=== PATIENT | female | born 1935 | race African-American/Black ===

== ENCOUNTER 2017-04-16 09:33 | Inpatient (IN) | payer MEDICARE, BC ==
[~2017-04-16] VITALS: Ht 162.6 cm; Wt 88.5 kg
[~2017-04-16 09:33] MED LIST: ALBU8.5H3 INH; APIX5TAB PO; DIGO125T PO; METO-448 PO; OMEP20CA16 PO; PRED10TA PO
[2017-04-16] MEDS ORDERED: ONDANSETRON 4 MG INJ IV PRN ×2 (10:00→13:00)
[2017-04-16] MEDS ORDERED: ACETAMINOPHEN 325 MG TAB PO PRN ×2 (10:00→13:00)
--- NOTE | 2017-04-16 10:09 | ERA ---
ER Documentation Chief Complaint Date/Time DATE: 04/16/17 TIME: 10:08 Chief Complaint bib paramedics from [facility] ( direct admit) - abdominal pain HPI Patient is a 81-year-old female with hypertension and diabetes who presents with abdominal pain and rectal bleeding. She was transferred from [facility] due to insurance reasons. She was supposed to be a direct admission but there were no beds available on the floor so the patient was transferred to the ER. The patient has had abdominal pain and rectal bleeding for the past 1 week. She has rectal bleeding with every bowel movement. She denies syncope. She has left-sided abdominal pain. ROS All systems reviewed and are negative except as per history of present illness. Medications Home Meds Active Scripts Prednisone (Prednisone) 10 Mg Tab, 10 MG PO ONCE@09, #20 TAB Take 3 tabs for 2 days, then 2 tabs for 2 days, then 1 tab for 2 days, then stop Prov:DALLAS PICKETT 03/22/15 Metoprolol Tartrate* (Lopressor*) 25 Mg Tab, 75 MG PO BID, #120 TAB 3 Refills Prov:DALLAS PICKETT 03/22/15 Digoxin* (Digitek*) 0.125 Mg Tab, 0.125 MG PO DAILY@13, #30 3 Refills Prov:DALLAS PICKETT 03/22/15 Apixaban* (Eliquis*) 5 Mg Tablet, 5 MG PO BID, #90 3 Refills take 10mg (2 tabs) twice a day for 2 days, then 5mg (1 tab) twice a day Prov:DALLAS PICKETT 03/22/15 Reported Medications Albuterol Sulfate* (Proair HFA*) 8.5 Gm Hfa.aer.ad, 2 PUFF INH Q6H Y for WHEEZING AND SOB, INH 03/16/15 Omeprazole* (Omeprazole*) 20 Mg Capsule.dr, 20 MG PO DAILY, CAP 03/16/15 Allergies Allergies: Coded Allergies: No Known Allergy (Unverified , 03/19/15) PMhx/Soc Anesthesia Reaction: No Hx Neurological Disorder: No Hx Respiratory Disorders: No Hx Cardiac Disorders: Yes (HTN) Hx Psychiatric Problems: No Hx Miscellaneous Medical Probl: Yes (asthma, htn) Hx Alcohol Use: No Hx Substance Use: No Hx Tobacco Use: Yes (part of 1 cig/day) FmHx Family History: No diabetes Physical Exam Vitals Vital Signs Date Time Temp Pulse Resp B/P Pulse Ox O2 Delivery O2 Flow Rate FiO2 04/16/17 09:51 98.4 64 19 150/74 98 Physical Exam Const: No acute distress Head: Atraumatic Eyes: Normal Conjunctiva ENT: Normal External Ears, Nose and Mouth. Neck: Full range of motion..~ No meningismus. Resp: Clear to auscultation bilaterally Cardio: Regular rate and rhythm, no murmurs Abd: Soft, left lower quadrant tenderness to palpation without rebound or guarding Skin: No petechiae or rashes Back: No midline or flank tenderness Ext: No cyanosis, or edema Neur: Awake and alert Psych: Normal Mood and Affect Results 24 hrs Current Medications Medications (Trade) Dose Ordered Sig/Srinivas Route PRN Reason Start Time Stop Time Status Last Admin Dose Admin Ondansetron HCl (Zofran Inj) 4 mg BRIDGE ORDER PRN IV NAUSEA AND/OR VOMITING 04/16/17 10:00 04/17/17 09:59 Acetaminophen (Tylenol Tab) 650 mg ER BRIDGE PRN PO MILD PAIN/FEVER 04/16/17 10:00 04/17/17 09:59 Procedures/MDM Laboratory studies and imaging studies done at [facility] were reviewed in the ER. Smoking Cessation Therapy: Pt. was lectured for greater than 3 minutes on the health risks of continued smoking and the benefits of cessation. Patient is a 81-year-old female who presents with rectal bleeding and diverticulitis. The patient was transferred and was supposed to be a direct admission but unfortunately there were no beds available. I spoke with Dr. Hdz from the panel team as the patient has preferred [employer] insurance and will be admitted to the panel team. The patient will be admitted to a medical surgical bed. Departure Diagnosis: Primary Impression: GI bleed Qualified Code: K92.2 - Gastrointestinal hemorrhage, unspecified gastrointestinal hemorrhage type Additional Impression: Diverticulitis Qualified Code: K57.33 - Diverticulitis of large intestine without perforation or abscess with bleeding Condition: KIKI Hightower MD Apr 16, 2017 10:09
--- NOTE | 2017-04-16 11:14 | HP ---
Date/Time of Note Date/Time of Note DATE: 04/16/17 TIME: 11:14 Assessment/Plan VTE Prophylaxis VTE Prophylaxis Intervention: SCD's Assessment/Plan Assessment/Plan 81 yo F with AFib on anticoagulation admitted for BRBPR and abd pain, imaging with diverticulosis without diverticulitis. Suspect this is the etio of pt's BRBPR and it was exacerbated by pt's NOAC #diverticulosis NPO, IVFs consider general surgery eval if symptoms persist #AFib -cont bb and dig -check dig level -hold ATC #?hematuria -check UA DVT prophx: SCDs only HPI/ROS Admit Date/Time Admit Date/Time Hx of Present Illness CC: abd pain abd BRBPR 81 yo F with pmhx AFib on anticoagulation presented to OSH with c/o 3-4 weeks of constant abd pain, and 3-4 days of BRBPR, also possibly had an episode of hematuria. Pt denies any similar symptoms previously. OSH ER CT with diverticulosis without diverticulitis or abscess, hgb 14. Pt denies any fevers, chills, nausea, or vomiting. PMH/Family/Social Past Medical History AFib on ATC ?asthma Social History lives in the community with her daughter and grandchildren Exam/Review of Systems Vital Signs Vitals Vital Signs Date Time Temp Pulse Resp B/P Pulse Ox O2 Delivery O2 Flow Rate FiO2 04/16/17 09:51 98.4 64 19 150/74 98 Exam Exam nad EOMI MMM lungs clear rrr no mrg abd soft no le edema no rashes OSH labs and imaging reviewed of note PCP checked a CA 125 for unclear reason, returned at 36.4. No ovarian abnormalities seen on OSH imaging negative RADHA and unremarkable rectal exam per OSH documentation RAMIRO MORRIS MD Apr 16, 2017 11:14
[2017-04-16] MEDS ORDERED: morphine 4 MG/ML VIAL IV STA (11:19)
[2017-04-16] MEDS ORDERED: ONDANSETRON 4 MG TAB PO PRN (13:00)
[2017-04-16] MEDS ORDERED: NACL 0.9% 3 ML SYG IV SCH (13:00)
[2017-04-16] MEDS ORDERED: morphine 2 MG INJ IV PRN (13:00)
[2017-04-16] MEDS: SOD CHLORIDE 0.9% 1,000 ML IV SCH ×2 (13:13→19:09)
[2017-04-16 15:22] VITALS: Ht 162.6 cm; Wt 88.5 kg
[2017-04-16 15:24] VITALS: BP 184/84; PULSE 59; RESP 18
[2017-04-16] MEDS: DIGOXIN 0.125 MG TAB PO SCH (16:39)
[2017-04-16 17:15] VITALS: BP 154/80; PULSE 70; RESP 15
[2017-04-16 20:00] VITALS: BP 189/84; PULSE 63; RESP 18
[2017-04-16] MEDS ORDERED: hydrALAzine 20 MG INJ IV PRN ×2 (20:00)
[2017-04-16] MEDS: METOPROLOL 25 MG TAB PO SCH (20:03)
[2017-04-16] MEDS: HYDROCODONE/APAP (5/325) TAB PO PRN (20:03)
[2017-04-16 20:35] VITALS: BP 156/69; PULSE 76; RESP 18
[2017-04-16] MEDS: INSULIN ASPART [NOVOLOG] 3 ML PEN SC SCH (20:42)
[2017-04-16] MEDS ORDERED: GLUCAGON 1 MG INJ IM PRN (21:00)
[2017-04-16] MEDS ORDERED: GLUCOSE GEL 15 GRAM TUBE PO PRN ×2 (21:00)
[2017-04-16] MEDS ORDERED: GLUCOSE GEL 15 GRAM TUBE BUCCAL PRN (21:00)
[2017-04-16] MEDS ORDERED: DEXTROSE 50% 50 ML SYRINGE IV PRN ×2 (21:00)
[2017-04-16 23:02] LABS: ADD UMIC NO; UR ASCORBIC ACID NEGATIVE (NEGATIVE); UR BILIRUBIN (Dip) NEGATIVE (NEGATIVE); UR BLOOD (Dip) NEGATIVE (NEGATIVE); UR CLARITY CLEAR (CLEAR); UR COLOR STRAW (YELLOW); UR GLUCOSE (Dip) NEGATIVE (NEGATIVE); UR KETONES (Dip) NEGATIVE (NEGATIVE); UR LEUKOCYTE ESTERASE (Dip) NEGATIVE Leu/ul (NEGATIVE); UR NITRITE (Dip) NEGATIVE (NEGATIVE); UR SPECIFIC GRAVITY (Dip) 1.004 (1.003-1.030); UR TOTAL PROTEIN (Dip) NEGATIVE (NEGATIVE); UR UROBILINOGEN (Dip) NEGATIVE (NEGATIVE)
[2017-04-16 23:07] VITALS: BP 135/65; PULSE 75; RESP 18
[2017-04-17] VITALS (11 sets, daily range): BP systolic 135–211; BP diastolic 66–102; PULSE 73–95; RESP 18–20
[2017-04-17] MEDS ORDERED: ACCU-CHEK XX SCH (02:00)
[2017-04-17] MEDS: ACCU-CHEK XX SCH (02:00)
[2017-04-17] MEDS: SOD CHLORIDE 0.9% 1,000 ML IV SCH ×3 (03:25→22:05)
[2017-04-17] MEDS: ALBUTEROL 18 GM INHALER INH PRN ×2 (05:15→12:58)
[2017-04-17] MEDS: HYDROCODONE/APAP (5/325) TAB PO PRN (05:15)
[2017-04-17] MEDS: PANTOPRAZOLE (EC) 40 MG TAB PO SCH (05:15)
[2017-04-17 05:30] LABS: BASOPHILS % 0.9 % (0.0-2.0); EOSINOPHILS # 0.4 10^3/ul (0.0-0.5); EOSINOPHILS % 7.7 % (0.0-7.0); HEMOGLOBIN 13.5 g/dl (12.0-16.0); LYMPHOCYTES # 1.5 10^3/ul (0.8-2.9); LYMPHOCYTES % 32.6 % (15.0-51.0); MEAN CORPUSCULAR HEMOGLOBIN 28.4 pg (29.0-33.0); MEAN CORPUSCULAR HGB CONC 32.1 g/dl (32.0-37.0); MEAN CORPUSCULAR VOLUME 88.4 fl (82.0-101.0); MONOCYTE # 0.5 10^3/ul (0.3-0.9); MONOCYTES % 10.2 % (0.0-11.0); NEUTROPHIL # 2.3 10^3/ul (1.6-7.5); NEUTROPHILS % 48.4 % (39.0-77.0); PLATELET COUNT 153 10^3/UL (140-415); RED BLOOD COUNT 4.75 10^6/ul (4.20-5.40); RED CELL DISTRIBUTION WIDTH 14.4 % (11.5-14.5); WHITE BLOOD COUNT 4.7 10^3/ul (4.8-10.8)
[2017-04-17 06:15] LABS: CALCIUM 9.3 mg/dl (8.4-10.2); CREATININE 1.09 mg/dl (0.44-1.00); POTASSIUM 4.4 mmol/L (3.5-5.1)
[2017-04-17] MEDS: INSULIN ASPART [NOVOLOG] 3 ML PEN SC SCH ×4 (07:50→21:00)
[2017-04-17] MEDS: METOPROLOL 25 MG TAB PO SCH ×2 (08:47→20:14)
[2017-04-17] MEDS ORDERED: predniSONE 10 MG TAB PO SCH (09:00)
[2017-04-17] MEDS: DIGOXIN 0.125 MG TAB PO SCH (12:11)
--- NOTE | 2017-04-17 14:21 | CONS ---
Date/Time of Note Date/Time of Note DATE: 04/17/17 TIME: 14:03 Assessment/Plan Assessment/Plan Additional Assessment/Plan Assessment * Hematochezia R/O Diverticulosis vs R/O supratherapeutic INR vs others * COPD Asthma * Atrial fibrillation * Hypertension * History of DVT Plan * Stool occult blood * monitor hemoglobin and hematocrit ,transfuse per protocol * Colonoscopy tomorrow risks and benefit explained to patient * Clearance to be secured with Pulmonary * Check PT and INR * start patient on clear liquids Consultation Date/Type/Reason Admit Date/Time Date of Consultation: Apr 17, 2017 Type of Consultation: gastroenterology Reason for Consultation hematochezia Referring Provider: RAMIRO MORRIS MD Hx of Present Illness 81 year old female with past medical history of atrial fibrillation on anticoagulation,diabetes,COPD was transferred to our hospital room because of hematochezia.Patient was initially seen at [facility] complaining left lower quadrant pain with hematochezia 2 days.She denies any history of chest pain,nausea nor vomiting nor hematemesis.Laboratory workup performed at at [place] revealed CT scan multiple gallstone,small right kidney, diverticulosis with.diverticulitis,normal appendix,no signs of obstruction.PT 15.8PTT 33.4. Presently ,patient complains of shortness of breath on Oxygen 2 liters,denies any abdominal pain and claims to be hungry.No evidence of hematochezia. We have discuss the planned to do possible colonoscopy tomorrow once cleared by pulmonary ,will check PT,INR and correct it before any planned procedure Constitutional: improved, no complaints Eyes: no complaints ENT: no complaints Respiratory: shortness of breath Cardiovascular: no complaints Gastrointestinal: blood, pain Genitourinary: no complaints Musculoskeletal: no complaints Skin: no complaints Neurologic: no complaints Endocrine: no complaints Lymphatic: no complaints Psychological: nl mood/affect, no complaints Immunologic: no complaints Past Medical History Medical History: deep vein thrombosis, gallstones, hypertension, hypothyroid, other (atrial fibrillation,asthma) Social History Smoking Status: Current every day smoker Exam/Review of Systems Vital Signs Vitals Vital Signs Date Time Temp Pulse Resp B/P Pulse Ox O2 Delivery O2 Flow Rate FiO2 04/17/17 08:17 97.6 78 18 153/94 98 04/17/17 06:36 Nasal Cannula Intake and Output 04/16/17 04/16/17 04/17/17 15:00 23:00 07:00 Intake Total 1310 ml Output Total 900 ml Balance 410 ml Exam Constitutional: alert, frail, oriented Psych: nl mood/affect Head: atraumatic, normocephalic Eyes: EOMI, PERRL, nl conjunctiva, nl lids, nl sclera ENMT: nl external ears & nose, nl lips & teeth, nl nasal mucosa & septum, other (2 liter oxygen) Neck: non-tender, supple Respiratory: diminished breath sounds, normal air movement Cardiovascular: irregular rhythm, nl pulses Gastrointestinal: nl liver, spleen, non-tender, soft Musculoskeletal: nl extremities to inspection, nl gait and stance Extremities: normal pulses Neurological: nl mental status, nl speech, nl strength Skin: nl turgor, No rash or lesions Lymph: nl lymph nodes Results Result Diagram: 04/17/17 0448 04/17/178 Results 24 hrs Laboratory Tests Test 04/16/17 20:41 04/16/17 22:50 04/17/17 01:56 04/17/17 04:48 Bedside Glucose 163 104 Urine Color STRAW Urine Clarity CLEAR Urine pH 7.0 Urine Specific [place] 1.004 Urine Ketones NEGATIVE Urine Nitrite NEGATIVE Urine Bilirubin NEGATIVE Urine Urobilinogen NEGATIVE Urine Leukocyte Esterase NEGATIVE Urine Hemoglobin NEGATIVE Urine Glucose NEGATIVE Urine Total Protein NEGATIVE White Blood Count 4.7 #L Red Blood Count 4.75 Hemoglobin 13.5 Hematocrit 42.0 Mean Corpuscular Volume 88.4 Mean Corpuscular Hemoglobin 28.4 L Mean Corpuscular Hemoglobin Concent 32.1 Red Cell Distribution Width 14.4 Platelet Count 153 Mean Platelet Volume 12.0 #H Neutrophils % 48.4 Lymphocytes % 32.6 Monocytes % 10.2 Eosinophils % 7.7 H Basophils % 0.9 Nucleated Red Blood Cells % 0.0 Neutrophils # 2.3 Lymphocytes # 1.5 Monocytes # 0.5 Eosinophils # 0.4 Basophils # 0.0 Nucleated Red Blood Cells # 0.0 Sodium Level 145 H Potassium Level 4.4 Chloride Level 108 Carbon Dioxide Level 25 Anion Gap 16 Blood Urea Nitrogen 17 Creatinine 1.09 H Glucose Level 96 Calcium Level 9.3 Digoxin Level 0.5 L Test 04/17/17 08:46 04/17/17 12:07 Bedside Glucose 100 103 Medications Medications Current Medications Sodium Chloride (NS) 1,000 ml @ 125 mls/hr Q8H IV Last administered on 12:11; Admin Dose 125 MLS/HR; Start 04/16/17 at 12:38 Ondansetron HCl (Zofran Tab) 4 mg Q6H PRN PO NAUSEA AND/OR VOMITING; Start at 13:00 Ondansetron HCl (Zofran Inj) 4 mg Q6H PRN IV NAUSEA AND/OR VOMITING; Start at 13:00 Acetaminophen (Tylenol Tab) 650 mg Q6H PRN PO PAIN LEVEL 1-3 OR FEVER; Start at 13:00 Acetaminophen/ Hydrocodone Bitart ([place] (5/325)) 1 tab Q6H PRN PO MODERATE PAIN LEVEL 4-6 Last administered on 04/17/17 05:15; Admin Dose 1 TAB; Start at 13:00 Morphine Sulfate (morphine) 2 mg Q4H PRN IV SEVERE PAIN LEVEL 7-10; Start 04/16 at 13:00 Albuterol (Ventolin Hfa) 2 puff Q6H PRN INH WHEEZING AND SOB Last administered on 04/17/17 12:58; Admin Dose 2 PUFF; Start 04/16/17 at 13:00 Digoxin (Digoxin) 0.125 mg DAILY@13 PO Last administered on 04/17/17 12:11; Admin Dose 0.125 MG; Start 04/16/17 at 13:00 Metoprolol Tartrate (Lopressor) 75 mg BID PO Last administered on 04/17/17 08: 47; Admin Dose 75 MG; Start 04/16/17 at 21:00 Pantoprazole (Protonix Tab) 40 mg DAILY@06 PO Last administered on 04/17/17 05 :15; Admin Dose 40 MG; Start 04/17/17 at 06:00 Diagnostic Test (Pha) (Accu-Chek) 1 ea 02 XX ; Start 04/17/17 at 02:00 Miscellaneous Information 1 ea NOTE XX ; Start 04/16/17 at 21:00 Glucose (Glutose) 15 gm Q15M PRN PO DECREASED GLUCOSE; Start 04/16/17 at 21:00 Glucose (Glutose) 22.5 gm Q15M PRN PO DECREASED GLUCOSE; Start 04/16/17 at 21: 00 Dextrose (D50w Syringe) 25 ml Q15M PRN IV DECREASED GLUCOSE; Start 04/16/17 at 21:00 Dextrose (D50w Syringe) 50 ml Q15M PRN IV DECREASED GLUCOSE; Start 04/16/17 at 21:00 Glucagon (Glucagen) 1 mg Q15M PRN IM DECREASED GLUCOSE; Start 04/16/17 at 21:00 Glucose (Glutose) 15 gm Q15M PRN BUCCAL DECREASED GLUCOSE; Start 04/16/17 at 21 :00 ANNE IBARRA MD Apr 17, 2017 14:14
[2017-04-17] MEDS ORDERED: BISACODYL (EC) 5 MG TAB PO ONE (14:30)
[2017-04-17] MEDS ORDERED: MAGNESIUM CITRATE 300 ML BTL PO ONE (17:30)
--- NOTE | 2017-04-17 17:42 | PN ---
Date/Time of Note Date/Time of Note DATE: 04/17/17 TIME: 17:41 Assessment/Plan VTE Prophylaxis VTE Prophylaxis Intervention: SCD's Lines/Catheters IV Catheter Type (from Nrsg): Peripheral IV Assessment/Plan Assessment/Plan 81 yo F with AFib on anticoagulation admitted for BRBPR and abd pain, imaging with diverticulosis without diverticulitis. Suspect this is the etio of pt's BRBPR and it was exacerbated by pt's NOAC #diverticulosis GI eval, f/u recs #AFib -cont bb and dig -check dig level low, checking albumin -hold ATC #?hematuria -UA without any blood. suspect pt had BRBPR which she falsely attributed though can get repeat UA as outpatient DVT prophx: SCDs only Subjective 24 Hr Interval Summary Free Text/Dictation abd pain unchanged. Pt with a small BM with blood earlier this AM Exam/Review of Systems Vital Signs Vitals Vital Signs Date Time Temp Pulse Resp B/P Pulse Ox O2 Delivery O2 Flow Rate FiO2 04/17/17 15:04 98.0 80 18 136/101 96 04/17/17 06:36 Nasal Cannula Intake and Output 04/16/17 04/16/17 04/17/17 15:00 23:00 07:00 Intake Total 1310 ml Output Total 900 ml Balance 410 ml Exam nad no mrg lungs clear abd soft no rashes hgb 13s Results Result Diagram: 04/17/17 0448 04/17/17 0448 Results 24 hrs Laboratory Tests Test 04/16/17 20:41 04/16/17 22:50 04/17/17 01:56 04/17/17 04:48 Bedside Glucose 163 104 Urine Color STRAW Urine Clarity CLEAR Urine pH 7.0 Urine Specific [place] 1.004 Urine Ketones NEGATIVE Urine Nitrite NEGATIVE Urine Bilirubin NEGATIVE Urine Urobilinogen NEGATIVE Urine Leukocyte Esterase NEGATIVE Urine Hemoglobin NEGATIVE Urine Glucose NEGATIVE Urine Total Protein NEGATIVE White Blood Count 4.7 #L Red Blood Count 4.75 Hemoglobin 13.5 Hematocrit 42.0 Mean Corpuscular Volume 88.4 Mean Corpuscular Hemoglobin 28.4 L Mean Corpuscular Hemoglobin Concent 32.1 Red Cell Distribution Width 14.4 Platelet Count 153 Mean Platelet Volume 12.0 #H Neutrophils % 48.4 Lymphocytes % 32.6 Monocytes % 10.2 Eosinophils % 7.7 H Basophils % 0.9 Nucleated Red Blood Cells % 0.0 Neutrophils # 2.3 Lymphocytes # 1.5 Monocytes # 0.5 Eosinophils # 0.4 Basophils # 0.0 Nucleated Red Blood Cells # 0.0 Sodium Level 145 H Potassium Level 4.4 Chloride Level 108 Carbon Dioxide Level 25 Anion Gap 16 Blood Urea Nitrogen 17 Creatinine 1.09 H Glucose Level 96 Calcium Level 9.3 Digoxin Level 0.5 L Test 04/17/17 08:46 04/17/17 12:07 04/17/17 17:36 Bedside Glucose 100 103 191 Medications Medications Current Medications Sodium Chloride (NS) 1,000 ml @ 125 mls/hr Q8H IV Last administered on 12:11; Admin Dose 125 MLS/HR; Start 04/16/17 at 12:38 Ondansetron HCl (Zofran Tab) 4 mg Q6H PRN PO NAUSEA AND/OR VOMITING; Start at 13:00 Ondansetron HCl (Zofran Inj) 4 mg Q6H PRN IV NAUSEA AND/OR VOMITING; Start at 13:00 Acetaminophen (Tylenol Tab) 650 mg Q6H PRN PO PAIN LEVEL 1-3 OR FEVER; Start at 13:00 Acetaminophen/ Hydrocodone Bitart ([place] (5/325)) 1 tab Q6H PRN PO MODERATE PAIN LEVEL 4-6 Last administered on 04/17/17 05:15; Admin Dose 1 TAB; Start at 13:00 Morphine Sulfate (morphine) 2 mg Q4H PRN IV SEVERE PAIN LEVEL 7-10; Start 04/16 at 13:00 Albuterol (Ventolin Hfa) 2 puff Q6H PRN INH WHEEZING AND SOB Last administered on 04/17/17 12:58; Admin Dose 2 PUFF; Start 04/16/17 at 13:00 Digoxin (Digoxin) 0.125 mg DAILY@13 PO Last administered on 04/17/17 12:11; Admin Dose 0.125 MG; Start 04/16/17 at 13:00 Metoprolol Tartrate (Lopressor) 75 mg BID PO Last administered on 04/17/17 08: 47; Admin Dose 75 MG; Start 04/16/17 at 21:00 Pantoprazole (Protonix Tab) 40 mg DAILY@06 PO Last administered on 04/17/17t 05 :15; Admin Dose 40 MG; Start 04/17/17 at 06:00 Diagnostic Test (Pha) (Accu-Chek) 1 ea 02 XX ; Start 04/17/17 at 02:00 Miscellaneous Information 1 ea NOTE XX ; Start 04/16/17 at 21:00 Glucose (Glutose) 15 gm Q15M PRN PO DECREASED GLUCOSE; Start 04/16/17 at 21:00 Glucose (Glutose) 22.5 gm Q15M PRN PO DECREASED GLUCOSE; Start 04/16/17 at 21: 00 Dextrose (D50w Syringe) 25 ml Q15M PRN IV DECREASED GLUCOSE; Start 04/16/17 at 21:00 Dextrose (D50w Syringe) 50 ml Q15M PRN IV DECREASED GLUCOSE; Start 04/16/17 at 21:00 Glucagon (Glucagen) 1 mg Q15M PRN IM DECREASED GLUCOSE; Start 04/16/17 at 21:00 Glucose (Glutose) 15 gm Q15M PRN BUCCAL DECREASED GLUCOSE; Start 04/16/17 at 21 :00 Polyethylene Glycol (Miralax) 119 gm ONCE ONCE PO ; Start 04/17/17 at 18:30; Stop 04/17/17 at 18:31 RAMIRO MORRIS MD Apr 17, 2017 17:42
[2017-04-17] MEDS: ALBUTEROL/IPRATROPIUM (NEB) 3 ML AMP HHN SCH ×2 (17:53→20:37)
--- NOTE | 2017-04-17 18:09 | RADRPT ---
PROCEDURE: XR Chest. CLINICAL INDICATION: Preoperative. TECHNIQUE: Single frontal view. COMPARISON: None. FINDINGS: The lungs are clear. The heart is enlarged. There is calcification in the aorta consistent with atherosclerosis. Surgic al clips are present in the neck. There is no pleural effusion. There is no pneumothorax. IMPRESSION: 1. Cardiomegaly and atherosclerosis. 2. Prior neck surgery. 3. Clear lungs. RPTAT: QQ .Melvin Yap MD, MD Date Time Electronically viewed and signed by .Melvin Yap MD, MD on 04/17/2017 18:09 .R/
[2017-04-17] MEDS ORDERED: POLYETHYLENE GLYCOL 3350 119 GM POWDER PO ONE (18:30)
[2017-04-17] MEDS ORDERED: hydrALAzine 20 MG INJ IV PRN (21:30)
[2017-04-17] MEDS ORDERED: AMLODIPINE 10 MG TAB PO ONE (21:30)
[2017-04-18] VITALS (20 sets, daily range): BP systolic 120–176; BP diastolic 58–92; PULSE 80–100; RESP 16–20
[2017-04-18] MEDS: ACCU-CHEK XX SCH (01:12)
[2017-04-18] MEDS: ALBUTEROL/IPRATROPIUM (NEB) 3 ML AMP HHN SCH ×6 (01:20→21:00)
[2017-04-18] MEDS: SOD CHLORIDE 0.9% 1,000 ML IV SCH ×4 (04:38→23:27)
[2017-04-18 05:39] LABS: INR 1.24; PROTIME 15.7 Sec (12.2-14.2); PT RATIO 1.2
[2017-04-18 05:43] LABS: BASOPHILS % 0.4 % (0.0-2.0); EOSINOPHILS # 0.2 10^3/ul (0.0-0.5); EOSINOPHILS % 3.7 % (0.0-7.0); HEMATOCRIT 45.7 % (37.0-47.0); HEMOGLOBIN 14.5 g/dl (12.0-16.0); LYMPHOCYTES # 1.5 10^3/ul (0.8-2.9); LYMPHOCYTES % 28.7 % (15.0-51.0); MEAN CORPUSCULAR HEMOGLOBIN 27.9 pg (29.0-33.0); MEAN CORPUSCULAR HGB CONC 31.7 g/dl (32.0-37.0); MEAN CORPUSCULAR VOLUME 88.1 fl (82.0-101.0); MEAN PLATELET VOLUME 12.3 fl (7.4-10.4); MONOCYTE # 0.5 10^3/ul (0.3-0.9); MONOCYTES % 10.1 % (0.0-11.0); NEUTROPHIL # 3.1 10^3/ul (1.6-7.5); NEUTROPHILS % 56.9 % (39.0-77.0); PLATELET COUNT 117 10^3/UL (140-415); RED BLOOD COUNT 5.19 10^6/ul (4.20-5.40); RED CELL DISTRIBUTION WIDTH 14.6 % (11.5-14.5); WHITE BLOOD COUNT 5.4 10^3/ul (4.8-10.8)
[2017-04-18] MEDS: PANTOPRAZOLE (EC) 40 MG TAB PO SCH (06:00)
[2017-04-18] MEDS ORDERED: POLYETHYLENE GLYCOL 3350 119 GM POWDER PO ONE ×2 (06:00→06:26)
[2017-04-18 06:58] LABS: ALBUMIN 3.6 g/dl (3.3-4.9); ALBUMIN/GLOBULIN RATIO 1.28; BILIRUBIN,INDIRECT 0.3 mg/dl (0-1.1); BILIRUBIN,TOTAL 0.3 mg/dl (0.2-1.3); CALCIUM 9.2 mg/dl (8.4-10.2); CREATININE 1.01 mg/dl (0.44-1.00); POTASSIUM 4.2 mmol/L (3.5-5.1); TOTAL PROTEIN 6.4 g/dl (6.1-8.1)
[2017-04-18] MEDS: INSULIN ASPART [NOVOLOG] 3 ML PEN SC SCH ×4 (07:50→21:06)
[2017-04-18] MEDS ORDERED: BISACODYL (EC) 5 MG TAB PO ONE (08:00)
[2017-04-18] MEDS: METOPROLOL 25 MG TAB PO SCH ×2 (09:24→21:13)
--- NOTE | 2017-04-18 11:43 | PN ---
Date/Time of Note Date/Time of Note DATE: 04/18/17 TIME: 11:42 Assessment/Plan VTE Prophylaxis VTE Prophylaxis Intervention: SCD's Lines/Catheters IV [facility]from [facility]): Peripheral IV Urinary Cath still in place: No Assessment/Plan Assessment/Plan 81 yo F with AFib on anticoagulation admitted for BRBPR and abd pain, imaging with diverticulosis without diverticulitis. Suspect this is the etio of pt's BRBPR and it was exacerbated by pt's NOAC #diverticulosis -GI eval, Cscope today? -holding NOAC #AFib -cont bb and dig -dig level low, recheck level prior to discharge -hold ATC #asthma: cont home inhalers pulm cs per GI request #?hematuria -UA without any blood. suspect pt had BRBPR which she falsely attributed though can get repeat UA as outpatient DVT prophx: SCDs only Subjective 24 Hr Interval Summary Free Text/Dictation Pt resting comfortably this AM. Negative UA results dw pt Exam/Review of Systems Vital Signs Vitals Vital Signs Date Time Temp Pulse Resp B/P Pulse Ox O2 Delivery O2 Flow Rate FiO2 04/18/17 09:20 88 20 99 Nasal Cannula 2.0 04/18/17 08:01 98.6 136/62 Intake and Output 04/17/17 04/17/17 04/18/17 15:00 23:00 07:00 Intake Total 750 ml 1105 ml 950 ml Output Total 800 ml Balance 750 ml 1105 ml 150 ml Exam nad no mrg lungs clear abd soft no rashes hgb 14s Results Result Diagram: 04/18/17 0432 04/18/17 0432 Results 24 hrs Laboratory Tests Test 04/17/17 12:07 04/17/17 17:36 04/17/17 21:10 04/18/17 04:32 Bedside Glucose 103 191 111 White Blood Count 5.4 Red Blood Count 5.19 Hemoglobin 14.5 Hematocrit 45.7 Mean Corpuscular Volume 88.1 Mean Corpuscular Hemoglobin 27.9 L Mean Corpuscular Hemoglobin Concent 31.7 L Red Cell Distribution Width 14.6 H Platelet Count 117 #L Mean Platelet Volume 12.3 H Neutrophils % 56.9 Lymphocytes % 28.7 Monocytes % 10.1 Eosinophils % 3.7 Basophils % 0.4 Nucleated Red Blood Cells % 0.0 Neutrophils # 3.1 Lymphocytes # 1.5 Monocytes # 0.5 Eosinophils # 0.2 Basophils # 0.0 Nucleated Red Blood Cells # 0.0 Prothrombin Time 15.7 H Prothrombin Time Ratio 1.2 INR International Normalized Ratio 1.24 Activated Partial Thromboplast Time 26.9 Sodium Level 145 H Potassium Level 4.2 Chloride Level 109 Carbon Dioxide Level 24 Anion Gap 16 Blood Urea Nitrogen 12 Creatinine 1.01 H Glucose Level 128 Calcium Level 9.2 Total Bilirubin 0.3 Direct Bilirubin 0.00 Indirect Bilirubin 0.3 Aspartate Amino Transf (AST/SGOT) 21 Alanine Aminotransferase (ALT/SGPT) 22 Alkaline Phosphatase 65 Total Protein 6.4 Albumin 3.6 Globulin 2.80 Albumin/Globulin Ratio 1.28 Test 04/18/17 08:21 Bedside Glucose 135 Medications Medications Current Medications Sodium Chloride (NS) 1,000 ml @ 125 mls/hr Q8H IV Last administered on 22:05; Admin Dose 125 MLS/HR; Start 04/16/17 at 12:38 Ondansetron HCl (Zofran Tab) 4 mg Q6H PRN PO NAUSEA AND/OR VOMITING; Start at 13:00 Ondansetron HCl (Zofran Inj) 4 mg Q6H PRN IV NAUSEA AND/OR VOMITING Last administered on 04/17/17 20:55; Admin Dose 4 MG; Start 04/16/17 at 13:00 Acetaminophen (Tylenol Tab) 650 mg Q6H PRN PO PAIN LEVEL 1-3 OR FEVER Last administered on 04/18/17 09:27; Admin Dose 650 MG; Start 04/16/17 at 13:00 Acetaminophen/ Hydrocodone Bitart ([place] (5/325)) 1 tab Q6H PRN PO MODERATE PAIN LEVEL 4-6 Last administered on 04/17/17 05:15; Admin Dose 1 TAB; Start at 13:00 Morphine Sulfate (morphine) 2 mg Q4H PRN IV SEVERE PAIN LEVEL 7-10 Last administered on 04/17/17 20:17; Admin Dose 2 MG; Start 04/16/17 at 13:00 Albuterol (Ventolin Hfa) 2 puff Q6H PRN INH WHEEZING AND SOB Last administered on 04/17/17 12:58; Admin Dose 2 PUFF; Start 04/16/17 at 13:00 Digoxin (Digoxin) 0.125 mg DAILY@13 PO Last administered on 04/17/17 12:11; Admin Dose 0.125 MG; Start 04/16/17 at 13:00 Metoprolol Tartrate (Lopressor) 75 mg BID PO Last administered on 04/18/17 09: 24; Admin Dose 75 MG; Start 04/16/17 at 21:00 Pantoprazole (Protonix Tab) 40 mg DAILY@06 PO Last administered on 04/17/17 05 :15; Admin Dose 40 MG; Start 04/17/17 at 06:00 Diagnostic Test (Pha) (Accu-Chek) 1 ea 02 XX ; Start 04/17/17 at 02:00 Miscellaneous Information 1 ea NOTE XX ; Start 04/16/17 at 21:00 Glucose (Glutose) 15 gm Q15M PRN PO DECREASED GLUCOSE; Start 04/16/17 at 21:00 Glucose (Glutose) 22.5 gm Q15M PRN PO DECREASED GLUCOSE; Start 04/16/17 at 21: 00 Dextrose (D50w Syringe) 25 ml Q15M PRN IV DECREASED GLUCOSE; Start 04/16/17 at 21:00 Dextrose (D50w Syringe) 50 ml Q15M PRN IV DECREASED GLUCOSE; Start 04/16/17 at 21:00 Glucagon (Glucagen) 1 mg Q15M PRN IM DECREASED GLUCOSE; Start 04/16/17 at 21:00 Glucose (Glutose) 15 gm Q15M PRN BUCCAL DECREASED GLUCOSE; Start 04/16/17 at 21 :00 Hydralazine HCl (Apresoline) 10 mg Q6H PRN IV ELEVATED BLOOD PRESSURE Last administered on 04/17/17 22:07; Admin Dose 10 MG; Start 04/17/17 at 21:30 RAMIRO MORRIS MD Apr 18, 2017 11:43
[2017-04-18] MEDS: DIGOXIN 0.125 MG TAB PO SCH (13:36)
--- NOTE | 2017-04-18 14:47 | CONS ---
Date/Time of Note Date/Time of Note DATE: 04/18/17 TIME: 14:44 Assessment/Plan Assessment/Plan Chief Complaint/Hosp Course Assessment 1. Lower GI bleed etiology unclear, possible diverticular disease. 2. Likely COPD given extensive and ongoing tobacco history. 3. Chronic hypoxemic respiratory failure is agreed to above Plan 1. Colonoscopy scheduled for today. Stable to proceed from pulmonary standpoint. Will require continued supplemental oxygen. 2. Advised on smoking cessation and follow-up with me as an outpatient 3. Continue bronchodilators if needed during this admission 4. GI recommendations following procedure Problems: Consultation Date/Type/Reason Admit Date/Time Date of Consultation: Apr 18, 2017 Type of Consultation: Pulmonary Hx of Present Illness 81-year-old lady presents with 3-4 day history of bright red blood per rectum. No syncopal episodes no loss of consciousness no hemoptysis or hematemesis. She had a CT of the abdomen which showed diverticulosis but no diverticulitis. Currently she has mild suprapubic tenderness but no acute abdomen. Upon further questioning she has supplemental O2 for several years now from an extensive tobacco history. She says she started smoking at the age of 14 continues to smoke to this day. She is currently smoking less than half a pack a day with the addition of supplemental oxygen by nasal cannula! Patient takes anticoagulation for chronic atrial fibrillation. Patient states she has had no recent exacerbations of her COPD she currently does not have a pulmonary physician. As above. Constitutional: improved, no complaints Eyes: no complaints ENT: no complaints Respiratory: shortness of breath Cardiovascular: no complaints Gastrointestinal: blood, pain Genitourinary: no complaints Musculoskeletal: no complaints Skin: no complaints Neurologic: no complaints Endocrine: no complaints Lymphatic: no complaints Psychological: nl mood/affect Immunologic: no complaints Past Medical History Atrial fibrillation Medical History: deep vein thrombosis, gallstones, hypertension, hypothyroid, other (atrial fibrillation,asthma) Social History Smoking Status: Current every day smoker Exam/Review of Systems Vital Signs Vitals Vital Signs Date Time Temp Pulse Resp B/P Pulse Ox O2 Delivery O2 Flow Rate FiO2 04/18/17 13:57 98.6 85 20 154/75 99 04/18/17 13:25 Nasal Cannula 2.0 Intake and Output 04/17/17 04/17/17 04/18/17 15:00 23:00 07:00 Intake Total 750 ml 1105 ml 950 ml Output Total 800 ml Balance 750 ml 1105 ml 150 ml Exam GENERAL: Well-nourished well-developed lady comfortable at rest talking full complete sentences VITAL SIGNS: per chart NECK: Supple. No JVD or lymphadenopathy. CARDIAC EXAM: S1, S2. No added sounds or murmurs. CHEST: clear bilaterally, No added sounds, rales or wheezes ABDOMEN: Soft, nontender. No guarding or rebound. EXTREMITIES: No cyanosis, clubbing or edema. NEUROLOGIC: Generalized weakness. No focal deficits. Results Result Diagram: 04/18/17 0432 04/18/17 0432 Results 24 hrs Laboratory Tests Test 04/17/17 17:36 04/17/17 21:10 04/18/17 04:32 04/18/17 08:21 Bedside Glucose 191 111 135 White Blood Count 5.4 Red Blood Count 5.19 Hemoglobin 14.5 Hematocrit 45.7 Mean Corpuscular Volume 88.1 Mean Corpuscular Hemoglobin 27.9 L Mean Corpuscular Hemoglobin Concent 31.7 L Red Cell Distribution Width 14.6 H Platelet Count 117 #L Mean Platelet Volume 12.3 H Neutrophils % 56.9 Lymphocytes % 28.7 Monocytes % 10.1 Eosinophils % 3.7 Basophils % 0.4 Nucleated Red Blood Cells % 0.0 Neutrophils # 3.1 Lymphocytes # 1.5 Monocytes # 0.5 Eosinophils # 0.2 Basophils # 0.0 Nucleated Red Blood Cells # 0.0 Prothrombin Time 15.7 H Prothrombin Time Ratio 1.2 INR International Normalized Ratio 1.24 Activated Partial Thromboplast Time 26.9 Sodium Level 145 H Potassium Level 4.2 Chloride Level 109 Carbon Dioxide Level 24 Anion Gap 16 Blood Urea Nitrogen 12 Creatinine 1.01 H Glucose Level 128 Calcium Level 9.2 Total Bilirubin 0.3 Direct Bilirubin 0.00 Indirect Bilirubin 0.3 Aspartate Amino Transf (AST/SGOT) 21 Alanine Aminotransferase (ALT/SGPT) 22 Alkaline Phosphatase 65 Total Protein 6.4 Albumin 3.6 Globulin 2.80 Albumin/Globulin Ratio 1.28 Test 04/18/17 12:27 Bedside Glucose 127 Medications Medications Current Medications Sodium Chloride (NS) 1,000 ml @ 125 mls/hr Q8H IV Last administered on t 12:27; Admin Dose 125 MLS/HR; Start 04/16/17 at 12:38 Ondansetron HCl (Zofran Tab) 4 mg Q6H PRN PO NAUSEA AND/OR VOMITING; Start at 13:00 Ondansetron HCl (Zofran Inj) 4 mg Q6H PRN IV NAUSEA AND/OR VOMITING Last administered on 04/17/17 20:55; Admin Dose 4 MG; Start 04/16/17 at 13:00 Acetaminophen (Tylenol Tab) 650 mg Q6H PRN PO PAIN LEVEL 1-3 OR FEVER Last administered on 04/18/17 09:27; Admin Dose 650 MG; Start 04/16/17 at 13:00 Acetaminophen/ Hydrocodone Bitart ([place] (5/325)) 1 tab Q6H PRN PO MODERATE PAIN LEVEL 4-6 Last administered on 04/17/17 05:15; Admin Dose 1 TAB; Start at 13:00 Morphine Sulfate (morphine) 2 mg Q4H PRN IV SEVERE PAIN LEVEL 7-10 Last administered on 04/17/17 20:17; Admin Dose 2 MG; Start 04/16/17 at 13:00 Albuterol (Ventolin Hfa) 2 puff Q6H PRN INH WHEEZING AND SOB Last administered on 04/17/17 12:58; Admin Dose 2 PUFF; Start 04/16/17 at 13:00 Digoxin (Digoxin) 0.125 mg DAILY@13 PO Last administered on 04/18/17 13:36; Admin Dose 0.125 MG; Start 04/16/17 at 13:00 Metoprolol Tartrate (Lopressor) 75 mg BID PO Last administered on 04/18/17 09: 24; Admin Dose 75 MG; Start 04/16/17 at 21:00 Pantoprazole (Protonix Tab) 40 mg DAILY@06 PO Last administered on 04/17/17 05 :15; Admin Dose 40 MG; Start 04/17/17 at 06:00 Diagnostic Test (Pha) (Accu-Chek) 1 ea 02 XX ; Start 04/17/17 at 02:00 Miscellaneous Information 1 ea NOTE XX ; Start 04/16/17 at 21:00 Glucose (Glutose) 15 gm Q15M PRN PO DECREASED GLUCOSE; Start 04/16/17 at 21:00 Glucose (Glutose) 22.5 gm Q15M PRN PO DECREASED GLUCOSE; Start 04/16/17 at 21: 00 Dextrose (D50w Syringe) 25 ml Q15M PRN IV DECREASED GLUCOSE; Start 04/16/17 at 21:00 Dextrose (D50w Syringe) 50 ml Q15M PRN IV DECREASED GLUCOSE; Start 04/16/17 at 21:00 Glucagon (Glucagen) 1 mg Q15M PRN IM DECREASED GLUCOSE; Start 04/16/17 at 21:00 Glucose (Glutose) 15 gm Q15M PRN BUCCAL DECREASED GLUCOSE; Start 04/16/17 at 21 :00 Hydralazine HCl (Apresoline) 10 mg Q6H PRN IV ELEVATED BLOOD PRESSURE Last administered on 04/17/17t 22:07; Admin Dose 10 MG; Start 04/17/17 at 21:30 PAT[facility] FRANKS [facility], [facility] Apr 18, 2017 14:47
[2017-04-18] MEDS ORDERED: ONDANSETRON 4 MG INJ IV PRN (16:00)
[2017-04-18] MEDS ORDERED: HYDROmorphONE (0.2 MG/ML) 10ML SYG IV PRN (16:00)
[2017-04-18] MEDS ORDERED: LIDOCAINE 2% (SDV) 5 ML INJ ONE (16:05)
[2017-04-18] MEDS ORDERED: PROPOFOL 20 ML ONE (16:05)
--- NOTE | 2017-04-18 16:35 | OPR ---
Date/Time of Note Date/Time of Note DATE: 04/18/17 TIME: 16:34 Operative Report Preoperative Diagnosis * Hematochezia Postoperative Diagnosis Impression: * Poor preparation precludes adequate examination * Diverticulosis left side of the colon * Large internal hemorrhoids Plan: * Advance diet as tolerated * Repeat colonoscopy within 6 months with 2 day preparation . Operation/Procedure Performed * Colonoscopy Surgeon: ANNE IBARRA MD Anesthesia: MAC Estimated Blood Loss: none Specimens * None Grafts/Implants * None Complications: None ANNE IBARRA MD Apr 18, 2017 16:35
[2017-04-18] MEDS ORDERED: LABETALOL HCL 20MG INJ IV PRN (17:00)
[2017-04-18] MEDS ORDERED: hydrALAzine 20 MG INJ IV PRN (17:00)
--- NOTE | 2017-04-18 19:05 | RADRPT ---
Vent Rate: 89 bpm RR Interval: 0 msec NE Interval: 0 msec QRS Duration: 104 msec QT Interval: 350 msec QTC Interval: 425 msec P-R-T Nichols: 0 - -57 - 110 degrees Atrial fibrillation Left axis deviation Minimal voltage criteria for LVH, may be normal variant Anterior infarct , age undetermined ST amp; T wave abnormality, consider lateral ischemia or digitalis effect Abnormal ECG Electronically Signed By: Shaquille Virk [id number]
[2017-04-19 00:02] VITALS: BP 135/85
[2017-04-19] MEDS: ALBUTEROL/IPRATROPIUM (NEB) 3 ML AMP HHN SCH ×4 (01:00→12:43)
[2017-04-19] MEDS: ACCU-CHEK XX SCH (02:00)
[2017-04-19] MEDS: SOD CHLORIDE 0.9% 1,000 ML IV SCH ×2 (04:38→08:33)
[2017-04-19 04:50] LABS: BASOPHILS % 0.6 % (0.0-2.0); EOSINOPHILS # 0.1 10^3/ul (0.0-0.5); EOSINOPHILS % 2.6 % (0.0-7.0); HEMATOCRIT 42.4 % (37.0-47.0); HEMOGLOBIN 13.3 g/dl (12.0-16.0); LYMPHOCYTES # 1.3 10^3/ul (0.8-2.9); LYMPHOCYTES % 24.8 % (15.0-51.0); MEAN CORPUSCULAR HEMOGLOBIN 27.6 pg (29.0-33.0); MEAN CORPUSCULAR HGB CONC 31.4 g/dl (32.0-37.0); MEAN PLATELET VOLUME 11.7 fl (7.4-10.4); MONOCYTE # 0.5 10^3/ul (0.3-0.9); MONOCYTES % 9.6 % (0.0-11.0); NEUTROPHIL # 3.4 10^3/ul (1.6-7.5); PLATELET COUNT 151 10^3/UL (140-415); RED BLOOD COUNT 4.82 10^6/ul (4.20-5.40); RED CELL DISTRIBUTION WIDTH 14.7 % (11.5-14.5); WHITE BLOOD COUNT 5.4 10^3/ul (4.8-10.8)
[2017-04-19] MEDS: PANTOPRAZOLE (EC) 40 MG TAB PO SCH (05:35)
[2017-04-19] MEDS: INSULIN ASPART [NOVOLOG] 3 ML PEN SC SCH ×2 (07:50→13:07)
[2017-04-19 07:56] VITALS: BP 170/82; RESP 16
[2017-04-19] MEDS: METOPROLOL 25 MG TAB PO SCH (08:33)
--- NOTE | 2017-04-19 09:26 | CONS ---
Date/Time of Note Date/Time of Note DATE: 04/19/17 TIME: 09:25 Assessment/Plan Assessment/Plan Additional Assessment/Plan Assessment and recommendations; 1. Patient admitted for GI bleed with underlying history of COPD which is fairly stable at this point. Continue current supportive care. Further GI workup is pending. Consultation Date/Type/Reason Admit Date/Time Apr 16, 2017 at 09:37 Initial Consult Date 04/18/17 Type of Consultation: Pulmonary Referring Provider: RAMIRO MORRIS MD 24 HR Interval Summary Free Text/Dictation Patient condition stable. Denies any shortness of breath, chest pain. Any further GI bleed. Denies any abdominal pain, nausea or vomiting. General exam; elderly woman, awake and alert, currently in no distress. Exam/Review of Systems Vital Signs Vitals Vital Signs Date Time Temp Pulse Resp B/P Pulse Ox O2 Delivery O2 Flow Rate FiO2 04/19/17 08:16 78 18 99 Nasal Cannula 2.0 04/19/17 07:56 98.1 170/82 Intake and Output 04/18/17 04/18/17 04/19/17 15:00 23:00 07:00 Intake Total 1050 ml 1898 ml Balance 1050 ml 1898 ml Exam HEENT exam; supple neck, no JVD. No lymphadenopathy. Midline trachea. No thyromegaly. Patient is edentulous and wears dentures. Has bilateral intraocular lens implants. Chest exam; diminished but clear breath sound. S1-S2 audible, no murmurs. Abdomen exam; soft, nontender. There is very minimal suprapubic tenderness. Bowel sounds audible. No organomegaly. Extremity exam; no peripheral edema. No clubbing. Pulses 1+ bilaterally. HOSPITAL ADMINISTRATOR exam; no focal deficit. Results Result Diagram: 04/19/17 0422 04/18/17 0432 Results 24 hrs Laboratory Tests Test 04/18/17 12:27 04/18/17 16:52 04/18/17 21:03 04/19/17 02:25 Bedside Glucose 127 95 183 117 Test 04/19/17 04:22 04/19/17 08:36 White Blood Count 5.4 Red Blood Count 4.82 Hemoglobin 13.3 Hematocrit 42.4 Mean Corpuscular Volume 88.0 Mean Corpuscular Hemoglobin 27.6 L Mean Corpuscular Hemoglobin Concent 31.4 L Red Cell Distribution Width 14.7 H Platelet Count 151 # Mean Platelet Volume 11.7 H Neutrophils % 62.0 Lymphocytes % 24.8 Monocytes % 9.6 Eosinophils % 2.6 Basophils % 0.6 Nucleated Red Blood Cells % 0.0 Neutrophils # 3.4 Lymphocytes # 1.3 Monocytes # 0.5 Eosinophils # 0.1 Basophils # 0.0 Nucleated Red Blood Cells # 0.0 Digoxin Level 0.5 L Bedside Glucose 97 Medications Medications Current Medications Sodium Chloride (NS) 1,000 ml @ 125 mls/hr Q8H IV Last administered on 08:33; Admin Dose 125 MLS/HR; Start 04/16/17 at 12:38 Ondansetron HCl (Zofran Tab) 4 mg Q6H PRN PO NAUSEA AND/OR VOMITING; Start at 13:00 Ondansetron HCl (Zofran Inj) 4 mg Q6H PRN IV NAUSEA AND/OR VOMITING Last administered on 04/17/17 20:55; Admin Dose 4 MG; Start 04/16/17 at 13:00 Acetaminophen (Tylenol Tab) 650 mg Q6H PRN PO PAIN LEVEL 1-3 OR FEVER Last administered on 04/18/17 09:27; Admin Dose 650 MG; Start 04/16/17 at 13:00 Acetaminophen/ Hydrocodone Bitart ([place] (5/325)) 1 tab Q6H PRN PO MODERATE PAIN LEVEL 4-6 Last administered on 04/17/17 05:15; Admin Dose 1 TAB; Start at 13:00 Morphine Sulfate (morphine) 2 mg Q4H PRN IV SEVERE PAIN LEVEL 7-10 Last administered on 04/17/17 20:17; Admin Dose 2 MG; Start 04/16/17 at 13:00 Albuterol (Ventolin Hfa) 2 puff Q6H PRN INH WHEEZING AND SOB Last administered on 04/17/17 12:58; Admin Dose 2 PUFF; Start 04/16/17 at 13:00 Digoxin (Digoxin) 0.125 mg DAILY@13 PO Last administered on 04/18/17 13:36; Admin Dose 0.125 MG; Start 04/16/17 at 13:00 Metoprolol Tartrate (Lopressor) 75 mg BID PO Last administered on 04/19/17 08: 33; Admin Dose 75 MG; Start 04/16/17 at 21:00 Pantoprazole (Protonix Tab) 40 mg DAILY@06 PO Last administered on 04/19/17 05 :35; Admin Dose 40 MG; Start 04/17/17 at 06:00 Diagnostic Test (Pha) (Accu-Chek) 1 ea 02 XX ; Start 04/17/17 at 02:00 Miscellaneous Information 1 ea NOTE XX ; Start 04/16/17 at 21:00 Glucose (Glutose) 15 gm Q15M PRN PO DECREASED GLUCOSE; Start 04/16/17 at 21:00 Glucose (Glutose) 22.5 gm Q15M PRN PO DECREASED GLUCOSE; Start 04/16/17 at 21: 00 Dextrose (D50w Syringe) 25 ml Q15M PRN IV DECREASED GLUCOSE; Start 04/16/17 at 21:00 Dextrose (D50w Syringe) 50 ml Q15M PRN IV DECREASED GLUCOSE; Start 04/16/17 at 21:00 Glucagon (Glucagen) 1 mg Q15M PRN IM DECREASED GLUCOSE; Start 04/16/17 at 21:00 Glucose (Glutose) 15 gm Q15M PRN BUCCAL DECREASED GLUCOSE; Start 04/16/17 at 21 :00 Hydralazine HCl (Apresoline) 10 mg Q6H PRN IV ELEVATED BLOOD PRESSURE Last administered on 04/17/17 22:07; Admin Dose 10 MG; Start 04/17/17 at 21:30 ZACH HEALY Apr 19, 2017 09:26
--- NOTE | 2017-04-19 09:43 | PDOCDIS ---
Discharge Instructions DIAGNOSIS Discharge Diagnosis diverticulosis, internal hemorrhoids CONDITION Patient Condition: Stable HOME CARE INSTRUCTIONS: Special Diet: nothing by mouth FOLLOW UP/APPOINTMENTS Follow-up Plan Schedule a follow up appointment with your regular doctor within the next 7 days. Do not take your blood thinner (Eliquis) until you see your regular doctor. Also your digoxin level was slightly low (0.5). Please let your regular doctor know in case he/she wants to change the dose. The nuclear criticality safety engineer/stomach doctor is advising a follow up colonoscopy in 6 months. Please call his office to schedule a post discharge follow up appointment Dr Kishor Vang Office Address [id number] [address] Office RAMIRO MORRIS MD Apr 19, 2017 09:43
--- NOTE | 2017-04-19 09:45 | DS ---
Date/Time of Note Date/Time of Note DATE: 04/19/17 TIME: 09:43 Discharge Summary Admission/Discharge Info Admit Date/Time Apr 16, 2017 at 09:37 Discharge Date/Time Discharge Diagnosis diverticulosis, internal hemorrhoids Patient Condition: Good Consults gastroenterology Hx of Present Illness CC: abd pain abd BRBPR 81 yo F with pmhx AFib on anticoagulation presented to OSH with c/o 3-4 weeks of constant abd pain, and 3-4 days of BRBPR, also possibly had an episode of hematuria. Pt denies any similar symptoms previously. OSH ER CT with diverticulosis without diverticulitis or abscess, hgb 14. Pt denies any fevers, chills, nausea, or vomiting. Hospital Course Assessment 1. Lower GI bleed etiology unclear, possible diverticular disease. 2. Likely COPD given extensive and ongoing tobacco history. 3. Chronic hypoxemic respiratory failure is agreed to above Plan 1. Colonoscopy scheduled for today. Stable to proceed from pulmonary standpoint. Will require continued supplemental oxygen. 2. Advised on smoking cessation and follow-up with me as an outpatient 3. Continue bronchodilators if needed during this admission 4. GI recommendations following procedure Home Meds Active Scripts Temazepam* (Temazepam*) 15 Mg Capsule, 15 MG PO HS Y for INSOMNIA for 1 Day, #1 CAP Prov:RAMIRO MORRIS MD 04/19/17 Glipizide* (Glipizide*) 10 Mg Tablet, 10 MG PO DAILY for 30 Days, #30 TAB Prov:RAMIRO MORRIS MD 04/19/17 Nifedipine* (Nifedipine ER*) 60 Mg Tablet.sa, 60 MG PO DAILY for 30 Days, #30 TAB.SA Prov:RAMIRO MORRIS MD 04/19/17 Lisinopril* (Lisinopril*) 40 Mg Tablet, 40 MG PO DAILY, #30 TAB Prov:RAMIRO MORRIS MD 04/19/17 Metoprolol Tartrate* (Lopressor*) 25 Mg Tab, 50 MG PO BID, #120 TAB 3 Refills Prov:RAMIRO MORRIS MD 04/19/17 Metformin Hcl* (Metformin Hcl*) 1,000 Mg Tablet, 1000 MG PO BID, #30 TAB Prov:RAMIRO MORRIS MD 04/19/17 Digoxin* (Digitek*) 0.125 Mg Tab, 0.125 MG PO DAILY@13, #30 3 Refills Prov:NIEVES,DALLAS 03/22/15 Reported Medications Albuterol Sulfate* (Proair HFA*) 8.5 Gm Hfa.aer.ad, 2 PUFF INH Q6H Y for WHEEZING AND SOB, INH 03/16/15 Omeprazole* (Omeprazole*) 20 Mg Capsule.dr, 20 MG PO DAILY, CAP 03/16/15 Discontinued Scripts Apixaban* (Eliquis*) 5 Mg Tablet, 5 MG PO BID, #90 3 Refills take 10mg (2 tabs) twice a day for 2 days, then 5mg (1 tab) twice a day Prov:DALLAS PICKETT 03/22/15 Prednisone (Prednisone) 10 Mg Tab, 10 MG PO ONCE@09, #20 TAB Take 3 tabs for 2 days, then 2 tabs for 2 days, then 1 tab for 2 days, then stop Prov:DALLAS PICKETT 03/22/15 Follow-up Plan hold kevin PCP f/u within 7 days to discuss when to restart PCP to possibly adjust digoxin level GI f/u for scheduling repeat CScope Primary Care Provider Gordy Nunez DO Time spent on discharge: > 30 minutes Pending Labs Laboratory Tests Test 04/18/17 12:27 04/18/17 16:52 04/18/17 21:03 04/19/17 02:25 Bedside Glucose 127mg/dL (70-220) 95mg/dL (70-220) 183mg/dL (70-220) 117mg/dL (70-220) Test 04/19/17 04:22 04/19/17 08:36 White Blood Count 5.410^3/ul (4.8-10.8) Red Blood Count 4.8210^6/ul (4.20-5.40) Hemoglobin 13.3g/dl (12.0-16.0) Hematocrit 42.4% (37.0-47.0) Mean Corpuscular Volume 88.0fl (82.0-101.0) Mean Corpuscular Hemoglobin 27.6pg (29.0-33.0) Mean Corpuscular Hemoglobin Concent 31.4g/dl (32.0-37.0) Red Cell Distribution Width 14.7% (11.5-14.5) Platelet Count 51191^3/UL (140-415) Mean Platelet Volume 11.7fl (7.4-10.4) Neutrophils % 62.0% (39.0-77.0) Lymphocytes % 24.8% (15.0-51.0) Monocytes % 9.6% (0.0-11.0) Eosinophils % 2.6% (0.0-7.0) Basophils % 0.6% (0.0-2.0) Nucleated Red Blood Cells % 0.0/100WBC (0.0-0.0) Neutrophils # 3.410^3/ul (1.6-7.5) Lymphocytes # 1.310^3/ul (0.8-2.9) Monocytes # 0.510^3/ul (0.3-0.9) Eosinophils # 0.110^3/ul (0.0-0.5) Basophils # 0.010^3/ul (0.0-0.1) Nucleated Red Blood Cells # 0.010^3/ul (0.0-0.0) Digoxin Level 0.5ng/ml (1.0-2.0) Bedside Glucose 97mg/dL (70-220) RAMIRO MORRIS MD Apr 19, 2017 09:45
[2017-04-19] MEDS ORDERED: METF1000 PO (10:39)
[2017-04-19] MEDS ORDERED: LISI40TA9 PO (10:41)
[2017-04-19] MEDS ORDERED: METO-448 PO (10:41)
[2017-04-19] MEDS ORDERED: NIFE60TA7 PO (10:42)
[2017-04-19] MEDS ORDERED: GLIP-95 PO (10:42)
[2017-04-19] MEDS ORDERED: TEMA15CA PO (10:43)
--- NOTE | 2017-04-19 10:57 | DS ---
Date/Time of Note Date/Time of Note DATE: 04/19/17 TIME: 10:55 Discharge Summary Admission/Discharge Info Admit Date/Time Apr 16, 2017 at 09:37 Discharge Date/Time Discharge Diagnosis diverticulosis, internal hemorrhoids Patient Condition: Good Consults gastroenterology, pulmonology Procedures CT done at OSH ER prior to admission: diverticulosis without diverticulitis ovaries not identified CScope 7.28 Impression: * Poor preparation precludes adequate examination * Diverticulosis left side of the colon * Large internal hemorrhoids Plan: * Repeat colonoscopy within 6 months with 2 day preparation Hx of Present Illness CC: abd pain abd BRBPR 81 yo F with pmhx AFib on anticoagulation presented to OSH with c/o 3-4 weeks of constant abd pain, and 3-4 days of BRBPR, also possibly had an episode of hematuria. Pt denies any similar symptoms previously. OSH ER CT with diverticulosis without diverticulitis or abscess, hgb 14. Pt denies any fevers, chills, nausea, or vomiting. Hospital Course 81 yo F with hx AFib NOT on anticoagulation transferred from [facility] in [place] for insurance reasons. Pt had presented to OSH with c/o abd pain, BRBPR. OSH imaging the diverticulosis without diverticulitis, hgb 13- 14. Pt seen by GI, underwent CScope notable for poor prep, diverticulosis and internal hemorrhoids. Hgb remained stable during pt's time in the hospital. Pulm saw patient as GI had wanted preprocedure clearance given hx of smoking, pt advised to stop smoking and continue PRN albuterol. Of note, med rec done on admission by ?ER? ?nurse? had patient as being on Eliquis. She is not on this medication. I called her preferred [facility] and was told an rx was sent over by a physician at [facility] that was never picked up. Pt has no recollection of being at [facility] in the recent past. Labs during patient's stay notable for slightly low digoxin level of 0.5. Defer to PCP re need for adjustment. On paperwork from PCP, it was also indicated that pt's CA 125 is slightly high at 36. 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 Patient to f/u with GI for diverticulosis and internal hemorrhoids or can be referred to general surgery at PCP's discretion Pt will need repeat c scope in 6 mos given poor prep. Copy of this discharge summary, pt's OSH CT report, and patient's lab work provided to patient to bring to PCP f/u appt. Pt also given rx for Metamucil. Home Meds Active Scripts Psyllium Husk (Metamucil) 0.52 Gm Capsule, 0.52 GM PO DAILY for 30 Days, #30 CAP Prov:RAMIRO MORRIS MD 04/19/17 Temazepam* (Temazepam*) 15 Mg Capsule, 15 MG PO HS Y for INSOMNIA for 1 Day, #1 CAP Prov:RAMIRO MORRIS MD 04/19/17 Glipizide* (Glipizide*) 10 Mg Tablet, 10 MG PO DAILY for 30 Days, #30 TAB Prov:RAMIRO MORRIS MD 04/19/17 Nifedipine* (Nifedipine ER*) 60 Mg Tablet.sa, 60 MG PO DAILY for 30 Days, #30 TAB.SA Prov:RAMIRO MORRIS MD 04/19/17 Lisinopril* (Lisinopril*) 40 Mg Tablet, 40 MG PO DAILY, #30 TAB Prov:RAMIRO MORRIS MD 04/19/17 Metoprolol Tartrate* (Lopressor*) 25 Mg Tab, 50 MG PO BID, #120 TAB 3 Refills Prov:RAMIRO MORRIS MD 04/19/17 Metformin Hcl* (Metformin Hcl*) 1,000 Mg Tablet, 1000 MG PO BID, #30 TAB Prov:RAMIRO MORRIS MD 04/19/17 Digoxin* (Digitek*) 0.125 Mg Tab, 0.125 MG PO DAILY@13, #30 3 Refills Prov:DALLAS PICKETT 03/22/15 Reported Medications Albuterol Sulfate* (Proair HFA*) 8.5 Gm Hfa.aer.ad, 2 PUFF INH Q6H Y for WHEEZING AND SOB, INH 03/16/15 Omeprazole* (Omeprazole*) 20 Mg Capsule.dr, 20 MG PO DAILY, CAP 03/16/15 Discontinued Scripts Apixaban* (Eliquis*) 5 Mg Tablet, 5 MG PO BID, #90 3 Refills take 10mg (2 tabs) twice a day for 2 days, then 5mg (1 tab) twice a day Prov:DALLAS PICKETT 03/22/15 Prednisone (Prednisone) 10 Mg Tab, 10 MG PO ONCE@09, #20 TAB Take 3 tabs for 2 days, then 2 tabs for 2 days, then 1 tab for 2 days, then stop Prov:DALLAS PICKETT 03/22/15 Follow-up Plan PCP Friday at 2pm GI within next 2 weeks Primary Care Provider juanpablo denton Time spent on discharge: > 30 minutes Pending Labs Laboratory Tests Test 04/18/17 12:27 04/18/17 16:52 04/18/17 21:03 04/19/17 02:25 Bedside Glucose 127mg/dL (70-220) 95mg/dL (70-220) 183mg/dL (70-220) 117mg/dL (70-220) Test 04/19/17 04:22 04/19/17 08:36 White Blood Count 5.410^3/ul (4.8-10.8) Red Blood Count 4.8210^6/ul (4.20-5.40) Hemoglobin 13.3g/dl (12.0-16.0) Hematocrit 42.4% (37.0-47.0) Mean Corpuscular Volume 88.0fl (82.0-101.0) Mean Corpuscular Hemoglobin 27.6pg (29.0-33.0) Mean Corpuscular Hemoglobin Concent 31.4g/dl (32.0-37.0) Red Cell Distribution Width 14.7% (11.5-14.5) Platelet Count 67122^3/UL (140-415) Mean Platelet Volume 11.7fl (7.4-10.4) Neutrophils % 62.0% (39.0-77.0) Lymphocytes % 24.8% (15.0-51.0) Monocytes % 9.6% (0.0-11.0) Eosinophils % 2.6% (0.0-7.0) Basophils % 0.6% (0.0-2.0) Nucleated Red Blood Cells % 0.0/100WBC (0.0-0.0) Neutrophils # 3.410^3/ul (1.6-7.5) Lymphocytes # 1.310^3/ul (0.8-2.9) Monocytes # 0.510^3/ul (0.3-0.9) Eosinophils # 0.110^3/ul (0.0-0.5) Basophils # 0.010^3/ul (0.0-0.1) Nucleated Red Blood Cells # 0.010^3/ul (0.0-0.0) Digoxin Level 0.5ng/ml (1.0-2.0) Bedside Glucose 97mg/dL (70-220) RAMIRO MORRIS MD Apr 19, 2017 10:57
[2017-04-19] MEDS ORDERED: PSYL0.5213 PO (11:10)
[2017-04-19 11:37] VITALS: BP 172/77; PULSE 72
[2017-04-19] MEDS: DIGOXIN 0.125 MG TAB PO SCH (13:02)
--- NOTE | 2017-04-23 06:22 | GILP ---
DATE OF PROCEDURE: 04/18/2017 PROCEDURE: Colonoscopy to cecum. HISTORY AND INDICATIONS: The patient is being evaluated for hematochezia. PREMEDICATION: Monitored anesthesia care by anesthesiologist. INSTRUMENT USED: Olympus colonoscope. PREPARATION: Very poor despite extensive lavage, compromising the examination to a significant extent TECHNIQUE: After informed consent, with the patient/relatives understanding the procedure, its indications potential risks and complications, including but not limited to: allergic reaction, bleeding, perforation, infection, missed lesions and after all pertinent questions were answered to the patient's satisfaction, the patient/relatives signed the witnessed informed consent. Following this, premedication was administered slowly IV push by under careful cardiovascular and respiratory monitoring with pulse oximetry, automatic blood pressure and automotive dismantler. Once the sedative effect was achieved, the patient was placed in the left lateral decubitus position, digital rectal examination was performed. The colonoscope was then introduced and advanced under visual control throughout all segments of the colon including: the rectum, sigmoid, descending colon, splenic flexure, transverse colon, hepatic flexure, ascending colon and finally reaching the cecum which was clearly identified by transillumination, finger indentation and the ileocecal valve. Careful examination of the mucosa of the lower gastrointestinal tract both on insertion as well as withdrawal of the instrument disclosed the following findings: RECTAL EXAMINATION: No evidence of perirectal disease, no masses. COLONIC MUCOSA: There is diverticulosis in the left side of the colon which is significant. Again, the preparation is suboptimal and the right side of the colon could not be fully evaluated. The instrument was then withdrawn and re-examined the mucosa in detail. No additional abnormalities are noted with the exception of moderate-sized internal hemorrhoids. The instrument was then withdrawn, the patient tolerated the procedure well and was transferred out of the Endoscopy Suite awake and in good condition to continue recovery under observation. IMPRESSION: 1. Extremely poor preparation renders this examination suboptimal. 2. Diverticulosis, left side of the colon. 3. Moderate-sized internal hemorrhoids. RECOMMENDATIONS: The patient will be continued on present regimen. Repeat colonoscopy within 6 months is recommended. Dictated By: Kishor Vang MD /dylon/anabel /Document#: [id number]
== END 2017-04-19 13:10 | disposition home or self-care (01) | DRG 392 ==
LOC: E/R 09:33 → MS3 09:37 → MS1 17:49
PROVIDERS: ADMIT Internal Medicine; ATTEND Internal Medicine
PROC: 0DJD8ZZ Inspection of Lower Intestinal Tract, Via Natural or Artificial Opening Endoscopic (ICD-10-PCS; principal; 2017-04-18 17:00)
DX: K57.30 Diverticulosis of large intestine without perforation or abscess without bleeding (principal); J96.11 Chronic respiratory failure with hypoxia; I48.2 Chronic atrial fibrillation; J44.9 Chronic obstructive pulmonary disease, unspecified; Z79.01 Long term (current) use of anticoagulants; I10 Essential (primary) hypertension; Z86.718 Personal history of other venous thrombosis and embolism; E11.9 Type 2 diabetes mellitus without complications; E03.9 Hypothyroidism, unspecified; J45.909 Unspecified asthma, uncomplicated; F17.210 Nicotine dependence, cigarettes, uncomplicated; K64.8 Other hemorrhoids; R31.9 Hematuria, unspecified
CPT/HCPCS: 71010; 80048; 80053; 80162; 81003; 82962; 85025; 85610; 85730; 93005; 94640; 94664; 96361; 96374; 96375; J0360; J1815; J2270; J2405; J7030

== ENCOUNTER 2018-03-13 22:18 | Inpatient (IN) | END 2018-04-07 17:55 | disposition home health service (06) | DRG 190 ==

== ENCOUNTER 2018-08-03 21:47 | Inpatient (IN) | END 2018-08-09 20:16 | disposition home health service (06) | DRG 264 ==

== ENCOUNTER 2018-09-09 14:23 | Inpatient (IN) | payer MEDICARE, BC ==
[~2018-09-09] VITALS: Ht 162.6 cm; Wt 96.7 kg
[~2018-09-09 14:23] MED LIST changes: -ALBU8.5H3 INH; +ALBU8.5H8 INH; +ASPI-831 PO; +CLOT30CR35 TOP; +DILT120C77 PO; +FLUT1AER INH; +FURO40TA4 PO; +HYDR-3672 PO; +INSU100I33 SC; +LINA5TAB PO; +NOVO3I SC; -PRED10TA PO; +PSYL0.5213 PO; +TEMA15CA PO; +TIOT18CA INH
--- NOTE | 2018-09-09 15:15 | ERD ---
ER Documentation Chief Complaint Chief Complaint sob x 2 days HPI The patient is is a 83-year-old female, presenting to the ER because she has acute dyspnea on her way to [facility] for wound check. She complains of dyspnea on exertion, denies chest pain with vomiting/diaphoresis/exertion/radiation. She has similar symptoms previously, denies fever, chills, neck pain, chest pain, abdominal pain, vomiting or dysuria, diarrhea. She used to smoke 1-2 years ago, does not drink. Past medical history: Diabetes mellitus, hypertension, anxiety, history of CHF, asthma, history of PE, history of bilateral lower extremity DVT, pulmonary hypertension, chronic kidney disease, history of proximal atrial fibrillation, peripheral artery disease, aortic stenosis, chronic right lower extremity wound. Past surgical history: Hysterectomy, thyroidectomy ROS All systems reviewed and are negative except as per history of present illness. Medications Home Meds Active Scripts Furosemide* (Furosemide*) 40 Mg Tablet, 40 MG PO DAILY, #30 TAB Prov:DAVID RAUSCH NP 08/09/18 Clotrimazole* (Lotrimin*) 1%-30 Gm Cream..g., 1 APPLIC TOP BID, #1 TUB Please apply to the right lower extremity wound twice daily. Prov:DAVID RAUSCH NP 08/09/18 Insulin Glargine,Hum.rec.anlog (Basaglar Kwikpen U-100) 100 Unit/1 Ml Insuln.pen, 5 UNIT SC DAILY for 30 Days, #1 EA Prov:RAMIRO MORRIS MD 04/05/18 Linagliptin (TRADJENTA) 5 Mg Tablet, 5 MG PO DAILY for 30 Days, #30 TAB Prov:RAMIRO MORRIS MD 04/05/18 Insulin Aspart* (Novolog Insulin Pen*) 100 Unit/Ml Soln, 10 UNIT SC WITH LUNCH for 30 Days, #1 EA Prov:RAMIRO MORRIS MD 04/05/18 Insulin Aspart* (Novolog Insulin Pen*) 100 Unit/Ml Soln, 10 UNIT SC WITH DINNER for 30 Days, #1 EA Prov:RAMIRO MORRIS MD 04/05/18 Insulin Aspart* (Novolog Insulin Pen*) 100 Unit/Ml Soln, 6 UNIT SC WITH BREAKFAST for 30 Days, #1 EA Prov:RAMIRO MORRIS MD 7/15/18 Fluticasone-Vilanterol (Breo Ellipta Inhaler) 100-25 Mcg/Actuation Aer.pow.ba, 1 INH INH DAILY for 30 Days, #1 EA Prov:RAMIRO MORRIS MD 04/05/18 Aspirin (Aspirin) 81 Mg Chew, 81 MG PO DAILY for 30 Days, #30 TAB Prov:RAMIRO MORRIS MD 04/05/18 Metoprolol Tartrate* (Lopressor*) 25 Mg Tab, 75 MG PO BID for 30 Days, #60 TAB Prov:RAMIRO MORRIS MD 04/05/18 Hydralazine Hcl* (Apresoline*) 50 Mg Tab, 50 MG PO Q8 for 30 Days, #90 TAB Prov:RAMIRO MORRIS MD 04/05/18 Diltiazem Hcl* (Cardizem CD*) 120 Mg Cap.sr.24h, 120 MG PO BID for 30 Days, #60 TAB Prov:RAMIRO MORRIS MD 04/05/18 Apixaban* (Eliquis*) 5 Mg Tablet, 2.5 MG PO BID for 30 Days, #60 TAB Prov:RAMIRO MORRIS MD 04/05/18 Tiotropium [place]* (Spiriva*) 18 Mcg Cap.w.dev, 1 INH INH DAILY for 30 Days, #30 CAP Prov:RAMIRO MORRIS MD 04/05/18 Psyllium Husk (Metamucil) 0.52 Gm Capsule, 0.52 GM PO DAILY for 30 Days, #30 CAP Prov:RAMIRO MORRIS MD 04/19/17 Digoxin* (Digitek*) 0.125 Mg Tab, 0.125 MG PO DAILY@13, #30 3 Refills Prov:DALLAS PICKETT 03/22/15 Reported Medications Albuterol Sulfate* (Proair HFA*) 8.5 Gm Hfa.aer.ad, 2 PUFF INH Q6H PRN for WHEEZING AND SOB, INH 03/16/15 Omeprazole* (Omeprazole*) 20 Mg Capsule.dr, 20 MG PO DAILY, CAP 03/16/15 Discontinued Scripts Temazepam* (Temazepam*) 15 Mg Capsule, 15 MG PO HS PRN for INSOMNIA for 1 Day, #1 CAP Prov:RAMIRO MORRIS MD 04/19/17 Allergies Allergies: Coded Allergies: No Known Allergy (Unverified , 12/19/18) PMhx/Soc History of Surgery: Yes (Hysterectomy, Thyroidectomy, ) Anesthesia Reaction: No Hx Neurological Disorder: No Hx Respiratory Disorders: Yes (Asthma) Hx Cardiac Disorders: Yes (HTN, CHF ) Hx Psychiatric Problems: No Hx Miscellaneous Medical Probl: No Hx Alcohol Use: No Hx Substance Use: No Hx Tobacco Use: Yes Physical Exam Vitals Vital Signs Date Temp Pulse Resp B/P (MAP) Pulse Ox O2 O2 Flow FiO2 Time Delivery Rate 09/09/18 116 18 133/87 100 Nasal 2.0 18:00 (102) Cannula 09/09/18 115 18 140/92 96 Nasal 2.0 15:36 (108) Cannula 09/09/18 2.0 15:32 09/09/18 116 20 96 Nasal 2.0 15:32 Cannula 09/09/18 Nasal 2 15:20 Cannula 09/09/18 97.0 115 18 177/86 96 14:27 (116) Physical Exam Const: No acute distress. Head: Atraumatic. Eyes: Normal Conjunctiva. ENT: Normal External Ears, Nose and Mouth. Neck: Full range of motion. No meningismus. Resp: Bibasilar crackle, bilateral expiratory wheezes Cardio: Irregularly irregular Abd: Soft, non distended, normal bowel sounds, non tender. Skin: No petechiae or rashes. Back: No midline or flank tenderness. Ext: Chronic bilateral lower extremity edema, chronic right lower extremity wound Neur: Awake and alert. No focal deficit Psych: Normal Mood and Affect. Result Diagram: 09/09/18 1558 09/09/18 1558 Results 24 hrs Laboratory Tests Test 09/09/18 15:58 White Blood Count 5.2 10^3/ul Red Blood Count 4.91 10^6/ul Hemoglobin 11.4 g/dl Hematocrit 37.6 % Mean Corpuscular Volume 76.6 fl Mean Corpuscular Hemoglobin 23.2 pg Mean Corpuscular Hemoglobin Concent 30.3 g/dl Red Cell Distribution Width 18.2 % Platelet Count 154 10^3/UL Mean Platelet Volume 11.3 fl Immature Granulocytes % 0.200 % Neutrophils % 63.4 % Lymphocytes % 22.5 % Monocytes % 11.6 % Eosinophils % 1.9 % Basophils % 0.4 % Nucleated Red Blood Cells % 0.0 /100WBC Immature Granulocytes # 0.010 10^3/ul Neutrophils # 3.3 10^3/ul Lymphocytes # 1.2 10^3/ul Monocytes # 0.6 10^3/ul Eosinophils # 0.1 10^3/ul Basophils # 0.0 10^3/ul Nucleated Red Blood Cells # 0.0 10^3/ul Prothrombin Time 17.4 Sec Prothrombin Time Ratio 1.4 INR International Normalized Ratio 1.40 Activated Partial Thromboplast Time 31.9 Sec Sodium Level 143 mmol/L Potassium Level 4.4 mmol/L Chloride Level 110 mmol/L Carbon Dioxide Level 24 mmol/L Anion Gap 9 Blood Urea Nitrogen 16 mg/dl Creatinine 1.08 mg/dl Est Glomerular Filtrat Rate mL/min mL/min Glucose Level 119 mg/dl Calcium Level 9.7 mg/dl Troponin I 0.019 ng/ml B-Type Natriuretic Peptide 8190 PG/ML Current Medications Medications Dose Sig/Srinivas Start Time Status Last (Trade) Ordered Route PRN Stop Time Admin Dose Reason Admin Ipratropium 0.5 mg ONCE STAT 09/09/18 DC 09/09/18 [place] NEB 15:20 15:30 (Atrovent 09/09/18 0.02% 15:21 (Neb)) 1.25 mg ONCE STAT 09/09/18 DC 09/09/18 Levalbuterol INH 15:20 15:30 (Xopenex 09/09/18 Neb) 15:21 Furosemide 40 mg ONCE ONCE 09/09/18 DC 09/09/18 (Lasix) IV 18:00 17:48 09/09/18 18:01 IV Flush 3 ml PER 09/09/18 UNV (NS 3 ml) PROTOCOL IV 19:00 Ondansetron 4 mg Q6H PRN 09/09/18 UNV HCl (Zofran IV NAUSEA 19:00 Inj) AND/OR VOMITING 650 mg Q6H PRN 09/09/18 UNV Acetaminophen PO PAIN 19:00 (Tylenol LEVEL 1-3 OR Tab) FEVER 1 tab Q6H PRN 09/09/18 UNV Acetaminophen PO MODERATE 19:00 / PAIN LEVEL Hydrocodone 4-6 Bitart ([place] (5/325)) Morphine 2 mg Q4H PRN 09/09/18 UNV Sulfate IV SEVERE 19:00 (morphine) PAIN LEVEL 7-10 Docusate 100 mg Q12H PRN 09/09/18 UNV Sodium PO 19:00 (Colace) CONSTIPATION Zolpidem 5 mg QHS PRN 09/09/18 UNV Tartrate PO SLEEP 19:00 (Ambien) Enoxaparin 30 mg DAILY SC 09/10/18 UNV Sodium 09:00 (Lovenox) Apixaban 2.5 mg BID PO 09/09/18 UNV (Eliquis) 21:00 Aspirin 81 mg DAILY PO 09/10/18 UNV (Aspirin) 09:00 1 applic BID TOP 09/09/18 UNV Clotrimazole 21:00 (Lotrimin Cr) Digoxin 0.125 mg DAILY@13 09/10/18 UNV (Digoxin) PO 13:00 Diltiazem 120 mg BID PO 09/09/18 UNV HCl 21:00 (Cardizem Cd) 1 inh DAILY INH 09/10/18 UNV Fluticasone/ 09:00 Vilanterol (Breo Ellipta 100-25 Mcg Inh) Hydralazine 50 mg Q8 PO 09/09/18 UNV HCl 22:00 (Apresoline) Insulin 6 unit WITH 09/10/18 UNV Aspart BREAKFAST 08:00 (Novolog SC Insulin Pen) Insulin 10 unit WITH 09/10/18 UNV Aspart DINNER SC 18:00 (Novolog Insulin Pen) Insulin 10 unit WITH LUNCH 09/10/18 UNV Aspart SC 12:00 (Novolog Insulin Pen) Insulin 5 unit DAILY SC 09/10/18 UNV Glargine 09:00 (Lantus) Linagliptin 5 mg DAILY PO 09/10/18 UNV (Tradjenta) 09:00 Metoprolol 75 mg BID PO 09/09/18 UNV Tartrate 21:00 (Lopressor) Tiotropium 1 inh DAILY INH 09/10/18 UNV [place] 09:00 (Spiriva) 0.52 gm DAILY PO 09/10/18 UNV Miscellaneous 09:00 Information Albuterol/ 3 ml Q4H RESP 09/09/18 UNV Ipratropium THERAPY PRN 19:00 (Duoneb) HHN SHORTNESS OF BREATH Discontinue ONCE ONCE 09/09/18 UNV Miscellaneous current oral XX 19:00 sulfonylur... 09/09/18 Information 19:01 (* Miscellaneous Pharmacy Order) Diagnostic 1 ea 02 XX 09/10/18 UNV Test (Pha) 02:00 (Accu-Chek) ONCE ONCE 09/09/18 UNV Miscellaneous HYPOGLYCEMIA XX 19:00 PROTOCOL 09/09/18 Information w... 19:01 (* Miscellaneous Pharmacy Order) Insulin NOVOLOG WITH MEALS 09/09/18 UNV Aspart *MILD* BEDTIME SC 21:00 (Novolog ALGORITHM Insulin Pen) Furosemide 40 mg BID 09/10/18 UNV (Lasix) DIURETICS 06:00 IV Procedures/MDM [place] [id number] Radiology Main Line: [phone] DIAGNOSTIC IMAGING REPORT Patient: MICHELE LEARY : 1935 Age: 83 Sex: F MR #: [id number] DOS: 09/09/18 1520 Ordering MD: MT ALVARES MD Location: E/R Room/Bed: PROCEDURE: XR Chest. CLINICAL INDICATION: Shortness of breath . TECHNIQUE: Single frontal chest x-ray. COMPARISON: DR FLEMING 08/04/2018 FINDINGS: The lungs are clear of acute infiltrates, edema, effusions, or masses. There is mild bibasilar atelectasis. Cardiomegaly with calcific atherosclerosis of the aorta is present.. The cardiomediastinal silhouette is unremarkable. The osseous structures are intact. IMPRESSION: Cardiomegaly with mild bibasilar atelectasis.. RPTAT: GG .Prem Barrett MD, Date Time Electronically viewed and signed by .Prem Barrett MD, MD on 09/09/2018 16:16 .L/ CC: MT ALVARES MD [phone] [place] [id number] Radiology Main Line: [phone] DIAGNOSTIC IMAGING REPORT Patient: MICHELE LEARY : 1935 Age: 83 Sex: F MR #: [id number] DOS: 09/09/18 0000 Ordering MD: MT ALVARES MD Location: E/R Room/Bed: PROCEDURE: US Lower extremity Venous. CLINICAL INDICATION: Bilateral lower extremity edema TECHNIQUE: Multiple sonographic images of the bilateral lower extremity deep venous system was obtained utilizing grayscale, color-flow, compressive sonography and doppler imaging with augmentation. The images were reviewed on a PACS workstation. COMPARISON: 03/16/2015 FINDINGS: There is normal compressibility and flow within the bilateral common femoral, fe moral, calf, and popliteal veins. IMPRESSION: No sonographic evidence for deep venous thrombosis. RPTAT: PP Physician Kaye Date Time Electronically viewed and signed by Damon Ashley Physician on 09/09/2018 17:10 ME/ CC: MT ALVARES MD [id number] EKG: Read by emergency physician Rate/Rhythm: Atrial fibrillation 110 beats/min QRS, ST, T-waves: No ST elevation, no T inversion, LAD, IRBBB, septal Q's Impression: Abnormal EKG MEDICAL MAKING DECISION: The patient is a 83-year-old female, presenting with acute CHF exacerbation. She was treated with Lasix 40 mg IV for acute CHF exacerbation, Atrovent 0.5 mg and Xopenex 1.25mg acute wheezing with good response The differential diagnoses considered include but are not limited to asthma, COPD, pneumonia, pulmonary embolus, pleural effusion, congestive heart failure. Critical Care: Time: 35 minutes excluding all billable procedures. Treatments/Evaluations: Close monitoring and treatment of unstable vital signs, cardiorespiratory, and neurologic status, while maintaining tight balance of fluid, respiratory, and cardiac interventions. Departure Diagnosis: Primary Impression: CHF (congestive heart failure) Additional Impression: Anemia Condition: Stable Comments I discussed the findings with the patient. I discussed the patient with the hospitalist Dr. Segura at 5:40 pm who was made aware of the lab, the treatment, the patient condition. The patient is admitted to Tel Disclaimer: Inadvertent spelling and grammatical errors are likely due to EHR/dictation software use and do not reflect on the overall quality of patient care. Also, please note that the electronic time recorded on this note does not necessarily reflect the actual time of the patient encounter. MT ALVARES MD Sep 09, 2018 15:15
[2018-09-09] MEDS ORDERED: LEVALBUTEROL (NEB) 1.25 MG/0.5 ML AMP INH STA (15:20)
[2018-09-09] MEDS ORDERED: IPRATROPIUM (NEB) 0.5 MG/2.5 ML AMP NEB STA (15:20)
[2018-09-09] MEDS ORDERED: FUROSEMIDE 40 MG INJ IV ONE (18:00)
--- NOTE | 2018-09-09 18:31 | HP ---
Date/Time of Note Date/Time of Note DATE: 09/09/18 TIME: 18:25 Assessment/Plan VTE Prophylaxis Pharmacological prophylaxis: LMWH Lines/Catheters IV [facility] Saline Lock Assessment/Plan Hospital Course 1. Acute on chronic systolic and diastolic heart failure Patient with elevated BNP and lower extremity swelling Lasix IV 2. Diabetes Continue home meds 3. Hypertension Continue home meds 4. CKD No acute issues 5. Moderate to severe aortic stenosis Outpatient follow-up Prophylaxis: Lovenox HPI/ROS Admit Date/Time Admit Date/Time September 09, 2018 Hx of Present Illness Patient is an 83-year-old female with a history of combined diastolic and systolic heart failure with moderate to severe aortic stenosis, paroxysmal A. fib, right lower extremity blister, diabetes, hypertension, obesity, CKD, PE. Patient presents with worsening lower extremity swelling and mild shortness of breath over the past several days. In the ER patient's BNP was elevated, ultra sound was negative for DVT. Of note patient does normally ambulates with a walker at home but has been having difficulty doing so due to her lower extremity swelling. ROS Constitutional: no complaints, improved Eyes: no complaints ENT: no complaints Respiratory: no complaints Cardiovascular: no complaints Gastrointestinal: no complaints Genitourinary: no complaints Musculoskeletal: no complaints Skin: no complaints Neurologic: no complaints Endocrine: no complaints Lymphatic: lymphadema Psychological: no complaints, nl mood/affect Immunologic: no complaints PMH/Family/Social Past Medical History As per HPI Coded Allergies: No Known Allergy (Unverified , 09/09/18) Past Surgical History Past Surgical Hx: other Family History Significant Family History: no pertinent family hx Social History Alcohol Use: rarely Smoking Status: Former smoker Drug Use: none Exam/Review of Systems Vital Signs Vitals Vital Signs Date Temp Pulse Resp B/P (MAP) Pulse Ox O2 O2 Flow FiO2 Time Delivery Rate 09/09/18 116 18 133/87 100 Nasal 2.0 18:00 (102) Cannula 09/09/18 97.0 14:27 Exam Constitutional: alert, oriented Respiratory: clear to auscultation Cardiovascular: regular rate and rhythm Gastrointestinal: soft; No distended Extremities: edema Results Result Diagram: 09/09/18 1558 09/09/18 1558 Results 24 hrs Laboratory Tests Test 09/09/18 15:58 White Blood Count 5.2 Red Blood Count 4.91 Hemoglobin 11.4 L Hematocrit 37.6 Mean Corpuscular Volume 76.6 L Mean Corpuscular Hemoglobin 23.2 L Mean Corpuscular Hemoglobin Concent 30.3 L Red Cell Distribution Width 18.2 H Platelet Count 154 # Mean Platelet Volume 11.3 H Immature Granulocytes % 0.200 Neutrophils % 63.4 Lymphocytes % 22.5 Monocytes % 11.6 H Eosinophils % 1.9 Basophils % 0.4 Nucleated Red Blood Cells % 0.0 Immature Granulocytes # 0.010 Neutrophils # 3.3 Lymphocytes # 1.2 Monocytes # 0.6 Eosinophils # 0.1 Basophils # 0.0 Nucleated Red Blood Cells # 0.0 Prothrombin Time 17.4 H Prothrombin Time Ratio 1.4 INR International Normalized Ratio 1.40 Activated Partial Thromboplast Time 31.9 Sodium Level 143 Potassium Level 4.4 Chloride Level 110 Carbon Dioxide Level 24 Anion Gap 9 Blood Urea Nitrogen 16 Creatinine 1.08 H Est Glomerular Filtrat Rate mL/min Glucose Level 119 Calcium Level 9.7 Troponin I 0.019 B-Type Natriuretic Peptide 8190 H JABIER SEBASTIAN Sep 09, 2018 18:31
[2018-09-09] MEDS ORDERED: GLUCOSE GEL 15 GRAM TUBE BUCCAL PRN (19:00)
[2018-09-09] MEDS ORDERED: ZOLPIDEM 5 MG TAB PO PRN (19:00)
[2018-09-09] MEDS ORDERED: morphine 2 MG INJ IV PRN (19:00)
[2018-09-09] MEDS ORDERED: DEXTROSE 50% 50 ML SYRINGE IV PRN ×2 (19:00)
[2018-09-09] MEDS ORDERED: GLUCOSE GEL 15 GRAM TUBE PO PRN ×2 (19:00)
[2018-09-09] MEDS ORDERED: GLUCAGON 1 MG INJ IM PRN (19:00)
[2018-09-09] MEDS ORDERED: NACL 0.9% 3 ML SYG IV SCH (19:00)
[2018-09-09] MEDS ORDERED: DOCUSATE SODIUM 100 MG CAP PO PRN (19:00)
[2018-09-09] MEDS ORDERED: ONDANSETRON 4 MG INJ IV PRN (19:00)
[2018-09-09] MEDS: APIXABAN 5 MG TABLET PO SCH (20:27)
[2018-09-09] MEDS: CLOTRIMAZOLE 1% 30 GM CR TOP SCH (21:00)
[2018-09-09] MEDS: DILTIAZEM (CD) 120 MG CAP PO SCH (21:00)
[2018-09-09 21:45] VITALS: PULSE 112
[2018-09-09 22:10] VITALS: BP 138/70; PULSE 109; RESP 19
[2018-09-09 22:30] VITALS: Ht 162.6 cm; Wt 96.7 kg
[2018-09-09] MEDS: INSULIN ASPART [NOVOLOG] 3 ML PEN SC SCH (23:14)
[2018-09-09] MEDS: METOPROLOL 25 MG TAB PO SCH (23:15)
[2018-09-10] VITALS (12 sets, daily range): BP systolic 104–140; BP diastolic 55–76; PULSE 78–120; RESP 16–21
[2018-09-10] MEDS: ALBUTEROL/IPRATROPIUM (NEB) 3 ML AMP HHN PRN ×2 (01:44→10:12)
[2018-09-10] MEDS: ACCU-CHEK XX SCH (02:00)
[2018-09-10] MEDS: FUROSEMIDE 40 MG INJ IV SCH ×2 (06:43→17:29)
[2018-09-10] MEDS ORDERED: PENDING SANTYL ORDER FOR WOUND CARE XX PRN (08:00)
[2018-09-10] MEDS ORDERED: INSULIN GLARGINE [LANtus] 3 ML PEN SC SCH (09:00)
[2018-09-10] MEDS ORDERED: ENOXAPARIN 30 MG/0.3 ML SYG SC SCH (09:00)
[2018-09-10] MEDS: APIXABAN 5 MG TABLET PO SCH ×2 (09:25→20:45)
[2018-09-10] MEDS: PSYLLIUM 28% PACKET PO SCH (09:30)
[2018-09-10] MEDS: DILTIAZEM (CD) 120 MG CAP PO SCH ×2 (09:30→20:41)
[2018-09-10] MEDS: LINAGLIPTIN 5 MG TABLET PO SCH (09:30)
[2018-09-10] MEDS: ASPIRIN 81 MG TAB PO SCH (09:30)
[2018-09-10] MEDS: CLOTRIMAZOLE 1% 30 GM CR TOP SCH ×2 (09:31→21:00)
[2018-09-10] MEDS: TIOTROPIUM 18 MCG CAPSULE INHA DEV INH SCH ×2 (09:37→10:04)
[2018-09-10] MEDS: FLUTICASONE/VILANTEROL 100-25 INH SCH ×2 (09:37→10:04)
--- NOTE | 2018-09-10 10:00 | NUR ---
RN UPDATE ADMINISTERED NOVOLOG AT THIS TIME. CALLED UP PHARMACY 3X FOR FOLLOW UP BUT NOVOLOG WAS DELIVERED LATE. RECHECKED BS AT THIS TIME. BG- 151 MG/DL. AWAITING FOR LANTUS SCHEDULED AT 9AM. WILL CONTINUE TO MONITOR.
--- NOTE | 2018-09-10 10:02 | NUR ---
Wound Care Consult: Patient is an 83-year-old female with a history of combined diastolic and systolic heart failure with moderate to severe aortic stenosis, paroxysmal A. fib, right lower extremity blister, diabetes, hypertension, obesity, CKD, PE. Patient presents with worsening lower extremity swelling and mild shortness of breath over the past several days. In the ER patient's BNP was elevated, ultrasound was negative for DVT. Of note patient does normally ambulates with a walker at home but has been having difficulty doing so due to her lower extremity swelling. Wound care team consulted for wounds present on admission Sacrococcyx pressure ulcer stage 2 with incontinence associated skin damage. 1.5cm x 0.5cm x 0.05cm. linear shape Wound bed with noted partial thickness wound. wound edge intact. periwound with some redness from incontinence episodes. Denies pain, no odor noted at this time. Treatment recommendation include, cleanse with normal saline, pat dry, apply Venelex ointment and cover with foam border dressing BID and as needed. Right anterior open blister wounds, annular grouped vascular origin. 4cm x 2.5cm x 0.05cm (cumulative) Wound bed with red epithelializing wound bed, wound edge intact. Scan serosanguineous drainage noted. Periwound with noted dry intact skin. Denies pain, no odor. Treatment recommendation include, cleanse with normal saline, pat dry, apply Xeroform dressing covered with dry dressing and secured with kerilx roll and tape daily and as needed. Bilateral heels intact with dark pigmentation noted. Keep skin intact and clean. Encourage patient to turn every 2 hours per department protocol Elevate heels with pillows to offload and promote circulation Repost skin changes to PMD and WOCN as needed WOCN spoke with Dr. Colton MD regarding vascular and podiatry consult, verbalized patient was referred prior to this admission by PMD but did not follow through, verbalized he will talk to patient for disposition plan. MAGGIE discussed assessment and treatment recommendation with denise Hightower RN. Darien Mesa RN MSN MAGGIE CM
[2018-09-10] MEDS: INSULIN ASPART [NOVOLOG] 3 ML PEN SC SCH ×7 (10:07→20:49)
[2018-09-10] MEDS: METOPROLOL 25 MG TAB PO SCH ×2 (12:33→20:42)
[2018-09-10] MEDS: DIGOXIN 0.125 MG TAB PO SCH (13:03)
--- NOTE | 2018-09-10 14:52 | PN ---
Date/Time of Note Date/Time of Note DATE: 09/10/18 TIME: 14:50 Assessment/Plan VTE Prophylaxis Pharmacological prophylaxis: apixaban Lines/Catheters IV [facility] Saline Lock Assessment/Plan Hospital Course 1. Acute on chronic systolic and diastolic heart failure Patient with elevated BNP and lower extremity swelling Lasix IV 2. Chronic right knee wound Podiatry consultation obtained 3. Diabetes Continue home meds 4. Hypertension Continue home meds 5. CKD No acute issues 6. Moderate to severe aortic stenosis Outpatient follow-up 7. History of PE Continue Eliquis Prophylaxis: Eliquis Subjective 24 Hr Interval Summary Constitutional: no complaints Exam/Review of Systems Vital Signs Vitals Vital Signs Date Temp Pulse Resp B/P (MAP) Pulse Ox O2 O2 Flow FiO2 Time Delivery Rate 09/10/18 92 12:20 09/10/18 98.6 16 111/55 100 Nasal 11:32 (73) Cannula 09/10/18 3.0 10:12 Intake and Output 09/09/18 09/09/18 09/10/18 1515:00 23:00 07:00 IntakeIntake Total 350 ml BalanceBalance 350 ml Exam Constitutional: alert Respiratory: clear to auscultation Cardiovascular: regular rate and rhythm Gastrointestinal: soft; No distended Musculoskeletal: No nl extremities to inspection JABIER SEBASTIAN Sep 10, 2018 14:52
[2018-09-10] MEDS: INSULIN GLARGINE [LANTus] (100 UNITS/ML) SYG SC SCH (15:06)
--- NOTE | 2018-09-10 15:11 | NUR ---
PT EVALUATION , Therapy day number 1 Evaluation Start Time 14:15 Evaluation End Time 15:15 Evaluation Total Time 60 min Subjective Denies pain Pain Scale NUMERIC Pain Intensity 0 (0-10) Patient Stated Goal for Pain Relief 0 (0-10) Pain Level Comment N/A Pre Treatment Vital Signs Stable Yes - BP:104/58 HR:88 Exercise Assessment Label Bilat Lower Extremity Exercise Type Active Assist ROM Additional Exercise Comments AP, KNEE FLEX, EXT, SAQ , LAQ. Supine to Sit Moderate Assist Transfer Sit to Stand Ability Moderate Assist Bed Mobility Sit to Supine Moderate Assist Bed Transfer Ability Moderate Assist Chair Transfer Ability Moderate Assist Sitting Tolerance 15 min Patient uses wheelchair Not Applicable Gait Assist Levels Moderate Assist Assistive Devices Front Wheel Walker Additional Gait Comments 5 STEPS X3 Weight Bearing Assessment Label Bilat Lower Extremity Weight Bearing Status Full Weight Bearing Additional Stairs Assist Comments N/A Static Sitting Balance Good Dynamic Sitting Balance Good Standing Static Balance Fair plus Dynamic Standing Balance Fair minus Additional Balance Assessments Comments W/FWW Safety Judgement Fair Activity Tolerance Poor Additional Equipment Present O2 3ML/NC . Post Treatment Pain Intensity 0 0-10 Quality Indicators SOB Upon Exertion Variance Documentation P/S SEE PT NOTE . PT Technical Record Comment PT EVALUATION , S: RN CLEARED , PATIENT AGREEABLE . O: PATIENT IS A 83 Y/O FEMALE WITH PMH::MORBID OBESITY , MOD.SEVERE AORTIC STENOSIS , DM , HTN , A-FIB , CKD , ADMITTED TO [facility] DUE TO WORSENING LOWER EXTREMITY AND SWELLING AND SOB ( - ) DVT.PATIENT SEEN IN BED .INSTRUCTED HER IN SAFETY FALL PRECAUTION AND A/ROM BLE'S ., P/S SEE PT TECHNICAL RECORD FOR PATIENT'S FUNCTIONAL STATUS , GAIT TR W/FWW PERFORMED 5 STEPS X3 WITH MOD A AND CONSTANT VC'S FOR SAFETY, FALL PRECAUTION , UPRIGHT POSTURE AND PROPER BREATHING TECHNICS , GAIT W/FWW UNSTEADY, UNSTABLE AND LIMTED DUE TO SEVERE GENERALIZED WEAKNESS WELL SOB WITH EXERTION , PATIENT RETURNED BACK TO BED WITH MIN/MOD A , VS STABLE TOLERATED TREATMENT FAIRLY , RN NOTIFIED PATIENT'S PARTICIPATION IN PT SESSION , PATIENT IS CLEARED TO GET OOB TO BED SIDE COMMODE . A: PATIENT LIVES WITH DAUGHTER IN A HOUSE WITH NO ENTRY STAIRS , PATIENT HAS BEEN FUNCTIONAL AND AMBULATORY ( HOUSEHOLD AMBULATOR ) W/FWW , PATIENT OWNS FWW , AND WOULD LIKE TO RETURN HOME ONCE CLEARED BY MD , PT RECOMMEND PT FOLLOW UP . P" PT DAILY X5 ( THERA EXE'S BLE'S , TRANSFER TR,GAIT TR W/FWW TO [facility] WITH 02, PATIENT EDUCATION , TRAINING .
--- NOTE | 2018-09-10 16:07 | NUR ---
Nutrition Consult Consult regarding pressure injury was ordered. Recommend vitamin C 500mg daily X 14days, zinc 220mg daily X 7days, and MVI daily. Will be sending Sarthak BID. Thank you1
[2018-09-10] MEDS ORDERED: morphine LIQ (10 MG/5 ML) CUP PO PRN (23:00)
[2018-09-11] VITALS (11 sets, daily range): BP systolic 101–135; BP diastolic 59–69; PULSE 63–92; RESP 20–24
[2018-09-11] MEDS: ACCU-CHEK XX SCH (01:33)
[2018-09-11] MEDS: FUROSEMIDE 40 MG INJ IV SCH ×2 (05:38→17:02)
--- NOTE | 2018-09-11 06:17 | NUR ---
END OF THE SHIFT;VERY PLEASANT AA,O X 3-4 LADY,COOPERATIVE.ON 2-3 L OF O2 VIA N/C TO KEEP SAT>92% PT. IS BRP WITH ASSIST(USES BEDSIDE COMMODE).BG LEVEL -WNL.NO DISTRESS/DISCOMFORT THROUGHOUT THE SHIFT.WILL CONTINUE TO MONITOR.
[2018-09-11] MEDS: INSULIN ASPART [NOVOLOG] 3 ML PEN SC SCH ×7 (08:04→20:17)
[2018-09-11] MEDS: ASPIRIN 81 MG TAB PO SCH (09:01)
[2018-09-11] MEDS: PSYLLIUM 28% PACKET PO SCH (09:01)
[2018-09-11] MEDS: CLOTRIMAZOLE 1% 30 GM CR TOP SCH ×3 (09:01→20:18)
[2018-09-11] MEDS: DILTIAZEM (CD) 120 MG CAP PO SCH ×2 (09:02→20:16)
[2018-09-11] MEDS: METOPROLOL 25 MG TAB PO SCH ×2 (09:02→20:17)
[2018-09-11] MEDS: APIXABAN 5 MG TABLET PO SCH ×2 (09:02→20:16)
[2018-09-11] MEDS: LINAGLIPTIN 5 MG TABLET PO SCH (09:03)
[2018-09-11] MEDS: TIOTROPIUM 18 MCG CAPSULE INHA DEV INH SCH (09:07)
[2018-09-11] MEDS: FLUTICASONE/VILANTEROL 100-25 INH SCH (09:08)
[2018-09-11] MEDS: INSULIN GLARGINE [LANTus] (100 UNITS/ML) SYG SC SCH (09:14)
--- NOTE | 2018-09-11 09:30 | NUR ---
PT NOTE: S: Angela MELO cleared patient for PT treatment, patient c/o pain bilateral knees R>L rated at 10/10, agreeable to participate with treatment. O: Received patient sitting at EOB with RN. Patient seen for transfer training from bed <-> bedside commode with CGA, no assistive device as patient had urgent need to use bedside commode. Transfer sit to stand with CGA and FWW. Gait training 5 ft x 2 with FWW and min assist, supplemental O2 @ 2 l/min via NC, one sitting rest. Patient becomes SOB with minimal exertion. Verbal cues for proper breathing techniques. Gait unsteady, required assist to manage FWW. Patient returned to bed with SBA, call light within reach, all needs met, bed alarm reset. VS as follows: initial BP 133/66, HR 76, O2 sat 95% on supplemental O2 @ 2 l/min via NC. After amb O2 sat 82%, recovered to 95% after 15 seconds while patient resting. RN notified of patient's status at the end of the session. A: Patient desaturates with minimal exertion, limited activity due to c/o SOB, fatigue and weakness. P: Continue with PT daily 5x for thrapeutic exercise BLEs, transfer training, gait training with FWW and supplemental O2, and patient education.
[2018-09-11] MEDS: DIGOXIN 0.125 MG TAB PO SCH (12:40)
--- NOTE | 2018-09-11 15:06 | CONS ---
Date/Time of Note Date/Time of Note DATE: 09/11/18 TIME: 15:04 Assessment/Plan Assessment/Plan Additional Assessment/Plan 1) RLE venous ulceration 2) Venous insufficiency 3) Lymphaedema 4) Tinea pedis 5) Onychomycosis 6) CHF 7) DM2 with peripheral neuropathy Plan: Consent was obtained and performed bedside excisional debridement of skin/subQ with pickup and scissors. Fibrotic tissue, biofilm, skin slough, and non-viable tissue was removed. Less than 10cm2 area of debridement. Recommend daily wound irrigation with dakins and dress with xeroform and dry sterile dressings. Recommend daily application of clotrimazole and lac-hydrin of bilateral lower extremities and dress with kerlix and kath compression wrap to assist with edema management. Non-invasive arterial studies ordered. Rest per primary team. Medical decisions, treatment, and plan coordinated with Dr. Barrios. Consultation Date/Type/Reason Admit Date/Time September 09, 2018 Hx of Present Illness 83 y/o diabetic female patient who presents to the floor with right lower extremity ulceration. Patient reports that couple days ago she noticed a large blister to her right leg area and it popped resulting with an ulceration. She was admitted for worsening lower extremity swelling and mild shortness of breath over the past several days. In the ER patient's BNP was elevated, ultrasound was negative for DVT. Of note patient does normally ambulates with a walker at home but has been having difficulty doing so due to her lower extremity swelling. 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 fib, right lower extremity blister, diabetes, hypertension, obesity, CKD, PE Medications Current Medications IV Flush (NS 3 ml) 3 ml PER PROTOCOL IV ; Start 09/09/18 at 19:00 Ondansetron HCl (Zofran Inj) 4 mg Q6H PRN IV NAUSEA AND/OR VOMITING; Start 09/09/18 at 19:00 Acetaminophen (Tylenol Tab) 650 mg Q6H PRN PO PAIN LEVEL 1-3 OR FEVER; Start 09/09/18 at 19:00 Acetaminophen/ Hydrocodone Bitart ([place] (5/325)) 1 tab Q6H PRN PO MODERATE PAIN LEVEL 4-6; Start 09/09/18 at 19:00 Docusate Sodium (Colace) 100 mg Q12H PRN PO CONSTIPATION; Start 09/09/18 at 19:00 Zolpidem Tartrate (Ambien) 5 mg QHS PRN PO SLEEP; Start 09/09/18 at 19:00 Apixaban (Eliquis) 2.5 mg BID PO Last administered on 09/11/18 09:02; Admin Dose 2.5 MG; Start 09/09/18 at 21:00 Aspirin (Aspirin) 81 mg DAILY PO Last administered on 09/11/18 09:01; Admin Dose 81 MG; Start 09/10/18 at 09:00 Clotrimazole (Lotrimin Cr) 1 applic BID TOP Last administered on 09/11/18 09:01; Admin Dose 1 APPLIC; Start 09/09/18 at 21:00 Digoxin (Digoxin) 0.125 mg DAILY@13 PO Last administered on 09/11/18at 12:40; Admin Dose 0.125 MG; Start 09/10/18 at 13:00 Diltiazem HCl (Cardizem Cd) 120 mg BID PO Last administered on 09/11/18 09:02; Admin Dose 120 MG; Start 09/09/18 at 21:00 Fluticasone/ Vilanterol (Breo Ellipta 100-25 Mcg Inh) 1 inh DAILY INH Last administered on 09/11/18at 09:08; Admin Dose 1 INH; Start 09/10/18 at 09:00 Hydralazine HCl (Apresoline) 50 mg Q8 PO Last administered on 09/11/18 05:38; Admin Dose 50 MG; Start 09/09/18 at 22:00 Insulin Aspart (Novolog Insulin Pen) 6 unit WITH BREAKFAST SC Last administered on 09/11/18at 08:04; Admin Dose 6 UNIT; Start 09/10/18 at 08:00 Insulin Aspart (Novolog Insulin Pen) 10 unit WITH DINNER SC Last administered on 09/10/18at 12:36; Admin Dose 10 UNIT; Start 09/10/18 at 18:00 Insulin Aspart (Novolog Insulin Pen) 10 unit WITH LUNCH SC Last administered on 09/11/18at 12:00; Admin Dose 10 UNIT; Start 09/10/18 at 12:00 Linagliptin (Tradjenta) 5 mg DAILY PO Last administered on 09/11/18at 09:03; Admin Dose 5 MG; Start 09/10/18 at 09:00 Metoprolol Tartrate (Lopressor) 75 mg BID PO Last administered on 09/11/18at 09:02; Admin Dose 75 MG; Start 09/09/18 at 21:00 Tiotropium [place] (Spiriva) 1 inh DAILY INH Last administered on 09/11/18at 09:07; Admin Dose 1 INH; Start 09/10/18 at 09:00 Psyllium Hydrophilic Mucilloid (Metamucil) 1 pkt DAILY PO Last administered on 09/11/18at 09:01; Admin Dose 1 PKT; Start 09/10/18 at 09:00 Albuterol/ Ipratropium (Duoneb) 3 ml Q4H RESP THERAPY PRN HHN SHORTNESS OF BREATH Last administered on 09/10/18at 10:12; Admin Dose 3 ML; Start 09/09/18 at 19:00 Diagnostic Test (Pha) (Accu-Chek) 1 ea 02 XX ; Start 09/10/18 at 02:00 Insulin Aspart (Novolog Insulin Pen) NOVOLOG *MILD* ALGORITHM WITH MEALS BEDTIME SC Last administered on 09/11/18at 12:00; Admin Dose 2 UNIT; Start 09/09/18 at 21:00 Furosemide (Lasix) 40 mg BID DIURETICS IV Last administered on 09/11/18at 05:38; Admin Dose 40 MG; Start 09/10/18 at 06:00 Miscellaneous Information 1 ea NOTE XX ; Start 09/09/18 at 19:00 Glucose (Glutose) 15 gm Q15M PRN PO DECREASED GLUCOSE; Start 09/09/18 at 19:00 Glucose (Glutose) 22.5 gm Q15M PRN PO DECREASED GLUCOSE; Start 09/09/18 at 19:00 Dextrose (D50w Syringe) 25 ml Q15M PRN IV DECREASED GLUCOSE; Start 09/09/18 at 19:00 Dextrose (D50w Syringe) 50 ml Q15M PRN IV DECREASED GLUCOSE; Start 09/09/18 at 19:00 Glucagon (Glucagen) 1 mg Q15M PRN IM DECREASED GLUCOSE; Start 09/09/18 at 19:00 Glucose (Glutose) 15 gm Q15M PRN BUCCAL DECREASED GLUCOSE; Start 09/09/18 at 19:00 Miscellaneous Information ([facility]) This patient valentino... PRN PRN XX wounds; Start 09/10/18 at 08:00 Insulin Glargine (Lantus) 5 units DAILY SC Last administered on 09/11/18at 09:14; Admin Dose 5 UNITS; Start 09/10/18 at 14:05 Morphine Sulfate (morphine) 6 mg Q4H PRN PO SEVERE PAIN LEVEL 7-10; Start 09/10/18 at 23:00 Allergies: Coded Allergies: No Known Allergy (Unverified , 09/09/18) Past Surgical History Past Surgical Hx: other Social History Alcohol Use: rarely Smoking Status: Former smoker Drug Use: none Exam/Review of Systems Vital Signs Vitals Vital Signs Date Temp Pulse Resp B/P (MAP) Pulse Ox O2 O2 Flow FiO2 Time Delivery Rate 09/11/18 67 12:00 09/11/18 98.0 20 101/59 98 Nasal 11:15 (73) Cannula 09/11/18 2.0 09:00 Intake and Output 09/10/18 09/10/18 09/11/18 1515:00 23:00 07:00 IntakeIntake Total 950 ml 500 ml OutputOutput Total 1040 ml 1500 ml BalanceBalance -90 ml -1000 ml Exam Unable to palpate pedal pulses 2+ pitting edema with cobblestone appearance to bilateral lower extremities Right lateral proximal leg ulcer mixed fibrogranular wound bed measuring 1.5 x 1.4 x 0.2cm. There is purulence noted, dry in appearance with surrounding skin slough. No probing to bone, no proximal streaking appreciated CFT less than 4 seconds to the digits Skin temperature gradient warm to warm from proximal leg to distal feet Mycotic thickened nails mocassin distribution white scaling lesions absent protective sensations to the feet. BASHIR JOHNSON DPM Sep 11, 2018 15:06
--- NOTE | 2018-09-11 15:11 | PN ---
Date/Time of Note Date/Time of Note DATE: 09/11/18 TIME: 15:09 Assessment/Plan VTE Prophylaxis Risk score (from Ns)>0 risk: 6 SCD applied (from Ns): Yes Pharmacological prophylaxis: apixaban Lines/Catheters IV Catheter Type (from Nrs): Saline Lock Urinary Cath still in place: No Assessment/Plan Hospital Course 1. Acute on chronic systolic and diastolic heart failure Patient with elevated BNP and lower extremity swelling Lasix IV 2. Chronic right knee wound Podiatry consultation appreciated 3. Diabetes Continue home meds 4. Hypertension Continue home meds 5. CKD No acute issues 6. Moderate to severe aortic stenosis Outpatient follow-up 7. History of PE Continue Eliquis 8. Delirium Reorient Avoid psychoactive medications Prophylaxis: Eliquis Subjective 24 Hr Interval Summary Constitutional: disoriented Exam/Review of Systems Vital Signs Vitals Vital Signs Date Temp Pulse Resp B/P (MAP) Pulse Ox O2 O2 Flow FiO2 Time Delivery Rate 09/11/18 67 12:00 09/11/18 98.0 20 101/59 98 Nasal 11:15 (73) Cannula 09/11/18 2.0 09:00 Intake and Output 09/10/18 09/10/18 09/11/18 1515:00 23:00 07:00 IntakeIntake Total 950 ml 500 ml OutputOutput Total 1040 ml 1500 ml BalanceBalance -90 ml -1000 ml Exam Psych: confusion Respiratory: clear to auscultation Cardiovascular: regular rate and rhythm Gastrointestinal: soft; No distended Musculoskeletal: No nl extremities to inspection JABIER SEBASTIAN Sep 11, 2018 15:11
[2018-09-11] MEDS: AMMONIUM LACTATE 12% 225 GM LOT TOP SCH (16:00)
[2018-09-11] MEDS: SODIUM HYPOCHLORITE (1/40) 1 APPLIC BTL IRR SCH (18:09)
--- NOTE | 2018-09-11 18:28 | NUR ---
EOSS SOB UPON EXERTION NOTED. VITAL SIGNS WNL. AFEBRILE. WOUND CARE TX DONE. WILL ENDORSE PATIENT TO THE NEXT SHIFT.
[2018-09-12] VITALS (12 sets, daily range): BP systolic 102–139; BP diastolic 50–68; PULSE 62–83; RESP 18–20
[2018-09-12] MEDS: ACCU-CHEK XX SCH (02:00)
[2018-09-12] MEDS: ACETAMINOPHEN 325 MG TAB PO PRN (05:27)
[2018-09-12] MEDS: FUROSEMIDE 40 MG INJ IV SCH ×2 (05:28→18:05)
--- NOTE | 2018-09-12 07:22 | NUR ---
End of shift notes: Vital signs remains stable;AFIB on the monitor. With c/o headache , med given and with relief. Still with SOB on activity. To continue to diurese. Endorsed to Johanne MELO.
[2018-09-12] MEDS: INSULIN ASPART [NOVOLOG] 3 ML PEN SC SCH ×7 (07:37→20:24)
[2018-09-12] MEDS: APIXABAN 5 MG TABLET PO SCH ×2 (08:10→20:20)
[2018-09-12] MEDS: ASPIRIN 81 MG TAB PO SCH (08:10)
[2018-09-12] MEDS: DILTIAZEM (CD) 120 MG CAP PO SCH ×2 (08:11→20:20)
[2018-09-12] MEDS: LINAGLIPTIN 5 MG TABLET PO SCH (08:12)
[2018-09-12] MEDS: CLOTRIMAZOLE 1% 30 GM CR TOP SCH ×4 (08:12→20:25)
[2018-09-12] MEDS: METOPROLOL 25 MG TAB PO SCH ×2 (08:12→20:22)
[2018-09-12] MEDS: PSYLLIUM 28% PACKET PO SCH (08:12)
[2018-09-12] MEDS: FLUTICASONE/VILANTEROL 100-25 INH SCH (08:13)
[2018-09-12] MEDS: TIOTROPIUM 18 MCG CAPSULE INHA DEV INH SCH (08:13)
[2018-09-12] MEDS: AMMONIUM LACTATE 12% 225 GM LOT TOP SCH (08:14)
[2018-09-12] MEDS: SODIUM HYPOCHLORITE (1/40) 1 APPLIC BTL IRR SCH (08:14)
[2018-09-12] MEDS: INSULIN GLARGINE [LANTus] (100 UNITS/ML) SYG SC SCH (08:27)
[2018-09-12] MEDS: DIGOXIN 0.125 MG TAB PO SCH (13:14)
--- NOTE | 2018-09-12 15:24 | PN ---
Date/Time of Note Date/Time of Note DATE: 09/12/18 TIME: 15:23 Assessment/Plan VTE Prophylaxis Risk score (from Nsg)>0 risk: 6 SCD applied (from Nsg): Yes Pharmacological prophylaxis: other Lines/Catheters IV Catheter Type (from Nrsg): Saline Lock Urinary Cath still in place: No Assessment/Plan Hospital Course 1. Acute on chronic systolic and diastolic heart failure Patient with elevated BNP and lower extremity swelling Lasix IV Patient continues to require supplemental oxygen, case checker to arrange for home O2 2. Chronic right knee wound Podiatry consultation appreciated, patient is status post debridement 3. Diabetes Continue home meds 4. Hypertension Continue home meds 5. CKD No acute issues 6. Moderate to severe aortic stenosis Outpatient follow-up 7. History of PE Continue Eliquis 8. Delirium Reorient Avoid psychoactive medications Prophylaxis: Eliquis DC planning: Possible DC home tomorrow Subjective 24 Hr Interval Summary Constitutional: disoriented Exam/Review of Systems Vital Signs Vitals Vital Signs Date Temp Pulse Resp B/P (MAP) Pulse Ox O2 O2 Flow FiO2 Time Delivery Rate 09/12/18 65 12:00 09/12/18 98.3 20 106/54 100 11:10 (71) 09/12/18 Nasal 2.0 07:57 Cannula Intake and Output 09/11/18 09/11/18 09/12/18 1515:00 23:00 07:00 IntakeIntake Total 840 ml 300 ml OutputOutput Total 700 ml BalanceBalance 140 ml 300 ml Exam Psych: confusion Respiratory: clear to auscultation Cardiovascular: regular rate and rhythm Gastrointestinal: soft; No distended Musculoskeletal: No nl extremities to inspection JABIER SEBASTIAN Sep 12, 2018 15:24
[2018-09-13] VITALS (13 sets, daily range): BP systolic 97–148; BP diastolic 47–76; PULSE 62–98; RESP 18–20
[2018-09-13] MEDS: ACCU-CHEK XX SCH (02:00)
[2018-09-13] MEDS: FUROSEMIDE 40 MG INJ IV SCH (05:50)
--- NOTE | 2018-09-13 06:33 | NUR ---
EOSS; PT NON COMPLIANT WITH INSTRUCTIONS AT TIMES. REINSTRUCTED RE ORDER FOR STRICT INTAKE AND OUTPUT.HL TO LEFT WRIST PULLED OUT TRIED TO RE START BUT PT REFUSED FURTHER IV WANTS LASIX CHANGE TO PO WILL LEAVE MESSAGE TO DR. REYES. DRESSING TO BILAT LE DONE.PT KEPT ASKING FOR FOOD INSTRUCTED HER RE DIET ORDERED. TELE RHYTHM REMAINED A FIB 64. WILL CONTINUE TO MONITOR PT.
[2018-09-13] MEDS: INSULIN ASPART [NOVOLOG] 3 ML PEN SC SCH ×7 (07:48→21:02)
[2018-09-13] MEDS: LINAGLIPTIN 5 MG TABLET PO SCH (08:50)
[2018-09-13] MEDS: DILTIAZEM (CD) 120 MG CAP PO SCH ×2 (08:50→20:52)
[2018-09-13] MEDS: ASPIRIN 81 MG TAB PO SCH (08:50)
[2018-09-13] MEDS: METOPROLOL 25 MG TAB PO SCH ×2 (08:50→20:53)
[2018-09-13] MEDS: FLUTICASONE/VILANTEROL 100-25 INH SCH (08:51)
[2018-09-13] MEDS: SODIUM HYPOCHLORITE (1/40) 1 APPLIC BTL IRR SCH (08:51)
[2018-09-13] MEDS: APIXABAN 5 MG TABLET PO SCH ×2 (08:51→20:46)
[2018-09-13] MEDS: PSYLLIUM 28% PACKET PO SCH (08:51)
[2018-09-13] MEDS: AMMONIUM LACTATE 12% 225 GM LOT TOP SCH (08:52)
[2018-09-13] MEDS: CLOTRIMAZOLE 1% 30 GM CR TOP SCH ×4 (08:52→20:54)
[2018-09-13] MEDS: INSULIN GLARGINE [LANTus] (100 UNITS/ML) SYG SC SCH (09:13)
[2018-09-13] MEDS: TIOTROPIUM 18 MCG CAPSULE INHA DEV INH SCH (09:29)
--- NOTE | 2018-09-13 10:14 | CONS ---
DATE OF ADMISSION: 09/09/2018 DATE OF CONSULTATION: REASON FOR CONSULTATION: Peripheral vascular disease. HISTORY OF PRESENT ILLNESS: This is an 83-year-old female with a history of chronic kidney disease, hypertension, diabetes, admitted because of bilateral leg ulceration. The patient is currently being treated with local wound care, antibiotics and will be having a debridement. PAST MEDICAL HISTORY: Significant for hypertension, hyperlipidemia, chronic kidney disease, diabetes . ALLERGIES: NONE. SOCIAL HISTORY: No smoking, drinking or drug use. PAST SURGICAL HISTORY: None. REVIEW OF SYSTEMS RESPIRATORY: No complaint. CARDIOVASCULAR: Positive for aortic stenosis. GASTROINTESTINAL: No upper or lower GI bleeding, nausea, vomiting. GENITOURINARY: No incontinence. NEUROLOGICAL: No CVA, TIA. ENDOCRINE: Positive for diabetes. SOCIAL HISTORY: No smoking, drinking or drug use. MEDICATIONS: List reviewed. PHYSICAL EXAMINATION: VITAL SIGNS: Blood pressure is 102/50, pulse is 62, respirations 20, saturations 100%, temperature i s 98.3. HEENT: Normocephalic, atraumatic. PERRLA. NECK: Supple. No JVD, no carotid bruits. CARDIOVASCULAR: Regular rate and rhythm. LUNGS: Lungs are clear. ABDOMEN: Soft. EXTREMITIES: Bilateral lower extremity wounds noted which involve legs bilaterally. There is 2+ pit ting edema. The right lateral aspect of the leg posteriorly has multiple wounds. The legs are warm to touch; however, the skin appears to be very thick and we are unable to palpate any pulses. Patient has had arterial duplex which shows monophasic waveform and bilateral posterior tibial arteri es with artery with significant bilateral infrapopliteal stenosis. The patient has normal bilat eral ABIs. LABORATORY VALUES: Significant for hemoglobin 10.2, normal coagulation factors and a creatinine of 1 .45. IMPRESSION: Peripheral vascular disease with leg ulcers. Arterial duplex is indicative of periphera l arterial disease. RECOMMENDATIONS: Patient will need an angiogram; however, this could be done after a consultation [facility] nephrology and stabilization of the renal function. Will discuss with the referring physicians. Dictated By: RODERICK CURIEL MD FM/NTS Conf#: [id number] DID#: [id number] CC: JABIER SEBASTIAN MD; Lul Araujo;*EndCC*
--- NOTE | 2018-09-13 10:37 | PN ---
Date/Time of Note Date/Time of Note DATE: 09/13/18 TIME: 10:21 Assessment/Plan VTE Prophylaxis Risk score (from Nsg)>0 risk: 6 SCD applied (from Nsg): Yes Pharmacological prophylaxis: other Lines/Catheters IV Catheter Type (from Nrsg): Saline Lock Urinary Cath still in place: No Assessment/Plan Hospital Course 1. Acute on chronic systolic and diastolic heart failure Patient with elevated BNP and lower extremity swelling Continue Lasix IV but have change frequency to daily secondary to acute kidney injury Patient continues to require supplemental oxygen 2. 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 Peripheral arterial disease Peripheral arterial studies are consistent with peripheral arterial disease Vascular surgery consultation appreciated, patient will need an angiogram but will hold off for now secondary to acute kidney injury 4. Acute kidney injury on CKD likely secondary to diuresis Nephrology consultation obtained Change Lasix 40 mg IV from twice daily to daily 5. Debility with delirium Reorient social science manager to arrange for snf placement Avoid psychoactive medications 6. Diabetes Continue home meds 7. Hypertension Continue home meds 8. Moderate to severe aortic stenosis Outpatient follow-up 9. History of PE Continue Eliquis Prophylaxis: Eliquis DC planning: Patient not stable for DC, monitor renal function, follow-up with vascular surgery recommendations, patient will ultimately need snf placement secondary to debility Subjective 24 Hr Interval Summary Constitutional: disoriented Exam/Review of Systems Vital Signs Vitals Vital Signs Date Temp Pulse Resp B/P (MAP) Pulse Ox O2 O2 Flow FiO2 Time Delivery Rate 09/13/18 71 08:00 09/13/18 Nasal 2.0 08:00 Cannula 09/13/18 97.8 18 148/76 98 07:54 (100) Intake and Output 09/12/18 09/12/18 09/13/18 1414:59 22:59 06:59 IntakeIntake Total 450 ml 450 ml OutputOutput Total 800 ml BalanceBalance 450 ml -350 ml Exam Psych: confusion Respiratory: clear to auscultation Cardiovascular: regular rate and rhythm Gastrointestinal: soft; No distended Musculoskeletal: No nl extremities to inspection JABIER SEBASTIAN Sep 13, 2018 10:32
--- NOTE | 2018-09-13 12:03 | NUR ---
Discharge planning; Received new order for detention facility placement and discussed matter with Patient, at this time concurs with plan for continued recovery. Also attempted to reach out to family, no answer but able to leave a message. Initiated SNF inquiry and faxed to following contracted facilities per Patient's insurance; [facility] , faxed to ; [facility] , faxed to ; [facility] , faxed to ; [facility] , faxed to ; [facility] faxed to ; [facility] , faxed to ; [facility] , faxed to ; [facility] , faxed to ; will await for their call back once they have reviewed case.
[2018-09-13] MEDS: DIGOXIN 0.125 MG TAB PO SCH (13:20)
--- NOTE | 2018-09-13 14:41 | PN ---
Date/Time of Note Date/Time of Note DATE: 09/13/18 TIME: 14:41 Assessment/Plan Lines/Catheters IV Catheter Type (from Nrsg): Saline Lock [place] in Place (from Nrsg): No Assessment/Plan Assessment/Plan IMPRESSION: Peripheral vascular disease with leg ulcers. Arterial duplex is indicative of peripheral arterial disease. Ct 1.6 RECOMMENDATIONS: Patient will need an angiogram; however, this could be done after a consultation with nephrology and stabilization of the renal function. Will discuss with the referring physicians. Subjective 24 Hr Interval Summary Constitutional: improved Pain Control: mild Exam/Review of Systems Vital Signs Vitals Vital Signs Date Temp Pulse Resp B/P (MAP) Pulse Ox O2 O2 Flow FiO2 Time Delivery Rate 09/13/18 66 12:00 09/13/18 97.3 19 110/52 97 Room Air 11:42 (71) 09/13/18 2.0 08:00 Intake and Output 09/12/18 09/12/18 09/13/18 1515:00 23:00 07:00 IntakeIntake Total 450 ml 450 ml OutputOutput Total 800 ml BalanceBalance 450 ml -350 ml Exam Eyes: nl conjunctiva, EOMI, nl lids, nl sclera ENMT: nl external ears & nose, nl lips & teeth, nl nasal mucosa & septum, mucosa pink and moist Neck: supple, non-tender Respiratory: clear to auscultation, normal air movement Cardiovascular: regular rate and rhythm, nl pulses Gastrointestinal: soft, nl liver, spleen, non-tender Results Result Diagram: 09/12/18 0513 09/13/18 [id number] RODERICK CURIEL MD Sep 13, 2018 14:41
--- NOTE | 2018-09-13 17:17 | CONS ---
DATE OF ADMISSION: 09/09/2018 DATE OF CONSULTATION: 09/13/2018 TYPE OF CONSULTATION: Nephrology. REASON FOR CONSULTATION: Acute kidney injury. PHYSICIAN REQUESTING CONSULT: Karl Segura MD HISTORY OF PRESENT ILLNESS: This is an 83-year-old female with a past medical history of chronic kid sherlyn disease with a baseline creatinine between 1.0 to 1.5 mg/dL, a history heart failure, systolic, d iastolic, history of moderate to severe stenosis, history of paroxysmal AFib, history of diabetes, hy pertension, obesity, COPD, who presents to [facility] with increasing shortness of breath over the past several days. The patient in the emergency room was noted to be in decompensate d heart failure, was admitted to telemetry and placed on diuretic therapy. Over the course of next 2 to 3 days, the patient has had adequate diuresis. The patient also during the hospital course was n oted to have peripheral vascular disease, was seen by vascular surgery. The patient also was noted t o have episodes of confusion and delirium. In terms of patient's renal history, as stated above the patient has CKD. On admission, the patient' s creatinine was 1.08 mg/dL, which is increased to 1.6 mg/dL. At this time, the patient has been on diuretic therapy, has had significant hemodynamic fluctuations. PAST MEDICAL HISTORY: As stated above, history of COPD, history of hypertension, history of diabetes , history of heart failure, history of chronic kidney disease. PAST SURGICAL HISTORY: Status post hysterectomy, thyroidectomy. FAMILY HISTORY: No history of kidney disease. SOCIAL HISTORY: Does not drink, smoke or do drugs. MEDICATIONS: Have been reviewed. ALLERGIES: NO KNOWN DRUG ALLERGIES. REVIEW OF SYSTEMS: A 14-point review of systems conducted. Pertinent positives stated in HPI, other kaufman negative. PHYSICAL EXAMINATION: VITAL SIGNS: Blood pressure 110/52, respiration 19, pulse 71, temperature 97.3. HEENT: Head is normocephalic. NECK: Supple. HEART: Regular rate. LUNGS: Show diminished breath sounds at the base. ABDOMEN: Soft, nontender to palpation without rebound or guarding. EXTREMITIES: Negative for clubbing, cyanosis. Positive edema. DERMATOLOGIC: No rashes. MUSCULOSKELETAL: No joint effusions. NEUROLOGIC: No focal deficits. LABORATORY DATA: Show a sodium of 140, potassium 4.4, BUN 39, creatinine 1.60. White count 4.6, hem oglobin 10.2, platelet count is 182. The patient's urinalysis is pending. IMAGING STUDIES: Including chest x-ray shows findings of cardiomegaly with bibasilar atelectasis. P revloulou renal ultrasound in 02/2018 showed hyperechoic left kidney consistent with medical renal dise ase. ASSESSMENT AND PLAN: This is an 83-year-old female who presents with: 1. Nonoliguric acute kidney injury on top of chronic kidney disease with previous baseline creatinin e around 1 to 1.4 mg/dL. Etiology of current acute kidney injury is secondary to hemodynamics, diure tics, possible cardiorenal syndrome. The patient's renal function has been fine while on diuretic th erapy lower suspicion for acute glomerulonephritis or vasculitis given the patient's clinical present ation. The possibility of tubular injury is a consideration. Plan at this point is to do a full ayo luation. We will check a UA with microanalysis, check urine electrolytes, calculate a FENa, fraction excretion of urea. I agree with deescalating diuretic therapy. Otherwise, continue supportive care , renally dose all meds, avoid nephrotoxins. 2. Anemia. Monitor hemoglobin and hematocrit levels. 3. Mineral bone disorder. Monitor calcium and phosphorus level. 4. Acute on chronic systolic diastolic heart failure. The patient is clinically improving. Continu e diuretic therapy at lower dose. Monitor I's and O's closely. 5. Acute hypoxemic respiratory failure. Etiology is multifactorial secondary to congestive heart fa ilure, possible chronic obstructive pulmonary disease exacerbation. Continue current medical managem ent, supplemental oxygen. 6. Peripheral vascular disease. The patient has been seen by vascular surgery. We will need an ang iogram once renal function to acute kidney injury, resolved. 7. Diabetes. Continue current insulin regimen. 8. Hypertension. Continue current blood pressure regimen. 9. History of aortic stenosis. Continue medical management. 10. History of pulmonary embolism. Continue Eliquis. 11. Acute encephalopathy. Etiology is toxic metabolic. Continue to monitor. Thank you, Dr. Segura, for this interesting consult. It will be a pleasure to follow patient with alpa hernandez throughout the hospital course. Dictated By: JOCELINE OLEA/MIRTA Conf#: [id number] DID#: [id number] CC: KARL SEGURA MD;*[facility]*
--- NOTE | 2018-09-13 18:09 | NUR ---
EOSS PT IS STABLE, REFUSED TO HAVE AN IV INSERTED. FAMILY REFUSE TO HAVE PT BE PLACED IN A CARE HOME UPON DISCHARGE, AND ARE REQUESTING HOME HEALTH AND HOME 02. MD AND CASE MANAGEMENT ARE AWARE. HOURLY ROUNDING DONE, BED ALARM ON, CALL LIGHT WITHIN REACH. VS WNL.
[2018-09-14] VITALS (13 sets, daily range): BP systolic 114–142; BP diastolic 63–70; PULSE 60–80; RESP 18
[2018-09-14] MEDS: ACCU-CHEK XX SCH (02:00)
--- NOTE | 2018-09-14 06:08 | NUR ---
EOSS ; PT SLEPT ON AND OFF GETS SHORT OF BREATH ON EXERTION O2 2L ON. STILL WITH BILAT LOWER EXTREMITY EDEMA INSTRUCTED TO ELEVATE BLE TO REDUCE EDEMA. TELE RHYTHM REMAINED AFIB CONTROLLED HR. AWAITING CM TO ARRANGE FOR HOME O2 AND HOME HEALTH RN.
[2018-09-14] MEDS: INSULIN ASPART [NOVOLOG] 3 ML PEN SC SCH ×7 (07:30→20:42)
[2018-09-14] MEDS: FLUTICASONE/VILANTEROL 100-25 INH SCH (08:26)
[2018-09-14] MEDS: SODIUM HYPOCHLORITE (1/40) 1 APPLIC BTL IRR SCH (08:26)
[2018-09-14] MEDS: TIOTROPIUM 18 MCG CAPSULE INHA DEV INH SCH (08:26)
[2018-09-14] MEDS: ASPIRIN 81 MG TAB PO SCH (08:27)
[2018-09-14] MEDS: FUROSEMIDE 40 MG INJ IV SCH (08:27)
[2018-09-14] MEDS: DILTIAZEM (CD) 120 MG CAP PO SCH ×2 (08:27→20:35)
[2018-09-14] MEDS: APIXABAN 5 MG TABLET PO SCH ×2 (08:27→20:35)
[2018-09-14] MEDS: AMMONIUM LACTATE 12% 225 GM LOT TOP SCH (08:28)
[2018-09-14] MEDS: CLOTRIMAZOLE 1% 30 GM CR TOP SCH ×2 (08:28)
[2018-09-14] MEDS: PSYLLIUM 28% PACKET PO SCH (08:29)
[2018-09-14] MEDS: LINAGLIPTIN 5 MG TABLET PO SCH (08:30)
[2018-09-14] MEDS: METOPROLOL 25 MG TAB PO SCH ×2 (08:30→20:36)
[2018-09-14] MEDS: INSULIN GLARGINE [LANTus] (100 UNITS/ML) SYG SC SCH (08:40)
--- NOTE | 2018-09-14 09:40 | NUR ---
PT NOTE KAMERON Whiting cleared pt for PT. Attempted to see pt however pt refused. Educated pt on benefits and importance of PT and despite max encouragement from this therapist pt continued to refuse. Stated, "I'm not ready for that. I keep telling you I'm not ready for that. Come back later." Will f/u if time permits
--- NOTE | 2018-09-14 13:01 | PN ---
DATE: 09/14/2018 SUBJECTIVE: The patient is stable. No events overnight. No fevers, chills, nausea, vomiting. OBJECTIVE: VITAL SIGNS: Blood pressure is 134/65, respiration 18, pulse 65, temperature 98.0. HEENT: Head is normocephalic. NECK: Supple. HEART: Regular rate. LUNGS: Show diminished breath sounds at the base. ABDOMEN: Soft, nontender to palpation. No rebound or guarding. EXTREMITIES: Negative for clubbing, cyanosis. Positive edema. DERMATOLOGIC: No rashes. MUSCULOSKELETAL: No joint effusion. NEUROLOGIC: No change in exam. MEDICATIONS: The patient's medications have been reviewed. LABORATORY DATA: Shows a BUN 44, creatinine 1.39. White count 4.7, hemoglobin 10.2. The patient's urinalysis shows FENa greater than 1%. Urinalysis does show pyuria and hematuria, but no significant proteinuria. A renal ultrasound was previously reviewed. ASSESSMENT AND PLAN: 1. Nonoliguric acute kidney injury on top of chronic kidney disease with previous baseline creatinin e of 1 to 1.4 mg/dL. Etiology of acute kidney injury is secondary to hemodynamics, possible cardiore nal syndrome. The patient's renal function has improved in the last 24 hours. At this point, would continue current treatment plan. Continue current diuretic regimen. Would consider escalating diure tic regimen if renal function remains stable. Otherwise, continue supportive care, renally dose all meds, avoid nephrotoxins. 2. Anemia. Monitor hemoglobin and hematocrit levels. 3. Mineral bone disorder. Monitor calcium and phosphorus levels. 4. Acute on chronic systolic, diastolic heart failure. The patient continues to be edematous. Shor tness of breath has improved. Continue current diuretic regimen. 5. Acute hypoxemic respiratory failure secondary to congestive heart failure, possible chronic obstr uctive pulmonary disease exacerbation. Continue medical management. 6. Peripheral vascular disease. The patient was seen by vascular surgery. Patient will need angiog juan once we know renal function has stabilized. 7. Diabetes. Continue current insulin regimen. 8. Hypertension. Continue current blood pressure regimen. 9. History of aortic stenosis. Continue medical management. 10. History of PE. Continue Eliquis. 11. Acute encephalopathy, etiology is toxic metabolic. Continue to monitor. Dictated By: JOCELINE OLEA/MIRTA Conf#: [id number] DID#: [id number] CC: HARIS GREEN MD; JABIER SEBASTIAN MD;*[facility]*
--- NOTE | 2018-09-14 13:22 | NUR ---
Home Health arrangement; Able to arrange for home health services for Patient with [facility] . However due to the holiday, the soonest they can see Patient will be on Friday or latest . Will inform Patient and care team.
[2018-09-14] MEDS: DIGOXIN 0.125 MG TAB PO SCH (13:35)
--- NOTE | 2018-09-14 16:24 | PN ---
Date/Time of Note Date/Time of Note DATE: 09/14/18 TIME: 16:23 Assessment/Plan VTE Prophylaxis Risk score (from Nsg)>0 risk: 6 SCD applied (from Nsg): Yes Pharmacological prophylaxis: heparin Lines/Catheters IV Catheter Type (from Nrsg): Saline Lock Urinary Cath still in place: No Assessment/Plan Hospital Course 1. Acute on chronic systolic and diastolic heart failure Patient with elevated BNP and lower extremity swelling Continue Lasix IV but have change frequency to daily secondary to acute kidney injury Patient continues to require supplemental oxygen 2. 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 Peripheral arterial disease Peripheral arterial studies are consistent with peripheral arterial disease Vascular surgery consultation appreciated, patient will need an angiogram but will hold off for now secondary to acute kidney injury 4. Acute kidney injury on CKD likely secondary to diuresis Nephrology consultation obtained Change Lasix 40 mg IV from twice daily to daily 5. Debility with delirium Reorient manager nicu to arrange for intermediate placement Avoid psychoactive medications 6. Diabetes Continue home meds 7. Hypertension Continue home meds 8. Moderate to severe aortic stenosis Outpatient follow-up 9. History of PE Continue Eliquis Prophylaxis: Eliquis DC planning: Patient not stable for DC, monitor renal function, follow-up with vascular surgery recommendations, patient will ultimately need intermediate placement secondary to debility Result Diagram: 09/14/18 0453 09/14/18 0453 Results 24hrs Laboratory Tests Test 09/13/18 17:09 09/13/18 20:58 09/13/18 23:00 09/14/18 02:19 Bedside Glucose 163 181 224 H Urine Color YELLOW Urine Clarity SLIGHTLY CLOUDY A Urine pH 6.0 Urine Specific 1.017 [place] Urine Ketones NEGATIVE Urine Nitrite NEGATIVE Urine Bilirubin NEGATIVE Urine 2+ H Urobilinogen Urine Leukocyte TRACE A Esterase Urine 24 H Microscopic RBC Urine 14 H Microscopic WBC Urine Squamous FEW Epithelial Cell s Urine Bacteria FEW A Urine 1+ H Hemoglobin Urine Random 93.94 Creatinine Urine Random 41 Sodium Urine Glucose NEGATIVE Urine Total 11.0 Protein Test 09/14/18 04:53 09/14/18 07:27 09/14/18 11:48 White Blood 4.7 L Count Red Blood Count 4.41 Hemoglobin 10.2 L Hematocrit 33.2 L Mean 75.3 L Corpuscular Volume Mean 23.1 L Corpuscular Hemoglobin Mean 30.7 L Corpuscular Hemoglobin Conc ent Red Cell 18.1 H Distribution Width Platelet Count 204 Mean Platelet 12.2 H Volume Immature 0.400 Granulocytes % Neutrophils % 57.5 Lymphocytes % 25.4 Monocytes % 12.3 H Eosinophils % 3.8 Basophils % 0.6 Nucleated Red 0.0 Blood Cells % Immature 0.020 Granulocytes # Neutrophils # 2.7 Lymphocytes # 1.2 Monocytes # 0.6 Eosinophils # 0.2 Basophils # 0.0 Nucleated Red 0.0 Blood Cells # Sodium Level 139 Potassium Level 4.1 Chloride Level 103 Carbon Dioxide 29 Level Anion Gap 7 Blood Urea 44 H Nitrogen Creatinine 1.39 H Est Glomerular Filtrat Rate mL/min Glucose Level 189 Calcium Level 8.9 Phosphorus 3.6 Level Magnesium Level 1.9 Bedside Glucose 186 128 Subjective 24 Hr Interval Summary Free Text/Dictation No change to clinical status Awaiting placement Exam/Review of Systems Vital Signs Vitals Vital Signs Date Temp Pulse Resp B/P (MAP) Pulse Ox O2 O2 Flow FiO2 Time Delivery Rate 09/14/18 98.0 68 18 130/63 98 15:40 (85) 09/14/18 2.0 11:44 09/14/18 Nasal 07:47 Cannula Intake and Output 09/13/18 09/13/18 09/14/18 1515:00 23:00 07:00 IntakeIntake Total 800 ml 300 ml BalanceBalance 800 ml 300 ml Exam Constitutional: alert, oriented, well developed Psych: no complaints, nl mood/affect Head: normocephalic, atraumatic Eyes: nl conjunctiva, EOMI, nl lids, nl sclera, PERRL ENMT: nl external ears & nose, nl lips & teeth, nl nasal mucosa & septum Neck: supple, non-tender Respiratory: clear to auscultation, normal air movement Cardiovascular: regular rate and rhythm, nl pulses Gastrointestinal: soft, nl liver, spleen, non-tender Musculoskeletal: nl extremities to inspection, nl gait and stance Extremities: normal pulses Neurological: RESIDENT C[employer] ASSOCIATE II-XII intact, nl mental status, nl speech, nl strength Skin: nl turgor; No rash or lesions Lymph: nl lymph nodes Medications Medications Current Medications IV Flush (NS 3 ml) 3 ml PER PROTOCOL IV ; Start 09/09/18 at 19:00 Ondansetron HCl (Zofran Inj) 4 mg Q6H PRN IV NAUSEA AND/OR VOMITING; Start 09/09/18 at 19:00 Acetaminophen (Tylenol Tab) 650 mg Q6H PRN PO PAIN LEVEL 1-3 OR FEVER Last administered on 09/12/18 05:27; Admin Dose 650 MG; Start 09/09/18 at 19:00 Acetaminophen/ Hydrocodone Bitart ([place] (5/325)) 1 tab Q6H PRN PO MODERATE PAIN LEVEL 4-6; Start 09/09/18 at 19:00 Docusate Sodium (Colace) 100 mg Q12H PRN PO CONSTIPATION; Start 09/09/18 at 19:00 Zolpidem Tartrate (Ambien) 5 mg QHS PRN PO SLEEP; Start 09/09/18 at 19:00 Apixaban (Eliquis) 2.5 mg BID PO Last administered on 09/14/18 08:27; Admin Dose 2.5 MG; Start 09/09/18 at 21:00 Aspirin (Aspirin) 81 mg DAILY PO Last administered on 09/14/18 08:27; Admin Dose 81 MG; Start 09/10/18 at 09:00 Clotrimazole (Lotrimin Cr) 1 applic BID TOP Last administered on 09/14/18 08:28; Admin Dose 1 APPLIC; Start 09/09/18 at 21:00 Digoxin (Digoxin) 0.125 mg DAILY@13 PO Last administered on 09/14/18 13:35; Admin Dose 0.125 MG; Start 09/10/18 at 13:00 Diltiazem HCl (Cardizem Cd) 120 mg BID PO Last administered on 09/14/18 08:27; Admin Dose 120 MG; Start 09/09/18 at 21:00 Fluticasone/ Vilanterol (Breo Ellipta 100-25 Mcg Inh) 1 inh DAILY INH Last administered on 09/14/18 08:26; Admin Dose 1 INH; Start 09/10/18 at 09:00 Hydralazine HCl (Apresoline) 50 mg Q8 PO Last administered on 09/14/18 13:35; Admin Dose 50 MG; Start 09/09/18 at 22:00 Insulin Aspart (Novolog Insulin Pen) 6 unit WITH BREAKFAST SC Last administered on 12/24/18at 07:30; Admin Dose 6 UNIT; Start 09/10/18 at 08:00 Insulin Aspart (Novolog Insulin Pen) 10 unit WITH DINNER SC Last administered on 09/13/18at 17:22; Admin Dose 10 UNIT; Start 09/10/18 at 18:00 Insulin Aspart (Novolog Insulin Pen) 10 unit WITH LUNCH SC Last administered on 09/14/18at 11:49; Admin Dose 10 UNIT; Start 09/10/18 at 12:00 Linagliptin (Tradjenta) 5 mg DAILY PO Last administered on 09/14/18at 08:30; Admin Dose 5 MG; Start 09/10/18 at 09:00 Metoprolol Tartrate (Lopressor) 75 mg BID PO Last administered on 09/14/18 08:30; Admin Dose 75 MG; Start 09/09/18 at 21:00 Tiotropium [place] (Spiriva) 1 inh DAILY INH Last administered on 09/14/18at 08:26; Admin Dose 1 INH; Start 09/10/18 at 09:00 Psyllium Hydrophilic Mucilloid (Metamucil) 1 pkt DAILY PO Last administered on 09/12/18at 08:12; Admin Dose 1 PKT; Start 09/10/18 at 09:00 Albuterol/ Ipratropium (Duoneb) 3 ml Q4H RESP THERAPY PRN HHN SHORTNESS OF BREATH Last administered on 09/10/18at 10:12; Admin Dose 3 ML; Start 09/09/18 at 19:00 Diagnostic Test (Pha) (Accu-Chek) 1 ea 02 XX ; Start 09/10/18 at 02:00 Insulin Aspart (Novolog Insulin Pen) NOVOLOG *MILD* ALGORITHM WITH MEALS BEDTIME SC Last administered on 09/14/18at 07:30; Admin Dose 2 UNIT; Start 09/09/18 at 21:00 Miscellaneous Information 1 ea NOTE XX ; Start 09/09/18 at 19:00 Glucose (Glutose) 15 gm Q15M PRN PO DECREASED GLUCOSE; Start 09/09/18 at 19:00 Glucose (Glutose) 22.5 gm Q15M PRN PO DECREASED GLUCOSE; Start 09/09/18 at 19:00 Dextrose (D50w Syringe) 25 ml Q15M PRN IV DECREASED GLUCOSE; Start 09/09/18 at 19:00 Dextrose (D50w Syringe) 50 ml Q15M PRN IV DECREASED GLUCOSE; Start 09/09/18 at 19:00 Glucagon (Glucagen) 1 mg Q15M PRN IM DECREASED GLUCOSE; Start 09/09/18 at 19:00 Glucose (Glutose) 15 gm Q15M PRN BUCCAL DECREASED GLUCOSE; Start 09/09/18 at 19:00 Miscellaneous Information (Pending [facility] Order For Wound Care) This patient valentino... PRN PRN XX wounds; Start 09/10/18 at 08:00 Insulin Glargine (Lantus) 5 units DAILY SC Last administered on 09/14/18at 08:40; Admin Dose 5 UNITS; Start 09/10/18 at 14:05 Morphine Sulfate (morphine) 6 mg Q4H PRN PO SEVERE PAIN LEVEL 7-10; Start 09/10/18 at 23:00 Sodium Hypochlorite (Dakin'S (Dilute 1/40)) 1 applic DAILY IRR Last administered on 09/14/18at 08:26; Admin Dose 1 APPLIC; Start 09/11/18 at 16:00 Ammonium Lactate (Lac-Hydrin 12% Lotion) 1 applic DAILY TOP Last administered on 09/14/18at 08:28; Admin Dose 1 APPLIC; Start 09/11/18 at 16:00 Clotrimazole (Lotrimin Cr) 1 applic BID TOP Last administered on 09/14/18at 08:28; Admin Dose 1 APPLIC; Start 09/11/18 at 21:00 Furosemide (Lasix) 40 mg DAILY IV Last administered on 09/14/18at 08:27; Admin Dose 40 MG; Start 09/14/18 at 09:00 HARIS GREEN MD Sep 14, 2018 16:24
--- NOTE | 2018-09-14 18:21 | NUR ---
EOSS PT IS STABLE, NO S/S OF DISTRESS, NO C/O PAIN. WOUND CARE DONE, REFUSED PHYSICAL THERAPY IN THE MORNING, ALL MEDS WERE GIVEN. HOURLY ROUNDING DONE, BED ALARM ON, CALL LIGHT WITHIN REACH. PT GOT ACCEPTED TO [facility], POSSIBLE DISCHARGE AFTER THE HOLIDAY ON FRI/. VS WNL.
--- NOTE | 2018-09-14 18:23 | PN ---
Date/Time of Note Date/Time of Note DATE: 09/14/18 TIME: 18:21 Assessment/Plan Lines/Catheters IV Catheter Type (from Nrsg): Saline Lock [place] in Place (from Nrsg): No Assessment/Plan Assessment/Plan HISTORY OF PRESENT ILLNESS: This is an 83-year-old female with a history of chronic kidney disease, hypertension, diabetes, admitted because of bilateral leg ulceration. The patient is currently being treated with local wound care, antibiotics and will be having a debridement. Cr 1.39 will need angio when OK by nephrology Subjective 24 Hr Interval Summary Constitutional: improved Pain Control: mild Exam/Review of Systems Vital Signs Vitals Vital Signs Date Temp Pulse Resp B/P (MAP) Pulse Ox O2 O2 Flow FiO2 Time Delivery Rate 09/14/18 60 17:49 09/14/18 98.0 18 130/63 98 15:40 (85) 09/14/18 2.0 11:44 09/14/18 Nasal 07:47 Cannula Intake and Output 09/13/18 09/13/18 09/14/18 1515:00 23:00 07:00 IntakeIntake Total 800 ml 300 ml BalanceBalance 800 ml 300 ml Exam ENMT: nl external ears & nose, nl lips & teeth, nl nasal mucosa & septum, mucosa pink and moist Neck: supple, non-tender Respiratory: clear to auscultation, normal air movement Cardiovascular: regular rate and rhythm, nl pulses Gastrointestinal: soft, nl liver, spleen, non-tender Musculoskeletal: nl extremities to inspection, nl gait and stance Extremities: normal pulses Results Result Diagram: 09/14/18 0453 09/14/18 0453 RODERICK CURIEL MD Sep 14, 2018 18:23
--- NOTE | 2018-09-14 20:51 | PN ---
Date/Time of Note Date/Time of Note DATE: 09/14/18 TIME: 20:50 Assessment/Plan VTE Prophylaxis Risk score (from Nsg)>0 risk: 6 SCD applied (from Nsg): Yes Pharmacological prophylaxis: heparin Lines/Catheters IV Catheter Type (from Nrsg): Saline Lock Urinary Cath still in place: No Assessment/Plan Hospital Course 83 y/o diabetic female patient who presents to the floor with right lower extremity ulceration. Patient reports that couple days ago she noticed a large blister to her right leg area and it popped resulting with an ulceration. She was admitted for worsening lower extremity swelling and mild shortness of breath over the past several days. In the ER patient's BNP was elevated, ultrasound was negative for DVT. Of note patient does normally ambulates with a walker at home but has been having difficulty doing so due to her lower extremity swelling. Assessment/Plan 1) RLE venous ulceration 2) Venous insufficiency 3) Lymphaedema 4) Tinea pedis 5) Onychomycosis 6) CHF 7) DM2 with peripheral neuropathy Plan: Recommend daily wound irrigation with dakins and dress with xeroform and dry sterile dressings. Recommend daily application of clotrimazole and lac-hydrin of bilateral lower extremities and dress with kerlix and kath compression wrap to assist with edema management. Non-invasive arterial studies revealed: Monophasic waveforms in the bilateral posterior tibial and dorsalis pedis arteries consistent with significant bilateral infrapopliteal stenoses. Normal bilateral ABIs. Appreciate vascular input and angiogram is planned for patient. Medical decisions, treatment, and plan coordinated with Dr. Barrios. Result Diagram: 09/14/18 0453 09/14/18 0453 Results 24hrs Laboratory Tests Test 09/13/18 20:58 09/13/18 23:00 09/14/18 02:19 09/14/18 04:53 Bedside Glucose 181 224 H Urine Color YELLOW Urine Clarity SLIGHTLY CLOUDY A Urine pH 6.0 Urine Specific 1.017 [place] Urine Ketones NEGATIVE Urine Nitrite NEGATIVE Urine Bilirubin NEGATIVE Urine 2+ H Urobilinogen Urine Leukocyte TRACE A Esterase Urine 24 H Microscopic RBC Urine 14 H Microscopic WBC Urine Squamous FEW Epithelial Cell s Urine Bacteria FEW A Urine 1+ H Hemoglobin Urine Random 93.94 Creatinine Urine Random 41 Sodium Urine Glucose NEGATIVE Urine Total 11.0 Protein White Blood 4.7 L Count Red Blood Count 4.41 Hemoglobin 10.2 L Hematocrit 33.2 L Mean 75.3 L Corpuscular Volume Mean 23.1 L Corpuscular Hemoglobin Mean 30.7 L Corpuscular Hemoglobin Conc ent Red Cell 18.1 H Distribution Width Platelet Count 204 Mean Platelet 12.2 H Volume Immature 0.400 Granulocytes % Neutrophils % 57.5 Lymphocytes % 25.4 Monocytes % 12.3 H Eosinophils % 3.8 Basophils % 0.6 Nucleated Red 0.0 Blood Cells % Immature 0.020 Granulocytes # Neutrophils # 2.7 Lymphocytes # 1.2 Monocytes # 0.6 Eosinophils # 0.2 Basophils # 0.0 Nucleated Red 0.0 Blood Cells # Sodium Level 139 Potassium Level 4.1 Chloride Level 103 Carbon Dioxide 29 Level Anion Gap 7 Blood Urea 44 H Nitrogen Creatinine 1.39 H Est Glomerular Filtrat Rate mL/min Glucose Level 189 Calcium Level 8.9 Phosphorus 3.6 Level Magnesium Level 1.9 Test 09/14/18 07:27 09/14/18 11:48 09/14/18 17:16 09/14/18 20:39 Bedside Glucose 186 128 192 227 H Subjective 24 Hr Interval Summary Free Text/Dictation No acute events overnight. Exam/Review of Systems Vital Signs Vitals Vital Signs Date Temp Pulse Resp B/P (MAP) Pulse Ox O2 O2 Flow FiO2 Time Delivery Rate 09/14/18 97.7 70 18 142/63 98 19:04 (89) 09/14/18 2.0 11:44 09/14/18 Nasal 07:47 Cannula Intake and Output 09/13/18 09/13/18 09/14/18 1515:00 23:00 07:00 IntakeIntake Total 800 ml 300 ml BalanceBalance 800 ml 300 ml Exam Unable to palpate pedal pulses 2+ pitting edema with cobblestone appearance to bilateral lower extremities Right lateral proximal leg ulcer mixed fibrogranular wound bed measuring 1.5 x 1.4 x 0.2cm. No probing to bone, no proximal streaking appreciated CFT less than 4 seconds to the digits Skin temperature gradient warm to warm from proximal leg to distal feet Mycotic thickened nails mocassin distribution white scaling lesions absent protective sensations to the feet. Medications Medications Current Medications IV Flush (NS 3 ml) 3 ml PER PROTOCOL IV ; Start 09/09/18 at 19:00 Ondansetron HCl (Zofran Inj) 4 mg Q6H PRN IV NAUSEA AND/OR VOMITING; Start 09/09/18 at 19:00 Acetaminophen (Tylenol Tab) 650 mg Q6H PRN PO PAIN LEVEL 1-3 OR FEVER Last administered on 09/12/18 05:27; Admin Dose 650 MG; Start 09/09/18 at 19:00 Acetaminophen/ Hydrocodone Bitart ([place] (5/325)) 1 tab Q6H PRN PO MODERATE PAIN LEVEL 4-6; Start 09/09/18 at 19:00 Docusate Sodium (Colace) 100 mg Q12H PRN PO CONSTIPATION; Start 09/09/18 at 19:00 Zolpidem Tartrate (Ambien) 5 mg QHS PRN PO SLEEP; Start 09/09/18 at 19:00 Apixaban (Eliquis) 2.5 mg BID PO Last administered on 09/14/18 20:35; Admin Dose 2.5 MG; Start 09/09/18 at 21:00 Aspirin (Aspirin) 81 mg DAILY PO Last administered on 09/14/18 08:27; Admin Dose 81 MG; Start 09/10/18 at 09:00 Clotrimazole (Lotrimin Cr) 1 applic BID TOP Last administered on 09/14/18 08:28; Admin Dose 1 APPLIC; Start 09/09/18 at 21:00 Digoxin (Digoxin) 0.125 mg DAILY@13 PO Last administered on 09/14/18 13:35; Admin Dose 0.125 MG; Start 09/10/18 at 13:00 Diltiazem HCl (Cardizem Cd) 120 mg BID PO Last administered on 09/14/18 20:35; Admin Dose 120 MG; Start 09/09/18 at 21:00 Fluticasone/ Vilanterol (Breo Ellipta 100-25 Mcg Inh) 1 inh DAILY INH Last administered on 09/14/18 08:26; Admin Dose 1 INH; Start 09/10/18 at 09:00 Hydralazine HCl (Apresoline) 50 mg Q8 PO Last administered on 09/14/18 13:35; Admin Dose 50 MG; Start 09/09/18 at 22:00 Insulin Aspart (Novolog Insulin Pen) 6 unit WITH BREAKFAST SC Last administered on 09/14/18 07:30; Admin Dose 6 UNIT; Start 09/10/18 at 08:00 Insulin Aspart (Novolog Insulin Pen) 10 unit WITH DINNER SC Last administered on 09/14/18at 17:20; Admin Dose 10 UNIT; Start 09/10/18 at 18:00 Insulin Aspart (Novolog Insulin Pen) 10 unit WITH LUNCH SC Last administered on 09/14/18at 11:49; Admin Dose 10 UNIT; Start 09/10/18 at 12:00 Linagliptin (Tradjenta) 5 mg DAILY PO Last administered on 09/14/18at 08:30; Admin Dose 5 MG; Start 09/10/18 at 09:00 Metoprolol Tartrate (Lopressor) 75 mg BID PO Last administered on 09/14/18at 20:36; Admin Dose 75 MG; Start 09/09/18 at 21:00 Tiotropium [place] (Spiriva) 1 inh DAILY INH Last administered on 09/14/18at 08:26; Admin Dose 1 INH; Start 09/10/18 at 09:00 Psyllium Hydrophilic Mucilloid (Metamucil) 1 pkt DAILY PO Last administered on 09/12/18at 08:12; Admin Dose 1 PKT; Start 09/10/18 at 09:00 Albuterol/ Ipratropium (Duoneb) 3 ml Q4H RESP THERAPY PRN HHN SHORTNESS OF BREATH Last administered on 09/10/18at 10:12; Admin Dose 3 ML; Start 09/09/18 at 19:00 Insulin Aspart (Novolog Insulin Pen) NOVOLOG *MILD* ALGORITHM WITH MEALS BEDTIME SC Last administered on 09/14/18at 20:42; Admin Dose 2 UNIT; Start 09/09/18 at 21:00 Miscellaneous Information 1 ea NOTE XX ; Start 09/09/18 at 19:00 Glucose (Glutose) 15 gm Q15M PRN PO DECREASED GLUCOSE; Start 09/09/18 at 19:00 Glucose (Glutose) 22.5 gm Q15M PRN PO DECREASED GLUCOSE; Start 09/09/18 at 19:00 Dextrose (D50w Syringe) 25 ml Q15M PRN IV DECREASED GLUCOSE; Start 09/09/18 at 19:00 Dextrose (D50w Syringe) 50 ml Q15M PRN IV DECREASED GLUCOSE; Start 09/09/18 at 19:00 Glucagon (Glucagen) 1 mg Q15M PRN IM DECREASED GLUCOSE; Start 09/09/18 at 19:00 Glucose (Glutose) 15 gm Q15M PRN BUCCAL DECREASED GLUCOSE; Start 09/09/18 at 19:00 Miscellaneous Information (Pending [facility] Order For Wound Care) This patient valentino... PRN PRN XX wounds; Start 09/10/18 at 08:00 Insulin Glargine (Lantus) 5 units DAILY SC Last administered on 09/14/18at 08:40; Admin Dose 5 UNITS; Start 09/10/18 at 14:05 Morphine Sulfate (morphine) 6 mg Q4H PRN PO SEVERE PAIN LEVEL 7-10; Start 09/10/18 at 23:00 Sodium Hypochlorite (Dakin'S (Dilute )) 1 applic DAILY IRR Last administered on 09/14/18 08:26; Admin Dose 1 APPLIC; Start 09/11/18 at 16:00 Ammonium Lactate (Lac-Hydrin 12% Lotion) 1 applic DAILY TOP Last administered on 09/14/18 08:28; Admin Dose 1 APPLIC; Start 09/11/18 at 16:00 Clotrimazole (Lotrimin Cr) 1 applic BID TOP Last administered on 09/14/18 08:28; Admin Dose 1 APPLIC; Start 09/11/18 at 21:00 Furosemide (Lasix) 40 mg DAILY IV Last administered on 09/14/18 08:27; Admin Dose 40 MG; Start 09/14/18 at 09:00 BASHIR JOHNSON DPM Sep 14, 2018 20:51
[2018-09-15] VITALS (12 sets, daily range): BP systolic 117–143; BP diastolic 55–65; PULSE 56–75; RESP 18–22
[2018-09-15] MEDS: CLOTRIMAZOLE 1% 30 GM CR TOP SCH ×6 (00:46→21:37)
[2018-09-15] MEDS: ACETAMINOPHEN 325 MG TAB PO PRN ×2 (00:53→12:10)
--- NOTE | 2018-09-15 05:53 | NUR ---
eoss; pt remained short of breath on exertion with o2 2L on .dressing to both lower extremity intact and dry. afebrile. will continue plan of care.
[2018-09-15] MEDS: ALBUTEROL/IPRATROPIUM (NEB) 3 ML AMP HHN PRN (07:40)
[2018-09-15] MEDS: INSULIN ASPART [NOVOLOG] 3 ML PEN SC SCH ×7 (08:10→21:00)
[2018-09-15] MEDS: PSYLLIUM 28% PACKET PO SCH (08:44)
[2018-09-15] MEDS: LINAGLIPTIN 5 MG TABLET PO SCH (08:46)
[2018-09-15] MEDS: APIXABAN 5 MG TABLET PO SCH ×2 (08:46→21:43)
[2018-09-15] MEDS: ASPIRIN 81 MG TAB PO SCH (08:46)
[2018-09-15] MEDS: FLUTICASONE/VILANTEROL 100-25 INH SCH (08:47)
[2018-09-15] MEDS: TIOTROPIUM 18 MCG CAPSULE INHA DEV INH SCH (08:48)
[2018-09-15] MEDS: DILTIAZEM (CD) 120 MG CAP PO SCH ×2 (08:50→21:44)
[2018-09-15] MEDS: METOPROLOL 25 MG TAB PO SCH ×2 (08:50→21:38)
[2018-09-15] MEDS: FUROSEMIDE 40 MG INJ IV SCH ×2 (08:51→17:39)
[2018-09-15] MEDS: AMMONIUM LACTATE 12% 225 GM LOT TOP SCH (08:53)
[2018-09-15] MEDS: SODIUM HYPOCHLORITE (1/40) 1 APPLIC BTL IRR SCH (08:53)
[2018-09-15] MEDS: INSULIN GLARGINE [LANTus] (100 UNITS/ML) SYG SC SCH (09:06)
--- NOTE | 2018-09-15 12:18 | PN ---
DATE: 09/15/2018 SUBJECTIVE: The patient was noted to be more short of breath this morning. No other acute events no myranda overnight. No hemoptysis, hematemesis, hematochezia. OBJECTIVE: VITAL SIGNS: Blood pressure is 131/58, respirations 20, pulse 70, temperature 98.4. HEENT: Head is normocephalic. NECK: Supple. HEART: Regular rate. LUNGS: Show diminished breath sounds at base. ABDOMEN: Soft, nontender to palpation. No rebound or guarding. EXTREMITIES: Negative for clubbing, cyanosis. Positive edema. DERMATOLOGIC: No rashes. MUSCULOSKELETAL: No joint effusions. NEUROLOGIC: No change in exam. MEDICATIONS: Have been reviewed. LABORATORY DATA: Show sodium 139, BUN 29, creatinine 1.29. White count 4.3, hemoglobin 9.5, platele t count is 186. ASSESSMENT AND PLAN: 1. Nonoliguric acute kidney injury on top of chronic kidney disease with a previous baseline creatin ine of 1.3 to 1.4 mg/dL. Etiology of acute kidney injury is secondary to hemodynamics, cardiorenal s yndrome. The patient's renal function has been fluctuating. Diuretics have been adjusted. The barrie ent remains decompensated. We will intensify diuretic therapy to b.i.d. Consider adding metolazone. Monitor electrolytes, renal function closely. 2. Acute hypoxemic respiratory failure secondary to congestive heart failure exacerbation, possible underlying chronic obstructive pulmonary disease/asthma. Continue diuretic therapy. Continue nebuli zers. 3. Anemia. Monitor hemoglobin and hematocrit levels. 4. Mineral bone disorder. Monitor calcium and phosphatase levels. 5. Acute on chronic diastolic heart failure. The patient remains decompensated. Continue current d iuretic regimen. 6. Peripheral vascular disease. Continue medical management. Follow up with surgery. 7. Diabetes. Continue current insulin regimen. 8. Hypertension. Continue current blood pressure regimen. 9. Aortic stenosis. Continue medical management. 10. History of pulmonary embolism. Continue Eliquis. 11. Encephalopathy. The patient is clinically improving. Continue to monitor. Dictated By: JOCELINE MCCALLUM DO NR/NTS Conf#: [id number] DID#: [id number] CC: HARIS GREEN MD; JABIER SEBASTIAN MD;*End*
[2018-09-15] MEDS: DIGOXIN 0.125 MG TAB PO SCH (13:11)
--- NOTE | 2018-09-15 14:27 | PN ---
Date/Time of Note Date/Time of Note DATE: 09/15/18 TIME: 14:26 Assessment/Plan VTE Prophylaxis Risk score (from Ns)>0 risk: 6 SCD applied (from Nsg): Yes Pharmacological prophylaxis: heparin Lines/Catheters IV Catheter Type (from Nrsg): Saline Lock Urinary Cath still in place: No Assessment/Plan Hospital Course Acute on chronic systolic and diastolic heart failure - Continue IV diuresis 2. 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 Peripheral arterial disease Peripheral arterial studies are consistent with peripheral arterial disease Vascular surgery consultation appreciated, patient will need an angiogram but will hold off for now secondary to acute kidney injury 4. Acute kidney injury on CKD likely secondary to diuresis Nephrology consultation obtained Change Lasix 40 mg IV from twice daily to daily 5. Debility with delirium Reorient senior construction project manager to arrange for custodial placement Avoid psychoactive medications 6. Diabetes Continue home meds 7. Hypertension Continue home meds 8. Moderate to severe aortic stenosis Outpatient follow-up 9. History of PE Continue Eliquis Prophylaxis: Eliquis DC planning: Patient not stable for DC, monitor renal function, follow-up with vascular surgery recommendations, patient will ultimately need custodial placement secondary to debility Result Diagram: 09/15/18 0533 09/15/18 0533 Results 24hrs Laboratory Tests Test 09/14/18 17:16 09/14/18 20:39 09/15/18 02:14 09/15/18 05:33 Bedside Glucose 192 227 H 166 White Blood 4.3 L Count Red Blood Count 4.12 L Hemoglobin 9.5 L Hematocrit 31.3 L Mean Corpuscular 76.0 L Volume Mean Corpuscular 23.1 L Hemoglobin Mean Corpuscular 30.4 L Hemoglobin Lu nt Red Cell 17.6 H Distribution Width Platelet Count 186 Mean Platelet 11.9 H Volume Immature 0.200 Granulocytes % Neutrophils % 58.5 Lymphocytes % 22.8 Monocytes % 14.3 H Eosinophils % 3.7 Basophils % 0.5 Nucleated Red 0.0 Blood Cells % Immature 0.010 Granulocytes # Neutrophils # 2.5 Lymphocytes # 1.0 Monocytes # 0.6 Eosinophils # 0.2 Basophils # 0.0 Nucleated Red 0.0 Blood Cells # Sodium Level 139 Potassium Level 4.5 Chloride Level 101 Carbon Dioxide 29 Level Anion Gap 9 Blood Urea 49 H Nitrogen Creatinine 1.49 H Est Glomerular Filtrat Rate mL/min Glucose Level 173 Calcium Level 9.0 Phosphorus Level 3.9 Magnesium Level 2.0 Test 09/15/18 08:02 09/15/18 12:08 Bedside Glucose 187 137 Subjective 24 Hr Interval Summary Free Text/Dictation Remains SOB, on O2 Exam/Review of Systems Vital Signs Vitals Vital Signs Date Temp Pulse Resp B/P (MAP) Pulse Ox O2 O2 Flow FiO2 Time Delivery Rate 09/15/18 68 12:01 09/15/18 98.0 22 143/65 100 Nasal 11:25 (91) Cannula 09/15/18 2.0 08:02 Intake and Output 09/14/18 09/14/18 09/15/18 1515:00 23:00 07:00 IntakeIntake Total 850 ml 400 ml OutputOutput Total 1700 ml 800 ml BalanceBalance -850 ml -400 ml Exam + JVD Comfortable appearing ++ Peripheral edema Medications Medications Current Medications IV Flush (NS 3 ml) 3 ml PER PROTOCOL IV ; Start 09/09/18 at 19:00 Ondansetron HCl (Zofran Inj) 4 mg Q6H PRN IV NAUSEA AND/OR VOMITING; Start 09/09/18 at 19:00 Acetaminophen (Tylenol Tab) 650 mg Q6H PRN PO PAIN LEVEL 1-3 OR FEVER Last administered on 09/15/18at 12:10; Admin Dose 650 MG; Start 09/09/18 at 19:00 Acetaminophen/ Hydrocodone Bitart ([place] (5/325)) 1 tab Q6H PRN PO MODERATE PAIN LEVEL 4-6; Start 09/09/18 at 19:00 Docusate Sodium (Colace) 100 mg Q12H PRN PO CONSTIPATION; Start 09/09/18 at 19:00 Zolpidem Tartrate (Ambien) 5 mg QHS PRN PO SLEEP; Start 09/09/18 at 19:00 Apixaban (Eliquis) 2.5 mg BID PO Last administered on 09/15/18at 08:46; Admin Dose 2.5 MG; Start 09/09/18 at 21:00 Aspirin (Aspirin) 81 mg DAILY PO Last administered on 09/15/18at 08:46; Admin Dose 81 MG; Start 09/10/18 at 09:00 Clotrimazole (Lotrimin Cr) 1 applic BID TOP Last administered on 09/15/18 08:52; Admin Dose 1 APPLIC; Start 09/09/18 at 21:00 Digoxin (Digoxin) 0.125 mg DAILY@13 PO Last administered on 09/15/18 13:11; Admin Dose 0.125 MG; Start 09/10/18 at 13:00 Diltiazem HCl (Cardizem Cd) 120 mg BID PO Last administered on 09/15/18 08:50; Admin Dose 120 MG; Start 09/09/18 at 21:00 Fluticasone/ Vilanterol (Breo Ellipta 100-25 Mcg Inh) 1 inh DAILY INH Last administered on 09/15/18 08:47; Admin Dose 1 INH; Start 09/10/18 at 09:00 Hydralazine HCl (Apresoline) 50 mg Q8 PO Last administered on 09/15/18 13:11; Admin Dose 50 MG; Start 09/09/18 at 22:00 Insulin Aspart (Novolog Insulin Pen) 6 unit WITH BREAKFAST SC Last administered on 09/15/18 08:16; Admin Dose 6 UNIT; Start 09/10/18 at 08:00 Insulin Aspart (Novolog Insulin Pen) 10 unit WITH DINNER SC Last administered on 09/14/18 17:20; Admin Dose 10 UNIT; Start 09/10/18 at 18:00 Insulin Aspart (Novolog Insulin Pen) 10 unit WITH LUNCH SC Last administered on 09/15/18 12:51; Admin Dose 10 UNIT; Start 09/10/18 at 12:00 Linagliptin (Tradjenta) 5 mg DAILY PO Last administered on 09/15/18 08:46; Admin Dose 5 MG; Start 09/10/18 at 09:00 Metoprolol Tartrate (Lopressor) 75 mg BID PO Last administered on 09/15/18 08:50; Admin Dose 75 MG; Start 09/09/18 at 21:00 Tiotropium [place] (Spiriva) 1 inh DAILY INH Last administered on 09/15/18 08:48; Admin Dose 1 INH; Start 09/10/18 at 09:00 Psyllium Hydrophilic Mucilloid (Metamucil) 1 pkt DAILY PO Last administered on 09/15/18 08:44; Admin Dose 1 PKT; Start 09/10/18 at 09:00 Albuterol/ Ipratropium (Duoneb) 3 ml Q4H RESP THERAPY PRN HHN SHORTNESS OF BREATH Last administered on 09/15/18at 07:40; Admin Dose 3 ML; Start 09/09/18 at 19:00 Insulin Aspart (Novolog Insulin Pen) NOVOLOG *MILD* ALGORITHM WITH MEALS BEDTIME SC Last administered on 09/15/18 08:10; Admin Dose 2 UNIT; Start 09/09/18 at 21:00 Miscellaneous Information 1 ea NOTE XX ; Start 09/09/18 at 19:00 Glucose (Glutose) 15 gm Q15M PRN PO DECREASED GLUCOSE; Start 09/09/18 at 19:00 Glucose (Glutose) 22.5 gm Q15M PRN PO DECREASED GLUCOSE; Start 09/09/18 at 19: 00 Dextrose (D50w Syringe) 25 ml Q15M PRN IV DECREASED GLUCOSE; Start 09/09/18 at 19:00 Dextrose (D50w Syringe) 50 ml Q15M PRN IV DECREASED GLUCOSE; Start 09/09/18 at 19:00 Glucagon (Glucagen) 1 mg Q15M PRN IM DECREASED GLUCOSE; Start 09/09/18 at 19:00 Glucose (Glutose) 15 gm Q15M PRN BUCCAL DECREASED GLUCOSE; Start 09/09/18 at 19:00 Miscellaneous Information (Pending [facility] Order For Wound Care) This patient valentino... PRN PRN XX wounds; Start 09/10/18 at 08:00 Insulin Glargine (Lantus) 5 units DAILY SC Last administered on 09/15/18at 09:06; Admin Dose 5 UNITS; Start 09/10/18 at 14:05 Morphine Sulfate (morphine) 6 mg Q4H PRN PO SEVERE PAIN LEVEL 7-10; Start 09/10/18 at 23:00 Sodium Hypochlorite (Dakin'S (Dilute )) 1 applic DAILY IRR Last administered on 09/15/18at 08:53; Admin Dose 1 APPLIC; Start 09/11/18 at 16:00 Ammonium Lactate (Lac-Hydrin 12% Lotion) 1 applic DAILY TOP Last administered on 09/15/18at 08:53; Admin Dose 1 APPLIC; Start 09/11/18 at 16:00 Clotrimazole (Lotrimin Cr) 1 applic BID TOP Last administered on 09/15/18at 08:53; Admin Dose 1 APPLIC; Start 09/11/18 at 21:00 Furosemide (Lasix) 40 mg BID DIURETICS IV ; Start 09/15/18 at 18:00 HARIS GREEN MD Sep 15, 2018 14:26
[2018-09-16] VITALS (11 sets, daily range): BP systolic 116–144; BP diastolic 56–66; PULSE 65–77; RESP 18–22
[2018-09-16] MEDS: FUROSEMIDE 40 MG INJ IV SCH ×2 (06:05→17:30)
[2018-09-16] MEDS: INSULIN ASPART [NOVOLOG] 3 ML PEN SC SCH ×7 (07:48→20:37)
[2018-09-16] MEDS: LINAGLIPTIN 5 MG TABLET PO SCH (08:37)
[2018-09-16] MEDS: PSYLLIUM 28% PACKET PO SCH (08:37)
[2018-09-16] MEDS: METOPROLOL 25 MG TAB PO SCH ×2 (08:38→20:24)
[2018-09-16] MEDS: ASPIRIN 81 MG TAB PO SCH (08:39)
[2018-09-16] MEDS: DILTIAZEM (CD) 120 MG CAP PO SCH ×2 (08:39→22:11)
[2018-09-16] MEDS: APIXABAN 5 MG TABLET PO SCH ×2 (08:39→20:24)
[2018-09-16] MEDS: TIOTROPIUM 18 MCG CAPSULE INHA DEV INH SCH (08:41)
[2018-09-16] MEDS: FLUTICASONE/VILANTEROL 100-25 INH SCH (08:41)
[2018-09-16] MEDS: SODIUM HYPOCHLORITE (1/40) 1 APPLIC BTL IRR SCH (08:43)
[2018-09-16] MEDS: AMMONIUM LACTATE 12% 225 GM LOT TOP SCH (08:43)
[2018-09-16] MEDS: CLOTRIMAZOLE 1% 30 GM CR TOP SCH ×4 (08:43→20:38)
[2018-09-16] MEDS: INSULIN GLARGINE [LANTus] (100 UNITS/ML) SYG SC SCH (08:47)
--- NOTE | 2018-09-16 10:27 | NUR ---
PT NOTE , Therapy day number 4 Subjective Current complaint of pain Pain Scale NUMERIC Pain Intensity 3 (0-10) Patient Stated Goal for Pain Relief 0 (0-10) Pain Level Comment BOTH LEGS Exercise Assessment Label Bilat Lower Extremity Exercise Type Active ROM Additional Exercise Comments IN SEATED POSITION , AP, KNEE FLEX, EXT, LAQ Exercise Start Time 09:30 Exercise End Time 09:42 Total Exercise Time 12 min (8-127) Transfer Sit to Stand Ability Contact Guard Assist Sitting Tolerance 10 min Patient uses wheelchair Not Applicable Gait Training Start Time 09:42 Gait Assist Levels Contact Guard Assist Assistive Devices Front Wheel Walker Additional Gait Comments 10 STEPS X2 WITH 02 2ML/NC . Gait Training End Time 09:55 Total Gait Training Treatment Time 13 min (8-127) Weight Bearing Assessment Label Bilat Lower Extremity Weight Bearing Status Full Weight Bearing Static Sitting Balance Good Dynamic Sitting Balance Good Standing Static Balance Fair plus Dynamic Standing Balance Fair Safety Judgement Fair Activity Tolerance Poor Post Treatment Pain Intensity 3 0-10 Quality Indicators SOB Upon Exertion Variance Documentation P/S SEE PT NOTE . Total Treatment Time 25 min (8-127) Total Minutes 25 Total Units 2 PT Technical Record Comment PT NOTE , RN CLEARED , PATIENT AGREEABLE , PATIENT SITTING UP IN CHAIR). GAIT TR W/FWW PERFORMED ABLE TO TAKE 10 STEPS X2 WITH CGA AND CONSTANT VC'S FOR UPRIGHT POSTURE AND PROPER BREATHING TECHNICS , PATIENT HAS SLOW EH WITH FLEXED TRUNK POSTURE FATIGUES EASILY ALSO NOTED SON WITH EXERTION , PATIENT LEFT UP IN CHAIR , CHAIR ALARM ACTIVATED , VS STABLE , TOLERATED TREATMENT FAIRLY . A: PATIENT WOULD LIKE TO RETURN HOME WITH DAUGHTER ONCE CLEARED BY MD , PT RECOMMEND CONTINUE WITH HH PT FOLLOW UP . P: CONTINUE WITH POC DAILY X5 .
--- NOTE | 2018-09-16 10:32 | PN ---
Date/Time of Note Date/Time of Note DATE: 09/16/18 TIME: 10:31 Assessment/Plan Lines/Catheters IV Catheter Type (from Nrsg): Saline Lock [place] in Place (from Nrsg): No Assessment/Plan Assessment/Plan HISTORY OF PRESENT ILLNESS: This is an 83-year-old female with a history of chronic kidney disease, hypertension, diabetes, admitted because of bilateral leg ulceration. The patient is currently being treated with local wound care, antibiotics and will be having a debridement. Cr 1.54 will need angio when OK by nephrology Subjective 24 Hr Interval Summary Constitutional: improved Pain Control: mild Exam/Review of Systems Vital Signs Vitals Vital Signs Date Temp Pulse Resp B/P (MAP) Pulse Ox O2 O2 Flow FiO2 Time Delivery Rate 09/16/18 72 08:37 09/16/18 Nasal 2.0 08:30 Cannula 09/16/18 98.0 22 138/60 100 07:31 (86) Intake and Output 09/15/18 09/15/18 09/16/18 1515:00 23:00 07:00 IntakeIntake Total 960 ml 500 ml OutputOutput Total 800 ml 800 ml BalanceBalance 160 ml -300 ml Exam Eyes: nl conjunctiva, EOMI, nl lids, nl sclera ENMT: nl external ears & nose, nl lips & teeth, nl nasal mucosa & septum, mucosa pink and moist Neck: supple, non-tender Respiratory: clear to auscultation, normal air movement Cardiovascular: regular rate and rhythm, nl pulses Gastrointestinal: soft, nl liver, spleen, non-tender Results Result Diagram: 09/16/18 0439 09/16/18 0439 RODERICK CURIEL MD Sep 16, 2018 10:32
--- NOTE | 2018-09-16 10:38 | PN ---
Date/Time of Note Date/Time of Note DATE: 09/16/18 TIME: 10:38 Assessment/Plan VTE Prophylaxis Risk score (from Nsg)>0 risk: 6 SCD applied (from Nsg): Yes Pharmacological prophylaxis: heparin Lines/Catheters IV Catheter Type (from Nrsg): Saline Lock Urinary Cath still in place: No Assessment/Plan Hospital Course 83 y/o diabetic female patient who presents to the floor with right lower extremity ulceration. Patient reports that couple days ago she noticed a large blister to her right leg area and it popped resulting with an ulceration. She was admitted for worsening lower extremity swelling and mild shortness of breath over the past several days. In the ER patient's BNP was elevated, ultrasound was negative for DVT. Of note patient does normally ambulates with a walker at home but has been having difficulty doing so due to her lower extremity swelling. Assessment/Plan 1) RLE venous ulceration 2) Venous insufficiency 3) Lymphaedema 4) Tinea pedis 5) Onychomycosis 6) CHF 7) DM2 with peripheral neuropathy Excisional debridement of skin/subQ with pickup and scissors. Fibrotic tissue, biofilm, skin slough, and non-viable tissue was removed. Less than 10cm2 area of debridement. Recommend daily wound irrigation with dakins and dress with xe roform and dry sterile dressings. Recommend daily application of clotrimazole and lac-hydrin of bilateral lower extremities and dress with kerlix and kath compression wrap to assist with edema management. Non-invasive arterial studies revealed: Monophasic waveforms in the bilateral posterior tibial and dorsalis pedis arteries consistent with significant bilateral infrapopliteal stenoses. Normal bilateral ABIs. Appreciate vascular input and angiogram is planned for patient. Medical decisions, treatment, and plan coordinated with Dr. Barrios. Result Diagram: 09/16/18 0439 09/16/18 0439 Results 24hrs Laboratory Tests Test 09/15/18 12:08 09/15/18 17:09 09/15/18 20:48 09/16/18 04:39 Bedside Glucose 137 148 170 White Blood 4.2 L Count Red Blood Count 4.20 Hemoglobin 9.7 L Hematocrit 32.0 L Mean Corpuscular 76.2 L Volume Mean Corpuscular 23.1 L Hemoglobin Mean Corpuscular 30.3 L Hemoglobin Lu nt Red Cell 17.7 H Distribution Width Platelet Count 189 Mean Platelet 11.8 H Volume Immature 0.200 Granulocytes % Neutrophils % 58.3 Lymphocytes % 24.4 Monocytes % 13.5 H Eosinophils % 3.1 Basophils % 0.5 Nucleated Red 0.0 Blood Cells % Immature 0.010 Granulocytes # Neutrophils # 2.5 Lymphocytes # 1.0 Monocytes # 0.6 Eosinophils # 0.1 Basophils # 0.0 Nucleated Red 0.0 Blood Cells # Sodium Level 139 Potassium Level 4.3 Chloride Level 100 Carbon Dioxide 30 Level Anion Gap 9 Blood Urea 54 H Nitrogen Creatinine 1.54 H Est Glomerular Filtrat Rate mL/min Glucose Level 151 Calcium Level 9.1 Phosphorus Level 4.0 Magnesium Level 2.1 Test 09/16/18 07:43 Bedside Glucose 151 Subjective 24 Hr Interval Summary Free Text/Dictation No acute events overnight Exam/Review of Systems Vital Signs Vitals Vital Signs Date Temp Pulse Resp B/P (MAP) Pulse Ox O2 O2 Flow FiO2 Time Delivery Rate 09/16/18 72 08:37 09/16/18 Nasal 2.0 08:30 Cannula 09/16/18 98.0 22 138/60 100 07:31 (86) Intake and Output 09/15/18 09/15/18 09/16/18 1515:00 23:00 07:00 IntakeIntake Total 960 ml 500 ml OutputOutput Total 800 ml 800 ml BalanceBalance 160 ml -300 ml Exam Unable to palpate pedal pulses 2+ pitting edema with cobblestone appearance to bilateral lower extremities Right lateral proximal leg ulcer mixed fibrogranular wound bed measuring 1.5 x 1.4 x 0.2cm. No probing to bone, no proximal streaking appreciated CFT less than 4 seconds to the digits Skin temperature gradient warm to warm from proximal leg to distal feet Mycotic thickened nails mocassin distribution white scaling lesions absent protective sensations to the feet. Medications Medications Current Medications IV Flush (NS 3 ml) 3 ml PER PROTOCOL IV ; Start 09/09/18 at 19:00 Ondansetron HCl (Zofran Inj) 4 mg Q6H PRN IV NAUSEA AND/OR VOMITING; Start 09/09/18 at 19:00 Acetaminophen (Tylenol Tab) 650 mg Q6H PRN PO PAIN LEVEL 1-3 OR FEVER Last administered on 09/15/18at 12:10; Admin Dose 650 MG; Start 09/09/18 at 19:00 Acetaminophen/ Hydrocodone Bitart ([place] (5/325)) 1 tab Q6H PRN PO MODERATE PAIN LEVEL 4-6; Start 09/09/18 at 19:00 Docusate Sodium (Colace) 100 mg Q12H PRN PO CONSTIPATION; Start 09/09/18 at 19:00 Zolpidem Tartrate (Ambien) 5 mg QHS PRN PO SLEEP; Start 09/09/18 at 19:00 Apixaban (Eliquis) 2.5 mg BID PO Last administered on 09/16/18 08:39; Admin Dose 2.5 MG; Start 09/09/18 at 21:00 Aspirin (Aspirin) 81 mg DAILY PO Last administered on 09/16/18 08:39; Admin Dose 81 MG; Start 09/10/18 at 09:00 Clotrimazole (Lotrimin Cr) 1 applic BID TOP Last administered on 09/16/18 08:43; Admin Dose 1 APPLIC; Start 09/09/18 at 21:00 Digoxin (Digoxin) 0.125 mg DAILY@13 PO Last administered on 09/15/18 13:11; Admin Dose 0.125 MG; Start 09/10/18 at 13:00 Diltiazem HCl (Cardizem Cd) 120 mg BID PO Last administered on 09/16/18 08:39 ; Admin Dose 120 MG; Start 09/09/18 at 21:00 Fluticasone/ Vilanterol (Breo Ellipta 100-25 Mcg Inh) 1 inh DAILY INH Last administered on 09/16/18 08:41; Admin Dose 1 INH; Start 09/10/18 at 09:00 Hydralazine HCl (Apresoline) 50 mg Q8 PO Last administered on 09/16/18 06:05; Admin Dose 50 MG; Start 09/09/18 at 22:00 Insulin Aspart (Novolog Insulin Pen) 6 unit WITH BREAKFAST SC Last administ ered on 09/16/18at 07:48; Admin Dose 6 UNIT; Start 09/10/18 at 08:00 Insulin Aspart (Novolog Insulin Pen) 10 unit WITH DINNER SC Last administered on 09/15/18 17:50; Admin Dose 10 UNIT; Start 09/10/18 at 18:00 Insulin Aspart (Novolog Insulin Pen) 10 unit WITH LUNCH SC Last administered on 09/15/18at 12:51; Admin Dose 10 UNIT; Start 09/10/18 at 12:00 Linagliptin (Tradjenta) 5 mg DAILY PO Last administered on 09/16/18at 08:37; Admin Dose 5 MG; Start 09/10/18 at 09:00 Metoprolol Tartrate (Lopressor) 75 mg BID PO Last administered on 09/16/18at 08:38; Admin Dose 75 MG; Start 09/09/18 at 21:00 Tiotropium [place] (Spiriva) 1 inh DAILY INH Last administered on 09/16/18at 08:41; Admin Dose 1 INH; Start 09/10/18 at 09:00 Psyllium Hydrophilic Mucilloid (Metamucil) 1 pkt DAILY PO Last administered on 09/16/18at 08:37; Admin Dose 1 PKT; Start 09/10/18 at 09:00 Albuterol/ Ipratropium (Duoneb) 3 ml Q4H RESP THERAPY PRN HHN SHORTNESS OF BREATH Last administered on 09/15/18at 07:40; Admin Dose 3 ML; Start 09/09/18 at 19:00 Insulin Aspart (Novolog Insulin Pen) NOVOLOG *MILD* ALGORITHM WITH MEALS BEDTIME SC Last administered on 09/16/18at 07:48; Admin Dose 1 UNIT; Start 09/09/18 at 21:00 Miscellaneous Information 1 ea NOTE XX ; Start 09/09/18 at 19:00 Glucose (Glutose) 15 gm Q15M PRN PO DECREASED GLUCOSE; Start 09/09/18 at 19:00 Glucose (Glutose) 22.5 gm Q15M PRN PO DECREASED GLUCOSE; Start 09/09/18 at 19:00 Dextrose (D50w Syringe) 25 ml Q15M PRN IV DECREASED GLUCOSE; Start 09/09/18 at 19:00 Dextrose (D50w Syringe) 50 ml Q15M PRN IV DECREASED GLUCOSE; Start 09/09/18 at 19:00 Glucagon (Glucagen) 1 mg Q15M PRN IM DECREASED GLUCOSE; Start 09/09/18 at 19:00 Glucose (Glutose) 15 gm Q15M PRN BUCCAL DECREASED GLUCOSE; Start 09/09/18 at 19:00 Miscellaneous Information (Pending [facility] Order For Wound Care) This patient valentino... PRN PRN XX wounds; Start 09/10/18 at 08:00 Insulin Glargine (Lantus) 5 units DAILY SC Last administered on 09/16/18at 08:47; Admin Dose 5 UNITS; Start 09/10/18 at 14:05 Morphine Sulfate (morphine) 6 mg Q4H PRN PO SEVERE PAIN LEVEL 7-10; Start 09/10/18 at 23:00 Sodium Hypochlorite (Dakin'S (Dilute )) 1 applic DAILY IRR Last administered on 09/16/18at 08:43; Admin Dose 1 APPLIC; Start 09/11/18 at 16:00 Ammonium Lactate (Lac-Hydrin 12% Lotion) 1 applic DAILY TOP Last administered on 09/16/18at 08:43; Admin Dose 1 APPLIC; Start 09/11/18 at 16:00 Clotrimazole (Lotrimin Cr) 1 applic BID TOP Last administered on 09/16/18at 08:43; Admin Dose 1 APPLIC; Start 09/11/18 at 21:00 Furosemide (Lasix) 40 mg BID DIURETICS IV Last administered on 09/16/18at 06:05; Admin Dose 40 MG; Start 09/15/18 at 18:00 Metolazone (Zaroxolyn) 5 mg DAILY PO ; Start 09/16/18 at 09:30 Ferric Sodium Gluconate Complex 125 mg/Sodium Chloride 110 ml @ 110 mls/hr DAILY@1300 IVPB ; Start 09/16/18 at 13:00; Stop 09/20/18 at 13:59 BASHIR JOHNSON DPM Sep 16, 2018 10:38
--- NOTE | 2018-09-16 12:06 | PN ---
DATE: 09/16/2018 SUBJECTIVE: The patient continues to have shortness of breath. No significant change. Urinary outp ut has been adequate. OBJECTIVE: VITAL SIGNS: Blood pressure is 138/62, respiration 22, pulse 72, temperature 98.0. HEENT: Head is normocephalic. NECK: Supple. HEART: Regular rate. LUNGS: Show diminished breath sounds at the base. ABDOMEN: Soft, nontender to palpation without rebound or guarding. EXTREMITIES: Negative for clubbing, cyanosis. Positive edema, improving. DERMATOLOGIC: No rashes. MUSCULOSKELETAL: No joint effusion. NEUROLOGIC: No change in exam. MEDICATIONS: Reviewed. LABORATORY DATA: Shows sodium 139, potassium 4.3, BUN 54, creatinine 1.54. White count 4.9, hemoglo bin 9.7, platelet count is 189. ASSESSMENT AND PLAN: 1. Nonoliguric acute kidney injury on top of chronic kidney disease with previous baseline creatinin e of 1.3 to 1.4 mg/dL. Etiology of acute kidney injury is secondary to hemodynamics, possible cardio renal syndrome. The patient's renal function has been fluctuating. Diuretics have been adjusted. D iuretics have been adjusted. We will continue current treatment plan, supportive care, renally dose all meds. Continue to monitor renal function closely. 2. Acute hypoxemic respiratory failure secondary to congestive heart failure exacerbation, possible chronic obstructive pulmonary disease, asthma. Continue current medical management. Continue nebuli zers. 3. Anemia. Monitor hemoglobin and hematocrit levels. 4. Mineral bone disorder, monitor calcium and phosphorus levels. 5. Acute on chronic diastolic heart failure. The patient remains decompensated. Continue current d iuretic regimen. 6. Peripheral vascular disease with lower extremity wound. Continue wound care. Follow up with be hoang. 7. Diabetes. Continue current insulin regimen. 8. Hypertension. Continue current blood pressure regimen. 9. Aortic stenosis. Continue medical management. 10. History of pulmonary embolism. Continue Eliquis. 11. Encephalopathy, improving. Continue to monitor. Dictated By: JOCELINE OLEA/NTS Conf#: [id number] DID#: [id number] CC: JABIER SEBASTIAN MD;*EndCC*
[2018-09-16] MEDS: METOLAZONE 5 MG TAB PO SCH (12:56)
--- NOTE | 2018-09-16 13:32 | PN ---
Date/Time of Note Date/Time of Note DATE: 09/16/18 TIME: 13:30 Assessment/Plan VTE Prophylaxis Risk score (from Nsg)>0 risk: 6 SCD applied (from Nsg): Yes Pharmacological prophylaxis: heparin Lines/Catheters IV Catheter Type (from Nrsg): Saline Lock Urinary Cath still in place: No Assessment/Plan Hospital Course Acute on chronic systolic and diastolic heart failure - Continue IV diuresis, add metolazone Chronic right knee wound secondary to peripheral arterial disease - wound care COPD: - Nebs 3. Peripheral arterial disease Peripheral arterial studies are consistent with peripheral arterial disease Vascular surgery consultation appreciated, patient will need an angiogram but will hold off for now secondary to acute kidney injury 4. Acute kidney injury on CKD likely secondary to diuresis Iron deficiency anemia: - IV iron Atrial fibrillation: - ontinue diltiazem and metoproll 9. History of PE Continue Eliquis Prophylaxis: Eliquis DC planning: Patient not stable for DC, monitor renal function, follow-up with vascular surgery recommendations, patient will ultimately need chcf placement secondary to debility Result Diagram: 09/16/18 0439 09/16/18 0439 Results 24hrs Laboratory Tests Test 09/15/18 17:09 09/15/18 20:48 09/16/18 04:39 09/16/18 07:43 Bedside Glucose 148 170 151 White Blood 4.2 L Count Red Blood Count 4.20 Hemoglobin 9.7 L Hematocrit 32.0 L Mean Corpuscular 76.2 L Volume Mean Corpuscular 23.1 L Hemoglobin Mean Corpuscular 30.3 L Hemoglobin Lu nt Red Cell 17.7 H Distribution Width Platelet Count 189 Mean Platelet 11.8 H Volume Immature 0.200 Granulocytes % Neutrophils % 58.3 Lymphocytes % 24.4 Monocytes % 13.5 H Eosinophils % 3.1 Basophils % 0.5 Nucleated Red 0.0 Blood Cells % Immature 0.010 Granulocytes # Neutrophils # 2.5 Lymphocytes # 1.0 Monocytes # 0.6 Eosinophils # 0.1 Basophils # 0.0 Nucleated Red 0.0 Blood Cells # Sodium Level 139 Potassium Level 4.3 Chloride Level 100 Carbon Dioxide 30 Level Anion Gap 9 Blood Urea 54 H Nitrogen Creatinine 1.54 H Est Glomerular Filtrat Rate mL/min Glucose Level 151 Calcium Level 9.1 Phosphorus Level 4.0 Magnesium Level 2.1 Test 09/16/18 12:06 Bedside Glucose 201 Subjective 24 Hr Interval Summary Free Text/Dictation Still wheezing not much diuresis to 40 IV BID Exam/Review of Systems Vital Signs Vitals Vital Signs Date Temp Pulse Resp B/P (MAP) Pulse Ox O2 O2 Flow FiO2 Time Delivery Rate 09/16/18 75 12:07 09/16/18 97.5 22 119/56 100 Nasal 11:00 (77) Cannula 09/16/18 2.0 08:30 Intake and Output 09/15/18 09/15/18 09/16/18 1515:00 23:00 07:00 IntakeIntake Total 960 ml 500 ml OutputOutput Total 800 ml 800 ml BalanceBalance 160 ml -300 ml Exam Comfortable appearing Slight tachypnea + Expiratory wheezing + JVD Abd soft Periperal edema with venous stasis ulcerations Medications Medications Current Medications IV Flush (NS 3 ml) 3 ml PER PROTOCOL IV ; Start 09/09/18 at 19:00 Ondansetron HCl (Zofran Inj) 4 mg Q6H PRN IV NAUSEA AND/OR VOMITING; Start 09/09/18 at 19:00 Acetaminophen (Tylenol Tab) 650 mg Q6H PRN PO PAIN LEVEL 1-3 OR FEVER Last administered on 09/15/18at 12:10; Admin Dose 650 MG; Start 09/09/18 at 19:00 Acetaminophen/ Hydrocodone Bitart ([place] (5/325)) 1 tab Q6H PRN PO MODERATE PAIN LEVEL 4-6; Start 09/09/18 at 19:00 Docusate Sodium (Colace) 100 mg Q12H PRN PO CONSTIPATION; Start 09/09/18 at 19:00 Zolpidem Tartrate (Ambien) 5 mg QHS PRN PO SLEEP; Start 09/09/18 at 19:00 Apixaban (Eliquis) 2.5 mg BID PO Last administered on 09/16/18at 08:39; Admin Dose 2.5 MG; Start 09/09/18 at 21:00 Aspirin (Aspirin) 81 mg DAILY PO Last administered on 09/16/18at 08:39; Admin Dose 81 MG; Start 09/10/18 at 09:00 Clotrimazole (Lotrimin Cr) 1 applic BID TOP Last administered on 09/16/18at 08:43; Admin Dose 1 APPLIC; Start 09/09/18 at 21:00 Digoxin (Digoxin) 0.125 mg DAILY@13 PO Last administered on 09/15/18 13:11; Admin Dose 0.125 MG; Start 09/10/18 at 13:00 Diltiazem HCl (Cardizem Cd) 120 mg BID PO Last administered on 09/16/18 08:39; Admin Dose 120 MG; Start 09/09/18 at 21:00 Fluticasone/ Vilanterol (Breo Ellipta 100-25 Mcg Inh) 1 inh DAILY INH Last administered on 09/16/18 08:41; Admin Dose 1 INH; Start 09/10/18 at 09:00 Hydralazine HCl (Apresoline) 50 mg Q8 PO Last administered on 09/16/18 06:05; Admin Dose 50 MG; Start 09/09/18 at 22:00 Insulin Aspart (Novolog Insulin Pen) 6 unit WITH BREAKFAST SC Last administered on 09/16/18 07:48; Admin Dose 6 UNIT; Start 09/10/18 at 08:00 Insulin Aspart (Novolog Insulin Pen) 10 unit WITH DINNER SC Last administered on 09/15/18 17:50; Admin Dose 10 UNIT; Start 09/10/18 at 18:00 Insulin Aspart (Novolog Insulin Pen) 10 unit WITH LUNCH SC Last administered on 09/16/18 12:52; Admin Dose 10 UNIT; Start 09/10/18 at 12:00 Linagliptin (Tradjenta) 5 mg DAILY PO Last administered on 09/16/18 08:37; Admin Dose 5 MG; Start 09/10/18 at 09:00 Metoprolol Tartrate (Lopressor) 75 mg BID PO Last administered on 09/16/18 08:38; Admin Dose 75 MG; Start 09/09/18 at 21:00 Tiotropium [place] (Spiriva) 1 inh DAILY INH Last administered on 09/16/18 08:41; Admin Dose 1 INH; Start 09/10/18 at 09:00 Psyllium Hydrophilic Mucilloid (Metamucil) 1 pkt DAILY PO Last administered on 09/16/18 08:37; Admin Dose 1 PKT; Start 09/10/18 at 09:00 Albuterol/ Ipratropium (Duoneb) 3 ml Q4H RESP THERAPY PRN HHN SHORTNESS OF BREATH Last administered on 09/15/18at 07:40; Admin Dose 3 ML; Start 09/09/18 at 19:00 Insulin Aspart (Novolog Insulin Pen) NOVOLOG *MILD* ALGORITHM WITH MEALS BEDTIME SC Last administered on 09/16/18at 12:52; Admin Dose 2 UNIT; Start 09/09/18 at 21:00 Miscellaneous Information 1 ea NOTE XX ; Start 09/09/18 at 19:00 Glucose (Glutose) 15 gm Q15M PRN PO DECREASED GLUCOSE; Start 09/09/18 at 19:00 Glucose (Glutose) 22.5 gm Q15M PRN PO DECREASED GLUCOSE; Start 09/09/18 at 19:00 Dextrose (D50w Syringe) 25 ml Q15M PRN IV DECREASED GLUCOSE; Start 09/09/18 at 19:00 Dextrose (D50w Syringe) 50 ml Q15M PRN IV DECREASED GLUCOSE; Start 09/09/18 at 19:00 Glucagon (Glucagen) 1 mg Q15M PRN IM DECREASED GLUCOSE; Start 09/09/18 at 19:00 Glucose (Glutose) 15 gm Q15M PRN BUCCAL DECREASED GLUCOSE; Start 09/09/18 at 19:00 Miscellaneous Information (Pending [facility] Order For Wound Care) This patient valentino... PRN PRN XX wounds; Start 09/10/18 at 08:00 Insulin Glargine (Lantus) 5 units DAILY SC Last administered on 09/16/18at 08:47; Admin Dose 5 UNITS; Start 09/10/18 at 14:05 Morphine Sulfate (morphine) 6 mg Q4H PRN PO SEVERE PAIN LEVEL 7-10; Start 09/10/18 at 23:00 Sodium Hypochlorite (Dakin'S (Dilute )) 1 applic DAILY IRR Last administered on 09/16/18at 08:43; Admin Dose 1 APPLIC; Start 09/11/18 at 16:00 Ammonium Lactate (Lac-Hydrin 12% Lotion) 1 applic DAILY TOP Last administered on 09/16/18at 08:43; Admin Dose 1 APPLIC; Start 09/11/18 at 16:00 Clotrimazole (Lotrimin Cr) 1 applic BID TOP Last administered on 09/16/18at 08:43; Admin Dose 1 APPLIC; Start 09/11/18 at 21:00 Furosemide (Lasix) 40 mg BID DIURETICS IV Last administered on 09/16/18at 06:05; Admin Dose 40 MG; Start 09/15/18 at 18:00 Metolazone (Zaroxolyn) 5 mg DAILY PO Last administered on 09/16/18at 12:56; Admin Dose 5 MG; Start 09/16/18 at 09:30 Ferric Sodium Gluconate Complex 125 mg/Sodium Chloride 110 ml @ 110 mls/hr DAILY@1300 IVPB ; Start 09/16/18 at 13:00; Stop 09/20/18 at 13:59 HARIS GREEN MD Sep 16, 2018 13:32
[2018-09-16] MEDS: ALBUTEROL/IPRATROPIUM (NEB) 3 ML AMP HHN SCH ×2 (14:00→19:43)
[2018-09-16] MEDS: DIGOXIN 0.125 MG TAB PO SCH (14:46)
[2018-09-16] MEDS: SOD FERRIC GLUC COMPLX 125 MG in SOD CHLORIDE 0.9% 100 ML IVPB SCH (14:47)
--- NOTE | 2018-09-16 17:33 | NUR ---
TRANSFER TO [facility] / [facility] PATIENT IS TRANSFERRED TO [facility] IN STABLE CONDITION. VS WNL. AFEBRILE. REPORT GIVEN TO ANITA. PT WILL GO TO RM [id number]. WOUND PICTURES DONE. WOUND TX DONE.
[2018-09-16] MEDS: HYDROCODONE/APAP (5/325) TAB PO PRN (20:25)
[2018-09-17] MEDS: ALBUTEROL/IPRATROPIUM (NEB) 3 ML AMP HHN SCH ×4 (01:32→20:23)
[2018-09-17 02:02] VITALS: BP 133/64; PULSE 72; RESP 18
[2018-09-17] MEDS: FUROSEMIDE 40 MG INJ IV SCH ×2 (06:05→17:50)
--- NOTE | 2018-09-17 06:54 | NUR ---
No event overnight. Medicated once for low back pain last night with good effect. Patient slept well and remain comfortable. Fall risks precautions observed, all needs attended to promptly. Vital signs stable.
[2018-09-17 07:43] VITALS: BP 136/66; PULSE 99; RESP 18
[2018-09-17] MEDS: ASPIRIN 81 MG TAB PO SCH (08:16)
[2018-09-17] MEDS: METOPROLOL 25 MG TAB PO SCH ×2 (08:17→20:14)
[2018-09-17] MEDS: PSYLLIUM 28% PACKET PO SCH (08:17)
[2018-09-17] MEDS: APIXABAN 5 MG TABLET PO SCH ×2 (08:17→20:14)
[2018-09-17] MEDS: DILTIAZEM (CD) 120 MG CAP PO SCH ×2 (08:18→20:14)
[2018-09-17] MEDS: LINAGLIPTIN 5 MG TABLET PO SCH (08:18)
[2018-09-17] MEDS: TIOTROPIUM 18 MCG CAPSULE INHA DEV INH SCH (08:19)
[2018-09-17] MEDS: INSULIN ASPART [NOVOLOG] 3 ML PEN SC SCH ×7 (08:22→20:21)
[2018-09-17] MEDS: INSULIN GLARGINE [LANTus] (100 UNITS/ML) SYG SC SCH (08:24)
[2018-09-17] MEDS: SODIUM HYPOCHLORITE (1/40) 1 APPLIC BTL IRR SCH (08:25)
[2018-09-17] MEDS: CLOTRIMAZOLE 1% 30 GM CR TOP SCH ×3 (08:25→22:32)
[2018-09-17] MEDS: FLUTICASONE/VILANTEROL 100-25 INH SCH (08:26)
[2018-09-17] MEDS: AMMONIUM LACTATE 12% 225 GM LOT TOP SCH (08:27)
[2018-09-17] MEDS: METOLAZONE 5 MG TAB PO SCH (10:17)
--- NOTE | 2018-09-17 10:37 | NUR ---
NUTRITION NOTE: Tolerating PO intake with fair-good appetite, per pt. No n/v/d. LBM 09/16. Encouraged Sarthak BID to promote wound healing, pt acknowledged understanding. RD RECOMMENDATIONS: Rec to add daily MVI and Vit C therapy; zinc sulfate x 14 days.
[2018-09-17] MEDS: HYDROCODONE/APAP (5/325) TAB PO PRN ×2 (13:23→19:59)
[2018-09-17 14:00] VITALS: BP 130/62; PULSE 72; RESP 18
[2018-09-17] MEDS: DIGOXIN 0.125 MG TAB PO SCH (15:47)
--- NOTE | 2018-09-17 16:50 | PN ---
Date/Time of Note Date/Time of Note DATE: 09/17/18 TIME: 16:49 Assessment/Plan VTE Prophylaxis Risk score (from Nsg)>0 risk: 9 SCD applied (from Ns): Yes Pharmacological prophylaxis: heparin Lines/Catheters IV Catheter Type (from Nrsg): Saline Lock Urinary Cath still in place: No Assessment/Plan Hospital Course Acute on chronic systolic and diastolic heart failure - Continue IV diuresis, added metolazone Chronic right knee wound secondary to peripheral arterial disease - wound care COPD: - Nebs 3. Peripheral arterial disease Peripheral arterial studies are consistent with peripheral arterial disease Vascular surgery consultation appreciated, patient will need an angiogram but will hold off for now secondary to acute kidney injury 4. Acute kidney injury on CKD likely secondary to diuresis Iron deficiency anemia: - IV iron Atrial fibrillation: - ontinue diltiazem and metoproll 9. History of PE Continue Eliquis Prophylaxis: Eliquis DC planning: Dc home in when euvolemic Result Diagram: 09/17/18 0503 09/17/18 0503 Results 24hrs Laboratory Tests Test 09/16/18 20:29 09/17/18 02:35 09/17/18 05:03 09/17/18 07:55 Bedside Glucose 200 148 151 White Blood 4.9 Count Red Blood Count 4.09 L Hemoglobin 9.4 L Hematocrit 31.2 L Mean Corpuscular 76.3 L Volume Mean Corpuscular 23.0 L Hemoglobin Mean Corpuscular 30.1 L Hemoglobin Lu nt Red Cell 17.9 H Distribution Width Platelet Count 198 Mean Platelet 11.8 H Volume Immature 0.400 Granulocytes % Neutrophils % 61.7 Lymphocytes % 21.0 Monocytes % 13.2 H Eosinophils % 2.9 Basophils % 0.8 Nucleated Red 0.0 Blood Cells % Immature 0.020 Granulocytes # Neutrophils # 3.0 Lymphocytes # 1.0 Monocytes # 0.7 Eosinophils # 0.1 Basophils # 0.0 Nucleated Red 0.0 Blood Cells # Sodium Level 139 Potassium Level 4.5 Chloride Level 103 Carbon Dioxide 29 Level Anion Gap 7 Blood Urea 54 H Nitrogen Creatinine 1.46 H Est Glomerular Filtrat Rate mL/min Glucose Level 153 Calcium Level 9.1 Phosphorus Level 3.7 Magnesium Level 2.2 Test 09/17/18 12:17 Bedside Glucose 133 Subjective 24 Hr Interval Summary Free Text/Dictation Having pain in her lower back over decubitus Breathign comfortalbe Exam/Review of Systems Vital Signs Vitals Vital Signs Date Temp Pulse Resp B/P (MAP) Pulse Ox O2 O2 Flow FiO2 Time Delivery Rate 09/17/18 84 18 95 21 14:48 09/17/18 97.9 130/62 14:00 (84) 09/17/18 Nasal 2.0 08:00 Cannula Intake and Output 09/16/18 09/16/18 09/17/18 1515:00 23:00 07:00 IntakeIntake Total 228 ml 118 ml BalanceBalance 228 ml 118 ml Exam Comfortable + JVD + Murmur irreg irreg + Peripheral edema Medications Medications Current Medications IV Flush (NS 3 ml) 3 ml PER PROTOCOL IV ; Start 09/09/18 at 19:00 Ondansetron HCl (Zofran Inj) 4 mg Q6H PRN IV NAUSEA AND/OR VOMITING; Start 09/09/18 at 19:00 Acetaminophen (Tylenol Tab) 650 mg Q6H PRN PO PAIN LEVEL 1-3 OR FEVER Last administered on 09/15/18at 12:10; Admin Dose 650 MG; Start 09/09/18 at 19:00 Acetaminophen/ Hydrocodone Bitart ([place] (5/325)) 1 tab Q6H PRN PO MODERATE PAIN LEVEL 4-6 Last administered on 09/17/18at 13:23; Admin Dose 1 TAB; Start 09/09/18 at 19:00 Docusate Sodium (Colace) 100 mg Q12H PRN PO CONSTIPATION; Start 09/09/18 at 19:00 Zolpidem Tartrate (Ambien) 5 mg QHS PRN PO SLEEP; Start 09/09/18 at 19:00 Apixaban (Eliquis) 2.5 mg BID PO Last administered on 09/17/18at 08:17; Admin Dose 2.5 MG; Start 09/09/18 at 21:00 Aspirin (Aspirin) 81 mg DAILY PO Last administered on 09/17/18at 08:16; Admin Dose 81 MG; Start 09/10/18 at 09:00 Clotrimazole (Lotrimin Cr) 1 applic BID TOP Last administered on 09/17/18at 08:25; Admin Dose 1 APPLIC; Start 09/09/18 at 21:00 Digoxin (Digoxin) 0.125 mg DAILY@13 PO Last administered on 09/17/18 15:47; Admin Dose 0.125 MG; Start 09/10/18 at 13:00 Diltiazem HCl (Cardizem Cd) 120 mg BID PO Last administered on 09/17/18 08:18; Admin Dose 120 MG; Start 09/09/18 at 21:00 Fluticasone/ Vilanterol (Breo Ellipta 100-25 Mcg Inh) 1 inh DAILY INH Last administered on 09/17/18 08:26; Admin Dose 1 INH; Start 09/10/18 at 09:00 Hydralazine HCl (Apresoline) 50 mg Q8 PO Last administered on 09/17/18 13:27; Admin Dose 50 MG; Start 09/09/18 at 22:00 Insulin Aspart (Novolog Insulin Pen) 6 unit WITH BREAKFAST SC Last administered on 09/17/18 08:22; Admin Dose 6 UNIT; Start 09/10/18 at 08:00 Insulin Aspart (Novolog Insulin Pen) 10 unit WITH DINNER SC Last administered on 09/15/18 17:50; Admin Dose 10 UNIT; Start 09/10/18 at 18:00 Insulin Aspart (Novolog Insulin Pen) 10 unit WITH LUNCH SC Last administered on 09/17/18 12:18; Admin Dose 10 UNIT; Start 09/10/18 at 12:00 Linagliptin (Tradjenta) 5 mg DAILY PO Last administered on 09/17/18 08:18; Admin Dose 5 MG; Start 09/10/18 at 09:00 Metoprolol Tartrate (Lopressor) 75 mg BID PO Last administered on 09/17/18 08:17; Admin Dose 75 MG; Start 09/09/18 at 21:00 Tiotropium [place] (Spiriva) 1 inh DAILY INH Last administered on 09/17/18 08:19; Admin Dose 1 INH; Start 09/10/18 at 09:00 Psyllium Hydrophilic Mucilloid (Metamucil) 1 pkt DAILY PO Last administered on 09/17/18 08:17; Admin Dose 1 PKT; Start 09/10/18 at 09:00 Insulin Aspart (Novolog Insulin Pen) NOVOLOG *MILD* ALGORITHM WITH MEALS BEDTIME SC Last administered on 09/17/18 08:23; Admin Dose 1 UNIT; Start 09/09/18 at 21:00 Miscellaneous Information 1 ea NOTE XX ; Start 09/09/18 at 19:00 Glucose (Glutose) 15 gm Q15M PRN PO DECREASED GLUCOSE; Start 09/09/18 at 19:00 Glucose (Glutose) 22.5 gm Q15M PRN PO DECREASED GLUCOSE; Start 09/09/18 at 19:00 Dextrose (D50w Syringe) 25 ml Q15M PRN IV DECREASED GLUCOSE; Start 09/09/18 at 19:00 Dextrose (D50w Syringe) 50 ml Q15M PRN IV DECREASED GLUCOSE; Start 09/09/18 at 19:00 Glucagon (Glucagen) 1 mg Q15M PRN IM DECREASED GLUCOSE; Start 09/09/18 at 19:00 Glucose (Glutose) 15 gm Q15M PRN BUCCAL DECREASED GLUCOSE; Start 09/09/18 at 19:00 [facility] This patient valentino... PRN PRN XX wounds; Start 09/10/18 at 08:00 Insulin Glargine (Lantus) 5 units DAILY SC Last administered on 09/17/18at 08:24; Admin Dose 5 UNITS; Start 09/10/18 at 14:05 Morphine Sulfate (morphine) 6 mg Q4H PRN PO SEVERE PAIN LEVEL 7-10; Start 09/10/18 at 23:00 Sodium Hypochlorite (Dakin'S (Dilute 1/40)) 1 applic DAILY IRR Last administered on 09/17/18at 08:25; Admin Dose 1 APPLIC; Start 09/11/18 at 16:00 Ammonium Lactate (Lac-Hydrin 12% Lotion) 1 applic DAILY TOP Last administered on 09/17/18at 08:27; Admin Dose 1 APPLIC; Start 09/11/18 at 16:00 Clotrimazole (Lotrimin Cr) 1 applic BID TOP Last administered on 09/17/18at 08:25; Admin Dose 1 APPLIC; Start 09/11/18 at 21:00 Furosemide (Lasix) 40 mg BID DIURETICS IV Last administered on 09/17/18at 06:05; Admin Dose 40 MG; Start 09/15/18 at 18:00 Metolazone (Zaroxolyn) 5 mg DAILY PO Last administered on 09/17/18at 10:17; Admin Dose 5 MG; Start 09/16/18 at 09:30 Ferric Sodium Gluconate Complex 125 mg/Sodium Chloride 110 ml @ 110 mls/hr DAILY@1300 IVPB Last administered on 09/16/18at 14:47; Admin Dose 110 MLS/HR; Start 09/16/18 at 13:00; Stop 09/20/18 at 13:59 Albuterol/ Ipratropium (Duoneb) 3 ml Q6H RESP THERAPY HHN Last administered on 09/16/18at 19:43; Admin Dose 3 ML; Start 09/16/18 at 14:00 HARIS GREEN MD Sep 17, 2018 16:50
[2018-09-17] MEDS: SOD FERRIC GLUC COMPLX 125 MG in SOD CHLORIDE 0.9% 100 ML IVPB SCH (17:40)
--- NOTE | 2018-09-17 18:44 | NUR ---
END OF SHIFT NOTES: PT STABLE, ALERT & ORIENTED X4. NO DISTRESS NOTED. ACCUCHECKS DONE, INSULIN COVERAGE GIVEN. WOUND CARE DONE. PT ON ROOM AIR, SATURATING AT 97-99%. MONITORED RESPORATORY STATUS CLOSELY. INSTRUCTED PT TO CALL FOR ASSISTANCE. VS WNL.HOURLY ROUNDING. CALL LIGHT WITHIN REACH.ALL NEEDS MET. NO NEW COMPLAINTS.
--- NOTE | 2018-09-17 19:52 | PN ---
Date/Time of Note Date/Time of Note DATE: 09/17/18 TIME: 19:51 Assessment/Plan Lines/Catheters IV Catheter Type (from Nrsg): Saline Lock Soto in Place (from Nrsg): No Assessment/Plan Assessment/Plan HISTORY OF PRESENT ILLNESS: This is an 83-year-old female with a history of chronic kidney disease, hypertension, diabetes, admitted because of bilateral leg ulceration. The patient is currently being treated with local wound care, antibiotics and will be having a debridement. Cr 1.45 will need angio when OK by nephrology Subjective 24 Hr Interval Summary Constitutional: improved Pain Control: mild Exam/Review of Systems Vital Signs Vitals Vital Signs Date Temp Pulse Resp B/P (MAP) Pulse Ox O2 O2 Flow FiO2 Time Delivery Rate 09/17/18 84 18 95 21 14:48 09/17/18 97.9 130/62 14:00 (84) 09/17/18 Nasal 2.0 08:00 Cannula Intake and Output 09/16/18 09/16/18 09/17/18 1515:00 23:00 07:00 IntakeIntake Total 228 ml 118 ml BalanceBalance 228 ml 118 ml Exam Eyes: nl conjunctiva, EOMI, nl lids, nl sclera ENMT: nl external ears & nose, nl lips & teeth, nl nasal mucosa & septum, mucosa pink and moist Neck: supple, non-tender Respiratory: clear to auscultation, normal air movement Gastrointestinal: soft, nl liver, spleen, non-tender Musculoskeletal: nl extremities to inspection, nl gait and stance Results Result Diagram: 09/17/18 0503 09/17/18 0503 RODERICK CURIEL MD Sep 17, 2018 19:52
[2018-09-17 19:55] VITALS: BP 145/67; PULSE 74; RESP 18
[2018-09-18] MEDS: ALBUTEROL/IPRATROPIUM (NEB) 3 ML AMP HHN SCH ×4 (01:06→19:53)
[2018-09-18 01:35] VITALS: BP 136/66; PULSE 80; RESP 18
--- NOTE | 2018-09-18 05:17 | NUR ---
No change in condition. Medicated once on the shift for low back pain with good effect, slept well and remain comfortable. Fall risks precautions observed, assisted with bedside commode use, all needs attended to promptly. Vital signs stable.
[2018-09-18] MEDS: FUROSEMIDE 40 MG INJ IV SCH (06:10)
[2018-09-18 07:50] VITALS: BP 126/70; PULSE 75; RESP 18
--- NOTE | 2018-09-18 07:52 | PN ---
DATE: 09/17/2018 SUBJECTIVE: The patient is stable, no events overnight. The patient continues to have some mild nathaly rtness of breath. OBJECTIVE: VITAL SIGNS: Blood pressure is 136/66, respirations 18, pulse 99, temperature 97.7. HEENT: Head is normocephalic. NECK: Supple. HEART: Regular rate. LUNGS: Show diminished breath sounds at base. ABDOMEN: Soft, nontender to palpation without rebound or guarding. EXTREMITIES: Negative for clubbing, cyanosis. Positive edema. DERMATOLOGIC: No rashes. MUSCULOSKELETAL: No joint effusion. NEUROLOGIC: No change in exam. MEDICATIONS: The patient's medications have been reviewed. LABORATORY DATA: Shows a sodium 139, potassium 4.5, chloride 103, BUN 54, creatinine 1.46. White co unt 4.9, hemoglobin 9.4, platelet count is 198. ASSESSMENT AND PLAN: 1. Nonoliguric acute kidney injury on top of chronic kidney disease with previous baseline creatinin e of 1.3 to 1.4 mg/dL. Etiology of acute kidney injury is secondary to hemodynamics, possible cardio renal syndrome. The patient's renal function has been fluctuating but stable. Continue current diur etic regimen. Continue Lasix, continue Metolazone, monitor closely. 2. Acute hypoxemic respiratory failure secondary to congestive heart failure exacerbation, possible chronic obstructive pulmonary disease. Continue medical management. Continue diuretic therapy. Con tinue nebulizers. 3. Anemia. Monitor hemoglobin and hematocrit levels. 4. Mineral bone disorder, monitor calcium and phosphorus levels. 5. Acute on chronic diastolic heart failure. The patient remains compensated. Continue current diu retic regimen. 6. Peripheral vascular disease with lower extremity wound. . Dictated By: JOCELINE OLEA/MIRTA Conf#: [id number] DID#: [id number] CC: JABIER SEBASTIAN MD;*EndCC*
[2018-09-18] MEDS: INSULIN GLARGINE [LANTus] (100 UNITS/ML) SYG SC SCH (08:41)
[2018-09-18] MEDS: INSULIN ASPART [NOVOLOG] 3 ML PEN SC SCH ×7 (08:42→20:17)
[2018-09-18] MEDS: DILTIAZEM (CD) 120 MG CAP PO SCH ×2 (09:03→20:13)
[2018-09-18] MEDS: ASPIRIN 81 MG TAB PO SCH (09:03)
[2018-09-18] MEDS: LINAGLIPTIN 5 MG TABLET PO SCH (09:03)
[2018-09-18] MEDS: METOLAZONE 5 MG TAB PO SCH (09:03)
[2018-09-18] MEDS: APIXABAN 5 MG TABLET PO SCH ×2 (09:03→20:12)
[2018-09-18] MEDS: METOPROLOL 25 MG TAB PO SCH ×2 (09:03→20:12)
[2018-09-18] MEDS: PSYLLIUM 28% PACKET PO SCH (09:03)
[2018-09-18] MEDS: CLOTRIMAZOLE 1% 30 GM CR TOP SCH ×2 (09:04→20:12)
[2018-09-18] MEDS: FLUTICASONE/VILANTEROL 100-25 INH SCH (09:04)
[2018-09-18] MEDS: TIOTROPIUM 18 MCG CAPSULE INHA DEV INH SCH (09:04)
[2018-09-18] MEDS: AMMONIUM LACTATE 12% 225 GM LOT TOP SCH (09:05)
[2018-09-18] MEDS: SODIUM HYPOCHLORITE (1/40) 1 APPLIC BTL IRR SCH (09:05)
--- NOTE | 2018-09-18 11:15 | NUR ---
PT NOTE Therapy day number 6 Subjective Denies pain Pain Scale NUMERIC Pain Intensity 0 (0-10) Patient Stated Goal for Pain Relief 0 (0-10) Pain Level Comment denies pain Transfer Training Start Time 10:50 Supine to Sit Stand by Assist Transfer Sit to Stand Ability Contact Guard Assist Bed Mobility Sit to Supine Stand by Assist Bed Transfer Ability Contact Guard Assist Chair Transfer Ability Contact Guard Assist Sitting Tolerance 5 min Transfer Training End Time 11:00 Total Transfer Training Time 10 min (8-127) Patient uses wheelchair Not Applicable Gait Training Start Time 11:00 Gait Assist Levels Contact Guard Assist Assistive Devices Front Wheel Walker Ambulation Distance 15 feet Additional Gait Comments flexed posture, wide NATALIE, SOB upon exertion Gait Training End Time 11:15 Total Gait Training Treatment Time 15 min (8-127) Weight Bearing Assessment Label Bilat Lower Extremity Weight Bearing Status Full Weight Bearing Static Sitting Balance Good Dynamic Sitting Balance Good Standing Static Balance Fair plus Dynamic Standing Balance Fair plus Additional Balance Assessments Comments with FWW Safety Judgement Fair Activity Tolerance Poor Post Treatment Pain Intensity 0 0-10 Quality Indicators SOB Upon Exertion Variance Documentation SEE PT NOTE Total Treament Time 25 min (8-127) Total Minutes 25 Total Units 2 PT Technical Record Comment PT NOTE S: Pt initially refused, agreeable after moderate encouragement, reports she is tired O: KAMERON Noriega cleared pt for session. Pt received in room on RA, O2 sats assessed at 90% in supine and 95% sitting at EOB. Pt participated in interventions above. Noted SOB following amb bout, O2 sats reassessed at 81%, increased to >91% following breathing exercises. Pt returned to bed, all needs in reach, no signs of distress. RN notified of pt's status. A: Pt continues to demonstrates low activity tolerance, only able to amb 15' with FWW with SOB and desaturation to 81% following. Able to recovery to >91% O2 sats after ~1 minute. Pt progres: Pt now SBA-CGA level for mobility tasks, limited in ambulation distance to 15-20' maximum due to SOB and dyspnea. D/c recommendation home with family assistance as needed vs post-acute setting. Pt may benefit from home O2, 3:1 commode due to low endurance if discharged home. P: Continue c PT POC.
--- NOTE | 2018-09-18 11:19 | PN ---
DATE: 09/18/2018 SUBJECTIVE: The patient is stable. No events overnight. No fevers, chills, nausea, vomiting. OBJECTIVE: VITAL SIGNS: Blood pressure is 136/66, respiration 19, pulse 80, temperature 98.1. HEENT: Head is normocephalic. NECK: Supple. HEART: Regular rate. LUNGS: Show diminished breath sounds at the base. ABDOMEN: Soft, nontender to palpation without rebound or guarding. EXTREMITIES: Negative for clubbing, cyanosis. Positive edema, improved. DERMATOLOGIC: No rashes. MUSCULOSKELETAL: No joint effusions. NEUROLOGIC: No change in exam. MEDICATIONS: Have been reviewed. LABORATORY DATA: Show sodium 143, potassium 4.3, BUN 27, creatinine 1.13. White count 5.7, hemoglob in 9.4, platelet count is 202. ASSESSMENT AND PLAN: 1. Nonoliguric acute injury on top of chronic kidney disease with previous baseline creatinine of 1. 3 to 1.4 mg/dL. Etiology of acute kidney injury is secondary to hemodynamics, cardiorenal syndrome. The patient's renal function is fluctuating, but nearing baseline. Continue current treatment plans , supportive care, renally dose all medications. 2. Volume overload secondary to diastolic heart failure. Continue current diuretic regimen. We anuel l change IV Lasix to oral Bumex. Continue metolazone. Monitor renal function and electrolytes close ly. 3. Acute hypoxemic respiratory failure secondary to congestive heart failure exacerbation. Continue medical management. Continue diuretic therapy. 4. Anemia. Monitor hemoglobin and hematocrit levels. 5. Mineral bone disorder. Monitor calcium and phosphorus levels. 6. Peripheral vascular disease with lower extremity wound. Continue wound care. Follow up with vas cular surgery. Dictated By: JOCELINE MCCALLUM DO NR/NTS Conf#: [id number] DID#: [id number] CC: HARIS GREEN MD; JABIER SEBASTIAN MD;*End*
[2018-09-18] MEDS: DIGOXIN 0.125 MG TAB PO SCH (12:40)
[2018-09-18] MEDS: SOD FERRIC GLUC COMPLX 125 MG in SOD CHLORIDE 0.9% 100 ML IVPB SCH (12:40)
--- NOTE | 2018-09-18 14:34 | PN ---
Date/Time of Note Date/Time of Note DATE: 09/18/18 TIME: 14:33 Assessment/Plan VTE Prophylaxis Risk score (from Ns)>0 risk: 6 SCD applied (from Ns): Yes Pharmacological prophylaxis: heparin Lines/Catheters IV Catheter Type (from Nrsg): Saline Lock Urinary Cath still in place: No Assessment/Plan Hospital Course Acute on chronic systolic and diastolic heart failure - Continue IV diuresis, added metolazone Chronic right knee wound secondary to peripheral arterial disease - wound care COPD: - Nebs 3. Peripheral arterial disease Peripheral arterial studies are consistent with peripheral arterial disease Vascular surgery consultation appreciated, patient will need an angiogram but will hold off for now secondary to acute kidney injury 4. Acute kidney injury on CKD likely secondary to diuresis Iron deficiency anemia: - IV iron Atrial fibrillation: - ontinue diltiazem and metoproll 9. History of PE Continue Eliquis Prophylaxis: Eliquis DC planning: Dc home in when euvolemic Result Diagram: 09/18/18 0602 09/18/18 0601 Results 24hrs Laboratory Tests Test 09/17/18 17:38 09/17/18 20:20 09/18/18 06:01 09/18/18 06:02 Bedside Glucose 78 147 Sodium Level 140 Potassium Level 4.3 Chloride Level 100 Carbon Dioxide 32 H Level Anion Gap 8 Blood Urea 57 H Nitrogen Creatinine 1.43 H Est Glomerular Filtrat Rate mL/min Glucose Level 163 Calcium Level 9.4 Phosphorus Level 4.0 Magnesium Level 2.3 White Blood 5.7 Count Red Blood Count 4.13 L Hemoglobin 9.4 L Hematocrit 30.4 L Mean Corpuscular 73.6 L Volume Mean Corpuscular 22.8 L Hemoglobin Mean Corpuscular 30.9 L Hemoglobin Lu nt Red Cell 18.2 H Distribution Width Platelet Count 202 Mean Platelet 11.8 H Volume Immature 0.200 Granulocytes % Neutrophils % 68.4 Lymphocytes % 19.6 Monocytes % 9.5 Eosinophils % 2.1 Basophils % 0.2 Nucleated Red 0.0 Blood Cells % Immature 0.010 Granulocytes # Neutrophils # 3.9 Lymphocytes # 1.1 Monocytes # 0.5 Eosinophils # 0.1 Basophils # 0.0 Nucleated Red 0.0 Blood Cells # Test 09/18/18 08:27 09/18/18 12:38 Bedside Glucose 159 216 Subjective 24 Hr Interval Summary Free Text/Dictation Still feels not well enough to return home Breathign comfortably on RA Exam/Review of Systems Vital Signs Vitals Vital Signs Date Temp Pulse Resp B/P (MAP) Pulse Ox O2 O2 Flow FiO2 Time Delivery Rate 09/18/18 77 20 95 21 09:00 09/18/18 98.3 126/70 Room Air 07:50 (88) 09/17/18 2.0 08:00 Intake and Output 09/17/18 09/17/18 09/18/18 1515:00 23:00 07:00 IntakeIntake Total 800 ml 590 ml 480 ml BalanceBalance 800 ml 590 ml 480 ml Medications Medications Current Medications IV Flush (NS 3 ml) 3 ml PER PROTOCOL IV ; Start 09/09/18 at 19:00 Ondansetron HCl (Zofran Inj) 4 mg Q6H PRN IV NAUSEA AND/OR VOMITING; Start 09/09/18 at 19:00 Acetaminophen (Tylenol Tab) 650 mg Q6H PRN PO PAIN LEVEL 1-3 OR FEVER Last administered on 09/15/18at 12:10; Admin Dose 650 MG; Start 09/09/18 at 19:00 Acetaminophen/ Hydrocodone Bitart ([place] (5/325)) 1 tab Q6H PRN PO MODERATE PAIN LEVEL 4-6 Last administered on 09/17/18at 19:59; Admin Dose 1 TAB; Start 09/09/18 at 19:00 Docusate Sodium (Colace) 100 mg Q12H PRN PO CONSTIPATION; Start 09/09/18 at 19:00 Zolpidem Tartrate (Ambien) 5 mg QHS PRN PO SLEEP; Start 09/09/18 at 19:00 Apixaban (Eliquis) 2.5 mg BID PO Last administered on 09/18/18at 09:03; Admin Dose 2.5 MG; Start 09/09/18 at 21:00 Aspirin (Aspirin) 81 mg DAILY PO Last administered on 09/18/18at 09:03; Admin Dose 81 MG; Start 09/10/18 at 09:00 Digoxin (Digoxin) 0.125 mg DAILY@13 PO Last administered on 09/18/18at 12:40; Admin Dose 0.125 MG; Start 09/10/18 at 13:00 Diltiazem HCl (Cardizem Cd) 120 mg BID PO Last administered on 09/18/18 09:03; Admin Dose 120 MG; Start 09/09/18 at 21:00 Fluticasone/ Vilanterol (Breo Ellipta 100-25 Mcg Inh) 1 inh DAILY INH Last administered on 09/18/18 09:04; Admin Dose 1 INH; Start 09/10/18 at 09:00 Hydralazine HCl (Apresoline) 50 mg Q8 PO Last administered on 09/18/18 06:10; Admin Dose 50 MG; Start 09/09/18 at 22:00 Insulin Aspart (Novolog Insulin Pen) 6 unit WITH BREAKFAST SC Last administered on 09/18/18 08:42; Admin Dose 6 UNIT; Start 09/10/18 at 08:00 Insulin Aspart (Novolog Insulin Pen) 10 unit WITH DINNER SC Last administered on 09/17/18 17:50; Admin Dose 10 UNIT; Start 09/10/18 at 18:00 Insulin Aspart (Novolog Insulin Pen) 10 unit WITH LUNCH SC Last administered on 09/18/18 13:07; Admin Dose 10 UNIT; Start 09/10/18 at 12:00 Linagliptin (Tradjenta) 5 mg DAILY PO Last administered on 09/18/18 09:03; Admin Dose 5 MG; Start 09/10/18 at 09:00 Metoprolol Tartrate (Lopressor) 75 mg BID PO Last administered on 09/18/18 09:03; Admin Dose 75 MG; Start 09/09/18 at 21:00 Tiotropium [place] (Spiriva) 1 inh DAILY INH Last administered on 09/18/18 09:04; Admin Dose 1 INH; Start 09/10/18 at 09:00 Psyllium Hydrophilic Mucilloid (Metamucil) 1 pkt DAILY PO Last administered on 09/18/18 09:03; Admin Dose 1 PKT; Start 09/10/18 at 09:00 Insulin Aspart (Novolog Insulin Pen) NOVOLOG *MILD* ALGORITHM WITH MEALS BEDTIME SC Last administered on 09/18/18 13:08; Admin Dose 2 UNIT; Start 09/09/18 at 21:00 Miscellaneous Information 1 ea NOTE XX ; Start 09/09/18 at 19:00 Glucose (Glutose) 15 gm Q15M PRN PO DECREASED GLUCOSE; Start 09/09/18 at 19:00 Glucose (Glutose) 22.5 gm Q15M PRN PO DECREASED GLUCOSE; Start 09/09/18 at 1 9:00 Dextrose (D50w Syringe) 25 ml Q15M PRN IV DECREASED GLUCOSE; Start 09/09/18 at 19:00 Dextrose (D50w Syringe) 50 ml Q15M PRN IV DECREASED GLUCOSE; Start 09/09/18 at 19:00 Glucagon (Glucagen) 1 mg Q15M PRN IM DECREASED GLUCOSE; Start 09/09/18 at 19:00 Glucose (Glutose) 15 gm Q15M PRN BUCCAL DECREASED GLUCOSE; Start 09/09/18 at 19:00 [facility] This patient valentino... PRN PRN XX wounds; Start 09/10/18 at 08:00 Insulin Glargine (Lantus) 5 units DAILY SC Last administered on 09/18/18at 08:41; Admin Dose 5 UNITS; Start 09/10/18 at 14:05 Morphine Sulfate (morphine) 6 mg Q4H PRN PO SEVERE PAIN LEVEL 7-10; Start 09/10/18 at 23:00 Sodium Hypochlorite (Dakin'S (Dilute )) 1 applic DAILY IRR Last administered on 09/18/18at 09:05; Admin Dose 1 APPLIC; Start 09/11/18 at 16:00 Ammonium Lactate (Lac-Hydrin 12% Lotion) 1 applic DAILY TOP Last administered on 09/18/18at 09:05; Admin Dose 1 APPLIC; Start 09/11/18 at 16:00 Clotrimazole (Lotrimin Cr) 1 applic BID TOP Last administered on 09/18/18at 09:04; Admin Dose 1 APPLIC; Start 09/11/18 at 21:00 Metolazone (Zaroxolyn) 5 mg DAILY PO Last administered on 09/18/18at 09:03; Ad min Dose 5 MG; Start 09/16/18 at 09:30 Ferric Sodium Gluconate Complex 125 mg/Sodium Chloride 110 ml @ 110 mls/hr DAILY@1300 IVPB Last administered on 09/18/18at 12:40; Admin Dose 110 MLS/HR; Start 09/16/18 at 13:00; Stop 09/20/18 at 13:59 Albuterol/ Ipratropium (Duoneb) 3 ml Q6H RESP THERAPY HHN Last administered on 09/18/18at 09:00; Admin Dose 3 ML; Start 09/16/18 at 14:00 Bumetanide (Bumex) 1 mg BID DIURETICS PO ; Start 09/18/18 at 18:00 HARIS GREEN MD Sep 18, 2018 14:34
--- NOTE | 2018-09-18 14:37 | PN ---
Date/Time of Note Date/Time of Note DATE: 09/18/18 TIME: 14:36 Assessment/Plan Lines/Catheters IV Catheter Type (from Nrsg): Saline Lock S[place] in Place (from Nrsg): No Assessment/Plan Assessment/Plan HISTORY OF PRESENT ILLNESS: This is an 83-year-old female with a history of chronic kidney disease, hypertension, diabetes, admitted because of bilateral leg ulceration. The patient is currently being treated with local wound care, antibiotics and will be having a debridement. Cr 1.43 Possibly next week will need angio when OK by nephrology Subjective 24 Hr Interval Summary Constitutional: improved Pain Control: mild Exam/Review of Systems Vital Signs Vitals Vital Signs Date Temp Pulse Resp B/P (MAP) Pulse Ox O2 O2 Flow FiO2 Time Delivery Rate 09/18/18 77 20 95 21 09:00 09/18/18 98.3 126/70 Room Air 07:50 (88) 09/17/18 2.0 08:00 Intake and Output 09/17/18 09/17/18 09/18/18 1515:00 23:00 07:00 IntakeIntake Total 800 ml 590 ml 480 ml BalanceBalance 800 ml 590 ml 480 ml Exam Eyes: nl conjunctiva, EOMI, nl lids, nl sclera ENMT: nl external ears & nose, nl lips & teeth, nl nasal mucosa & septum, mucosa pink and moist Neck: supple, non-tender Respiratory: clear to auscultation, normal air movement Cardiovascular: regular rate and rhythm, nl pulses Musculoskeletal: nl extremities to inspection, nl gait and stance Results Result Diagram: 09/18/18 0602 09/18/18 0601 RODERICK CURIEL MD Sep 18, 2018 14:37
[2018-09-18 16:24] VITALS: BP 133/60; PULSE 63; RESP 22
[2018-09-18] MEDS: BUMETANIDE 1 MG TAB PO SCH (17:44)
[2018-09-18] MEDS: HYDROCODONE/APAP (5/325) TAB PO PRN (17:44)
--- NOTE | 2018-09-18 18:41 | NUR ---
END OF SHIFT NOTES: PT STABLE, ALERT & ORIENTED X4. NO DISTRESS NOTED. DRESSING CHANGE PER ORDER, PT OUT OF BED TO COMMODE, AMBULATED WITH PT, INSTRUCTED PT TO CALL FOR ASSISTANCE. VS WNL.HOURLY ROUNDING. CALL LIGHT WITHIN REACH.ALL NEEDS MET. NO NEW COMPLAINTS.
[2018-09-18 20:12] VITALS: BP 124/59; PULSE 71; RESP 20
[2018-09-19] MEDS: HYDROCODONE/APAP (5/325) TAB PO PRN ×2 (01:33→22:14)
[2018-09-19 01:38] VITALS: BP 126/60; PULSE 71; RESP 18
[2018-09-19] MEDS: ALBUTEROL/IPRATROPIUM (NEB) 3 ML AMP HHN SCH ×4 (01:44→19:32)
--- NOTE | 2018-09-19 04:22 | NUR ---
PT AWAKE AND ALERT,ABLE TO MAKE NEEDS KNOWN. BLOOD GLUCOSE CONTROLLED.PROVIDED SNACKS NEEDED. DRESSING OVER BLE, DRY AND INTACT. ABLE TO TRANSFER FROM BED TO BSC WITH MINIMAL ASSISTANCE;STILL INFORMED PT TO CALL FOR HELP T PREVENT FALL-AMENABLE. PROVIDED ASSISTANCE. CALL LIGHT WITHIN REACH.
[2018-09-19] MEDS: BUMETANIDE 1 MG TAB PO SCH ×2 (06:54→18:00)
--- NOTE | 2018-09-19 07:19 | PN ---
Date/Time of Note Date/Time of Note DATE: 09/19/18 TIME: 07:18 Assessment/Plan VTE Prophylaxis Risk score (from Nsg)>0 risk: 5 SCD applied (from Nsg): Yes Pharmacological prophylaxis: other Lines/Catheters IV Catheter Type (from Nrsg): Saline Lock Urinary Cath still in place: No Assessment/Plan Hospital Course renal follow up SUBJECTIVE: The patient is stable. No events overnight. No fevers, chills, nausea, vomiting. OBJECTIVE: HEENT: Head is normocephalic. NECK: Supple. HEART: Regular rate. LUNGS: Show diminished breath sounds at the base. ABDOMEN: Soft, nontender to palpation without rebound or guarding. EXTREMITIES: Negative for clubbing, cyanosis. Positive edema, improved. DERMATOLOGIC: No rashes. MUSCULOSKELETAL: No joint effusions. NEUROLOGIC: No change in exam. MEDICATIONS: Have been reviewed. ASSESSMENT AND PLAN: 1. Nonoliguric acute injury on top of chronic kidney disease with previous baseline creatinine of 1.3 to 1.4 mg/dL. Etiology of acute kidney injury is secondary to hemodynamics, cardiorenal syndrome. The patient's renal function is fluctuating, but nearing baseline. will hold metolozone. continue bumex, supportive care, renally dose all medications. 2. Volume overload secondary to diastolic heart failure. dc metolazone. Monitor renal function and electrolytes closely. 3. Acute hypoxemic respiratory failure secondary to congestive heart failure exacerbation. Continue medical management. Continue diuretic therapy. 4. Anemia. Monitor hemoglobin and hematocrit levels. 5. Mineral bone disorder. Monitor calcium and phosphorus levels. 6. Peripheral vascular disease with lower extremity wound. Continue wound ca re. Follow up with vascular surgery. Result Diagram: 09/19/18 0502 09/19/18 0502 Results 24hrs Laboratory Tests Test 09/18/18 08:27 09/18/18 12:38 09/18/18 17:39 09/18/18 20:10 Bedside Glucose 159 216 147 73 Test 09/19/18 05:02 White Blood 5.4 Count Red Blood Count 3.93 L Hemoglobin 9.1 L Hematocrit 29.0 L Mean Corpuscular 73.8 L Volume Mean Corpuscular 23.2 L Hemoglobin Mean Corpuscular 31.4 L Hemoglobin Lu nt Red Cell 18.3 H Distribution Width Platelet Count 190 Mean Platelet 12.1 H Volume Immature 0.600 H Granulocytes % Neutrophils % 65.3 Lymphocytes % 21.0 Monocytes % 10.3 Eosinophils % 2.4 Basophils % 0.4 Nucleated Red 0.0 Blood Cells % Immature 0.030 Granulocytes # Neutrophils # 3.5 Lymphocytes # 1.1 Monocytes # 0.6 Eosinophils # 0.1 Basophils # 0.0 Nucleated Red 0.0 Blood Cells # Sodium Level 140 Potassium Level 4.4 Chloride Level 97 Carbon Dioxide 33 H Level Anion Gap 10 Blood Urea 65 H Nitrogen Creatinine 1.52 H Est Glomerular Filtrat Rate mL/min Glucose Level 110 # Calcium Level 9.5 Phosphorus Level 4.6 Magnesium Level 2.2 Exam/Review of Systems Vital Signs Vitals Vital Signs Date Temp Pulse Resp B/P (MAP) Pulse Ox O2 O2 Flow FiO2 Time Delivery Rate 09/19/18 70 20 93 21 01:44 09/19/18 97.9 126/60 01:38 (82) 09/18/18 Room Air 07:50 09/17/18 2.0 08:00 Intake and Output 09/18/18 09/18/18 09/19/18 1515:00 23:00 07:00 IntakeIntake Total 930 ml 860 ml 360 ml BalanceBalance 930 ml 860 ml 360 ml Medications Medications Current Medications IV Flush (NS 3 ml) 3 ml PER PROTOCOL IV ; Start 09/09/18 at 19:00 Ondansetron HCl (Zofran Inj) 4 mg Q6H PRN IV NAUSEA AND/OR VOMITING; Start 09/09/18 at 19:00 Acetaminophen (Tylenol Tab) 650 mg Q6H PRN PO PAIN LEVEL 1-3 OR FEVER Last administered on 09/15/18at 12:10; Admin Dose 650 MG; Start 09/09/18 at 19:00 Acetaminophen/ Hydrocodone Bitart ([place] (5/325)) 1 tab Q6H PRN PO MODERATE PAIN LEVEL 4-6 Last administered on 09/19/18at 01:33; Admin Dose 1 TAB; Start 09/09/18 at 19:00 Docusate Sodium (Colace) 100 mg Q12H PRN PO CONSTIPATION; Start 09/09/18 at 19:00 Zolpidem Tartrate (Ambien) 5 mg QHS PRN PO SLEEP; Start 09/09/18 at 19:00 Apixaban (Eliquis) 2.5 mg BID PO Last administered on 09/18/18 20:12; Admin Dose 2.5 MG; Start 09/09/18 at 21:00 Aspirin (Aspirin) 81 mg DAILY PO Last administered on 09/18/18 09:03; Admin Dose 81 MG; Start 09/10/18 at 09:00 Digoxin (Digoxin) 0.125 mg DAILY@13 PO Last administered on 09/18/18 12:40; Admin Dose 0.125 MG; Start 09/10/18 at 13:00 Diltiazem HCl (Cardizem Cd) 120 mg BID PO Last administered on 09/18/18 20:13; Admin Dose 120 MG; Start 09/09/18 at 21:00 Fluticasone/ Vilanterol (Breo Ellipta 100-25 Mcg Inh) 1 inh DAILY INH Last administered on 09/18/18 09:04; Admin Dose 1 INH; Start 09/10/18 at 09:00 Hydralazine HCl (Apresoline) 50 mg Q8 PO Last administered on 09/19/18 00:31; Admin Dose 50 MG; Start 09/09/18 at 22:00 Insulin Aspart (Novolog Insulin Pen) 6 unit WITH BREAKFAST SC Last administered on 09/18/18 08:42; Admin Dose 6 UNIT; Start 09/10/18 at 08:00 Insulin Aspart (Novolog Insulin Pen) 10 unit WITH DINNER SC Last administered on 09/18/18 17:58; Admin Dose 10 UNIT; Start 09/10/18 at 18:00 Insulin Aspart (Novolog Insulin Pen) 10 unit WITH LUNCH SC Last administered on 09/18/18 13:07; Admin Dose 10 UNIT; Start 09/10/18 at 12:00 Linagliptin (Tradjenta) 5 mg DAILY PO Last administered on 09/18/18 09:03; Admin Dose 5 MG; Start 09/10/18 at 09:00 Metoprolol Tartrate (Lopressor) 75 mg BID PO Last administered on 09/18/18 20:12; Admin Dose 75 MG; Start 09/09/18 at 21:00 Tiotropium [place] (Spiriva) 1 inh DAILY INH Last administered on 09/18/18 09:04; Admin Dose 1 INH; Start 09/10/18 at 09:00 Psyllium Hydrophilic Mucilloid (Metamucil) 1 pkt DAILY PO Last administered on 09/18/18at 09:03; Admin Dose 1 PKT; Start 09/10/18 at 09:00 Insulin Aspart (Novolog Insulin Pen) NOVOLOG *MILD* ALGORITHM WITH MEALS BEDTIME SC Last administered on 09/18/18at 17:58; Admin Dose 1 UNIT; Start 09/09/18 at 21:00 Miscellaneous Information 1 ea NOTE XX ; Start 09/09/18 at 19:00 Glucose (Glutose) 15 gm Q15M PRN PO DECREASED GLUCOSE; Start 09/09/18 at 19:00 Glucose (Glutose) 22.5 gm Q15M PRN PO DECREASED GLUCOSE; Start 09/09/18 at 19:00 Dextrose (D50w Syringe) 25 ml Q15M PRN IV DECREASED GLUCOSE; Start 09/09/18 at 19:00 Dextrose (D50w Syringe) 50 ml Q15M PRN IV DECREASED GLUCOSE; Start 09/09/18 at 19:00 Glucagon (Glucagen) 1 mg Q15M PRN IM DECREASED GLUCOSE; Start 09/09/18 at 19:00 Glucose (Glutose) 15 gm Q15M PRN BUCCAL DECREASED GLUCOSE; Start 09/09/18 at 19:00 Miscellaneous Information (Pending [facility] Order For Wound Care) This patient valentino... PRN PRN XX wounds; Start 09/10/18 at 08:00 Insulin Glargine (Lantus) 5 units DAILY SC Last administered on 09/18/18at 08:41; Admin Dose 5 UNITS; Start 09/10/18 at 14:05 Morphine Sulfate (morphine) 6 mg Q4H PRN PO SEVERE PAIN LEVEL 7-10; Start 09/10/18 at 23:00 Sodium Hypochlorite ([place] (Dilute 140)) 1 applic DAILY IRR Last administered on 09/18/18at 09:05; Admin Dose 1 APPLIC; Start 09/11/18 at 16:00 Ammonium Lactate (Lac-Hydrin 12% Lotion) 1 applic DAILY TOP Last administered on 09/18/18at 09:05; Admin Dose 1 APPLIC; Start 09/11/18 at 16:00 Clotrimazole (Lotrimin Cr) 1 applic BID TOP Last administered on 09/18/18at 20:12; Admin Dose 1 APPLIC; Start 09/11/18 at 21:00 Metolazone (Zaroxolyn) 5 mg DAILY PO Last administered on 09/18/18at 09:03; Admin Dose 5 MG; Start 09/16/18 at 09:30 Ferric Sodium Gluconate Complex 125 mg/Sodium Chloride 110 ml @ 110 mls/hr DAILY@1300 IVPB Last administered on 09/18/18at 12:40; Admin Dose 110 MLS/HR; Start 09/16/18 at 13:00; Stop 09/20/18 at 13:59 Albuterol/ Ipratropium (Duoneb) 3 ml Q6H RESP THERAPY HHN Last administered on 09/19/18at 01:44; Admin Dose 3 ML; Start 09/16/18 at 14:00 Bumetanide (Bumex) 1 mg BID DIURETICS PO Last administered on 09/19/18at 06 :54; Admin Dose 1 MG; Start 09/18/18 at 18:00 COURTNEY TAY DO Sep 19, 2018 07:19
[2018-09-19 07:25] VITALS: BP 122/60; PULSE 70; RESP 16
[2018-09-19] MEDS: INSULIN ASPART [NOVOLOG] 3 ML PEN SC SCH ×7 (08:00→20:13)
[2018-09-19] MEDS: CLOTRIMAZOLE 1% 30 GM CR TOP SCH ×2 (08:17→20:18)
[2018-09-19] MEDS: BALSAM PERU/CASTOR OIL 60 GM TUBE TOP SCH (08:18)
[2018-09-19] MEDS: PSYLLIUM 28% PACKET PO SCH (08:20)
[2018-09-19] MEDS: INSULIN GLARGINE [LANTus] (100 UNITS/ML) SYG SC SCH (08:20)
[2018-09-19] MEDS: ASPIRIN 81 MG TAB PO SCH (08:20)
[2018-09-19] MEDS: METOPROLOL 25 MG TAB PO SCH ×2 (08:20→20:15)
[2018-09-19] MEDS: AMMONIUM LACTATE 12% 225 GM LOT TOP SCH (08:21)
[2018-09-19] MEDS: TIOTROPIUM 18 MCG CAPSULE INHA DEV INH SCH (08:21)
[2018-09-19] MEDS: SODIUM HYPOCHLORITE (1/40) 1 APPLIC BTL IRR SCH (08:21)
[2018-09-19] MEDS: APIXABAN 5 MG TABLET PO SCH ×2 (08:21→20:16)
[2018-09-19] MEDS: FLUTICASONE/VILANTEROL 100-25 INH SCH (08:21)
[2018-09-19] MEDS: DILTIAZEM (CD) 120 MG CAP PO SCH ×2 (08:21→20:17)
[2018-09-19] MEDS: LINAGLIPTIN 5 MG TABLET PO SCH (08:21)
--- NOTE | 2018-09-19 11:21 | NUR ---
09/19/18 . AF. SECOND IM LETTER ISSUED AND SIGNED BY PATIENT . COPY PROVIDED TO PATIENT & ORIGINAL LEFT ON THE CHART .
--- NOTE | 2018-09-19 13:06 | PN ---
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 Peripheral arterial disease Peripheral arterial studies are consistent with peripheral arterial disease Vascular surgery consultation appreciated, patient will need an angiogram but will hold off for now secondary to acute kidney injury 4. Acute kidney injury on CKD likely secondary to diuresis Iron deficiency anemia: - IV iron Atrial fibrillation: - ontinue diltiazem and metoproll 9. History of PE Continue Eliquis Prophylaxis: Eliquis DC planning: Dc home tomorrow Result Diagram: 09/19/18 0502 09/19/18 0502 Results 24hrs Laboratory Tests Test 09/18/18 17:39 09/18/18 20:10 09/19/18 05:02 09/19/18 08:12 Bedside Glucose 147 73 114 White Blood 5.4 Count Red Blood Count 3.93 L Hemoglobin 9.1 L Hematocrit 29.0 L Mean Corpuscular 73.8 L Volume Mean Corpuscular 23.2 L Hemoglobin Mean Corpuscular 31.4 L Hemoglobin Lu nt Red Cell 18.3 H Distribution Width Platelet Count 190 Mean Platelet 12.1 H Volume Immature 0.600 H Granulocytes % Neutrophils % 65.3 Lymphocytes % 21.0 Monocytes % 10.3 Eosinophils % 2.4 Basophils % 0.4 Nucleated Red 0.0 Blood Cells % Immature 0.030 Granulocytes # Neutrophils # 3.5 Lymphocytes # 1.1 Monocytes # 0.6 Eosinophils # 0.1 Basophils # 0.0 Nucleated Red 0.0 Blood Cells # Sodium Level 140 Potassium Level 4.4 Chloride Level 97 Carbon Dioxide 33 H Level Anion Gap 10 Blood Urea 65 H Nitrogen Creatinine 1.52 H Est Glomerular Filtrat Rate mL/min Glucose Level 110 # Calcium Level 9.5 Phosphorus Level 4.6 Magnesium Level 2.2 Test 09/19/18 12:40 Bedside Glucose 169 Subjective 24 Hr Interval Summary Free Text/Dictation Off of oxygen, volume status much improved Refusing to go home today. Says she "doesn't feel right" though can't give me anymore detail. Seems to be scared fo leaving healthcare setting Exam/Review of Systems Vital Signs Vitals Vital Signs Date Temp Pulse Resp B/P (MAP) Pulse Ox O2 O2 Flow FiO2 Time Delivery Rate 09/19/18 71 20 94 21 08:02 09/19/18 98.3 122/60 Room Air 07:25 (80) 09/17/18 2.0 08:00 Intake and Output 09/18/18 09/18/18 09/19/18 1515:00 23:00 07:00 IntakeIntake Total 930 ml 860 ml 360 ml BalanceBalance 930 ml 860 ml 360 ml Exam Constitutional: alert, oriented, well developed Psych: no complaints, nl mood/affect Head: normocephalic, atraumatic Eyes: nl conjunctiva, EOMI, nl lids, nl sclera, PERRL ENMT: nl external ears & nose, nl lips & teeth, nl nasal mucosa & septum Neck: supple, non-tender Respiratory: clear to auscultation, normal air movement Cardiovascular: regular rate and rhythm, nl pulses Gastrointestinal: soft, nl liver, spleen, non-tender Musculoskeletal: nl extremities to inspection, nl gait and stance Extremities: normal pulses 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, nl mental status, nl speech, nl strength Skin: nl turgor; No rash or lesions Lymph: nl lymph nodes Medications Medications Current Medications IV Flush (NS 3 ml) 3 ml PER PROTOCOL IV ; Start 09/09/18 at 19:00 Ondansetron HCl (Zofran Inj) 4 mg Q6H PRN IV NAUSEA AND/OR VOMITING; Start 09/09/18 at 19:00 Acetaminophen (Tylenol Tab) 650 mg Q6H PRN PO PAIN LEVEL 1-3 OR FEVER Last administered on 09/15/18at 12:10; Admin Dose 650 MG; Start 09/09/18 at 19:00 Acetaminophen/ Hydrocodone Bitart ([place] (5/325)) 1 tab Q6H PRN PO MODERATE PAIN LEVEL 4-6 Last administered on 09/19/18at 01:33; Admin Dose 1 TAB; Start 09/09/18 at 19:00 Docusate Sodium (Colace) 100 mg Q12H PRN PO CONSTIPATION; Start 09/09/18 at 19:00 Zolpidem Tartrate (Ambien) 5 mg QHS PRN PO SLEEP; Start 09/09/18 at 19:00 Apixaban (Eliquis) 2.5 mg BID PO Last administered on 09/19/18 08:21; Admin Dose 2.5 MG; Start 09/09/18 at 21:00 Aspirin (Aspirin) 81 mg DAILY PO Last administered on 09/19/18 08:20; Admin Dose 81 MG; Start 09/10/18 at 09:00 Digoxin (Digoxin) 0.125 mg DAILY@13 PO Last administered on 09/18/18 12:40; Admin Dose 0.125 MG; Start 09/10/18 at 13:00 Diltiazem HCl (Cardizem Cd) 120 mg BID PO Last administered on 09/19/18 08:21; Admin Dose 120 MG; Start 09/09/18 at 21:00 Fluticasone/ Vilanterol (Breo Ellipta 100-25 Mcg Inh) 1 inh DAILY INH Last administered on 09/19/18 08:21; Admin Dose 1 INH; Start 09/10/18 at 09:00 Hydralazine HCl (Apresoline) 50 mg Q8 PO Last administered on 09/19/18 00:31; Admin Dose 50 MG; Start 09/09/18 at 22:00 Insulin Aspart (Novolog Insulin Pen) 6 unit WITH BREAKFAST SC Last administered on 09/19/18 08:18; Admin Dose 6 UNIT; Start 09/10/18 at 08:00 Insulin Aspart (Novolog Insulin Pen) 10 unit WITH DINNER SC Last administered on 09/18/18 17:58; Admin Dose 10 UNIT; Start 09/10/18 at 18:00 Insulin Aspart (Novolog Insulin Pen) 10 unit WITH LUNCH SC Last administered on 09/19/18 12:50; Admin Dose 10 UNIT; Start 09/10/18 at 12:00 Linagliptin (Tradjenta) 5 mg DAILY PO Last administered on 09/19/18 08:21; Admin Dose 5 MG; Start 09/10/18 at 09:00 Metoprolol Tartrate (Lopressor) 75 mg BID PO Last administered on 12/29/18at 08:20; Admin Dose 75 MG; Start 09/09/18 at 21:00 Tiotropium [place] (Spiriva) 1 inh DAILY INH Last administered on 09/19/18at 08:21; Admin Dose 1 INH; Start 09/10/18 at 09:00 Psyllium Hydrophilic Mucilloid (Metamucil) 1 pkt DAILY PO Last administered on 09/19/18 08:20; Admin Dose 1 PKT; Start 09/10/18 at 09:00 Insulin Aspart (Novolog Insulin Pen) NOVOLOG *MILD* ALGORITHM WITH MEALS BEDTIME SC Last administered on 09/19/18at 12:49; Admin Dose 1 UNIT; Start 09/09/18 at 21:00 Miscellaneous Information 1 ea NOTE XX ; Start 09/09/18 at 19:00 Glucose (Glutose) 15 gm Q15M PRN PO DECREASED GLUCOSE; Start 09/09/18 at 19:00 Glucose (Glutose) 22.5 gm Q15M PRN PO DECREASED GLUCOSE; Start 09/09/18 at 19:00 Dextrose (D50w Syringe) 25 ml Q15M PRN IV DECREASED GLUCOSE; Start 09/09/18 at 19:00 Dextrose (D50w Syringe) 50 ml Q15M PRN IV DECREASED GLUCOSE; Start 09/09/18 at 19:00 Glucagon (Glucagen) 1 mg Q15M PRN IM DECREASED GLUCOSE; Start 09/09/18 at 19:00 Glucose (Glutose) 15 gm Q15M PRN BUCCAL DECREASED GLUCOSE; Start 09/09/18 at 19:00 Miscellaneous Information (Pending [facility] Order For Wound Care) This patient valentino... PRN PRN XX wounds; Start 09/10/18 at 08:00 Insulin Glargine (Lantus) 5 units DAILY SC Last administered on 09/19/18at 08:20; Admin Dose 5 UNITS; Start 09/10/18 at 14:05 Morphine Sulfate (morphine) 6 mg Q4H PRN PO SEVERE PAIN LEVEL 7-10; Start 09/10/18 at 23:00 Sodium Hypochlorite (Dakin'S (Dilute 1/40)) 1 applic DAILY IRR Last administered on 09/19/18at 08:21; Admin Dose 1 APPLIC; Start 09/11/18 at 16:00 Ammonium Lactate (Lac-Hydrin 12% Lotion) 1 applic DAILY TOP Last administered on 09/19/18 08:21; Admin Dose 1 APPLIC; Start 09/11/18 at 16:00 Clotrimazole (Lotrimin Cr) 1 applic BID TOP Last administered on 09/19/18 08:17; Admin Dose 1 APPLIC; Start 09/11/18 at 21:00 Ferric Sodium Gluconate Complex 125 mg/Sodium Chloride 110 ml @ 110 mls/hr DAILY@1300 IVPB Last administered on 09/18/18at 12:40; Admin Dose 110 MLS/HR; Start 09/16/18 at 13:00; Stop 09/20/18 at 13:59 Albuterol/ Ipratropium (Duoneb) 3 ml Q6H RESP THERAPY HHN Last administered on 09/19/18 08:02; Admin Dose 3 ML; Start 09/16/18 at 14:00 Bumetanide (Bumex) 1 mg BID DIURETICS PO Last administered on 09/19/18 06:54; Admin Dose 1 MG; Start 09/18/18 at 18:00 HARIS GREEN MD Sep 19, 2018 13:06
[2018-09-19 13:52] VITALS: BP 132/59; PULSE 68; RESP 18
--- NOTE | 2018-09-19 15:11 | PN ---
Date/Time of Note Date/Time of Note DATE: 09/19/18 TIME: 15:10 Assessment/Plan Lines/Catheters IV Catheter Type (from Nrsg): Saline Lock [place] in Place (from Nrsg): No Assessment/Plan Assessment/Plan HISTORY OF PRESENT ILLNESS: This is an 83-year-old female with a history of chronic kidney disease, hypertension, diabetes, admitted because of bilateral leg ulceration. The patient is currently being treated with local wound care, antibiotics and will be having a debridement. Cr 1.52 Possibly next week will need angio when OK by nephrology Subjective 24 Hr Interval Summary Constitutional: improved Pain Control: mild Exam/Review of Systems Vital Signs Vitals Vital Signs Date Temp Pulse Resp B/P (MAP) Pulse Ox O2 O2 Flow FiO2 Time Delivery Rate 09/19/18 98.1 68 18 132/59 98 Room Air 13:52 (83) 09/19/18 21 08:02 09/17/18 2.0 08:00 Intake and Output 09/18/18 09/18/18 09/19/18 1515:00 23:00 07:00 IntakeIntake Total 930 ml 860 ml 360 ml BalanceBalance 930 ml 860 ml 360 ml Exam ENMT: nl external ears & nose, nl lips & teeth, nl nasal mucosa & septum, mucosa pink and moist Neck: supple, non-tender Respiratory: clear to auscultation, normal air movement Cardiovascular: regular rate and rhythm, nl pulses Results Result Diagram: 09/19/18 0502 09/19/18 0502 RODERICK CURIEL MD Sep 19, 2018 15:11
[2018-09-19] MEDS: DIGOXIN 0.125 MG TAB PO SCH (15:34)
[2018-09-19] MEDS: SOD FERRIC GLUC COMPLX 125 MG in SOD CHLORIDE 0.9% 100 ML IVPB SCH (15:34)
--- NOTE | 2018-09-19 19:00 | NUR ---
END OF SHIFT NOTES: PT STABLE, ALERT & ORIENTED X4. NO DISTRESS NOTED. INSTRUCTED PT TO CALL FOR ASSISTANCE. VS WNL.HOURLY ROUNDING. CALL LIGHT WITHIN REACH.ALL NEEDS MET. NO NEW COMPLAINTS
[2018-09-19 19:54] VITALS: BP 139/63; PULSE 71; RESP 18
[2018-09-20] MEDS: ALBUTEROL/IPRATROPIUM (NEB) 3 ML AMP HHN SCH ×4 (01:29→19:12)
[2018-09-20 02:09] VITALS: BP 116/54; PULSE 71; RESP 18
[2018-09-20] MEDS: HYDROCODONE/APAP (5/325) TAB PO PRN ×2 (06:06→21:18)
--- NOTE | 2018-09-20 06:35 | NUR ---
Shift Summary Patient alert and oriented X 4 during shift. Was treated twice for pain with [place]. Pt reported pain in her lower back. All due medications given except Bumex, which is currently pending from pharmacy. Patient often got up to the bedside commode without calling during shift. Bed alarm on and answered immediately. Hourly rounding continued. Call light within reach. Reinforced the need to call for help before getting up. Will endorse care to next shift.
[2018-09-20 08:07] VITALS: BP 118/56; PULSE 84; RESP 16
[2018-09-20] MEDS: INSULIN ASPART [NOVOLOG] 3 ML PEN SC SCH ×7 (08:21→21:00)
[2018-09-20] MEDS: INSULIN GLARGINE [LANTus] (100 UNITS/ML) SYG SC SCH (08:22)
[2018-09-20] MEDS: PSYLLIUM 28% PACKET PO SCH (09:00)
[2018-09-20] MEDS: FLUTICASONE/VILANTEROL 100-25 INH SCH (09:10)
[2018-09-20] MEDS: TIOTROPIUM 18 MCG CAPSULE INHA DEV INH SCH (09:10)
[2018-09-20] MEDS: METOPROLOL 25 MG TAB PO SCH ×2 (09:11→21:19)
[2018-09-20] MEDS: APIXABAN 5 MG TABLET PO SCH ×2 (09:11→21:19)
[2018-09-20] MEDS: DILTIAZEM (CD) 120 MG CAP PO SCH ×2 (09:11→22:28)
[2018-09-20] MEDS: LINAGLIPTIN 5 MG TABLET PO SCH (09:12)
[2018-09-20] MEDS: ASPIRIN 81 MG TAB PO SCH (09:12)
[2018-09-20] MEDS: SODIUM HYPOCHLORITE (1/40) 1 APPLIC BTL IRR SCH (09:13)
[2018-09-20] MEDS: BALSAM PERU/CASTOR OIL 60 GM TUBE TOP SCH (09:13)
[2018-09-20] MEDS: CLOTRIMAZOLE 1% 30 GM CR TOP SCH ×2 (09:13→22:27)
[2018-09-20] MEDS: AMMONIUM LACTATE 12% 225 GM LOT TOP SCH (09:13)
[2018-09-20] MEDS: BUMETANIDE 1 MG TAB PO SCH ×2 (09:17→17:44)
--- NOTE | 2018-09-20 09:21 | PN ---
Date/Time of Note Date/Time of Note DATE: 09/20/18 TIME: 09:21 Assessment/Plan VTE Prophylaxis Risk score (from Ns)>0 risk: 7 SCD applied (from Ns): Yes Pharmacological prophylaxis: other Lines/Catheters IV Catheter Type (from Nrsg): Saline Lock Urinary Cath still in place: No Assessment/Plan Hospital Course renal follow up SUBJECTIVE: The patient is stable. No events overnight. No fevers, chills, nausea, vomiting. OBJECTIVE: HEENT: Head is normocephalic. NECK: Supple. HEART: Regular rate. LUNGS: Show diminished breath sounds at the base. ABDOMEN: Soft, nontender to palpation without rebound or guarding. EXTREMITIES: Negative for clubbing, cyanosis. Positive edema, improved. DERMATOLOGIC: No rashes. MUSCULOSKELETAL: No joint effusions. NEUROLOGIC: No change in exam. MEDICATIONS: Have been reviewed. ASSESSMENT AND PLAN: 1. Nonoliguric acute injury on top of chronic kidney disease with previous baseline creatinine of 1.3 to 1.4 mg/dL. Etiology of acute kidney injury is secondary to hemodynamics, cardiorenal syndrome. The patient's renal function is fluctuating, but nearing baseline. will hold metolozone. continue bumex, supportive care, renally dose all medications. 2. Volume overload secondary to diastolic heart failure. dc metolazone. Monitor renal function and electrolytes closely. 3. Acute hypoxemic respiratory failure secondary to congestive heart failure exacerbation. Continue medical management. Continue diuretic therapy. 4. Anemia. Monitor hemoglobin and hematocrit levels. 5. Mineral bone disorder. Monitor calcium and phosphorus levels. 6. Peripheral vascular disease with lower extremity wound. Continue wound ca re. Follow up with vascular surgery. Result Diagram: 09/19/18 0502 09/19/18 0502 Results 24hrs Laboratory Tests Test 09/19/18 12:40 09/19/18 17:36 09/19/18 20:11 09/20/18 07:55 Bedside Glucose 169 75 123 183 Exam/Review of Systems Vital Signs Vitals Vital Signs Date Temp Pulse Resp B/P (MAP) Pulse Ox O2 O2 Flow FiO2 Time Delivery Rate 09/20/18 97.9 84 16 118/56 97 08:07 (76) 09/20/18 21 01:29 09/19/18 20:00 Intake and Output 09/19/18 09/19/18 09/20/18 1515:00 23:00 07:00 IntakeIntake Total 360 ml 470 ml 400 ml OutputOutput Total 800 ml BalanceBalance 360 ml 470 ml -400 ml Medications Medications Current Medications IV Flush (NS 3 ml) 3 ml PER PROTOCOL IV ; Start 09/09/18 at 19:00 Ondansetron HCl (Zofran Inj) 4 mg Q6H PRN IV NAUSEA AND/OR VOMITING; Start 09/09/18 at 19:00 Acetaminophen (Tylenol Tab) 650 mg Q6H PRN PO PAIN LEVEL 1-3 OR FEVER Last administered on 09/15/18 12:10; Admin Dose 650 MG; Start 09/09/18 at 19:00 Acetaminophen/ Hydrocodone Bitart ([place] (5/325)) 1 tab Q6H PRN PO MODERATE PAIN LEVEL 4-6 Last administered on 09/20/18 06:06; Admin Dose 1 TAB; Start 09/09/18 at 19:00 Docusate Sodium (Colace) 100 mg Q12H PRN PO CONSTIPATION; Start 09/09/18 at 19:00 Zolpidem Tartrate (Ambien) 5 mg QHS PRN PO SLEEP; Start 09/09/18 at 19:00 Apixaban (Eliquis) 2.5 mg BID PO Last administered on 09/20/18 09:11; Admin Dose 2.5 MG; Start 09/09/18 at 21:00 Aspirin (Aspirin) 81 mg DAILY PO Last administered on 09/20/18 09:12; Admin Dose 81 MG; Start 09/10/18 at 09:00 Digoxin (Digoxin) 0.125 mg DAILY@13 PO Last administered on 09/19/18at 15:34; Admin Dose 0.125 MG; Start 09/10/18 at 13:00 Diltiazem HCl (Cardizem Cd) 120 mg BID PO Last administered on 09/20/18 09:11; Admin Dose 120 MG; Start 09/09/18 at 21:00 Fluticasone/ Vilanterol (Breo Ellipta 100-25 Mcg Inh) 1 inh DAILY INH Last administered on 09/20/18 09:10; Admin Dose 1 INH; Start 09/10/18 at 09:00 Hydralazine HCl (Apresoline) 50 mg Q8 PO Last administered on 09/20/18 06:07; Admin Dose 50 MG; Start 09/09/18 at 22:00 Insulin Aspart (Novolog Insulin Pen) 6 unit WITH BREAKFAST SC Last administered on 09/20/18 08:21; Admin Dose 6 UNIT; Start 09/10/18 at 08:00 Insulin Aspart (Novolog Insulin Pen) 10 unit WITH DINNER SC Last administered on 09/18/18at 17:58; Admin Dose 10 UNIT; Start 09/10/18 at 18:00 Insulin Aspart (Novolog Insulin Pen) 10 unit WITH LUNCH SC Last administered on 09/19/18 12:50; Admin Dose 10 UNIT; Start 09/10/18 at 12:00 Linagliptin (Tradjenta) 5 mg DAILY PO Last administered on 09/20/18 09:12; Admin Dose 5 MG; Start 09/10/18 at 09:00 Metoprolol Tartrate (Lopressor) 75 mg BID PO Last administered on 09/20/18 09:11; Admin Dose 75 MG; Start 09/09/18 at 21:00 Tiotropium [place] (Spiriva) 1 inh DAILY INH Last administered on 09/20/18 09:10; Admin Dose 1 INH; Start 09/10/18 at 09:00 Psyllium Hydrophilic Mucilloid (Metamucil) 1 pkt DAILY PO Last administered on 09/19/18 08:20; Admin Dose 1 PKT; Start 09/10/18 at 09:00 Insulin Aspart (Novolog Insulin Pen) NOVOLOG *MILD* ALGORITHM WITH MEALS BEDTIME SC Last administered on 09/20/18 08:22; Admin Dose 2 UNIT; Start 09/09/18 at 21:00 Miscellaneous Information 1 ea NOTE XX ; Start 09/09/18 at 19:00 Glucose (Glutose) 15 gm Q15M PRN PO DECREASED GLUCOSE; Start 09/09/18 at 19:00 Glucose (Glutose) 22.5 gm Q15M PRN PO DECREASED GLUCOSE; Start 09/09/18 at 19:00 Dextrose (D50w Syringe) 25 ml Q15M PRN IV DECREASED GLUCOSE; Start 09/09/18 at 19:00 Dextrose (D50w Syringe) 50 ml Q15M PRN IV DECREASED GLUCOSE; Start 09/09/18 at 19:00 Glucagon (Glucagen) 1 mg Q15M PRN IM DECREASED GLUCOSE; Start 09/09/18 at 19:00 Glucose (Glutose) 15 gm Q15M PRN BUCCAL DECREASED GLUCOSE; Start 09/09/18 at 19:00 Miscellaneous Information (Pending [facility] Order For Wound Care) This patient valentino... PRN PRN XX wounds; Start 09/10/18 at 08:00 Insulin Glargine (Lantus) 5 units DAILY SC Last administered on 09/20/18 08:22; Admin Dose 5 UNITS; Start 09/10/18 at 14:05 Morphine Sulfate (morphine) 6 mg Q4H PRN PO SEVERE PAIN LEVEL 7-10; Start 09/10/18 at 23:00 Sodium Hypochlorite ([place]akin'S (Dilute 40)) 1 applic DAILY IRR Last administe red on 09/20/18 09:13; Admin Dose 1 APPLIC; Start 09/11/18 at 16:00 Ammonium Lactate (Lac-Hydrin 12% Lotion) 1 applic DAILY TOP Last administered on 09/20/18 09:13; Admin Dose 1 APPLIC; Start 09/11/18 at 16:00 Clotrimazole (Lotrimin Cr) 1 applic BID TOP Last administered on 09/20/18 09:13; Admin Dose 1 APPLIC; Start 09/11/18 at 21:00 Ferric Sodium Gluconate Complex 125 mg/Sodium Chloride 110 ml @ 110 mls/hr DAILY@1300 IVPB Last administered on 09/19/18at 15:34; Admin Dose 110 MLS/HR; Start 09/16/18 at 13:00; Stop 09/20/18 at 13:59 Albuterol/ Ipratropium (Duoneb) 3 ml Q6H RESP THERAPY HHN Last administered on 09/20/18 01:29; Admin Dose 3 ML; Start 09/16/18 at 14:00 Bumetanide (Bumex) 1 mg BID DIURETICS PO Last administered on 09/20/18 09:17; Admin Dose 1 MG; Start 09/18/18 at 18:00 COURTNEY TAY DO Sep 20, 2018 09:21
[2018-09-20] MEDS: DIGOXIN 0.125 MG TAB PO SCH (13:14)
[2018-09-20] MEDS: SOD FERRIC GLUC COMPLX 125 MG in SOD CHLORIDE 0.9% 100 ML IVPB SCH (14:02)
--- NOTE | 2018-09-20 14:47 | DS ---
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 fib, right lower extremity blister, diabetes, hypertension, obesity, CKD, PE. Patient presents with worsening lower extremity swelling and mild shortness of breath over the past several days. In the ER patient's BNP was elevated, ultrasound was negative for DVT. Of note patient does normally ambulates with a walker at home but has been having difficulty doing so due to her lower extremity swelling. She was given IV diuretics and over the week her volume status improved markedly. She did not require any oxygen and was breathing comfortably. She is being discharge to continue diuretics and local wound care as an outpatient Home Meds Active Scripts Furosemide* (Furosemide*) 40 Mg Tablet, 40 MG PO DAILY, #30 TAB Prov:DAVID RAUSCH NP 08/09/18 Clotrimazole* (Lotrimin*) 1%-30 Gm Cream..g., 1 APPLIC TOP BID, #1 TUB Please apply to the right lower extremity wound twice daily. Prov:DAVID RAUSCH NP 08/09/18 Insulin Glargine,Hum.rec.anlog (Basaglar Kwikpen U-100) 100 Unit/1 Ml Insuln.pen, 5 UNIT SC DAILY for 30 Days, #1 EA Prov:RAMIRO MORRIS MD 04/05/18 Linagliptin (TRADJENTA) 5 Mg Tablet, 5 MG PO DAILY for 30 Days, #30 TAB Prov:RAMIRO MORRIS MD 04/05/18 Insulin Aspart* (Novolog Insulin Pen*) 100 Unit/Ml Soln, 10 UNIT SC WITH LUNCH for 30 Days, #1 EA Prov:RAMIRO MORRIS MD 04/05/18 Insulin Aspart* (Novolog Insulin Pen*) 100 Unit/Ml Soln, 10 UNIT SC WITH DINNER for 30 Days, #1 EA Prov:RAMIRO MORRIS MD 04/05/18 Insulin Aspart* (Novolog Insulin Pen*) 100 Unit/Ml Soln, 6 UNIT SC WITH BREAKFAST for 30 Days, #1 EA Prov:RAMIRO MORRIS MD 04/05/18 Fluticasone-Vilanterol (Breo Ellipta Inhaler) 100-25 Mcg/Actuation Aer.pow.ba, 1 INH INH DAILY for 30 Days, #1 EA Prov:RAMIRO MORRIS MD 04/05/18 Aspirin (Aspirin) 81 Mg Chew, 81 MG PO DAILY for 30 Days, #30 TAB Prov:RAMIRO MORRIS MD 04/05/18 Metoprolol Tartrate* (Lopressor*) 25 Mg Tab, 75 MG PO BID for 30 Days, #60 TAB Prov:RAMIRO MORRIS MD 04/05/18 Hydralazine Hcl* (Apresoline*) 50 Mg Tab, 50 MG PO Q8 for 30 Days, #90 TAB Prov:RAMIRO MORRIS MD 04/05/18 Diltiazem Hcl* (Cardizem CD*) 120 Mg Cap.sr.24h, 120 MG PO BID for 30 Days, #60 TAB Prov:RAMIRO MORRIS MD 04/05/18 Apixaban* (Eliquis*) 5 Mg Tablet, 2.5 MG PO BID for 30 Days, #60 TAB Prov:RAMIRO MORRIS MD 04/05/18 Tiotropium [place]* (Spiriva*) 18 Mcg Cap.w.dev, 1 INH INH DAILY for 30 Days, #30 CAP Prov:RAMIRO MORRIS MD 04/05/18 Psyllium Husk (Metamucil) 0.52 Gm Capsule, 0.52 GM PO DAILY for 30 Days, #30 CAP Prov:RAMIRO MORRIS MD 04/19/17 Digoxin* (Digitek*) 0.125 Mg Tab, 0.125 MG PO DAILY@13, #30 3 Refills Prov:DALLAS PICKETT 03/22/15 Reported Medications Albuterol Sulfate* (Proair HFA*) 8.5 Gm Hfa.aer.ad, 2 PUFF INH Q6H PRN for WHEEZING AND SOB, INH 03/16/15 Omeprazole* (Omeprazole*) 20 Mg Capsule.dr, 20 MG PO DAILY, CAP 03/16/15 Primary Care Provider Gordy Nunez DO Pending Labs Laboratory Tests Test 09/19/18 17:36 09/19/18 20:11 09/20/18 07:55 09/20/18 12:35 Bedside 75 123 183 268 Glucose mg/dL (70-220) mg/dL (70-220) mg/dL (70-220) mg/dL (70-220) HARIS GREEN MD Sep 20, 2018 14:47
--- NOTE | 2018-09-20 14:57 | NUR ---
Pt c/o swelling to lt hand, on exam noted moderated amt of pitting edema noted to lt hand, also swelling with previously documented to her lt arm, elevated lt arm on 2 pillows and will monitor. No c/o pain noted.
[2018-09-20 15:45] VITALS: BP 114/64; RESP 19
--- NOTE | 2018-09-20 18:32 | PN ---
Date/Time of Note Date/Time of Note DATE: 09/20/18 TIME: 18:32 Assessment/Plan Lines/Catheters IV Catheter Type (from Nrsg): Saline Lock Soto in Place (from Nrsg): No Assessment/Plan Assessment/Plan HISTORY OF PRESENT ILLNESS: This is an 83-year-old female with a history of chronic kidney disease, hypertension, diabetes, admitted because of bilateral leg ulceration. The patient is currently being treated with local wound care, antibiotics and will be having a debridement. Cr 1.52 Possibly next week will need angio when OK by nephrology Subjective 24 Hr Interval Summary Constitutional: improved Pain Control: mild Exam/Review of Systems Vital Signs Vitals Vital Signs Date Temp Pulse Resp B/P (MAP) Pulse Ox O2 O2 Flow FiO2 Time Delivery Rate 09/20/18 98.6 19 114/64 96 15:45 (81) 09/20/18 Nasal 2.0 14:18 Cannula 09/20/18 66 13:41 09/20/18 21 01:29 Intake and Output 09/19/18 09/19/18 09/20/18 1515:00 23:00 07:00 IntakeIntake Total 360 ml 470 ml 400 ml OutputOutput Total 800 ml BalanceBalance 360 ml 470 ml -400 ml Exam Eyes: nl conjunctiva, EOMI, nl lids, nl sclera ENMT: nl external ears & nose, nl lips & teeth, nl nasal mucosa & septum, mucosa pink and moist Neck: supple, non-tender Respiratory: clear to auscultation, normal air movement Cardiovascular: regular rate and rhythm, nl pulses Gastrointestinal: soft, nl liver, spleen, non-tender Results Result Diagram: 09/19/18 0502 09/19/18 0502 RODERICK CURIEL MD Sep 20, 2018 18:32
[2018-09-20 20:19] VITALS: BP 131/63; PULSE 73; RESP 18
[2018-09-21] MEDS: ALBUTEROL/IPRATROPIUM (NEB) 3 ML AMP HHN SCH ×2 (01:16→08:00)
[2018-09-21 01:41] VITALS: BP 99/63; PULSE 66; RESP 17
[2018-09-21] MEDS: BUMETANIDE 1 MG TAB PO SCH (05:27)
--- NOTE | 2018-09-21 06:15 | NUR ---
SHIFT NOTES: PATIENT SLEPT ON AND OFF.NO RESP. DISTRESS NOTED.ASSISTED TO THE COMMODE NEEDED. PATIENT'S BED ALARM ON FOR SAFETY. HOURLY ROUNDING DONE. MEDICATED FOR PAIN WITH NORCO.
[2018-09-21 07:54] VITALS: BP 125/74; PULSE 72; RESP 22
[2018-09-21] MEDS: INSULIN ASPART [NOVOLOG] 3 ML PEN SC SCH ×4 (08:00→13:13)
[2018-09-21] MEDS: INSULIN GLARGINE [LANTus] (100 UNITS/ML) SYG SC SCH (08:01)
[2018-09-21] MEDS: PSYLLIUM 28% PACKET PO SCH (08:16)
[2018-09-21] MEDS: DILTIAZEM (CD) 120 MG CAP PO SCH (08:16)
[2018-09-21] MEDS: APIXABAN 5 MG TABLET PO SCH (08:17)
[2018-09-21] MEDS: HYDROCODONE/APAP (5/325) TAB PO PRN ×2 (08:17→14:25)
[2018-09-21] MEDS: ASPIRIN 81 MG TAB PO SCH (08:17)
[2018-09-21] MEDS: LINAGLIPTIN 5 MG TABLET PO SCH (08:17)
[2018-09-21] MEDS: METOPROLOL 25 MG TAB PO SCH (08:17)
[2018-09-21] MEDS: CLOTRIMAZOLE 1% 30 GM CR TOP SCH (08:18)
[2018-09-21] MEDS: FLUTICASONE/VILANTEROL 100-25 INH SCH (08:18)
[2018-09-21] MEDS: AMMONIUM LACTATE 12% 225 GM LOT TOP SCH (08:19)
[2018-09-21] MEDS: SODIUM HYPOCHLORITE (1/40) 1 APPLIC BTL IRR SCH (08:19)
[2018-09-21] MEDS: BALSAM PERU/CASTOR OIL 60 GM TUBE TOP SCH ×2 (08:19→09:00)
--- NOTE | 2018-09-21 10:08 | NUR ---
CM NOTE: CARLOS Spoke with Fiordaliza from [facility] ([phone]) and informed of d/c today with SOC tomorrow 09/22/2018. Robert Huff RN CM [id number]
[2018-09-21] MEDS: TIOTROPIUM 18 MCG CAPSULE INHA DEV INH SCH (10:19)
--- NOTE | 2018-09-21 10:40 | PN ---
Date/Time of Note Date/Time of Note DATE: 09/21/18 TIME: 10:39 Assessment/Plan Lines/Catheters IV Catheter Type (from [facility]): Peripheral IV Soto in Place (from [facility]): No Assessment/Plan Assessment/Plan HISTORY OF PRESENT ILLNESS: This is an 83-year-old female with a history of chronic kidney disease, hypertension, diabetes, admitted because of bilateral leg ulceration. The patient is currently being treated with local wound care, antibiotics and will be having a debridement. Cr 1.67 Worsening of the renal failure will need angio when OK by nephrology Subjective 24 Hr Interval Summary Constitutional: improved Exam/Review of Systems Vital Signs Vitals Vital Signs Date Temp Pulse Resp B/P (MAP) Pulse Ox O2 O2 Flow FiO2 Time Delivery Rate 09/21/18 2.0 08:37 09/21/18 98.2 72 22 125/74 99 07:54 (91) 09/21/18 Nasal 01:17 Cannula 09/20/18 21 01:29 Intake and Output 09/20/18 09/20/18 09/21/18 1515:00 23:00 07:00 IntakeIntake Total 1200 ml 860 ml 480 ml OutputOutput Total 150 ml BalanceBalance 1050 ml 860 ml 480 ml Exam ENMT: nl external ears & nose, nl lips & teeth, nl nasal mucosa & septum, mucosa pink and moist Neck: supple, non-tender Respiratory: clear to auscultation, normal air movement Cardiovascular: regular rate and rhythm, nl pulses Gastrointestinal: soft, nl liver, spleen, non-tender Musculoskeletal: nl extremities to inspection, nl gait and stance Results Result Diagram: 09/19/18 0502 09/21/18 0917 RODERICK CURIEL MD Sep 21, 2018 10:40
--- NOTE | 2018-09-21 10:41 | PN ---
DATE: 09/21/2018 SUBJECTIVE: The patient is stable, no events overnight. No fevers, chills, nausea, or vomiting. OBJECTIVE: VITAL SIGNS: Blood pressure is 125/74, respirations 22, pulse 72, temperature 98.2. HEENT: Head is normocephalic. NECK: Supple. HEART: Regular rate. LUNGS: Show diminished breath sounds at the base. ABDOMEN: Soft, nontender to palpation without rebound or guarding. EXTREMITIES: Negative for clubbing, cyanosis. Positive edema, but markedly improved. DERMATOLOGIC: No rashes. MUSCULOSKELETAL: No joint effusions. NEUROLOGIC: No change in exam. MEDICATIONS: The patient's medications have been reviewed. LABORATORY DATA: Currently pending. ASSESSMENT AND PLAN: 1. Nonoliguric acute kidney injury on top of chronic kidney disease with previous baseline creatinin e of 1.3 to 1.4 mg/dL. Etiology of acute kidney injury is secondary to hemodynamics. Renal function has been fluctuating. The patient's diuretics have been adjusted, currently on Bumex 1 mg b.i.d. W e will repeat a renal panel, and monitor closely. 2. Volume overload secondary to diastolic heart failure. The patient is clinically improving. Cont inue current diuretic regimen and monitor renal function. If renal function should further decline, we will deescalate diuretics. 3. Acute hypoxemic respiratory failure secondary to congestive heart failure exacerbation. The barrie ent is clinically improving. Continue medical management. 4. Anemia. Continue to monitor hemoglobin and hematocrit levels. 5. Mineral bone disorder, monitor calcium and phosphorus levels. 6. Peripheral vascular disease. Continue current treatment plan. Follow up with surgery. Dictated By: JOCELINE MCCALLUM DO NR/NTS Conf#: [id number] DID#: [id number] CC: JABIER SEBASTIAN MD; JOCELINE MCCALLUM DO;*EndCC*
[2018-09-21] MEDS: DIGOXIN 0.125 MG TAB PO SCH (13:14)
[2018-09-21 15:36] VITALS: BP 113/68; PULSE 60; RESP 22
--- NOTE | 2018-09-21 15:52 | NUR ---
[facility] Patient: Azalea Deal : 1935 Age/Sex: 83/F Unit#: [id number] Room/Bed: 2275/A User: Jose Luismahogany Hernandez PTA Date: 09/21/18 15:34 Type: PT Technical Record Therapy day number 7 Total Minutes 0 Total Units 0 PT Technical Record Comment PT notes: patient declined treatment stating that she's going home soon and she just waiting for her ride home; no treatment done at this time.
--- NOTE | 2018-09-21 16:17 | DS ---
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 fib, right lower extremity blister, diabetes, hypertension, obesity, CKD, PE. Patient presents with worsening lower extremity swelling and mild shortness of breath over the past several days. In the ER patient's BNP was elevated, ultrasound was negative for DVT. Of note patient does normally ambulates with a walker at home but has been having difficulty doing so due to her lower extremity swelling. Patient was given IV diuretics and over the week her volume status improved markedly. She did not require any oxygen and was breathing comfortably. She is being discharge to continue diuretics and local wound care as an outpatient. Family is not interested in a mcc placement. Home Meds Active Scripts Furosemide* (Furosemide*) 40 Mg Tablet, 40 MG PO DAILY, #30 TAB Prov:DAVID RAUSCH NP 08/09/18 Clotrimazole* (Lotrimin*) 1%-30 Gm Cream..g., 1 APPLIC TOP BID, #1 TUB Please apply to the right lower extremity wound twice daily. Prov:DAVID RAUSCH NP 08/09/18 Insulin Glargine,Hum.rec.anlog (Basaglar Kwikpen U-100) 100 Unit/1 Ml Insuln.pen, 5 UNIT SC DAILY for 30 Days, #1 EA Prov:RAMIRO MORRIS MD 04/05/18 Linagliptin (TRADJENTA) 5 Mg Tablet, 5 MG PO DAILY for 30 Days, #30 TAB Prov:RAMIRO MORRIS MD 04/05/18 Insulin Aspart* (Novolog Insulin Pen*) 100 Unit/Ml Soln, 10 UNIT SC WITH LUNCH for 30 Days, #1 EA Prov:RAMIRO MORRIS MD 04/05/18 Insulin Aspart* (Novolog Insulin Pen*) 100 Unit/Ml Soln, 10 UNIT SC WITH DINNER for 30 Days, #1 EA Prov:RAMIRO MORRIS MD 04/05/18 Insulin Aspart* (Novolog Insulin Pen*) 100 Unit/Ml Soln, 6 UNIT SC WITH BREAKFAST for 30 Days, #1 EA Prov:RAMIRO MORRIS MD 04/05/18 Fluticasone-Vilanterol (Breo Ellipta Inhaler) 100-25 Mcg/Actuation Aer.pow.ba, 1 INH INH DAILY for 30 Days, #1 EA Prov:RAMIRO MORRIS MD 04/05/18 Aspirin (Aspirin) 81 Mg Chew, 81 MG PO DAILY for 30 Days, #30 TAB Prov:RAMIRO MORRSI MD 04/05/18 Metoprolol Tartrate* (Lopressor*) 25 Mg Tab, 75 MG PO BID for 30 Days, #60 TAB Prov:RAMIRO MORRIS MD 04/05/18 Hydralazine Hcl* (Apresoline*) 50 Mg Tab, 50 MG PO Q8 for 30 Days, #90 TAB Prov:RAMIRO MORRIS MD 04/05/18 Diltiazem Hcl* (Cardizem CD*) 120 Mg Cap.sr.24h, 120 MG PO BID for 30 Days, #60 TAB Prov:RAMIRO MORRIS MD 04/05/18 Apixaban* (Eliquis*) 5 Mg Tablet, 2.5 MG PO BID for 30 Days, #60 TAB Prov:RAMIRO MORRIS MD 04/05/18 Tiotropium [place]* (Spiriva*) 18 Mcg Cap.w.dev, 1 INH INH DAILY for 30 Days, #30 CAP Prov:RAMIRO MORRIS MD 04/05/18 Psyllium Husk (Metamucil) 0.52 Gm Capsule, 0.52 GM PO DAILY for 30 Days, #30 CAP Prov:RAMIRO MORRIS MD 04/19/17 Digoxin* (Digitek*) 0.125 Mg Tab, 0.125 MG PO DAILY@13, #30 3 Refills Prov:DALLAS PICKETT 03/22/15 Reported Medications Albuterol Sulfate* (Proair HFA*) 8.5 Gm Hfa.aer.ad, 2 PUFF INH Q6H PRN for WHEEZING AND SOB, INH 03/16/15 Omeprazole* (Omeprazole*) 20 Mg Capsule.dr, 20 MG PO DAILY, CAP 03/16/15 Follow-up Plan Follow-up with PCP Primary Care Provider Gordy Nunez DO Time spent on discharge: > 30 minutes JABIER SEBASTIAN Sep 21, 2018 16:17
--- NOTE | 2018-09-21 17:10 | NUR ---
Discharge instructions Discharge instructions given to the patient. Aware to make a follow up appointment with her primary care physician. Patient to continue current home medications. Mansi, family spoke with Dr. Segura regarding patient's medications, Patient verbalized understanding of discharge instructions. Peripheral IV line removed. ID band removed. Patient discharge to home with home health, in stable condition. Accompanied by staff via wheelchair with family members.
== END 2018-09-21 17:10 | disposition home health service (06) | DRG 264 ==
LOC: E/R 14:23 → 6WM 17:43 → E/R 21:57 → 2NE 09-16 17:37
PROVIDERS: ADMIT Internal Medicine; ATTEND Internal Medicine
PROC: 0JBL0ZZ Excision of Right Upper Leg Subcutaneous Tissue and Fascia, Open Approach (ICD-10-PCS; principal; 2018-09-10)
DX: I11.0 Hypertensive heart disease with heart failure (principal); J96.01 Acute respiratory failure with hypoxia; G92 Toxic encephalopathy; L97.819 Non-pressure chronic ulcer of other part of right lower leg with unspecified severity; N17.9 Acute kidney failure, unspecified; I50.43 Acute on chronic combined systolic (congestive) and diastolic (congestive) heart failure; I48.0 Paroxysmal atrial fibrillation; I13.0 Hypertensive heart and chronic kidney disease with heart failure and stage 1 through stage 4 chronic kidney disease, or unspecified chronic kidney disease; N18.9 Chronic kidney disease, unspecified; E11.22 Type 2 diabetes mellitus with diabetic chronic kidney disease; I35.0 Nonrheumatic aortic (valve) stenosis; B35.3 Tinea pedis; B35.1 Tinea unguium; E11.40 Type 2 diabetes mellitus with diabetic neuropathy, unspecified; I87.2 Venous insufficiency (chronic) (peripheral); E11.51 Type 2 diabetes mellitus with diabetic peripheral angiopathy without gangrene; E11.622 Type 2 diabetes mellitus with other skin ulcer; J44.9 Chronic obstructive pulmonary disease, unspecified; E11.42 Type 2 diabetes mellitus with diabetic polyneuropathy; D50.9 Iron deficiency anemia, unspecified; Z86.711 Personal history of pulmonary embolism
CPT/HCPCS: 71045; 80048; 81001; 81003; 82043; 82962; 83036; 83735; 83880; 84100; 84155; 84300; 84484; 85025; 85610; 85730; 93005; 93922; 93970; 93971; 94640; 94664; 97110; 97116; 97161; 97530; J1815; J1940; J2916

== ENCOUNTER 2018-11-16 14:32 | Inpatient (IN) | payer MEDICARE, BC ==
[~2018-11-16] VITALS: Ht 162.6 cm; Wt 105.1 kg
[~2018-11-16 14:32] MED LIST changes: -TEMA15CA PO
--- NOTE | 2018-11-16 14:41 | ERD ---
ER Documentation Chief Complaint Chief Complaint SOB HPI The flaco is a 83-year-old female, presenting to the ER because of acute d yspnea for the last 2 days, worse today. She had similar symptoms previously, complains cough/ nasal congestion for the last 2 days. He denies fever, chills, neck pain, complains of chronic left-sided chest pain and intermittent abdominal pain associated with constipation for 1 week, complains of intermittent bloody stool for 1 week. She denies vomiting, dysuria. She used to smoke until 6 months ago Past medical history: History of CHF, history of proximal atrial fibrillation, aortic stenosis, hypertension, chronic kidney disease Past surgical history: Hysterectomy ROS All systems reviewed and are negative except as per history of present illness. Medications Home Meds Active Scripts Furosemide* (Furosemide*) 40 Mg Tablet, 40 MG PO DAILY, #30 TAB Prov:DAVID RAUSCH NP 08/09/18 Clotrimazole* (Lotrimin*) 1%-30 Gm Cream..g., 1 APPLIC TOP BID, #1 TUB Please apply to the right lower extremity wound twice daily. Prov:DAVID RAUSCH NP 08/09/18 Insulin Glargine,Hum.rec.anlog (Basaglar Kwikpen U-100) 100 Unit/1 Ml Insuln.pen, 5 UNIT SC DAILY for 30 Days, #1 EA Prov:RAMIRO MORRIS MD 04/05/18 Linagliptin (TRADJENTA) 5 Mg Tablet, 5 MG PO DAILY for 30 Days, #30 TAB Prov:RAMIRO MORRIS MD 04/05/18 Insulin Aspart* (Novolog Insulin Pen*) 100 Unit/Ml Soln, 10 UNIT SC WITH LUNCH for 30 Days, #1 EA Prov:RAMIRO MORRIS MD 04/05/18 Insulin Aspart* (Novolog Insulin Pen*) 100 Unit/Ml Soln, 10 UNIT SC WITH DINNER for 30 Days, #1 EA Prov:RAMIRO MORRIS MD 04/05/18 Insulin Aspart* (Novolog Insulin Pen*) 100 Unit/Ml Soln, 6 UNIT SC WITH BREAKFAST for 30 Days, #1 EA Prov:RAMIRO MORRIS MD 04/05/18 Fluticasone-Vilanterol (Breo Ellipta Inhaler) 100-25 Mcg/Actuation Aer.pow.ba, 1 INH INH DAILY for 30 Days, #1 EA Prov:RAMIRO MORRIS MD 04/05/18 Aspirin (Aspirin) 81 Mg Chew, 81 MG PO DAILY for 30 Days, #30 TAB Prov:RAMIRO MORRIS MD 04/05/18 Metoprolol Tartrate* (Lopressor*) 25 Mg Tab, 75 MG PO BID for 30 Days, #60 TAB Prov:RAMIRO MORRIS MD 04/05/18 Hydralazine Hcl* (Apresoline*) 50 Mg Tab, 50 MG PO Q8 for 30 Days, #90 TAB Prov:RAMIRO MORRIS MD 04/05/18 Diltiazem Hcl* (Cardizem CD*) 120 Mg Cap.sr.24h, 120 MG PO BID for 30 Days, #60 TAB Prov:RAMIRO MORRIS MD 04/05/18 Apixaban* (Eliquis*) 5 Mg Tablet, 2.5 MG PO BID for 30 Days, #60 TAB Prov:RAMIRO MORRIS MD 04/05/18 Tiotropium [place]* (Spiriva*) 18 Mcg Cap.w.dev, 1 INH INH DAILY for 30 Days, #30 CAP Prov:RAMIRO MORRIS MD 04/05/18 Psyllium Husk (Metamucil) 0.52 Gm Capsule, 0.52 GM PO DAILY for 30 Days, #30 CAP Prov:RAMIRO MORRIS MD 04/19/17 Digoxin* (Digitek*) 0.125 Mg Tab, 0.125 MG PO DAILY@13, #30 3 Refills Prov:DALLAS PICKETT 03/22/15 Reported Medications Albuterol Sulfate* (Proair HFA*) 8.5 Gm Hfa.aer.ad, 2 PUFF INH Q6H PRN for WHEEZING AND SOB, INH 03/16/15 Omeprazole* (Omeprazole*) 20 Mg Capsule.dr, 20 MG PO DAILY, CAP 03/16/15 Allergies Allergies: Coded Allergies: No Known Allergy (Unverified , 09/09/18) PMhx/Soc History of Surgery: Yes (HYSTERECTOMY, THYROIDECTOMY, R. 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 Head: Atraumatic. Eyes: Normal Conjunctiva. ENT: Normal External Ears, Nose and Mouth. Neck: Full range of motion. No meningismus. Resp: Bibasilar crackle Cardio: Regular tachycardic Abd: Soft, non distended, normal bowel sounds, non tender. Skin: No petechiae or rashes. Back: No midline or flank tenderness. Ext: Bilateral lower extremity edema does, erythematous with open wound on the left lower extremity, mild calf tenderness Neur: Awake and alert. No focal deficit Psych: Normal Mood and Affect. Result Diagram: 11/17/1815 11/17/1815 Results 24 hrs Laboratory Tests Test 11/16/18 15:03 11/16/18 15:04 Prothrombin Time 18.5 Sec Prothrombin Time Ratio 1.4 INR International Normalized Ratio 1.53 Activated Partial Thromboplast Time 32.8 Sec Sodium Level 143 mmol/L Potassium Level 4.7 mmol/L Chloride Level 111 mmol/L Carbon Dioxide Level 19 mmol/L Anion Gap 13 Blood Urea Nitrogen 24 mg/dl Creatinine 1.21 mg/dl Est Glomerular Filtrat Rate mL/min mL/min Glucose Level 115 mg/dl Calcium Level 9.5 mg/dl Total Bilirubin 0.3 mg/dl Direct Bilirubin 0.00 mg/dl Indirect Bilirubin 0.3 mg/dl Aspartate Amino Transf (AST/SGOT) 51 IU/L Alanine Aminotransferase (ALT/SGPT) 25 IU/L Alkaline Phosphatase 115 IU/L Troponin I 0.022 ng/ml B-Type Natriuretic Peptide 7160 PG/ML Total Protein 7.1 g/dl Albumin 3.6 g/dl Globulin 3.50 g/dl Albumin/Globulin Ratio 1.02 White Blood Count 5.4 10^3/ul Red Blood Count 4.65 10^6/ul Hemoglobin 10.5 g/dl Hematocrit 35.8 % Mean Corpuscular Volume 77.0 fl Mean Corpuscular Hemoglobin 22.6 pg Mean Corpuscular Hemoglobin Concent 29.3 g/dl Red Cell Distribution Width 20.3 % Platelet Count 232 10^3/UL Mean Platelet Volume 10.8 fl Immature Granulocytes % 0.200 % Neutrophils % 72.8 % Lymphocytes % 16.5 % Monocytes % 9.2 % Eosinophils % 0.9 % Basophils % 0.4 % Nucleated Red Blood Cells % 0.0 /100WBC Immature Granulocytes # 0.010 10^3/ul Neutrophils # 4.0 10^3/ul Lymphocytes # 0.9 10^3/ul Monocytes # 0.5 10^3/ul Eosinophils # 0.1 10^3/ul Basophils # 0.0 10^3/ul Nucleated Red Blood Cells # 0.0 10^3/ul POC Venous Lactate 2.2 mmol/L Current Medications Medications Dose Sig/Srinivas Start Time Status Last (Trade) Ordered Route PRN Stop Time Admin Dose Reason Admin Piperacillin 50 ml @ ONCE ONCE 11/16/18 DC 11/16/18 Sod/ 100 mls/hr IVPB 16:30 18:32 Tazobactam 11/16/18 16:59 Sod Vancomycin 250 ml @ ONCE ONCE 11/16/18 DC 11/16/18 HCl 125 mls/hr IVPB 16:30 16:39 11/16/18 18:29 Furosemide 40 mg ONCE ONCE 11/16/18 DC 11/16/18 (Lasix) IV 16:30 16:34 11/16/18 16:31 Procedures/[place] [address] Radiology Main Line: [phone] DIAGNOSTIC IMAGING REPORT Patient: MICHELE LEARY : 1935 Age: 83 Sex: F MR #: [id number] DOS: 11/16/18 1500 Ordering MD: MT ALVARES MD Location: E/R Room/Bed: PROCEDURE: Bilateral lower extremity venous duplex. CLINICAL INDICATION: Lower extremity pain and swelling. TECHNIQUE: Multiple longitudinal and transverse images of the bilateral lower extremity veins were obtained with saavedra scale and color Doppler imaging. 2D g rayscale measurements with compression, color Doppler flow, and augmentation was performed. The calf veins were interrogated as well. COMPARISON: No prior studies are available for comparison. FINDINGS: The bilateral common femoral, superficial femoral and popliteal veins are normally compressible throughout. Color flow demonstrates normal filling of the vessel. Normal waveforms are visualized and there is normal response to augmentation. The distal left femoral vein was not well visualized. The calf veins visualized are unremarkable. IMPRESSION: 1. No evidence of a deep vein thrombosis involving either lower extremity. RPTAT: GG .Prem Barrett MD, Date Time Electronically viewed and signed by .Prem Barrett MD, MD on 11/16/2018 16:41 .L/ CC: MT ALVARES MD [id number] [place] [address] Radiology Main Line: [phone] DIAGNOSTIC IMAGING REPORT Patient: MICHELE LEARY : 1935 Age: 83 Sex: F MR #: [id number] DOS: 11/16/18 1443 Ordering MD: MT ALVARES MD Location: E/R Room/Bed: PROCEDURE: XR Chest. CLINICAL INDICATION: Chest pain TECHNIQUE: Single frontal view of the chest was obtained COMPARISON: None FINDINGS: The heart is enlarged. The thoracic aorta is calcified. The lungs are clear. There is no pleural effusion or pneumothorax. RPTAT: AA IMPRESSION: Moderate cardiomegaly. Calcified aorta consistent with atherosclerotic disease. .Christopher Goss MD, Date Time Electronically viewed and signed by .Christopher Goss MD, on 11/16/2018 15:13 .S/ CC: MT ALVARES MD [phone] UA Pending EKG: Read by emergency physician Rate/Rhythm: Atrial fibrillation 109 beats/min RVR QRS, ST, T-waves: No ST elevation, no T inversion, LAD, low voltage Impression: Abnormal EKG MEDICAL MAKING DECISION: The patient is a 83-year-old, presenting with acute severe sepsis, acute CHF exacerbation, acute bilateral lower extremity cellulitis. She was treated with Zosyn IV, vancomycin IV for acute bilateral lower extremity cellulitis, Lasix 40 mg IV for acute CHF good response. The differential diagnoses considered include but are not limited to pneumonia, UTI, aspiration pneumonia, pyelonephritis, cellulitis, abscess, osteomyelitis MDM: Patient's infectious symptoms have not stabilized and the patient is at risk of rapid decompensation. The patient will be admitted for careful hydration, antibiotic therapy, and infectious source control. SEVERE SEPSIS CRITERIA: Infectious source: ble cellulitis End organ damage indicated by: [Lactate > 2.0 mmol/L SEPSIS MANAGEMENT Time of recognition of severe sepsis:4 pm. 3 HOUR BUNDLE Blood cultures x 2 before broad-spectrum antibiotics: [Yes] 30 ml/kg NS bolus [Not Completed b/c she also has acute CHF Initial lactate []2.2 Repeat lactate Pending SEPTIC SHOCK ASSESSMENT: [No] lactic acid > 4.0 [No] Persistent hypotension (SBP < 90 or 40 mmHg drop, MAP < 65) despite 30 mL/kg IV fluid bolus CRITICAL CARE Critical care time [35] minutes Emergent fluid management while maintaining close respiratory support. Provision of immediate and broad-spectrum antibiotic therapy. Simultaneous assessment for possible sources in order to direct targeted therapy. Considera tion for invasive and chemical support to prevent cardiopulmonary collapse. Critical care time is independent of procedures performed. Departure Diagnosis: Primary Impression: Severe sepsis Additional Impressions: CHF (congestive heart failure) Cellulitis of leg, left Cellulitis of leg, right Anemia Condition: Stable Comments I discussed the findings with the patient. I discussed the patient with the hospitalist Dr Segura at 5 pm . who was made aware of the lab, the treatment, the patient condition. The patient is admitted to [facility] Disclaimer: Inadvertent spelling and grammatical errors are likely due to EHR/dictation software use and do not reflect on the overall quality of patient care. Also, please note that the electronic time recorded on this note does not necessarily reflect the actual time of the patient encounter. MT ALVARES MD Nov 16, 2018 14:41
[2018-11-16] MEDS ORDERED: VANCOMYCIN 1 GM (PMX) 250 ML IVPB ONE (16:30)
[2018-11-16] MEDS ORDERED: FUROSEMIDE 40 MG INJ IV ONE (16:30)
[2018-11-16] MEDS ORDERED: PIPER-TAZO 2.25 GM (PMX) 50 ML IVPB ONE (16:30)
--- NOTE | 2018-11-16 19:14 | HP ---
Date/Time of Note Date/Time of Note DATE: 11/16/18 TIME: 19:06 Assessment/Plan VTE Prophylaxis Pharmacological prophylaxis: apixaban Lines/Catheters IV Catheter Type (from Nrsg): Mid Line Assessment/Plan Hospital Course 1. Lower extremity cellulitis secondary to lymphedema Vancomycin and Rocephin IV Lasix IV 2. Acute respiratory distress secondary to acute on chronic diastolic and systolic heart failure exacerbation BNP is elevated chest x-ray shows no significant edema Lasix Continue cardiac meds 3. Paroxysmal A. fib Continue Eliquis 4. History of PE Continue Eliquis 5. Hypertension Continue home meds 6. CKD Monitor 7. Diabetes Continue home insulin 8. Obesity Lifestyle changes graft 9. Aortic stenosis Prophylaxis: Eliquis Result Diagram: 11/16/18 1504 11/16/18 1503 Results 24hrs Laboratory Tests Test 11/16/18 15:03 11/16/18 15:04 11/16/18 17:21 11/16/18 18:11 Prothrombin Time 18.5 H Prothrombin Time 1.4 Ratio INR International 1.53 Normalized Ratio Activated 32.8 Partial Thrombopl ast Time Sodium Level 143 Potassium Level 4.7 Chloride Level 111 H Carbon Dioxide 19 L Level Anion Gap 13 Blood Urea 24 H Nitrogen Creatinine 1.21 H Est Glomerular Filtrat Rate mL/min Glucose Level 115 Calcium Level 9.5 Total Bilirubin 0.3 Direct Bilirubin 0.00 Indirect 0.3 Bilirubin Aspartate Amino 51 H Transf (AST/SGOT) Alanine 25 Aminotransferase (ALT/SGPT) Alkaline 115 Phosphatase Troponin I 0.022 B-Type 7160 H Natriuretic Peptide Total Protein 7.1 Albumin 3.6 Globulin 3.50 H Albumin/Globulin 1.02 Ratio White Blood Count 5.4 Red Blood Count 4.65 Hemoglobin 10.5 L Hematocrit 35.8 #L Mean Corpuscular 77.0 L Volume Mean Corpuscular 22.6 L Hemoglobin Mean Corpuscular 29.3 L Hemoglobin Concen t Red Cell 20.3 H Distribution Width Platelet Count 232 # Mean Platelet 10.8 H Volume Immature 0.200 Granulocytes % Neutrophils % 72.8 Lymphocytes % 16.5 Monocytes % 9.2 Eosinophils % 0.9 Basophils % 0.4 Nucleated Red 0.0 Blood Cells % Immature 0.010 Granulocytes # Neutrophils # 4.0 Lymphocytes # 0.9 Monocytes # 0.5 Eosinophils # 0.1 Basophils # 0.0 Nucleated Red 0.0 Blood Cells # POC Venous 2.2 *H 1.4 Lactate Urine Color YELLOW Urine Clarity SLIGHTLY CLOUDY A Urine pH 5.0 Urine Specific 1.016 [place] Urine Ketones NEGATIVE Urine Nitrite NEGATIVE Urine Bilirubin NEGATIVE Urine 2+ H Urobilinogen Urine Leukocyte TRACE A Esterase Urine Microscopic 3 RBC Urine Microscopic 3 WBC Urine Squamous FEW Epithelial Cells Urine Bacteria FEW A Urine Hemoglobin 1+ H Urine Glucose NEGATIVE Urine Total 1+ H Protein HPI/ROS Admit Date/Time Admit Date/Time November 16, 2018 Hx of Present Illness Patient is an 83-year-old female with a history of combined diastolic and systolic heart failure with moderate to severe aortic stenosis, paroxysmal A. fib, right lower extremity blister, diabetes, hypertension, obesity, CKD, PE. Patient presents with worsening lower extremity swelling and erythema as well as shortness of breath and cough. In the ER ultrasound of lower extremities were negative for DVT, chest x-ray showed no edema but BNP was elevated. Patient states that the redness in her lower extremities has worsened over the past several days, patient states that she does not have any diuretics at home no addition of oxygen. Patient has no other complaints at this time. ROS Constitutional: no complaints, improved Eyes: no complaints ENT: no complaints Respiratory: no complaints Cardiovascular: no complaints Gastrointestinal: no complaints Genitourinary: no complaints Musculoskeletal: no complaints Skin: erythema Neurologic: no complaints Endocrine: no complaints Lymphatic: lymphadema Psychological: no complaints, nl mood/affect Immunologic: no complaints PMH/Family/Social Past Medical History As per HPI Coded Allergies: No Known Allergy (Unverified , 09/09/18) Past Surgical History Past Surgical Hx: other Family History Significant Family History: no pertinent family hx Social History Alcohol Use: rarely Smoking Status: Never smoker Drug Use: none Exam/Review of Systems Vital Signs Vitals Vital Signs Date Temp Pulse Resp B/P (MAP) Pulse Ox O2 O2 Flow FiO2 Time Delivery Rate 11/16/18 2 18:41 11/16/18 Nasal 18:39 Cannula 11/16/18 110 22 127/90 100 18:37 (102) 11/16/18 97.6 14:34 Exam Constitutional: alert Respiratory: clear to auscultation Cardiovascular: regular rate and rhythm Gastrointestinal: soft; No distended Musculoskeletal: No nl extremities to inspection Extremities: edema Skin: other (Erythema in the lower extremities) JABIER SEBASTIANb 25, 2019 19:14
[2018-11-16] MEDS ORDERED: DOCUSATE SODIUM 100 MG CAP PO PRN (19:30)
[2018-11-16] MEDS ORDERED: ONDANSETRON 4 MG INJ IV PRN (19:30)
[2018-11-16] MEDS ORDERED: VANCOMYCIN IV PER PHARMACY XX SCH (19:30)
[2018-11-16] MEDS ORDERED: NACL 0.9% 3 ML SYG IV SCH (19:30)
[2018-11-16] MEDS ORDERED: CEFTRIAXONE 1 GM/50 ML (PMX) 50 ML IVPB SCH (19:30)
[2018-11-16 19:35] VITALS: PULSE 116
[2018-11-16 20:00] VITALS: BP 126/68; PULSE 106; PULSE 119; RESP 19
[2018-11-16 20:52] VITALS: Ht 162.6 cm; Wt 105.1 kg
[2018-11-16] MEDS: DILTIAZEM (CD) 120 MG CAP PO SCH (22:50)
[2018-11-16] MEDS: METOPROLOL 25 MG TAB PO SCH (22:50)
[2018-11-16] MEDS: APIXABAN 5 MG TABLET PO SCH (22:51)
[2018-11-16] MEDS: CLOTRIMAZOLE 1% 30 GM CR TOP SCH (22:52)
[2018-11-16] MEDS: INSULIN ASPART [NOVOLOG] 3 ML PEN SC SCH (23:00)
[2018-11-16] MEDS: INSULIN GLARGINE [LANTus] (100 UNITS/ML) SYG SC SCH (23:26)
[2018-11-16] MEDS ORDERED: ALBUTEROL/IPRATROPIUM (NEB) 3 ML AMP HHN PRN (23:30)
[2018-11-16 23:42] VITALS: BP 136/65; PULSE 106; RESP 19
[2018-11-17] VITALS (12 sets, daily range): BP systolic 91–128; BP diastolic 50–68; PULSE 67–102; RESP 17–21
[2018-11-17] MEDS: ACCU-CHEK XX SCH (02:00)
[2018-11-17] MEDS: PANTOPRAZOLE (EC) 40 MG TAB PO SCH (05:09)
[2018-11-17] MEDS: HYDROCODONE/APAP (5/325) TAB PO PRN (05:09)
[2018-11-17] MEDS: FUROSEMIDE 40 MG INJ IV SCH ×2 (07:04→17:52)
[2018-11-17] MEDS: INSULIN ASPART [NOVOLOG] 3 ML PEN SC SCH ×7 (07:53→21:00)
[2018-11-17] MEDS ORDERED: NON-FORMULARY/PATIENT OWN MED (Omeprazole* 20 MG) PO SCH (09:00)
[2018-11-17] MEDS ORDERED: PSYLLIUM HUSK 0.52 GM PO SCH (09:00)
[2018-11-17] MEDS: TIOTROPIUM 18 MCG CAPSULE INHA DEV INH SCH (09:31)
[2018-11-17] MEDS: METOPROLOL 25 MG TAB PO SCH ×2 (09:31→20:39)
[2018-11-17] MEDS: DILTIAZEM (CD) 120 MG CAP PO SCH ×2 (09:31→20:38)
[2018-11-17] MEDS: ASPIRIN 81 MG TAB PO SCH (09:31)
[2018-11-17] MEDS: PSYLLIUM 28% PACKET PO SCH (09:32)
[2018-11-17] MEDS: CLOTRIMAZOLE 1% 30 GM CR TOP SCH ×2 (09:32→21:55)
[2018-11-17] MEDS: APIXABAN 5 MG TABLET PO SCH ×2 (09:32→20:35)
[2018-11-17] MEDS ORDERED: ALBUTEROL/IPRATROPIUM (NEB) 3 ML AMP HHN STA (10:17)
[2018-11-17] MEDS: FLUTICASONE/VILANTEROL 100-25 INH SCH (12:56)
[2018-11-17] MEDS: DIGOXIN 0.125 MG TAB PO SCH (12:57)
[2018-11-17] MEDS ORDERED: VANCOMYCIN 1 GM 250 ML IVPB SCH (13:00)
[2018-11-17] MEDS ORDERED: VANCOMYCIN HCL 1.5 GM in SOD CHLORIDE 0.9% 250 ML IVPB SCH (16:00)
--- NOTE | 2018-11-17 16:16 | PN ---
Date/Time of Note Date/Time of Note DATE: 11/17/18 TIME: 16:14 Assessment/Plan VTE Prophylaxis Risk score (from Nsg)>0 risk: 5 Pharmacological prophylaxis: apixaban Lines/Catheters IV Catheter Type (from Nrsg): Mid Line Assessment/Plan Hospital Course 1. Lower extremity cellulitis secondary to lymphedema-improved Vancomycin and Rocephin IV ID consultation obtained Lasix IV 2. Acute respiratory distress secondary to acute on chronic diastolic and systolic heart failure exacerbation on COPD BNP is elevated chest x-ray shows no significant edema Patient does have noticeable wheezing this morning, started DuoNeb continue home Breo Lasix Continue cardiac meds 3. Paroxysmal A. fib Continue Eliquis 4. History of PE Continue Eliquis 5. Hypertension Continue home meds 6. CKD Monitor 7. Diabetes Continue home insulin 8. Obesity Lifestyle changes graft 9. Aortic stenosis 10. COPD Continue home Breo as well as DuoNeb Prophylaxis: Eliquis DC planning: Cellulitis has improved, anticipate DC in 1-2 days Result Diagram: 11/17/1815 11/17/1815 Results 24hrs Laboratory Tests Test 11/16/18 17:21 11/16/18 18:11 11/16/18 20:54 11/16/18 22:59 Urine Color YELLOW Urine Clarity SLIGHTLY CLOUDY A Urine pH 5.0 Urine Specific 1.016 [place] Urine Ketones NEGATIVE Urine Nitrite NEGATIVE Urine Bilirubin NEGATIVE Urine 2+ H Urobilinogen Urine Leukocyte TRACE A Esterase Urine Microscopic 3 RBC Urine Microscopic 3 WBC Urine Squamous FEW Epithelial Cells Urine Bacteria FEW A Urine Hemoglobin 1+ H Urine Glucose NEGATIVE Urine Total 1+ H Protein POC Venous 1.4 Lactate Lactic Acid Level 1.3 Bedside Glucose 129 Test 11/17/18 06:15 11/17/18 07:52 11/17/18 12:54 White Blood Count 5.0 Red Blood Count 4.26 Hemoglobin 9.7 L Hematocrit 32.7 L Mean Corpuscular 76.8 L Volume Mean Corpuscular 22.8 L Hemoglobin Mean Corpuscular 29.7 L Hemoglobin Concen t Red Cell 19.9 H Distribution Width Platelet Count 232 Mean Platelet 11.0 H Volume Immature 0.400 Granulocytes % Neutrophils % 68.2 Lymphocytes % 16.6 Monocytes % 12.2 H Eosinophils % 2.0 Basophils % 0.6 Nucleated Red 0.4 H Blood Cells % Immature 0.020 Granulocytes # Neutrophils # 3.4 Lymphocytes # 0.8 Monocytes # 0.6 Eosinophils # 0.1 Basophils # 0.0 Nucleated Red 0.0 Blood Cells # Sodium Level 143 Potassium Level 4.5 Chloride Level 112 H Carbon Dioxide 22 Level Anion Gap 9 Blood Urea 24 H Nitrogen Creatinine 1.44 H Est Glomerular Filtrat Rate mL/min Glucose Level 121 Hemoglobin A1c 6.7 H Calcium Level 9.3 Phosphorus Level 3.7 Magnesium Level 2.1 Bedside Glucose 99 71 Subjective 24 Hr Interval Summary Respiratory: shortness of breath Exam/Review of Systems Exam Vitals Vital Signs Date Temp Pulse Resp B/P (MAP) Pulse Ox O2 O2 Flow FiO2 Time Delivery Rate 11/17/18 98.3 67 21 96/52 (67) 95 15:14 11/17/18 3.0 30 11:10 11/17/18 Nasal 11:10 Cannula Intake and Output 11/16/18 11/16/18 11/17/18 1515:00 23:00 07:00 IntakeIntake Total 300 ml 1850 ml OutputOutput Total 800 ml BalanceBalance -500 ml 1850 ml Constitutional: alert, oriented Respiratory: wheezing Cardiovascular: regular rate and rhythm Gastrointestinal: soft; No distended Extremities: edema Results Results 24hrs Laboratory Tests Test 11/16/18 17:21 11/16/18 18:11 11/16/18 20:54 11/16/18 22:59 Urine Color YELLOW Urine Clarity SLIGHTLY CLOUDY A Urine pH 5.0 Urine Specific 1.016 [place] Urine Ketones NEGATIVE Urine Nitrite NEGATIVE Urine Bilirubin NEGATIVE Urine 2+ H Urobilinogen Urine Leukocyte TRACE A Esterase Urine Microscopic 3 RBC Urine Microscopic 3 WBC Urine Squamous FEW Epithelial Cells Urine Bacteria FEW A Urine Hemoglobin 1+ H Urine Glucose NEGATIVE Urine Total 1+ H Protein POC Venous 1.4 Lactate Lactic Acid Level 1.3 Bedside Glucose 129 Test 11/17/18 06:15 11/17/18 07:52 11/17/18 12:54 White Blood Count 5.0 Red Blood Count 4.26 Hemoglobin 9.7 L Hematocrit 32.7 L Mean Corpuscular 76.8 L Volume Mean Corpuscular 22.8 L Hemoglobin Mean Corpuscular 29.7 L Hemoglobin Concen t Red Cell 19.9 H Distribution Width Platelet Count 232 Mean Platelet 11.0 H Volume Immature 0.400 Granulocytes % Neutrophils % 68.2 Lymphocytes % 16.6 Monocytes % 12.2 H Eosinophils % 2.0 Basophils % 0.6 Nucleated Red 0.4 H Blood Cells % Immature 0.020 Granulocytes # Neutrophils # 3.4 Lymphocytes # 0.8 Monocytes # 0.6 Eosinophils # 0.1 Basophils # 0.0 Nucleated Red 0.0 Blood Cells # Sodium Level 143 Potassium Level 4.5 Chloride Level 112 H Carbon Dioxide 22 Level Anion Gap 9 Blood Urea 24 H Nitrogen Creatinine 1.44 H Est Glomerular Filtrat Rate mL/min Glucose Level 121 Hemoglobin A1c 6.7 H Calcium Level 9.3 Phosphorus Level 3.7 Magnesium Level 2.1 Bedside Glucose 99 71 Medications Medication Current Medications IV Flush (NS 3 ml) 3 ml PER PROTOCOL IV ; Start 11/16/18 at 19:30 Ondansetron HCl (Zofran Inj) 4 mg Q6H PRN IV NAUSEA/VOMITING; Start 11/16/18 at 19:30 Acetaminophen (Tylenol Tab) 650 mg Q6H PRN PO .PAIN 1-3 OR TEMP; Start 11/16/18 at 19:30 Acetaminophen/ Hydrocodone Bitart ([place] (5/325)) 1 tab Q6H PRN PO .MOD PAIN 4- 6 Last administered on 11/17/18at 05:09; Admin Dose 1 TAB; Start 11/16/18 at 19:30 Morphine Sulfate (morphine) 2 mg Q4H PRN IV .SEVERE PAIN 7-10; Start 11/16/18 at 19:30 Docusate Sodium (Colace) 100 mg Q12H PRN PO .CONSTIPATION; Start 11/16/18 at 19:30 Zolpidem Tartrate (Ambien) 5 mg QHS PRN PO .INSOMNIA; Start 11/16/18 at 19:30 Vancomycin HCl (Vanco Iv Per Pharmacy) VANCOMYCIN PER PHARMACY PER PROTOCOL XX ; Start 11/16/18 at 19:30 Apixaban (Eliquis) 2.5 mg BID PO Last administered on 11/17/18at 09:32; Admin Dose 2.5 MG; Start 11/16/18 at 21:00 Aspirin (Aspirin) 81 mg DAILY PO Last administered on 11/17/18at 09:31; Admin Dose 81 MG; Start 11/17/18 at 09:00 Clotrimazole (Lotrimin Cr) 1 applic BID TOP Last administered on 11/17/18 09:32; Admin Dose 1 APPLIC; Start 11/16/18 at 21:00 Digoxin (Digoxin) 0.125 mg DAILY@13 PO Last administered on 11/17/18 12:57; Admin Dose 0.125 MG; Start 11/17/18 at 13:00 Diltiazem HCl (Cardizem Cd) 120 mg BID PO Last administered on 11/17/18 09:31; Admin Dose 120 MG; Start 11/16/18 at 21:00 Hydralazine HCl (Apresoline) 50 mg Q8 PO Last administered on 11/17/18 14:42; Admin Dose 50 MG; Start 11/16/18 at 22:00 Metoprolol Tartrate (Lopressor) 75 mg BID PO Last administered on 11/17/18 09:31; Admin Dose 75 MG; Start 11/16/18 at 21:00 Tiotropium [place] (Spiriva) 1 inh DAILY INH Last administered on 11/17/18 09:31; Admin Dose 1 INH; Start 11/17/18 at 09:00 Diagnostic Test (Pha) (Accu-Chek) 1 ea 02 XX ; Start 11/17/18 at 02:00 Insulin Glargine (Lantus) 15 units DAILY@2000 SC Last administered on 11/16/18 23:26; Admin Dose 15 UNITS; Start 11/16/18 at 20:00 Insulin Aspart (Novolog Insulin Pen) 5 unit WITH MEALS SC Last administered on 11/17/18 08:02; Admin Dose 5 UNIT; Start 11/17/18 at 07:55 Insulin Aspart (Novolog Insulin Pen) NOVOLOG *MILD* ALGORITHM WITH MEALS BEDTIME SC ; Start 11/16/18 at 21:00 Furosemide (Lasix) 40 mg BID DIURETICS IV Last administered on 11/17/18 07:04; Admin Dose 40 MG; Start 11/17/18 at 06:00 Pantoprazole (Protonix Tab) 40 mg DAILY@06 PO Last administered on 11/17/18 05:09; Admin Dose 40 MG; Start 11/17/18 at 06:00 Psyllium Hydrophilic Mucilloid (Metamucil) 1 pkt DAILY PO Last administered on 11/17/18 09:32; Admin Dose 1 PKT; Start 2/26/19 at 09:00 Fluticasone/ Vilanterol (Breo Ellipta 100-25 Mcg Inh) 1 inh DAILY INH Last administered on 11/17/18at 12:56; Admin Dose 1 INH; Start 11/17/18 at 12:00 Albuterol/ Ipratropium (Duoneb) 3 ml Q4H RESP THERAPY PRN HHN SHORTNESS OF BREATH; Start 11/17/18 at 10:30 Ceftriaxone Sodium 50 ml @ 100 mls/hr Q24H IVPB ; Start 11/17/18 at 21:00 Vancomycin HCl 1.5 gm/Sodium Chloride 250 ml @ 83.333 mls/ hr Q36H IVPB ; Start 11/17/18 at 16:00 JABIER SEBASTIAN Nov 17, 2018 16:16
--- NOTE | 2018-11-17 17:20 | CONS ---
DATE OF ADMISSION: 11/16/2018 DATE OF CONSULTATION: 11/16/2018 INFECTIOUS DISEASE CONSULTATION REASON FOR CONSULTATION: Antibiotic management. HISTORY OF PRESENT ILLNESS: Azalea Deal is an 83-year-old female who presented to the emergency room with acute dyspnea for the last 2 days prior to admission. Past problems include: 1. Status post hysterectomy. 2. Status post thyroidectomy. 3. Right eye surgery. 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 5. Peripheral neuropathy. 6. Asthma. 7. Hypertension. 8. CHF. 9. Morbid obesity. 10. Moderate to severe aortic stenosis. 11. Diabetes mellitus. 12. Atrial fibrillation. 13. Chronic renal disease. On admission, the patient's white count was 5.4, H and H of 10.5, 35.8, platelet count 232,000. BUN and creatinine 24/1.21. Random glucose 115. PHYSICAL EXAMINATION: GENERAL: The patient was in no acute distress. VITAL SIGNS: Stable. She is afebrile. SKIN: Without generalized rash. HEENT: Within normal limits. NECK: Supple. LYMPH NODES: None palpable. CHEST: Decreased breath sounds at the bases. HEART: Without murmur or gallop. ABDOMEN: Soft, nontender, without organosplenomegaly or masses. EXTREMITIES: Without cyanosis, clubbing, or edema. RECTAL AND GENITAL: Deferred. NEUROLOGIC: No focal neurological abnormality. The patient was started on vancomycin and Zosyn, then switched over to ceftriaxone. Urine cultures g rowing alpha hemolytic strep. Blood cultures are negative. White count 5.0. Urine showed trace melquiades kocyte esterase, 3 white cells per high-power field. Chest x-ray, calcific aorta, and moderate cardi omegaly, no acute infiltrate. IMPRESSION AND PLAN: The patient appears to have a urinary tract infection. We will continue her on ceftriaxone. I will dictate my findings to the hospitalist. Dictated By: LAKISHA ESPINOZA MD, JD/MIRTA Conf#: [id number] DID#: [id number] CC: JABIER SEBASTIAN MD;*EndCC*
[2018-11-17] MEDS: CEFTRIAXONE 2 GM/NS 50 ML IVPB SCH (21:26)
[2018-11-17] MEDS: INSULIN GLARGINE [LANTus] (100 UNITS/ML) SYG SC SCH (21:54)
[2018-11-18] VITALS (12 sets, daily range): BP systolic 106–129; BP diastolic 55–65; PULSE 66–82; RESP 17–22
[2018-11-18] MEDS: morphine 2 MG INJ IV PRN (00:13)
[2018-11-18] MEDS: ALBUTEROL/IPRATROPIUM (NEB) 3 ML AMP HHN PRN ×2 (00:58→09:42)
[2018-11-18] MEDS: ACCU-CHEK XX SCH (02:00)
[2018-11-18] MEDS: PANTOPRAZOLE (EC) 40 MG TAB PO SCH (05:35)
[2018-11-18] MEDS: INSULIN ASPART [NOVOLOG] 3 ML PEN SC SCH ×7 (07:55→20:56)
[2018-11-18] MEDS: FLUTICASONE/VILANTEROL 100-25 INH SCH (08:23)
[2018-11-18] MEDS: DILTIAZEM (CD) 120 MG CAP PO SCH ×2 (08:26→20:37)
[2018-11-18] MEDS: TIOTROPIUM 18 MCG CAPSULE INHA DEV INH SCH (08:26)
[2018-11-18] MEDS: METOPROLOL 25 MG TAB PO SCH ×2 (08:27→20:37)
[2018-11-18] MEDS: ASPIRIN 81 MG TAB PO SCH (08:27)
[2018-11-18] MEDS: APIXABAN 5 MG TABLET PO SCH ×2 (08:27→20:38)
[2018-11-18] MEDS: PSYLLIUM 28% PACKET PO SCH (08:27)
[2018-11-18] MEDS: CLOTRIMAZOLE 1% 30 GM CR TOP SCH ×2 (08:28→20:36)
[2018-11-18] MEDS: FUROSEMIDE 40 MG INJ IV SCH ×2 (08:32→17:07)
[2018-11-18] MEDS: DIGOXIN 0.125 MG TAB PO SCH (12:06)
[2018-11-18] MEDS: METHYLPREDNISOLONE 125 MG INJ IV SCH ×2 (12:52→20:36)
[2018-11-18] MEDS: ALBUTEROL/IPRATROPIUM (NEB) 3 ML AMP HHN SCH ×3 (13:41→20:16)
[2018-11-18] MEDS ORDERED: METHYLPREDNISOLONE 125 MG INJ IV SCH (14:00)
--- NOTE | 2018-11-18 15:16 | PN ---
Date/Time of Note Date/Time of Note DATE: 11/18/18 TIME: 15:11 Assessment/Plan VTE Prophylaxis Risk score (from Nsg)>0 risk: 5 Pharmacological prophylaxis: apixaban Lines/Catheters IV Catheter Type (from Nrsg): Mid Line Assessment/Plan Hospital Course 1. Lower extremity cellulitis secondary to lymphedema-improved Vancomycin and Rocephin IV ID consultation appreciated Lasix IV 2. Acute respiratory distress secondary to acute on chronic diastolic and systolic heart failure exacerbation on COPD BNP is elevated repeat chest x-ray does show CHF Patient does have persistent wheezing this morning despite nebulizers, change DuoNeb to scheduled and start steroids Pulmonology consultation obtained Continue Lasix Continue cardiac meds 3. Paroxysmal A. fib Continue Eliquis 4. History of PE Continue Eliquis 5. Hypertension Continue home meds 6. Acute kidney injury on CKD likely secondary to hemodynamics and diuresis Nephrology consultation obtained 7. Diabetes Continue home insulin, sugars have been low but steroids have been started and hence anticipate sugars to rise 8. Obesity Lifestyle changes 9. Aortic stenosis 10. COPD Continue home Breo as well as DuoNeb Prophylaxis: Eliquis DC planning: Not stable for DC, continue diuresis and steroids, follow-up on pulmonology and nephrology recommendations, patient is not interested in eventual jail placement Result Diagram: 11/17/18 0615 11/18/18 0529 Results 24hrs Laboratory Tests Test 11/17/18 17:50 11/17/18 19:09 11/17/18 20:34 11/18/18 05:29 Bedside Glucose 61 L 122 122 Sodium Level 140 Potassium Level 5.2 H Chloride Level 108 Carbon Dioxide 21 Level Anion Gap 11 Blood Urea 29 H Nitrogen Creatinine 1.97 H Est Glomerular Filtrat Rate mL/min Glucose Level 71 # Calcium Level 9.1 Test 11/18/18 08:14 11/18/18 08:41 11/18/18 11:56 11/18/18 13:55 Bedside Glucose 61 L 82 115 Urine Color JUAN Urine Clarity SLIGHTLY CLOUDY A Urine pH 5.0 Urine Specific 1.018 [place] Urine Ketones TRACE A Urine Nitrite NEGATIVE Urine Bilirubin 1+ H Urine 2+ H Urobilinogen Urine Leukocyte 1+ H Esterase Urine Microscopic 7 H RBC Urine Microscopic 8 H WBC Urine Bacteria FEW A Urine Yeast MODERATE A (Budding) Urine Hemoglobin NEGATIVE Urine Random 192.60 Creatinine Urine Random 14 L Sodium Urine Glucose NEGATIVE Urine Total 42.0 H Protein Subjective 24 Hr Interval Summary Respiratory: shortness of breath Exam/Review of Systems Exam Vitals Vital Signs Date Temp Pulse Resp B/P (MAP) Pulse Ox O2 O2 Flow FiO2 Time Delivery Rate 11/18/18 70 20 98 Nasal 3.0 13:41 Cannula 11/18/18 98.0 106/55 11:01 (72) 11/18/18 30 00:57 Intake and Output 11/17/18 11/17/18 11/18/18 1515:00 23:00 07:00 IntakeIntake Total 1200 ml BalanceBalance 1200 ml Constitutional: alert, oriented Respiratory: wheezing Cardiovascular: regular rate and rhythm Gastrointestinal: soft; No distended Musculoskeletal: nl extremities to inspection Results Results 24hrs Laboratory Tests Test 11/17/18 17:50 11/17/18 19:09 11/17/18 20:34 11/18/18 05:29 Bedside Glucose 61 L 122 122 Sodium Level 140 Potassium Level 5.2 H Chloride Level 108 Carbon Dioxide 21 Level Anion Gap 11 Blood Urea 29 H Nitrogen Creatinine 1.97 H Est Glomerular Filtrat Rate mL/min Glucose Level 71 # Calcium Level 9.1 Test 11/18/18 08:14 11/18/18 08:41 11/18/18 11:56 11/18/18 13:55 Bedside Glucose 61 L 82 115 Urine Color JUAN Urine Clarity SLIGHTLY CLOUDY A Urine pH 5.0 Urine Specific 1.018 [place] Urine Ketones TRACE A Urine Nitrite NEGATIVE Urine Bilirubin 1+ H Urine 2+ H Urobilinogen Urine Leukocyte 1+ H Esterase Urine Microscopic 7 H RBC Urine Microscopic 8 H WBC Urine Bacteria FEW A Urine Yeast MODERATE A (Budding) Urine Hemoglobin NEGATIVE Urine Random 192.60 Creatinine Urine Random 14 L Sodium Urine Glucose NEGATIVE Urine Total 42.0 H Protein Medications Medication Current Medications IV Flush (NS 3 ml) 3 ml PER PROTOCOL IV ; Start 11/16/18 at 19:30 Ondansetron HCl (Zofran Inj) 4 mg Q6H PRN IV NAUSEA/VOMITING; Start 11/16/18 at 19:30 Acetaminophen (Tylenol Tab) 650 mg Q6H PRN PO .PAIN 1-3 OR TEMP; Start 11/16/18 at 19:30 Acetaminophen/ Hydrocodone Bitart ([place] (5/325)) 1 tab Q6H PRN PO .MOD PAIN 4- 6 Last administered on 11/17/18 05:09; Admin Dose 1 TAB; Start 11/16/18 at 19:30 Morphine Sulfate (morphine) 2 mg Q4H PRN IV .SEVERE PAIN 7-10 Last administered on 11/18/18 00:13; Admin Dose 2 MG; Start 11/16/18 at 19:30 Docusate Sodium (Colace) 100 mg Q12H PRN PO .CONSTIPATION; Start 11/16/18 at 19:30 Zolpidem Tartrate (Ambien) 5 mg QHS PRN PO .INSOMNIA; Start 11/16/18 at 19:30 Vancomycin HCl (Vanco Iv Per Pharmacy) VANCOMYCIN PER PHARMACY PER PROTOCOL XX ; Start 11/16/18 at 19:30 Apixaban (Eliquis) 2.5 mg BID PO Last administered on 11/18/18 08:27; Admin Dose 2.5 MG; Start 11/16/18 at 21:00 Aspirin (Aspirin) 81 mg DAILY PO Last administered on 11/18/18 08:27; Admin Dose 81 MG; Start 11/17/18 at 09:00 Clotrimazole (Lotrimin Cr) 1 applic BID TOP Last administered on 11/18/18 08:28; Admin Dose 1 APPLIC; Start 11/16/18 at 21:00 Digoxin (Digoxin) 0.125 mg DAILY@13 PO Last administered on 11/18/18 12:06; Admin Dose 0.125 MG; Start 11/17/18 at 13:00 Diltiazem HCl (Cardizem Cd) 120 mg BID PO Last administered on 11/18/18 08:26; Admin Dose 120 MG; Start 11/16/18 at 21:00 Hydralazine HCl (Apresoline) 50 mg Q8 PO Last administered on 11/18/18 13:04; Admin Dose 50 MG; Start 11/16/18 at 22:00 Metoprolol Tartrate (Lopressor) 75 mg BID PO Last administered on 11/18/18 08:27; Admin Dose 75 MG; Start 11/16/18 at 21:00 Tiotropium [place] (Spiriva) 1 inh DAILY INH Last administered on 11/18/18 08:26; Admin Dose 1 INH; Start 11/17/18 at 09:00 Diagnostic Test (Pha) (Accu-Chek) 1 ea 02 XX ; Start 11/17/18 at 02:00 Insulin Glargine (Lantus) 15 units DAILY@2000 SC Last administered on 11/17/18 21:54; Admin Dose 15 UNITS; Start 11/16/18 at 20:00 Insulin Aspart (Novolog Insulin Pen) 5 unit WITH MEALS SC Last administered on 11/18/18 12:31; Admin Dose 5 UNIT; Start 11/17/18 at 07:55 Insulin Aspart (Novolog Insulin Pen) NOVOLOG *MILD* ALGORITHM WITH MEALS BEDTIME SC ; Start 11/16/18 at 21:00 Furosemide (Lasix) 40 mg BID DIURETICS IV Last administered on 11/18/18 08:32; Admin Dose 40 MG; Start 11/17/18 at 06:00 Pantoprazole (Protonix Tab) 40 mg DAILY@06 PO Last administered on 11/18/18 05:35; Admin Dose 40 MG; Start 11/17/18 at 06:00 Psyllium Hydrophilic Mucilloid (Metamucil) 1 pkt DAILY PO Last administered on 11/18/18 08:27; Admin Dose 1 PKT; Start 11/17/18 at 09:00 Fluticasone/ Vilanterol (Breo Ellipta 100-25 Mcg Inh) 1 inh DAILY INH Last administered on 11/18/18 08:23; Admin Dose 1 INH; Start 11/17/18 at 12:00 Ceftriaxone Sodium 50 ml @ 100 mls/hr Q24H IVPB Last administered on 11/17/18 21:26; Admin Dose 100 MLS/HR; Start 11/17/18 at 21:00 Vancomycin HCl 1.5 gm/Sodium Chloride 250 ml @ 83.333 mls/ hr Q36H IVPB Last administered on 11/17/18 16:30; Admin Dose 83.333 MLS/HR; Start 11/17/18 at 16:00 Albuterol/ Ipratropium (Duoneb) 3 ml Q4H RESP THERAPY HHN Last administered on 11/18/18 13:41; Admin Dose 3 ML; Start 11/18/18 at 13:00 Methylprednisolone Sodium Succinate (Solu-Medrol) 60 mg Q8H IV Last administered on 11/18/18 12:52; Admin Dose 60 MG; Start 11/18/18 at 13:00; Stop 11/19/18 at 05:01 JABIER SEBASTIAN Nov 18, 2018 15:16
--- NOTE | 2018-11-18 15:59 | CONS ---
Assessment/Plan Assessment/Plan Hospital Course (Demo Recall) Patient is alert, tachypneic with audible wheezing, she is in no distress though, on nasal cannula. No fevers overnight. No CBC this morning. BUN 29 creatinine 1.97. Microbiology: Blood culture growing gram-positive cocci in pair and clusters 1 out of 2 sets, urine culture growing gram-positive cocci. Left lower extremity wound culture growing Enterobacter cloaca, gram-negative rods, staph species Chest x-ray this morning revealed CHF bilateral pleural effusions left greater than right and diffuse interstitial edema Indwelling: Soto right upper extremity midline Antimicrobials: Vancomycin Rocephin Physical examination: Well-developed morbidly obese -[place] woman who is awake in no distress. Head atraumatic normocephalic sclera nonicteric. Neck is supple. Chest rise symmetrical breath sounds with diffuse crackles and expiratory wheezes. Heart: S1-S2.. Abdomen obese soft, bowel sounds present. Extremities: Bilateral lower extremities edema erythema and multiple wounds, left more than right Assessment: 1. Sepsis, present on admission 2. Bacteremia, rule out contaminant 3. 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 Urinary tract infection 5. Acute hypoxemic respiratory failure secondary to pulmonary edema and CHF exacerbation 6. Morbid obesity 7. Atrial fibrillation 8. Diabetes 9. Acute kidney failure Plan: Repeat blood cultures and urine culture, change vancomycin to Zyvox STEPHANY Singh Consultation Date/Type/Reason Admit Date/Time Nov 16, 2018 at 17:17 Initial Consult Date Type of Consult id Date/Time of Note DATE: 11/18/18 TIME: 15:58 Exam/Review of Systems Exam Vitals Vital Signs Date Temp Pulse Resp B/P (MAP) Pulse Ox O2 O2 Flow FiO2 Time Delivery Rate 11/18/18 98.0 78 18 115/65 97 Nasal 15:10 (82) Cannula 11/18/18 3.0 13:41 11/18/18 30 00:57 Intake and Output 11/17/18 11/17/18 11/18/18 1515:00 23:00 07:00 IntakeIntake Total 1200 ml BalanceBalance 1200 ml Results Result Diagram: 11/17/18 0615 11/18/18 0529 Results 24hrs Laboratory Tests Test 11/17/18 17:50 11/17/18 19:09 11/17/18 20:34 11/18/18 05:29 Bedside Glucose 61 L 122 122 Sodium Level 140 Potassium Level 5.2 H Chloride Level 108 Carbon Dioxide 21 Level Anion Gap 11 Blood Urea 29 H Nitrogen Creatinine 1.97 H Est Glomerular Filtrat Rate mL/min Glucose Level 71 # Calcium Level 9.1 Test 11/18/18 08:14 11/18/18 08:41 11/18/18 11:56 11/18/18 13:55 Bedside Glucose 61 L 82 115 Urine Color JUAN Urine Clarity SLIGHTLY CLOUDY A Urine pH 5.0 Urine Specific 1.018 [place] Urine Ketones TRACE A Urine Nitrite NEGATIVE Urine Bilirubin 1+ H Urine 2+ H Urobilinogen Urine Leukocyte 1+ H Esterase Urine Microscopic 7 H RBC Urine Microscopic 8 H WBC Urine Bacteria FEW A Urine Yeast MODERATE A (Budding) Urine Hemoglobin NEGATIVE Urine Random 192.60 Creatinine Urine Random 14 L Sodium Urine Glucose NEGATIVE Urine Total 42.0 H Protein Medications Medication Current Medications IV Flush (NS 3 ml) 3 ml PER PROTOCOL IV ; Start 11/16/18 at 19:30 Ondansetron HCl (Zofran Inj) 4 mg Q6H PRN IV NAUSEA/VOMITING; Start 11/16/18 at 19:30 Acetaminophen (Tylenol Tab) 650 mg Q6H PRN PO .PAIN 1-3 OR TEMP; Start 11/16/18 at 19:30 Acetaminophen/ Hydrocodone Bitart ([place] (5/325)) 1 tab Q6H PRN PO .MOD PAIN 4- 6 Last administered on 11/17/18at 05:09; Admin Dose 1 TAB; Start 11/16/18 at 19:30 Morphine Sulfate (morphine) 2 mg Q4H PRN IV .SEVERE PAIN 7-10 Last administered on 11/18/18at 00:13; Admin Dose 2 MG; Start 11/16/18 at 19:30 Docusate Sodium (Colace) 100 mg Q12H PRN PO .CONSTIPATION; Start 11/16/18 at 19:30 Zolpidem Tartrate (Ambien) 5 mg QHS PRN PO .INSOMNIA; Start 11/16/18 at 19:30 Apixaban (Eliquis) 2.5 mg BID PO Last administered on 11/18/18at 08:27; Admin Dose 2.5 MG; Start 11/16/18 at 21:00 Aspirin (Aspirin) 81 mg DAILY PO Last administered on 11/18/18 08:27; Admin Dose 81 MG; Start 11/17/18 at 09:00 Clotrimazole (Lotrimin Cr) 1 applic BID TOP Last administered on 11/18/18 08:28; Admin Dose 1 APPLIC; Start 11/16/18 at 21:00 Digoxin (Digoxin) 0.125 mg DAILY@13 PO Last administered on 11/18/18 12:06; Admin Dose 0.125 MG; Start 11/17/18 at 13:00 Diltiazem HCl (Cardizem Cd) 120 mg BID PO Last administered on 11/18/18 08:26; Admin Dose 120 MG; Start 11/16/18 at 21:00 Hydralazine HCl (Apresoline) 50 mg Q8 PO Last administered on 11/18/18 13:04; Admin Dose 50 MG; Start 11/16/18 at 22:00 Metoprolol Tartrate (Lopressor) 75 mg BID PO Last administered on 11/18/18 08:27; Admin Dose 75 MG; Start 11/16/18 at 21:00 Tiotropium [place] (Spiriva) 1 inh DAILY INH Last administered on 11/18/18 08:26; Admin Dose 1 INH; Start 11/17/18 at 09:00 Diagnostic Test (Pha) (Accu-Chek) 1 ea 02 XX ; Start 11/17/18 at 02:00 Insulin Glargine (Lantus) 15 units DAILY@2000 SC Last administered on 11/17/18 21:54; Admin Dose 15 UNITS; Start 11/16/18 at 20:00 Insulin Aspart (Novolog Insulin Pen) 5 unit WITH MEALS SC Last administered on 11/18/18 12:31; Admin Dose 5 UNIT; Start 11/17/18 at 07:55 Insulin Aspart (Novolog Insulin Pen) NOVOLOG *MILD* ALGORITHM WITH MEALS BEDTIME SC ; Start 11/16/18 at 21:00 Furosemide (Lasix) 40 mg BID DIURETICS IV Last administered on 11/18/18 08:32; Admin Dose 40 MG; Start 11/17/18 at 06:00 Pantoprazole (Protonix Tab) 40 mg DAILY@06 PO Last administered on 11/18/18 05:35; Admin Dose 40 MG; Start 11/17/18 at 06:00 Psyllium Hydrophilic Mucilloid (Metamucil) 1 pkt DAILY PO Last administered on 11/18/18 08:27; Admin Dose 1 PKT; Start 11/17/18 at 09:00 Fluticasone/ Vilanterol (Breo Ellipta 100-25 Mcg Inh) 1 inh DAILY INH Last administered on 11/18/18 08:23; Admin Dose 1 INH; Start 11/17/18 at 12:00 Ceftriaxone Sodium 50 ml @ 100 mls/hr Q24H IVPB Last administered on 11/17/18 21:26; Admin Dose 100 MLS/HR; Start 11/17/18 at 21:00 Albuterol/ Ipratropium (Duoneb) 3 ml Q4H RESP THERAPY HHN Last administered on 11/18/18 13:41; Admin Dose 3 ML; Start 11/18/18 at 13:00 Methylprednisolone Sodium Succinate (Solu-Medrol) 60 mg Q8H IV Last administer ed on 11/18/18 12:52; Admin Dose 60 MG; Start 11/18/18 at 13:00; Stop 11/19/18 at 05:01 ROCHELLE STERLING NP Nov 18, 2018 15:59
--- NOTE | 2018-11-18 18:25 | CONS ---
DATE OF ADMISSION: 11/16/2018 DATE OF CONSULTATION: TYPE OF CONSULTATION: Nephrology. REASON FOR CONSULTATION: Acute kidney injury. PHYSICIAN REQUESTING CONSULT: Karl Segura MD HISTORY OF PRESENT ILLNESS: This is an 83-year-old female with a past medical history of chronic kid sherlyn disease with previous baseline creatinine around 1.5 mg/dL, history of systolic diastolic heart f ailure, history of severe aortic stenosis, history of paroxysmal AFib, history of diabetes, hypertens ion, obesity, CKD, pulmonary embolism, who presents to [facility] with worsening lo wer extremity swelling, erythema, shortness of breath and cough. The patient in the emergency room h ad Doppler ultrasounds negative for DVT. Chest x-ray showed no pulmonary congestion. The patient wa s started on diuretic therapy, antibiotics and was admitted to telemetry for treatment of cellulitis. The patient was also given nebulizers, breathing treatments for possible COPD exacerbation. In terms of patient's renal history, the patient has history of CKD with previous baseline creatinine of 1.5 mg/dL. The patient during this current hospital course, creatinine has increased to 1.97 mg/ dL. The patient has been receiving IV vancomycin, has been receiving diuretic therapy. There have b een no reports of any hemoptysis, hematemesis or hematochezia. Urinary output has been unclear as th e patient has no Soto catheter. PAST MEDICAL HISTORY: As stated above, history of CKD, history of CHF, systolic diastolic, history o f diabetes, hypertension, obesity, history of severe aortic stenosis. FAMILY HISTORY: No family history of kidney disease. SOCIAL HISTORY: Does not drink, smoke or do drugs. MEDICATIONS: Have been reviewed. ALLERGIES: NO KNOWN DRUG ALLERGIES. REVIEW OF SYSTEMS: A 14-point review of systems conducted. Pertinent positives stated in HPI, other kaufman negative. PHYSICAL EXAMINATION: VITAL SIGNS: Blood pressure is 106/55, respirations 22, pulse 66, temperature 98.0. HEENT: Head is normocephalic. NECK: Supple. HEART: Regular rate. LUNGS: Show diminished breath sounds at the base. ABDOMEN: Soft, nontender to palpation without rebound or guarding. EXTREMITIES: Positive for edema, positive for erythema, positive tenderness to palpation. DERMATOLOGIC: No rashes. MUSCULOSKELETAL: No joint effusion. NEUROLOGIC: Limited exam but no obvious focal deficit. LABORATORY DATA: Show sodium 140, potassium 5.2, BUN 29, creatinine 1.97. White count 5.0, hemoglob in 9.7, platelet count is 232. The patient's hemoglobin A1c is 6.7. Urinalysis shows trace pyuria, hematuria and positive for epithelial cells, positive proteinuria. The patient's cultures were posit bria. ASSESSMENT AND PLAN: This is an 83-year-old female who presents with: 1. Nonoliguric acute kidney injury on top of chronic kidney disease with previous baseline creatinin e around 1.5 mg/dL. Etiology of current acute kidney injury is likely multifactorial secondary to he modynamics, questionable nephrotoxicity from antibiotics, vancomycin, possible cardiorenal syndrome. The patient's urinalysis was reviewed. No evidence of active sediment, noted pyuria. Low suspicion for acute glomerulonephritis or vasculitis given patient's clinical presentation. Plan at this poin t is to repeat UA with microanalysis. Check urine electrolytes, calculate a FENa. We would disconti nue IV antibiotics. I discussed the case with infectious disease to consider alternate antibiotics. We would continue gentle diuretic therapy; however consider de-escalation if renal function should f urther decline. We will otherwise continue supportive care, renally dose all meds, avoid nephrotoxin s. 2. Volume overload. Etiology is multifactorial secondary to acute heart failure, systolic, diastoli c. The patient currently is on diuretic therapy. We would continue to monitor renal function, elect rolytes closely. If renal functions further decline, we will deescalate diuretic therapy in order to enable fluid to mobilize. 3. Mild hyperkalemia secondary to acute kidney injury. The patient will be placed on low-potassium diet. 4. Anemia. Monitor hemoglobin and hematocrit levels. 5. Mineral bone disorder. Monitor calcium and phosphorus levels. 6. Acute respiratory failure secondary to heart failure, chronic obstructive pulmonary disease exace rbation. Continue medical management. Continue nebulized steroids. Monitor closely. 7. Lower extremity cellulitis. Continue antibiotic therapy. 8. Paroxysmal atrial fibrillation. Continue medical management. Continue Eliquis. 9. Diabetes. Continue current insulin regimen. 10. Obesity. Continue dietary modification. 11. Severe aortic stenosis. Continue to monitor volume status closely. Thank you, Dr. Segura, for this interesting consult. It will be a pleasure to follow patient with alpa hernandez throughout the hospital course. Dictated By: JOCELINE OLEA/MIRTA Conf#: [id number] DID#: [id number] CC: KARL SEGURA MD;*[facility]*
--- NOTE | 2018-11-18 19:25 | CONS ---
DATE OF ADMISSION: 11/16/2018 DATE OF CONSULTATION: REASON FOR CONSULT: Shortness of breath. Thank you, Dr. Segura, for this consultation. HISTORY OF PRESENT ILLNESS: This is an 83-year-old lady with likely systolic and diastolic dysfuncti on, presenting with lower extremity edema, cellulitis and paroxysmal atrial fibrillation. She has valentino d worsening dyspnea in addition with some accessory muscle use. The patient is a poor historian, krystal ble to give me further details. She states she is currently a nonsmoker and no prior history of asth ma or COPD. PAST MEDICAL HISTORY: As above. MEDICATIONS: Per chart. ALLERGIES: NONE. SOCIAL HISTORY: Currently nonsmoker. No alcohol. No history of drug use. FAMILY HISTORY: Noncontributory. REVIEW OF SYSTEMS: A 12-point review of systems is negative other than that mentioned. PHYSICAL EXAMINATION: GENERAL: Elderly-appearing lady. Mild distress but no accessory muscle use. VITAL SIGNS: Currently afebrile. Temperature 98, pulse is 70, blood pressure 106/55, O2 sat 96% on 3 L. NECK: Supple. No JVD or lymphadenopathy. CARDIAC: S1, S2. No added sounds or murmurs. CHEST: Diminished air entry bilaterally. ABDOMEN: Soft, nontender. No guarding or rebound. EXTREMITIES: No cyanosis or clubbing. A 1+ edema. NEUROLOGIC: Generalized weakness. LABORATORY DATA: White count 5, hemoglobin 9.7. Chemistry: BUN 29, creatinine 1.97. INR 1.53. IMAGING STUDIES: Chest x-ray shows right lower lobe effusion versus infiltrate. Ultrasound of the l ower extremities showed no DVT. IMPRESSION AND PLAN: 1. Dyspnea likely secondary to congestive heart failure, possible pneumonia. 2. Evidence of renal insufficiency, unclear whether this is old or new. 3. Prior history of pulmonary embolus, on Eliquis. 4. History of diabetes mellitus. 5. Aortic stenosis. 6. Chronic obstructive pulmonary disease, previously on home O2. The patient will need: 1. CT chest noncontrast to evaluate pleural effusion versus pneumonia. 2. Consider renal consult with renal ultrasound and diuretics. 3. May require to hold anticoagulation for possible pleurocentesis depending upon CT findings. Thank you again, Dr. Segura, for this consult. Dictated By: PATTI MOYER/MIRTA Conf#: [id number] DID#: [id number] CC: JABIER SEGURA MD;*End[facility]*
[2018-11-18] MEDS: CEFTRIAXONE 2 GM/NS 50 ML IVPB SCH (20:36)
[2018-11-18] MEDS: ZYVOX 600 MG TAB PO SCH (20:37)
[2018-11-18] MEDS: INSULIN GLARGINE [LANTus] (100 UNITS/ML) SYG SC SCH (20:56)
[2018-11-19] VITALS (11 sets, daily range): BP systolic 106–117; BP diastolic 57–65; PULSE 67–83; RESP 17–22
[2018-11-19] MEDS: ACCU-CHEK XX SCH (02:00)
[2018-11-19] MEDS: ALBUTEROL/IPRATROPIUM (NEB) 3 ML AMP HHN SCH ×6 (02:05→20:55)
[2018-11-19] MEDS: FUROSEMIDE 40 MG INJ IV SCH (05:07)
[2018-11-19] MEDS: METHYLPREDNISOLONE 125 MG INJ IV SCH (05:07)
[2018-11-19] MEDS: PANTOPRAZOLE (EC) 40 MG TAB PO SCH (05:08)
[2018-11-19] MEDS: ZYVOX 600 MG TAB PO SCH ×2 (08:14→20:37)
[2018-11-19] MEDS: ASPIRIN 81 MG TAB PO SCH (08:14)
[2018-11-19] MEDS: TIOTROPIUM 18 MCG CAPSULE INHA DEV INH SCH (08:14)
[2018-11-19] MEDS: APIXABAN 5 MG TABLET PO SCH ×2 (08:14→20:37)
[2018-11-19] MEDS: FLUTICASONE/VILANTEROL 100-25 INH SCH (08:15)
[2018-11-19] MEDS: PSYLLIUM 28% PACKET PO SCH (08:20)
[2018-11-19] MEDS: METOPROLOL 25 MG TAB PO SCH ×2 (08:21→20:37)
[2018-11-19] MEDS: DILTIAZEM (CD) 120 MG CAP PO SCH ×2 (08:21→20:37)
[2018-11-19] MEDS: CLOTRIMAZOLE 1% 30 GM CR TOP SCH ×2 (08:22→20:37)
[2018-11-19] MEDS: INSULIN ASPART [NOVOLOG] 3 ML PEN SC SCH ×7 (08:34→20:51)
--- NOTE | 2018-11-19 08:54 | PN ---
DATE: 11/19/2018 SUBJECTIVE: The patient is stable. The patient continues to have shortness of breath and cough. No other events noted. OBJECTIVE: VITAL SIGNS: Blood pressure is 115/62, respirations 22, pulse 79, temperature 98.4. HEENT: Head is normocephalic. NECK: Supple. HEART: Regular rate. LUNGS: Show diminished breath sounds at the base. ABDOMEN: Soft, nontender to palpation without rebound or guarding. EXTREMITIES: Negative for clubbing, cyanosis. Positive edema. DERMATOLOGIC: No rashes. MUSCULOSKELETAL: No joint effusion. NEUROLOGIC: No change in exam. MEDICATIONS: Reviewed. LABORATORY DATA: Shows sodium 136, potassium 5.4, chloride 106, BUN 41, creatinine 2.35, phosphorus 5.1. ASSESSMENT AND PLAN: 1. Nonoliguric acute kidney injury on top of chronic kidney disease with previous baseline creatinin e of 1.5 mg/dL. Etiology of acute kidney injury is secondary to hemodynamics, possible nephrotoxicit y from vancomycin, questionable cardiorenal syndrome. The patient remains in injury phase of acute k idney injury, as renal function continued to decline. Plan at this point is to hold diuretic therapy . The patient's vancomycin has been discontinued. We would otherwise continue current treatment fátima n, supportive care, renally dose all medicines. 2. Mild hyperkalemia secondary to acute kidney injury. The patient will be placed on low-potassium diet. Continue to monitor. 3. Volume overload. Etiology may be multifactorial secondary to heart failure, diastolic, systolic. The patient's renal function has declined in diuretic therapy. We will hold Lasix and monitor sophia l function closely. Try to minimize IV fluids if possible. 4. Anemia. Monitor hemoglobin and hematocrit levels. 5. Mineral bone disorder. Monitor calcium and phosphorus levels. 6. Acute respiratory failure secondary to chronic obstructive pulmonary disease exacerbation. Karin nue medical management. Continue nebulizers, and steroids. 7. Lower extremity cellulitis. Continue current antibiotic regimen. 8. Paroxysmal atrial fibrillation. Continue medical management. 9. Diabetes. Continue current insulin regimen. 10. Obesity. Continue dietary modification. 11. Severe aortic stenosis. Continue medical management. Monitor volume status closely. Dictated By: JOCELINE OLEA/MIRTA Conf#: [id number] DID#: [id number] CC: JOCELINE MCCALLUM DO; JABIER SEBASTIAN MD;*End*
[2018-11-19] MEDS: ALBUMIN HUMAN 25% 50 ML IV SCH ×2 (10:20→18:01)
[2018-11-19] MEDS: DIGOXIN 0.125 MG TAB PO SCH (12:18)
--- NOTE | 2018-11-19 12:38 | CONS ---
Consult Date/Type/Reason Admit Date/Time Nov 16, 2018 at 17:17 Initial Consult Date Type of Consult Pulmonary Date/Time of Note DATE: 11/19/18 TIME: 12:36 Subjective Breathing somewhat better today but still having left-sided chest pain Objective Vital Signs Date Temp Pulse Resp B/P (MAP) Pulse Ox O2 O2 Flow FiO2 Time Delivery Rate 11/19/18 68 12:05 11/19/18 26 97 3.0 32 12:01 11/19/18 98.2 110/65 Nasal 11:33 (80) Cannula Intake and Output 11/18/18 11/18/18 11/19/18 1515:00 23:00 07:00 IntakeIntake Total 900 ml 660 ml 1000 ml OutputOutput Total 200 ml 700 ml BalanceBalance 900 ml 460 ml 300 ml Exam PHYSICAL EXAMINATION: GENERAL: Elderly-appearing lady. Mild distress but no accessory muscle use. VITAL SIGNS: NECK: Supple. No JVD or lymphadenopathy. CARDIAC: S1, S2. No added sounds or murmurs. CHEST: Diminished air entry bilaterally. ABDOMEN: Soft, nontender. No guarding or rebound. EXTREMITIES: No cyanosis or clubbing. A 1+ edema. NEUROLOGIC: Generalized weakness. Vent Setting Fraction of Inspired Oxygen pe: 32 Results/Medications Result Diagram: 11/17/18 0615 11/19/18 0546 Results 24 hrs Laboratory Tests Test 11/18/18 13:55 11/18/18 17:06 11/18/18 20:34 11/19/18 02:10 Urine Color JUAN Urine Clarity SLIGHTLY CLOUDY A Urine pH 5.0 Urine Specific 1.018 [place] Urine Ketones TRACE A Urine Nitrite NEGATIVE Urine Bilirubin 1+ H Urine 2+ H Urobilinogen Urine Leukocyte 1+ H Esterase Urine Microscopic 7 H RBC Urine Microscopic 8 H WBC Urine Bacteria FEW A Urine Yeast MODERATE A (Budding) Urine Hemoglobin NEGATIVE Urine Random 192.60 Creatinine Urine Random 14 L Sodium Urine Glucose NEGATIVE Urine Total 42.0 H Protein Bedside Glucose 139 182 249 H Test 11/19/18 05:46 11/19/18 07:59 11/19/18 12:17 Sodium Level 136 Potassium Level 5.4 H Chloride Level 106 Carbon Dioxide 20 L Level Anion Gap 10 Blood Urea 41 #H Nitrogen Creatinine 2.35 H Est Glomerular Filtrat Rate mL/min Glucose Level 263 #H Calcium Level 8.9 Phosphorus Level 5.1 H Magnesium Level 2.0 Bedside Glucose 257 H 269 H Medications Current Medications IV Flush (NS 3 ml) 3 ml PER PROTOCOL IV ; Start 11/16/18 at 19:30 Ondansetron HCl (Zofran Inj) 4 mg Q6H PRN IV NAUSEA/VOMITING; Start 11/16/18 at 19:30 Acetaminophen (Tylenol Tab) 650 mg Q6H PRN PO .PAIN 1-3 OR TEMP; Start 11/16/18 at 19:30 Acetaminophen/ Hydrocodone Bitart ([place] (5/325)) 1 tab Q6H PRN PO .MOD PAIN 4- 6 Last administered on 11/17/18 05:09; Admin Dose 1 TAB; Start 11/16/18 at 19:30 Morphine Sulfate (morphine) 2 mg Q4H PRN IV .SEVERE PAIN 7-10 Last administered on 11/18/18 00:13; Admin Dose 2 MG; Start 11/16/18 at 19:30 Docusate Sodium (Colace) 100 mg Q12H PRN PO .CONSTIPATION; Start 11/16/18 at 19:30 Zolpidem Tartrate (Ambien) 5 mg QHS PRN PO .INSOMNIA; Start 11/16/18 at 19:30 Apixaban (Eliquis) 2.5 mg BID PO Last administered on 11/19/18 08:14; Admin Dose 2.5 MG; Start 11/16/18 at 21:00 Aspirin (Aspirin) 81 mg DAILY PO Last administered on 11/19/18 08:14; Admin Dose 81 MG; Start 11/17/18 at 09:00 Clotrimazole (Lotrimin Cr) 1 applic BID TOP Last administered on 11/19/18 08:22; Admin Dose 1 APPLIC; Start 11/16/18 at 21:00 Digoxin (Digoxin) 0.125 mg DAILY@13 PO Last administered on 11/19/18 12:18; Admin Dose 0.125 MG; Start 11/17/18 at 13:00 Diltiazem HCl (Cardizem Cd) 120 mg BID PO Last administered on 11/19/18 08:21; Admin Dose 120 MG; Start 11/16/18 at 21:00 Hydralazine HCl (Apresoline) 50 mg Q8 PO Last administered on 11/18/18 22:40; Admin Dose 50 MG; Start 11/16/18 at 22:00 Metoprolol Tartrate (Lopressor) 75 mg BID PO Last administered on 11/19/18 08:21; Admin Dose 75 MG; Start 11/16/18 at 21:00 Tiotropium [place] (Spiriva) 1 inh DAILY INH Last administered on 11/19/18 08:14; Admin Dose 1 INH; Start 11/17/18 at 09:00 Diagnostic Test (Pha) (Accu-Chek) 1 ea 02 XX ; Start 11/17/18 at 02:00 Insulin Glargine (Lantus) 15 units DAILY@2000 SC Last administered on 11/18/18 20:56; Admin Dose 15 UNITS; Start 11/16/18 at 20:00 Insulin Aspart (Novolog Insulin Pen) 5 unit WITH MEALS SC Last administered on 11/19/18 12:24; Admin Dose 5 UNIT; Start 11/17/18 at 07:55 Insulin Aspart (Novolog Insulin Pen) NOVOLOG *MILD* ALGORITHM WITH MEALS BEDTIME SC Last administered on 11/19/18 12:24; Admin Dose 4 UNIT; Start 11/16/18 at 21:00 Furosemide (Lasix) 40 mg BID DIURETICS IV Last administered on 11/19/18 05:07; Admin Dose 40 MG; Start 11/17/18 at 06:00; Status Hold Pantoprazole (Protonix Tab) 40 mg DAILY@06 PO Last administered on 11/19/18 05:08; Admin Dose 40 MG; Start 11/17/18 at 06:00 Psyllium Hydrophilic Mucilloid (Metamucil) 1 pkt DAILY PO Last administered on 11/19/18 08:20; Admin Dose 1 PKT; Start 11/17/18 at 09:00 Fluticasone/ Vilanterol (Breo Ellipta 100-25 Mcg Inh) 1 inh DAILY INH Last administered on 11/19/18 08:15; Admin Dose 1 INH; Start 11/17/18 at 12:00 Ceftriaxone Sodium 50 ml @ 100 mls/hr Q24H IVPB Last administered on 11/18/18 20:36; Admin Dose 100 MLS/HR; Start 11/17/18 at 21:00 Albuterol/ Ipratropium (Duoneb) 3 ml Q4H RESP THERAPY HHN Last administered on 11/19/18at 12:00; Admin Dose 3 ML; Start 11/18/18 at 13:00 Linezolid (Zyvox) 600 mg BID PO Last administered on 11/19/18at 08:14; Admin Dose 600 MG; Start 11/18/18 at 21:00 Albumin Human 50 ml @ 100 mls/hr Q8H IV Last administered on 11/19/18at 10:20; Admin Dose 100 MLS/HR; Start 11/19/18 at 09:00; Stop 11/20/18 at 01:29 Assessment/Plan Hospital Course (Demo Recall) IMPRESSION AND PLAN: 1. Dyspnea likely secondary to congestive heart failure, possible pneumonia. 2. Evidence of renal insufficiency, unclear whether this is old or new. 3. Prior history of pulmonary embolus, on Eliquis. 4. History of diabetes mellitus. 5. Aortic stenosis. 6. Chronic obstructive pulmonary disease, previously on home O2. Plan 1. CT chest demonstrates moderate bilateral effusions with compressive atelectasis. 2. Gentle diuretics consider renal consult 3. Outpatient spirometry and sleep study PATTI FRANKS MD, [facility] Nov 19, 2018 12:38
--- NOTE | 2018-11-19 17:00 | PN ---
Date/Time of Note Date/Time of Note DATE: 11/19/18 TIME: 16:56 Assessment/Plan VTE Prophylaxis Risk score (from Nsg)>0 risk: 7 Pharmacological prophylaxis: apixaban Lines/Catheters IV Catheter Type (from Nrsg): Mid Line Assessment/Plan Hospital Course 1. Lower extremity cellulitis secondary to lymphedema-improved Zyvox and Rocephin IV Cultures noted ID consultation appreciated Lasix IV 2. Acute respiratory distress secondary to acute on chronic diastolic and systolic heart failure exacerbation on COPD BNP is elevated repeat chest x-ray does show CHF Continue scheduled DuoNeb, Spiriva and Breo Status post steroids Pulmonology consultation appreciated Lasix on hold secondary to acute kidney injury Continue cardiac meds 3. Paroxysmal A. fib Continue Eliquis 4. History of PE Continue Eliquis 5. Hypertension Continue home meds 6. Acute kidney injury on CKD likely secondary to hemodynamics and diuresis Nephrology consultation appreciated Vancomycin has been discontinued, Lasix on hold 7. Diabetes Continue home insulin, sugars are elevated likely secondary to recent steroids but steroids have been discontinued Monitor 8. Obesity Lifestyle changes 9. Aortic stenosis 10. COPD Continue home Breo as well as DuoNeb and Spiriva Prophylaxis: Eliquis DC planning: Not stable for DC, patient is not interested in eventual fci placement Result Diagram: 11/17/18 0615 11/19/18 1402 Results 24hrs Laboratory Tests Test 11/18/18 17:06 11/18/18 20:34 11/19/18 02:10 11/19/18 05:46 Bedside Glucose 139 182 249 H Sodium Level 136 Potassium Level 5.4 H Chloride Level 106 Carbon Dioxide Level 20 L Anion Gap 10 Blood Urea Nitrogen 41 #H Creatinine 2.35 H Est Glomerular Filtrat Rate mL/min Glucose Level 263 #H Calcium Level 8.9 Phosphorus Level 5.1 H Magnesium Level 2.0 Test 11/19/18 07:59 11/19/18 12:17 11/19/18 14:02 Bedside Glucose 257 H 269 H Sodium Level 137 Potassium Level 5.3 H Chloride Level 107 Carbon Dioxide Level 19 L Anion Gap 11 Blood Urea Nitrogen 45 H Creatinine 2.48 H Est Glomerular Filtrat Rate mL/min Glucose Level 258 H Calcium Level 9.1 Subjective 24 Hr Interval Summary Respiratory: shortness of breath Exam/Review of Systems Exam Vitals Vital Signs Date Temp Pulse Resp B/P (MAP) Pulse Ox O2 O2 Flow FiO2 Time Delivery Rate 11/19/18 69 16:13 11/19/18 30 96 3.0 32 16:10 11/19/18 98.0 108/59 15:01 (75) 11/19/18 Nasal 11:33 Cannula Intake and Output 11/18/18 11/18/18 11/19/18 1515:00 23:00 07:00 IntakeIntake Total 900 ml 660 ml 1000 ml OutputOutput Total 200 ml 700 ml BalanceBalance 900 ml 460 ml 300 ml Constitutional: alert, oriented Respiratory: crackles/rales Cardiovascular: regular rate and rhythm Gastrointestinal: soft; No distended Musculoskeletal: nl extremities to inspection Results Results 24hrs Laboratory Tests Test 11/18/18 17:06 11/18/18 20:34 11/19/18 02:10 11/19/18 05:46 Bedside Glucose 139 182 249 H Sodium Level 136 Potassium Level 5.4 H Chloride Level 106 Carbon Dioxide Level 20 L Anion Gap 10 Blood Urea Nitrogen 41 #H Creatinine 2.35 H Est Glomerular Filtrat Rate mL/min Glucose Level 263 #H Calcium Level 8.9 Phosphorus Level 5.1 H Magnesium Level 2.0 Test 11/19/18 07:59 11/19/18 12:17 11/19/18 14:02 Bedside Glucose 257 H 269 H Sodium Level 137 Potassium Level 5.3 H Chloride Level 107 Carbon Dioxide Level 19 L Anion Gap 11 Blood Urea Nitrogen 45 H Creatinine 2.48 H Est Glomerular Filtrat Rate mL/min Glucose Level 258 H Calcium Level 9.1 Medications Medication Current Medications IV Flush (NS 3 ml) 3 ml PER PROTOCOL IV ; Start 11/16/18 at 19:30 Ondansetron HCl (Zofran Inj) 4 mg Q6H PRN IV NAUSEA/VOMITING; Start 11/16/18 at 19:30 Acetaminophen (Tylenol Tab) 650 mg Q6H PRN PO .PAIN 1-3 OR TEMP; Start 11/16/18 at 19:30 Acetaminophen/ Hydrocodone Bitart ([place] (5/325)) 1 tab Q6H PRN PO .MOD PAIN 4- 6 Last administered on 11/17/18at 05:09; Admin Dose 1 TAB; Start 11/16/18 at 19:30 Morphine Sulfate (morphine) 2 mg Q4H PRN IV .SEVERE PAIN 7-10 Last administered on 11/18/18 00:13; Admin Dose 2 MG; Start 11/16/18 at 19:30 Docusate Sodium (Colace) 100 mg Q12H PRN PO .CONSTIPATION; Start 11/16/18 at 19:30 Zolpidem Tartrate (Ambien) 5 mg QHS PRN PO .INSOMNIA; Start 11/16/18 at 19:30 Apixaban (Eliquis) 2.5 mg BID PO Last administered on 11/19/18 08:14; Admin Dose 2.5 MG; Start 11/16/18 at 21:00 Aspirin (Aspirin) 81 mg DAILY PO Last administered on 11/19/18 08:14; Admin Dose 81 MG; Start 11/17/18 at 09:00 Clotrimazole (Lotrimin Cr) 1 applic BID TOP Last administered on 11/19/18 08:22; Admin Dose 1 APPLIC; Start 11/16/18 at 21:00 Digoxin (Digoxin) 0.125 mg DAILY@13 PO Last administered on 11/19/18 12:18; Admin Dose 0.125 MG; Start 11/17/18 at 13:00 Diltiazem HCl (Cardizem Cd) 120 mg BID PO Last administered on 11/19/18 08:21; Admin Dose 120 MG; Start 11/16/18 at 21:00 Hydralazine HCl (Apresoline) 50 mg Q8 PO Last administered on 11/19/18 14:54; Admin Dose 50 MG; Start 11/16/18 at 22:00 Metoprolol Tartrate (Lopressor) 75 mg BID PO Last administered on 11/19/18 08:21; Admin Dose 75 MG; Start 11/16/18 at 21:00 Tiotropium [place] (Spiriva) 1 inh DAILY INH Last administered on 11/19/18 08:14; Admin Dose 1 INH; Start 11/17/18 at 09:00 Diagnostic Test (Pha) (Accu-Chek) 1 ea 02 XX ; Start 11/17/18 at 02:00 Insulin Glargine (Lantus) 15 units DAILY@2000 SC Last administered on 11/18/18 20:56; Admin Dose 15 UNITS; Start 11/16/18 at 20:00 Insulin Aspart (Novolog Insulin Pen) 5 unit WITH MEALS SC Last administered on 11/19/18 12:24; Admin Dose 5 UNIT; Start 11/17/18 at 07:55 Insulin Aspart (Novolog Insulin Pen) NOVOLOG *MILD* ALGORITHM WITH MEALS BEDTIME SC Last administered on 11/19/18 08:35; Admin Dose 4 UNIT; Start 11/16/18 at 21:00 Furosemide (Lasix) 40 mg BID DIURETICS IV Last administered on 11/19/18 05:07; Admin Dose 40 MG; Start 11/17/18 at 06:00; Status Hold Pantoprazole (Protonix Tab) 40 mg DAILY@06 PO Last administered on 11/19/18 05:08; Admin Dose 40 MG; Start 11/17/18 at 06:00 Psyllium Hydrophilic Mucilloid (Metamucil) 1 pkt DAILY PO Last administered on 11/19/18 08:20; Admin Dose 1 PKT; Start 11/17/18 at 09:00 Fluticasone/ Vilanterol (Breo Ellipta 100-25 Mcg Inh) 1 inh DAILY INH Last a dministered on 11/19/18 08:15; Admin Dose 1 INH; Start 11/17/18 at 12:00 Ceftriaxone Sodium 50 ml @ 100 mls/hr Q24H IVPB Last administered on 11/18/18 20:36; Admin Dose 100 MLS/HR; Start 11/17/18 at 21:00 Albuterol/ Ipratropium (Duoneb) 3 ml Q4H RESP THERAPY HHN Last administered on 11/19/18 16:08; Admin Dose 3 ML; Start 11/18/18 at 13:00 Linezolid (Zyvox) 600 mg BID PO Last administered on 11/19/18 08:14; Admin Dose 600 MG; Start 11/18/18 at 21:00 Albumin Human 50 ml @ 100 mls/hr Q8H IV Last administered on 11/19/18 10:20; Admin Dose 100 MLS/HR; Start 11/19/18 at 09:00; Stop 11/20/18 at 01:29 JABIER SEBASTIAN Nov 19, 2018 17:00
[2018-11-19] MEDS: CEFTRIAXONE 2 GM/NS 50 ML IVPB SCH (20:52)
[2018-11-19] MEDS: INSULIN GLARGINE [LANTus] (100 UNITS/ML) SYG SC SCH (21:02)
[2018-11-20] VITALS (9 sets, daily range): BP systolic 110–125; BP diastolic 52–60; PULSE 63–84; RESP 18–24
[2018-11-20] MEDS: ALBUTEROL/IPRATROPIUM (NEB) 3 ML AMP HHN SCH ×7 (01:00→20:48)
[2018-11-20] MEDS: ALBUMIN HUMAN 25% 50 ML IV SCH (01:56)
[2018-11-20] MEDS: ACCU-CHEK XX SCH (01:59)
[2018-11-20] MEDS ORDERED: METHYLPREDNISOLONE 125 MG INJ IV ONE (05:30)
[2018-11-20] MEDS: PANTOPRAZOLE (EC) 40 MG TAB PO SCH (05:47)
[2018-11-20] MEDS: INSULIN ASPART [NOVOLOG] 3 ML PEN SC SCH ×7 (08:05→21:00)
--- NOTE | 2018-11-20 09:11 | PN ---
DATE: 11/20/2018 SUBJECTIVE: The patient continues to have respiratory distress, shortness of breath. The patient is receiving nebulizers. Continues to be on IV Solu- Medrol. No other events noted. The patient's urinary output is adequate. OBJECTIVE: VITAL SIGNS: Blood pressure is 125/58, respiratory rate 20, pulse 71, temperature 97.4. HEENT: Head is normocephalic. NECK: Supple. HEART: Regular rate. LUNGS: Show diminished breath sounds at the base. ABDOMEN: Soft, nontender to palpation without rebound or guarding. EXTREMITIES: Negative for clubbing, cyanosis. Positive edema. DERMATOLOGIC: No rashes. MUSCULOSKELETAL: No joint effusion. NEUROLOGIC: No change in exam. MEDICATIONS: The patient's medications have been reviewed. LABORATORY DATA: From 11/19/2018 is pending. IMAGING: Patient's chest x-ray from 11/20/2018 was reviewed, showed worsening pulmonary congestion. Ct chest: reviewed, possible cirrhosis ASSESSMENT AND PLAN: 1. Nonoliguric acute kidney injury with previous baseline creatinine of 1.5 mg/dL. Etiology of acute kidney injury is multifactorial, likely hemodynamics, cardiorenal syndrome; however, given ct findings suggesting cirrhosis, HRS needs to be considered. The patient's renal function has declined in the last 24 to 48 hours. The patient's diuretics have been on hold. Urinary output has been adequate. The patient's urine electrolytes were reviewed. FENa was less than 1% which can be seen in prerenal etiology, i.e. cardiorenal syndrome, HRS. At this point, would reintroduce diuretics given the patient's worsening pulmonary congestion. If the patient is unable to be adequately diuresed fand if renal function should further decline, would consider renal replacement therapy. 2. Mild hyperkalemia secondary to acute kidney injury and hyperglycemia. Continue low-potassium diet and monitor potassium levels closely. 3. Volume overload secondary to acute systolic, diastolic heart failure. The patient's repeat chest x-ray shows evidence of pulmonary congestion. Will reintroduce diuretic therapy, monitor renal function closely. 4. Anemia. Monitor hemoglobin and hematocrit levels. 5. Mineral bone disorder, monitor calcium and phosphorus levels. 6. Acute respiratory failure, etiology secondary to chronic heart failure, chronic obstructive pulmonary disease exacerbation. Continue nebulized steroids. Will reintroduce diuretics and monitor closely. 7. Lower extremity cellulitis with lymphedema. Continue antibiotic therapy. 8. Paroxysmal atrial fibrillation. Continue medical management. 9. Diabetes. Continue current insulin regimen. 10. Obesity. Continue dietary modification. 11. Severe aortic stenosis. Continue to monitor. May consider repeat 2D echo to evaluate valve area. Dictated By: JOCELINE MCCALLUM DO NR/NTS Conf#: [id number] DID#: [id number] CC: JABIER SEBASTIAN MD;*End* [facility]
[2018-11-20] MEDS: ZYVOX 600 MG TAB PO SCH ×2 (09:28→21:35)
[2018-11-20] MEDS: ASPIRIN 81 MG TAB PO SCH (09:28)
[2018-11-20] MEDS: PSYLLIUM 28% PACKET PO SCH (09:28)
[2018-11-20] MEDS: TIOTROPIUM 18 MCG CAPSULE INHA DEV INH SCH (09:28)
[2018-11-20] MEDS: APIXABAN 5 MG TABLET PO SCH ×2 (09:28→21:34)
[2018-11-20] MEDS: FLUTICASONE/VILANTEROL 100-25 INH SCH (09:30)
[2018-11-20] MEDS: DILTIAZEM (CD) 120 MG CAP PO SCH ×2 (09:30→21:34)
[2018-11-20] MEDS: CLOTRIMAZOLE 1% 30 GM CR TOP SCH ×2 (09:30→21:36)
[2018-11-20] MEDS: METOPROLOL 25 MG TAB PO SCH ×2 (09:30→21:00)
[2018-11-20] MEDS: DIGOXIN 0.125 MG TAB PO SCH (13:52)
--- NOTE | 2018-11-20 15:50 | PN ---
Date/Time of Note Date/Time of Note DATE: 11/20/18 TIME: 15:48 Assessment/Plan VTE Prophylaxis Risk score (from Nsg)>0 risk: 7 Pharmacological prophylaxis: apixaban Lines/Catheters IV Catheter Type (from Nrsg): Mid Line Assessment/Plan Hospital Course 1. Lower extremity cellulitis secondary to lymphedema-improved Zyvox and Rocephin IV Cultures noted ID consultation appreciated Lasix IV 2. Acute respiratory distress secondary to acute on chronic diastolic and systolic heart failure exacerbation on COPD BNP is elevated repeat chest x-ray does show CHF Continue scheduled DuoNeb, Spiriva and Breo Status post steroids Pulmonology consultation appreciated Continue Lasix Continue cardiac meds 3. Paroxysmal A. fib Continue Eliquis 4. History of PE Continue Eliquis 5. Hypertension Continue home meds 6. Acute kidney injury on CKD likely secondary to hemodynamics and diuresis Nephrology consultation appreciated, patient will require temporary hemodialysis due to volume overload and hyperkalemia Vancomycin has been discontinued 7. Diabetes Sugars are currently elevated, increase basal and mealtime insulin Renal function has declined and hence will increase insulin gradually Monitor 8. Obesity Lifestyle changes 9. Aortic stenosis 10. COPD Continue home Breo as well as DuoNeb and Spiriva Prophylaxis: Eliquis DC planning: Not stable for DC, patient is not interested in eventual shelter placement Result Diagram: 11/20/18 1003 11/20/18 1003 Results 24hrs Laboratory Tests Test 11/19/18 17:34 11/19/18 20:34 11/20/18 01:58 11/20/18 07:59 Bedside Glucose 305 H 281 H 265 H 255 H Test 11/20/18 10:03 11/20/18 12:14 White Blood Count 11.3 #H Red Blood Count 4.41 Hemoglobin 9.9 L Hematocrit 33.3 L Mean Corpuscular 75.5 L Volume Mean Corpuscular 22.4 L Hemoglobin Mean Corpuscular 29.7 L Hemoglobin Concent Red Cell Distribution 19.7 H Width Platelet Count 274 Mean Platelet Volume 10.7 H Immature Granulocytes 0.700 H % Neutrophils % 93.6 H Lymphocytes % 2.7 L Monocytes % 2.9 Eosinophils % 0.0 Basophils % 0.1 Nucleated Red Blood 0.2 H Cells % Immature Granulocytes 0.080 H # Neutrophils # 10.6 H Lymphocytes # 0.3 L Monocytes # 0.3 Eosinophils # 0.0 Basophils # 0.0 Nucleated Red Blood 0.0 Cells # Sodium Level 138 Potassium Level 5.6 H Chloride Level 103 Carbon Dioxide Level 20 L Anion Gap 15 H Blood Urea Nitrogen 53 H Creatinine 2.95 H Est Glomerular Filtrat Rate mL/min Glucose Level 279 H Calcium Level 9.3 Phosphorus Level 5.9 H Magnesium Level 2.1 Bedside Glucose 355 H Subjective 24 Hr Interval Summary Respiratory: shortness of breath Exam/Review of Systems Exam Vitals Vital Signs Date Temp Pulse Resp B/P (MAP) Pulse Ox O2 O2 Flow FiO2 Time Delivery Rate 11/20/18 97.4 84 22 110/52 100 Nasal 14:52 (71) Cannula 11/20/18 3.0 14:02 11/20/18 32 05:26 Intake and Output 11/19/18 11/19/18 11/20/18 1515:00 23:00 07:00 IntakeIntake Total 680 ml 350 ml OutputOutput Total 300 ml 420 ml BalanceBalance 380 ml -70 ml Constitutional: alert Respiratory: crackles/rales Cardiovascular: regular rate and rhythm Gastrointestinal: soft; No distended Musculoskeletal: nl extremities to inspection Results Results 24hrs Laboratory Tests Test 11/19/18 17:34 11/19/18 20:34 11/20/18 01:58 11/20/18 07:59 Bedside Glucose 305 H 281 H 265 H 255 H Test 11/20/18 10:03 11/20/18 12:14 White Blood Count 11.3 #H Red Blood Count 4.41 Hemoglobin 9.9 L Hematocrit 33.3 L Mean Corpuscular 75.5 L Volume Mean Corpuscular 22.4 L Hemoglobin Mean Corpuscular 29.7 L Hemoglobin Concent Red Cell Distribution 19.7 H Width Platelet Count 274 Mean Platelet Volume 10.7 H Immature Granulocytes 0.700 H % Neutrophils % 93.6 H Lymphocytes % 2.7 L Monocytes % 2.9 Eosinophils % 0.0 Basophils % 0.1 Nucleated Red Blood 0.2 H Cells % Immature Granulocytes 0.080 H # Neutrophils # 10.6 H Lymphocytes # 0.3 L Monocytes # 0.3 Eosinophils # 0.0 Basophils # 0.0 Nucleated Red Blood 0.0 Cells # Sodium Level 138 Potassium Level 5.6 H Chloride Level 103 Carbon Dioxide Level 20 L Anion Gap 15 H Blood Urea Nitrogen 53 H Creatinine 2.95 H Est Glomerular Filtrat Rate mL/min Glucose Level 279 H Calcium Level 9.3 Phosphorus Level 5.9 H Magnesium Level 2.1 Bedside Glucose 355 H Medications Medication Current Medications IV Flush (NS 3 ml) 3 ml PER PROTOCOL IV ; Start 11/16/18 at 19:30 Ondansetron HCl (Zofran Inj) 4 mg Q6H PRN IV NAUSEA/VOMITING; Start 11/16/18 at 19:30 Acetaminophen (Tylenol Tab) 650 mg Q6H PRN PO .PAIN 1-3 OR TEMP; Start 11/16/18 at 19:30 Acetaminophen/ Hydrocodone Bitart ([place] (5/325)) 1 tab Q6H PRN PO .MOD PAIN 4- 6 Last administered on 11/17/18 05:09; Admin Dose 1 TAB; Start 11/16/18 at 19:30 Morphine Sulfate (morphine) 2 mg Q4H PRN IV .SEVERE PAIN 7-10 Last administered on 11/18/18 00:13; Admin Dose 2 MG; Start 11/16/18 at 19:30 Docusate Sodium (Colace) 100 mg Q12H PRN PO .CONSTIPATION; Start 11/16/18 at 19:30 Zolpidem Tartrate (Ambien) 5 mg QHS PRN PO .INSOMNIA; Start 11/16/18 at 19:30 Apixaban (Eliquis) 2.5 mg BID PO Last administered on 11/20/18 09:28; Admin Dose 2.5 MG; Start 11/16/18 at 21:00 Aspirin (Aspirin) 81 mg DAILY PO Last administered on 11/20/18 09:28; Admin Dose 81 MG; Start 11/17/18 at 09:00 Clotrimazole (Lotrimin Cr) 1 applic BID TOP Last administered on 11/20/18 09:30; Admin Dose 1 APPLIC; Start 11/16/18 at 21:00 Digoxin (Digoxin) 0.125 mg DAILY@13 PO Last administered on 11/20/18 13:52; Admin Dose 0.125 MG; Start 11/17/18 at 13:00 Diltiazem HCl (Cardizem Cd) 120 mg BID PO Last administered on 11/20/18 09:30; Admin Dose 120 MG; Start 11/16/18 at 21:00 Hydralazine HCl (Apresoline) 50 mg Q8 PO Last administered on 11/20/18 13:52; Admin Dose 50 MG; Start 11/16/18 at 22:00 Metoprolol Tartrate (Lopressor) 75 mg BID PO Last administered on 11/20/18 09:30; Admin Dose 75 MG; Start 11/16/18 at 21:00 Tiotropium [place] (Spiriva) 1 inh DAILY INH Last administered on 11/20/18 09:28; Admin Dose 1 INH; Start 11/17/18 at 09:00 Diagnostic Test (Pha) (Accu-Chek) 1 ea 02 XX ; Start 11/17/18 at 02:00 Insulin Glargine (Lantus) 15 units DAILY@2000 SC Last administered on 11/19/18 21:02; Admin Dose 15 UNITS; Start 11/16/18 at 20:00 Insulin Aspart (Novolog Insulin Pen) 5 unit WITH MEALS SC Last administered on 11/20/18 12:31; Admin Dose 5 UNIT; Start 11/17/18 at 07:55 Insulin Aspart (Novolog Insulin Pen) NOVOLOG *MILD* ALGORITHM WITH MEALS BEDTIME SC Last administered on 11/20/18 12:30; Admin Dose 7 UNIT; Start 11/16/18 at 21:00 Furosemide (Lasix) 40 mg BID DIURETICS IV Last administered on 11/19/18 05:07; Admin Dose 40 MG; Start 11/17/18 at 06:00 Pantoprazole (Protonix Tab) 40 mg DAILY@06 PO Last administered on 11/20/18 05:47; Admin Dose 40 MG; Start 11/17/18 at 06:00 Psyllium Hydrophilic Mucilloid (Metamucil) 1 pkt DAILY PO Last administered on 11/20/18 09:28; Admin Dose 1 PKT; Start 11/17/18 at 09:00 Fluticasone/ Vilanterol (Breo Ellipta 100-25 Mcg Inh) 1 inh DAILY INH Last administered on 11/20/18 09:30; Admin Dose 1 INH; Start 11/17/18 at 12:00 Ceftriaxone Sodium 50 ml @ 100 mls/hr Q24H IVPB Last administered on 11/19/18 20:52; Admin Dose 100 MLS/HR; Start 11/17/18 at 21:00 Albuterol/ Ipratropium (Duoneb) 3 ml Q4H RESP THERAPY HHN Last administered on 11/20/18at 13:57; Admin Dose 3 ML; Start 11/18/18 at 13:00 Linezolid (Zyvox) 600 mg BID PO Last administered on 11/20/18at 09:28; Admin Dose 600 MG; Start 11/18/18 at 21:00 JABIER SEBASTIAN Nov 20, 2018 15:50
--- NOTE | 2018-11-20 16:16 | CONS ---
Consult Date/Type/Reason Admit Date/Time Nov 16, 2018 at 17:17 Initial Consult Date Type of Consult Pulmonary Date/Time of Note DATE: 11/20/18 TIME: 15:31 Subjective still short of breath. Objective Vital Signs Date Temp Pulse Resp B/P (MAP) Pulse Ox O2 O2 Flow FiO2 Time Delivery Rate 11/20/18 97.4 84 22 110/52 100 Nasal 14:52 (71) Cannula 11/20/18 3.0 14:02 11/20/18 32 05:26 Intake and Output 11/19/18 11/19/18 11/20/18 1414:59 22:59 06:59 IntakeIntake Total 680 ml 350 ml OutputOutput Total 300 ml 420 ml BalanceBalance 380 ml -70 ml Exam PHYSICAL EXAMINATION: GENERAL: A chronically ill-appearing gentleman, appears comfortable at rest, in no acute distress, no accessory muscle use. VITAL SIGNS: as above. NECK: Supple. No JVD or lymphadenopathy. CARDIAC: S1, S2. No added sounds or murmurs. CHEST: Diminished air entry bilaterally. ABDOMEN: Soft, nontender. No guarding or rebound. EXTREMITIES: No cyanosis, clubbing or edema. NEUROLOGIC: Generalized weakness. Vent Setting Fraction of Inspired Oxygen pe: 32 Results/Medications Result Diagram: 11/20/18 1003 11/20/18 1003 Results 24 hrs Laboratory Tests Test 11/19/18 17:34 11/19/18 20:34 11/20/18 01:58 11/20/18 07:59 Bedside Glucose 305 H 281 H 265 H 255 H Test 11/20/18 10:03 11/20/18 12:14 White Blood Count 11.3 #H Red Blood Count 4.41 Hemoglobin 9.9 L Hematocrit 33.3 L Mean Corpuscular 75.5 L Volume Mean Corpuscular 22.4 L Hemoglobin Mean Corpuscular 29.7 L Hemoglobin Concent Red Cell Distribution 19.7 H Width Platelet Count 274 Mean Platelet Volume 10.7 H Immature Granulocytes 0.700 H % Neutrophils % 93.6 H Lymphocytes % 2.7 L Monocytes % 2.9 Eosinophils % 0.0 Basophils % 0.1 Nucleated Red Blood 0.2 H Cells % Immature Granulocytes 0.080 H # Neutrophils # 10.6 H Lymphocytes # 0.3 L Monocytes # 0.3 Eosinophils # 0.0 Basophils # 0.0 Nucleated Red Blood 0.0 Cells # Sodium Level 138 Potassium Level 5.6 H Chloride Level 103 Carbon Dioxide Level 20 L Anion Gap 15 H Blood Urea Nitrogen 53 H Creatinine 2.95 H Est Glomerular Filtrat Rate mL/min Glucose Level 279 H Calcium Level 9.3 Phosphorus Level 5.9 H Magnesium Level 2.1 Bedside Glucose 355 H Medications Current Medications IV Flush (NS 3 ml) 3 ml PER PROTOCOL IV ; Start 11/16/18 at 19:30 Ondansetron HCl (Zofran Inj) 4 mg Q6H PRN IV NAUSEA/VOMITING; Start 11/16/18 at 19:30 Acetaminophen (Tylenol Tab) 650 mg Q6H PRN PO .PAIN 1-3 OR TEMP; Start 11/16/18 at 19:30 Acetaminophen/ Hydrocodone Bitart ([place] (5/325)) 1 tab Q6H PRN PO .MOD PAIN 4- 6 Last administered on 11/17/18 05:09; Admin Dose 1 TAB; Start 11/16/18 at 19:30 Morphine Sulfate (morphine) 2 mg Q4H PRN IV .SEVERE PAIN 7-10 Last administered on 11/18/18 00:13; Admin Dose 2 MG; Start 11/16/18 at 19:30 Docusate Sodium (Colace) 100 mg Q12H PRN PO .CONSTIPATION; Start 11/16/18 at 19:30 Zolpidem Tartrate (Ambien) 5 mg QHS PRN PO .INSOMNIA; Start 11/16/18 at 19:30 Apixaban (Eliquis) 2.5 mg BID PO Last administered on 11/20/18 09:28; Admin Dose 2.5 MG; Start 11/16/18 at 21:00 Aspirin (Aspirin) 81 mg DAILY PO Last administered on 11/20/18 09:28; Admin Dose 81 MG; Start 11/17/18 at 09:00 Clotrimazole (Lotrimin Cr) 1 applic BID TOP Last administered on 11/20/18 09:30; Admin Dose 1 APPLIC; Start 11/16/18 at 21:00 Digoxin (Digoxin) 0.125 mg DAILY@13 PO Last administered on 11/20/18 13:52; Admin Dose 0.125 MG; Start 11/17/18 at 13:00 Diltiazem HCl (Cardizem Cd) 120 mg BID PO Last administered on 11/20/18 09:30; Admin Dose 120 MG; Start 11/16/18 at 21:00 Hydralazine HCl (Apresoline) 50 mg Q8 PO Last administered on 11/20/18 13:52; Admin Dose 50 MG; Start 11/16/18 at 22:00 Metoprolol Tartrate (Lopressor) 75 mg BID PO Last administered on 11/20/18 09:30; Admin Dose 75 MG; Start 11/16/18 at 21:00 Tiotropium [place] (Spiriva) 1 inh DAILY INH Last administered on 11/20/18 09:28; Admin Dose 1 INH; Start 11/17/18 at 09:00 Diagnostic Test (Pha) (Accu-Chek) 1 ea 02 XX ; Start 11/17/18 at 02:00 Insulin Glargine (Lantus) 15 units DAILY@2000 SC Last administered on 11/19/18 21:02; Admin Dose 15 UNITS; Start 11/16/18 at 20:00 Insulin Aspart (Novolog Insulin Pen) 5 unit WITH MEALS SC Last administered on 11/20/18 12:31; Admin Dose 5 UNIT; Start 11/17/18 at 07:55 Insulin Aspart (Novolog Insulin Pen) NOVOLOG *MILD* ALGORITHM WITH MEALS BEDTIME SC Last administered on 11/20/18 12:30; Admin Dose 7 UNIT; Start 11/16/18 at 21:00 Furosemide (Lasix) 40 mg BID DIURETICS IV Last administered on 11/19/18 05:07; Admin Dose 40 MG; Start 11/17/18 at 06:00 Pantoprazole (Protonix Tab) 40 mg DAILY@06 PO Last administered on 11/20/18 05:47; Admin Dose 40 MG; Start 11/17/18 at 06:00 Psyllium Hydrophilic Mucilloid (Metamucil) 1 pkt DAILY PO Last administered on 11/20/18 09:28; Admin Dose 1 PKT; Start 11/17/18 at 09:00 Fluticasone/ Vilanterol (Breo Ellipta 100-25 Mcg Inh) 1 inh DAILY INH Last administered on 11/20/18 09:30; Admin Dose 1 INH; Start 11/17/18 at 12:00 Ceftriaxone Sodium 50 ml @ 100 mls/hr Q24H IVPB Last administered on 11/19/18at 20:52; Admin Dose 100 MLS/HR; Start 11/17/18 at 21:00 Albuterol/ Ipratropium (Duoneb) 3 ml Q4H RESP THERAPY HHN Last administered on 11/20/18at 13:57; Admin Dose 3 ML; Start 11/18/18 at 13:00 Linezolid (Zyvox) 600 mg BID PO Last administered on 11/20/18at 09:28; Admin Dose 600 MG; Start 11/18/18 at 21:00 Assessment/Plan Hospital Course (Demo Recall) IMPRESSION AND PLAN: 1. Dyspnea likely secondary to congestive heart failure, possible pneumonia. 2. Worsening renal failure. 3. Prior history of pulmonary embolus, on Eliquis. 4. History of diabetes mellitus. 5. Aortic stenosis. 6. cxr shows ongoing pulm edema. Plan 1. renal recs, may require HD if renal function deteriorates. 2. Gentle diuretics consider renal consult 3. Steroid taper 4. Aspiration precautions. PATTI FRANKS MD, [facility] Nov 20, 2018 15:41
[2018-11-20] MEDS: HYDROCODONE/APAP (5/325) TAB PO PRN (17:10)
[2018-11-20] MEDS: FUROSEMIDE 40 MG INJ IV SCH (17:10)
--- NOTE | 2018-11-20 19:28 | CONS ---
Assessment/Plan Assessment/Plan Hospital Course (Demo Recall) 1230 Patient is alert, tachypneic, NAD, afebr ile Microbiology: Blood culture + Staph 1 out of 2 sets, urine culture + yeast. Left lower extremity wound culture growing Enterobacter cloaca, gram-negative rods, staph species Chest x-ray this morning revealed CHF bilateral pleural effusions left greater than right and diffuse interstitial edema Indwelling: [place] Antimicrobials: Zyvox Rocephin Physical examination: Well-developed morbidly obese -[place] woman who is awake in no distress. Head atraumatic normocephalic sclera nonicteric. Neck is supple. Chest rise symmetrical breath sounds with diffuse crackles and expiratory wheezes. Heart: S1-S2.. Abdomen obese soft, bowel sounds present. Extremities: Bilateral lower extremities edema erythema and multiple wounds, le ft more than right Assessment: 1. Sepsis, present on admission 2. Bacteremia cw contaminant 3. 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 Urinary tract infection 5. Acute hypoxemic respiratory failure secondary to pulmonary edema and CHF exacerbation, poss PNA 6. Morbid obesity 7. Atrial fibrillation 8. Diabetes 9. Acute kidney failure Plan: Remains unchanged, still SOB, change Rocephin to Cefepime, add Diflucan, continue local wound care, f/u pulmonary/renal rec-s [facility] staff Consultation Date/Type/Reason Admit Date/Time Nov 16, 2018 at 17:17 Initial Consult Date Type of Consult id Date/Time of Note DATE: 11/20/18 TIME: 19:24 Exam/Review of Systems Exam Vitals Vital Signs Date Temp Pulse Resp B/P (MAP) Pulse Ox O2 O2 Flow FiO2 Time Delivery Rate 11/20/18 3.0 18:08 11/20/18 94 17:19 11/20/18 71 20 Nasal 17:18 Cannula 11/20/18 32 16:16 11/20/18 97.4 110/52 14:52 (71) Intake and Output 11/19/18 11/19/18 11/20/18 1515:00 23:00 07:00 IntakeIntake Total 680 ml 350 ml OutputOutput Total 300 ml 420 ml BalanceBalance 380 ml -70 ml Results Result Diagram: 11/20/18 1003 11/20/18 1003 Results 24hrs Laboratory Tests Test 11/19/18 20:34 11/20/18 01:58 11/20/18 07:59 11/20/18 10:03 Bedside Glucose 281 H 265 H 255 H White Blood Count 11.3 #H Red Blood Count 4.41 Hemoglobin 9.9 L Hematocrit 33.3 L Mean Corpuscular Volume 75.5 L Mean Corpuscular 22.4 L Hemoglobin Mean Corpuscular 29.7 L Hemoglobin Concent Red Cell Distribution 19.7 H Width Platelet Count 274 Mean Platelet Volume 10.7 H Immature Granulocytes % 0.700 H Neutrophils % 93.6 H Lymphocytes % 2.7 L Monocytes % 2.9 Eosinophils % 0.0 Basophils % 0.1 Nucleated Red Blood 0.2 H Cells % Immature Granulocytes # 0.080 H Neutrophils # 10.6 H Lymphocytes # 0.3 L Monocytes # 0.3 Eosinophils # 0.0 Basophils # 0.0 Nucleated Red Blood 0.0 Cells # Sodium Level 138 Potassium Level 5.6 H Chloride Level 103 Carbon Dioxide Level 20 L Anion Gap 15 H Blood Urea Nitrogen 53 H Creatinine 2.95 H Est Glomerular Filtrat Rate mL/min Glucose Level 279 H Calcium Level 9.3 Phosphorus Level 5.9 H Magnesium Level 2.1 Test 11/20/18 12:14 11/20/18 16:58 Bedside Glucose 355 H 180 Medications Medication Current Medications IV Flush (NS 3 ml) 3 ml PER PROTOCOL IV ; Start 11/16/18 at 19:30 Ondansetron HCl (Zofran Inj) 4 mg Q6H PRN IV NAUSEA/VOMITING; Start 11/16/18 at 19:30 Acetaminophen (Tylenol Tab) 650 mg Q6H PRN PO .PAIN 1-3 OR TEMP; Start 11/16/18 at 19:30 Acetaminophen/ Hydrocodone Bitart ([place] (5/325)) 1 tab Q6H PRN PO .MOD PAIN 4- 6 Last administered on 11/20/18at 17:10; Admin Dose 1 TAB; Start 11/16/18 at 19:30 Morphine Sulfate (morphine) 2 mg Q4H PRN IV .SEVERE PAIN 7-10 Last administered on 11/18/18at 00:13; Admin Dose 2 MG; Start 11/16/18 at 19:30 Docusate Sodium (Colace) 100 mg Q12H PRN PO .CONSTIPATION; Start 11/16/18 at 19:30 Zolpidem Tartrate (Ambien) 5 mg QHS PRN PO .INSOMNIA; Start 11/16/18 at 19:30 Apixaban (Eliquis) 2.5 mg BID PO Last administered on 11/20/18 09:28; Admin Dose 2.5 MG; Start 11/16/18 at 21:00 Aspirin (Aspirin) 81 mg DAILY PO Last administered on 11/20/18 09:28; Admin Dose 81 MG; Start 11/17/18 at 09:00 Clotrimazole (Lotrimin Cr) 1 applic BID TOP Last administered on 11/20/18 09:3 0; Admin Dose 1 APPLIC; Start 11/16/18 at 21:00 Digoxin (Digoxin) 0.125 mg DAILY@13 PO Last administered on 11/20/18 13:52; Admin Dose 0.125 MG; Start 11/17/18 at 13:00 Diltiazem HCl (Cardizem Cd) 120 mg BID PO Last administered on 11/20/18 09:30; Admin Dose 120 MG; Start 11/16/18 at 21:00 Hydralazine HCl (Apresoline) 50 mg Q8 PO Last administered on 11/20/18 13:52; Admin Dose 50 MG; Start 11/16/18 at 22:00 Metoprolol Tartrate (Lopressor) 75 mg BID PO Last administered on 11/20/18 09:30; Admin Dose 75 MG; Start 11/16/18 at 21:00 Tiotropium [place] (Spiriva) 1 inh DAILY INH Last administered on 11/20/18 09:28; Admin Dose 1 INH; Start 11/17/18 at 09:00 Diagnostic Test (Pha) (Accu-Chek) 1 ea 02 XX ; Start 11/17/18 at 02:00 Insulin Aspart (Novolog Insulin Pen) NOVOLOG *MILD* ALGORITHM WITH MEALS BEDTIME SC Last administered on 11/20/18 17:08; Admin Dose 1 UNIT; Start 11/16/18 at 21:00 Furosemide (Lasix) 40 mg BID DIURETICS IV Last administered on 11/20/18 17:10; Admin Dose 40 MG; Start 11/17/18 at 06:00 Pantoprazole (Protonix Tab) 40 mg DAILY@06 PO Last administered on 11/20/18 05:47; Admin Dose 40 MG; Start 11/17/18 at 06:00 Psyllium Hydrophilic Mucilloid (Metamucil) 1 pkt DAILY PO Last administered on 11/20/18 09:28; Admin Dose 1 PKT; Start 11/17/18 at 09:00 Fluticasone/ Vilanterol (Breo Ellipta 100-25 Mcg Inh) 1 inh DAILY INH Last administered on 11/20/18 09:30; Admin Dose 1 INH; Start 11/17/18 at 12:00 Ceftriaxone Sodium 50 ml @ 100 mls/hr Q24H IVPB Last administered on 11/19/18 20:52; Admin Dose 100 MLS/HR; Start 11/17/18 at 21:00 Albuterol/ Ipratropium (Duoneb) 3 ml Q4H RESP THERAPY HHN Last administered on 11/20/18 17:17; Admin Dose 3 ML; Start 11/18/18 at 13:00 Linezolid (Zyvox) 600 mg BID PO Last administered on 11/20/18 09:28; Admin Dose 600 MG; Start 11/18/18 at 21:00 Insulin Aspart (Novolog Insulin Pen) 6 unit WITH MEALS SC Last administered on 11/20/18 17:08; Admin Dose 6 UNIT; Start 11/20/18 at 17:55 Insulin Glargine (Lantus) 18 units DAILY@2000 SC ; Start 11/20/18 at 20:00 ROCHELLE STERLING NP Nov 20, 2018 19:28
[2018-11-20] MEDS ORDERED: INSULIN GLARGINE [LANTus] (100 UNITS/ML) SYG SC SCH (20:00)
[2018-11-20] MEDS: CEFEPIME 1GM/50 ML (PMX) 50 ML IVPB SCH (21:34)
[2018-11-21] VITALS (10 sets, daily range): BP systolic 109–125; BP diastolic 51–66; PULSE 42–78; RESP 20–24
[2018-11-21] MEDS: ALBUTEROL/IPRATROPIUM (NEB) 3 ML AMP HHN SCH ×6 (01:09→20:58)
[2018-11-21] MEDS: ACCU-CHEK XX SCH (02:00)
[2018-11-21] MEDS: FUROSEMIDE 40 MG INJ IV SCH ×2 (05:33→17:41)
[2018-11-21] MEDS: PANTOPRAZOLE (EC) 40 MG TAB PO SCH (06:31)
[2018-11-21] MEDS: ASPIRIN 81 MG TAB PO SCH (08:05)
[2018-11-21] MEDS: FLUCONAZOLE 100 MG TAB PO SCH (08:05)
[2018-11-21] MEDS: APIXABAN 5 MG TABLET PO SCH ×2 (08:05→21:34)
[2018-11-21] MEDS: ZYVOX 600 MG TAB PO SCH ×2 (08:05→21:34)
[2018-11-21] MEDS: DILTIAZEM (CD) 120 MG CAP PO SCH ×2 (08:07→21:00)
[2018-11-21] MEDS: METOPROLOL 25 MG TAB PO SCH (08:07)
[2018-11-21] MEDS: PSYLLIUM 28% PACKET PO SCH (08:07)
[2018-11-21] MEDS: FLUTICASONE/VILANTEROL 100-25 INH SCH (08:08)
[2018-11-21] MEDS: CLOTRIMAZOLE 1% 30 GM CR TOP SCH ×2 (08:08→21:34)
[2018-11-21] MEDS: INSULIN ASPART [NOVOLOG] 3 ML PEN SC SCH ×6 (08:15→21:53)
--- NOTE | 2018-11-21 08:41 | PN ---
Date/Time of Note Date/Time of Note DATE: 11/21/18 TIME: 08:38 Assessment/Plan VTE Prophylaxis Risk score (from Ns)>0 risk: 7 SCD applied (from [facility] [place]): No SCD contraindicated: other Pharmacological prophylaxis: other Lines/Catheters IV Catheter Type (from [facility]): Mid Line Assessment/Plan Hospital Course SUBJECTIVE: The patient continues to have respiratory distress, shortness of breath. The patient is receiving nebulizers. Continues to be on IV Solu- Medrol. No other events noted. The patient's urinary output is stable but he is still in positive fluid balance despite aggressive diuresis no fever, chills, new rash, hematuria, melena, vomiting, chest pain, tachypnea, diaphoresis OBJECTIVE: HEENT: Head is normocephalic. NECK: Supple. HEART: Regular rate. LUNGS: Show diminished breath sounds at the base. ABDOMEN: Soft, nontender to palpation without rebound or guarding. EXTREMITIES: Negative for clubbing, cyanosis. Positive edema. DERMATOLOGIC: No rashes. MUSCULOSKELETAL: No joint effusion. NEUROLOGIC: No change in exam. MEDICATIONS: The patient's medications have been reviewed. ASSESSMENT AND PLAN: 1. Nonoliguric acute kidney injury with previous baseline creatinine of 1.5 mg/dL. Etiology of acute kidney injury is multifactorial, likely hemodynamics, cardiorenal syndrome. The patient's renal function has declined in the last 24 to 48 hours. He is still in positive fluid balance despite diuresis. will continue lasix at current dose for pulmonary congestion. If the patient is unable to be adequately diuresed fand if renal function should further decline, would consider renal replacement therapy. 2. Mild hyperkalemia secondary to acute kidney injury and hyperglycemia. Continue low-potassium diet and monitor potassium levels closely. 3. Volume overload secondary to acute systolic, diastolic heart failure. The patient's repeat chest x-ray shows evidence of pulmonary congestion. Will reintroduce diuretic therapy, monitor renal function closely. 4. Anemia. Monitor hemoglobin and hematocrit levels. 5. Mineral bone disorder, monitor calcium and phosphorus levels. 6. Acute respiratory failure, etiology secondary to chronic heart failure, chronic obstructive pulmonary disease exacerbation. Continue nebulized steroids. Will reintroduce diuretics and monitor closely. 7. Lower extremity cellulitis with lymphedema. Continue antibiotic therapy. 8. Paroxysmal atrial fibrillation. Continue medical management. 9. Diabetes. Continue current insulin regimen. 10. Obesity. Continue dietary modification. 11. Severe aortic stenosis. Continue to monitor. May consider repeat 2D echo to evaluate valve area. Result Diagram: 11/21/18 0549 11/21/18 0549 Results 24hrs Laboratory Tests Test 11/20/18 10:03 11/20/18 12:14 11/20/18 16:58 11/20/18 21:32 White Blood Count 11.3 #H Red Blood Count 4.41 Hemoglobin 9.9 L Hematocrit 33.3 L Mean Corpuscular Volume 75.5 L Mean Corpuscular 22.4 L Hemoglobin Mean Corpuscular 29.7 L Hemoglobin Concent Red Cell Distribution 19.7 H Width Platelet Count 274 Mean Platelet Volume 10.7 H Immature Granulocytes % 0.700 H Neutrophils % 93.6 H Lymphocytes % 2.7 L Monocytes % 2.9 Eosinophils % 0.0 Basophils % 0.1 Nucleated Red Blood 0.2 H Cells % Immature Granulocytes # 0.080 H Neutrophils # 10.6 H Lymphocytes # 0.3 L Monocytes # 0.3 Eosinophils # 0.0 Basophils # 0.0 Nucleated Red Blood 0.0 Cells # Sodium Level 138 Potassium Level 5.6 H Chloride Level 103 Carbon Dioxide Level 20 L Anion Gap 15 H Blood Urea Nitrogen 53 H Creatinine 2.95 H Est Glomerular Filtrat Rate mL/min Glucose Level 279 H Calcium Level 9.3 Phosphorus Level 5.9 H Magnesium Level 2.1 Bedside Glucose 355 H 180 166 Test 11/21/18 05:49 11/21/18 07:55 White Blood Count 10.2 Red Blood Count 4.48 Hemoglobin 10.1 L Hematocrit 34.0 L Mean Corpuscular Volume 75.9 L Mean Corpuscular 22.5 L Hemoglobin Mean Corpuscular 29.7 L Hemoglobin Concent Red Cell Distribution 19.7 H Width Platelet Count 265 Mean Platelet Volume 11.0 H Immature Granulocytes % 0.700 H Neutrophils % 93.5 H Lymphocytes % 2.3 L Monocytes % 3.4 Eosinophils % 0.0 Basophils % 0.1 Nucleated Red Blood 0.6 H Cells % Immature Granulocytes # 0.070 H Neutrophils # 9.5 H Lymphocytes # 0.2 L Monocytes # 0.4 Eosinophils # 0.0 Basophils # 0.0 Nucleated Red Blood 0.1 H Cells # Sodium Level 138 Potassium Level 5.9 H Chloride Level 104 Carbon Dioxide Level 19 L Anion Gap 15 H Blood Urea Nitrogen 62 H Creatinine 3.40 H Est Glomerular Filtrat Rate mL/min Glucose Level 154 # Calcium Level 8.9 Phosphorus Level 6.1 H Magnesium Level 2.2 Bedside Glucose 159 Exam/Review of Systems Exam Vitals Vital Signs Date Temp Pulse Resp B/P (MAP) Pulse Ox O2 O2 Flow FiO2 Time Delivery Rate 11/21/18 97.3 66 24 125/66 99 Nasal 07:54 (85) Cannula 11/21/18 2.0 01:09 11/20/18 32 16:16 Intake and Output 11/20/18 11/20/18 11/21/18 1515:00 23:00 07:00 IntakeIntake Total 720 ml 350 ml OutputOutput Total 130 ml 160 ml BalanceBalance 590 ml 190 ml Results Results 24hrs Laboratory Tests Test 11/20/18 10:03 11/20/18 12:14 11/20/18 16:58 11/20/18 21:32 White Blood Count 11.3 #H Red Blood Count 4.41 Hemoglobin 9.9 L Hematocrit 33.3 L Mean Corpuscular Volume 75.5 L Mean Corpuscular 22.4 L Hemoglobin Mean Corpuscular 29.7 L Hemoglobin Concent Red Cell Distribution 19.7 H Width Platelet Count 274 Mean Platelet Volume 10.7 H Immature Granulocytes % 0.700 H Neutrophils % 93.6 H Lymphocytes % 2.7 L Monocytes % 2.9 Eosinophils % 0.0 Basophils % 0.1 Nucleated Red Blood 0.2 H Cells % Immature Granulocytes # 0.080 H Neutrophils # 10.6 H Lymphocytes # 0.3 L Monocytes # 0.3 Eosinophils # 0.0 Basophils # 0.0 Nucleated Red Blood 0.0 Cells # Sodium Level 138 Potassium Level 5.6 H Chloride Level 103 Carbon Dioxide Level 20 L Anion Gap 15 H Blood Urea Nitrogen 53 H Creatinine 2.95 H Est Glomerular Filtrat Rate mL/min Glucose Level 279 H Calcium Level 9.3 Phosphorus Level 5.9 H Magnesium Level 2.1 Bedside Glucose 355 H 180 166 Test 11/21/18 05:49 11/21/18 07:55 White Blood Count 10.2 Red Blood Count 4.48 Hemoglobin 10.1 L Hematocrit 34.0 L Mean Corpuscular Volume 75.9 L Mean Corpuscular 22.5 L Hemoglobin Mean Corpuscular 29.7 L Hemoglobin Concent Red Cell Distribution 19.7 H Width Platelet Count 265 Mean Platelet Volume 11.0 H Immature Granulocytes % 0.700 H Neutrophils % 93.5 H Lymphocytes % 2.3 L Monocytes % 3.4 Eosinophils % 0.0 Basophils % 0.1 Nucleated Red Blood 0.6 H Cells % Immature Granulocytes # 0.070 H Neutrophils # 9.5 H Lymphocytes # 0.2 L Monocytes # 0.4 Eosinophils # 0.0 Basophils # 0.0 Nucleated Red Blood 0.1 H Cells # Sodium Level 138 Potassium Level 5.9 H Chloride Level 104 Carbon Dioxide Level 19 L Anion Gap 15 H Blood Urea Nitrogen 62 H Creatinine 3.40 H Est Glomerular Filtrat Rate mL/min Glucose Level 154 # Calcium Level 8.9 Phosphorus Level 6.1 H Magnesium Level 2.2 Bedside Glucose 159 Medications Medication Current Medications IV Flush (NS 3 ml) 3 ml PER PROTOCOL IV ; Start 11/16/18 at 19:30 Ondansetron HCl (Zofran Inj) 4 mg Q6H PRN IV NAUSEA/VOMITING; Start 11/16/18 at 19:30 Acetaminophen (Tylenol Tab) 650 mg Q6H PRN PO .PAIN 1-3 OR TEMP; Start 11/16/18 at 19:30 Acetaminophen/ Hydrocodone Bitart ([place] (5/325)) 1 tab Q6H PRN PO .MOD PAIN 4- 6 Last administered on 11/20/18at 17:10; Admin Dose 1 TAB; Start 11/16/18 at 19:30 Morphine Sulfate (morphine) 2 mg Q4H PRN IV .SEVERE PAIN 7-10 Last administered on 11/18/18at 00:13; Admin Dose 2 MG; Start 11/16/18 at 19:30 Docusate Sodium (Colace) 100 mg Q12H PRN PO .CONSTIPATION; Start 11/16/18 at 19:30 Zolpidem Tartrate (Ambien) 5 mg QHS PRN PO .INSOMNIA; Start 11/16/18 at 19:30 Apixaban (Eliquis) 2.5 mg BID PO Last administered on 11/21/18 08:05; Admin Dose 2.5 MG; Start 11/16/18 at 21:00 Aspirin (Aspirin) 81 mg DAILY PO Last administered on 11/21/18 08:05; Admin Dose 81 MG; Start 11/17/18 at 09:00 Clotrimazole (Lotrimin Cr) 1 applic BID TOP Last administered on 11/21/18 08:08; Admin Dose 1 APPLIC; Start 11/16/18 at 21:00 Digoxin (Digoxin) 0.125 mg DAILY@13 PO Last administered on 11/20/18 13:52; Admin Dose 0.125 MG; Start 11/17/18 at 13:00 Diltiazem HCl (Cardizem Cd) 120 mg BID PO Last administered on 11/21/18 08:07; Admin Dose 120 MG; Start 11/16/18 at 21:00 Hydralazine HCl (Apresoline) 50 mg Q8 PO Last administered on 11/20/18 13:52; Admin Dose 50 MG; Start 11/16/18 at 22:00 Metoprolol Tartrate (Lopressor) 75 mg BID PO Last administered on 11/21/18 08:07; Admin Dose 75 MG; Start 11/16/18 at 21:00 Tiotropium [place] (Spiriva) 1 inh DAILY INH Last administered on 11/20/18 09:28; Admin Dose 1 INH; Start 11/17/18 at 09:00 Diagnostic Test (Pha) (Accu-Chek) 1 ea 02 XX ; Start 11/17/18 at 02:00 Insulin Aspart (Novolog Insulin Pen) NOVOLOG *MILD* ALGORITHM WITH MEALS BEDTIME SC Last administered on 11/21/18 08:15; Admin Dose 1 UNIT; Start 11/16/18 at 21:00 Furosemide (Lasix) 40 mg BID DIURETICS IV Last administered on 11/21/18 05:33; Admin Dose 40 MG; Start 11/17/18 at 06:00 Pantoprazole (Protonix Tab) 40 mg DAILY@06 PO Last administered on 11/21/18 06:31; Admin Dose 40 MG; Start 11/17/18 at 06:00 Psyllium Hydrophilic Mucilloid (Metamucil) 1 pkt DAILY PO Last administered on 11/21/18 08:07; Admin Dose 1 PKT; Start 11/17/18 at 09:00 Fluticasone/ Vilanterol (Breo Ellipta 100-25 Mcg Inh) 1 inh DAILY INH Last administered on 11/21/18 08:08; Admin Dose 1 INH; Start 11/17/18 at 12:00 Albuterol/ Ipratropium (Duoneb) 3 ml Q4H RESP THERAPY HHN Last administered on 11/21/18 01:09; Admin Dose 3 ML; Start 11/18/18 at 13:00 Linezolid (Zyvox) 600 mg BID PO Last administered on 11/21/18 08:05; Admin Dose 600 MG; Start 11/18/18 at 21:00 Insulin Aspart (Novolog Insulin Pen) 6 unit WITH MEALS SC Last administered on 11/21/18 08:15; Admin Dose 6 UNIT; Start 11/20/18 at 17:55 Insulin Glargine (Lantus) 18 units DAILY@2000 SC Last administered on 11/20/18 21:44; Admin Dose 18 UNITS; Start 11/20/18 at 20:00 Cefepime HCl 50 ml @ 100 mls/hr Q24H IVPB Last administered on 11/20/18 21:34; Admin Dose 100 MLS/HR; Start 11/20/18 at 21:00 Fluconazole (Diflucan) 100 mg DAILY PO Last administered on 11/21/18 08:05; Admin Dose 100 MG; Start 11/21/18 at 09:00 COURTNEY TAY DO Nov 21, 2018 08:41
--- NOTE | 2018-11-21 09:54 | CONS ---
Assessment/Plan Assessment/Plan Hospital Course (Demo Recall) ID PROGRESS NOTE CURRENT ABX: DAY # Zyvox, Cefepime, Diflucan 24H INTERVAL SUMMARY * Awake, alert, responsive, course BS on supplemental O2 via NC -- subjective dyspnea off O2 * No fevers, VSS, chart reviewed DIAGNOSTIC IMAGING * Chest x-ray => CHF bilateral pleural effusions left greater than right and diffuse interstitial edema MICRO/OTHER * Blood culture + Staph 1 out of 2 sets, * urine culture + yeast. URINE CULTURE Preliminary Organism 1 YEAST COLONY COUNT 10,000 - 20,000 CFU/ml * Left lower extremity woundWOUND CULTURE Final Organism 1 ENTEROBACTER CLOACAE COMPLEX QUANTITY 2+ Organism 2 KLEBSIELLA OXYTOCA QUANTITY 1+ Organism 3 COAGULASE NEGATIVE STAPH QUANTITY ISOLATED FROM BROTH ONLY Organism 4 ALPHA HEMOLYTIC STREP SPP QUANTITY ISOLATED FROM BROTH ONLY . VIRIDANS GROUP EC COMPLEX KLEB OXYTO COAG NEG M.I.C. RX M.I.C. RX M.I.C. RX --------- --- --------- --- --------- --- CEFAZOLIN R S CEFOTAXIME S S CIPROFLOXACIN <=0.25 S <=0.25 S <=0.5 S CLINDAMYCIN 1 I DOXYCYCLINE S ERYTHROMYCIN <=0.25 S GENTAMICIN <=1 S <=1 S LEVOFLOXACIN <=0.12 S <=0.12 S 0.5 S OXACILLIN 2 S PENICILLIN PENICILLIN-G R RIFAMPIN <=0.5 S VANCOMYCIN <=0.5 S TOBRAMYCIN <=1 S <=1 S TRIMETHOPRIM/SULFAMETHOXAZOLE <=20 S <=20 S <=10 S ALPHA HEMO M.I.C. RX --------- --- CEFAZOLIN CEFOTAXIME 0.064 S CIPROFLOXACIN CLINDAMYCIN DOXYCYCLINE ERYTHROMYCIN GENTAMICIN LEVOFLOXACIN OXACILLIN PENICILLIN 0.032 S PENICILLIN-G RIFAMPIN VANCOMYCIN 1 S TOBRAMYCIN TRIMETHOPRIM/SULFAMETHOXAZOLE ALPHA HEMO Zone Size RX --------- --- * CLINDAMYCIN S * ERYTHROMYCIN S * * PHYSICAL EXAMINATION: GENERAL: VSS, obese, mild dyspnea on O2 via NC HEENT: AT, NC, anicteric NECK: Supple, CHEST: Equal chest rise bilaterally, course BS HEART: Pulse RRR ABDOMEN: Soft / NT EXTREMITIES: Warm, Bilateral lower extremities edema erythema and multiple wounds, left more than right SKIN: No rash, no diaphoresis ID ASSESSMENT 83 yo F admit with: 1. Sepsis, present on admission 2. Bacteremia cw contaminant 3. 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 Urinary tract infection 5. Acute hypoxemic respiratory failure secondary to pulmonary edema and CHF exacerbation, poss PNA 6. Morbid obesity 7. Atrial fibrillation 8. Diabetes 9. Acute kidney failure (-)MRSA Nares ABX ALLERGIES: KNDA INVASIVES: PIV, FC CURRENT ABX: DAY #Zyvox, Cefepime, Diflucan ID RECOMMENDATIONS/PLAN: 1. Continue current ABX 2. [employer] Colleague to f/u tomorrow . Consultation Date/Type/Reason Admit Date/Time Nov 16, 2018 at 17:17 Initial Consult Date Date/Time of Note DATE: 11/21/18 TIME: 09:54 Exam/Review of Systems Exam Vitals Vital Signs Date Temp Pulse Resp B/P (MAP) Pulse Ox O2 O2 Flow FiO2 Time Delivery Rate 11/21/18 68 08:00 11/21/18 97.3 24 125/66 99 Nasal 07:54 (85) Cannula 11/21/18 3.0 07:30 11/20/18 32 16:16 Intake and Output 11/20/18 11/20/18 11/21/18 1414:59 22:59 06:59 IntakeIntake Total 720 ml 350 ml OutputOutput Total 130 ml 160 ml BalanceBalance 590 ml 190 ml Results Result Diagram: 11/21/18 0549 11/21/18 0549 Results 24hrs Laboratory Tests Test 11/20/18 10:03 11/20/18 12:14 11/20/18 16:58 11/20/18 21:32 White Blood Count 11.3 #H Red Blood Count 4.41 Hemoglobin 9.9 L Hematocrit 33.3 L Mean Corpuscular Volume 75.5 L Mean Corpuscular 22.4 L Hemoglobin Mean Corpuscular 29.7 L Hemoglobin Concent Red Cell Distribution 19.7 H Width Platelet Count 274 Mean Platelet Volume 10.7 H Immature Granulocytes % 0.700 H Neutrophils % 93.6 H Lymphocytes % 2.7 L Monocytes % 2.9 Eosinophils % 0.0 Basophils % 0.1 Nucleated Red Blood 0.2 H Cells % Immature Granulocytes # 0.080 H Neutrophils # 10.6 H Lymphocytes # 0.3 L Monocytes # 0.3 Eosinophils # 0.0 Basophils # 0.0 Nucleated Red Blood 0.0 Cells # Sodium Level 138 Potassium Level 5.6 H Chloride Level 103 Carbon Dioxide Level 20 L Anion Gap 15 H Blood Urea Nitrogen 53 H Creatinine 2.95 H Est Glomerular Filtrat Rate mL/min Glucose Level 279 H Calcium Level 9.3 Phosphorus Level 5.9 H Magnesium Level 2.1 Bedside Glucose 355 H 180 166 Test 11/21/18 05:49 11/21/18 07:55 White Blood Count 10.2 Red Blood Count 4.48 Hemoglobin 10.1 L Hematocrit 34.0 L Mean Corpuscular Volume 75.9 L Mean Corpuscular 22.5 L Hemoglobin Mean Corpuscular 29.7 L Hemoglobin Concent Red Cell Distribution 19.7 H Width Platelet Count 265 Mean Platelet Volume 11.0 H Immature Granulocytes % 0.700 H Neutrophils % 93.5 H Lymphocytes % 2.3 L Monocytes % 3.4 Eosinophils % 0.0 Basophils % 0.1 Nucleated Red Blood 0.6 H Cells % Immature Granulocytes # 0.070 H Neutrophils # 9.5 H Lymphocytes # 0.2 L Monocytes # 0.4 Eosinophils # 0.0 Basophils # 0.0 Nucleated Red Blood 0.1 H Cells # Sodium Level 138 Potassium Level 5.9 H Chloride Level 104 Carbon Dioxide Level 19 L Anion Gap 15 H Blood Urea Nitrogen 62 H Creatinine 3.40 H Est Glomerular Filtrat Rate mL/min Glucose Level 154 # Calcium Level 8.9 Phosphorus Level 6.1 H Magnesium Level 2.2 Bedside Glucose 159 Medications Medication Current Medications IV Flush (NS 3 ml) 3 ml PER PROTOCOL IV ; Start 11/16/18 at 19:30 Ondansetron HCl (Zofran Inj) 4 mg Q6H PRN IV NAUSEA/VOMITING; Start 11/16/18 at 19:30 Acetaminophen (Tylenol Tab) 650 mg Q6H PRN PO .PAIN 1-3 OR TEMP; Start 11/16/18 at 19:30 Acetaminophen/ Hydrocodone Bitart ([place] (5/325)) 1 tab Q6H PRN PO .MOD PAIN 4- 6 Last administered on 11/20/18at 17:10; Admin Dose 1 TAB; Start 11/16/18 at 19:30 Morphine Sulfate (morphine) 2 mg Q4H PRN IV .SEVERE PAIN 7-10 Last administered on 11/18/18 00:13; Admin Dose 2 MG; Start 11/16/18 at 19:30 Docusate Sodium (Colace) 100 mg Q12H PRN PO .CONSTIPATION; Start 11/16/18 at 19:30 Zolpidem Tartrate (Ambien) 5 mg QHS PRN PO .INSOMNIA; Start 11/16/18 at 19:30 Apixaban (Eliquis) 2.5 mg BID PO Last administered on 11/21/18 08:05; Admin Dose 2.5 MG; Start 11/16/18 at 21:00 Aspirin (Aspirin) 81 mg DAILY PO Last administered on 11/21/18 08:05; Admin Dose 81 MG; Start 11/17/18 at 09:00 Clotrimazole (Lotrimin Cr) 1 applic BID TOP Last administered on 11/21/18 08:08; Admin Dose 1 APPLIC; Start 11/16/18 at 21:00 Digoxin (Digoxin) 0.125 mg DAILY@13 PO Last administered on 11/20/18 13:52; Admin Dose 0.125 MG; Start 11/17/18 at 13:00 Diltiazem HCl (Cardizem Cd) 120 mg BID PO Last administered on 11/21/18 08:07; Admin Dose 120 MG; Start 11/16/18 at 21:00 Hydralazine HCl (Apresoline) 50 mg Q8 PO Last administered on 11/20/18 13:52; Admin Dose 50 MG; Start 11/16/18 at 22:00 Metoprolol Tartrate (Lopressor) 75 mg BID PO Last administered on 11/21/18 08:07; Admin Dose 75 MG; Start 11/16/18 at 21:00 Tiotropium [place] (Spiriva) 1 inh DAILY INH Last administered on 11/20/18 09:28; Admin Dose 1 INH; Start 11/17/18 at 09:00 Diagnostic Test (Pha) (Accu-Chek) 1 ea 02 XX ; Start 11/17/18 at 02:00 Insulin Aspart (Novolog Insulin Pen) NOVOLOG *MILD* ALGORITHM WITH MEALS BEDTIME SC Last administered on 11/21/18 08:15; Admin Dose 1 UNIT; Start 11/16/18 at 21:00 Furosemide (Lasix) 40 mg BID DIURETICS IV Last administered on 11/21/18 05:33; Admin Dose 40 MG; Start 11/17/18 at 06:00 Pantoprazole (Protonix Tab) 40 mg DAILY@06 PO Last administered on 11/21/18 06:31; Admin Dose 40 MG; Start 11/17/18 at 06:00 Psyllium Hydrophilic Mucilloid (Metamucil) 1 pkt DAILY PO Last administered on 11/21/18 08:07; Admin Dose 1 PKT; Start 11/17/18 at 09:00 Fluticasone/ Vilanterol (Breo Ellipta 100-25 Mcg Inh) 1 inh DAILY INH Last administered on 11/21/18 08:08; Admin Dose 1 INH; Start 11/17/18 at 12:00 Albuterol/ Ipratropium (Duoneb) 3 ml Q4H RESP THERAPY HHN Last administered on 11/21/18 01:09; Admin Dose 3 ML; Start 11/18/18 at 13:00 Linezolid (Zyvox) 600 mg BID PO Last administered on 11/21/18 08:05; Admin Dose 600 MG; Start 11/18/18 at 21:00 Insulin Aspart (Novolog Insulin Pen) 6 unit WITH MEALS SC Last administered on 11/21/18 08:15; Admin Dose 6 UNIT; Start 11/20/18 at 17:55 Insulin Glargine (Lantus) 18 units DAILY@2000 SC Last administered on 11/20/18 21:44; Admin Dose 18 UNITS; Start 11/20/18 at 20:00 Cefepime HCl 50 ml @ 100 mls/hr Q24H IVPB Last administered on 11/20/18 21:34; Admin Dose 100 MLS/HR; Start 11/20/18 at 21:00 Fluconazole (Diflucan) 100 mg DAILY PO Last administered on 11/21/18 08:05; Admin Dose 100 MG; Start 11/21/18 at 09:00 DULCE MCKINNEY NP Nov 21, 2018 09:54
[2018-11-21] MEDS: TIOTROPIUM 18 MCG CAPSULE INHA DEV INH SCH (11:36)
--- NOTE | 2018-11-21 12:29 | PN ---
Date/Time of Note Date/Time of Note DATE: 11/21/18 TIME: 12:26 Assessment/Plan VTE Prophylaxis Risk score (from Nsg)>0 risk: 8 Pharmacological prophylaxis: apixaban Lines/Catheters IV Catheter Type (from Nrsg): Mid Line Assessment/Plan Hospital Course 1. Lower extremity cellulitis secondary to lymphedema-improved Zyvox and Rocephin IV Cultures noted ID consultation appreciated Lasix IV 2. Acute respiratory distress secondary to acute on chronic diastolic and systolic heart failure exacerbation on COPD BNP is elevated repeat chest x-ray does show CHF Continue scheduled DuoNeb, Spiriva and Breo Patient did receive a short course of steroids, patient continues to be wheezing and have ordered steroids once again Pulmonology consultation appreciated Continue Lasix Continue cardiac meds 3. Paroxysmal A. fib Continue Eliquis 4. History of PE Continue Eliquis 5. Hypertension Continue home meds 6. Acute kidney injury on CKD likely secondary to hemodynamics and diuresis Nephrology consultation appreciated, patient will likely require temporary hemodialysis due to volume overload and hyperkalemia Vancomycin has been discontinued 7. Diabetes Sugars are currently stable but have started steroids once again, increase basal and mealtime insulin Renal function has declined and hence will increase insulin gradually Monitor 8. Obesity Lifestyle changes 9. Aortic stenosis 10. COPD Continue home Breo as well as DuoNeb and Spiriva Prophylaxis: Eliquis DC planning: Not stable for DC, patient is not interested in eventual skilled nursing placement Result Diagram: 11/21/18 0549 11/21/18 0549 Results 24hrs Laboratory Tests Test 11/20/18 16:58 11/20/18 21:32 11/21/18 05:49 11/21/18 07:55 Bedside Glucose 180 166 159 White Blood Count 10.2 Red Blood Count 4.48 Hemoglobin 10.1 L Hematocrit 34.0 L Mean Corpuscular Volume 75.9 L Mean Corpuscular 22.5 L Hemoglobin Mean Corpuscular 29.7 L Hemoglobin Concent Red Cell Distribution 19.7 H Width Platelet Count 265 Mean Platelet Volume 11.0 H Immature Granulocytes % 0.700 H Neutrophils % 93.5 H Lymphocytes % 2.3 L Monocytes % 3.4 Eosinophils % 0.0 Basophils % 0.1 Nucleated Red Blood 0.6 H Cells % Immature Granulocytes # 0.070 H Neutrophils # 9.5 H Lymphocytes # 0.2 L Monocytes # 0.4 Eosinophils # 0.0 Basophils # 0.0 Nucleated Red Blood 0.1 H Cells # Sodium Level 138 Potassium Level 5.9 H Chloride Level 104 Carbon Dioxide Level 19 L Anion Gap 15 H Blood Urea Nitrogen 62 H Creatinine 3.40 H Est Glomerular Filtrat Rate mL/min Glucose Level 154 # Calcium Level 8.9 Phosphorus Level 6.1 H Magnesium Level 2.2 Test 11/21/18 11:38 Bedside Glucose 151 Subjective 24 Hr Interval Summary Respiratory: shortness of breath Exam/Review of Systems Exam Vitals Vital Signs Date Temp Pulse Resp B/P (MAP) Pulse Ox O2 O2 Flow FiO2 Time Delivery Rate 11/21/18 97.4 63 22 109/53 98 Nasal 11:21 (71) Cannula 11/21/18 3.0 07:30 11/20/18 32 16:16 Intake and Output 11/20/18 11/20/18 11/21/18 1414:59 22:59 06:59 IntakeIntake Total 720 ml 350 ml OutputOutput Total 130 ml 160 ml BalanceBalance 590 ml 190 ml Constitutional: alert Respiratory: wheezing Cardiovascular: regular rate and rhythm Gastrointestinal: soft; No distended Musculoskeletal: nl extremities to inspection Results Results 24hrs Laboratory Tests Test 11/20/18 16:58 11/20/18 21:32 11/21/18 05:49 11/21/18 07:55 Bedside Glucose 180 166 159 White Blood Count 10.2 Red Blood Count 4.48 Hemoglobin 10.1 L Hematocrit 34.0 L Mean Corpuscular Volume 75.9 L Mean Corpuscular 22.5 L Hemoglobin Mean Corpuscular 29.7 L Hemoglobin Concent Red Cell Distribution 19.7 H Width Platelet Count 265 Mean Platelet Volume 11.0 H Immature Granulocytes % 0.700 H Neutrophils % 93.5 H Lymphocytes % 2.3 L Monocytes % 3.4 Eosinophils % 0.0 Basophils % 0.1 Nucleated Red Blood 0.6 H Cells % Immature Granulocytes # 0.070 H Neutrophils # 9.5 H Lymphocytes # 0.2 L Monocytes # 0.4 Eosinophils # 0.0 Basophils # 0.0 Nucleated Red Blood 0.1 H Cells # Sodium Level 138 Potassium Level 5.9 H Chloride Level 104 Carbon Dioxide Level 19 L Anion Gap 15 H Blood Urea Nitrogen 62 H Creatinine 3.40 H Est Glomerular Filtrat Rate mL/min Glucose Level 154 # Calcium Level 8.9 Phosphorus Level 6.1 H Magnesium Level 2.2 Test 11/21/18 11:38 Bedside Glucose 151 Medications Medication Current Medications IV Flush (NS 3 ml) 3 ml PER PROTOCOL IV ; Start 11/16/18 at 19:30 Ondansetron HCl (Zofran Inj) 4 mg Q6H PRN IV NAUSEA/VOMITING; Start 11/16/18 at 19:30 Acetaminophen (Tylenol Tab) 650 mg Q6H PRN PO .PAIN 1-3 OR TEMP; Start 11/16/18 at 19:30 Acetaminophen/ Hydrocodone Bitart ([place] (5/325)) 1 tab Q6H PRN PO .MOD PAIN 4- 6 Last administered on 11/20/18 17:10; Admin Dose 1 TAB; Start 11/16/18 at 19:30 Morphine Sulfate (morphine) 2 mg Q4H PRN IV .SEVERE PAIN 7-10 Last administered on 11/18/18 00:13; Admin Dose 2 MG; Start 11/16/18 at 19:30 Docusate Sodium (Colace) 100 mg Q12H PRN PO .CONSTIPATION; Start 11/16/18 at 19:30 Zolpidem Tartrate (Ambien) 5 mg QHS PRN PO .INSOMNIA; Start 11/16/18 at 19:30 Apixaban (Eliquis) 2.5 mg BID PO Last administered on 11/21/18 08:05; Admin Dose 2.5 MG; Start 11/16/18 at 21:00 Aspirin (Aspirin) 81 mg DAILY PO Last administered on 11/21/18 08:05; Admin Dose 81 MG; Start 11/17/18 at 09:00 Clotrimazole (Lotrimin Cr) 1 applic BID TOP Last administered on 11/21/18 08:08; Admin Dose 1 APPLIC; Start 11/16/18 at 21:00 Digoxin (Digoxin) 0.125 mg DAILY@13 PO Last administered on 11/20/18 13:52; Admin Dose 0.125 MG; Start 11/17/18 at 13:00 Diltiazem HCl (Cardizem Cd) 120 mg BID PO Last administered on 11/21/18 08:07; Admin Dose 120 MG; Start 11/16/18 at 21:00 Hydralazine HCl (Apresoline) 50 mg Q8 PO Last administered on 11/20/18 13:52; Admin Dose 50 MG; Start 11/16/18 at 22:00 Metoprolol Tartrate (Lopressor) 75 mg BID PO Last administered on 11/21/18 08:07; Admin Dose 75 MG; Start 11/16/18 at 21:00 Tiotropium [place] (Spiriva) 1 inh DAILY INH Last administered on 11/21/18 11:36; Admin Dose 1 INH; Start 11/17/18 at 09:00 Diagnostic Test (Pha) (Accu-Chek) 1 ea 02 XX ; Start 11/17/18 at 02:00 Insulin Aspart (Novolog Insulin Pen) NOVOLOG *MILD* ALGORITHM WITH MEALS BEDTIME SC Last administered on 11/21/18 08:15; Admin Dose 1 UNIT; Start at 21:00 Furosemide (Lasix) 40 mg BID DIURETICS IV Last administered on 11/21/18 05:33; Admin Dose 40 MG; Start 11/17/18 at 06:00 Pantoprazole (Protonix Tab) 40 mg DAILY@06 PO Last administered on 11/21/18 06:31; Admin Dose 40 MG; Start 11/17/18 at 06:00 Psyllium Hydrophilic Mucilloid (Metamucil) 1 pkt DAILY PO Last administered on 11/21/18 08:07; Admin Dose 1 PKT; Start 11/17/18 at 09:00 Fluticasone/ Vilanterol (Breo Ellipta 100-25 Mcg Inh) 1 inh DAILY INH Last administered on 11/21/18 08:08; Admin Dose 1 INH; Start 11/17/18 at 12:00 Albuterol/ Ipratropium (Duoneb) 3 ml Q4H RESP THERAPY HHN Last administered on 11/21/18 01:09; Admin Dose 3 ML; Start 11/18/18 at 13:00 Linezolid (Zyvox) 600 mg BID PO Last administered on 11/21/18 08:05; Admin Dose 600 MG; Start 11/18/18 at 21:00 Insulin Aspart (Novolog Insulin Pen) 6 unit WITH MEALS SC Last administered on 11/21/18 08:15; Admin Dose 6 UNIT; Start 3/1/19 at 17:55 Insulin Glargine (Lantus) 18 units DAILY@2000 SC Last administered on 11/20/18at 21:44; Admin Dose 18 UNITS; Start 11/20/18 at 20:00 Cefepime HCl 50 ml @ 100 mls/hr Q24H IVPB Last administered on 11/20/18at 21:34; Admin Dose 100 MLS/HR; Start 11/20/18 at 21:00 Fluconazole (Diflucan) 100 mg DAILY PO Last administered on 11/21/18at 08:05; Admin Dose 100 MG; Start 11/21/18 at 09:00 Methylprednisolone Sodium Succinate (Solu-Medrol) 60 mg Q6 IV ; Start 11/21/18 at 12:30; Status UNV JABIER SEBASTIAN Nov 21, 2018 12:29
[2018-11-21] MEDS: DIGOXIN 0.125 MG TAB PO SCH (13:00)
[2018-11-21] MEDS: METHYLPREDNISOLONE 125 MG INJ IV SCH ×3 (13:52→23:52)
--- NOTE | 2018-11-21 14:35 | CONS ---
Consult Date/Type/Reason Admit Date/Time Nov 16, 2018 at 17:17 Initial Consult Date Type of Consultation: Pulm Date/Time of Note DATE: 11/21/18 TIME: 14:33 Subjective No events overnight. Objective Vitals Vital Signs Date Temp Pulse Resp B/P (MAP) Pulse Ox O2 O2 Flow FiO2 Time Delivery Rate 11/21/18 52 20 92 Nasal 2.0 14:14 Cannula 11/21/18 97.4 109/53 11:21 (71) 11/20/18 32 16:16 Intake and Output 11/20/18 11/20/18 11/21/18 1515:00 23:00 07:00 IntakeIntake Total 720 ml 350 ml OutputOutput Total 130 ml 160 ml BalanceBalance 590 ml 190 ml Exam HEENT: Neck supple; no JVD; no LAD, 3/6 sys murmur CVS: RRR, S1 and S2 CHEST: Basilar rales ABD: Soft, NT, + BS EXT: ++ edema Results/Medications Result Diagram: 11/21/18 0549 11/21/18 0549 Results 24 hrs Laboratory Tests Test 11/20/18 16:58 11/20/18 21:32 11/21/18 05:49 11/21/18 07:55 Bedside Glucose 180 166 159 White Blood Count 10.2 Red Blood Count 4.48 Hemoglobin 10.1 L Hematocrit 34.0 L Mean Corpuscular Volume 75.9 L Mean Corpuscular 22.5 L Hemoglobin Mean Corpuscular 29.7 L Hemoglobin Concent Red Cell Distribution 19.7 H Width Platelet Count 265 Mean Platelet Volume 11.0 H Immature Granulocytes % 0.700 H Neutrophils % 93.5 H Lymphocytes % 2.3 L Monocytes % 3.4 Eosinophils % 0.0 Basophils % 0.1 Nucleated Red Blood 0.6 H Cells % Immature Granulocytes # 0.070 H Neutrophils # 9.5 H Lymphocytes # 0.2 L Monocytes # 0.4 Eosinophils # 0.0 Basophils # 0.0 Nucleated Red Blood 0.1 H Cells # Sodium Level 138 Potassium Level 5.9 H Chloride Level 104 Carbon Dioxide Level 19 L Anion Gap 15 H Blood Urea Nitrogen 62 H Creatinine 3.40 H Est Glomerular Filtrat Rate mL/min Glucose Level 154 # Calcium Level 8.9 Phosphorus Level 6.1 H Magnesium Level 2.2 Test 11/21/18 11:38 Bedside Glucose 151 Home Meds Active Scripts Furosemide* (Furosemide*) 40 Mg Tablet, 40 MG PO DAILY, #30 TAB Prov:DAVID RAUSCH NP 08/09/18 Clotrimazole* (Lotrimin*) 1%-30 Gm Cream..g., 1 APPLIC TOP BID, #1 TUB Please apply to the right lower extremity wound twice daily. Prov:DAVID RAUSCH NP 08/09/18 Insulin Glargine,Hum.rec.anlog (Basaglar Kwikpen U-100) 100 Unit/1 Ml Insuln.pen, 5 UNIT SC DAILY for 30 Days, #1 EA Prov:RAMIRO MORRIS MD 04/05/18 Linagliptin (TRADJENTA) 5 Mg Tablet, 5 MG PO DAILY for 30 Days, #30 TAB Prov:RAMIRO MORRIS MD 04/05/18 Insulin Aspart* (Novolog Insulin Pen*) 100 Unit/Ml Soln, 10 UNIT SC WITH LUNCH for 30 Days, #1 EA Prov:RAMIRO MORRIS MD 04/05/18 Insulin Aspart* (Novolog Insulin Pen*) 100 Unit/Ml Soln, 10 UNIT SC WITH DINNER for 30 Days, #1 EA Prov:RAMIRO MORRIS MD 04/05/18 Insulin Aspart* (Novolog Insulin Pen*) 100 Unit/Ml Soln, 6 UNIT SC WITH BREAKFAST for 30 Days, #1 EA Prov:RAMIRO MORRIS MD 04/05/18 Fluticasone-Vilanterol (Breo Ellipta Inhaler) 100-25 Mcg/Actuation Aer.pow.ba, 1 INH INH DAILY for 30 Days, #1 EA Prov:RAMIRO MORRIS MD 04/05/18 Aspirin (Aspirin) 81 Mg Chew, 81 MG PO DAILY for 30 Days, #30 TAB Prov:RAMIRO MORRIS MD 04/05/18 Metoprolol Tartrate* (Lopressor*) 25 Mg Tab, 75 MG PO BID for 30 Days, #60 TAB Prov:RAMIRO MORRIS MD 04/05/18 Hydralazine Hcl* (Apresoline*) 50 Mg Tab, 50 MG PO Q8 for 30 Days, #90 TAB Prov:RAMIRO MORRIS MD 04/05/18 Diltiazem Hcl* (Cardizem CD*) 120 Mg Cap.sr.24h, 120 MG PO BID for 30 Days, #60 TAB Prov:RAMIRO MORRIS MD 04/05/18 Apixaban* (Eliquis*) 5 Mg Tablet, 2.5 MG PO BID for 30 Days, #60 TAB Prov:RAMIRO MRORIS MD 04/05/18 Tiotropium [place]* (Spiriva*) 18 Mcg Cap.w.dev, 1 INH INH DAILY for 30 Days, #30 CAP Prov:RAMIRO MORRIS MD 04/05/18 Psyllium [place] (Metamucil) 0.52 Gm Capsule, 0.52 GM PO DAILY for 30 Days, #30 CAP Prov:RAMIRO MORRIS MD 04/19/17 Digoxin* (Digitek*) 0.125 Mg Tab, 0.125 MG PO DAILY@13, #30 3 Refills Prov:DALLAS PICKETT 03/22/15 Reported Medications Albuterol Sulfate* (Proair HFA*) 8.5 Gm Hfa.aer.ad, 2 PUFF INH Q6H PRN for WHEEZING AND SOB, INH 03/16/15 Omeprazole* (Omeprazole*) 20 Mg Capsule.dr, 20 MG PO DAILY, CAP 03/16/15 Medications Current Medications IV Flush (NS 3 ml) 3 ml PER PROTOCOL IV ; Start 11/16/18 at 19:30 Ondansetron HCl (Zofran Inj) 4 mg Q6H PRN IV NAUSEA/VOMITING; Start 11/16/18 at 19:30 Acetaminophen (Tylenol Tab) 650 mg Q6H PRN PO .PAIN 1-3 OR TEMP; Start 11/16/18 at 19:30 Acetaminophen/ Hydrocodone Bitart ([place] (5/325)) 1 tab Q6H PRN PO .MOD PAIN 4- 6 Last administered on 11/20/18at 17:10; Admin Dose 1 TAB; Start 11/16/18 at 19:30 Morphine Sulfate (morphine) 2 mg Q4H PRN IV .SEVERE PAIN 7-10 Last administered on 11/18/18at 00:13; Admin Dose 2 MG; Start 11/16/18 at 19:30 Docusate Sodium (Colace) 100 mg Q12H PRN PO .CONSTIPATION; Start 11/16/18 at 19:30 Zolpidem Tartrate (Ambien) 5 mg QHS PRN PO .INSOMNIA; Start 11/16/18 at 19:30 Apixaban (Eliquis) 2.5 mg BID PO Last administered on 11/21/18 08:05; Admin Dose 2.5 MG; Start 11/16/18 at 21:00 Aspirin (Aspirin) 81 mg DAILY PO Last administered on 11/21/18 08:05; Admin Dose 81 MG; Start 11/17/18 at 09:00 Clotrimazole (Lotrimin Cr) 1 applic BID TOP Last administered on 11/21/18 08:08; Admin Dose 1 APPLIC; Start 11/16/18 at 21:00 Digoxin (Digoxin) 0.125 mg DAILY@13 PO Last administered on 11/20/18 13:52; Admin Dose 0.125 MG; Start 11/17/18 at 13:00 Diltiazem HCl (Cardizem Cd) 120 mg BID PO Last administered on 11/21/18 08:07; Admin Dose 120 MG; Start 11/16/18 at 21:00 Hydralazine HCl (Apresoline) 50 mg Q8 PO Last administered on 11/21/18 13:53; Admin Dose 50 MG; Start 11/16/18 at 22:00 Metoprolol Tartrate (Lopressor) 75 mg BID PO Last administered on 11/21/18 08:07; Admin Dose 75 MG; Start 11/16/18 at 21:00 Tiotropium [place] (Spiriva) 1 inh DAILY INH Last administered on 11/21/18 11:36; Admin Dose 1 INH; Start 11/17/18 at 09:00 Diagnostic Test (Pha) (Accu-Chek) 1 ea 02 XX ; Start 11/17/18 at 02:00 Insulin Aspart (Novolog Insulin Pen) NOVOLOG *MILD* ALGORITHM WITH MEALS BEDTIME SC Last administered on 11/21/18 12:33; Admin Dose 1 UNIT; Start at 21:00 Furosemide (Lasix) 40 mg BID DIURETICS IV Last administered on 11/21/18 05:33; Admin Dose 40 MG; Start 11/17/18 at 06:00 Pantoprazole (Protonix Tab) 40 mg DAILY@06 PO Last administered on 3/2/19at 06:31; Admin Dose 40 MG; Start 11/17/18 at 06:00 Psyllium Hydrophilic Mucilloid (Metamucil) 1 pkt DAILY PO Last administered on 11/21/18at 08:07; Admin Dose 1 PKT; Start 11/17/18 at 09:00 Fluticasone/ Vilanterol (Breo Ellipta 100-25 Mcg Inh) 1 inh DAILY INH Last administered on 11/21/18at 08:08; Admin Dose 1 INH; Start 11/17/18 at 12:00 Albuterol/ Ipratropium (Duoneb) 3 ml Q4H RESP THERAPY HHN Last administered on 11/21/18at 14:12; Admin Dose 3 ML; Start 11/18/18 at 13:00 Linezolid (Zyvox) 600 mg BID PO Last administered on 11/21/18at 08:05; Admin Dose 600 MG; Start 11/18/18 at 21:00 Cefepime HCl 50 ml @ 100 mls/hr Q24H IVPB Last administered on 11/20/18at 21:34; Admin Dose 100 MLS/HR; Start 11/20/18 at 21:00 Fluconazole (Diflucan) 100 mg DAILY PO Last administered on 11/21/18at 08:05; Admin Dose 100 MG; Start 11/21/18 at 09:00 Methylprednisolone Sodium Succinate (Solu-Medrol) 60 mg Q6 IV Last administered on 11/21/18at 13:52; Admin Dose 60 MG; Start 11/21/18 at 13:00 Insulin Aspart (Novolog Insulin Pen) 7 unit WITH MEALS SC ; Start 11/21/18 at 17:55 Insulin Glargine (Lantus) 22 units DAILY@2000 SC ; Start 11/21/18 at 20:00 Assessment/Plan Assessment/Plan (Daily) IMP: 1. Dyspnea likely secondary to congestive heart failure, possible pneumonia. 2. Worsening renal failure. 3. Prior history of pulmonary embolus, on Eliquis. 4. History of diabetes mellitus. 5. Aortic stenosis. RECS: 1. Needs more diuresis 2. follow I/O's and renal function 3. am labs ISAEL MANTILLA MD Nov 21, 2018 14:35
[2018-11-21] MEDS: CEFEPIME 1GM/50 ML (PMX) 50 ML IVPB SCH (21:33)
[2018-11-21] MEDS: INSULIN GLARGINE [LANTus] (100 UNITS/ML) SYG SC SCH (21:53)
[2018-11-22] VITALS (12 sets, daily range): BP systolic 119–161; BP diastolic 59–75; PULSE 59–95; RESP 18–21
[2018-11-22] MEDS: ALBUTEROL/IPRATROPIUM (NEB) 3 ML AMP HHN SCH ×6 (01:03→19:40)
[2018-11-22] MEDS: ACCU-CHEK XX SCH (02:38)
[2018-11-22] MEDS: METHYLPREDNISOLONE 125 MG INJ IV SCH ×3 (05:25→17:18)
[2018-11-22] MEDS: PANTOPRAZOLE (EC) 40 MG TAB PO SCH (05:26)
[2018-11-22] MEDS: FUROSEMIDE 40 MG INJ IV SCH ×2 (05:26→17:18)
[2018-11-22] MEDS: APIXABAN 5 MG TABLET PO SCH ×2 (08:09→20:36)
[2018-11-22] MEDS: FLUTICASONE/VILANTEROL 100-25 INH SCH (08:09)
[2018-11-22] MEDS: PSYLLIUM 28% PACKET PO SCH (08:09)
[2018-11-22] MEDS: CLOTRIMAZOLE 1% 30 GM CR TOP SCH ×2 (08:09→20:41)
[2018-11-22] MEDS: TIOTROPIUM 18 MCG CAPSULE INHA DEV INH SCH (08:09)
[2018-11-22] MEDS: ZYVOX 600 MG TAB PO SCH ×2 (08:10→20:36)
[2018-11-22] MEDS: FLUCONAZOLE 100 MG TAB PO SCH (08:10)
[2018-11-22] MEDS: ASPIRIN 81 MG TAB PO SCH (08:10)
[2018-11-22] MEDS: INSULIN ASPART [NOVOLOG] 3 ML PEN SC SCH ×7 (08:32→20:38)
--- NOTE | 2018-11-22 09:14 | PN ---
Date/Time of Note Date/Time of Note DATE: 11/22/18 TIME: 09:13 Assessment/Plan VTE Prophylaxis Risk score (from Ns)>0 risk: 8 SCD applied (from Ns): No SCD contraindicated: other Pharmacological prophylaxis: other Lines/Catheters [facility]from [facility] Line Urinary Cath still in place: Yes Reason Cath still needed: urinary retention Assessment/Plan Hospital Course SUBJECTIVE: The patient continues to have respiratory distress, shortness of breath. The patient is receiving nebulizers. Continues to be on IV Solu- Medrol. No other events noted. The patient's urinary output is stable but he is still in positive fluid balance despite aggressive diuresis no fever, chills, new rash, hematuria, melena, vomiting, chest pain, tachypnea, diaphoresis ARF is worse and he is hyperkalemic OBJECTIVE: HEENT: Head is normocephalic. NECK: Supple. HEART: Regular rate. LUNGS: Show diminished breath sounds at the base. ABDOMEN: Soft, nontender to palpation without rebound or guarding. EXTREMITIES: Negative for clubbing, cyanosis. Positive edema. DERMATOLOGIC: No rashes. MUSCULOSKELETAL: No joint effusion. NEUROLOGIC: No change in exam. MEDICATIONS: The patient's medications have been reviewed. ASSESSMENT AND PLAN: 1. Nonoliguric acute kidney injury with previous baseline creatinine of 1.5 mg/dL. Etiology of acute kidney injury is multifactorial, likely hemodynamics, cardiorenal syndrome. The patient's renal function has declined in the last 24 to 48 hours. He is still in positive fluid balance despite diuresis. will give bumex for pulmonary congestion and hyperkalemia. If the patient is unable to be adequately diuresed fand if renal function should further decline, would consider renal replacement therapy. 2. hyperkalemia secondary to acute kidney injury and hyperglycemia. will give kayaxalate and bumex 3. Volume overload secondary to acute systolic, diastolic heart failure. The patient's repeat chest x-ray shows evidence of pulmonary congestion. Will reintroduce diuretic therapy, monitor renal function closely. 4. Anemia. Monitor hemoglobin and hematocrit levels. 5. Mineral bone disorder, monitor calcium and phosphorus levels. 6. Acute respiratory failure, etiology secondary to chronic heart failure, chronic obstructive pulmonary disease exacerbation. Continue nebulized steroids. Will reintroduce diuretics and monitor closely. 7. Lower extremity cellulitis with lymphedema. Continue antibiotic therapy. 8. Paroxysmal atrial fibrillation. Continue medical management. 9. Diabetes. Continue current insulin regimen. 10. Obesity. Continue dietary modification. 11. Severe aortic stenosis. Continue to monitor. May consider repeat 2D echo to evaluate valve area. Result Diagram: 11/21/18 0549 11/22/18 0605 Results 24hrs Laboratory Tests Test 11/21/18 11:38 11/21/18 17:40 11/21/18 21:43 11/22/18 02:32 Bedside Glucose 151 148 206 198 Test 11/22/18 06:05 11/22/18 07:44 Sodium Level 138 Potassium Level 6.2 *H Chloride Level 105 Carbon Dioxide Level 17 L Anion Gap 16 H Blood Urea Nitrogen 76 H Creatinine 3.88 H Est Glomerular Filtrat Rate mL/min Glucose Level 208 Calcium Level 9.1 Phosphorus Level 7.1 H Digoxin Level 1.1 Bedside Glucose 198 Exam/Review of Systems Exam Vitals Vital Signs Date Temp Pulse Resp B/P (MAP) Pulse Ox O2 O2 Flow FiO2 Time Delivery Rate 11/22/18 75 08:00 11/22/18 98.7 20 161/75 96 Nasal 07:54 (103) Cannula 11/22/18 3.0 05:40 11/20/18 32 16:16 Intake and Output 11/21/18 11/21/18 11/22/18 1414:59 22:59 06:59 IntakeIntake Total 770 ml 440 ml OutputOutput Total 200 ml 50 ml BalanceBalance 570 ml 390 ml Results Results 24hrs Laboratory Tests Test 11/21/18 11:38 11/21/18 17:40 11/21/18 21:43 11/22/18 02:32 Bedside Glucose 151 148 206 198 Test 11/22/18 06:05 11/22/18 07:44 Sodium Level 138 Potassium Level 6.2 *H Chloride Level 105 Carbon Dioxide Level 17 L Anion Gap 16 H Blood Urea Nitrogen 76 H Creatinine 3.88 H Est Glomerular Filtrat Rate mL/min Glucose Level 208 Calcium Level 9.1 Phosphorus Level 7.1 H Digoxin Level 1.1 Bedside Glucose 198 Medications Medication Current Medications IV Flush (NS 3 ml) 3 ml PER PROTOCOL IV ; Start 11/16/18 at 19:30 Ondansetron HCl (Zofran Inj) 4 mg Q6H PRN IV NAUSEA/VOMITING; Start 11/16/18 at 19:30 Acetaminophen (Tylenol Tab) 650 mg Q6H PRN PO .PAIN 1-3 OR TEMP; Start 11/16/18 at 19:30 Acetaminophen/ Hydrocodone Bitart ([place] (5/325)) 1 tab Q6H PRN PO .MOD PAIN 4- 6 Last administered on 11/20/18 17:10; Admin Dose 1 TAB; Start 11/16/18 at 19:30 Morphine Sulfate (morphine) 2 mg Q4H PRN IV .SEVERE PAIN 7-10 Last administered on 11/18/18 00:13; Admin Dose 2 MG; Start 11/16/18 at 19:30 Docusate Sodium (Colace) 100 mg Q12H PRN PO .CONSTIPATION; Start 11/16/18 at 19:30 Zolpidem Tartrate (Ambien) 5 mg QHS PRN PO .INSOMNIA; Start 11/16/18 at 19:30 Apixaban (Eliquis) 2.5 mg BID PO Last administered on 11/22/18 08:09; Admin Dose 2.5 MG; Start 11/16/18 at 21:00 Aspirin (Aspirin) 81 mg DAILY PO Last administered on 11/22/18 08:10; Admin Dose 81 MG; Start 11/17/18 at 09:00 Clotrimazole (Lotrimin Cr) 1 applic BID TOP Last administered on 11/22/18 08:09; Admin Dose 1 APPLIC; Start 11/16/18 at 21:00 Digoxin (Digoxin) 0.125 mg DAILY@13 PO Last administered on 11/20/18 13:52; Admin Dose 0.125 MG; Start 11/17/18 at 13:00 Diltiazem HCl (Cardizem Cd) 120 mg BID PO Last administered on 11/21/18 08:07; Admin Dose 120 MG; Start 11/16/18 at 21:00; Status Hold Hydralazine HCl (Apresoline) 50 mg Q8 PO Last administered on 11/22/18 05:26; Admin Dose 50 MG; Start 11/16/18 at 22:00 Tiotropium [employer] (Spiriva) 1 inh DAILY INH Last administered on 11/22/18 08:09; Admin Dose 1 INH; Start 11/17/18 at 09:00 Diagnostic Test (Pha) (Accu-Chek) 1 ea 02 XX Last administered on 11/22/18 02:38; Admin Dose 1 EA; Start 11/17/18 at 02:00 Insulin Aspart (Novolog Insulin Pen) NOVOLOG *MILD* ALGORITHM WITH MEALS BEDTIME SC Last administered on 11/22/18 08:32; Admin Dose 2 UNIT; Start 11/16/18 at 21:00 Furosemide (Lasix) 40 mg BID DIURETICS IV Last administered on 11/22/18 05:26; Admin Dose 40 MG; Start 11/17/18 at 06:00 Pantoprazole (Protonix Tab) 40 mg DAILY@06 PO Last administered on 11/22/18 05:26; Admin Dose 40 MG; Start 11/17/18 at 06:00 Psyllium Hydrophilic Mucilloid (Metamucil) 1 pkt DAILY PO Last administered on 11/22/18 08:09; Admin Dose 1 PKT; Start 11/17/18 at 09:00 Fluticasone/ Vilanterol (Breo Ellipta 100-25 Mcg Inh) 1 inh DAILY INH Last administered on 11/22/18 08:09; Admin Dose 1 INH; Start 11/17/18 at 12:00 Albuterol/ Ipratropium (Duoneb) 3 ml Q4H RESP THERAPY HHN Last administered on 11/22/18 05:40; Admin Dose 3 ML; Start 11/18/18 at 13:00 Linezolid (Zyvox) 600 mg BID PO Last administered on 11/22/18 08:10; Admin Dose 600 MG; Start 11/18/18 at 21:00 Cefepime HCl 50 ml @ 100 mls/hr Q24H IVPB Last administered on 11/21/18 21:33; Admin Dose 100 MLS/HR; Start 11/20/18 at 21:00 Fluconazole (Diflucan) 100 mg DAILY PO Last administered on 11/22/18 08:10; Admin Dose 100 MG; Start 11/21/18 at 09:00 Methylprednisolone Sodium Succinate (Solu-Medrol) 60 mg Q6 IV Last administered on 11/22/18 05:25; Admin Dose 60 MG; Start 11/21/18 at 13:00 Insulin Aspart (Novolog Insulin Pen) 7 unit WITH MEALS SC Last administered on 11/22/18at 08:32; Admin Dose 7 UNIT; Start 11/21/18 at 17:55 Insulin Glargine (Lantus) 22 units DAILY@2000 SC Last administered on 11/21/18at 21:53; Admin Dose 22 UNITS; Start 11/21/18 at 20:00 COURTNEY TAY DO Nov 22, 2018 09:14
[2018-11-22] MEDS ORDERED: SODIUM POLYSTYRENE 15 GM KIT (POWDER + SORBITOL) PO ONE (09:30)
[2018-11-22] MEDS ORDERED: BUMETANIDE 1 MG INJ IV ONE (09:30)
[2018-11-22] MEDS ORDERED: NA POLYST SULFON 15 GM/60 ML BTL ONE (10:41)
[2018-11-22] MEDS: DIGOXIN 0.125 MG TAB PO SCH (12:10)
--- NOTE | 2018-11-22 14:30 | CONS ---
DATE OF ADMISSION: 11/16/2018 DATE OF CONSULTATION: 11/22/2018 TYPE OF CONSULTATION: Cardiology. REFERRING PHYSICIAN: Karl Segura MD REASON FOR EVALUATION: Atrial fibrillation, bradycardia. HISTORY OF PRESENT ILLNESS: Ms. Deal is an 83-year-old woman known to me from multiple prior adm issions with history of hypertension, dyslipidemia, history of heart failure with preserved ejection fraction, history of atrial fibrillation who comes to the hospital now for evaluation of fluid retent ion and CHF. I have been asked to see patient in consultation because of these issues and also becau se of atrial fibrillation. Overnight, the patient had episodes of bradycardia to 40s, but now her he art rate is improved. The patient does not report any chest pain to my examination. However, the pa tient does appear to be with significant degree of fluid overload. It is not clear to me if she was not compliant with therapy or what happened to her. For now, conservative is expected. We will revi ew her medications closely and we are going to try to remove some AV hamilton agents. Other than that, the diuresis with conservative therapy would be expected. PAST MEDICAL HISTORY: Hypertension, dyslipidemia, history of heart failure with preserved ejection f raction, history of atrial fibrillation, history of secondary hypercoagulable state. ALLERGIES: NO KNOWN DRUG ALLERGIES. SOCIAL HISTORY: The patient does not smoke, does not drink, does not drink, does not use any drugs. FAMILY HISTORY: Negative for sudden cardiac or premature coronary artery disease. MEDICATIONS: She is on: 1. Insulin sliding scale. 2. Fluconazole. 3. Cefepime. 4. Linezolid. 5. Digoxin 0.125 mg p.o. b.i.d. 6. Aspirin 81 mg a day. 7. Lasix 40 mg IV twice a day. 8. Eliquis 2.5 mg p.o. b.i.d. 9. Clotrimazole. REVIEW OF SYSTEMS: CONSTITUTIONAL: No fevers, no chills, no recent weight changes. HEENT: No changes in vision or hearing. CARDIAC: Atrial fibrillation, shortness of breath. RESPIRATORY: Shortness of breath. GASTROINTESTINAL: No nausea, vomiting, diarrhea, constipation. GENITOURINARY: No dysuria or hematuria. NEUROLOGIC: No focal deficits. HEMATOLOGIC: No history of anemia. PSYCHIATRIC: No history of psychiatric illness. PHYSICAL EXAMINATION: VITAL SIGNS: Temperature is 98.6, heart rate now 78, blood pressure 125/59. GENERAL: She is an obese woman in no acute distress, alert and oriented x3, less alert than usual. HEENT: Head is normocephalic, atraumatic. NECK: Supple. JVD is 8 to 9 cm. No lymphadenopathy. HEART: Irregularly irregular with soft holosystolic murmur. PMI is minimally displaced. There is n o S3. LUNGS: Coarse to base. ABDOMEN: Distended. Bowel sounds are present. There is no hepatosplenomegaly. GENITOURINARY: Intact. EXTREMITIES: Show 1 to 2+ edema. DIAGNOSTIC DATA: ECG read by me: Atrial fibrillation with rate control. LABORATORY DATA: White blood cell count 10.2, hemoglobin 10.1, platelets 265. INR is 1.53. Sodium 138, potassium 6.2, BUN is 76, creatinine is 3.8. ASSESSMENT AND PLAN: 1. Atrial fibrillation. The patient has atrial fibrillation, chronic. Continue rate control strate gy now and follow. 2. Bradycardia. The patient has 1 episode of bradycardia to 38, now improved, possibly related to h ypoxia. We will adjust medications as necessary and monitor closely. 3. Hypercoagulable state. The patient is currently on Eliquis. Continue to follow. 4. Renal dysfunction. Creatinine is higher. Renal team follows. We will monitor closely. 5. Hyperkalemia. Potassium is on the high side. Continue to treat as indicated. 6. Congestive heart failure. The patient is in heart failure, acute on chronic, diastolic. Continu e Lasix and fluid therapy. I would like to thank Dr. Segura for referring this patient for my evaluation. Dictated By: JUAN KEY MD ML/NTS Conf#: [id number] DID#: [id number] CC: JOCELINE MCCALLUM DO; KARL SEGURA MD;*End*
--- NOTE | 2018-11-22 14:42 | CONS ---
Consult Date/Type/Reason Admit Date/Time Nov 16, 2018 at 17:17 Initial Consult Date Type of Consultation: Pulm Date/Time of Note DATE: 11/22/18 TIME: 14:41 Subjective No events. Remains on 3 L NC. Dyspnea noted. Objective Vitals Vital Signs Date Temp Pulse Resp B/P (MAP) Pulse Ox O2 O2 Flow FiO2 Time Delivery Rate 11/22/18 95 12:00 11/22/18 98.6 18 125/59 92 11:39 (81) 11/22/18 Nasal 3.0 09:45 Cannula 11/20/18 32 16:16 Intake and Output 11/21/18 11/21/18 11/22/18 1515:00 23:00 07:00 IntakeIntake Total 770 ml 440 ml OutputOutput Total 200 ml 50 ml BalanceBalance 570 ml 390 ml Exam HEENT: Neck supple; no JVD; no LAD, 3/6 sys murmur CVS: RRR, S1 and S2 CHEST: Basilar rales ABD: Soft, NT, + BS EXT: ++ edema Results/Medications Result Diagram: 11/21/18 0549 11/22/18 0605 Results 24 hrs Laboratory Tests Test 11/21/18 17:40 11/21/18 21:43 11/22/18 02:32 11/22/18 06:05 Bedside Glucose 148 206 198 Sodium Level 138 Potassium Level 6.2 *H Chloride Level 105 Carbon Dioxide Level 17 L Anion Gap 16 H Blood Urea Nitrogen 76 H Creatinine 3.88 H Est Glomerular Filtrat Rate mL/min Glucose Level 208 Calcium Level 9.1 Phosphorus Level 7.1 H Digoxin Level 1.1 Test 11/22/18 07:44 11/22/18 12:05 Bedside Glucose 198 184 Home Meds Active Scripts Furosemide* (Furosemide*) 40 Mg Tablet, 40 MG PO DAILY, #30 TAB Prov:DAVID RAUSCH NP 08/09/18 Clotrimazole* (Lotrimin*) 1%-30 Gm Cream..g., 1 APPLIC TOP BID, #1 TUB Please apply to the right lower extremity wound twice daily. Prov:DAVID RAUSCH NP 08/09/18 Insulin Glargine,Hum.rec.anlog (Basaglar Kwikpen U-100) 100 Unit/1 Ml Insuln.pen, 5 UNIT SC DAILY for 30 Days, #1 EA Prov:RAMIRO MORRIS MD 04/05/18 Linagliptin (TRADJENTA) 5 Mg Tablet, 5 MG PO DAILY for 30 Days, #30 TAB Prov:RAMIRO MORRIS MD 04/05/18 Insulin Aspart* (Novolog Insulin Pen*) 100 Unit/Ml Soln, 10 UNIT SC WITH LUNCH for 30 Days, #1 EA Prov:RAMIRO MORRIS MD 04/05/18 Insulin Aspart* (Novolog Insulin Pen*) 100 Unit/Ml Soln, 10 UNIT SC WITH DINNER for 30 Days, #1 EA Prov:RAMIRO MORRIS MD 04/05/18 Insulin Aspart* (Novolog Insulin Pen*) 100 Unit/Ml Soln, 6 UNIT SC WITH BREAKFAST for 30 Days, #1 EA Prov:RAMIRO MORRIS MD 04/05/18 Fluticasone-Vilanterol (Breo Ellipta Inhaler) 100-25 Mcg/Actuation Aer.pow.ba, 1 INH INH DAILY for 30 Days, #1 EA Prov:RAMIRO MORRIS MD 04/05/18 Aspirin (Aspirin) 81 Mg Chew, 81 MG PO DAILY for 30 Days, #30 TAB Prov:RAMIRO MORRIS MD 04/05/18 Metoprolol Tartrate* (Lopressor*) 25 Mg Tab, 75 MG PO BID for 30 Days, #60 TAB Prov:RAMIRO MORRIS MD 04/05/18 Hydralazine Hcl* (Apresoline*) 50 Mg Tab, 50 MG PO Q8 for 30 Days, #90 TAB Prov:RAMIRO MORRIS MD 04/05/18 Diltiazem Hcl* (Cardizem CD*) 120 Mg Cap.sr.24h, 120 MG PO BID for 30 Days, #60 TAB Prov:RAMIRO MORRIS MD 04/05/18 Apixaban* (Eliquis*) 5 Mg Tablet, 2.5 MG PO BID for 30 Days, #60 TAB Prov:RAMIRO MORRIS MD 04/05/18 Tiotropium [place]* (Spiriva*) 18 Mcg Cap.w.dev, 1 INH INH DAILY for 30 Days, #30 CAP Prov:RAMIRO MORRIS MD 04/05/18 Psyllium Husk (Metamucil) 0.52 Gm Capsule, 0.52 GM PO DAILY for 30 Days, #30 CAP Prov:RAMIRO MORRIS MD 04/19/17 Digoxin* (Digitek*) 0.125 Mg Tab, 0.125 MG PO DAILY@13, #30 3 Refills Prov:DALLAS PICKETT 03/22/15 Reported Medications Albuterol Sulfate* (Proair HFA*) 8.5 Gm Hfa.aer.ad, 2 PUFF INH Q6H PRN for WHEEZING AND SOB, INH 03/16/15 Omeprazole* (Omeprazole*) 20 Mg Capsule.dr, 20 MG PO DAILY, CAP 03/16/15 Medications Current Medications IV Flush (NS 3 ml) 3 ml PER PROTOCOL IV ; Start 11/16/18 at 19:30 Ondansetron HCl (Zofran Inj) 4 mg Q6H PRN IV NAUSEA/VOMITING; Start 11/16/18 at 19:30 Acetaminophen (Tylenol Tab) 650 mg Q6H PRN PO .PAIN 1-3 OR TEMP; Start 11/16/18 at 19:30 Acetaminophen/ Hydrocodone Bitart ([place] (5/325)) 1 tab Q6H PRN PO .MOD PAIN 4- 6 Last administered on 11/20/18at 17:10; Admin Dose 1 TAB; Start 11/16/18 at 19:30 Morphine Sulfate (morphine) 2 mg Q4H PRN IV .SEVERE PAIN 7-10 Last administered on 11/18/18at 00:13; Admin Dose 2 MG; Start 11/16/18 at 19:30 Docusate Sodium (Colace) 100 mg Q12H PRN PO .CONSTIPATION; Start 11/16/18 at 19:30 Zolpidem Tartrate (Ambien) 5 mg QHS PRN PO .INSOMNIA; Start 11/16/18 at 19:30 Apixaban (Eliquis) 2.5 mg BID PO Last administered on 11/22/18 08:09; Admin Dose 2.5 MG; Start 11/16/18 at 21:00 Aspirin (Aspirin) 81 mg DAILY PO Last administered on 11/22/18 08:10; Admin Dose 81 MG; Start 11/17/18 at 09:00 Clotrimazole (Lotrimin Cr) 1 applic BID TOP Last administered on 11/22/18 08:09; Admin Dose 1 APPLIC; Start 11/16/18 at 21:00 Digoxin (Digoxin) 0.125 mg DAILY@13 PO Last administered on 11/22/18 12:10; Admin Dose 0.125 MG; Start 11/17/18 at 13:00 Diltiazem HCl (Cardizem Cd) 120 mg BID PO Last administered on 11/21/18 08:07; Admin Dose 120 MG; Start 11/16/18 at 21:00; Status Hold Hydralazine HCl (Apresoline) 50 mg Q8 PO Last administered on 11/22/18 13:18; Admin Dose 50 MG; Start 11/16/18 at 22:00 Tiotropium [place] (Spiriva) 1 inh DAILY INH Last administered on 11/22/18 08:09; Admin Dose 1 INH; Start 11/17/18 at 09:00 Diagnostic Test (Pha) (Accu-Chek) 1 ea 02 XX Last administered on 11/22/18 02:38; Admin Dose 1 EA; Start 11/17/18 at 02:00 Insulin Aspart (Novolog Insulin Pen) NOVOLOG *MILD* ALGORITHM WITH MEALS BEDTIME SC Last administered on 11/22/18 12:23; Admin Dose 2 UNIT; Start 11/16/18 at 21:00 Furosemide (Lasix) 40 mg BID DIURETICS IV Last administered on 11/22/18 05:26; Admin Dose 40 MG; Start 11/17/18 at 06:00 Pantoprazole (Protonix Tab) 40 mg DAILY@06 PO Last administered on 11/22/18 05:26; Admin Dose 40 MG; Start 11/17/18 at 06:00 Psyllium Hydrophilic Mucilloid (Metamucil) 1 pkt DAILY PO Last administered on 11/22/18 08:09; Admin Dose 1 PKT; Start 11/17/18 at 09:00 Fluticasone/ Vilanterol (Breo Ellipta 100-25 Mcg Inh) 1 inh DAILY INH Last administered on 11/22/18 08:09; Admin Dose 1 INH; Start 11/17/18 at 12:00 Albuterol/ Ipratropium (Duoneb) 3 ml Q4H RESP THERAPY HHN Last administered on 11/22/18 09:45; Admin Dose 3 ML; Start 11/18/18 at 13:00 Linezolid (Zyvox) 600 mg BID PO Last administered on 11/22/18 08:10; Admin Dose 600 MG; Start 11/18/18 at 21:00 Cefepime HCl 50 ml @ 100 mls/hr Q24H IVPB Last administered on 11/21/18 21:33; Admin Dose 100 MLS/HR; Start 11/20/18 at 21:00 Fluconazole (Diflucan) 100 mg DAILY PO Last administered on 11/22/18 08:10; Admin Dose 100 MG; Start 11/21/18 at 09:00 Methylprednisolone Sodium Succinate (Solu-Medrol) 60 mg Q6 IV Last administered on 11/22/18 12:10; Admin Dose 60 MG; Start 11/21/18 at 13:00 Insulin Aspart (Novolog Insulin Pen) 7 unit WITH MEALS SC Last administered on 11/22/18 12:23; Admin Dose 7 UNIT; Start 11/21/18 at 17:55 Insulin Glargine (Lantus) 22 units DAILY@2000 SC Last administered on 11/21/18 21:53; Admin Dose 22 UNITS; Start 11/21/18 at 20:00 Assessment/Plan Assessment/Plan (Daily) IMP: 1. Dyspnea likely secondary to congestive heart failure, possible pneumonia. 2. Worsening renal failure. 3. Prior history of pulmonary embolus, on Eliquis. 4. History of diabetes mellitus. 5. Aortic stenosis RECS: 1. Agree with bumex 2. Follow I/O's and renal function 3. Am labs/CXR ISAEL MANTILLA MD Nov 22, 2018 14:42
--- NOTE | 2018-11-22 15:53 | CONS ---
Assessment/Plan Assessment/Plan Hospital Course (Demo Recall) No acute events. Patient is awake, remains tachypneic, no fevers overnight Microbiology: Blood culture + Staph 1 out of 2 sets, urine culture + yeast. Left lower extremity wound culture growing Enterobacter cloaca, gram-negative rods, staph species Chest x-ray this morning revealed CHF bilateral pleural effusions left greater than right and diffuse interstitial edema Indwelling: [place] Antimicrobials: Zyvox cefepime, Diflucan Physical examination: Well-developed morbidly obese -[place] woman who is awake in no distress. Head atraumatic normocephalic sclera nonicteric. Neck is supple. Chest rise symmetrical breath sounds with diffuse crackles and expiratory wheezes. Heart: S1-S2.. Abdomen obese soft, bowel sounds present. Extremities: Bilateral lower extremities edema erythema and multiple wounds, left more than right Assessment: 1. Sepsis, present on admission 2. Bacteremia cw contaminant 3. 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 Urinary tract infection 5. Acute hypoxemic respiratory failure secondary to pulmonary edema and CHF ex acerbation, poss PNA 6. Morbid obesity 7. Atrial fibrillation 8. Diabetes 9. Acute kidney failure Plan: Remains unchanged, still with significant tachypnea and SOB, continue antibiotics, diuresis, local wound care, f/u pulmonary/renal rec-s [facility] staff Consultation Date/Type/Reason Admit Date/Time Nov 16, 2018 at 17:17 Initial Consult Date Type of Consult id Date/Time of Note DATE: 11/22/18 TIME: 15:52 Exam/Review of Systems Exam Vitals Vital Signs Date Temp Pulse Resp B/P (MAP) Pulse Ox O2 O2 Flow FiO2 Time Delivery Rate 11/22/18 80 20 98 Nasal 3.0 14:40 Cannula 11/22/18 98.6 125/59 11:39 (81) 11/20/18 32 16:16 Intake and Output 11/21/18 11/21/18 11/22/18 1515:00 23:00 07:00 IntakeIntake Total 770 ml 440 ml OutputOutput Total 200 ml 50 ml BalanceBalance 570 ml 390 ml Results Result Diagram: 11/21/18 0549 11/22/18 1413 Results 24hrs Laboratory Tests Test 11/21/18 17:40 11/21/18 21:43 11/22/18 02:32 11/22/18 06:05 Bedside Glucose 148 206 198 Sodium Level 138 Potassium Level 6.2 *H Chloride Level 105 Carbon Dioxide Level 17 L Anion Gap 16 H Blood Urea Nitrogen 76 H Creatinine 3.88 H Est Glomerular Filtrat Rate mL/min Glucose Level 208 Calcium Level 9.1 Phosphorus Level 7.1 H Digoxin Level 1.1 Test 11/22/18 07:44 11/22/18 12:05 11/22/18 14:13 Bedside Glucose 198 184 Sodium Level 137 Potassium Level 6.0 H Chloride Level 103 Carbon Dioxide Level 19 L Anion Gap 15 H Blood Urea Nitrogen 78 H Creatinine 4.17 H Est Glomerular Filtrat Rate mL/min Glucose Level 182 Calcium Level 9.1 Medications Medication Current Medications IV Flush (NS 3 ml) 3 ml PER PROTOCOL IV ; Start 11/16/18 at 19:30 Ondansetron HCl (Zofran Inj) 4 mg Q6H PRN IV NAUSEA/VOMITING; Start 11/16/18 at 19:30 Acetaminophen (Tylenol Tab) 650 mg Q6H PRN PO .PAIN 1-3 OR TEMP; Start 11/16/18 at 19:30 Acetaminophen/ Hydrocodone Bitart ([place] (5/325)) 1 tab Q6H PRN PO .MOD PAIN 4- 6 Last administered on 11/20/18at 17:10; Admin Dose 1 TAB; Start 11/16/18 at 19:30 Morphine Sulfate (morphine) 2 mg Q4H PRN IV .SEVERE PAIN 7-10 Last administered on 11/18/18at 00:13; Admin Dose 2 MG; Start 11/16/18 at 19:30 Docusate Sodium (Colace) 100 mg Q12H PRN PO .CONSTIPATION; Start 11/16/18 at 19:30 Zolpidem Tartrate (Ambien) 5 mg QHS PRN PO .INSOMNIA; Start 11/16/18 at 19:30 Apixaban (Eliquis) 2.5 mg BID PO Last administered on 11/22/18at 08:09; Admin Dose 2.5 MG; Start 11/16/18 at 21:00 Aspirin (Aspirin) 81 mg DAILY PO Last administered on 11/22/18at 08:10; Admin Dose 81 MG; Start 11/17/18 at 09:00 Clotrimazole (Lotrimin Cr) 1 applic BID TOP Last administered on 11/22/18 08:09; Admin Dose 1 APPLIC; Start 11/16/18 at 21:00 Digoxin (Digoxin) 0.125 mg DAILY@13 PO Last administered on 11/22/18 12:10; Admin Dose 0.125 MG; Start 11/17/18 at 13:00 Diltiazem HCl (Cardizem Cd) 120 mg BID PO Last administered on 11/21/18 08:07; Admin Dose 120 MG; Start 11/16/18 at 21:00; Status Hold Hydralazine HCl (Apresoline) 50 mg Q8 PO Last administered on 11/22/18 13:18; Admin Dose 50 MG; Start 11/16/18 at 22:00 Tiotropium [place] (Spiriva) 1 inh DAILY INH Last administered on 11/22/18 08:09; Admin Dose 1 INH; Start 11/17/18 at 09:00 Diagnostic Test (Pha) (Accu-Chek) 1 ea 02 XX Last administered on 11/22/18 02:38; Admin Dose 1 EA; Start 11/17/18 at 02:00 Insulin Aspart (Novolog Insulin Pen) NOVOLOG *MILD* ALGORITHM WITH MEALS BEDTI ME SC Last administered on 11/22/18 12:23; Admin Dose 2 UNIT; Start 11/16/18 at 21:00 Furosemide (Lasix) 40 mg BID DIURETICS IV Last administered on 11/22/18 05:26; Admin Dose 40 MG; Start 11/17/18 at 06:00 Pantoprazole (Protonix Tab) 40 mg DAILY@06 PO Last administered on 11/22/18 05:26; Admin Dose 40 MG; Start 11/17/18 at 06:00 Psyllium Hydrophilic Mucilloid (Metamucil) 1 pkt DAILY PO Last administered on 11/22/18 08:09; Admin Dose 1 PKT; Start 11/17/18 at 09:00 Fluticasone/ Vilanterol (Breo Ellipta 100-25 Mcg Inh) 1 inh DAILY INH Last administered on 11/22/18 08:09; Admin Dose 1 INH; Start 11/17/18 at 12:00 Albuterol/ Ipratropium (Duoneb) 3 ml Q4H RESP THERAPY HHN Last administered on 11/22/18 14:40; Admin Dose 3 ML; Start 11/18/18 at 13:00 Linezolid (Zyvox) 600 mg BID PO Last administered on 11/22/18 08:10; Admin Dose 600 MG; Start 11/18/18 at 21:00 Cefepime HCl 50 ml @ 100 mls/hr Q24H IVPB Last administered on 11/21/18 21:33; Admin Dose 100 MLS/HR; Start 11/20/18 at 21:00 Fluconazole (Diflucan) 100 mg DAILY PO Last administered on 11/22/18 08:10; Admin Dose 100 MG; Start 11/21/18 at 09:00 Methylprednisolone Sodium Succinate (Solu-Medrol) 60 mg Q6 IV Last administered on 11/22/18 12:10; Admin Dose 60 MG; Start 11/21/18 at 13:00 Insulin Aspart (Novolog Insulin Pen) 7 unit WITH MEALS SC Last administered on 11/22/18 12:23; Admin Dose 7 UNIT; Start 11/21/18 at 17:55 Insulin Glargine (Lantus) 22 units DAILY@2000 SC Last administered on 11/21/18 21:53; Admin Dose 22 UNITS; Start 11/21/18 at 20:00 ROCHELLE STERLING NP Nov 22, 2018 15:53
--- NOTE | 2018-11-22 18:24 | PN ---
Date/Time of Note Date/Time of Note DATE: 11/22/18 TIME: 18:20 Assessment/Plan VTE Prophylaxis Risk score (from Nsg)>0 risk: 11 Pharmacological prophylaxis: apixaban Lines/Catheters IV Catheter Type (from Nrsg): Mid Line Assessment/Plan Hospital Course 1. Lower extremity cellulitis secondary to lymphedema-improved Zyvox and Rocephin IV Cultures noted ID consultation appreciated Lasix IV 2. Acute respiratory distress secondary to acute on chronic diastolic and systolic heart failure exacerbation on COPD BNP is elevated repeat chest x-ray does show CHF Continue scheduled DuoNeb, Spiriva and Breo Patient did receive a short course of steroids, patient continues to be wheezing and hence started steroids once again yesterday, frequency decreased due to delirium Pulmonology consultation appreciated Continue Lasix Continue cardiac meds 3. Paroxysmal A. fib Continue Eliquis 4. History of PE Continue Eliquis 5. Hypertension Continue home meds 6. Acute kidney injury with hyperkalemia on CKD likely secondary to hemo dynamics and diuresis Nephrology consultation appreciated, patient will likely require temporary hem odialysis due to volume overload and hyperkalemia Status post Kayexalate today Vancomycin has been discontinued 7. Diabetes Sugars are currently stable but have started steroids and so increased basal and mealtime insulin yesterday Renal function has declined and hence will increase insulin gradually Monitor 8. Delirium Patient is beginning to exhibit signs of delirium secondary to prolonged h ospitalization as well as steroids Frequency of steroids decreased to every 8 hours, continue to taper in the coming days 9. Obesity Lifestyle changes 10. Aortic stenosis 11. COPD Continue home Breo as well as DuoNeb and Spiriva Prophylaxis: Eliquis DC planning: Not stable for DC, patient is not interested in eventual shelter placement Result Diagram: 11/21/18 0549 11/22/18 1413 Results 24hrs Laboratory Tests Test 11/21/18 21:43 11/22/18 02:32 11/22/18 06:05 11/22/18 07:44 Bedside Glucose 206 198 198 Sodium Level 138 Potassium Level 6.2 *H Chloride Level 105 Carbon Dioxide Level 17 L Anion Gap 16 H Blood Urea Nitrogen 76 H Creatinine 3.88 H Est Glomerular Filtrat Rate mL/min Glucose Level 208 Calcium Level 9.1 Phosphorus Level 7.1 H Digoxin Level 1.1 Test 11/22/18 12:05 11/22/18 14:13 11/22/18 17:22 Bedside Glucose 184 186 Sodium Level 137 Potassium Level 6.0 H Chloride Level 103 Carbon Dioxide Level 19 L Anion Gap 15 H Blood Urea Nitrogen 78 H Creatinine 4.17 H Est Glomerular Filtrat Rate mL/min Glucose Level 182 Calcium Level 9.1 Subjective 24 Hr Interval Summary Constitutional: disoriented Exam/Review of Systems Exam Vitals Vital Signs Date Temp Pulse Resp B/P (MAP) Pulse Ox O2 O2 Flow FiO2 Time Delivery Rate 11/22/18 84 22 98 Nasal 3.0 17:34 Cannula 11/22/18 98.2 135/63 15:58 (87) 11/20/18 32 16:16 Intake and Output 11/21/18 11/21/18 11/22/18 1414:59 22:59 06:59 IntakeIntake Total 770 ml 440 ml OutputOutput Total 200 ml 50 ml BalanceBalance 570 ml 390 ml Constitutional: alert Psych: confusion Respiratory: wheezing Cardiovascular: regular rate and rhythm Gastrointestinal: soft; No distended Musculoskeletal: nl extremities to inspection Results Results 24hrs Laboratory Tests Test 11/21/18 21:43 11/22/18 02:32 11/22/18 06:05 11/22/18 07:44 Bedside Glucose 206 198 198 Sodium Level 138 Potassium Level 6.2 *H Chloride Level 105 Carbon Dioxide Level 17 L Anion Gap 16 H Blood Urea Nitrogen 76 H Creatinine 3.88 H Est Glomerular Filtrat Rate mL/min Glucose Level 208 Calcium Level 9.1 Phosphorus Level 7.1 H Digoxin Level 1.1 Test 11/22/18 12:05 11/22/18 14:13 11/22/18 17:22 Bedside Glucose 184 186 Sodium Level 137 Potassium Level 6.0 H Chloride Level 103 Carbon Dioxide Level 19 L Anion Gap 15 H Blood Urea Nitrogen 78 H Creatinine 4.17 H Est Glomerular Filtrat Rate mL/min Glucose Level 182 Calcium Level 9.1 Medications Medication Current Medications IV Flush (NS 3 ml) 3 ml PER PROTOCOL IV ; Start 11/16/18 at 19:30 Ondansetron HCl (Zofran Inj) 4 mg Q6H PRN IV NAUSEA/VOMITING; Start 11/16/18 at 19:30 Acetaminophen (Tylenol Tab) 650 mg Q6H PRN PO .PAIN 1-3 OR TEMP; Start 11/16/18 at 19:30 Acetaminophen/ Hydrocodone Bitart ([place] (5/325)) 1 tab Q6H PRN PO .MOD PAIN 4-6 Last administered on 11/20/18 17:10; Admin Dose 1 TAB; Start 11/16/18 at 19:30 Morphine Sulfate (morphine) 2 mg Q4H PRN IV .SEVERE PAIN 7-10 Last administered on 11/18/18 00:13; Admin Dose 2 MG; Start 11/16/18 at 19:30 Docusate Sodium (Colace) 100 mg Q12H PRN PO .CONSTIPATION; Start 11/16/18 at 19:30 Zolpidem Tartrate (Ambien) 5 mg QHS PRN PO .INSOMNIA; Start 11/16/18 at 19:30 Apixaban (Eliquis) 2.5 mg BID PO Last administered on 11/22/18 08:09; Admin Dose 2.5 MG; Start 11/16/18 at 21:00 Aspirin (Aspirin) 81 mg DAILY PO Last administered on 11/22/18 08:10; Admin Dose 81 MG; Start 11/17/18 at 09:00 Clotrimazole (Lotrimin Cr) 1 applic BID TOP Last administered on 11/22/18 08:09; Admin Dose 1 APPLIC; Start 11/16/18 at 21:00 Digoxin (Digoxin) 0.125 mg DAILY@13 PO Last administered on 11/22/18 12:10; Admin Dose 0.125 MG; Start 11/17/18 at 13:00 Diltiazem HCl (Cardizem Cd) 120 mg BID PO Last administered on 11/21/18 08:07; Admin Dose 120 MG; Start 11/16/18 at 21:00; Status Hold Hydralazine HCl (Apresoline) 50 mg Q8 PO Last administered on 11/22/18 13:18; Admin Dose 50 MG; Start 11/16/18 at 22:00 Tiotropium [place] (Spiriva) 1 inh DAILY INH Last administered on 11/22/18 08:09; Admin Dose 1 INH; Start 11/17/18 at 09:00 Diagnostic Test (Pha) (Accu-Chek) 1 ea 02 XX Last administered on 11/22/18 02:38; Admin Dose 1 EA; Start 11/17/18 at 02:00 Insulin Aspart (Novolog Insulin Pen) NOVOLOG *MILD* ALGORITHM WITH MEALS BEDTIME SC Last administered on 11/22/18 17:46; Admin Dose 2 UNIT; Start 11/16/18 at 21:00 Furosemide (Lasix) 40 mg BID DIURETICS IV Last administered on 11/22/18 17:18; Admin Dose 40 MG; Start 11/17/18 at 06:00 Pantoprazole (Protonix Tab) 40 mg DAILY@06 PO Last administered on 11/22/18 05:26; Admin Dose 40 MG; Start 11/17/18 at 06:00 Psyllium Hydrophilic Mucilloid (Metamucil) 1 pkt DAILY PO Last administered on 11/22/18 08:09; Admin Dose 1 PKT; Start 11/17/18 at 09:00 Fluticasone/ Vilanterol (Breo Ellipta 100-25 Mcg Inh) 1 inh DAILY INH Last adm inistered on 11/22/18 08:09; Admin Dose 1 INH; Start 11/17/18 at 12:00 Albuterol/ Ipratropium (Duoneb) 3 ml Q4H RESP THERAPY HHN Last administered on 11/22/18 17:33; Admin Dose 3 ML; Start 11/18/18 at 13:00 Linezolid (Zyvox) 600 mg BID PO Last administered on 11/22/18 08:10; Admin Dose 600 MG; Start 11/18/18 at 21:00 Cefepime HCl 50 ml @ 100 mls/hr Q24H IVPB Last administered on 11/21/18 21:33; Admin Dose 100 MLS/HR; Start 11/20/18 at 21:00 Fluconazole (Diflucan) 100 mg DAILY PO Last administered on 11/22/18 08:10; Admin Dose 100 MG; Start 11/21/18 at 09:00 Methylprednisolone Sodium Succinate (Solu-Medrol) 60 mg Q6 IV Last administered on 11/22/18 17:18; Admin Dose 60 MG; Start 11/21/18 at 13:00 Insulin Aspart (Novolog Insulin Pen) 7 unit WITH MEALS SC Last administered on 11/22/18 17:46; Admin Dose 7 UNIT; Start 11/21/18 at 17:55 Insulin Glargine (Lantus) 22 units DAILY@2000 SC Last administered on 11/21/18at 21:53; Admin Dose 22 UNITS; Start 11/21/18 at 20:00 JABIER SEBASTIAN Nov 22, 2018 18:24
[2018-11-22] MEDS: CEFEPIME 1GM/50 ML (PMX) 50 ML IVPB SCH (20:36)
[2018-11-22] MEDS: INSULIN GLARGINE [LANTus] (100 UNITS/ML) SYG SC SCH (20:49)
[2018-11-22] MEDS: ZOLPIDEM 5 MG TAB PO PRN (23:20)
[2018-11-23] VITALS (35 sets, daily range): BP systolic 101–173; BP diastolic 32–116; PULSE 69–107; RESP 12–28
[2018-11-23] MEDS: ALBUTEROL/IPRATROPIUM (NEB) 3 ML AMP HHN SCH ×5 (01:12→21:00)
[2018-11-23] MEDS: ACCU-CHEK XX SCH (02:00)
[2018-11-23] MEDS ORDERED: HALOPERIDOL 5 MG INJ IM STA (03:08)
[2018-11-23] MEDS ORDERED: BUMETANIDE 1 MG INJ IV ONE (04:00)
[2018-11-23] MEDS: FUROSEMIDE 40 MG INJ IV SCH (05:26)
[2018-11-23] MEDS: METHYLPREDNISOLONE 125 MG INJ IV SCH ×3 (05:26→22:53)
[2018-11-23] MEDS: PANTOPRAZOLE (EC) 40 MG TAB PO SCH (06:00)
[2018-11-23] MEDS: INSULIN ASPART [NOVOLOG] 3 ML PEN SC SCH ×7 (07:55→20:09)
[2018-11-23] MEDS: FLUTICASONE/VILANTEROL 100-25 INH SCH (09:00)
[2018-11-23] MEDS: TIOTROPIUM 18 MCG CAPSULE INHA DEV INH SCH (09:00)
[2018-11-23] MEDS: PSYLLIUM 28% PACKET PO SCH (09:00)
[2018-11-23] MEDS: APIXABAN 5 MG TABLET PO SCH ×2 (09:00→20:02)
[2018-11-23] MEDS: ZYVOX 600 MG TAB PO SCH ×2 (09:00→20:12)
[2018-11-23] MEDS: FLUCONAZOLE 100 MG TAB PO SCH (09:00)
[2018-11-23] MEDS: ASPIRIN 81 MG TAB PO SCH (09:00)
--- NOTE | 2018-11-23 09:29 | PN ---
DATE: 11/23/2018 SUBJECTIVE: I spoke with the patient's daughter, Sally, informing her that her mother would requi re hemodialysis given the progressive decline in her kidney function, her worsening respiratory statu s and volume status. The patient's daughters agreed for hemodialysis. Overnight, the patient remain ed confused, agitated and lethargic, remains in mild respiratory distress. The patient was given Robert dol x1. OBJECTIVE: VITAL SIGNS: Blood pressure is 121/58, respirations 24, pulse 89, temperature 98.0. HEENT: Head is normocephalic. NECK: Supple. HEART: Regular rate. LUNGS: Show diminished breath sounds at the base. ABDOMEN: Soft, nontender to palpation. No rebound or guarding. EXTREMITIES: Negative for clubbing, cyanosis, or edema. DERMATOLOGIC: No rashes. MUSCULOSKELETAL: No joint effusions. NEUROLOGIC: No change in exam. MEDICATIONS: Reviewed. LABORATORY DATA: Shows sodium 140, potassium 5.6, BUN 85, creatinine 4.44. White count 7.0, hemoglo bin 10.2, platelet count is 255. ASSESSMENT AND PLAN: 1. Oliguric acute kidney injury with previous baseline creatinine of 1.5 mg/dL. Etiology of acute k idney injury is multifactorial secondary to hemodynamics, cardiorenal syndrome, questionable hepatore nal syndrome. The patient's renal function has continued to decline with minimal urinary output. Th e patient also noted to be markedly volume overloaded with pulmonary congestion, lower extremity sin a. At this point, the patient will need to be initiated on hemodialysis. I spoke with the patient's daughter, Sally as stated above, who has agreed for dialysis. Plan is to have a Noel catheter placement possibly by interventional radiology, following which the patient will be started on hemod ialysis. 2. Hyperkalemia secondary to acute kidney injury. The patient is status post Kayexalate with mild i mproved potassium levels. Anticipate hemodialysis once access is obtained. The patient was dialyzed on low potassium bath. 3. Volume overload secondary to heart failure, acute kidney injury. The patient continues to show p ulmonary congestion. The patient has minimal urinary output despite diuretic therapy. We will antic ipate hemodialysis and ultrafiltration. 4. Acid base disorder. The patient has a metabolic acidosis and respiratory acidosis. At this poin t, will continue to monitor. Anticipate hemodialysis. The patient will be dialyzed once access is o btained on a high bicarbonate bath. 5. Mineral bone disorder, monitor calcium and phosphorus levels. 6. Acute respiratory failure. Etiology is secondary to congestive heart failure, chronic obstructiv e pulmonary disease exacerbation. The patient's chest x-ray continues to show volume overload. The patient's chest x-ray continues to show pulmonary congestion. Plan for hemodialysis and ultrafiltrat ion. Continue current medical management. 7. Cellulitis. Continue antibiotic therapy. 8. afib. Continue medical management. 9. Diabetes. Continue current insulin regimen. 10. Obesity. Continue dietary modification. 11. Severe aortic stenosis. Continue to monitor. Dictated By: JOCELINE MCCALLUM DO NR/NTS Conf#: [id number] DID#: [id number] CC: JABIER SEBASTIAN MD;*EndCC*
[2018-11-23] MEDS ORDERED: METOLAZONE 5 MG TAB PO ONE (09:30)
[2018-11-23] MEDS ORDERED: FUROSEMIDE 40 MG INJ IV ONE (09:30)
[2018-11-23] MEDS ORDERED: HEPARIN 1000 UNITS/ML 10 ML INJ ONE (10:18)
[2018-11-23] MEDS ORDERED: NA BICARBONATE 8.4% 50 ML SYG IV STA (10:56)
[2018-11-23] MEDS ORDERED: NA BICARBONATE 8.4% 50 ML SYG ONE (10:59)
--- NOTE | 2018-11-23 10:59 | CONS ---
Assessment/Plan Assessment/Plan Assessment/Plan (Daily) Chest x-ray showing cardiomegaly with CHF. ABG showing metabolic acidosis. Assessment recommendations; 1. Patient admitted with pneumonia and CHF exacerbation now developing acute renal insufficiency with metabolic acidosis. 2. Acute encephalopathy, which is metabolic in etiology. 3. Prior multiple admissions to the hospital for various reasons. 4. Sacral wound, growing multiple organisms. Patient currently on appropriate antimicrobial regimen. Administer sodium bicarbonate. Patient to undergo hemodialysis shortly. Meanwhile I would recommend holding further Lasix dosing. Continue current antimicrobial regimen as well. Obtain follow-up chest x-ray 24 hours. Continue supplemental oxygen. Consultation Date/Type/Reason Admit Date/Time Nov 16, 2018 at 17:17 Initial Consult Date Type of Consult Pulmonary/critical care Patient's condition has taken a turn for the worse with altered mental status. Patient now has been transferred to ICU. Hemodialysis will be started shortly. Patient appears confused. But is hemodynamically stable. General exam; elderly woman, awake, agitated off and on. Reason for Consultation HEENT exam; supple neck, positive JVD. No lymphadenopathy. Midline trachea. No thyromegaly. Patient is edentulous. Pupils are small bilaterally. Chest exam; diminished breath sounds bilaterally. S1-S2 audible, no murmurs. Regular rhythm. Abdomen exam; soft, protuberant. Nontender. Bowel sounds audible. Extremity exam; no peripheral edema. HAND WELT BUTTER exam; patient is awake follows simple commands moves all 4 extremities. Date/Time of Note DATE: 11/23/18 TIME: 10:56 Exam/Review of Systems Exam Vitals Vital Signs Date Temp Pulse Resp B/P (MAP) Pulse Ox O2 O2 Flow FiO2 Time Delivery Rate 11/23/18 102 10:39 11/23/18 19 173/87 BIPAP 10:11 (115) 11/23/18 94 08:59 11/23/18 35 07:30 11/23/18 97.3 07:30 11/23/18 3.0 04:55 Intake and Output 11/22/18 11/22/18 11/23/18 1515:00 23:00 07:00 IntakeIntake Total 450 ml 300 ml OutputOutput Total 200 ml 250 ml BalanceBalance 250 ml 50 ml Results Result Diagram: 11/23/18 0552 11/23/18 0552 Results 24hrs Laboratory Tests Test 11/22/18 12:05 11/22/18 14:13 11/22/18 17:22 11/22/18 20:38 Bedside Glucose 184 186 180 Sodium Level 137 Potassium Level 6.0 H Chloride Level 103 Carbon Dioxide 19 L Level Anion Gap 15 H Blood Urea 78 H Nitrogen Creatinine 4.17 H Est Glomerular Filtrat Rate mL/min Glucose Level 182 Calcium Level 9.1 Test 11/23/18 03:52 11/23/18 05:52 11/23/18 08:17 11/23/18 09:00 Blood Gas Blood arterial Blood arterial Specimen Source Arterial Blood 11/23/2018 4:20:20 11/23/2018 8:20:28 Date Drawn AM AM Arterial Blood 7.208 *L 7.247 *L pH (Temp corrected) Arterial Blood 49.5 H 45.4 H pCO2 (Temp correct) Arterial Blood 86.2 96.4 H pO2 (Temp corrected) Arterial Blood 19.3 L 19.3 L HCO3 Arterial Blood -8.5 L -7.6 L Base Excess Arterial Blood 94.6 L 96.4 Oxygen Saturatio n John Test ACCEPTAB ACCEPTAB Arterial Blood Right Radial Right Radial Gas Puncture Site Arterial 0.1 0.3 Blood Carboxyhem oglobin Arterial Blood 0.3 0.3 Methemoglobin Blood Gas A-a O2 69.5 H 100.4 H Differential Oxyhemoglobin 94.2 95.8 Percent Blood Gas 37.0 37.0 Temperature Blood Gas Actual 16 20 Respiration Rate Blood Gas NASAL CANNULA MASK - BIPAP Modality FiO2 30.0 35.0 Blood Gas Sofya GONCALVES RN, RN Critical Value Read Back Blood Gas [facility] Notified Whom Blood Gas 11/23/2018 4:32:42 11/23/2018 8:30:45 Notified Time AM AM White Blood 7.0 # Count Red Blood Count 4.61 Hemoglobin 10.2 L Hematocrit 33.9 L Mean Corpuscular 73.5 L Volume Mean Corpuscular 22.1 L Hemoglobin Mean Corpuscular 30.1 L Hemoglobin Lu nt Red Cell 19.9 H Distribution Width Platelet Count 255 Mean Platelet 10.4 Volume Immature 0.600 H Granulocytes % Neutrophils % 92.6 H Lymphocytes % 2.4 L Monocytes % 4.3 Eosinophils % 0.0 Basophils % 0.1 Nucleated Red 1.0 H Blood Cells % Immature 0.040 H Granulocytes # Neutrophils # 6.5 Lymphocytes # 0.2 L Monocytes # 0.3 Eosinophils # 0.0 Basophils # 0.0 Nucleated Red 0.1 H Blood Cells # Sodium Level 140 Potassium Level 5.6 H Chloride Level 104 Carbon Dioxide 19 L Level Anion Gap 17 H Blood Urea 85 H Nitrogen Creatinine 4.44 H Est Glomerular Filtrat Rate mL/min Glucose Level 91 # Calcium Level 9.0 Bedside Glucose 92 Blood Gas 18.0 Respiration Rate Blood Gas 10 Pressure Support Blood Gas 03/02 IPAP/EPAP Ratio Test 11/23/18 09:46 Prothrombin Time Pending Prothrombin Time 2.0 Ratio INR 2.26 International Normalized Ratio Activated 38.4 H Partial Thrombop last Time Medications Medication Current Medications IV Flush (NS 3 ml) 3 ml PER PROTOCOL IV ; Start 11/16/18 at 19:30 Ondansetron HCl (Zofran Inj) 4 mg Q6H PRN IV NAUSEA/VOMITING; Start 11/16/18 at 19:30 Acetaminophen (Tylenol Tab) 650 mg Q6H PRN PO .PAIN 1-3 OR TEMP; Start 11/16/18 at 19:30 Acetaminophen/ Hydrocodone Bitart ([place] (5/325)) 1 tab Q6H PRN PO .MOD PAIN 4- 6 Last administered on 11/20/18 17:10; Admin Dose 1 TAB; Start 11/16/18 at 19:30 Morphine Sulfate (morphine) 2 mg Q4H PRN IV .SEVERE PAIN 7-10 Last administered on 11/18/18at 00:13; Admin Dose 2 MG; Start 11/16/18 at 19:30 Docusate Sodium (Colace) 100 mg Q12H PRN PO .CONSTIPATION; Start 11/16/18 at 19:30 Zolpidem Tartrate (Ambien) 5 mg QHS PRN PO .INSOMNIA Last administered on 11/22/18 23:20; Admin Dose 5 MG; Start 11/16/18 at 19:30 Apixaban (Eliquis) 2.5 mg BID PO Last administered on 11/22/18 20:36; Admin Dose 2.5 MG; Start 11/16/18 at 21:00 Aspirin (Aspirin) 81 mg DAILY PO Last administered on 11/22/18 08:10; Admin Dose 81 MG; Start 11/17/18 at 09:00 Clotrimazole (Lotrimin Cr) 1 applic BID TOP Last administered on 11/22/18 20:41; Admin Dose 1 APPLIC; Start 11/16/18 at 21:00 Digoxin (Digoxin) 0.125 mg DAILY@13 PO Last administered on 11/22/18 12:10; Admin Dose 0.125 MG; Start 11/17/18 at 13:00 Diltiazem HCl (Cardizem Cd) 120 mg BID PO Last administered on 11/21/18 08:07; Admin Dose 120 MG; Start 11/16/18 at 21:00; Status Hold Hydralazine HCl (Apresoline) 50 mg Q8 PO Last administered on 11/22/18 22:03; Admin Dose 50 MG; Start 11/16/18 at 22:00 Tiotropium [place] (Spiriva) 1 inh DAILY INH Last administered on 11/22/18 08:09; Admin Dose 1 INH; Start 11/17/18 at 09:00 Diagnostic Test (Pha) (Accu-Chek) 1 ea 02 XX Last administered on 11/22/18 02:38; Admin Dose 1 EA; Start 11/17/18 at 02:00 Insulin Aspart (Novolog Insulin Pen) NOVOLOG *MILD* ALGORITHM WITH MEALS BEDTIME SC Last administered on 11/22/18 17:46; Admin Dose 2 UNIT; Start 11/16/18 at 21:00 Furosemide (Lasix) 40 mg BID DIURETICS IV Last administered on 11/23/18 05:26; Admin Dose 40 MG; Start 11/17/18 at 06:00 Pantoprazole (Protonix Tab) 40 mg DAILY@06 PO Last administered on 11/22/18 05:26; Admin Dose 40 MG; Start 11/17/18 at 06:00 Psyllium Hydrophilic Mucilloid (Metamucil) 1 pkt DAILY PO Last administered on 11/22/18 08:09; Admin Dose 1 PKT; Start 11/17/18 at 09:00 Fluticasone/ Vilanterol (Breo Ellipta 100-25 Mcg Inh) 1 inh DAILY INH Last adm inistered on 11/22/18 08:09; Admin Dose 1 INH; Start 11/17/18 at 12:00 Albuterol/ Ipratropium (Duoneb) 3 ml Q4H RESP THERAPY HHN Last administered on 11/23/18 04:55; Admin Dose 3 ML; Start 11/18/18 at 13:00 Linezolid (Zyvox) 600 mg BID PO Last administered on 11/22/18 20:36; Admin Dose 600 MG; Start 11/18/18 at 21:00 Cefepime HCl 50 ml @ 100 mls/hr Q24H IVPB Last administered on 11/22/18 20:36; Admin Dose 100 MLS/HR; Start 11/20/18 at 21:00 Fluconazole (Diflucan) 100 mg DAILY PO Last administered on 11/22/18 08:10; Admin Dose 100 MG; Start 11/21/18 at 09:00 Insulin Aspart (Novolog Insulin Pen) 7 unit WITH MEALS SC Last administered on 11/22/18 17:46; Admin Dose 7 UNIT; Start 11/21/18 at 17:55 Insulin Glargine (Lantus) 22 units DAILY@2000 SC Last administered on 11/22/18 20:49; Admin Dose 22 UNITS; Start 11/21/18 at 20:00 Methylprednisolone Sodium Succinate (Solu-Medrol) 60 mg Q8 IV Last administered on 11/23/18 05:26; Admin Dose 60 MG; Start 11/23/18 at 06:00 ZACH HEALY 4, 2019 10:59
[2018-11-23] MEDS: CLOTRIMAZOLE 1% 30 GM CR TOP SCH ×2 (11:40→21:00)
--- NOTE | 2018-11-23 11:55 | CONS ---
Assessment/Plan Assessment/Plan Hospital Course (Demo Recall) Patient was transferred to ICU secondary to respiratory distress, she is tachypneic, in no distress, afebrile WBC 7 H&H 10.2 and 33.9 platelets 255 neutrophils 92.6 BUN 85 creatinine 4.44 Microbiology: Blood culture + Staph 1 out of 2 sets, urine culture + yeast. Left lower extremity wound culture growing Enterobacter cloaca, gram-negative rods, staph species Chest x-ray this morning revealed CHF bilateral pleural effusions left greater than right and diffuse interstitial edema Indwelling: [place] Antimicrobials: Zyvox cefepime, Diflucan Physical examination: Well-developed morbidly obese -[place] woman who is tachypneic, in mild distress. Head atraumatic normocephalic sclera nonicteric. Neck is supple. Chest rise symmetrical breath sounds with diffuse crackles and expiratory wheezes. Heart: S1-S2.. Abdomen obese soft, bowel sounds present. Extremities: Bilateral lower extremities edema erythema and multiple wounds Assessment: 1. Acute hypoxemic respiratory failure secondary to pulmonary edema and CHF exacerbation, poss PNA 2. Sepsis, present on admission 3. 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 Urinary tract infection 5. Staph bacteremia consistent with contaminant 6. Morbid obesity 7. Atrial fibrillation 8. Diabetes 9. Acute kidney failure Plan: Patient with ongoing tachypnea and worsening renal failure, plan for hem odialysis, pending Noel catheter placement, continue antibiotics, local wound care, f/u pulmonary/renal rec-s [facility] staff Consultation Date/Type/Reason Admit Date/Time Nov 16, 2018 at 17:17 Initial Consult Date Type of Consult id Date/Time of Note DATE: 11/23/18 TIME: 11:52 Exam/Review of Systems Exam Vitals Vital Signs Date Temp Pulse Resp B/P (MAP) Pulse Ox O2 O2 Flow FiO2 Time Delivery Rate 11/23/18 102 10:39 11/23/18 19 173/87 BIPAP 10:11 (115) 11/23/18 94 08:59 11/23/18 35 07:30 11/23/18 97.3 07:30 11/23/18 3.0 04:55 Intake and Output 11/22/18 11/22/18 11/23/18 1414:59 22:59 06:59 IntakeIntake Total 450 ml 300 ml OutputOutput Total 200 ml 250 ml BalanceBalance 250 ml 50 ml Results Result Diagram: 11/23/18 0552 11/23/18 0552 Results 24hrs Laboratory Tests Test 11/22/18 12:05 11/22/18 14:13 11/22/18 17:22 11/22/18 20:38 Bedside Glucose 184 186 180 Sodium Level 137 Potassium Level 6.0 H Chloride Level 103 Carbon Dioxide 19 L Level Anion Gap 15 H Blood Urea 78 H Nitrogen Creatinine 4.17 H Est Glomerular Filtrat Rate mL/min Glucose Level 182 Calcium Level 9.1 Test 11/23/18 03:52 11/23/18 05:52 11/23/18 08:17 11/23/18 09:00 Blood Gas Blood arterial Blood arterial Specimen Source Arterial Blood 11/23/2018 4:20:20 11/23/2018 8:20:28 Date Drawn AM AM Arterial Blood 7.208 *L 7.247 *L pH (Temp corrected) Arterial Blood 49.5 H 45.4 H pCO2 (Temp correct) Arterial Blood 86.2 96.4 H pO2 (Temp corrected) Arterial Blood 19.3 L 19.3 L HCO3 Arterial Blood -8.5 L -7.6 L Base Excess Arterial Blood 94.6 L 96.4 Oxygen Saturatio n John Test ACCEPTAB ACCEPTAB Arterial Blood Right Radial Right Radial Gas Puncture Site Arterial 0.1 0.3 Blood Carboxyhem oglobin Arterial Blood 0.3 0.3 Methemoglobin Blood Gas A-a O2 69.5 H 100.4 H Differential Oxyhemoglobin 94.2 95.8 Percent Blood Gas 37.0 37.0 Temperature Blood Gas Actual 16 20 Respiration Rate Blood Gas NASAL CANNULA MASK - BIPAP Modality FiO2 30.0 35.0 Blood Gas Sofya GONCALVES RN, RN Critical Value Read Back Blood Gas BL TM Notified Whom Blood Gas 11/23/2018 4:32:42 11/23/2018 8:30:45 Notified Time AM AM White Blood 7.0 # Count Red Blood Count 4.61 Hemoglobin 10.2 L Hematocrit 33.9 L Mean Corpuscular 73.5 L Volume Mean Corpuscular 22.1 L Hemoglobin Mean Corpuscular 30.1 L Hemoglobin Lu nt Red Cell 19.9 H Distribution Width Platelet Count 255 Mean Platelet 10.4 Volume Immature 0.600 H Granulocytes % Neutrophils % 92.6 H Lymphocytes % 2.4 L Monocytes % 4.3 Eosinophils % 0.0 Basophils % 0.1 Nucleated Red 1.0 H Blood Cells % Immature 0.040 H Granulocytes # Neutrophils # 6.5 Lymphocytes # 0.2 L Monocytes # 0.3 Eosinophils # 0.0 Basophils # 0.0 Nucleated Red 0.1 H Blood Cells # Sodium Level 140 Potassium Level 5.6 H Chloride Level 104 Carbon Dioxide 19 L Level Anion Gap 17 H Blood Urea 85 H Nitrogen Creatinine 4.44 H Est Glomerular Filtrat Rate mL/min Glucose Level 91 # Calcium Level 9.0 Bedside Glucose 92 Blood Gas 18.0 Respiration Rate Blood Gas 10 Pressure Support Blood Gas 15 IPAP/EPAP Ratio Test 11/23/18 09:46 Prothrombin Time 25.0 #H Prothrombin Time 2.0 Ratio INR 2.26 International Normalized Ratio Activated 38.4 H Partial Thrombop last Time Medications Medication Current Medications IV Flush (NS 3 ml) 3 ml PER PROTOCOL IV ; Start 11/16/18 at 19:30 Ondansetron HCl (Zofran Inj) 4 mg Q6H PRN IV NAUSEA/VOMITING; Start 11/16/18 at 19:30 Acetaminophen (Tylenol Tab) 650 mg Q6H PRN PO .PAIN 1-3 OR TEMP; Start 11/16/18 at 19:30 Acetaminophen/ Hydrocodone Bitart ([place] (5/325)) 1 tab Q6H PRN PO .MOD PAIN 4- 6 Last administered on 11/20/18at 17:10; Admin Dose 1 TAB; Start 11/16/18 at 19:30 Morphine Sulfate (morphine) 2 mg Q4H PRN IV .SEVERE PAIN 7-10 Last administered on 11/18/18at 00:13; Admin Dose 2 MG; Start 11/16/18 at 19:30 Docusate Sodium (Colace) 100 mg Q12H PRN PO .CONSTIPATION; Start 11/16/18 at 19:30 Zolpidem Tartrate (Ambien) 5 mg QHS PRN PO .INSOMNIA Last administered on 11/22/18 23:20; Admin Dose 5 MG; Start 11/16/18 at 19:30 Apixaban (Eliquis) 2.5 mg BID PO Last administered on 11/22/18at 20:36; Admin Dose 2.5 MG; Start 11/16/18 at 21:00 Aspirin (Aspirin) 81 mg DAILY PO Last administered on 11/22/18 08:10; Admin Dose 81 MG; Start 11/17/18 at 09:00 Clotrimazole (Lotrimin Cr) 1 applic BID TOP Last administered on 11/22/18 20:41; Admin Dose 1 APPLIC; Start 11/16/18 at 21:00 Digoxin (Digoxin) 0.125 mg DAILY@13 PO Last administered on 11/22/18 12:10; Admin Dose 0.125 MG; Start 11/17/18 at 13:00 Diltiazem HCl (Cardizem Cd) 120 mg BID PO Last administered on 11/21/18 08:07; Admin Dose 120 MG; Start 11/16/18 at 21:00; Status Hold Hydralazine HCl (Apresoline) 50 mg Q8 PO Last administered on 11/22/18 22:03; Admin Dose 50 MG; Start 11/16/18 at 22:00 Tiotropium [place] (Spiriva) 1 inh DAILY INH Last administered on 11/22/18 08:09; Admin Dose 1 INH; Start 11/17/18 at 09:00 Diagnostic Test (Pha) (Accu-Chek) 1 ea 02 XX Last administered on 11/22/18 02:38; Admin Dose 1 EA; Start 11/17/18 at 02:00 Insulin Aspart (Novolog Insulin Pen) NOVOLOG *MILD* ALGORITHM WITH MEALS BEDTIME SC Last administered on 11/22/18 17:46; Admin Dose 2 UNIT; Start 11/16/18 at 21:00 Pantoprazole (Protonix Tab) 40 mg DAILY@06 PO Last administered on 11/22/18 05:26; Admin Dose 40 MG; Start 11/17/18 at 06:00 Psyllium Hydrophilic Mucilloid (Metamucil) 1 pkt DAILY PO Last administered on 11/22/18 08:09; Admin Dose 1 PKT; Start 11/17/18 at 09:00 Fluticasone/ Vilanterol (Breo Ellipta 100-25 Mcg Inh) 1 inh DAILY INH Last administered on 11/22/18 08:09; Admin Dose 1 INH; Start 11/17/18 at 12:00 Albuterol/ Ipratropium (Duoneb) 3 ml Q4H RESP THERAPY HHN Last administered on 11/23/18 11:10; Admin Dose 3 ML; Start 11/18/18 at 13:00 Linezolid (Zyvox) 600 mg BID PO Last administered on 11/22/18 20:36; Admin Dose 600 MG; Start 11/18/18 at 21:00 Cefepime HCl 50 ml @ 100 mls/hr Q24H IVPB Last administered on 11/22/18 20:36; Admin Dose 100 MLS/HR; Start 11/20/18 at 21:00 Fluconazole (Diflucan) 100 mg DAILY PO Last administered on 11/22/18 08:10; Admin Dose 100 MG; Start 11/21/18 at 09:00 Insulin Aspart (Novolog Insulin Pen) 7 unit WITH MEALS SC Last administered on 11/22/18 17:46; Admin Dose 7 UNIT; Start 11/21/18 at 17:55 Insulin Glargine (Lantus) 22 units DAILY@2000 SC Last administered on 11/22/18 20:49; Admin Dose 22 UNITS; Start 11/21/18 at 20:00 Methylprednisolone Sodium Succinate (Solu-Medrol) 60 mg Q8 IV Last administered on 11/23/18 05:26; Admin Dose 60 MG; Start 11/23/18 at 06:00 ROCHELLE STERLING NP Nov 23, 2018 11:55
[2018-11-23] MEDS ORDERED: LORAZEPAM 2 MG INJ IV ONE ×2 (12:30→23:30)
--- NOTE | 2018-11-23 12:45 | CONS ---
Assessment/Plan Assessment/Plan Hospital Course (Demo Recall) IMP: 1.AF with mild RVR 2.Renal failure 3.hyperkalemia 4.Bradycardia 5.CHF-diastolic acute on chronic EF 50% by echo this admit 6.HTN 7.-mod to severe by echo 08/09 Recc: -Tele -serial ecg's -Continue asa/eliquis as patient is able to take -To be started on HD -Will give IVP PRN BB to use and start standing BB to be given as possible Consultation Date/Type/Reason Admit Date/Time Nov 16, 2018 at 17:17 Initial Consult Date 11/20/18 Type of Consult Cardiology Reason for Consultation AF Requesting Provider: JABIER SEBASTIAN Date/Time of Note DATE: 11/23/18 TIME: 12:37 Exam/Review of Systems Vital Signs Vitals Vital Signs Date Temp Pulse Resp B/P (MAP) Pulse Ox O2 O2 Flow FiO2 Time Delivery Rate 11/23/18 107 23 151/82 100 [place] 12:00 (105) Mask 11/23/18 21 11:15 11/23/18 97.3 11:00 11/23/18 3.0 04:55 Intake and Output 11/22/18 11/22/18 11/23/18 1515:00 23:00 07:00 IntakeIntake Total 450 ml 300 ml OutputOutput Total 200 ml 250 ml BalanceBalance 250 ml 50 ml Exam Exam Review of Systems: CONSTITUTIONAL: No fevers, chills. PULMONARY: No sob CARDIOVASCULAR: No chest pain/palpitations GASTROINTESTINAL: No nausea/vomiting. GENITOURINARY: No hematuria/dysuria. MUSCULOSKELETAL: No myagias/arthalgias. PSYCHIATRIC: The patient denies depression. NEUROLOGIC: No weakness Constitutional: alert Psych: no complaints Head: normocephalic ENMT: mucosa pink and moist Neck: supple, jvd (9 cm water) Respiratory: diminished breath sounds Cardiovascular: irregular rhythm Gastrointestinal: soft, non-tender Musculoskeletal: muscle tone Extremities: edema (none) Neurological: confused Labs Result Diagram: 11/23/18 0552 11/23/18 0552 Results 24hrs Laboratory Tests Test 11/22/18 14:13 11/22/18 17:22 11/22/18 20:38 11/23/18 03:52 Sodium Level 137 Potassium Level 6.0 H Chloride Level 103 Carbon Dioxide 19 L Level Anion Gap 15 H Blood Urea 78 H Nitrogen Creatinine 4.17 H Est Glomerular Filtrat Rate mL/min Glucose Level 182 Calcium Level 9.1 Bedside Glucose 186 180 Blood Gas Blood arterial Specimen Source Arterial Blood 11/23/2018 4:20:20 Date Drawn AM Arterial Blood 7.208 *L pH (Temp corrected) Arterial Blood 49.5 H pCO2 (Temp correct) Arterial Blood 86.2 pO2 (Temp corrected) Arterial Blood 19.3 L HCO3 Arterial Blood -8.5 L Base Excess Arterial Blood 94.6 L Oxygen Saturatio n John Test ACCEPTAB Arterial Blood Right Radial Gas Puncture Site Arterial 0.1 Blood Carboxyhem oglobin Arterial Blood 0.3 Methemoglobin Blood Gas A-a O2 69.5 H Differential Oxyhemoglobin 94.2 Percent Blood Gas 37.0 Temperature Blood Gas Actual 16 Respiration Rate Blood Gas NASAL CANNULA Modality FiO2 30.0 Blood Gas Sofya GONCALVES RN Critical Value Read Back Blood Gas BL Notified Whom Blood Gas 11/23/2018 4:32:42 Notified Time AM Test 11/23/18 05:52 11/23/18 08:17 11/23/18 09:00 11/23/18 09:46 White Blood 7.0 # Count Red Blood Count 4.61 Hemoglobin 10.2 L Hematocrit 33.9 L Mean Corpuscular 73.5 L Volume Mean Corpuscular 22.1 L Hemoglobin Mean Corpuscular 30.1 L Hemoglobin Lu nt Red Cell 19.9 H Distribution Width Platelet Count 255 Mean Platelet 10.4 Volume Immature 0.600 H Granulocytes % Neutrophils % 92.6 H Lymphocytes % 2.4 L Monocytes % 4.3 Eosinophils % 0.0 Basophils % 0.1 Nucleated Red 1.0 H Blood Cells % Immature 0.040 H Granulocytes # Neutrophils # 6.5 Lymphocytes # 0.2 L Monocytes # 0.3 Eosinophils # 0.0 Basophils # 0.0 Nucleated Red 0.1 H Blood Cells # Sodium Level 140 Potassium Level 5.6 H Chloride Level 104 Carbon Dioxide 19 L Level Anion Gap 17 H Blood Urea 85 H Nitrogen Creatinine 4.44 H Est Glomerular Filtrat Rate mL/min Glucose Level 91 # Calcium Level 9.0 Bedside Glucose 92 Blood Gas Blood arterial Specimen Source Arterial Blood 11/23/2018 8:20:28 Date Drawn AM Arterial Blood 7.247 *L pH (Temp corrected) Arterial Blood 45.4 H pCO2 (Temp correct) Arterial Blood 96.4 H pO2 (Temp corrected) Arterial Blood 19.3 L HCO3 Arterial Blood -7.6 L Base Excess Arterial Blood 96.4 Oxygen Saturatio n John Test ACCEPTAB Arterial Blood Right Radial Gas Puncture Site Arterial 0.3 Blood Carboxyhem oglobin Arterial Blood 0.3 Methemoglobin Blood Gas A-a O2 100.4 H Differential Oxyhemoglobin 95.8 Percent Blood Gas 37.0 Temperature Blood Gas 18.0 Respiration Rate Blood Gas Actual 20 Respiration Rate Blood Gas MASK - BIPAP Modality FiO2 35.0 Blood Gas 10 Pressure Support Blood Gas 15/5 IPAP/EPAP Ratio Blood Gas JUSTIN RN Critical Value Read Back Blood Gas TM Notified Whom Blood Gas 11/23/2018 8:30:45 Notified Time AM Prothrombin Time 25.0 #H Prothrombin Time 2.0 Ratio INR 2.26 International Normalized Ratio Activated 38.4 H Partial Thrombop last Time Test 11/23/18 11:51 Bedside Glucose 70 Medications Medications Current Medications IV Flush (NS 3 ml) 3 ml PER PROTOCOL IV ; Start 11/16/18 at 19:30 Ondansetron HCl (Zofran Inj) 4 mg Q6H PRN IV NAUSEA/VOMITING; Start 11/16/18 at 19:30 Acetaminophen (Tylenol Tab) 650 mg Q6H PRN PO .PAIN 1-3 OR TEMP; Start 11/16/18 at 19:30 Acetaminophen/ Hydrocodone Bitart ([place] (5/325)) 1 tab Q6H PRN PO .MOD PAIN 4- 6 Last administered on 11/20/18at 17:10; Admin Dose 1 TAB; Start 11/16/18 at 19:30 Morphine Sulfate (morphine) 2 mg Q4H PRN IV .SEVERE PAIN 7-10 Last administered on 11/18/18at 00:13; Admin Dose 2 MG; Start 11/16/18 at 19:30 Docusate Sodium (Colace) 100 mg Q12H PRN PO .CONSTIPATION; Start 11/16/18 at 19:30 Zolpidem Tartrate (Ambien) 5 mg QHS PRN PO .INSOMNIA Last administered on 11/22/18 23:20; Admin Dose 5 MG; Start 11/16/18 at 19:30 Apixaban (Eliquis) 2.5 mg BID PO Last administered on 11/22/18 20:36; Admin Dose 2.5 MG; Start 11/16/18 at 21:00 Aspirin (Aspirin) 81 mg DAILY PO Last administered on 11/22/18 08:10; Admin Dose 81 MG; Start 11/17/18 at 09:00 Clotrimazole (Lotrimin Cr) 1 applic BID TOP Last administered on 11/22/18 20:41; Admin Dose 1 APPLIC; Start 11/16/18 at 21:00 Digoxin (Digoxin) 0.125 mg DAILY@13 PO Last administered on 11/22/18 12:10; Admin Dose 0.125 MG; Start 11/17/18 at 13:00 Diltiazem HCl (Cardizem Cd) 120 mg BID PO Last administered on 11/21/18 08:07; Admin Dose 120 MG; Start 11/16/18 at 21:00; Status Hold Hydralazine HCl (Apresoline) 50 mg Q8 PO Last administered on 11/22/18 22:03; Admin Dose 50 MG; Start 11/16/18 at 22:00 Tiotropium [place] (Spiriva) 1 inh DAILY INH Last administered on 11/22/18 0 8:09; Admin Dose 1 INH; Start 11/17/18 at 09:00 Diagnostic Test (Pha) (Accu-Chek) 1 ea 02 XX Last administered on 11/22/18 02:38; Admin Dose 1 EA; Start 11/17/18 at 02:00 Insulin Aspart (Novolog Insulin Pen) NOVOLOG *MILD* ALGORITHM WITH MEALS BEDTIME SC Last administered on 11/22/18 17:46; Admin Dose 2 UNIT; Start 11/16/18 at 21:00 Pantoprazole (Protonix Tab) 40 mg DAILY@06 PO Last administered on 11/22/18 05:26; Admin Dose 40 MG; Start 11/17/18 at 06:00 Psyllium Hydrophilic Mucilloid (Metamucil) 1 pkt DAILY PO Last administered on 11/22/18 08:09; Admin Dose 1 PKT; Start 11/17/18 at 09:00 Fluticasone/ Vilanterol (Breo Ellipta 100-25 Mcg Inh) 1 inh DAILY INH Last administered on 11/22/18 08:09; Admin Dose 1 INH; Start 11/17/18 at 12:00 Albuterol/ Ipratropium (Duoneb) 3 ml Q4H RESP THERAPY HHN Last administered on 11/23/18 11:10; Admin Dose 3 ML; Start 11/18/18 at 13:00 Linezolid (Zyvox) 600 mg BID PO Last administered on 11/22/18 20:36; Admin Dose 600 MG; Start 11/18/18 at 21:00 Cefepime HCl 50 ml @ 100 mls/hr Q24H IVPB Last administered on 11/22/18 20:36; Admin Dose 100 MLS/HR; Start 11/20/18 at 21:00 Fluconazole (Diflucan) 100 mg DAILY PO Last administered on 11/22/18 08:10; Admin Dose 100 MG; Start 11/21/18 at 09:00 Insulin Aspart (Novolog Insulin Pen) 7 unit WITH MEALS SC Last administered on 11/22/18 17:46; Admin Dose 7 UNIT; Start 11/21/18 at 17:55 Insulin Glargine (Lantus) 22 units DAILY@2000 SC Last administered on 11/22/18 20:49; Admin Dose 22 UNITS; Start 11/21/18 at 20:00 Methylprednisolone Sodium Succinate (Solu-Medrol) 60 mg Q8 IV Last administered on 11/23/18 05:26; Admin Dose 60 MG; Start 11/23/18 at 06:00 GHASSAN SHERMAN Nov 23, 2018 12:45
[2018-11-23] MEDS: DIGOXIN 0.125 MG TAB PO SCH (13:00)
[2018-11-23] MEDS ORDERED: METOPROLOL 5 MG INJ IV PRN (13:00)
--- NOTE | 2018-11-23 16:48 | PN ---
Date/Time of Note Date/Time of Note DATE: 11/23/18 TIME: 16:46 Assessment/Plan VTE Prophylaxis Risk score (from Ns)>0 risk: 5 SCD applied (from Ns): Yes Pharmacological prophylaxis: heparin Lines/Catheters IV Catheter Type (from Nrsg): ROSALINA W/ PIGTAIL Urinary Cath still in place: Yes Reason Cath still needed: urinary retention Assessment/Plan Hospital Course 83 yo female with , diastolic CHF with acute respiratory failure and volume overload from CHF and BRIE - HD is only option as declining renal function and diuretics ineffective - HD in line with goals of care per daughter - Diuretics of minimal benefit - Continue BIPAP - Continue to address goals of care as poor prognosis regardless Result Diagram: 11/23/18 0552 11/23/18 0552 Results 24hrs Laboratory Tests Test 11/22/18 17:22 11/22/18 20:38 11/23/18 03:52 11/23/18 05:52 Bedside Glucose 186 180 Blood Gas Blood arterial Specimen Source Arterial Blood 11/23/2018 4:20:20 Date Drawn AM Arterial Blood 7.208 *L pH (Temp corrected) Arterial Blood 49.5 H pCO2 (Temp correct) Arterial Blood 86.2 pO2 (Temp corrected) Arterial Blood 19.3 L HCO3 Arterial Blood -8.5 L Base Excess Arterial Blood 94.6 L Oxygen Saturatio n John Test ACCEPTAB Arterial Blood Right Radial Gas Puncture Site Arterial 0.1 Blood Carboxyhem oglobin Arterial Blood 0.3 Methemoglobin Blood Gas A-a O2 69.5 H Differential Oxyhemoglobin 94.2 Percent Blood Gas 37.0 Temperature Blood Gas Actual 16 Respiration Rate Blood Gas NASAL CANNULA Modality FiO2 30.0 Blood Gas Sofya GONCALVES RN Critical Value Read Back Blood Gas BL Notified Whom Blood Gas 11/23/2018 4:32:42 Notified Time AM White Blood 7.0 # Count Red Blood Count 4.61 Hemoglobin 10.2 L Hematocrit 33.9 L Mean Corpuscular 73.5 L Volume Mean Corpuscular 22.1 L Hemoglobin Mean Corpuscular 30.1 L Hemoglobin Lu nt Red Cell 19.9 H Distribution Width Platelet Count 255 Mean Platelet 10.4 Volume Immature 0.600 H Granulocytes % Neutrophils % 92.6 H Lymphocytes % 2.4 L Monocytes % 4.3 Eosinophils % 0.0 Basophils % 0.1 Nucleated Red 1.0 H Blood Cells % Immature 0.040 H Granulocytes # Neutrophils # 6.5 Lymphocytes # 0.2 L Monocytes # 0.3 Eosinophils # 0.0 Basophils # 0.0 Nucleated Red 0.1 H Blood Cells # Sodium Level 140 Potassium Level 5.6 H Chloride Level 104 Carbon Dioxide 19 L Level Anion Gap 17 H Blood Urea 85 H Nitrogen Creatinine 4.44 H Est Glomerular Filtrat Rate mL/min Glucose Level 91 # Calcium Level 9.0 Test 11/23/18 08:17 11/23/18 09:00 11/23/18 09:46 11/23/18 11:51 Bedside Glucose 92 70 Blood Gas Blood arterial Specimen Source Arterial Blood 11/23/2018 8:20:28 Date Drawn AM Arterial Blood 7.247 *L pH (Temp corrected) Arterial Blood 45.4 H pCO2 (Temp correct) Arterial Blood 96.4 H pO2 (Temp corrected) Arterial Blood 19.3 L HCO3 Arterial Blood -7.6 L Base Excess Arterial Blood 96.4 Oxygen Saturatio n John Test ACCEPTAB Arterial Blood Right Radial Gas Puncture Site Arterial 0.3 Blood Carboxyhem oglobin Arterial Blood 0.3 Methemoglobin Blood Gas A-a O2 100.4 H Differential Oxyhemoglobin 95.8 Percent Blood Gas 37.0 Temperature Blood Gas 18.0 Respiration Rate Blood Gas Actual 20 Respiration Rate Blood Gas MASK - BIPAP Modality FiO2 35.0 Blood Gas 10 Pressure Support Blood Gas 15/5 IPAP/EPAP Ratio Blood Gas JUSTIN MELO Critical Value Read Back Blood Gas TM Notified Whom Blood Gas 11/23/2018 8:30:45 Notified Time AM Prothrombin Time 25.0 #H Prothrombin Time 2.0 Ratio INR 2.26 International Normalized Ratio Activated 38.4 H Partial Thrombop last Time Subjective 24 Hr Interval Summary Free Text/Dictation Seen this AM, tachyenpic, hypoxic, on BIPAP Poor mental status Spoke with her daughter who wants dialysis started, wants full code. Told her about poor prognosis and offered pallaitive care but she wants aggressive t reatment still Exam/Review of Systems Exam Vitals Vital Signs Date Temp Pulse Resp B/P (MAP) Pulse Ox O2 O2 Flow FiO2 Time Delivery Rate 11/23/18 87 16 127/69 94 Venturi 15:00 (88) Mask 11/23/18 3.0 14:28 11/23/18 39 14:28 3/4/19 97.3 11:00 Intake and Output 11/22/18 11/22/18 11/23/18 1515:00 23:00 07:00 IntakeIntake Total 450 ml 300 ml OutputOutput Total 200 ml 250 ml BalanceBalance 250 ml 50 ml Exam Lethargic ++ JVD Tachypneic Accessory use Results Results 24hrs Laboratory Tests Test 11/22/18 17:22 11/22/18 20:38 11/23/18 03:52 11/23/18 05:52 Bedside Glucose 186 180 Blood Gas Blood arterial Specimen Source Arterial Blood 11/23/2018 4:20:20 Date Drawn AM Arterial Blood 7.208 *L pH (Temp corrected) Arterial Blood 49.5 H pCO2 (Temp correct) Arterial Blood 86.2 pO2 (Temp corrected) Arterial Blood 19.3 L HCO3 Arterial Blood -8.5 L Base Excess Arterial Blood 94.6 L Oxygen Saturatio n John Test ACCEPTAB Arterial Blood Right Radial Gas Puncture Site Arterial 0.1 Blood Carboxyhem oglobin Arterial Blood 0.3 Methemoglobin Blood Gas A-a O2 69.5 H Differential Oxyhemoglobin 94.2 Percent Blood Gas 37.0 Temperature Blood Gas Actual 16 Respiration Rate Blood Gas NASAL CANNULA Modality FiO2 30.0 Blood Gas Sofya GONCALVES RN Critical Value Read Back Blood Gas BL Notified Whom Blood Gas 11/23/2018 4:32:42 Notified Time AM White Blood 7.0 # Count Red Blood Count 4.61 Hemoglobin 10.2 L Hematocrit 33.9 L Mean Corpuscular 73.5 L Volume Mean Corpuscular 22.1 L Hemoglobin Mean Corpuscular 30.1 L Hemoglobin Lu nt Red Cell 19.9 H Distribution Width Platelet Count 255 Mean Platelet 10.4 Volume Immature 0.600 H Granulocytes % Neutrophils % 92.6 H Lymphocytes % 2.4 L Monocytes % 4.3 Eosinophils % 0.0 Basophils % 0.1 Nucleated Red 1.0 H Blood Cells % Immature 0.040 H Granulocytes # Neutrophils # 6.5 Lymphocytes # 0.2 L Monocytes # 0.3 Eosinophils # 0.0 Basophils # 0.0 Nucleated Red 0.1 H Blood Cells # Sodium Level 140 Potassium Level 5.6 H Chloride Level 104 Carbon Dioxide 19 L Level Anion Gap 17 H Blood Urea 85 H Nitrogen Creatinine 4.44 H Est Glomerular Filtrat Rate mL/min Glucose Level 91 # Calcium Level 9.0 Test 11/23/18 08:17 11/23/18 09:00 11/23/18 09:46 11/23/18 11:51 Bedside Glucose 92 70 Blood Gas Blood arterial Specimen Source Arterial Blood 11/23/2018 8:20:28 Date Drawn AM Arterial Blood 7.247 *L pH (Temp corrected) Arterial Blood 45.4 H pCO2 (Temp correct) Arterial Blood 96.4 H pO2 (Temp corrected) Arterial Blood 19.3 L HCO3 Arterial Blood -7.6 L Base Excess Arterial Blood 96.4 Oxygen Saturatio n John Test ACCEPTAB Arterial Blood Right Radial Gas Puncture Site Arterial 0.3 Blood Carboxyhem oglobin Arterial Blood 0.3 Methemoglobin Blood Gas A-a O2 100.4 H Differential Oxyhemoglobin 95.8 Percent Blood Gas 37.0 Temperature Blood Gas 18.0 Respiration Rate Blood Gas Actual 20 Respiration Rate Blood Gas MASK - BIPAP Modality FiO2 35.0 Blood Gas 10 Pressure Support Blood Gas 15/5 IPAP/EPAP Ratio Blood Gas JUSTIN MELO Critical Value Read Back Blood Gas TM Notified Whom Blood Gas 11/23/2018 8:30:45 Notified Time AM Prothrombin Time 25.0 #H Prothrombin Time 2.0 Ratio INR 2.26 International Normalized Ratio Activated 38.4 H Partial Thrombop last Time Medications Medication Current Medications IV Flush (NS 3 ml) 3 ml PER PROTOCOL IV ; Start 11/16/18 at 19:30 Ondansetron HCl (Zofran Inj) 4 mg Q6H PRN IV NAUSEA/VOMITING; Start 11/16/18 at 19:30 Acetaminophen (Tylenol Tab) 650 mg Q6H PRN PO .PAIN 1-3 OR TEMP; Start 11/16/18 at 19:30 Acetaminophen/ Hydrocodone Bitart (Hamel (5/325)) 1 tab Q6H PRN PO .MOD PAIN 4- 6 Last administered on 11/20/18at 17:10; Admin Dose 1 TAB; Start 11/16/18 at 19:30 Morphine Sulfate (morphine) 2 mg Q4H PRN IV .SEVERE PAIN 7-10 Last administered on 11/18/18at 00:13; Admin Dose 2 MG; Start 11/16/18 at 19:30 Docusate Sodium (Colace) 100 mg Q12H PRN PO .CONSTIPATION; Start 11/16/18 at 19:30 Zolpidem Tartrate (Ambien) 5 mg QHS PRN PO .INSOMNIA Last administered on 11/22/18 23:20; Admin Dose 5 MG; Start 11/16/18 at 19:30 Apixaban (Eliquis) 2.5 mg BID PO Last administered on 11/22/18 20:36; Admin Dose 2.5 MG; Start 11/16/18 at 21:00 Aspirin (Aspirin) 81 mg DAILY PO Last administered on 11/22/18 08:10; Admin Dose 81 MG; Start 11/17/18 at 09:00 Clotrimazole (Lotrimin Cr) 1 applic BID TOP Last administered on 11/22/18 20:41; Admin Dose 1 APPLIC; Start 11/16/18 at 21:00 Digoxin (Digoxin) 0.125 mg DAILY@13 PO Last administered on 11/22/18 12:10; Admin Dose 0.125 MG; Start 11/17/18 at 13:00 Diltiazem HCl (Cardizem Cd) 120 mg BID PO Last administered on 11/21/18 08:07; Admin Dose 120 MG; Start 11/16/18 at 21:00; Status Hold Hydralazine HCl (Apresoline) 50 mg Q8 PO Last administered on 11/22/18 22:03; Admin Dose 50 MG; Start 11/16/18 at 22:00 Tiotropium [place] (Spiriva) 1 inh DAILY INH Last administered on 11/22/18 08:09; Admin Dose 1 INH; Start 11/17/18 at 09:00 Diagnostic Test (Pha) (Accu-Chek) 1 ea 02 XX Last administered on 11/22/18 02:38; Admin Dose 1 EA; Start 11/17/18 at 02:00 Insulin Aspart (Novolog Insulin Pen) NOVOLOG *MILD* ALGORITHM WITH MEALS BEDTIME SC Last administered on 11/22/18 17:46; Admin Dose 2 UNIT; Start 11/16/18 at 21:00 Pantoprazole (Protonix Tab) 40 mg DAILY@06 PO Last administered on 11/22/18 05:26; Admin Dose 40 MG; Start 11/17/18 at 06:00 Psyllium Hydrophilic Mucilloid (Metamucil) 1 pkt DAILY PO Last administered on 11/22/18 08:09; Admin Dose 1 PKT; Start 11/17/18 at 09:00 Fluticasone/ Vilanterol (Breo Ellipta 100-25 Mcg Inh) 1 inh DAILY INH Last administered on 11/22/18 08:09; Admin Dose 1 INH; Start 11/17/18 at 12:00 Albuterol/ Ipratropium (Duoneb) 3 ml Q4H RESP THERAPY HHN Last administered on 11/23/18 13:29; Admin Dose 3 ML; Start 11/18/18 at 13:00 Linezolid (Zyvox) 600 mg BID PO Last administered on 11/22/18 20:36; Admin Dose 600 MG; Start 11/18/18 at 21:00 Cefepime HCl 50 ml @ 100 mls/hr Q24H IVPB Last administered on 11/22/18 20:36; Admin Dose 100 MLS/HR; Start 11/20/18 at 21:00 Fluconazole (Diflucan) 100 mg DAILY PO Last administered on 11/22/18 08:10; Admin Dose 100 MG; Start 11/21/18 at 09:00 Insulin Aspart (Novolog Insulin Pen) 7 unit WITH MEALS SC Last administered on 11/22/18 17:46; Admin Dose 7 UNIT; Start 11/21/18 at 17:55 Insulin Glargine (Lantus) 22 units DAILY@2000 SC Last administered on 11/22/18 20:49; Admin Dose 22 UNITS; Start 11/21/18 at 20:00 Methylprednisolone Sodium Succinate (Solu-Medrol) 60 mg Q8 IV Last administered on 11/23/18 13:05; Admin Dose 60 MG; Start 11/23/18 at 06:00 Metoprolol Tartrate (Lopressor) 5 mg Q4H PRN IV HR>110 Hold SBP<100; Start 11/23/18 at 13:00 Metoprolol Tartrate (Lopressor) 25 mg BID PO ; Start 11/23/18 at 21:00 HARIS GREEN MD Nov 23, 2018 16:48
[2018-11-23] MEDS: INSULIN GLARGINE [LANTus] (100 UNITS/ML) SYG SC SCH (20:00)
[2018-11-23] MEDS ORDERED: METOPROLOL 25 MG TAB PO SCH (21:00)
[2018-11-23] MEDS ORDERED: DEXTROSE 5%-0.45% NACL 1,000 ML IV ONE (22:30)
[2018-11-23] MEDS: CEFEPIME 1GM/50 ML (PMX) 50 ML IVPB SCH (22:54)
[2018-11-24] VITALS (44 sets, daily range): BP systolic 80–135; BP diastolic 44–79; PULSE 86–112; RESP 11–33
[2018-11-24] MEDS: ALBUTEROL/IPRATROPIUM (NEB) 3 ML AMP HHN SCH ×6 (01:12→21:06)
[2018-11-24] MEDS: ACCU-CHEK XX SCH (02:00)
[2018-11-24] MEDS ORDERED: LIDOCAINE 1% (MPF) 5 ML VIAL SC ONE (05:00)
[2018-11-24] MEDS: PANTOPRAZOLE (EC) 40 MG TAB PO SCH (05:29)
[2018-11-24] MEDS: METHYLPREDNISOLONE 125 MG INJ IV SCH (05:37)
--- NOTE | 2018-11-24 06:14 | CONS ---
Assessment/Plan Assessment/Plan Assessment/Plan (Daily) First of all family members have decided to change CODE STATUS to DO NOT RESUSCITATE no cardiopulmonary resuscitation or DC cardioversion temporary trial of intubation only. And to continue with ongoing family conferencing. Family conference was done on November 23, 2018. Patient's daughter who is the primary decision maker and 3 were in attendance also. Recovered all patient's current major medical problems. The fact the patient was active and independent prior to this hospitalization. All patient's medical illness were addressed fact that she had presented to [facility] and pulmonary edema end-stage renal disease currently requiring hemodialysis. History of sepsis syndrome since hospitalizations profound mental status changes fluid and electrolyte abnormalities and congestive heart failure. Currently patient was able to do all of her ADLs and had normal mental status prior to this hospitalization and had a sudden onset of respiratory failure requiring this a dmission to the intensive care unit. The voice for the family was patient's daughter who understood the severity of her mother's medical illness. Her hope is that her mother does not suffer and that she goes to [facility] without a prolonged hospitalization suffering. Separable quality of life did not include sustained artificial life support. Patient's have a strong spiritual background and cultural background medication amongst the family members was very good. Patient next made a prognosis is very poor if she does not significantly change and so far as her congestive heart failure and end-stage renal disease requiring hemodialysis at this time goals of care to continue with current level of care but no cardiopulmonary resuscitation or DC cardioversion and a temporary trial intubation if necessary. But family is not interested in prolonged intubation. Consultation Date/Type/Reason Admit Date/Time Nov 16, 2018 at 17:17 Date/Time of Note DATE: 11/24/18 TIME: 06:09 Past Medical History Home Meds Active Scripts Furosemide* (Furosemide*) 40 Mg Tablet, 40 MG PO DAILY, #30 TAB Prov:DAVID RAUSCH NP 08/09/18 Clotrimazole* (Lotrimin*) 1%-30 Gm Cream..g., 1 APPLIC TOP BID, #1 TUB Please apply to the right lower extremity wound twice daily. Prov:DAVID RAUSCH NP 08/09/18 Insulin Glargine,Hum.rec.anlog (Basaglar Kwikpen U-100) 100 Unit/1 Ml Insuln.p en, 5 UNIT SC DAILY for 30 Days, #1 EA Prov:RAMIRO MORRIS MD 04/05/18 Linagliptin (TRADJENTA) 5 Mg Tablet, 5 MG PO DAILY for 30 Days, #30 TAB Prov:RAIMRO MORRIS MD 04/05/18 Insulin Aspart* (Novolog Insulin Pen*) 100 Unit/Ml Soln, 10 UNIT SC WITH LUNCH for 30 Days, #1 EA Prov:RAMIRO MORRIS MD 04/05/18 Insulin Aspart* (Novolog Insulin Pen*) 100 Unit/Ml Soln, 10 UNIT SC WITH DINNER for 30 Days, #1 EA Prov:RAMIRO MORRIS MD 04/05/18 Insulin Aspart* (Novolog Insulin Pen*) 100 Unit/Ml Soln, 6 UNIT SC WITH BREAKFAS T for 30 Days, #1 EA Prov:RAMIRO MORRIS MD 04/05/18 Fluticasone-Vilanterol (Breo Ellipta Inhaler) 100-25 Mcg/Actuation Aer.pow.ba, 1 INH INH DAILY for 30 Days, #1 EA Prov:RAMIRO MORRIS MD 04/05/18 Aspirin (Aspirin) 81 Mg Chew, 81 MG PO DAILY for 30 Days, #30 TAB Prov:RAMIRO MORRIS MD 04/05/18 Metoprolol Tartrate* (Lopressor*) 25 Mg Tab, 75 MG PO BID for 30 Days, #60 TAB Prov:RAMIRO MORRIS MD 04/05/18 Hydralazine Hcl* (Apresoline*) 50 Mg Tab, 50 MG PO Q8 for 30 Days, #90 TAB Prov:RAMIRO MORRIS MD 04/05/18 Diltiazem Hcl* (Cardizem CD*) 120 Mg Cap.sr.24h, 120 MG PO BID for 30 Days, #60 TAB Prov:RAMIRO MORRIS MD 04/05/18 Apixaban* (Eliquis*) 5 Mg Tablet, 2.5 MG PO BID for 30 Days, #60 TAB Prov:RAMIRO MORRIS MD 04/05/18 Tiotropium [place]* (Spiriva*) 18 Mcg Cap.w.dev, 1 INH INH DAILY for 30 Days, #30 CAP Prov:RAMIRO MORRIS MD 04/05/18 Psyllium Husk (Metamucil) 0.52 Gm Capsule, 0.52 GM PO DAILY for 30 Days, #30 CAP Prov:RAMIRO MORRIS MD 04/19/17 Digoxin* (Digitek*) 0.125 Mg Tab, 0.125 MG PO DAILY@13, #30 3 Refills Prov:DALLAS PICKETT 03/22/15 Reported Medications Albuterol Sulfate* (Proair HFA*) 8.5 Gm Hfa.aer.ad, 2 PUFF INH Q6H PRN for WHEEZING AND SOB, INH 03/16/15 Omeprazole* (Omeprazole*) 20 Mg Capsule.dr, 20 MG PO DAILY, CAP 03/16/15 Medications Current Medications IV Flush (NS 3 ml) 3 ml PER PROTOCOL IV ; Start 11/16/18 at 19:30 Ondansetron HCl (Zofran Inj) 4 mg Q6H PRN IV NAUSEA/VOMITING; Start 11/16/18 at 19:30 Acetaminophen (Tylenol Tab) 650 mg Q6H PRN PO .PAIN 1-3 OR TEMP; Start 11/16/18 at 19:30 Acetaminophen/ Hydrocodone Bitart ([place] (5/325)) 1 tab Q6H PRN PO .MOD PAIN 4- 6 Last administered on 11/20/18at 17:10; Admin Dose 1 TAB; Start 11/16/18 at 19:30 Morphine Sulfate (morphine) 2 mg Q4H PRN IV .SEVERE PAIN 7-10 Last administered on 11/18/18at 00:13; Admin Dose 2 MG; Start 11/16/18 at 19:30 Docusate Sodium (Colace) 100 mg Q12H PRN PO .CONSTIPATION; Start 11/16/18 at 19:30 Zolpidem Tartrate (Ambien) 5 mg QHS PRN PO .INSOMNIA Last administered on 11/22/18 23:20; Admin Dose 5 MG; Start 11/16/18 at 19:30 Apixaban (Eliquis) 2.5 mg BID PO Last administered on 11/22/18at 20:36; Admin Dose 2.5 MG; Start 11/16/18 at 21:00 Aspirin (Aspirin) 81 mg DAILY PO Last administered on 11/22/18 08:10; Admin Dose 81 MG; Start 11/17/18 at 09:00 Clotrimazole (Lotrimin Cr) 1 applic BID TOP Last administered on 11/22/18 20:41; Admin Dose 1 APPLIC; Start 11/16/18 at 21:00 Digoxin (Digoxin) 0.125 mg DAILY@13 PO Last administered on 11/22/18 12:10; Admin Dose 0.125 MG; Start 11/17/18 at 13:00 Diltiazem HCl (Cardizem Cd) 120 mg BID PO Last administered on 11/21/18 08:07; Admin Dose 120 MG; Start 11/16/18 at 21:00; Status Hold Hydralazine HCl (Apresoline) 50 mg Q8 PO Last administered on 11/22/18 22:03; Admin Dose 50 MG; Start 11/16/18 at 22:00 Tiotropium [place] (Spiriva) 1 inh DAILY INH Last administered on 11/22/18 08:09; Admin Dose 1 INH; Start 11/17/18 at 09:00 Diagnostic Test (Pha) (Accu-Chek) 1 ea 02 XX Last administered on 11/24/18 02:00; Admin Dose 1 EA; Start 11/17/18 at 02:00 Insulin Aspart (Novolog Insulin Pen) NOVOLOG *MILD* ALGORITHM WITH MEALS BEDTIME SC Last administered on 11/22/18 17:46; Admin Dose 2 UNIT; Start 11/16/18 at 21:00 Pantoprazole (Protonix Tab) 40 mg DAILY@06 PO Last administered on 11/22/18 05:26; Admin Dose 40 MG; Start 11/17/18 at 06:00 Psyllium Hydrophilic Mucilloid (Metamucil) 1 pkt DAILY PO Last administered on 11/22/18 08:09; Admin Dose 1 PKT; Start 11/17/18 at 09:00 Fluticasone/ Vilanterol (Breo Ellipta 100-25 Mcg Inh) 1 inh DAILY INH Last administered on 11/22/18 08:09; Admin Dose 1 INH; Start 11/17/18 at 12:00 Albuterol/ Ipratropium (Duoneb) 3 ml Q4H RESP THERAPY HHN Last administered on 11/24/18 04:33; Admin Dose 3 ML; Start 11/18/18 at 13:00 Linezolid (Zyvox) 600 mg BID PO Last administered on 11/22/18 20:36; Admin Dose 600 MG; Start 11/18/18 at 21:00 Cefepime HCl 50 ml @ 100 mls/hr Q24H IVPB Last administered on 11/23/18 22:54; Admin Dose 100 MLS/HR; Start 11/20/18 at 21:00 Fluconazole (Diflucan) 100 mg DAILY PO Last administered on 11/22/18 08:10; Admin Dose 100 MG; Start 11/21/18 at 09:00 Insulin Aspart (Novolog Insulin Pen) 7 unit WITH MEALS SC Last administered on 11/22/18 17:46; Admin Dose 7 UNIT; Start 11/21/18 at 17:55 Insulin Glargine (Lantus) 22 units DAILY@2000 SC Last administered on 11/22/18 20:49; Admin Dose 22 UNITS; Start 11/21/18 at 20:00 Methylprednisolone Sodium Succinate (Solu-Medrol) 60 mg Q8 IV Last administered on 11/24/18 05:37; Admin Dose 60 MG; Start 11/23/18 at 06:00 Metoprolol Tartrate (Lopressor) 5 mg Q4H PRN IV HR>110 Hold SBP<100; Start 11/23/18 at 13:00 Metoprolol Tartrate (Lopressor) 25 mg BID PO ; Start 11/23/18 at 21:00 Dextrose/Sodium Chloride 1,000 ml @ 50 mls/hr Q20H ONCE IV Last administered on 11/23/18 22:54; Admin Dose 50 MLS/HR; Start 11/23/18 at 22:30; Stop 11/24/18 at 18:29 Allergies: Coded Allergies: No Known Allergy (Unverified , 09/09/18) Past Surgical History Past Surgical Hx: other Social History Alcohol Use: rarely Smoking Status: Former smoker Drug Use: none Exam/Review of Systems Exam Vitals Vital Signs Date Temp Pulse Resp B/P (MAP) Pulse Ox O2 O2 Flow FiO2 Time Delivery Rate 11/24/18 92 11 110/53 100 BIPAP 05:00 (72) 11/24/18 35 04:37 11/23/18 97.4 20:00 11/23/18 3.0 14:28 Intake and Output 11/23/18 11/23/18 11/24/18 1515:00 23:00 07:00 IntakeIntake Total 0 ml 300 ml OutputOutput Total 435 ml 2400 ml BalanceBalance -435 ml -2400 ml 300 ml Constitutional: distress, frail Psych: anxiety ENMT: nl external ears & nose, nl lips & teeth, nl nasal mucosa & septum; No mucosa pink and moist, No intubated, No tympanic membranes, No other Respiratory: congested cough, crackles/rales, diminished breath sounds, labored breathing Cardiovascular: regular rate and rhythm, nl pulses Neurological: confused, lethargic Results Result Diagram: 11/23/18 0552 11/23/18 0552 Results 24hrs Laboratory Tests Test 11/23/18 08:17 11/23/18 09:00 11/23/18 09:46 11/23/18 11:51 Bedside Glucose 92 70 Blood Gas Blood arterial Specimen Source Arterial Blood 11/23/2018 8:20:28 Date Drawn AM Arterial Blood 7.247 *L pH (Temp corrected) Arterial Blood 45.4 H pCO2 (Temp correct) Arterial Blood 96.4 H pO2 (Temp corrected) Arterial Blood 19.3 L HCO3 Arterial Blood -7.6 L Base Excess Arterial Blood 96.4 Oxygen Saturatio n John Test ACCEPTAB Arterial Blood Right Radial Gas Puncture Site Arterial 0.3 Blood Carboxyhem oglobin Arterial Blood 0.3 Methemoglobin Blood Gas A-a O2 100.4 H Differential Oxyhemoglobin 95.8 Percent Blood Gas 37.0 Temperature Blood Gas 18.0 Respiration Rate Blood Gas Actual 20 Respiration Rate Blood Gas MASK - BIPAP Modality FiO2 35.0 Blood Gas 10 Pressure Support Blood Gas 15/5 IPAP/EPAP Ratio Blood Gas JUSTIN MELO Critical Value Read Back Blood Gas TM Notified Whom Blood Gas 11/23/2018 8:30:45 Notified Time AM Prothrombin Time 25.0 #H Prothrombin Time 2.0 Ratio INR 2.26 International Normalized Ratio Activated 38.4 H Partial Thrombop last Time Test 11/23/18 16:48 11/23/18 18:12 11/23/18 20:04 11/23/18 21:00 Bedside Glucose 91 77 Blood Gas Blood arterial Blood arterial Specimen Source Arterial Blood 11/23/2018 7:25:31 11/23/2018 9:32:58 Date Drawn PM PM Arterial Blood 7.053 *L 7.255 *L pH (Temp corrected) Arterial Blood 75.8 H 52.8 H pCO2 (Temp correct) Arterial Blood 101.2 H 87.3 pO2 (Temp corrected) Arterial Blood 20.6 L 22.9 HCO3 Arterial Blood -10.5 L -4.5 L Base Excess Arterial Blood 95.3 96.2 Oxygen Saturatio n John Test ACCEPTAB ACCEPTAB Arterial Blood Right Radial Right Radial Gas Puncture Site Arterial 0.4 0.5 Blood Carboxyhem oglobin Arterial Blood 0.4 0.4 Methemoglobin Blood Gas A-a O2 60.2 H 100.9 H Differential Oxyhemoglobin 94.5 95.3 Percent Blood Gas 37.0 37.0 Temperature Blood Gas 18.0 24.0 Respiration Rate Blood Gas Actual 18 24 Respiration Rate Blood Gas BIPAP - S/T MASK MASK - BIPAP Modality FiO2 35.0 35.0 Blood Gas 10 Pressure Support Blood Gas C. [place] KAMERON Chavira CADDIE SUPERVISOR Critical Value Read Back Blood Gas BRIANNA Pelayo CADDIE SUPERVISOR Notified Whom Blood Gas 11/23/2018 7:46:22 11/23/2018 9:38:39 Notified Time PM PM Blood Gas 08/02 IPAP/EPAP Ratio Test 11/24/18 03:14 Bedside Glucose 111 Medications Medication Current Medications IV Flush (NS 3 ml) 3 ml PER PROTOCOL IV ; Start 11/16/18 at 19:30 Ondansetron HCl (Zofran Inj) 4 mg Q6H PRN IV NAUSEA/VOMITING; Start 11/16/18 at 19:30 Acetaminophen (Tylenol Tab) 650 mg Q6H PRN PO .PAIN 1-3 OR TEMP; Start 11/16/18 at 19:30 Acetaminophen/ Hydrocodone Bitart ([place] (5/325)) 1 tab Q6H PRN PO .MOD PAIN 4- 6 Last administered on 11/20/18at 17:10; Admin Dose 1 TAB; Start 11/16/18 at 19:30 Morphine Sulfate (morphine) 2 mg Q4H PRN IV .SEVERE PAIN 7-10 Last administered on 11/18/18at 00:13; Admin Dose 2 MG; Start 11/16/18 at 19:30 Docusate Sodium (Colace) 100 mg Q12H PRN PO .CONSTIPATION; Start 11/16/18 at 19:30 Zolpidem Tartrate (Ambien) 5 mg QHS PRN PO .INSOMNIA Last administered on 11/22 23:20; Admin Dose 5 MG; Start 11/16/18 at 19:30 Apixaban (Eliquis) 2.5 mg BID PO Last administered on 11/22/18 20:36; Admin Dose 2.5 MG; Start 11/16/18 at 21:00 Aspirin (Aspirin) 81 mg DAILY PO Last administered on 11/22/18 08:10; Admin Dose 81 MG; Start 11/17/18 at 09:00 Clotrimazole (Lotrimin Cr) 1 applic BID TOP Last administered on 11/22/18 20:41; Admin Dose 1 APPLIC; Start 11/16/18 at 21:00 Digoxin (Digoxin) 0.125 mg DAILY@13 PO Last administered on 11/22/18 12:10; Admin Dose 0.125 MG; Start 11/17/18 at 13:00 Diltiazem HCl (Cardizem Cd) 120 mg BID PO Last administered on 11/21/18 08:07; Admin Dose 120 MG; Start 11/16/18 at 21:00; Status Hold Hydralazine HCl (Apresoline) 50 mg Q8 PO Last administered on 11/22/18 22:03; Admin Dose 50 MG; Start 11/16/18 at 22:00 Tiotropium [place] (Spiriva) 1 inh DAILY INH Last administered on 11/22/18 08:09; Admin Dose 1 INH; Start 11/17/18 at 09:00 Diagnostic Test (Pha) (Accu-Chek) 1 ea 02 XX Last administered on 11/24/18 02:00; Admin Dose 1 EA; Start 11/17/18 at 02:00 Insulin Aspart (Novolog Insulin Pen) NOVOLOG *MILD* ALGORITHM WITH MEALS BEDTIME SC Last administered on 11/22/18 17:46; Admin Dose 2 UNIT; Start 11/16/18 at 21:00 Pantoprazole (Protonix Tab) 40 mg DAILY@06 PO Last administered on 11/22/18 05:26; Admin Dose 40 MG; Start 11/17/18 at 06:00 Psyllium Hydrophilic Mucilloid (Metamucil) 1 pkt DAILY PO Last administered on 11/22/18 08:09; Admin Dose 1 PKT; Start 11/17/18 at 09:00 Fluticasone/ Vilanterol (Breo Ellipta 100-25 Mcg Inh) 1 inh DAILY INH Last administered on 11/22/18 08:09; Admin Dose 1 INH; Start 11/17/18 at 12:00 Albuterol/ Ipratropium (Duoneb) 3 ml Q4H RESP THERAPY HHN Last administered on 11/24/18 04:33; Admin Dose 3 ML; Start 11/18/18 at 13:00 Linezolid (Zyvox) 600 mg BID PO Last administered on 11/22/18 20:36; Admin Dose 600 MG; Start 11/18/18 at 21:00 Cefepime HCl 50 ml @ 100 mls/hr Q24H IVPB Last administered on 11/23/18 22:54; Admin Dose 100 MLS/HR; Start 11/20/18 at 21:00 Fluconazole (Diflucan) 100 mg DAILY PO Last administered on 11/22/18 08:10; Admin Dose 100 MG; Start 11/21/18 at 09:00 Insulin Aspart (Novolog Insulin Pen) 7 unit WITH MEALS SC Last administered on 11/22/18 17:46; Admin Dose 7 UNIT; Start 11/21/18 at 17:55 Insulin Glargine (Lantus) 22 units DAILY@2000 SC Last administered on 11/22/18 20:49; Admin Dose 22 UNITS; Start 11/21/18 at 20:00 Methylprednisolone Sodium Succinate (Solu-Medrol) 60 mg Q8 IV Last administered on 11/24/18 05:37; Admin Dose 60 MG; Start 11/23/18 at 06:00 Metoprolol Tartrate (Lopressor) 5 mg Q4H PRN IV HR>110 Hold SBP<100; Start 11/23/18 at 13:00 Metoprolol Tartrate (Lopressor) 25 mg BID PO ; Start 11/23/18 at 21:00 Dextrose/Sodium Chloride 1,000 ml @ 50 mls/hr Q20H ONCE IV Last administered on 11/23/18 22:54; Admin Dose 50 MLS/HR; Start 11/23/18 at 22:30; Stop 11/24/18 at 18:29 MINI PAEZ Nov 24, 2018 06:14
[2018-11-24] MEDS: INSULIN ASPART [NOVOLOG] 3 ML PEN SC SCH ×5 (07:35→20:24)
--- NOTE | 2018-11-24 08:00 | CONS ---
Assessment/Plan Assessment/Plan Assessment/Plan (Daily) Patient is currently on BiPAP 20/5 with 35% FiO2. Assessment recommendations; 1. Patient admitted with shortness of breath due to CHF exacerbation with interval development of acute renal failure now requiring hemodialysis. 2 L of fluid was removed yesterday. 2. Metabolic encephalopathy. 3. History of diabetes. 4. Prior history of pulmonary embolism. 5. Sacral wound. Growing multiple organisms. Patient currently on appropriate antimicrobial regimen. 6. History of systemic hypertension. Continue current supportive care. Obtain ABG. Continue BiPAP at current settings. Patient will be dialyzed again today. Further recommendations once ABG is performed. Prognosis is guarded. Consultation Date/Type/Reason Admit Date/Time Nov 16, 2018 at 17:17 Initial Consult Date Type of Consult Pulmonary/critical care Patient's condition has taken a turn for the worse with altered mental status. Patient now has been transferred to ICU. Hemodialysis will be started shortly. Patient appears confused. But is hemodynamically stable. General exam; elderly woman, awake, agitated off and on. Requesting Provider: JABIER SEBASTIAN Date/Time of Note DATE: 11/24/18 TIME: 07:58 24 HR Interval Summary Free Text/Dictation Patient's condition remains tenuous at best. Still exhibiting significant symptoms of encephalopathy. Patient however has remained hemodynamically stable. Requiring BiPAP. General exam; elderly female, on BiPAP. Somewhat responsive. Currently no distress. Exam/Review of Systems Exam Vitals Vital Signs Date Temp Pulse Resp B/P (MAP) Pulse Ox O2 O2 Flow FiO2 Time Delivery Rate 11/24/18 92 21 121/79 100 BIPAP 07:00 (93) 11/24/18 35 04:37 11/23/18 97.4 20:00 11/23/18 3.0 14:28 Intake and Output 11/23/18 11/23/18 11/24/18 1515:00 23:00 07:00 IntakeIntake Total 0 ml 400 ml OutputOutput Total 435 ml 2550 ml BalanceBalance -435 ml -2550 ml 400 ml Exam HEENT exam; supple neck, positive JVD. No lymphadenopathy. Midline trachea. No thyromegaly. Patient is edentulous. On BiPAP. Chest exam; diminished breath sounds bilaterally. S1-S2 audible, no murmurs. Regular rhythm. Abdomen exam; soft, protuberant. Nontender. Bowel sounds audible. Organomegaly difficult to assess. Extremity exam; 3+ generalized anasarca. PEANUT PICKER exam; patient is lethargic. Results Result Diagram: 11/23/18 0552 11/23/18 0552 Results 24hrs Laboratory Tests Test 11/23/18 08:17 11/23/18 09:00 11/23/18 09:46 11/23/18 11:51 Bedside Glucose 92 70 Blood Gas Blood arterial Specimen Source Arterial Blood 11/23/2018 8:20:28 Date Drawn AM Arterial Blood 7.247 *L pH (Temp corrected) Arterial Blood 45.4 H pCO2 (Temp correct) Arterial Blood 96.4 H pO2 (Temp corrected) Arterial Blood 19.3 L HCO3 Arterial Blood -7.6 L Base Excess Arterial Blood 96.4 Oxygen Saturatio n John Test ACCEPTAB Arterial Blood Right Radial Gas Puncture Site Arterial 0.3 Blood Carboxyhem oglobin Arterial Blood 0.3 Methemoglobin Blood Gas A-a O2 100.4 H Differential Oxyhemoglobin 95.8 Percent Blood Gas 37.0 Temperature Blood Gas 18.0 Respiration Rate Blood Gas Actual 20 Respiration Rate Blood Gas MASK - BIPAP Modality FiO2 35.0 Blood Gas 10 Pressure Support Blood Gas 15/5 IPAP/EPAP Ratio Blood Gas JUSTIN MELO Critical Value Read Back Blood Gas TM Notified Whom Blood Gas 11/23/2018 8:30:45 Notified Time AM Prothrombin Time 25.0 #H Prothrombin Time 2.0 Ratio INR 2.26 International Normalized Ratio Activated 38.4 H Partial Thrombop last Time Test 11/23/18 16:48 11/23/18 18:12 11/23/18 20:04 11/23/18 21:00 Bedside Glucose 91 77 Blood Gas Blood arterial Blood arterial Specimen Source Arterial Blood 11/23/2018 7:25:31 11/23/2018 9:32:58 Date Drawn PM PM Arterial Blood 7.053 *L 7.255 *L pH (Temp corrected) Arterial Blood 75.8 H 52.8 H pCO2 (Temp correct) Arterial Blood 101.2 H 87.3 pO2 (Temp corrected) Arterial Blood 20.6 L 22.9 HCO3 Arterial Blood -10.5 L -4.5 L Base Excess Arterial Blood 95.3 96.2 Oxygen Saturatio n John Test ACCEPTAB ACCEPTAB Arterial Blood Right Radial Right Radial Gas Puncture Site Arterial 0.4 0.5 Blood Carboxyhem oglobin Arterial Blood 0.4 0.4 Methemoglobin Blood Gas A-a O2 60.2 H 100.9 H Differential Oxyhemoglobin 94.5 95.3 Percent Blood Gas 37.0 37.0 Temperature Blood Gas 18.0 24.0 Respiration Rate Blood Gas Actual 18 24 Respiration Rate Blood Gas BIPAP - S/T MASK MASK - BIPAP Modality FiO2 35.0 35.0 Blood Gas 10 Pressure Support Blood Gas C. [place] RN Katja Chavira IRRIGATION TEACHER Critical Value Read Back Blood Gas MJ Mariana Gita IRRIGATION TEACHER Notified Whom Blood Gas 11/23/2018 7:46:22 11/23/2018 9:38:39 Notified Time PM PM Blood Gas 08/02 IPAP/EPAP Ratio Test 11/24/18 03:14 Bedside Glucose 111 Medications Medication Current Medications IV Flush (NS 3 ml) 3 ml PER PROTOCOL IV ; Start 11/16/18 at 19:30 Ondansetron HCl (Zofran Inj) 4 mg Q6H PRN IV NAUSEA/VOMITING; Start 11/16/18 at 19:30 Acetaminophen (Tylenol Tab) 650 mg Q6H PRN PO .PAIN 1-3 OR TEMP; Start 11/16/18 at 19:30 Acetaminophen/ Hydrocodone Bitart ([place] (5/325)) 1 tab Q6H PRN PO .MOD PAIN 4- 6 Last administered on 11/20/18 17:10; Admin Dose 1 TAB; Start 11/16/18 at 19:30 Morphine Sulfate (morphine) 2 mg Q4H PRN IV .SEVERE PAIN 7-10 Last administered on 11/18/18at 00:13; Admin Dose 2 MG; Start 11/16/18 at 19:30 Docusate Sodium (Colace) 100 mg Q12H PRN PO .CONSTIPATION; Start 11/16/18 at 19:30 Zolpidem Tartrate (Ambien) 5 mg QHS PRN PO .INSOMNIA Last administered on 23:20; Admin Dose 5 MG; Start 11/16/18 at 19:30 Apixaban (Eliquis) 2.5 mg BID PO Last administered on 11/22/18 20:36; Admin Dose 2.5 MG; Start 11/16/18 at 21:00 Aspirin (Aspirin) 81 mg DAILY PO Last administered on 11/22/18 08:10; Admin Dose 81 MG; Start 11/17/18 at 09:00 Clotrimazole (Lotrimin Cr) 1 applic BID TOP Last administered on 11/22/18 20:41; Admin Dose 1 APPLIC; Start 11/16/18 at 21:00 Digoxin (Digoxin) 0.125 mg DAILY@13 PO Last administered on 11/22/18 12:10; Admin Dose 0.125 MG; Start 11/17/18 at 13:00 Diltiazem HCl (Cardizem Cd) 120 mg BID PO Last administered on 11/21/18 08:07; Admin Dose 120 MG; Start 11/16/18 at 21:00; Status Hold Hydralazine HCl (Apresoline) 50 mg Q8 PO Last administered on 11/22/18 22:03; Admin Dose 50 MG; Start 11/16/18 at 22:00 Tiotropium [place] (Spiriva) 1 inh DAILY INH Last administered on 11/22/18 08:09; Admin Dose 1 INH; Start 11/17/18 at 09:00 Diagnostic Test (Pha) (Accu-Chek) 1 ea 02 XX Last administered on 11/24/18 02:00; Admin Dose 1 EA; Start 11/17/18 at 02:00 Pantoprazole (Protonix Tab) 40 mg DAILY@06 PO Last administered on 11/22/18 05:26; Admin Dose 40 MG; Start 11/17/18 at 06:00 Psyllium Hydrophilic Mucilloid (Metamucil) 1 pkt DAILY PO Last administered on 11/22/18 08:09; Admin Dose 1 PKT; Start 11/17/18 at 09:00 Fluticasone/ Vilanterol (Breo Ellipta 100-25 Mcg Inh) 1 inh DAILY INH Last administered on 11/22/18 08:09; Admin Dose 1 INH; Start 11/17/18 at 12:00 Albuterol/ Ipratropium (Duoneb) 3 ml Q4H RESP THERAPY HHN Last administered on 11/24/18 04:33; Admin Dose 3 ML; Start 11/18/18 at 13:00 Linezolid (Zyvox) 600 mg BID PO Last administered on 11/22/18 20:36; Admin Dose 600 MG; Start 11/18/18 at 21:00 Cefepime HCl 50 ml @ 100 mls/hr Q24H IVPB Last administered on 11/23/18 22:54; Admin Dose 100 MLS/HR; Start 11/20/18 at 21:00 Fluconazole (Diflucan) 100 mg DAILY PO Last administered on 11/22/18 08:10; Admin Dose 100 MG; Start 11/21/18 at 09:00 Insulin Aspart (Novolog Insulin Pen) 7 unit WITH MEALS SC Last administered on 11/22/18 17:46; Admin Dose 7 UNIT; Start 11/21/18 at 17:55 Insulin Glargine (Lantus) 22 units DAILY@2000 SC Last administered on 11/22/18 20:49; Admin Dose 22 UNITS; Start 11/21/18 at 20:00 Methylprednisolone Sodium Succinate (Solu-Medrol) 60 mg Q8 IV Last administered on 11/24/18 05:37; Admin Dose 60 MG; Start 11/23/18 at 06:00 Metoprolol Tartrate (Lopressor) 5 mg Q4H PRN IV HR>110 Hold SBP<100; Start 11/23/18 at 13:00 Metoprolol Tartrate (Lopressor) 25 mg BID PO ; Start 11/23/18 at 21:00 Dextrose/Sodium Chloride 1,000 ml @ 50 mls/hr Q20H ONCE IV Last administered on 11/23/18 22:54; Admin Dose 50 MLS/HR; Start 11/23/18 at 22:30; Stop 11/24/18 at 18:29 Insulin Aspart (Novolog Insulin Pen) NOVOLOG *MILD* ALGORITHM Q4 SC ; Start 11/24/18 at 09:00; Status ZACH MANCIA Nov 24, 2018 08:00
[2018-11-24] MEDS: FLUTICASONE/VILANTEROL 100-25 INH SCH (08:24)
[2018-11-24] MEDS: TIOTROPIUM 18 MCG CAPSULE INHA DEV INH SCH (08:24)
--- NOTE | 2018-11-24 08:39 | CONS ---
Assessment/Plan Assessment/Plan Assessment/Plan (Daily) Reviewed notes from critical care physicians. There is been no significant change in overall clinical status although she appears to be more somnolent and encephalopathic today. She is receiving hemodialysis on broad-spectrum IV antibiotic coverage and aggressive intervention for congestive heart failure including dialysis. This morning I will be speaking to family members once again if necessary my understanding is patient's daughter will be arriving today we will update her current condition, family will need much support. It was very difficult for them to change her CODE STATUS to DNR and not to proceed with cardiopulmonary resuscitation. Consultation Date/Type/Reason Admit Date/Time Nov 16, 2018 at 17:17 Initial Consult Date Requesting Provider: JABIER SEBASTIAN Date/Time of Note DATE: 11/24/18 TIME: 08:37 Exam/Review of Systems Exam Vitals Vital Signs Date Temp Pulse Resp B/P (MAP) Pulse Ox O2 O2 Flow FiO2 Time Delivery Rate 11/24/18 93 100 21 07:56 11/24/18 21 121/79 BIPAP 07:00 (93) 11/23/18 97.4 20:00 11/23/18 3.0 14:28 Intake and Output 11/23/18 11/23/18 11/24/18 1515:00 23:00 07:00 IntakeIntake Total 0 ml 400 ml OutputOutput Total 435 ml 2550 ml BalanceBalance -435 ml -2550 ml 400 ml Results Result Diagram: 11/24/18 0814 11/23/18 0552 Results 24hrs Laboratory Tests Test 11/23/18 09:00 11/23/18 09:46 11/23/18 11:51 11/23/18 16:48 Blood Gas Blood arterial Specimen Source Arterial Blood 11/23/2018 8:20:28 Date Drawn AM Arterial Blood 7.247 *L pH (Temp corrected) Arterial Blood 45.4 H pCO2 (Temp correct) Arterial Blood 96.4 H pO2 (Temp corrected) Arterial Blood 19.3 L HCO3 Arterial Blood -7.6 L Base Excess Arterial Blood 96.4 Oxygen Saturatio n John Test ACCEPTAB Arterial Blood Right Radial Gas Puncture Site Arterial 0.3 Blood Carboxyhem oglobin Arterial Blood 0.3 Methemoglobin Blood Gas A-a O2 100.4 H Differential Oxyhemoglobin 95.8 Percent Blood Gas 37.0 Temperature Blood Gas 18.0 Respiration Rate Blood Gas Actual 20 Respiration Rate Blood Gas MASK - BIPAP Modality FiO2 35.0 Blood Gas 10 Pressure Support Blood Gas 03/02 IPAP/EPAP Ratio Blood Gas JUSTIN MELO Critical Value Read Back Blood Gas TM Notified Whom Blood Gas 11/23/2018 8:30:45 Notified Time AM Prothrombin Time 25.0 #H Prothrombin Time 2.0 Ratio INR 2.26 International Normalized Ratio Activated 38.4 H Partial Thrombop last Time Bedside Glucose 70 91 Test 11/23/18 18:12 11/23/18 20:04 11/23/18 21:00 11/24/18 03:14 Blood Gas Blood arterial Blood arterial Specimen Source Arterial Blood 11/23/2018 7:25:31 11/23/2018 9:32:58 Date Drawn PM PM Arterial Blood 7.053 *L 7.255 *L pH (Temp corrected) Arterial Blood 75.8 H 52.8 H pCO2 (Temp correct) Arterial Blood 101.2 H 87.3 pO2 (Temp corrected) Arterial Blood 20.6 L 22.9 HCO3 Arterial Blood -10.5 L -4.5 L Base Excess Arterial Blood 95.3 96.2 Oxygen Saturatio n John Test ACCEPTAB ACCEPTAB Arterial Blood Right Radial Right Radial Gas Puncture Site Arterial 0.4 0.5 Blood Carboxyhem oglobin Arterial Blood 0.4 0.4 Methemoglobin Blood Gas A-a O2 60.2 H 100.9 H Differential Oxyhemoglobin 94.5 95.3 Percent Blood Gas 37.0 37.0 Temperature Blood Gas 18.0 24.0 Respiration Rate Blood Gas Actual 18 24 Respiration Rate Blood Gas BIPAP - S/T MASK MASK - BIPAP Modality FiO2 35.0 35.0 Blood Gas 10 Pressure Support Blood Gas Dottie Chavira [employer] Critical Value Read Back Blood Gas BRIANNA Pelayo RCP Notified Whom Blood Gas 11/23/2018 7:46:22 11/23/2018 9:38:39 Notified Time PM PM Bedside Glucose 77 111 Blood Gas 08/02 IPAP/EPAP Ratio Test 11/24/18 07:57 11/24/18 08:14 11/24/18 08:21 Blood Gas Blood arterial Specimen Source Arterial Blood 11/24/2018 8:19:56 Date Drawn AM Arterial Blood 7.238 *L pH (Temp corrected) Arterial Blood 51.1 H pCO2 (Temp correct) Arterial Blood 88.5 pO2 (Temp corrected) Arterial Blood 21.3 L HCO3 Arterial Blood -6.2 L Base Excess Arterial Blood 95.5 Oxygen Saturatio n John Test ACCEPTAB Arterial Blood Right Radial Gas Puncture Site Arterial 0.4 Blood Carboxyhem oglobin Arterial Blood 0.2 Methemoglobin Blood Gas A-a O2 0 L Differential Oxyhemoglobin 94.9 Percent Blood Gas 37.0 Temperature Blood Gas 24.0 Respiration Rate Blood Gas Actual 25 Respiration Rate Blood Gas MASK - BIPAP Modality FiO2 21.0 Blood Gas 15 Pressure Support Blood Gas 08/02 IPAP/EPAP Ratio Blood Gas LSWEWAYNE MELO Critical Value Read Back Blood Gas TM Notified Whom Blood Gas 11/24/2018 8:25:42 Notified Time AM White Blood 5.5 # Count Red Blood Count 4.27 Hemoglobin 9.4 L Hematocrit 31.6 L Mean Corpuscular 74.0 L Volume Mean Corpuscular 22.0 L Hemoglobin Mean Corpuscular 29.7 L Hemoglobin Lu nt Red Cell 20.0 H Distribution Width Platelet Count 182 # Mean Platelet 10.1 Volume Immature 0.400 Granulocytes % Neutrophils % 93.9 H Lymphocytes % 2.6 L Monocytes % 3.1 Eosinophils % 0.0 Basophils % 0.0 Nucleated Red 1.1 H Blood Cells % Immature 0.020 Granulocytes # Neutrophils # 5.1 Lymphocytes # 0.1 L Monocytes # 0.2 L Eosinophils # 0.0 Basophils # 0.0 Nucleated Red 0.1 H Blood Cells # Bedside Glucose 108 Medications Medication Current Medications IV Flush (NS 3 ml) 3 ml PER PROTOCOL IV ; Start 11/16/18 at 19:30 Ondansetron HCl (Zofran Inj) 4 mg Q6H PRN IV NAUSEA/VOMITING; Start 11/16/18 at 19:30 Acetaminophen (Tylenol Tab) 650 mg Q6H PRN PO .PAIN 1-3 OR TEMP; Start 11/16/18 at 19:30 Acetaminophen/ Hydrocodone Bitart ([place] (5/325)) 1 tab Q6H PRN PO .MOD PAIN 4- 6 Last administered on 11/20/18at 17:10; Admin Dose 1 TAB; Start 11/16/18 at 19:30 Morphine Sulfate (morphine) 2 mg Q4H PRN IV .SEVERE PAIN 7-10 Last administered on 11/18/18 00:13; Admin Dose 2 MG; Start 11/16/18 at 19:30 Docusate Sodium (Colace) 100 mg Q12H PRN PO .CONSTIPATION; Start 11/16/18 at 19:30 Zolpidem Tartrate (Ambien) 5 mg QHS PRN PO .INSOMNIA Last administered on 11/22/18 23:20; Admin Dose 5 MG; Start 11/16/18 at 19:30 Apixaban (Eliquis) 2.5 mg BID PO Last administered on 11/22/18 20:36; Admin Dose 2.5 MG; Start 11/16/18 at 21:00 Aspirin (Aspirin) 81 mg DAILY PO Last administered on 11/22/18 08:10; Admin Dose 81 MG; Start 11/17/18 at 09:00 Clotrimazole (Lotrimin Cr) 1 applic BID TOP Last administered on 11/22/18 20:41; Admin Dose 1 APPLIC; Start 11/16/18 at 21:00 Digoxin (Digoxin) 0.125 mg DAILY@13 PO Last administered on 11/22/18 12:10; Admin Dose 0.125 MG; Start 11/17/18 at 13:00 Diltiazem HCl (Cardizem Cd) 120 mg BID PO Last administered on 11/21/18 08:07; Admin Dose 120 MG; Start 11/16/18 at 21:00; Status Hold Hydralazine HCl (Apresoline) 50 mg Q8 PO Last administered on 11/22/18 22:03; Admin Dose 50 MG; Start 11/16/18 at 22:00 Tiotropium [place] (Spiriva) 1 inh DAILY INH Last administered on 11/22/18 08:09; Admin Dose 1 INH; Start 11/17/18 at 09:00 Diagnostic Test (Pha) (Accu-Chek) 1 ea 02 XX Last administered on 11/24/18 02:00; Admin Dose 1 EA; Start 11/17/18 at 02:00 Pantoprazole (Protonix Tab) 40 mg DAILY@06 PO Last administered on 11/22/18 05:26; Admin Dose 40 MG; Start 11/17/18 at 06:00 Psyllium Hydrophilic Mucilloid (Metamucil) 1 pkt DAILY PO Last administered on 11/22/18 08:09; Admin Dose 1 PKT; Start 11/17/18 at 09:00 Fluticasone/ Vilanterol (Breo Ellipta 100-25 Mcg Inh) 1 inh DAILY INH Last administered on 11/22/18 08:09; Admin Dose 1 INH; Start 11/17/18 at 12:00 Albuterol/ Ipratropium (Duoneb) 3 ml Q4H RESP THERAPY HHN Last administered on 11/24/18 07:55; Admin Dose 3 ML; Start 11/18/18 at 13:00 Linezolid (Zyvox) 600 mg BID PO Last administered on 11/22/18 20:36; Admin Dose 600 MG; Start 11/18/18 at 21:00 Cefepime HCl 50 ml @ 100 mls/hr Q24H IVPB Last administered on 11/23/18 22:54; Admin Dose 100 MLS/HR; Start 11/20/18 at 21:00 Fluconazole (Diflucan) 100 mg DAILY PO Last administered on 11/22/18 08:10; Admin Dose 100 MG; Start 11/21/18 at 09:00 Insulin Glargine (Lantus) 22 units DAILY@2000 SC Last administered on 11/22/18 20:49; Admin Dose 22 UNITS; Start 11/21/18 at 20:00 Metoprolol Tartrate (Lopressor) 5 mg Q4H PRN IV HR>110 Hold SBP<100; Start 11/23/18 at 13:00 Metoprolol Tartrate (Lopressor) 25 mg BID PO ; Start 11/23/18 at 21:00 Dextrose/Sodium Chloride 1,000 ml @ 50 mls/hr Q20H ONCE IV Last administered on 11/23/18 22:54; Admin Dose 50 MLS/HR; Start 11/23/18 at 22:30; Stop 11/24/18 at 18:29 Insulin Aspart (Novolog Insulin Pen) NOVOLOG *MILD* ALGORITHM Q4 SC ; Start 11/24/18 at 09:00 MINI PAEZ Nov 24, 2018 08:39
--- NOTE | 2018-11-24 08:41 | PN ---
DATE: 11/24/2018 SUBJECTIVE: The patient had hemodialysis yesterday with 2 liters removed. The patient remains alter ed, confused on BiPAP. No other acute events noted. OBJECTIVE: VITAL SIGNS: Blood pressure is 121/79, respirations 21, pulse 92, temperature 98.6. I's and O's: Reviewed. HEENT: Head is normocephalic. NECK: Supple. HEART: Regular rate. LUNGS: Show diminished breath sounds at the base. ABDOMEN: Soft, nontender to palpation without rebound or guarding. EXTREMITIES: Negative for clubbing, cyanosis. Positive edema. DERMATOLOGIC: No rashes. MUSCULOSKELETAL: No joint effusion. NEUROLOGIC: No change in exam. MEDICATIONS: Reviewed. LABORATORY DATA: Currently pending. ASSESSMENT AND PLAN: 1. Oliguric acute kidney injury on top of chronic kidney disease with previous baseline creatinine o f 1.5 mg/dL. Etiology of acute kidney injury is multifactorial secondary to hemodynamics, questionab le cardiorenal syndrome. The patient was initiated on hemodialysis due to uremia, volume overload, p ulmonary congestion. The patient had dialysis yesterday, tolerated well. Anticipate dialysis again daily for solute clearance and volume removal. We will continue to monitor closely. 2. Hyperkalemia secondary to acute injury. The patient is status post hemodialysis. We will follow up renal panel. Continue dialysis on low potassium bath. 3. Volume overload secondary to congestive heart failure, acute kidney injury. Continue ultrafiltra tion hemodialysis. 4. Mixed acid base disorder. The patient had hemodialysis on a 35 bicarbonate bath. We will contin ue. Follow up ABG. 5. Mineral bone disorder. Continue to monitor calcium and phosphorus levels. 6. Acute respiratory failure secondary to congestive heart failure, chronic obstructive pulmonary di sease exacerbation. Continue ultrafiltration dialysis. Continue BiPAP. 7. Atrial fibrillation. Continue medical management. 8. Diabetes. Continue current insulin regimen. 9. Obesity. Continue dietary modification. 10. Severe aortic stenosis. Continue to monitor. Please note I spent over 30 minutes of critical care time with this patient. Dictated By: JOCELINE MCCALLUM DO NR/NTS Conf#: [id number] DID#: [id number] CC: JABIER SEBASTIAN MD; JOCELINE MCCALLUM DO; HARIS GREEN MD;*EndCC*
[2018-11-24] MEDS: APIXABAN 5 MG TABLET PO SCH (09:00)
--- NOTE | 2018-11-24 09:07 | CONS ---
Consult Date/Type/Reason Admit Date/Time Nov 16, 2018 at 17:17 Initial Consult Date Type of Consultation: Pulm Requesting Provider: JABIER SEBASTIAN Date/Time of Note DATE: 11/24/18 TIME: 09:03 Subjective Pt now in ICU - on BiPAP - had Hd day prior, tolerated well - still acidotic - plan for more HD toady. Pulmoary follows. Con;t Rx - in a. fib - rate controlled now, ROS: per nurse - + SOB, NO F/C/n/V Objective Vitals Vital Signs Date Temp Pulse Resp B/P (MAP) Pulse Ox O2 O2 Flow FiO2 Time Delivery Rate 11/24/18 94.1 100 21 118/62 100 BIPAP 08:00 (80) 11/24/18 21 07:56 11/23/18 3.0 14:28 Intake and Output 11/23/18 11/23/18 11/24/18 1515:00 23:00 07:00 IntakeIntake Total 0 ml 400 ml OutputOutput Total 435 ml 2550 ml BalanceBalance -435 ml -2550 ml 400 ml Exam General: WN/WD/NAD, AOx 0 confused HEENT: Unicetric/atraumatic/EOMI (does not follow commands) NECK: JVD elevated, no thyromegaly - BiPAP Lymph: no lymphadenopathy HEART: irregular with no S3, II/ systolic murmur at apex LUNGS: Coarse sounds ABD: soft, NT, ND, +BS : Intact Neuro: non focal SKIN: chronic changes EXT: ++ edema Results/Medications Result Diagram: 11/24/18 0814 11/24/18 0814 Results 24 hrs Laboratory Tests Test 11/23/18 09:46 11/23/18 11:51 11/23/18 16:48 11/23/18 18:12 Prothrombin Time 25.0 #H Prothrombin Time 2.0 Ratio INR 2.26 International Normalized Ratio Activated 38.4 H Partial Thrombop last Time Bedside Glucose 70 91 Blood Gas Blood arterial Specimen Source Arterial Blood 11/23/2018 7:25:31 Date Drawn PM Arterial Blood 7.053 *L pH (Temp corrected) Arterial Blood 75.8 H pCO2 (Temp correct) Arterial Blood 101.2 H pO2 (Temp corrected) Arterial Blood 20.6 L HCO3 Arterial Blood -10.5 L Base Excess Arterial Blood 95.3 Oxygen Saturatio n John Test ACCEPTAB Arterial Blood Right Radial Gas Puncture Site Arterial 0.4 Blood Carboxyhem oglobin Arterial Blood 0.4 Methemoglobin Blood Gas A-a O2 60.2 H Differential Oxyhemoglobin 94.5 Percent Blood Gas 37.0 Temperature Blood Gas 18.0 Respiration Rate Blood Gas Actual 18 Respiration Rate Blood Gas BIPAP - S/T MASK Modality FiO2 35.0 Blood Gas 10 Pressure Support Blood Gas Dottie GAFFNEY RN Critical Value Read Back Blood Gas MJ Notified Whom Blood Gas 11/23/2018 7:46:22 Notified Time PM Test 11/23/18 20:04 11/23/18 21:00 11/24/18 03:14 11/24/18 07:57 Bedside Glucose 77 111 Blood Gas Blood arterial Blood arterial Specimen Source Arterial Blood 11/23/2018 9:32:58 11/24/2018 8:19:56 Date Drawn PM AM Arterial Blood 7.255 *L 7.238 *L pH (Temp corrected) Arterial Blood 52.8 H 51.1 H pCO2 (Temp correct) Arterial Blood 87.3 88.5 pO2 (Temp corrected) Arterial Blood 22.9 21.3 L HCO3 Arterial Blood -4.5 L -6.2 L Base Excess Arterial Blood 96.2 95.5 Oxygen Saturatio n John Test ACCEPTAB ACCEPTAB Arterial Blood Right Radial Right Radial Gas Puncture Site Arterial 0.5 0.4 Blood Carboxyhem oglobin Arterial Blood 0.4 0.2 Methemoglobin Blood Gas A-a O2 100.9 H 0 L Differential Oxyhemoglobin 95.3 94.9 Percent Blood Gas 37.0 37.0 Temperature Blood Gas 24.0 24.0 Respiration Rate Blood Gas Actual 24 25 Respiration Rate Blood Gas MASK - BIPAP MASK - BIPAP Modality FiO2 35.0 21.0 Blood Gas 08/02 08/02 IPAP/EPAP Ratio Blood Gas Katja GUERRA RN Critical Value Read Back Blood Gas Mariana Pelayo RCP TM Notified Whom Blood Gas 11/23/2018 9:38:39 11/24/2018 8:25:42 Notified Time PM AM Blood Gas 15 Pressure Support Test 11/24/18 08:14 11/24/18 08:21 White Blood 5.5 # Count Red Blood Count 4.27 Hemoglobin 9.4 L Hematocrit 31.6 L Mean Corpuscular 74.0 L Volume Mean Corpuscular 22.0 L Hemoglobin Mean Corpuscular 29.7 L Hemoglobin Lu nt Red Cell 20.0 H Distribution Width Platelet Count 182 # Mean Platelet 10.1 Volume Immature 0.400 Granulocytes % Neutrophils % 93.9 H Lymphocytes % 2.6 L Monocytes % 3.1 Eosinophils % 0.0 Basophils % 0.0 Nucleated Red 1.1 H Blood Cells % Immature 0.020 Granulocytes # Neutrophils # 5.1 Lymphocytes # 0.1 L Monocytes # 0.2 L Eosinophils # 0.0 Basophils # 0.0 Nucleated Red 0.1 H Blood Cells # Sodium Level 139 Potassium Level 5.5 H Chloride Level 104 Carbon Dioxide 22 Level Anion Gap 13 Blood Urea 79 H Nitrogen Creatinine 4.11 H Est Glomerular Filtrat Rate mL/min Glucose Level 131 # Calcium Level 8.5 Bedside Glucose 108 Home Meds Active Scripts Furosemide* (Furosemide*) 40 Mg Tablet, 40 MG PO DAILY, #30 TAB Prov:DAVID RAUSCH NP 08/09/18 Clotrimazole* (Lotrimin*) 1%-30 Gm Cream..g., 1 APPLIC TOP BID, #1 TUB Please apply to the right lower extremity wound twice daily. Prov:DAVID RAUSCH NP 08/09/18 Insulin Glargine,Hum.rec.anlog (Basaglar Kwikpen U-100) 100 Unit/1 Ml Insuln.pen, 5 UNIT SC DAILY for 30 Days, #1 EA Prov:RAMIRO MORRIS MD 04/05/18 Linagliptin (TRADJENTA) 5 Mg Tablet, 5 MG PO DAILY for 30 Days, #30 TAB Prov:RAMIRO MORRIS MD 04/05/18 Insulin Aspart* (Novolog Insulin Pen*) 100 Unit/Ml Soln, 10 UNIT SC WITH LUNCH for 30 Days, #1 EA Prov:RAMIRO MORRIS MD 04/05/18 Insulin Aspart* (Novolog Insulin Pen*) 100 Unit/Ml Soln, 10 UNIT SC WITH DINNER for 30 Days, #1 EA Prov:RAMIRO MORRIS MD 04/05/18 Insulin Aspart* (Novolog Insulin Pen*) 100 Unit/Ml Soln, 6 UNIT SC WITH BREAKFAST for 30 Days, #1 EA Prov:RAMIRO MORRIS MD 04/05/18 Fluticasone-Vilanterol (Breo Ellipta Inhaler) 100-25 Mcg/Actuation Aer.pow.ba, 1 INH INH DAILY for 30 Days, #1 EA Prov:RAMIRO MORRIS MD 04/05/18 Aspirin (Aspirin) 81 Mg Chew, 81 MG PO DAILY for 30 Days, #30 TAB Prov:RAMIRO MORRIS MD 04/05/18 Metoprolol Tartrate* (Lopressor*) 25 Mg Tab, 75 MG PO BID for 30 Days, #60 TAB Prov:RAMIRO MORRIS MD 04/05/18 Hydralazine Hcl* (Apresoline*) 50 Mg Tab, 50 MG PO Q8 for 30 Days, #90 TAB Prov:RAMIRO MORRIS MD 04/05/18 Diltiazem Hcl* (Cardizem CD*) 120 Mg Cap.sr.24h, 120 MG PO BID for 30 Days, #60 TAB Prov:RAMIRO MORRIS MD 04/05/18 Apixaban* (Eliquis*) 5 Mg Tablet, 2.5 MG PO BID for 30 Days, #60 TAB Prov:RAMIRO MORRIS MD 04/05/18 Tiotropium [place]* (Spiriva*) 18 Mcg Cap.w.dev, 1 INH INH DAILY for 30 Days, #30 CAP Prov:RAMIRO MORRIS MD 04/05/18 Psyllium [place] (Metamucil) 0.52 Gm Capsule, 0.52 GM PO DAILY for 30 Days, #30 CAP Prov:RAMIRO MORRIS MD 04/19/17 Digoxin* (Digitek*) 0.125 Mg Tab, 0.125 MG PO DAILY@13, #30 3 Refills Prov:DALLAS PICKETT 03/22/15 Reported Medications Albuterol Sulfate* (Proair HFA*) 8.5 Gm Hfa.aer.ad, 2 PUFF INH Q6H PRN for WHEEZING AND SOB, INH 03/16/15 Omeprazole* (Omeprazole*) 20 Mg Capsule.dr, 20 MG PO DAILY, CAP 03/16/15 Medications Current Medications IV Flush (NS 3 ml) 3 ml PER PROTOCOL IV ; Start 11/16/18 at 19:30 Ondansetron HCl (Zofran Inj) 4 mg Q6H PRN IV NAUSEA/VOMITING; Start 11/16/18 at 19:30 Acetaminophen (Tylenol Tab) 650 mg Q6H PRN PO .PAIN 1-3 OR TEMP; Start 11/16/18 at 19:30 Acetaminophen/ Hydrocodone Bitart ([place] (5/325)) 1 tab Q6H PRN PO .MOD PAIN 4- 6 Last administered on 11/20/18 17:10; Admin Dose 1 TAB; Start 11/16/18 at 19:30 Morphine Sulfate (morphine) 2 mg Q4H PRN IV .SEVERE PAIN 7-10 Last administered on 11/18/18 00:13; Admin Dose 2 MG; Start 11/16/18 at 19:30 Docusate Sodium (Colace) 100 mg Q12H PRN PO .CONSTIPATION; Start 11/16/18 at 19:30 Zolpidem Tartrate (Ambien) 5 mg QHS PRN PO .INSOMNIA Last administered on 11/22/18 23:20; Admin Dose 5 MG; Start 11/16/18 at 19:30 Apixaban (Eliquis) 2.5 mg BID PO Last administered on 11/22/18 20:36; Admin Dose 2.5 MG; Start 11/16/18 at 21:00 Aspirin (Aspirin) 81 mg DAILY PO Last administered on 11/22/18 08:10; Admin Dose 81 MG; Start 11/17/18 at 09:00 Clotrimazole (Lotrimin Cr) 1 applic BID TOP Last administered on 11/22/18 20:41; Admin Dose 1 APPLIC; Start 11/16/18 at 21:00 Digoxin (Digoxin) 0.125 mg DAILY@13 PO Last administered on 11/22/18 12:10; Admin Dose 0.125 MG; Start 11/17/18 at 13:00 Diltiazem HCl (Cardizem Cd) 120 mg BID PO Last administered on 11/21/18 08:07; Admin Dose 120 MG; Start 11/16/18 at 21:00; Status Hold Hydralazine HCl (Apresoline) 50 mg Q8 PO Last administered on 11/22/18 22:03; Admin Dose 50 MG; Start 11/16/18 at 22:00 Tiotropium [place] (Spiriva) 1 inh DAILY INH Last administered on 11/22/18 08:09; Admin Dose 1 INH; Start 11/17/18 at 09:00 Diagnostic Test (Pha) (Accu-Chek) 1 ea 02 XX Last administered on 11/24/18 02:00; Admin Dose 1 EA; Start 11/17/18 at 02:00 Pantoprazole (Protonix Tab) 40 mg DAILY@06 PO Last administered on 11/22/18 05:26; Admin Dose 40 MG; Start 11/17/18 at 06:00 Psyllium Hydrophilic Mucilloid (Metamucil) 1 pkt DAILY PO Last administered on 11/22/18 08:09; Admin Dose 1 PKT; Start 11/17/18 at 09:00 Fluticasone/ Vilanterol (Breo Ellipta 100-25 Mcg Inh) 1 inh DAILY INH Last administered on 11/22/18 08:09; Admin Dose 1 INH; Start 11/17/18 at 12:00 Albuterol/ Ipratropium (Duoneb) 3 ml Q4H RESP THERAPY HHN Last administered on 11/24/18 07:55; Admin Dose 3 ML; Start 11/18/18 at 13:00 Linezolid (Zyvox) 600 mg BID PO Last administered on 11/22/18 20:36; Admin Dose 600 MG; Start 11/18/18 at 21:00 Cefepime HCl 50 ml @ 100 mls/hr Q24H IVPB Last administered on 11/23/18 22:54; Admin Dose 100 MLS/HR; Start 11/20/18 at 21:00 Fluconazole (Diflucan) 100 mg DAILY PO Last administered on 11/22/18 08:10; Admin Dose 100 MG; Start 11/21/18 at 09:00 Insulin Glargine (Lantus) 22 units DAILY@2000 SC Last administered on 11/22/18 20:49; Admin Dose 22 UNITS; Start 11/21/18 at 20:00 Metoprolol Tartrate (Lopressor) 5 mg Q4H PRN IV HR>110 Hold SBP<100; Start 11/23/18 at 13:00 Metoprolol Tartrate (Lopressor) 25 mg BID PO ; Start 11/23/18 at 21:00 Dextrose/Sodium Chloride 1,000 ml @ 50 mls/hr Q20H ONCE IV Last administered on 11/23/18at 22:54; Admin Dose 50 MLS/HR; Start 11/23/18 at 22:30; Stop 11/24/18 at 18:29 Insulin Aspart (Novolog Insulin Pen) NOVOLOG *MILD* ALGORITHM Q4 SC ; Start 11/24/18 at 09:00 Imaging 1. Atrial fibrillation. The patient has atrial fibrillation, chronic. Co ntinue rate control strategy now and follow. Rate controlled mostly. 2. Bradycardia. The patient has 1 episode of bradycardia to 38, now improved, possibly related to hypoxia. We will adjust medications as necessary and monitor closely.No Class I indication for pacemaker. 3. Hypercoagulable state. The patient is currently on Eliquis. Continue to follow. Stable. 4. Renal dysfunction. Creatinine is higher. Renal team follows. We will monitor closely. On HD now. 5. Hyperkalemia. Potassium is on the high side. Continue to treat as indicated. Con't Rx. 6. Congestive heart failure. The patient is in heart failure, acute on chronic, diastolic. Remove fluid with HD to treat acidosis. JUAN KEY MD Nov 24, 2018 09:07
[2018-11-24] MEDS: HEPARIN 25000 UNITS/250 ML 250 ML IV SCH (10:13)
[2018-11-24] MEDS: CLOTRIMAZOLE 1% 30 GM CR TOP SCH ×2 (10:16→20:17)
--- NOTE | 2018-11-24 12:37 | CONS ---
Assessment/Plan Assessment/Plan Hospital Course (Demo Recall) Patient is lethargic, on BiPAP, had been dialyzed yesterday, no fevers overnight. WBC 5.5 H&H 9.4 and 31.6 platelets 182 BUN 79 creatinine 4.11 Indwelling: Right femoral Noel, Soto catheter Chest x-ray this morning revealed improving congestion Antimicrobials: Zyvox cefepime, Diflucan Physical examination: Well-developed morbidly obese -[place]ese woman who in no distress. Head atraumatic normocephalic sclera nonicteric. Neck is supple. Chest rise symmetrical breath sounds diminished to bases. Heart: S1- S2.. Abdomen obese soft, bowel sounds present. Extremities: Bilateral lower extremities edema erythema and multiple wounds Assessment: 1. Acute hypoxemic respiratory failure secondary to pulmonary edema and CHF exacerbation, poss PNA 2. Sepsis, present on admission 3. 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 Urinary tract infection 5. Staph bacteremia consistent with contaminant 6. Morbid obesity 7. Atrial fibrillation 8. Diabetes 9. Acute kidney failure Plan: Remains unchanged, comfortable on BiPAP, continue antibiotics, local wound care, f/u pulmonary/renal rec-s DW staff Consultation Date/Type/Reason Admit Date/Time Nov 16, 2018 at 17:17 Initial Consult Date Type of Consult id Requesting Provider: JABIER SEBASTIAN Date/Time of Note DATE: 11/24/18 TIME: 12:36 Exam/Review of Systems Exam Vitals Vital Signs Date Temp Pulse Resp B/P (MAP) Pulse Ox O2 O2 Flow FiO2 Time Delivery Rate 11/24/18 95.2 94 21 101/62 94 BIPAP 12:00 (75) 11/24/18 21 11:37 11/23/18 3.0 14:28 Intake and Output 11/23/18 11/23/18 11/24/18 1515:00 23:00 07:00 IntakeIntake Total 0 ml 400 ml OutputOutput Total 435 ml 2550 ml 0 ml BalanceBalance -435 ml -2550 ml 400 ml Results Result Diagram: 11/24/18 0814 11/24/18 0814 Results 24hrs Laboratory Tests Test 11/23/18 16:48 11/23/18 18:12 11/23/18 20:04 11/23/18 21:00 Bedside Glucose 91 77 Blood Gas Blood arterial Blood arterial Specimen Source Arterial Blood 11/23/2018 7:25:31 11/23/2018 9:32:58 Date Drawn PM PM Arterial Blood 7.053 *L 7.255 *L pH (Temp corrected) Arterial Blood 75.8 H 52.8 H pCO2 (Temp correct) Arterial Blood 101.2 H 87.3 pO2 (Temp corrected) Arterial Blood 20.6 L 22.9 HCO3 Arterial Blood -10.5 L -4.5 L Base Excess Arterial Blood 95.3 96.2 Oxygen Saturatio n John Test ACCEPTAB ACCEPTAB Arterial Blood Right Radial Right Radial Gas Puncture Site Arterial 0.4 0.5 Blood Carboxyhem oglobin Arterial Blood 0.4 0.4 Methemoglobin Blood Gas A-a O2 60.2 H 100.9 H Differential Oxyhemoglobin 94.5 95.3 Percent Blood Gas 37.0 37.0 Temperature Blood Gas 18.0 24.0 Respiration Rate Blood Gas Actual 18 24 Respiration Rate Blood Gas BIPAP - S/T MASK MASK - BIPAP Modality FiO2 35.0 35.0 Blood Gas 10 Pressure Support Blood Gas C. [place] KAMERON Chavira VP ANCILLARY Critical Value Read Back Blood Gas [facility] Gita VP ANCILLARY Notified Whom Blood Gas 11/23/2018 7:46:22 11/23/2018 9:38:39 Notified Time PM PM Blood Gas 08/02 IPAP/EPAP Ratio Test 11/24/18 03:14 11/24/18 07:57 11/24/18 08:14 11/24/18 08:21 Bedside Glucose 111 108 Blood Gas Blood arterial Specimen Source Arterial Blood 11/24/2018 8:19:56 Date Drawn AM Arterial Blood 7.238 *L pH (Temp corrected) Arterial Blood 51.1 H pCO2 (Temp correct) Arterial Blood 88.5 pO2 (Temp corrected) Arterial Blood 21.3 L HCO3 Arterial Blood -6.2 L Base Excess Arterial Blood 95.5 Oxygen Saturatio n John Test ACCEPTAB Arterial Blood Right Radial Gas Puncture Site Arterial 0.4 Blood Carboxyhem oglobin Arterial Blood 0.2 Methemoglobin Blood Gas A-a O2 0 L Differential Oxyhemoglobin 94.9 Percent Blood Gas 37.0 Temperature Blood Gas 24.0 Respiration Rate Blood Gas Actual 25 Respiration Rate Blood Gas MASK - BIPAP Modality FiO2 21.0 Blood Gas 15 Pressure Support Blood Gas 20/5 IPAP/EPAP Ratio Blood Gas MARI MELO Critical Value Read Back Blood Gas TM Notified Whom Blood Gas 11/24/2018 8:25:42 Notified Time AM White Blood 5.5 # Count Red Blood Count 4.27 Hemoglobin 9.4 L Hematocrit 31.6 L Mean Corpuscular 74.0 L Volume Mean Corpuscular 22.0 L Hemoglobin Mean Corpuscular 29.7 L Hemoglobin Lu nt Red Cell 20.0 H Distribution Width Platelet Count 182 # Mean Platelet 10.1 Volume Immature 0.400 Granulocytes % Neutrophils % 93.9 H Lymphocytes % 2.6 L Monocytes % 3.1 Eosinophils % 0.0 Basophils % 0.0 Nucleated Red 1.1 H Blood Cells % Immature 0.020 Granulocytes # Neutrophils # 5.1 Lymphocytes # 0.1 L Monocytes # 0.2 L Eosinophils # 0.0 Basophils # 0.0 Nucleated Red 0.1 H Blood Cells # Sodium Level 139 Potassium Level 5.5 H Chloride Level 104 Carbon Dioxide 22 Level Anion Gap 13 Blood Urea 79 H Nitrogen Creatinine 4.11 H Est Glomerular Filtrat Rate mL/min Glucose Level 131 # Calcium Level 8.5 Test 11/24/18 09:28 11/24/18 11:37 Prothrombin Time 27.4 H Prothrombin Time 2.1 Ratio INR 2.54 International Normalized Ratio Activated 38.3 H Partial Thrombop last Time Bedside Glucose 149 Medications Medication Current Medications IV Flush (NS 3 ml) 3 ml PER PROTOCOL IV ; Start 11/16/18 at 19:30 Ondansetron HCl (Zofran Inj) 4 mg Q6H PRN IV NAUSEA/VOMITING; Start 11/16/18 at 19:30 Acetaminophen (Tylenol Tab) 650 mg Q6H PRN PO .PAIN 1-3 OR TEMP; Start 11/16/18 at 19:30 Acetaminophen/ Hydrocodone Bitart ([place] (5/325)) 1 tab Q6H PRN PO .MOD PAIN 4- 6 Last administered on 11/20/18at 17:10; Admin Dose 1 TAB; Start 11/16/18 at 19:30 Morphine Sulfate (morphine) 2 mg Q4H PRN IV .SEVERE PAIN 7-10 Last administered on 11/18/18at 00:13; Admin Dose 2 MG; Start 11/16/18 at 19:30 Docusate Sodium (Colace) 100 mg Q12H PRN PO .CONSTIPATION; Start 11/16/18 at 19:30 Zolpidem Tartrate (Ambien) 5 mg QHS PRN PO .INSOMNIA Last administered on 11/22/18 23:20; Admin Dose 5 MG; Start 11/16/18 at 19:30 Apixaban (Eliquis) 2.5 mg BID PO Last administered on 11/22/18 20:36; Admin Dose 2.5 MG; Start 11/16/18 at 21:00; Status Hold Clotrimazole (Lotrimin Cr) 1 applic BID TOP Last administered on 11/24/18 10:16; Admin Dose 1 APPLIC; Start 11/16/18 at 21:00 Digoxin (Digoxin) 0.125 mg DAILY@13 PO Last administered on 11/22/18 12:10; Admin Dose 0.125 MG; Start 11/17/18 at 13:00 Fluticasone/ Vilanterol (Breo Ellipta 100-25 Mcg Inh) 1 inh DAILY INH Last administered on 11/22/18 08:09; Admin Dose 1 INH; Start 11/17/18 at 12:00 Albuterol/ Ipratropium (Duoneb) 3 ml Q4H RESP THERAPY HHN Last administered on 11/24/18 12:35; Admin Dose 3 ML; Start 11/18/18 at 13:00 Cefepime HCl 50 ml @ 100 mls/hr Q24H IVPB Last administered on 11/23/18 22:54; Admin Dose 100 MLS/HR; Start 11/20/18 at 21:00 Insulin Glargine (Lantus) 22 units DAILY@2000 SC Last administered on 11/22/18 20:49; Admin Dose 22 UNITS; Start 11/21/18 at 20:00 Metoprolol Tartrate (Lopressor) 5 mg Q4H PRN IV HR>110 Hold SBP<100; Start 11/23/18 at 13:00 Dextrose/Sodium Chloride 1,000 ml @ 50 mls/hr Q20H ONCE IV Last administered on 11/23/18 22:54; Admin Dose 50 MLS/HR; Start 11/23/18 at 22:30; Stop 11/24/18 at 18:29 Insulin Aspart (Novolog Insulin Pen) NOVOLOG *MILD* ALGORITHM Q4 SC Last administered on 11/24/18at 11:43; Admin Dose 1 UNIT; Start 11/24/18 at 09:00 Heparin Sodium (Porcine) 250 ml @ 10 mls/hr PER PROTOCOL IV Last administered on 11/24/18at 10:13; Admin Dose 10 MLS/HR; Start 11/24/18 at 10:04 ROCHELLE STERLING NP Nov 24, 2018 12:37
[2018-11-24] MEDS: DIGOXIN 0.125 MG TAB PO SCH (13:00)
[2018-11-24] MEDS ORDERED: ALBUMIN HUMAN 25% 0 ML ONE (13:37)
[2018-11-24] MEDS ORDERED: ALBUMIN HUMAN 25% 100 ML IV PRN (14:00)
[2018-11-24] MEDS ORDERED: HEPARIN 5,000 UNIT/1 ML VIAL SC SCH (14:00)
--- NOTE | 2018-11-24 14:42 | PN ---
Date/Time of Note Date/Time of Note DATE: 11/24/18 TIME: 14:39 Assessment/Plan VTE Prophylaxis Risk score (from Ns)>0 risk: 12 SCD applied (from Ns): Yes Pharmacological prophylaxis: heparin Lines/Catheters IV [facility]ter Type [facility]from [facility] Noel Cath Urinary Cath still in place: Yes Reason Cath still needed: urinary retention Assessment/Plan Hospital Course 83 yo female with , diastolic CHF with acute respiratory failure and volume overload from CHF and BRIE Acute respiratory failure: - Continue BIPAP CHF: - HD is only option as declining renal function and diuretics ineffective BRIE: - HD per Dr Samantha Barnett Fib: - Heparin drip as NPO Imaging suggestive of cirrhosis DNR - Continue to address goals of care as poor prognosis regardless Result Diagram: 11/24/1814 11/24/1814 Results 24hrs Laboratory Tests Test 11/23/18 16:48 11/23/18 18:12 11/23/18 20:04 11/23/18 21:00 Bedside Glucose 91 77 Blood Gas Blood arterial Blood arterial Specimen Source Arterial Blood 11/23/2018 7:25:31 11/23/2018 9:32:58 Date Drawn PM PM Arterial Blood 7.053 *L 7.255 *L pH (Temp corrected) Arterial Blood 75.8 H 52.8 H pCO2 (Temp correct) Arterial Blood 101.2 H 87.3 pO2 (Temp corrected) Arterial Blood 20.6 L 22.9 HCO3 Arterial Blood -10.5 L -4.5 L Base Excess Arterial Blood 95.3 96.2 Oxygen Saturatio n John Test ACCEPTAB ACCEPTAB Arterial Blood Right Radial Right Radial Gas Puncture Site Arterial 0.4 0.5 Blood Carboxyhem oglobin Arterial Blood 0.4 0.4 Methemoglobin Blood Gas A-a O2 60.2 H 100.9 H Differential Oxyhemoglobin 94.5 95.3 Percent Blood Gas 37.0 37.0 Temperature Blood Gas 18.0 24.0 Respiration Rate Blood Gas Actual 18 24 Respiration Rate Blood Gas BIPAP - S/T MASK MASK - BIPAP Modality FiO2 35.0 35.0 Blood Gas 10 Pressure Support Blood Gas CCaitlyn [place] KAMERON Chavira RCP Critical Value Read Back Blood Gas BRIANNA Pelayo RCP Notified Whom Blood Gas 11/23/2018 7:46:22 11/23/2018 9:38:39 Notified Time PM PM Blood Gas 08/02 IPAP/EPAP Ratio Test 11/24/18 03:14 11/24/18 07:57 11/24/18 08:14 11/24/18 08:21 Bedside Glucose 111 108 Blood Gas Blood arterial Specimen Source Arterial Blood 11/24/2018 8:19:56 Date Drawn AM Arterial Blood 7.238 *L pH (Temp corrected) Arterial Blood 51.1 H pCO2 (Temp correct) Arterial Blood 88.5 pO2 (Temp corrected) Arterial Blood 21.3 L HCO3 Arterial Blood -6.2 L Base Excess Arterial Blood 95.5 Oxygen Saturatio n John Test ACCEPTAB Arterial Blood Right Radial Gas Puncture Site Arterial 0.4 Blood Carboxyhem oglobin Arterial Blood 0.2 Methemoglobin Blood Gas A-a O2 0 L Differential Oxyhemoglobin 94.9 Percent Blood Gas 37.0 Temperature Blood Gas 24.0 Respiration Rate Blood Gas Actual 25 Respiration Rate Blood Gas MASK - BIPAP Modality FiO2 21.0 Blood Gas 15 Pressure Support Blood Gas 08/02 IPAP/EPAP Ratio Blood Gas ZITAWEWAYNE MELO Critical Value Read Back Blood Gas TM Notified Whom Blood Gas 11/24/2018 8:25:42 Notified Time AM White Blood 5.5 # Count Red Blood Count 4.27 Hemoglobin 9.4 L Hematocrit 31.6 L Mean Corpuscular 74.0 L Volume Mean Corpuscular 22.0 L Hemoglobin Mean Corpuscular 29.7 L Hemoglobin Lu nt Red Cell 20.0 H Distribution Width Platelet Count 182 # Mean Platelet 10.1 Volume Immature 0.400 Granulocytes % Neutrophils % 93.9 H Lymphocytes % 2.6 L Monocytes % 3.1 Eosinophils % 0.0 Basophils % 0.0 Nucleated Red 1.1 H Blood Cells % Immature 0.020 Granulocytes # Neutrophils # 5.1 Lymphocytes # 0.1 L Monocytes # 0.2 L Eosinophils # 0.0 Basophils # 0.0 Nucleated Red 0.1 H Blood Cells # Sodium Level 139 Potassium Level 5.5 H Chloride Level 104 Carbon Dioxide 22 Level Anion Gap 13 Blood Urea 79 H Nitrogen Creatinine 4.11 H Est Glomerular Filtrat Rate mL/min Glucose Level 131 # Calcium Level 8.5 Test 11/24/18 09:28 11/24/18 11:37 Prothrombin Time 27.4 H Prothrombin Time 2.1 Ratio INR 2.54 International Normalized Ratio Activated 38.3 H Partial Thrombop last Time Bedside Glucose 149 Subjective 24 Hr Interval Summary Free Text/Dictation Moved to ICU Worsening hypotension Received dialysis yesterday Still on BIPAP Exam/Review of Systems Exam Vitals Vital Signs Date Temp Pulse Resp B/P (MAP) Pulse Ox O2 O2 Flow FiO2 Time Delivery Rate 11/24/18 103 23 112/73 97 BIPAP 14:00 (86) 11/24/18 21 12:36 11/24/18 95.2 12:00 11/23/18 3.0 14:28 Intake and Output 11/23/18 11/23/18 11/24/18 1515:00 23:00 07:00 IntakeIntake Total 0 ml 400 ml OutputOutput Total 435 ml 2550 ml 0 ml BalanceBalance -435 ml -2550 ml 400 ml Exam Encephelopathic, lethargic, non verbal ++ JVD Tachy, regular Labored, rhonchi, tachypneic Soft nt nd Results Results 24hrs Laboratory Tests Test 11/23/18 16:48 11/23/18 18:12 11/23/18 20:04 11/23/18 21:00 Bedside Glucose 91 77 Blood Gas Blood arterial Blood arterial Specimen Source Arterial Blood 11/23/2018 7:25:31 11/23/2018 9:32:58 Date Drawn PM PM Arterial Blood 7.053 *L 7.255 *L pH (Temp corrected) Arterial Blood 75.8 H 52.8 H pCO2 (Temp correct) Arterial Blood 101.2 H 87.3 pO2 (Temp corrected) Arterial Blood 20.6 L 22.9 HCO3 Arterial Blood -10.5 L -4.5 L Base Excess Arterial Blood 95.3 96.2 Oxygen Saturatio n John Test ACCEPTAB ACCEPTAB Arterial Blood Right Radial Right Radial Gas Puncture Site Arterial 0.4 0.5 Blood Carboxyhem oglobin Arterial Blood 0.4 0.4 Methemoglobin Blood Gas A-a O2 60.2 H 100.9 H Differential Oxyhemoglobin 94.5 95.3 Percent Blood Gas 37.0 37.0 Temperature Blood Gas 18.0 24.0 Respiration Rate Blood Gas Actual 18 24 Respiration Rate Blood Gas BIPAP - S/T MASK MASK - BIPAP Modality FiO2 35.0 35.0 Blood Gas 10 Pressure Support Blood Gas Dottie Chavira [employer] Critical Value Read Back Blood Gas BRIANNA Pelayo [facility] Notified Whom Blood Gas 11/23/2018 7:46:22 11/23/2018 9:38:39 Notified Time PM PM Blood Gas 08/02 IPAP/EPAP Ratio Test 11/24/18 03:14 11/24/18 07:57 11/24/18 08:14 11/24/18 08:21 Bedside Glucose 111 108 Blood Gas Blood arterial Specimen Source Arterial Blood 11/24/2018 8:19:56 Date Drawn AM Arterial Blood 7.238 *L pH (Temp corrected) Arterial Blood 51.1 H pCO2 (Temp correct) Arterial Blood 88.5 pO2 (Temp corrected) Arterial Blood 21.3 L HCO3 Arterial Blood -6.2 L Base Excess Arterial Blood 95.5 Oxygen Saturatio n John Test ACCEPTAB Arterial Blood Right Radial Gas Puncture Site Arterial 0.4 Blood Carboxyhem oglobin Arterial Blood 0.2 Methemoglobin Blood Gas A-a O2 0 L Differential Oxyhemoglobin 94.9 Percent Blood Gas 37.0 Temperature Blood Gas 24.0 Respiration Rate Blood Gas Actual 25 Respiration Rate Blood Gas MASK - BIPAP Modality FiO2 21.0 Blood Gas 15 Pressure Support Blood Gas 08/02 IPAP/EPAP Ratio Blood Gas LSWEWAYNE MELO Critical Value Read Back Blood Gas TM Notified Whom Blood Gas 11/24/2018 8:25:42 Notified Time AM White Blood 5.5 # Count Red Blood Count 4.27 Hemoglobin 9.4 L Hematocrit 31.6 L Mean Corpuscular 74.0 L Volume Mean Corpuscular 22.0 L Hemoglobin Mean Corpuscular 29.7 L Hemoglobin Lu nt Red Cell 20.0 H Distribution Width Platelet Count 182 # Mean Platelet 10.1 Volume Immature 0.400 Granulocytes % Neutrophils % 93.9 H Lymphocytes % 2.6 L Monocytes % 3.1 Eosinophils % 0.0 Basophils % 0.0 Nucleated Red 1.1 H Blood Cells % Immature 0.020 Granulocytes # Neutrophils # 5.1 Lymphocytes # 0.1 L Monocytes # 0.2 L Eosinophils # 0.0 Basophils # 0.0 Nucleated Red 0.1 H Blood Cells # Sodium Level 139 Potassium Level 5.5 H Chloride Level 104 Carbon Dioxide 22 Level Anion Gap 13 Blood Urea 79 H Nitrogen Creatinine 4.11 H Est Glomerular Filtrat Rate mL/min Glucose Level 131 # Calcium Level 8.5 Test 11/24/18 09:28 11/24/18 11:37 Prothrombin Time 27.4 H Prothrombin Time 2.1 Ratio INR 2.54 International Normalized Ratio Activated 38.3 H Partial Thrombop last Time Bedside Glucose 149 Medications Medication Current Medications IV Flush (NS 3 ml) 3 ml PER PROTOCOL IV ; Start 11/16/18 at 19:30 Ondansetron HCl (Zofran Inj) 4 mg Q6H PRN IV NAUSEA/VOMITING; Start 11/16/18 at 19:30 Acetaminophen (Tylenol Tab) 650 mg Q6H PRN PO .PAIN 1-3 OR TEMP; Start 11/16/18 at 19:30 Acetaminophen/ Hydrocodone Bitart ([place] (5/325)) 1 tab Q6H PRN PO .MOD PAIN 4- 6 Last administered on 11/20/18 17:10; Admin Dose 1 TAB; Start 11/16/18 at 19:30 Morphine Sulfate (morphine) 2 mg Q4H PRN IV .SEVERE PAIN 7-10 Last administered on 11/18/18 00:13; Admin Dose 2 MG; Start 11/16/18 at 19:30 Docusate Sodium (Colace) 100 mg Q12H PRN PO .CONSTIPATION; Start 11/16/18 at 19:30 Zolpidem Tartrate (Ambien) 5 mg QHS PRN PO .INSOMNIA Last administered on 11/22/18 23:20; Admin Dose 5 MG; Start 11/16/18 at 19:30 Apixaban (Eliquis) 2.5 mg BID PO Last administered on 11/22/18 20:36; Admin Dose 2.5 MG; Start 11/16/18 at 21:00; Status Hold Clotrimazole (Lotrimin Cr) 1 applic BID TOP Last administered on 11/24/18 10:16; Admin Dose 1 APPLIC; Start 11/16/18 at 21:00 Digoxin (Digoxin) 0.125 mg DAILY@13 PO Last administered on 11/22/18 12:10; Admin Dose 0.125 MG; Start 11/17/18 at 13:00 Fluticasone/ Vilanterol (Breo Ellipta 100-25 Mcg Inh) 1 inh DAILY INH Last administered on 11/22/18 08:09; Admin Dose 1 INH; Start 11/17/18 at 12:00 Albuterol/ Ipratropium (Duoneb) 3 ml Q4H RESP THERAPY HHN Last administered on 11/24/18 12:35; Admin Dose 3 ML; Start 11/18/18 at 13:00 Cefepime HCl 50 ml @ 100 mls/hr Q24H IVPB Last administered on 11/23/18 22:54; Admin Dose 100 MLS/HR; Start 11/20/18 at 21:00 Insulin Glargine (Lantus) 22 units DAILY@2000 SC Last administered on 11/22/18 20:49; Admin Dose 22 UNITS; Start 11/21/18 at 20:00 Metoprolol Tartrate (Lopressor) 5 mg Q4H PRN IV HR>110 Hold SBP<100; Start 11/23/18 at 13:00 Insulin Aspart (Novolog Insulin Pen) NOVOLOG *MILD* ALGORITHM Q4 SC Last administered on 11/24/18 11:43; Admin Dose 1 UNIT; Start 11/24/18 at 09:00 Heparin Sodium (Porcine) 250 ml @ 10 mls/hr PER PROTOCOL IV Last administered on 11/24/18 10:13; Admin Dose 10 MLS/HR; Start 11/24/18 at 10:04 Albumin Human 100 ml @ 100 mls/hr DURING DIALYSIS PRN IV BLOOD PRESSURE SUPPORT; Start 11/24/18 at 14:00; Stop 11/24/18 at 18:00 HARIS GREEN MD Nov 24, 2018 14:42
[2018-11-24] MEDS ORDERED: LORAZEPAM 2 MG INJ IV ONE ×2 (15:30→21:00)
[2018-11-24] MEDS ORDERED: HEPARIN 1000 UNITS/ML 10 ML INJ CATHETER SCH (17:00)
[2018-11-24] MEDS: FLUCONAZOLE 100 MG/50 ML (PMX) 50 ML IVPB SCH (17:26)
[2018-11-24] MEDS: CEFEPIME 1GM/50 ML (PMX) 50 ML IVPB SCH (20:17)
[2018-11-24] MEDS: LINEZOLID 600 MG/D5W (PMX) 300 ML IVPB SCH (20:17)
[2018-11-24] MEDS: INSULIN GLARGINE [LANTus] (100 UNITS/ML) SYG SC SCH (20:18)
[2018-11-24] MEDS ORDERED: GLUCOSE GEL 15 GRAM TUBE BUCCAL PRN (20:30)
[2018-11-24] MEDS ORDERED: DEXTROSE 50% 50 ML SYRINGE IV PRN (20:30)
[2018-11-24] MEDS ORDERED: GLUCOSE GEL 15 GRAM TUBE PO PRN (20:30)
[2018-11-24] MEDS ORDERED: GLUCAGON 1 MG INJ IM PRN (20:30)
[2018-11-25] VITALS (41 sets, daily range): BP systolic 63–145; BP diastolic 40–88; PULSE 84–110; RESP 18–27
[2018-11-25] MEDS: ALBUTEROL/IPRATROPIUM (NEB) 3 ML AMP HHN SCH ×6 (01:15→20:21)
[2018-11-25] MEDS ORDERED: HALOPERIDOL 5 MG INJ IM ONE (01:30)
[2018-11-25] MEDS ORDERED: LORAZEPAM 2 MG INJ IV ONE (01:30)
[2018-11-25] MEDS: INSULIN ASPART [NOVOLOG] 3 ML PEN SC SCH ×6 (01:58→20:40)
[2018-11-25] MEDS: ACCU-CHEK XX SCH (01:58)
--- NOTE | 2018-11-25 08:11 | PN ---
DATE: 11/25/2018 SUBJECTIVE: The patient remains critically ill, on BiPAP. The patient had hemodialysis today, appro ximately 1.5 liters removed. The patient remains confused, altered. No other events noted. OBJECTIVE: VITAL SIGNS: Blood pressure is 104/52, respirations 23, pulse 91, temperature 97.3. HEENT: Head is normocephalic. NECK: Supple. HEART: Regular rate. LUNGS: Show diminished breath sounds at the base. ABDOMEN: Soft, nontender to palpation. No rebound or guarding. EXTREMITIES: Negative for clubbing, cyanosis. Positive edema. DERMATOLOGIC: No rashes. MUSCULOSKELETAL: No joint effusion. NEUROLOGIC: No change in exam. MEDICATIONS: Reviewed. LABORATORY DATA: Shows sodium 139, potassium 5.2, chloride 105, BUN 79, creatinine 3.97, calcium 8.0 , phosphorus 7.1. White count 4.8, hemoglobin 8.5, platelet count is 172. The patient's ABG was rev iewed. IMAGING STUDY: Chest x-ray was reviewed. ASSESSMENT AND PLAN: 1. Oligoanuric acute kidney injury on top of chronic kidney disease with previous baseline creatinin e of 1.5 mg/dL. Etiology of acute kidney injury is likely multifactorial secondary to hemodynamics, questionable cardiorenal syndrome, questionable hepatorenal syndrome, possible acute tubular necrosis . The patient is currently dialysis dependent due to uremia, volume overload. The patient is status post 2 sessions of hemodialysis. Plan is for a third session of dialysis today. We will dialyze fo r 3 hours 2k bath, calcium 2.5, ultrafiltrate as tolerated. We will monitor for any signs of renal r ecovery. 2. Hyperkalemia secondary to acute kidney injury. Continue dialysis on low potassium bath. 3. Volume overload. Continue ultrafiltration dialysis. 4. Mixed acid base disorder. The patient has a metabolic acidosis, respiratory acidosis. We will c ontinue dialysis on a high bicarbonate bath. 5. Mineral bone disorder, monitor calcium and phosphorus levels. Continue hemodialysis. 6. Acute respiratory failure secondary to congestive heart failure, COPD. Continue ultrafiltration dialysis. Continue BiPAP. 7. Atrial fibrillation. Continue medical management. 8. Diabetes. Continue current insulin regimen. 9. Acute encephalopathy, etiology is toxic metabolic. 10. Obesity. Continue to monitor. 11. Severe aortic stenosis. Please note I spent over 30 minutes of critical care time with this patient. Dictated By: JOCELINE MCCALLUM DO NR/NTS Conf#: [id number] DID#: [id number] CC: HARIS GREEN MD; JOCELINE MCCALLUM DO; JABIER SEBASTIAN MD;*EndCC*
[2018-11-25] MEDS: FLUTICASONE/VILANTEROL 100-25 INH SCH (08:17)
[2018-11-25] MEDS: LINEZOLID 600 MG/D5W (PMX) 300 ML IVPB SCH ×2 (08:25→20:40)
[2018-11-25] MEDS: CLOTRIMAZOLE 1% 30 GM CR TOP SCH ×2 (08:25→21:00)
--- NOTE | 2018-11-25 09:37 | CONS ---
Assessment/Plan Assessment/Plan Assessment/Plan (Daily) Chest x-ray was reviewed from today which is showing mild pulmonary edema. Patient is currently on BiPAP 20/5 21% FiO2. Backup rate of 24. Assessment recommendations; 1. Patient admitted to ICU with worsening renal function with massive anasarca, initiated on hemodialysis. 2. Persistent metabolic acidosis with poor mental status. 3. History of chronic atrial fibrillation. 4. History of diabetes 5. Sacral wound, growing multiple organisms. Patient currently on appropriate antimicrobial regimen. 6. Mild thrombocytopenia. 7. Anemia. Obtain ABG. Patient likely will need intubation. Despite the DNR status the family does not want intubation. Prognosis is guarded. Patient will need aggressive hemodialysis. Further recommendations once ABG is performed. 35 minutes of critical care time was spent evaluating the patient. Consultation Date/Type/Reason Admit Date/Time Nov 16, 2018 at 17:17 Initial Consult Date Type of Consult Pulmonary/critical care Patient's condition has taken a turn for the worse with altered mental status. Patient now has been transferred to ICU. Hemodialysis will be started shortly. Patient appears confused. But is hemodynamically stable. General exam; elderly woman, awake, agitated off and on. Requesting Provider: JABIER SEBASTIAN Date/Time of Note DATE: 11/25/18 TIME: 09:32 24 HR Interval Summary Free Text/Dictation Patient's condition is tenuous at best. Still requiring BiPAP with persistently very poor mental status. General exam; elderly woman, on BiPAP, essentially unresponsive. Mildly tachypneic. Exam/Review of Systems Exam Vitals Vital Signs Date Temp Pulse Resp B/P (MAP) Pulse Ox O2 O2 Flow FiO2 Time Delivery Rate 11/25/18 96 21 96/60 (72) 93 BIPAP 09:00 11/25/18 21 07:55 11/25/18 97.3 07:00 11/23/18 3.0 14:28 Intake and Output 11/24/18 11/24/18 11/25/18 1515:00 23:00 07:00 IntakeIntake Total 298 ml 462.5 ml 80 ml OutputOutput Total 170 ml 2500 ml 245 ml BalanceBalance 128 ml -2037.5 ml -165 ml Exam HEENT exam; supple neck, JVD difficult to see because of short neck. Patient is edentulous. On BiPAP. Chest exam; diminished breath sounds throughout. S1-S2 audible, no murmurs. Irregular rhythm. Abdomen exam; soft, mildly protuberant. No organomegaly. Bowel sounds are sluggish. Extremity exam; 3+ anasarca. GLOVE EXAMINER exam; patient is essentially unresponsive. Results Result Diagram: 11/25/18 0400 11/25/18 0400 Results 24hrs Laboratory Tests Test 11/24/18 11:37 11/24/18 16:00 11/24/18 17:27 11/24/18 20:11 Bedside Glucose 149 148 158 Activated 133.8 *H Partial Thromboplast Time Test 11/24/18 23:54 11/25/18 01:56 11/25/18 04:00 11/25/18 05:02 Activated 89.2 *H Partial Thromboplast Time Bedside Glucose 180 163 White Blood Count 4.8 Red Blood Count 3.75 L Hemoglobin 8.5 L Hematocrit 26.3 L Mean Corpuscular Volume 70.1 L Mean Corpuscular 22.7 L Hemoglobin Mean Corpuscular 32.3 Hemoglobin Concent Red Cell Distribution 19.7 H Width Platelet Count 172 Mean Platelet Volume 10.7 H Immature Granulocytes % 0.600 H Neutrophils % 88.9 H Lymphocytes % 3.6 L Monocytes % 6.9 Eosinophils % 0.0 Basophils % 0.0 Nucleated Red Blood 0.4 H Cells % Immature Granulocytes # 0.030 Neutrophils # 4.2 Lymphocytes # 0.2 L Monocytes # 0.3 Eosinophils # 0.0 Basophils # 0.0 Nucleated Red Blood 0.0 Cells # Sodium Level 139 Potassium Level 5.2 H Chloride Level 105 Carbon Dioxide Level 23 Anion Gap 11 Blood Urea Nitrogen 79 H Creatinine 3.97 H Est Glomerular Filtrat Rate mL/min Glucose Level 158 Calcium Level 8.0 L Phosphorus Level 7.1 H Magnesium Level 2.2 Test 11/25/18 08:10 11/25/18 08:24 Activated 70.3 *H Partial Thromboplast Time Bedside Glucose 143 Medications Medication Current Medications IV Flush (NS 3 ml) 3 ml PER PROTOCOL IV ; Start 11/16/18 at 19:30 Ondansetron HCl (Zofran Inj) 4 mg Q6H PRN IV NAUSEA/VOMITING; Start 11/16/18 at 19:30 Acetaminophen (Tylenol Tab) 650 mg Q6H PRN PO .PAIN 1-3 OR TEMP; Start 11/16/18 at 19:30 Acetaminophen/ Hydrocodone Bitart ([place] (5/325)) 1 tab Q6H PRN PO .MOD PAIN 4- 6 Last administered on 11/20/18 17:10; Admin Dose 1 TAB; Start 11/16/18 at 19:30 Morphine Sulfate (morphine) 2 mg Q4H PRN IV .SEVERE PAIN 7-10 Last administered on 11/18/18 00:13; Admin Dose 2 MG; Start 11/16/18 at 19:30 Docusate Sodium (Colace) 100 mg Q12H PRN PO .CONSTIPATION; Start 11/16/18 at 19:30 Zolpidem Tartrate (Ambien) 5 mg QHS PRN PO .INSOMNIA Last administered on 11/22/18 23:20; Admin Dose 5 MG; Start 11/16/18 at 19:30 Apixaban (Eliquis) 2.5 mg BID PO Last administered on 11/22/18 20:36; Admin Dose 2.5 MG; Start 11/16/18 at 21:00; Status Hold Clotrimazole (Lotrimin Cr) 1 applic BID TOP Last administered on 11/25/18 08:25; Admin Dose 1 APPLIC; Start 11/16/18 at 21:00 Digoxin (Digoxin) 0.125 mg DAILY@13 PO Last administered on 11/22/18 12:10; Admin Dose 0.125 MG; Start 11/17/18 at 13:00 Fluticasone/ Vilanterol (Breo Ellipta 100-25 Mcg Inh) 1 inh DAILY INH Last administered on 11/22/18 08:09; Admin Dose 1 INH; Start 11/17/18 at 12:00 Albuterol/ Ipratropium (Duoneb) 3 ml Q4H RESP THERAPY HHN Last administered on 11/25/18 08:05; Admin Dose 3 ML; Start 11/18/18 at 13:00 Cefepime HCl 50 ml @ 100 mls/hr Q24H IVPB Last administered on 11/24/18 20:17; Admin Dose 100 MLS/HR; Start 11/20/18 at 21:00 Insulin Glargine (Lantus) 22 units DAILY@2000 SC Last administered on 3/5/19at 20:18; Admin Dose 22 UNITS; Start 11/21/18 at 20:00 Metoprolol Tartrate (Lopressor) 5 mg Q4H PRN IV HR>110 Hold SBP<100; Start 11/23/18 at 13:00 Heparin Sodium (Porcine) 250 ml @ 10 mls/hr PER PROTOCOL IV Last administered on 11/24/18at 10:13; Admin Dose 10 MLS/HR; Start 11/24/18 at 10:04 IV Flush (NS 10 ml) 10 ml PRN PRN IV IV PROTOCOL; Start 11/24/18 at 16:00 Linezolid 300 ml @ 300 mls/hr Q12 IVPB Last administered on 11/25/18at 08:25; Admin Dose 300 MLS/HR; Start 11/24/18 at 21:00 Fluconazole/ Sodium Chloride 50 ml @ 50 mls/hr Q24H IVPB Last administered on 11/24/18at 17:26; Admin Dose 50 MLS/HR; Start 11/24/18 at 18:00 Diagnostic Test (Pha) (Accu-Chek) 1 ea 02 XX Last administered on 11/25/18at 01:58; Admin Dose 1 EA; Start 11/25/18 at 02:00 Insulin Aspart (Novolog Insulin Pen) NOVOLOG *MILD* ALGORI... Q4 SC Last administered on 11/25/18at 08:36; Admin Dose 1 UNIT; Start 11/24/18 at 21:00 Miscellaneous Information 1 ea NOTE XX ; Start 11/24/18 at 20:30 Glucose (Glutose) 15 gm Q15M PRN PO DECREASED GLUCOSE; Start 11/24/18 at 20:30 Glucose (Glutose) 22.5 gm Q15M PRN PO DECREASED GLUCOSE; Start 11/24/18 at 20:30 Dextrose (D50w Syringe) 25 ml Q15M PRN IV DECREASED GLUCOSE; Start 11/24/18 at 20:30 Dextrose (D50w Syringe) 50 ml Q15M PRN IV DECREASED GLUCOSE; Start 11/24/18 at 20:30 Glucagon (Glucagen) 1 mg Q15M PRN IM DECREASED GLUCOSE; Start 11/24/18 at 20:30 Glucose (Glutose) 15 gm Q15M PRN BUCCAL DECREASED GLUCOSE; Start 11/24/18 at 20:30 ZACH HEALY Nov 25, 2018 09:37
--- NOTE | 2018-11-25 09:56 | PN ---
Date/Time of Note Date/Time of Note DATE: 11/25/18 TIME: 09:51 Assessment/Plan VTE Prophylaxis Risk score (from Nsg)>0 risk: 12 SCD applied (from Nsg): Yes Pharmacological prophylaxis: heparin Lines/Catheters IV Catheter Type (from Nrsg): PICC Line Central line still needed: Yes Urinary Cath still in place: Yes Reason Cath still needed: urinary retention Assessment/Plan Hospital Course 83 yo female with , diastolic CHF with acute respiratory failure and volume overload from CHF and BRIE. Worseniing hemodynamics and encephelopathy. Gravely ill. Daughter Mansi now agrees to DNI/DNR and palliative measures to be started this afternoon when she is able to make it to the hospital. - Will continue antibiotics and HD today until daughter can make it to the hospital - Continue HF oxygen A Fib: ESRD Cirrhosis Septic encephelopathy Sepsis DNR/DNI - Transition to comfort care following her daughter Mansi coming to the hospital to be with her mother Result Diagram: 11/25/18 0400 11/25/18 0400 Results 24hrs Laboratory Tests Test 11/24/18 11:37 11/24/18 16:00 11/24/18 17:27 11/24/18 20:11 Bedside Glucose 149 148 158 Activated 133.8 *H Partial Thromboplast Time Test 11/24/18 23:54 11/25/18 01:56 11/25/18 04:00 11/25/18 05:02 Activated 89.2 *H Partial Thromboplast Time Bedside Glucose 180 163 White Blood Count 4.8 Red Blood Count 3.75 L Hemoglobin 8.5 L Hematocrit 26.3 L Mean Corpuscular Volume 70.1 L Mean Corpuscular 22.7 L Hemoglobin Mean Corpuscular 32.3 Hemoglobin Concent Red Cell Distribution 19.7 H Width Platelet Count 172 Mean Platelet Volume 10.7 H Immature Granulocytes % 0.600 H Neutrophils % 88.9 H Lymphocytes % 3.6 L Monocytes % 6.9 Eosinophils % 0.0 Basophils % 0.0 Nucleated Red Blood 0.4 H Cells % Immature Granulocytes # 0.030 Neutrophils # 4.2 Lymphocytes # 0.2 L Monocytes # 0.3 Eosinophils # 0.0 Basophils # 0.0 Nucleated Red Blood 0.0 Cells # Sodium Level 139 Potassium Level 5.2 H Chloride Level 105 Carbon Dioxide Level 23 Anion Gap 11 Blood Urea Nitrogen 79 H Creatinine 3.97 H Est Glomerular Filtrat Rate mL/min Glucose Level 158 Calcium Level 8.0 L Phosphorus Level 7.1 H Magnesium Level 2.2 Test 11/25/18 08:10 11/25/18 08:24 Activated 70.3 *H Partial Thromboplast Time Bedside Glucose 143 Subjective 24 Hr Interval Summary Free Text/Dictation Patient remains critically ill. In respiratory failure, kidney failure, heart failure, and encephelopathic. I discussed grave state of illness with her daughter Mansi. We agreed that intubation would not be in accordance with the patient's goals of care and would just prolong suffering. Mansi says her primary goals is she doesn't want her mom to suffer. Thus patient is now DNR and DNI. Mansi will come to the hospital later today and at this point we can initiated comfort measures. Exam/Review of Systems Exam Vitals Vital Signs Date Temp Pulse Resp B/P (MAP) Pulse Ox O2 O2 Flow FiO2 Time Delivery Rate 11/25/18 96 21 96/60 (72) 93 BIPAP 09:00 11/25/18 21 07:55 11/25/18 97.3 07:00 11/23/18 3.0 14:28 Intake and Output 11/24/18 11/24/18 11/25/18 1515:00 23:00 07:00 IntakeIntake Total 298 ml 462.5 ml 80 ml OutputOutput Total 170 ml 2500 ml 245 ml BalanceBalance 128 ml -2037.5 ml -165 ml Exam Encephelopathic, nonresponsive On bipap, tahcypneic when taken off Tachy, regular Rhonchi bilaterally Soft nt nd ++ JVD Results Results 24hrs Laboratory Tests Test 11/24/18 11:37 11/24/18 16:00 11/24/18 17:27 11/24/18 20:11 Bedside Glucose 149 148 158 Activated 133.8 *H Partial Thromboplast Time Test 11/24/18 23:54 11/25/18 01:56 11/25/18 04:00 11/25/18 05:02 Activated 89.2 *H Partial Thromboplast Time Bedside Glucose 180 163 White Blood Count 4.8 Red Blood Count 3.75 L Hemoglobin 8.5 L Hematocrit 26.3 L Mean Corpuscular Volume 70.1 L Mean Corpuscular 22.7 L Hemoglobin Mean Corpuscular 32.3 Hemoglobin Concent Red Cell Distribution 19.7 H Width Platelet Count 172 Mean Platelet Volume 10.7 H Immature Granulocytes % 0.600 H Neutrophils % 88.9 H Lymphocytes % 3.6 L Monocytes % 6.9 Eosinophils % 0.0 Basophils % 0.0 Nucleated Red Blood 0.4 H Cells % Immature Granulocytes # 0.030 Neutrophils # 4.2 Lymphocytes # 0.2 L Monocytes # 0.3 Eosinophils # 0.0 Basophils # 0.0 Nucleated Red Blood 0.0 Cells # Sodium Level 139 Potassium Level 5.2 H Chloride Level 105 Carbon Dioxide Level 23 Anion Gap 11 Blood Urea Nitrogen 79 H Creatinine 3.97 H Est Glomerular Filtrat Rate mL/min Glucose Level 158 Calcium Level 8.0 L Phosphorus Level 7.1 H Magnesium Level 2.2 Test 11/25/18 08:10 11/25/18 08:24 Activated 70.3 *H Partial Thromboplast Time Bedside Glucose 143 Medications Medication Current Medications IV Flush (NS 3 ml) 3 ml PER PROTOCOL IV ; Start 11/16/18 at 19:30 Ondansetron HCl (Zofran Inj) 4 mg Q6H PRN IV NAUSEA/VOMITING; Start 11/16/18 at 19:30 Acetaminophen (Tylenol Tab) 650 mg Q6H PRN PO .PAIN 1-3 OR TEMP; Start 11/16/18 at 19:30 Acetaminophen/ Hydrocodone Bitart ([place] (5/325)) 1 tab Q6H PRN PO .MOD PAIN 4- 6 Last administered on 11/20/18at 17:10; Admin Dose 1 TAB; Start 11/16/18 at 19:30 Morphine Sulfate (morphine) 2 mg Q4H PRN IV .SEVERE PAIN 7-10 Last administered on 11/18/18at 00:13; Admin Dose 2 MG; Start 11/16/18 at 19:30 Docusate Sodium (Colace) 100 mg Q12H PRN PO .CONSTIPATION; Start 11/16/18 at 19:30 Zolpidem Tartrate (Ambien) 5 mg QHS PRN PO .INSOMNIA Last administered on 11/22/18at 23:20; Admin Dose 5 MG; Start 11/16/18 at 19:30 Apixaban (Eliquis) 2.5 mg BID PO Last administered on 11/22/18 20:36; Admin Dose 2.5 MG; Start 11/16/18 at 21:00; Status Hold Clotrimazole (Lotrimin Cr) 1 applic BID TOP Last administered on 11/25/18 08:25; Admin Dose 1 APPLIC; Start 11/16/18 at 21:00 Digoxin (Digoxin) 0.125 mg DAILY@13 PO Last administered on 11/22/18 12:10; Admin Dose 0.125 MG; Start 11/17/18 at 13:00 Fluticasone/ Vilanterol (Breo Ellipta 100-25 Mcg Inh) 1 inh DAILY INH Last administered on 11/22/18 08:09; Admin Dose 1 INH; Start 11/17/18 at 12:00 Albuterol/ Ipratropium (Duoneb) 3 ml Q4H RESP THERAPY HHN Last administered on 11/25/18 08:05; Admin Dose 3 ML; Start 11/18/18 at 13:00 Cefepime HCl 50 ml @ 100 mls/hr Q24H IVPB Last administered on 11/24/18 20:17; Admin Dose 100 MLS/HR; Start 11/20/18 at 21:00 Insulin Glargine (Lantus) 22 units DAILY@2000 SC Last administered on 11/24/18 20:18; Admin Dose 22 UNITS; Start 11/21/18 at 20:00 Metoprolol Tartrate (Lopressor) 5 mg Q4H PRN IV HR>110 Hold SBP<100; Start 11/23/18 at 13:00 Heparin Sodium (Porcine) 250 ml @ 10 mls/hr PER PROTOCOL IV Last administered on 11/24/18 10:13; Admin Dose 10 MLS/HR; Start 11/24/18 at 10:04 IV Flush (NS 10 ml) 10 ml PRN PRN IV IV PROTOCOL; Start 11/24/18 at 16:00 Linezolid 300 ml @ 300 mls/hr Q12 IVPB Last administered on 11/25/18 08:25; Admin Dose 300 MLS/HR; Start 11/24/18 at 21:00 Fluconazole/ Sodium Chloride 50 ml @ 50 mls/hr Q24H IVPB Last administered on 11/24/18 17:26; Admin Dose 50 MLS/HR; Start 11/24/18 at 18:00 Diagnostic Test (Pha) (Accu-Chek) 1 ea 02 XX Last administered on 11/25/18at 01:58; Admin Dose 1 EA; Start 11/25/18 at 02:00 Insulin Aspart (Novolog Insulin Pen) NOVOLOG *MILD* ALGORI... Q4 SC Last administered on 11/25/18at 08:36; Admin Dose 1 UNIT; Start 11/24/18 at 21:00 Miscellaneous Information 1 ea NOTE XX ; Start 11/24/18 at 20:30 Glucose (Glutose) 15 gm Q15M PRN PO DECREASED GLUCOSE; Start 11/24/18 at 20:30 Glucose (Glutose) 22.5 gm Q15M PRN PO DECREASED GLUCOSE; Start 11/24/18 at 20:30 Dextrose (D50w Syringe) 25 ml Q15M PRN IV DECREASED GLUCOSE; Start 11/24/18 at 20:30 Dextrose (D50w Syringe) 50 ml Q15M PRN IV DECREASED GLUCOSE; Start 11/24/18 at 20:30 Glucagon (Glucagen) 1 mg Q15M PRN IM DECREASED GLUCOSE; Start 11/24/18 at 20:30 Glucose (Glutose) 15 gm Q15M PRN BUCCAL DECREASED GLUCOSE; Start 11/24/18 at 20:30 HARIS GREEN MD Nov 25, 2018 09:56
--- NOTE | 2018-11-25 10:16 | CONS ---
Assessment/Plan Assessment/Plan Hospital Course (Demo Recall) IMP: 1.AF with mild RVR 2.Renal failure 3.hyperkalemia 4.Bradycardia 5.CHF-diastolic acute on chronic EF 50% by echo this admit 6.HTN 7.-mod to severe by echo 08/09 Recc: -ICU -Now DNI -Dose IVP digoxin -Will give IVP PRN BB Consultation Date/Type/Reason Admit Date/Time Nov 16, 2018 at 17:17 Initial Consult Date 11/20/18 Type of Consult Cardiology Reason for Consultation AF Requesting Provider: JABIER SEBASTIAN Date/Time of Note DATE: 11/25/18 TIME: 10:11 Exam/Review of Systems Vital Signs Vitals Vital Signs Date Temp Pulse Resp B/P (MAP) Pulse Ox O2 O2 Flow FiO2 Time Delivery Rate 11/25/18 96 21 96/60 (72) 93 BIPAP 09:00 11/25/18 21 07:55 11/25/18 97.3 07:00 11/23/18 3.0 14:28 Intake and Output 11/24/18 11/24/18 11/25/18 1515:00 23:00 07:00 IntakeIntake Total 298 ml 462.5 ml 80 ml OutputOutput Total 170 ml 2500 ml 245 ml BalanceBalance 128 ml -2037.5 ml -165 ml Exam Exam Review of Systems: CONSTITUTIONAL: No fevers, chills. PULMONARY: No sob CARDIOVASCULAR: No chest pain/palpitations GASTROINTESTINAL: No nausea/vomiting. GENITOURINARY: No hematuria/dysuria. MUSCULOSKELETAL: No myagias/arthalgias. PSYCHIATRIC: The patient denies depression. NEUROLOGIC: No weakness Constitutional: alert Psych: no complaints Head: normocephalic ENMT: mucosa pink and moist Neck: supple, jvd (9 cm water) Respiratory: diminished breath sounds Cardiovascular: regular rate and rhythm Gastrointestinal: soft, non-tender Musculoskeletal: muscle tone (normal) Extremities: edema (none) Neurological: other (No focal deficits) Labs Result Diagram: 11/25/18 0400 11/25/18 0400 Results 24hrs Laboratory Tests Test 11/24/18 11:37 11/24/18 16:00 11/24/18 17:27 11/24/18 20:11 Bedside Glucose 149 148 158 Activated 133.8 *H Partial Thrombopla st Time Test 11/24/18 23:54 11/25/18 01:56 11/25/18 04:00 11/25/18 05:02 Activated 89.2 *H Partial Thrombopla st Time Bedside Glucose 180 163 White Blood Count 4.8 Red Blood Count 3.75 L Hemoglobin 8.5 L Hematocrit 26.3 L Mean Corpuscular 70.1 L Volume Mean Corpuscular 22.7 L Hemoglobin Mean Corpuscular 32.3 Hemoglobin Concent Red Cell 19.7 H Distribution Width Platelet Count 172 Mean Platelet 10.7 H Volume Immature 0.600 H Granulocytes % Neutrophils % 88.9 H Lymphocytes % 3.6 L Monocytes % 6.9 Eosinophils % 0.0 Basophils % 0.0 Nucleated Red 0.4 H Blood Cells % Immature 0.030 Granulocytes # Neutrophils # 4.2 Lymphocytes # 0.2 L Monocytes # 0.3 Eosinophils # 0.0 Basophils # 0.0 Nucleated Red 0.0 Blood Cells # Sodium Level 139 Potassium Level 5.2 H Chloride Level 105 Carbon Dioxide 23 Level Anion Gap 11 Blood Urea 79 H Nitrogen Creatinine 3.97 H Est Glomerular Filtrat Rate mL/min Glucose Level 158 Calcium Level 8.0 L Phosphorus Level 7.1 H Magnesium Level 2.2 Test 11/25/18 08:10 11/25/18 08:24 11/25/18 09:18 Activated 70.3 *H Partial Thrombopla st Time Bedside Glucose 143 Blood Gas Specimen Blood arterial Source Arterial Blood 11/25/2018 9:35:44 Date Drawn AM Arterial Blood pH 7.371 (Temp corrected) Arterial Blood 37.7 pCO2 (Temp correct) Arterial Blood pO2 73.4 L (Temp corrected) Arterial Blood 21.4 L HCO3 Arterial Blood -3.5 L Base Excess Arterial Blood 93.1 L Oxygen Saturation John Test ACCEPTAB Arterial Blood Gas Right Radial Puncture Site Arterial 0.3 Blood Carboxyhemog lobin Arterial Blood 0.3 Methemoglobin Blood Gas A-a O2 31.2 H Differential Oxyhemoglobin 92.5 L Percent Blood Gas 37.0 Temperature Blood Gas 24.0 Respiration Rate Blood Gas Actual 36 Respiration Rate Blood Gas Modality MASK - BIPAP FiO2 21.0 Blood Gas Pressure 15 Support Blood Gas Notified TM Whom Blood Gas Notified 11/25/2018 10:00:28 Time AM Medications Medications Current Medications IV Flush (NS 3 ml) 3 ml PER PROTOCOL IV ; Start 11/16/18 at 19:30 Ondansetron HCl (Zofran Inj) 4 mg Q6H PRN IV NAUSEA/VOMITING; Start 11/16/18 at 19:30 Acetaminophen (Tylenol Tab) 650 mg Q6H PRN PO .PAIN 1-3 OR TEMP; Start 11/16/18 at 19:30 Acetaminophen/ Hydrocodone Bitart ([place] (5/325)) 1 tab Q6H PRN PO .MOD PAIN 4- 6 Last administered on 11/20/18 17:10; Admin Dose 1 TAB; Start 11/16/18 at 19:30 Morphine Sulfate (morphine) 2 mg Q4H PRN IV .SEVERE PAIN 7-10 Last administered on 11/18/18 00:13; Admin Dose 2 MG; Start 11/16/18 at 19:30 Docusate Sodium (Colace) 100 mg Q12H PRN PO .CONSTIPATION; Start 11/16/18 at 19:30 Zolpidem Tartrate (Ambien) 5 mg QHS PRN PO .INSOMNIA Last administered on 11/22/18 23:20; Admin Dose 5 MG; Start 11/16/18 at 19:30 Apixaban (Eliquis) 2.5 mg BID PO Last administered on 11/22/18 20:36; Admin Dose 2.5 MG; Start 11/16/18 at 21:00; Status Hold Clotrimazole (Lotrimin Cr) 1 applic BID TOP Last administered on 11/25/18 08:25; Admin Dose 1 APPLIC; Start 11/16/18 at 21:00 Digoxin (Digoxin) 0.125 mg DAILY@13 PO Last administered on 11/22/18 12:10; Admin Dose 0.125 MG; Start 11/17/18 at 13:00 Fluticasone/ Vilanterol (Breo Ellipta 100-25 Mcg Inh) 1 inh DAILY INH Last administered on 11/22/18 08:09; Admin Dose 1 INH; Start 11/17/18 at 12:00 Albuterol/ Ipratropium (Duoneb) 3 ml Q4H RESP THERAPY HHN Last administered on 11/25/18 08:05; Admin Dose 3 ML; Start 11/18/18 at 13:00 Cefepime HCl 50 ml @ 100 mls/hr Q24H IVPB Last administered on 11/24/18at 20:17; Admin Dose 100 MLS/HR; Start 11/20/18 at 21:00 Insulin Glargine (Lantus) 22 units DAILY@2000 SC Last administered on 11/24/18 20:18; Admin Dose 22 UNITS; Start 11/21/18 at 20:00 Metoprolol Tartrate (Lopressor) 5 mg Q4H PRN IV HR>110 Hold SBP<100; Start 11/23/18 at 13:00 Heparin Sodium (Porcine) 250 ml @ 10 mls/hr PER PROTOCOL IV Last administered on 11/24/18at 10:13; Admin Dose 10 MLS/HR; Start 11/24/18 at 10:04 IV Flush (NS 10 ml) 10 ml PRN PRN IV IV PROTOCOL; Start 11/24/18 at 16:00 Linezolid 300 ml @ 300 mls/hr Q12 IVPB Last administered on 11/25/18at 08:25; Admin Dose 300 MLS/HR; Start 11/24/18 at 21:00 Fluconazole/ Sodium Chloride 50 ml @ 50 mls/hr Q24H IVPB Last administered on 11/24/18 17:26; Admin Dose 50 MLS/HR; Start 11/24/18 at 18:00 Diagnostic Test (Pha) (Accu-Chek) 1 ea 02 XX Last administered on 11/25/18at 01:58; Admin Dose 1 EA; Start 11/25/18 at 02:00 Insulin Aspart (Novolog Insulin Pen) NOVOLOG *MILD* ALGORI... Q4 SC Last administered on 11/25/18at 08:36; Admin Dose 1 UNIT; Start 11/24/18 at 21:00 Miscellaneous Information 1 ea NOTE XX ; Start 11/24/18 at 20:30 Glucose (Glutose) 15 gm Q15M PRN PO DECREASED GLUCOSE; Start 11/24/18 at 20:30 Glucose (Glutose) 22.5 gm Q15M PRN PO DECREASED GLUCOSE; Start 11/24/18 at 20:30 Dextrose (D50w Syringe) 25 ml Q15M PRN IV DECREASED GLUCOSE; Start 11/24/18 at 20:30 Dextrose (D50w Syringe) 50 ml Q15M PRN IV DECREASED GLUCOSE; Start 11/24/18 at 20:30 Glucagon (Glucagen) 1 mg Q15M PRN IM DECREASED GLUCOSE; Start 11/24/18 at 20:30 Glucose (Glutose) 15 gm Q15M PRN BUCCAL DECREASED GLUCOSE; Start 11/24/18 at 20:30 GHASSAN SHERMAN Nov 25, 2018 10:16
[2018-11-25] MEDS ORDERED: DIGOXIN 500 MCG INJ IV ONE (11:00)
--- NOTE | 2018-11-25 13:03 | CONS ---
Assessment/Plan Assessment/Plan Hospital Course (Demo Recall) Comfortable on nasal cannula, mildly hypothermic with a temperature of 97, awake, in no distress. WBC 4.8 H&H 8.5 and 26.3 platelets 172 neutrophils 88.9 Chest x-ray this morning revealed interval decrease in perihilar left upper lobe infiltrates. Stable patchy perihilar infiltrates in the right lung with small right pleural effusion Indwelling: Right femoral Noel, Soto catheter. PICC Antimicrobials: Zyvox cefepime, Diflucan Physical examination: Well-developed morbidly obese -Citizen Of [place] woman who in no distress. Head atraumatic normocephalic sclera nonicteric. Neck is s upple. Chest rise symmetrical breath sounds diminished to bases. Heart: S1-S2.. Abdomen obese soft, bowel sounds present. Extremities: Bilateral lower extremities edema erythema and multiple wounds Assessment: 1. Acute hypoxemic respiratory failure secondary to pulmonary edema and CHF exacerbation, poss PNA 2. Sepsis, present on admission 3. 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 Urinary tract infection 5. Staph bacteremia consistent with contaminant 6. Morbid obesity 7. Atrial fibrillation 8. Diabetes 9. Acute kidney failure Plan: Patient is doing better, comfortable on nasal cannula, continue antibiotics, local wound care, f/u pulmonary/renal rec-s [facility] staff Consultation Date/Type/Reason Admit Date/Time Nov 16, 2018 at 17:17 Initial Consult Date Type of Consult id Requesting Provider: JABIER SEBASTIAN Date/Time of Note DATE: 11/25/18 TIME: 13:02 Exam/Review of Systems Exam Vitals Vital Signs Date Temp Pulse Resp B/P (MAP) Pulse Ox O2 O2 Flow FiO2 Time Delivery Rate 11/25/18 96 21 95 Nasal 2.0 28 12:20 Cannula 11/25/18 97.0 117/40 12:00 (65) Intake and Output 11/24/18 11/24/18 11/25/18 1515:00 23:00 07:00 IntakeIntake Total 298 ml 462.5 ml 80 ml OutputOutput Total 170 ml 2500 ml 245 ml BalanceBalance 128 ml -2037.5 ml -165 ml Results Result Diagram: 11/25/18 0400 11/25/18 0400 Results 24hrs Laboratory Tests Test 11/24/18 16:00 3/5/19 17:27 11/24/18 20:11 11/24/18 23:54 Activated 133.8 *H 89.2 *H Partial Thrombopla st Time Bedside Glucose 148 158 Test 11/25/18 01:56 11/25/18 04:00 11/25/18 05:02 11/25/18 08:10 Bedside Glucose 180 163 White Blood Count 4.8 Red Blood Count 3.75 L Hemoglobin 8.5 L Hematocrit 26.3 L Mean Corpuscular 70.1 L Volume Mean Corpuscular 22.7 L Hemoglobin Mean Corpuscular 32.3 Hemoglobin Concent Red Cell 19.7 H Distribution Width Platelet Count 172 Mean Platelet 10.7 H Volume Immature 0.600 H Granulocytes % Neutrophils % 88.9 H Lymphocytes % 3.6 L Monocytes % 6.9 Eosinophils % 0.0 Basophils % 0.0 Nucleated Red 0.4 H Blood Cells % Immature 0.030 Granulocytes # Neutrophils # 4.2 Lymphocytes # 0.2 L Monocytes # 0.3 Eosinophils # 0.0 Basophils # 0.0 Nucleated Red 0.0 Blood Cells # Sodium Level 139 Potassium Level 5.2 H Chloride Level 105 Carbon Dioxide 23 Level Anion Gap 11 Blood Urea 79 H Nitrogen Creatinine 3.97 H Est Glomerular Filtrat Rate mL/min Glucose Level 158 Calcium Level 8.0 L Phosphorus Level 7.1 H Magnesium Level 2.2 Activated 70.3 *H Partial Thrombopla st Time Test 11/25/18 08:24 11/25/18 09:18 11/25/18 12:20 11/25/18 12:58 Bedside Glucose 143 123 104 Blood Gas Specimen Blood arterial Source Arterial Blood 11/25/2018 9:35:44 Date Drawn AM Arterial Blood pH 7.371 (Temp corrected) Arterial Blood 37.7 pCO2 (Temp correct) Arterial Blood pO2 73.4 L (Temp corrected) Arterial Blood 21.4 L HCO3 Arterial Blood -3.5 L Base Excess Arterial Blood 93.1 L Oxygen Saturation John Test ACCEPTAB Arterial Blood Gas Right Radial Puncture Site Arterial 0.3 Blood Carboxyhemog lobin Arterial Blood 0.3 Methemoglobin Blood Gas A-a O2 31.2 H Differential Oxyhemoglobin 92.5 L Percent Blood Gas 37.0 Temperature Blood Gas 24.0 Respiration Rate Blood Gas Actual 36 Respiration Rate Blood Gas Modality MASK - BIPAP FiO2 21.0 Blood Gas Pressure 15 Support Blood Gas Notified TM Whom Blood Gas Notified 11/25/2018 10:00:28 Time AM Medications Medication Current Medications IV Flush (NS 3 ml) 3 ml PER PROTOCOL IV ; Start 11/16/18 at 19:30 Ondansetron HCl (Zofran Inj) 4 mg Q6H PRN IV NAUSEA/VOMITING; Start 11/16/18 at 19:30 Acetaminophen (Tylenol Tab) 650 mg Q6H PRN PO .PAIN 1-3 OR TEMP; Start 11/16/18 at 19:30 Acetaminophen/ Hydrocodone Bitart ([place] (5/325)) 1 tab Q6H PRN PO .MOD PAIN 4- 6 Last administered on 11/20/18 17:10; Admin Dose 1 TAB; Start 11/16/18 at 19:30 Morphine Sulfate (morphine) 2 mg Q4H PRN IV .SEVERE PAIN 7-10 Last administered on 11/18/18 00:13; Admin Dose 2 MG; Start 11/16/18 at 19:30 Docusate Sodium (Colace) 100 mg Q12H PRN PO .CONSTIPATION; Start 11/16/18 at 19:30 Zolpidem Tartrate (Ambien) 5 mg QHS PRN PO .INSOMNIA Last administered on 11/22/18 23:20; Admin Dose 5 MG; Start 11/16/18 at 19:30 Apixaban (Eliquis) 2.5 mg BID PO Last administered on 11/22/18 20:36; Admin Dose 2.5 MG; Start 11/16/18 at 21:00; Status Hold Clotrimazole (Lotrimin Cr) 1 applic BID TOP Last administered on 11/25/18 08:25; Admin Dose 1 APPLIC; Start 11/16/18 at 21:00 Fluticasone/ Vilanterol (Breo Ellipta 100-25 Mcg Inh) 1 inh DAILY INH Last administered on 11/22/18 08:09; Admin Dose 1 INH; Start 11/17/18 at 12:00 Albuterol/ Ipratropium (Duoneb) 3 ml Q4H RESP THERAPY HHN Last administered on 11/25/18 12:19; Admin Dose 3 ML; Start 11/18/18 at 13:00 Cefepime HCl 50 ml @ 100 mls/hr Q24H IVPB Last administered on 11/24/18 20:17; Admin Dose 100 MLS/HR; Start 11/20/18 at 21:00 Insulin Glargine (Lantus) 22 units DAILY@2000 SC Last administered on 11/24/18 20:18; Admin Dose 22 UNITS; Start 11/21/18 at 20:00 Metoprolol Tartrate (Lopressor) 5 mg Q4H PRN IV HR>110 Hold SBP<100; Start 11/23/18 at 13:00 Heparin Sodium (Porcine) 250 ml @ 10 mls/hr PER PROTOCOL IV Last administered on 11/24/18 10:13; Admin Dose 10 MLS/HR; Start 11/24/18 at 10:04 IV Flush (NS 10 ml) 10 ml PRN PRN IV IV PROTOCOL; Start 11/24/18 at 16:00 Linezolid 300 ml @ 300 mls/hr Q12 IVPB Last administered on 11/25/18 08:25; Admin Dose 300 MLS/HR; Start 11/24/18 at 21:00 Fluconazole/ Sodium Chloride 50 ml @ 50 mls/hr Q24H IVPB Last administered on 11/24/18 17:26; Admin Dose 50 MLS/HR; Start 11/24/18 at 18:00 Diagnostic Test (Pha) (Accu-Chek) 1 ea 02 XX Last administered on 11/25/18at 01:58; Admin Dose 1 EA; Start 11/25/18 at 02:00 Insulin Aspart (Novolog Insulin Pen) NOVOLOG *MILD* ALGORI... Q4 SC Last administered on 11/25/18at 08:36; Admin Dose 1 UNIT; Start 11/24/18 at 21:00 Miscellaneous Information 1 ea NOTE XX ; Start 11/24/18 at 20:30 Glucose (Glutose) 15 gm Q15M PRN PO DECREASED GLUCOSE; Start 11/24/18 at 20:30 Glucose (Glutose) 22.5 gm Q15M PRN PO DECREASED GLUCOSE; Start 11/24/18 at 20:30 Dextrose (D50w Syringe) 25 ml Q15M PRN IV DECREASED GLUCOSE; Start 11/24/18 at 20:30 Dextrose (D50w Syringe) 50 ml Q15M PRN IV DECREASED GLUCOSE; Start 11/24/18 at 20:30 Glucagon (Glucagen) 1 mg Q15M PRN IM DECREASED GLUCOSE; Start 11/24/18 at 20:30 Glucose (Glutose) 15 gm Q15M PRN BUCCAL DECREASED GLUCOSE; Start 11/24/18 at 20:30 ROCHELLE STERLING NP Nov 25, 2018 13:03
[2018-11-25] MEDS: FLUCONAZOLE 100 MG/50 ML (PMX) 50 ML IVPB SCH (17:53)
[2018-11-25] MEDS: HEPARIN 25000 UNITS/250 ML 250 ML IV SCH (18:49)
[2018-11-25] MEDS: INSULIN GLARGINE [LANTus] (100 UNITS/ML) SYG SC SCH (20:00)
[2018-11-25] MEDS: CEFEPIME 1GM/50 ML (PMX) 50 ML IVPB SCH (20:40)
[2018-11-25] MEDS: DEXTROSE 50% 50 ML SYRINGE IV PRN (20:44)
[2018-11-25] MEDS: morphine 2 MG INJ IV PRN (21:19)
[2018-11-26] VITALS (25 sets, daily range): BP systolic 109–146; BP diastolic 56–87; PULSE 94–111; RESP 20–29
[2018-11-26] MEDS: INSULIN ASPART [NOVOLOG] 3 ML PEN SC SCH ×6 (01:00→20:09)
[2018-11-26] MEDS: ALBUTEROL/IPRATROPIUM (NEB) 3 ML AMP HHN SCH ×6 (01:50→21:17)
[2018-11-26] MEDS: ACCU-CHEK XX SCH (02:42)
[2018-11-26] MEDS: morphine 2 MG INJ IV PRN (02:43)
[2018-11-26] MEDS: LINEZOLID 600 MG/D5W (PMX) 300 ML IVPB SCH (08:21)
[2018-11-26] MEDS: CLOTRIMAZOLE 1% 30 GM CR TOP SCH ×2 (08:22→22:31)
[2018-11-26] MEDS: FLUTICASONE/VILANTEROL 100-25 INH SCH (08:25)
--- NOTE | 2018-11-26 09:06 | PN ---
DATE: 11/26/2018 SUBJECTIVE: The patient had hemodialysis yesterday, tolerated well, approximately 2 liters removed. The patient remains confused, off BiPAP. No other events noted. OBJECTIVE: VITAL SIGNS: Blood pressure is 141/61, pulse 109, respirations 20, temperature 97.0. HEENT: Head is normocephalic. NECK: Supple. HEART: Regular rate. LUNGS: Show diminished breath sounds at the base. ABDOMEN: Soft, nontender to palpation without rebound or guarding. EXTREMITIES: Negative for clubbing, cyanosis. Positive for edema. DERMATOLOGIC: No rashes. MUSCULOSKELETAL: No joint effusion. NEUROLOGIC: No change in exam. LABORATORY DATA: Shows white count 6.7, hemoglobin 9.3, platelet count 137. Sodium 138, potassium 4 .6, BUN 56, creatinine 3.07, phosphorus 5.7, calcium 8.1. ASSESSMENT AND PLAN: 1. Oliguric acute kidney injury on top of chronic kidney disease with a previous baseline creatinine of 1.5 mg/dL. Etiology of acute kidney injury is multifactorial secondary to hemodynamics, possible cardiorenal syndrome, questionable HRS, possible acute tubular necrosis. The patient is currently d ialysis dependent, status post 3 sessions of dialysis. Urinary output has improved overnight. . Co ntinue intermittent dialysis as needed. Anticipate hemodialysis tomorrow. Monitor for signs of sophia l recovery. 2. Hypokalemia secondary to acute kidney injury, improved. Continue dialysis on low potassium bath. 2. Volume overload. Continue ultrafiltration dialysis. Continue to monitor. 3. Mixed acid base disorder. The patient's acidosis is improving. Continue hemodialysis on a high bicarbonate bath. 4. Mineral bone disorder, monitor calcium and phosphorus levels. 5. Acute respiratory failure secondary to congestive heart failure, volume overload, COPD. Continue medical management. The patient is currently on BiPAP. 6. Atrial fibrillation. Continue medical management. 7. Diabetes. Continue current insulin regimen. 8. Acute encephalopathy, etiology is toxic metabolic. 9. Obesity. Continue dietary modification. 10. Severe aortic stenosis. Continue to monitor. Dictated By: JOCELINE MCCALLUM DO NR/NTS Conf#: [id number] DID#: [id number] CC: JABIER SEBASTIAN MD; JOCELINE MCCALLUM DO; HARIS GREEN MD;*[facility]*
--- NOTE | 2018-11-26 09:30 | CONS ---
Assessment/Plan Assessment/Plan Assessment/Plan (Daily) Assessment recommendations; 1. Patient admitted to ICU with severe hypoxemic respiratory failure due to acute renal failure with CHF exacerbation with significant interval improvement after initiated on hemodialysis. 2. Sacral wound, growing multiple organisms. Patient currently on appropriate antimicrobial regimen. 3. Acute encephalopathy, markedly improved. 4. History of chronic atrial fibrillation. 5. History of diabetes. 6. History of hypertension. 7. Mild anemia and thrombocytopenia. Continue current supportive care. Consider transfer to medical floor. Hemodialysis per top collar baster. Antibiotics per ID recommendations. Consultation Date/Type/Reason Admit Date/Time Nov 16, 2018 at 17:17 Initial Consult Date Type of Consult Pulmonary/critical care Patient's condition has taken a turn for the worse with altered mental status. Patient now has been transferred to ICU. Hemodialysis will be started shortly. Patient appears confused. But is hemodynamically stable. General exam; elderly woman, awake, agitated off and on. Requesting Provider: JABIER SEBASTIAN Date/Time of Note DATE: 11/26/18 TIME: 09:27 24 HR Interval Summary Free Text/Dictation Patient's condition has significantly improved over the last 24 hours with marked improvement in mental status. Patient also showing improving hypoxemia now weaned down to 2 L nasal cannula. General exam; elderly female, awake, and appropriately responsive. Currently no distress. Exam/Review of Systems Exam Vitals Vital Signs Date Temp Pulse Resp B/P (MAP) Pulse Ox O2 O2 Flow FiO2 Time Delivery Rate 11/26/18 94 25 137/66 98 Nasal 08:00 (89) Cannula 11/26/18 2.0 07:43 11/26/18 97.0 07:00 11/26/18 28 02:27 Intake and Output 11/25/18 11/25/18 11/26/18 1515:00 23:00 07:00 IntakeIntake Total 345 ml 10 ml 6 ml OutputOutput Total 195 ml 2465 ml 140 ml BalanceBalance 150 ml -2455 ml -134 ml Exam H EENT exam; supple neck, positive JVD. No lymphadenopathy. Midline trachea. No thyromegaly. Patient is edentulous. Chest exam; diminished breath sounds bilaterally. S1-S2 audible, irregular rhythm. No murmurs. Abdomen exam; soft, nontender. No organomegaly. Bowel sounds audible. Extremity exam; 2+ edema. SENIOR SOFTWARE MANAGER exam; no focal motor deficit. Results Result Diagram: 11/26/18 0350 11/26/18 0350 Results 24hrs Laboratory Tests Test 11/25/18 12:20 11/25/18 12:58 11/25/18 14:08 11/25/18 16:42 Bedside Glucose 123 104 71 Activated 57.9 H Partial Thromboplast Time Test 11/25/18 20:17 11/25/18 20:39 11/25/18 21:09 11/25/18 21:33 Activated 52.2 H Partial Thromboplast Time Bedside Glucose 48 *L 99 105 Test 11/26/18 01:35 11/26/18 02:41 11/26/18 03:50 11/26/18 04:39 Bedside Glucose 67 L 106 97 White Blood Count 6.7 # Red Blood Count 4.09 L Hemoglobin 9.3 L Hematocrit 30.4 L Mean Corpuscular Volume 74.3 L Mean Corpuscular 22.7 L Hemoglobin Mean Corpuscular 30.6 L Hemoglobin Concent Red Cell Distribution 19.8 H Width Platelet Count 137 #L Mean Platelet Volume 10.3 Immature Granulocytes % 0.600 H Neutrophils % 86.0 H Lymphocytes % 6.1 L Monocytes % 7.1 Eosinophils % 0.1 Basophils % 0.1 Nucleated Red Blood 0.3 H Cells % Immature Granulocytes # 0.040 H Neutrophils # 5.8 Lymphocytes # 0.4 L Monocytes # 0.5 Eosinophils # 0.0 Basophils # 0.0 Nucleated Red Blood 0.0 Cells # Activated 70.8 *H Partial Thromboplast Time Sodium Level 138 Potassium Level 4.6 Chloride Level 104 Carbon Dioxide Level 23 Anion Gap 11 Blood Urea Nitrogen 56 H Creatinine 3.07 H Est Glomerular Filtrat Rate mL/min Glucose Level 84 # Calcium Level 8.1 L Phosphorus Level 5.7 H Magnesium Level 2.2 Test 11/26/18 08:21 Bedside Glucose 89 Medications Medication Current Medications IV Flush (NS 3 ml) 3 ml PER PROTOCOL IV ; Start 11/16/18 at 19:30 Ondansetron HCl (Zofran Inj) 4 mg Q6H PRN IV NAUSEA/VOMITING; Start 11/16/18 at 19:30 Acetaminophen (Tylenol Tab) 650 mg Q6H PRN PO .PAIN 1-3 OR TEMP; Start 11/16/18 at 19:30 Acetaminophen/ Hydrocodone Bitart ([place] (5/325)) 1 tab Q6H PRN PO .MOD PAIN 4- 6 Last administered on 11/20/18 17:10; Admin Dose 1 TAB; Start 11/16/18 at 19:30 Morphine Sulfate (morphine) 2 mg Q4H PRN IV .SEVERE PAIN 7-10 Last administered on 11/26/18 02:43; Admin Dose 2 MG; Start 11/16/18 at 19:30 Docusate Sodium (Colace) 100 mg Q12H PRN PO .CONSTIPATION; Start 11/16/18 at 19:30 Zolpidem Tartrate (Ambien) 5 mg QHS PRN PO .INSOMNIA Last administered on 11/22/18 23:20; Admin Dose 5 MG; Start 11/16/18 at 19:30 Apixaban (Eliquis) 2.5 mg BID PO Last administered on 11/22/18 20:36; Admin Dose 2.5 MG; Start 11/16/18 at 21:00; Status Hold Clotrimazole (Lotrimin Cr) 1 applic BID TOP Last administered on 11/26/18 08:22; Admin Dose 1 APPLIC; Start 11/16/18 at 21:00 Fluticasone/ Vilanterol (Breo Ellipta 100-25 Mcg Inh) 1 inh DAILY INH Last administered on 11/22/18 08:09; Admin Dose 1 INH; Start 11/17/18 at 12:00 Albuterol/ Ipratropium (Duoneb) 3 ml Q4H RESP THERAPY HHN Last administered on 11/26/18 01:50; Admin Dose 3 ML; Start 11/18/18 at 13:00 Cefepime HCl 50 ml @ 100 mls/hr Q24H IVPB Last administered on 11/25/18 20:40; Admin Dose 100 MLS/HR; Start 11/20/18 at 21:00 Insulin Glargine (Lantus) 22 units DAILY@2000 SC Last administered on 11/24/18 20:18; Admin Dose 22 UNITS; Start 11/21/18 at 20:00 Metoprolol Tartrate (Lopressor) 5 mg Q4H PRN IV HR>110 Hold SBP<100; Start 11/23/18 at 13:00 Heparin Sodium (Porcine) 250 ml @ 10 mls/hr PER PROTOCOL IV Last administered on 11/25/18 18:49; Admin Dose 5 MLS/HR; Start 11/24/18 at 10:04 IV Flush (NS 10 ml) 10 ml PRN PRN IV IV PROTOCOL; Start 11/24/18 at 16:00 Linezolid 300 ml @ 300 mls/hr Q12 IVPB Last administered on 11/26/18 08:21; Admin Dose 300 MLS/HR; Start 11/24/18 at 21:00 Fluconazole/ Sodium Chloride 50 ml @ 50 mls/hr Q24H IVPB Last administered on 11/25/18 17:53; Admin Dose 50 MLS/HR; Start 11/24/18 at 18:00 Diagnostic Test (Pha) (Accu-Chek) 1 ea 02 XX Last administered on 11/26/18 02:42; Admin Dose 1 EA; Start 11/25/18 at 02:00 Insulin Aspart (Novolog Insulin Pen) NOVOLOG *MILD* ALGORI... Q4 SC Last administered on 11/25/18 08:36; Admin Dose 1 UNIT; Start 11/24/18 at 21:00 Miscellaneous Information 1 ea NOTE XX ; Start 11/24/18 at 20:30 Glucose (Glutose) 15 gm Q15M PRN PO DECREASED GLUCOSE; Start 11/24/18 at 20:30 Glucose (Glutose) 22.5 gm Q15M PRN PO DECREASED GLUCOSE; Start 11/24/18 at 20:30 Dextrose (D50w Syringe) 25 ml Q15M PRN IV DECREASED GLUCOSE Last administered on 11/26/18 01:40; Admin Dose 25 ML; Start 11/24/18 at 20:30 Dextrose (D50w Syringe) 50 ml Q15M PRN IV DECREASED GLUCOSE Last administered on 11/25/18 20:44; Admin Dose 50 ML; Start 11/24/18 at 20:30 Glucagon (Glucagen) 1 mg Q15M PRN IM DECREASED GLUCOSE; Start 11/24/18 at 20:30 Glucose (Glutose) 15 gm Q15M PRN BUCCAL DECREASED GLUCOSE; Start 11/24/18 at 20:30 ZACH HEALY Nov 26, 2018 09:30
--- NOTE | 2018-11-26 11:26 | CONS ---
Assessment/Plan Assessment/Plan Hospital Course (Demo Recall) IMP: 1.AF with mild RVR 2.Renal failure 3.hyperkalemia 4.Bradycardia 5.CHF-diastolic acute on chronic EF 50% by echo this admit 6.HTN 7.-mod to severe by echo 08/09 Recc: -ICU -Now DNI -IVP PRN BB -Continue abx's and f/u cx data -Follow MS -HD for volume removal Consultation Date/Type/Reason Admit Date/Time Nov 16, 2018 at 17:17 Initial Consult Date 11/20/18 Type of Consult Cardiology Reason for Consultation CHF Requesting Provider: JABIER SEBASTIAN Date/Time of Note DATE: 11/26/18 TIME: 11:24 Exam/Review of Systems Vital Signs Vitals Vital Signs Date Temp Pulse Resp B/P (MAP) Pulse Ox O2 O2 Flow FiO2 Time Delivery Rate 11/26/18 96 24 100 Nasal 2.0 10:16 Cannula 11/26/18 134/69 10:00 (90) 11/26/18 97.0 07:00 11/26/18 28 02:27 Intake and Output 11/25/18 11/25/18 11/26/18 1515:00 23:00 07:00 IntakeIntake Total 345 ml 10 ml 6 ml OutputOutput Total 195 ml 2465 ml 140 ml BalanceBalance 150 ml -2455 ml -134 ml Exam Exam Review of Systems: CONSTITUTIONAL: No fevers, chills. PULMONARY: No sob CARDIOVASCULAR: No chest pain/palpitations GASTROINTESTINAL: No nausea/vomiting. GENITOURINARY: No hematuria/dysuria. MUSCULOSKELETAL: No myagias/arthalgias. PSYCHIATRIC: The patient denies depression. NEUROLOGIC: somewhat improved MS Constitutional: other (sleeping, arousable) Psych: no complaints Head: normocephalic ENMT: mucosa pink and moist Neck: supple, jvd (9 cm water) Respiratory: diminished breath sounds (at bases/B) Cardiovascular: regular rate and rhythm Gastrointestinal: soft, non-tender Musculoskeletal: muscle tone (normal) Extremities: edema (none) Neurological: other (No focal deficits) Labs Result Diagram: 11/26/18 0350 11/26/18 0350 Results 24hrs Laboratory Tests Test 11/25/18 12:20 11/25/18 12:58 11/25/18 14:08 11/25/18 16:42 Bedside Glucose 123 104 71 Activated 57.9 H Partial Thromboplast Time Test 11/25/18 20:17 11/25/18 20:39 11/25/18 21:09 11/25/18 21:33 Activated 52.2 H Partial Thromboplast Time Bedside Glucose 48 *L 99 105 Test 11/26/18 01:35 11/26/18 02:41 11/26/18 03:50 11/26/18 04:39 Bedside Glucose 67 L 106 97 White Blood Count 6.7 # Red Blood Count 4.09 L Hemoglobin 9.3 L Hematocrit 30.4 L Mean Corpuscular Volume 74.3 L Mean Corpuscular 22.7 L Hemoglobin Mean Corpuscular 30.6 L Hemoglobin Concent Red Cell Distribution 19.8 H Width Platelet Count 137 #L Mean Platelet Volume 10.3 Immature Granulocytes % 0.600 H Neutrophils % 86.0 H Lymphocytes % 6.1 L Monocytes % 7.1 Eosinophils % 0.1 Basophils % 0.1 Nucleated Red Blood 0.3 H Cells % Immature Granulocytes # 0.040 H Neutrophils # 5.8 Lymphocytes # 0.4 L Monocytes # 0.5 Eosinophils # 0.0 Basophils # 0.0 Nucleated Red Blood 0.0 Cells # Activated 70.8 *H Partial Thromboplast Time Sodium Level 138 Potassium Level 4.6 Chloride Level 104 Carbon Dioxide Level 23 Anion Gap 11 Blood Urea Nitrogen 56 H Creatinine 3.07 H Est Glomerular Filtrat Rate mL/min Glucose Level 84 # Calcium Level 8.1 L Phosphorus Level 5.7 H Magnesium Level 2.2 Test 11/26/18 08:21 11/26/18 10:41 Bedside Glucose 89 Activated 64.4 H Partial Thromboplast Time Medications Medications Current Medications IV Flush (NS 3 ml) 3 ml PER PROTOCOL IV ; Start 11/16/18 at 19:30 Ondansetron HCl (Zofran Inj) 4 mg Q6H PRN IV NAUSEA/VOMITING; Start 11/16/18 at 19:30 Acetaminophen (Tylenol Tab) 650 mg Q6H PRN PO .PAIN 1-3 OR TEMP; Start 11/16/18 at 19:30 Acetaminophen/ Hydrocodone Bitart ([place] (5/325)) 1 tab Q6H PRN PO .MOD PAIN 4- 6 Last administered on 11/20/18 17:10; Admin Dose 1 TAB; Start 11/16/18 at 19:30 Morphine Sulfate (morphine) 2 mg Q4H PRN IV .SEVERE PAIN 7-10 Last administered on 11/26/18 02:43; Admin Dose 2 MG; Start 11/16/18 at 19:30 Docusate Sodium (Colace) 100 mg Q12H PRN PO .CONSTIPATION; Start 11/16/18 at 19:30 Zolpidem Tartrate (Ambien) 5 mg QHS PRN PO .INSOMNIA Last administered on 11/22/18 23:20; Admin Dose 5 MG; Start 11/16/18 at 19:30 Apixaban (Eliquis) 2.5 mg BID PO Last administered on 11/22/18 20:36; Admin Dose 2.5 MG; Start 11/16/18 at 21:00; Status Hold Clotrimazole (Lotrimin Cr) 1 applic BID TOP Last administered on 11/26/18 08: 22; Admin Dose 1 APPLIC; Start 11/16/18 at 21:00 Fluticasone/ Vilanterol (Breo Ellipta 100-25 Mcg Inh) 1 inh DAILY INH Last administered on 11/22/18 08:09; Admin Dose 1 INH; Start 11/17/18 at 12:00 Albuterol/ Ipratropium (Duoneb) 3 ml Q4H RESP THERAPY HHN Last administered on 11/26/18 10:06; Admin Dose 3 ML; Start 11/18/18 at 13:00 Cefepime HCl 50 ml @ 100 mls/hr Q24H IVPB Last administered on 11/25/18 20:40; Admin Dose 100 MLS/HR; Start 11/20/18 at 21:00 Insulin Glargine (Lantus) 22 units DAILY@2000 SC Last administered on 11/24/18 20:18; Admin Dose 22 UNITS; Start 11/21/18 at 20:00 Metoprolol Tartrate (Lopressor) 5 mg Q4H PRN IV HR>110 Hold SBP<100; Start 11/23/18 at 13:00 Heparin Sodium (Porcine) 250 ml @ 10 mls/hr PER PROTOCOL IV Last administered on 11/25/18 18:49; Admin Dose 5 MLS/HR; Start 11/24/18 at 10:04 IV Flush (NS 10 ml) 10 ml PRN PRN IV IV PROTOCOL; Start 11/24/18 at 16:00 Linezolid 300 ml @ 300 mls/hr Q12 IVPB Last administered on 11/26/18at 08:21; Admin Dose 300 MLS/HR; Start 11/24/18 at 21:00 Fluconazole/ Sodium Chloride 50 ml @ 50 mls/hr Q24H IVPB Last administered on 11/25/18at 17:53; Admin Dose 50 MLS/HR; Start 11/24/18 at 18:00 Diagnostic Test (Pha) (Accu-Chek) 1 ea 02 XX Last administered on 11/26/18at 02:42; Admin Dose 1 EA; Start 11/25/18 at 02:00 Insulin Aspart (Novolog Insulin Pen) NOVOLOG *MILD* ALGORI... Q4 SC Last administered on 11/25/18 08:36; Admin Dose 1 UNIT; Start 11/24/18 at 21:00 Miscellaneous Information 1 ea NOTE XX ; Start 11/24/18 at 20:30 Glucose (Glutose) 15 gm Q15M PRN PO DECREASED GLUCOSE; Start 11/24/18 at 20:30 Glucose (Glutose) 22.5 gm Q15M PRN PO DECREASED GLUCOSE; Start 11/24/18 at 20:30 Dextrose (D50w Syringe) 25 ml Q15M PRN IV DECREASED GLUCOSE Last administered on 11/26/18at 01:40; Admin Dose 25 ML; Start 11/24/18 at 20:30 Dextrose (D50w Syringe) 50 ml Q15M PRN IV DECREASED GLUCOSE Last administered on 11/25/18at 20:44; Admin Dose 50 ML; Start 11/24/18 at 20:30 Glucagon (Glucagen) 1 mg Q15M PRN IM DECREASED GLUCOSE; Start 11/24/18 at 20:30 Glucose (Glutose) 15 gm Q15M PRN BUCCAL DECREASED GLUCOSE; Start 11/24/18 at 2 0:30 GHASSAN SHERMAN Nov 26, 2018 11:26
--- NOTE | 2018-11-26 12:29 | CONS ---
Assessment/Plan Assessment/Plan Hospital Course (Demo Recall) No acute events overnight patient is awake comfortable on nasal cannula no fevers overnight. WBC 6.7 platelets 137 neutrophils 86 BUN 56 creatinine 3.07 Indwelling: Right femoral Noel, Soto catheter. PICC Antimicrobials: Zyvox cefepime, Diflucan Physical examination: Well-developed morbidly obese -[place] woman who in no distress. Head atraumatic normocephalic sclera nonicteric. Neck is supple. Chest rise symmetrical breath sounds diminished to bases. Heart: S1- S2.. Abdomen obese soft, bowel sounds present. Extremities: Bilateral lower extremities edema erythema and multiple wounds Assessment: 1. Acute hypoxemic respiratory failure secondary to pulmonary edema and CHF exacerbation, poss PNA 2. Sepsis, present on admission 3. 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 Urinary tract infection 5. Staph bacteremia consistent with contaminant 6. Morbid obesity 7. Atrial fibrillation 8. Diabetes 9. Acute kidney failure Plan: Stable on nasal cannula, will change antibiotics to oral Levaquin, continue local wound care DW staff Consultation Date/Type/Reason Admit Date/Time Nov 16, 2018 at 17:17 Initial Consult Date Type of Consult id Requesting Provider: JABIER SEBASTIAN Date/Time of Note DATE: 11/26/18 TIME: 12:17 Exam/Review of Systems Exam Vitals Vital Signs Date Temp Pulse Resp B/P (MAP) Pulse Ox O2 O2 Flow FiO2 Time Delivery Rate 11/26/18 111 23 145/66 100 Nasal 12:00 (92) Cannula 11/26/18 2.0 10:16 11/26/18 97.0 07:00 11/26/18 28 02:27 Intake and Output 11/25/18 11/25/18 11/26/18 1515:00 23:00 07:00 IntakeIntake Total 345 ml 10 ml 6 ml OutputOutput Total 195 ml 2465 ml 140 ml BalanceBalance 150 ml -2455 ml -134 ml Results Result Diagram: 11/26/18 0350 11/26/18 0350 Results 24hrs Laboratory Tests Test 11/25/18 12:20 11/25/18 12:58 11/25/18 14:08 11/25/18 16:42 Bedside Glucose 123 104 71 Activated 57.9 H Partial Thromboplast Time Test 11/25/18 20:17 11/25/18 20:39 11/25/18 21:09 11/25/18 21:33 Activated 52.2 H Partial Thromboplast Time Bedside Glucose 48 *L 99 105 Test 11/26/18 01:35 11/26/18 02:41 11/26/18 03:50 11/26/18 04:39 Bedside Glucose 67 L 106 97 White Blood Count 6.7 # Red Blood Count 4.09 L Hemoglobin 9.3 L Hematocrit 30.4 L Mean Corpuscular Volume 74.3 L Mean Corpuscular 22.7 L Hemoglobin Mean Corpuscular 30.6 L Hemoglobin Concent Red Cell Distribution 19.8 H Width Platelet Count 137 #L Mean Platelet Volume 10.3 Immature Granulocytes % 0.600 H Neutrophils % 86.0 H Lymphocytes % 6.1 L Monocytes % 7.1 Eosinophils % 0.1 Basophils % 0.1 Nucleated Red Blood 0.3 H Cells % Immature Granulocytes # 0.040 H Neutrophils # 5.8 Lymphocytes # 0.4 L Monocytes # 0.5 Eosinophils # 0.0 Basophils # 0.0 Nucleated Red Blood 0.0 Cells # Activated 70.8 *H Partial Thromboplast Time Sodium Level 138 Potassium Level 4.6 Chloride Level 104 Carbon Dioxide Level 23 Anion Gap 11 Blood Urea Nitrogen 56 H Creatinine 3.07 H Est Glomerular Filtrat Rate mL/min Glucose Level 84 # Calcium Level 8.1 L Phosphorus Level 5.7 H Magnesium Level 2.2 Test 11/26/18 08:21 11/26/18 10:41 Bedside Glucose 89 Activated 64.4 H Partial Thromboplast Time Medications Medication Current Medications IV Flush (NS 3 ml) 3 ml PER PROTOCOL IV ; Start 11/16/18 at 19:30 Ondansetron HCl (Zofran Inj) 4 mg Q6H PRN IV NAUSEA/VOMITING; Start 11/16/18 at 19:30 Acetaminophen (Tylenol Tab) 650 mg Q6H PRN PO .PAIN 1-3 OR TEMP; Start 11/16/18 at 19:30 Acetaminophen/ Hydrocodone Bitart ([place] (5/325)) 1 tab Q6H PRN PO .MOD PAIN 4- 6 Last administered on 11/20/18at 17:10; Admin Dose 1 TAB; Start 11/16/18 at 19:30 Morphine Sulfate (morphine) 2 mg Q4H PRN IV .SEVERE PAIN 7-10 Last administered on 11/26/18 02:43; Admin Dose 2 MG; Start 11/16/18 at 19:30 Docusate Sodium (Colace) 100 mg Q12H PRN PO .CONSTIPATION; Start 11/16/18 at 19:30 Zolpidem Tartrate (Ambien) 5 mg QHS PRN PO .INSOMNIA Last administered on 11/22/18 23:20; Admin Dose 5 MG; Start 11/16/18 at 19:30 Apixaban (Eliquis) 2.5 mg BID PO Last administered on 11/22/18 20:36; Admin Dose 2.5 MG; Start 11/16/18 at 21:00; Status Hold Clotrimazole (Lotrimin Cr) 1 applic BID TOP Last administered on 11/26/18 08:22; Admin Dose 1 APPLIC; Start 11/16/18 at 21:00 Fluticasone/ Vilanterol (Breo Ellipta 100-25 Mcg Inh) 1 inh DAILY INH Last administered on 11/22/18 08:09; Admin Dose 1 INH; Start 11/17/18 at 12:00 Albuterol/ Ipratropium (Duoneb) 3 ml Q4H RESP THERAPY HHN Last administered on 11/26/18 10:06; Admin Dose 3 ML; Start 11/18/18 at 13:00 Cefepime HCl 50 ml @ 100 mls/hr Q24H IVPB Last administered on 11/25/18 20:40; Admin Dose 100 MLS/HR; Start 11/20/18 at 21:00 Insulin Glargine (Lantus) 22 units DAILY@2000 SC Last administered on 11/24/18 20:18; Admin Dose 22 UNITS; Start 11/21/18 at 20:00 Metoprolol Tartrate (Lopressor) 5 mg Q4H PRN IV HR>110 Hold SBP<100; Start 11/23/18 at 13:00 Heparin Sodium (Porcine) 250 ml @ 10 mls/hr PER PROTOCOL IV Last administered on 11/25/18 18:49; Admin Dose 5 MLS/HR; Start 11/24/18 at 10:04 IV Flush (NS 10 ml) 10 ml PRN PRN IV IV PROTOCOL; Start 11/24/18 at 16:00 Linezolid 300 ml @ 300 mls/hr Q12 IVPB Last administered on 11/26/18 08:21; Admin Dose 300 MLS/HR; Start 11/24/18 at 21:00 Fluconazole/ Sodium Chloride 50 ml @ 50 mls/hr Q24H IVPB Last administered on 11/25/18 17:53; Admin Dose 50 MLS/HR; Start 11/24/18 at 18:00 Diagnostic Test (Pha) (Accu-Chek) 1 ea 02 XX Last administered on 11/26/18 02:42; Admin Dose 1 EA; Start 11/25/18 at 02:00 Insulin Aspart (Novolog Insulin Pen) NOVOLOG *MILD* ALGORI... Q4 SC Last administered on 11/25/18 08:36; Admin Dose 1 UNIT; Start 11/24/18 at 21:00 Miscellaneous Information 1 ea NOTE XX ; Start 11/24/18 at 20:30 Glucose (Glutose) 15 gm Q15M PRN PO DECREASED GLUCOSE; Start 11/24/18 at 20:30 Glucose (Glutose) 22.5 gm Q15M PRN PO DECREASED GLUCOSE; Start 11/24/18 at 20:30 Dextrose (D50w Syringe) 25 ml Q15M PRN IV DECREASED GLUCOSE Last administered on 11/26/18 01:40; Admin Dose 25 ML; Start 11/24/18 at 20:30 Dextrose (D50w Syringe) 50 ml Q15M PRN IV DECREASED GLUCOSE Last administered on 11/25/18at 20:44; Admin Dose 50 ML; Start 11/24/18 at 20:30 Glucagon (Glucagen) 1 mg Q15M PRN IM DECREASED GLUCOSE; Start 11/24/18 at 20:30 Glucose (Glutose) 15 gm Q15M PRN BUCCAL DECREASED GLUCOSE; Start 11/24/18 at 20:30 ROCHELLE STERLING NP Nov 26, 2018 12:29
[2018-11-26] MEDS: LEVOFLOXACIN 250MG/D5W (PMX) 50 ML IVPB SCH (12:48)
--- NOTE | 2018-11-26 14:28 | PN ---
Date/Time of Note Date/Time of Note DATE: 11/26/18 TIME: 14:25 Assessment/Plan VTE Prophylaxis Risk score (from Ns)>0 risk: 12 SCD applied (from Ns): Yes Pharmacological prophylaxis: heparin Lines/Catheters IV Catheter Type (from Nrs): PICC Line Central line still needed: Yes Urinary Cath still in place: Yes Reason Cath still needed: urinary retention Assessment/Plan Hospital Course 83 yo female with , diastolic CHF with acute respiratory failure and volume overload from CHF and BRIE Patient's family yesterday reversed their decision for palliative care. Continue to want aggressive care now Acute respiratory failure 2/2 volume overload: - patient's status has improved, no longer seems at risk for intubation - Continue O2 by NC - Volume removal by HD BRIE: - HD per renal A Fib: - Continue heparin - Digoxin given Cirrhosis Septic encephelopathy, improving Sepsis - Antibiotics per ID DNR Result Diagram: 11/26/18 0350 11/26/18 0350 Results 24hrs Laboratory Tests Test 11/25/18 16:42 11/25/18 20:17 11/25/18 20:39 11/25/18 21:09 Bedside Glucose 71 48 *L 99 Activated 52.2 H Partial Thromboplast Time Test 11/25/18 21:33 11/26/18 01:35 11/26/18 02:41 11/26/18 03:50 Bedside Glucose 105 67 L 106 White Blood Count 6.7 # Red Blood Count 4.09 L Hemoglobin 9.3 L Hematocrit 30.4 L Mean Corpuscular Volume 74.3 L Mean Corpuscular 22.7 L Hemoglobin Mean Corpuscular 30.6 L Hemoglobin Concent Red Cell Distribution 19.8 H Width Platelet Count 137 #L Mean Platelet Volume 10.3 Immature Granulocytes % 0.600 H Neutrophils % 86.0 H Lymphocytes % 6.1 L Monocytes % 7.1 Eosinophils % 0.1 Basophils % 0.1 Nucleated Red Blood 0.3 H Cells % Immature Granulocytes # 0.040 H Neutrophils # 5.8 Lymphocytes # 0.4 L Monocytes # 0.5 Eosinophils # 0.0 Basophils # 0.0 Nucleated Red Blood 0.0 Cells # Activated 70.8 *H Partial Thromboplast Time Sodium Level 138 Potassium Level 4.6 Chloride Level 104 Carbon Dioxide Level 23 Anion Gap 11 Blood Urea Nitrogen 56 H Creatinine 3.07 H Est Glomerular Filtrat Rate mL/min Glucose Level 84 # Calcium Level 8.1 L Phosphorus Level 5.7 H Magnesium Level 2.2 Test 11/26/18 04:39 11/26/18 08:21 11/26/18 10:41 11/26/18 12:28 Bedside Glucose 97 89 97 Activated 64.4 H Partial Thromboplast Time Subjective 24 Hr Interval Summary Free Text/Dictation Dialyzed yesterday again, 2 L off About 400 cc UOP over 24 hours More alert today Exam/Review of Systems Exam Vitals Vital Signs Date Temp Pulse Resp B/P (MAP) Pulse Ox O2 O2 Flow FiO2 Time Delivery Rate 11/26/18 93 98 Nasal 2.0 14:07 Cannula 11/26/18 28 134/62 14:00 (86) 11/26/18 97.0 07:00 11/26/18 28 02:27 Intake and Output 11/25/18 11/25/18 11/26/18 1515:00 23:00 07:00 IntakeIntake Total 345 ml 10 ml 6 ml OutputOutput Total 195 ml 2465 ml 140 ml BalanceBalance 150 ml -2455 ml -134 ml Exam Breathing stable on nasal cannula More alert, oriented to "hospital" and her own name Still a bit lethargic + JVD tachynepic but nonlabored. Expiratory wheezing. shallow breathing Tachy, no m/r/g Abodmen soft nt nd Results Results 24hrs Laboratory Tests Test 11/25/18 16:42 11/25/18 20:17 11/25/18 20:39 11/25/18 21:09 Bedside Glucose 71 48 *L 99 Activated 52.2 H Partial Thromboplast Time Test 11/25/18 21:33 11/26/18 01:35 11/26/18 02:41 11/26/18 03:50 Bedside Glucose 105 67 L 106 White Blood Count 6.7 # Red Blood Count 4.09 L Hemoglobin 9.3 L Hematocrit 30.4 L Mean Corpuscular Volume 74.3 L Mean Corpuscular 22.7 L Hemoglobin Mean Corpuscular 30.6 L Hemoglobin Concent Red Cell Distribution 19.8 H Width Platelet Count 137 #L Mean Platelet Volume 10.3 Immature Granulocytes % 0.600 H Neutrophils % 86.0 H Lymphocytes % 6.1 L Monocytes % 7.1 Eosinophils % 0.1 Basophils % 0.1 Nucleated Red Blood 0.3 H Cells % Immature Granulocytes # 0.040 H Neutrophils # 5.8 Lymphocytes # 0.4 L Monocytes # 0.5 Eosinophils # 0.0 Basophils # 0.0 Nucleated Red Blood 0.0 Cells # Activated 70.8 *H Partial Thromboplast Time Sodium Level 138 Potassium Level 4.6 Chloride Level 104 Carbon Dioxide Level 23 Anion Gap 11 Blood Urea Nitrogen 56 H Creatinine 3.07 H Est Glomerular Filtrat Rate mL/min Glucose Level 84 # Calcium Level 8.1 L Phosphorus Level 5.7 H Magnesium Level 2.2 Test 11/26/18 04:39 11/26/18 08:21 11/26/18 10:41 11/26/18 12:28 Bedside Glucose 97 89 97 Activated 64.4 H Partial Thromboplast Time Medications Medication Current Medications IV Flush (NS 3 ml) 3 ml PER PROTOCOL IV ; Start 11/16/18 at 19:30 Ondansetron HCl (Zofran Inj) 4 mg Q6H PRN IV NAUSEA/VOMITING; Start 11/16/18 at 19:30 Acetaminophen (Tylenol Tab) 650 mg Q6H PRN PO .PAIN 1-3 OR TEMP; Start 11/16/18 at 19:30 Acetaminophen/ Hydrocodone Bitart ([place] (5/325)) 1 tab Q6H PRN PO .MOD PAIN 4- 6 Last administered on 11/20/18at 17:10; Admin Dose 1 TAB; Start 11/16/18 at 19:30 Morphine Sulfate (morphine) 2 mg Q4H PRN IV .SEVERE PAIN 7-10 Last administered on 11/26/18at 02:43; Admin Dose 2 MG; Start 11/16/18 at 19:30 Docusate Sodium (Colace) 100 mg Q12H PRN PO .CONSTIPATION; Start 11/16/18 at 19:30 Zolpidem Tartrate (Ambien) 5 mg QHS PRN PO .INSOMNIA Last administered on 11/22/18 23:20; Admin Dose 5 MG; Start 11/16/18 at 19:30 Apixaban (Eliquis) 2.5 mg BID PO Last administered on 11/22/18 20:36; Admin Dose 2.5 MG; Start 11/16/18 at 21:00; Status Hold Clotrimazole (Lotrimin Cr) 1 applic BID TOP Last administered on 11/26/18 08:22; Admin Dose 1 APPLIC; Start 11/16/18 at 21:00 Fluticasone/ Vilanterol (Breo Ellipta 100-25 Mcg Inh) 1 inh DAILY INH Last administered on 11/22/18 08:09; Admin Dose 1 INH; Start 11/17/18 at 12:00 Albuterol/ Ipratropium (Duoneb) 3 ml Q4H RESP THERAPY HHN Last administered on 11/26/18 13:58; Admin Dose 3 ML; Start 11/18/18 at 13:00 Insulin Glargine (Lantus) 22 units DAILY@2000 SC Last administered on 11/24/18 20:18; Admin Dose 22 UNITS; Start 11/21/18 at 20:00 Metoprolol Tartrate (Lopressor) 5 mg Q4H PRN IV HR>110 Hold SBP<100; Start 11/23/18 at 13:00 Heparin Sodium (Porcine) 250 ml @ 10 mls/hr PER PROTOCOL IV Last administered on 11/25/18 18:49; Admin Dose 5 MLS/HR; Start 11/24/18 at 10:04 IV Flush (NS 10 ml) 10 ml PRN PRN IV IV PROTOCOL; Start 11/24/18 at 16:00 Diagnostic Test (Pha) (Accu-Chek) 1 ea 02 XX Last administered on 11/26/18 02:42; Admin Dose 1 EA; Start 11/25/18 at 02:00 Insulin Aspart (Novolog Insulin Pen) NOVOLOG *MILD* ALGORI... Q4 SC Last administered on 11/25/18 08:36; Admin Dose 1 UNIT; Start 11/24/18 at 21:00 Miscellaneous Information 1 ea NOTE XX ; Start 11/24/18 at 20:30 Glucose (Glutose) 15 gm Q15M PRN PO DECREASED GLUCOSE; Start 11/24/18 at 20:30 Glucose (Glutose) 22.5 gm Q15M PRN PO DECREASED GLUCOSE; Start 11/24/18 at 20:30 Dextrose (D50w Syringe) 25 ml Q15M PRN IV DECREASED GLUCOSE Last administered on 11/26/18 01:40; Admin Dose 25 ML; Start 11/24/18 at 20:30 Dextrose (D50w Syringe) 50 ml Q15M PRN IV DECREASED GLUCOSE Last administered on 11/25/18at 20:44; Admin Dose 50 ML; Start 11/24/18 at 20:30 Glucagon (Glucagen) 1 mg Q15M PRN IM DECREASED GLUCOSE; Start 11/24/18 at 20:30 Glucose (Glutose) 15 gm Q15M PRN BUCCAL DECREASED GLUCOSE; Start 11/24/18 at 20:30 Levofloxacin/ Dextrose 50 ml @ 50 mls/hr Q48H IVPB Last administered on 11/26/18at 12:48; Admin Dose 50 MLS/HR; Start 11/26/18 at 12:30 HARIS GREEN MD Nov 26, 2018 14:28
[2018-11-27] VITALS (31 sets, daily range): BP systolic 108–167; BP diastolic 55–87; PULSE 88–117; RESP 19–28
[2018-11-27] MEDS: INSULIN ASPART [NOVOLOG] 3 ML PEN SC SCH ×6 (01:00→20:39)
[2018-11-27] MEDS: ALBUTEROL/IPRATROPIUM (NEB) 3 ML AMP HHN SCH ×6 (01:35→20:52)
[2018-11-27] MEDS: METHYLPREDNISOLONE 40 MG INJ IV SCH ×3 (02:04→18:46)
[2018-11-27] MEDS: HEPARIN 25000 UNITS/250 ML 250 ML IV SCH (05:39)
--- NOTE | 2018-11-27 07:20 | CONS ---
Assessment/Plan Assessment/Plan Assessment/Plan (Daily) Assessment recommendations; 1. Patient admitted to ICU with severe pulmonary edema due to acute renal failure with massive anasarca with marked overall clinical improvement after initiated on hemodialysis. 2. Chronic atrial fibrillation. 3. History of diabetes and hypertension. 4. Lower extremity cellulitis, currently on Levaquin. 5. Mild anemia. 6. Interval resolution of encephalopathy. Continue on supportive care. Initiate clear liquid diet as tolerated with advance to renal diet as tolerated. Transfer to medical floor. Consultation Date/Type/Reason Admit Date/Time Nov 16, 2018 at 17:17 Initial Consult Date Type of Consult Pulmonary/critical care Patient's condition has taken a turn for the worse with altered mental status. Patient now has been transferred to ICU. Hemodialysis will be started shortly. Patient appears confused. But is hemodynamically stable. General exam; elderly woman, awake, agitated off and on. Requesting Provider: JABIER SEBASTIAN Date/Time of Note DATE: 11/27/18 TIME: 07:18 24 HR Interval Summary Free Text/Dictation Patient's condition is markedly improved. Patient now is completely awake and alert. Able to talk. Communicative appropriately. General exam; elderly female, awake alert, currently no distress. Exam/Review of Systems Exam Vitals Vital Signs Date Temp Pulse Resp B/P (MAP) Pulse Ox O2 O2 Flow FiO2 Time Delivery Rate 11/27/18 100 21 06:21 11/27/18 117 25 141/81 Nasal 06:00 (101) Cannula 11/27/18 21.0 05:10 11/27/18 97.5 04:00 Intake and Output 11/26/18 11/26/18 11/27/18 1414:59 22:59 06:59 IntakeIntake Total 398 ml 43 ml 57 ml OutputOutput Total 235 ml 340 ml 710 ml BalanceBalance 163 ml -297 ml -653 ml Exam H EENT exam; supple neck, positive JVD. No lymphadenopathy. Midline trachea. No thyromegaly. No neck masses. Patient is edentulous. Chest exam; diminished but clear breath sounds. S1-S2 audible, no murmurs. Irregular rhythm. Abdomen exam; soft, nontender. No organomegaly. Bowel sounds audible. Extremity exam; marked reduction in generalized anasarca. Lower extremity cellulitis is improving. [employer] exam; no focal deficit. Results Result Diagram: 11/27/18 0557 11/26/18 0350 Results 24hrs Laboratory Tests Test 11/26/18 08:21 11/26/18 10:41 11/26/18 12:28 11/26/18 16:37 Bedside Glucose 89 97 107 Activated 64.4 H Partial Thromboplast Time Test 11/26/18 17:05 11/26/18 20:08 11/26/18 23:41 11/27/18 01:03 Activated 71.3 *H 56.5 H Partial Thromboplast Time Bedside Glucose 113 120 Test 11/27/18 05:30 11/27/18 05:57 Bedside Glucose 146 White Blood Count 4.3 #L Red Blood Count 3.74 L Hemoglobin 8.4 L Hematocrit 27.1 L Mean Corpuscular Volume 72.5 L Mean Corpuscular 22.5 L Hemoglobin Mean Corpuscular 31.0 L Hemoglobin Concent Red Cell Distribution 19.6 H Width Platelet Count 127 L Mean Platelet Volume 11.2 H Immature Granulocytes % 0.500 H Neutrophils % 92.5 H Lymphocytes % 4.2 L Monocytes % 2.8 Eosinophils % 0.0 Basophils % 0.0 Nucleated Red Blood 0.0 Cells % Immature Granulocytes # 0.020 Neutrophils # 4.0 Lymphocytes # 0.2 L Monocytes # 0.1 L Eosinophils # 0.0 Basophils # 0.0 Nucleated Red Blood 0.0 Cells # Medications Medication Current Medications IV Flush (NS 3 ml) 3 ml PER PROTOCOL IV ; Start 11/16/18 at 19:30 Ondansetron HCl (Zofran Inj) 4 mg Q6H PRN IV NAUSEA/VOMITING; Start 11/16/18 at 19:30 Acetaminophen (Tylenol Tab) 650 mg Q6H PRN PO .PAIN 1-3 OR TEMP; Start 11/16/18 at 19:30 Acetaminophen/ Hydrocodone Bitart ([place] (5/325)) 1 tab Q6H PRN PO .MOD PAIN 4- 6 Last administered on 11/20/18at 17:10; Admin Dose 1 TAB; Start 11/16/18 at 19:30 Docusate Sodium (Colace) 100 mg Q12H PRN PO .CONSTIPATION; Start 11/16/18 at 19:30 Zolpidem Tartrate (Ambien) 5 mg QHS PRN PO .INSOMNIA Last administered on 11/22/18 23:20; Admin Dose 5 MG; Start 11/16/18 at 19:30 Clotrimazole (Lotrimin Cr) 1 applic BID TOP Last administered on 11/26/18 22:31; Admin Dose 1 APPLIC; Start 11/16/18 at 21:00 Fluticasone/ Vilanterol (Breo Ellipta 100-25 Mcg Inh) 1 inh DAILY INH Last administered on 11/22/18 08:09; Admin Dose 1 INH; Start 11/17/18 at 12:00 Albuterol/ Ipratropium (Duoneb) 3 ml Q4H RESP THERAPY HHN Last administered on 11/27/18 06:17; Admin Dose 3 ML; Start 11/18/18 at 13:00 Insulin Glargine (Lantus) 22 units DAILY@2000 SC Last administered on 11/24/18 20:18; Admin Dose 22 UNITS; Start 11/21/18 at 20:00; Status Hold Metoprolol Tartrate (Lopressor) 5 mg Q4H PRN IV HR>110 Hold SBP<100; Start 11/23/18 at 13:00 Heparin Sodium (Porcine) 250 ml @ 10 mls/hr PER PROTOCOL IV Last administered on 11/27/18 05:39; Admin Dose 7 MLS/HR; Start 11/24/18 at 10:04 IV Flush (NS 10 ml) 10 ml PRN PRN IV IV PROTOCOL; Start 11/24/18 at 16:00 Insulin Aspart (Novolog Insulin Pen) NOVOLOG *MILD* ALGORI... Q4 SC Last administered on 11/27/18 05:37; Admin Dose 1 UNIT; Start 11/24/18 at 21:00 Miscellaneous Information 1 ea NOTE XX ; Start 11/24/18 at 20:30 Glucose (Glutose) 15 gm Q15M PRN PO DECREASED GLUCOSE; Start 11/24/18 at 20:30 Glucose (Glutose) 22.5 gm Q15M PRN PO DECREASED GLUCOSE; Start 11/24/18 at 20:30 Dextrose (D50w Syringe) 25 ml Q15M PRN IV DECREASED GLUCOSE Last administered on 11/26/18 01:40; Admin Dose 25 ML; Start 11/24/18 at 20:30 Dextrose (D50w Syringe) 50 ml Q15M PRN IV DECREASED GLUCOSE Last administered on 11/25/18at 20:44; Admin Dose 50 ML; Start 11/24/18 at 20:30 Glucagon (Glucagen) 1 mg Q15M PRN IM DECREASED GLUCOSE; Start 11/24/18 at 20:30 Glucose (Glutose) 15 gm Q15M PRN BUCCAL DECREASED GLUCOSE; Start 11/24/18 at 20:30 Levofloxacin/ Dextrose 50 ml @ 50 mls/hr Q48H IVPB Last administered on 11/26/18at 12:48; Admin Dose 50 MLS/HR; Start 11/26/18 at 12:30 Methylprednisolone Sodium Succinate (Solu-Medrol) 30 mg Q8H IV Last administered on 11/27/18at 02:04; Admin Dose 30 MG; Start 11/27/18 at 02:00 ZACH HEALY 8, 2019 07:20
[2018-11-27] MEDS: FLUTICASONE/VILANTEROL 100-25 INH SCH (09:00)
--- NOTE | 2018-11-27 09:11 | PN ---
DATE: 11/27/2018 SUBJECTIVE DATA: The patient is stable. Urinary output has been improving. No other acute events n oted. No hemoptysis, hematemesis, hematochezia. The patient is more alert. OBJECTIVE: VITAL SIGNS: Blood pressure is 141/81, respiration 25, pulse 117, temperature 97.6. HEENT: Head is normocephalic. NECK: Supple. HEART: Regular rate. LUNGS: Show diminished breath sounds at the base. ABDOMEN: Soft, nontender to palpation. No rebound or guarding. EXTREMITIES: Negative for clubbing, cyanosis. Positive edema. DERMATOLOGIC: No rashes. MUSCULOSKELETAL: No joint effusion. NEUROLOGIC: No change in exam. MEDICATIONS: Reviewed. LABORATORY DATA: Shows sodium 139, potassium 5.3, BUN 60, creatinine 3.79. White count 4.3, hemoglo bin 8.4, platelet count is 127. ASSESSMENT AND PLAN: 1. Nonoliguric acute kidney injury on top of chronic kidney disease with previous baseline creatinin e of 1.5 mg/dL. Etiology of acute kidney injury is multifactorial secondary to hemodynamics, possibl e cardiorenal syndrome, acute tubular necrosis. The patient is dialysis dependent, but has shown inc reased urinary output, as the patient may be showing signs of renal recovery. Plan is for hemodialys is today for solute clearance volume removal. Continue to monitor renal function and urinary output closely. 2. Hyperkalemia. Continue dialysis on low potassium bath. 3. Volume overload. Continue ultrafiltration dialysis. 4. Acute respiratory failure secondary to congestive heart failure, chronic obstructive pulmonary di sease. The patient is currently off BiPAP. Continue to monitor. Continue medical management. 5. Atrial fibrillation. Continue current treatment plan. 6. Diabetes. Continue current insulin regimen. 7. Acute encephalopathy, etiology is toxic metabolic. 8. Obesity. Continue dietary modification. 9. Aortic stenosis. Continue to monitor. Follow up with cardiology. Dictated By: JOCELINE OLEA/MIRTA Conf#: [id number] DID#: [id number] CC: JABIER SEBASTIAN MD;*EndCC*
[2018-11-27] MEDS: CLOTRIMAZOLE 1% 30 GM CR TOP SCH ×2 (09:31→20:37)
--- NOTE | 2018-11-27 11:19 | CONS ---
Assessment/Plan Assessment/Plan Hospital Course (Demo Recall) IMP: 1.AF with mild RVR 2.Renal failure 3.hyperkalemia 4.Bradycardia 5.CHF-diastolic acute on chronic EF 50% by echo this admit 6.HTN 7.-mod to severe by echo 08/09 Recc: -ICU -Now DNI -IVP PRN BB -on heparin -Continue abx's and f/u cx data -Follow MS -HD for volume removal, ongoing now Consultation Date/Type/Reason Admit Date/Time Nov 16, 2018 at 17:17 Initial Consult Date 11/20/18 Type of Consult Cardiology Reason for Consultation AF/AFL Requesting Provider: JABIER SEBASTIAN Date/Time of Note DATE: 11/27/18 TIME: 11:17 Exam/Review of Systems Vital Signs Vitals Vital Signs Date Temp Pulse Resp B/P (MAP) Pulse Ox O2 O2 Flow FiO2 Time Delivery Rate 11/27/18 100 11:00 11/27/18 26 123/64 98 Room Air 08:35 (83) 11/27/18 97.9 08:00 11/27/18 21 06:21 11/27/18 21.0 05:10 Intake and Output 11/26/18 11/26/18 11/27/18 1515:00 23:00 07:00 IntakeIntake Total 398 ml 42 ml 59 ml OutputOutput Total 220 ml 425 ml 650 ml BalanceBalance 178 ml -383 ml -591 ml Exam Exam Review of Systems: CONSTITUTIONAL: No fevers, chills. PULMONARY: No sob CARDIOVASCULAR: No chest pain/palpitations GASTROINTESTINAL: No nausea/vomiting. GENITOURINARY: No hematuria/dysuria. MUSCULOSKELETAL: No myagias/arthalgias. PSYCHIATRIC: The patient denies depression. NEUROLOGIC: No weakness Constitutional: alert Psych: no complaints Head: normocephalic ENMT: mucosa pink and moist Neck: supple, jvd (9 cm water) Respiratory: diminished breath sounds (at bases/B) Cardiovascular: irregular rhythm Gastrointestinal: soft, non-tender, other (obese) Musculoskeletal: muscle tone (normal) Extremities: pitting pedal edema (bilateral) Neurological: lethargic Labs Result Diagram: 11/27/18 0557 11/27/18 0557 Results 24hrs Laboratory Tests Test 11/26/18 12:28 11/26/18 16:37 11/26/18 17:05 11/26/18 20:08 Bedside Glucose 97 107 113 Activated 71.3 *H Partial Thromboplast Time Test 11/26/18 23:41 11/27/18 01:03 11/27/18 05:30 11/27/18 05:57 Activated 56.5 H Partial Thromboplast Time Bedside Glucose 120 146 White Blood Count 4.3 #L Red Blood Count 3.74 L Hemoglobin 8.4 L Hematocrit 27.1 L Mean Corpuscular Volume 72.5 L Mean Corpuscular 22.5 L Hemoglobin Mean Corpuscular 31.0 L Hemoglobin Concent Red Cell Distribution 19.6 H Width Platelet Count 127 L Mean Platelet Volume 11.2 H Immature Granulocytes % 0.500 H Neutrophils % 92.5 H Lymphocytes % 4.2 L Monocytes % 2.8 Eosinophils % 0.0 Basophils % 0.0 Nucleated Red Blood 0.0 Cells % Immature Granulocytes # 0.020 Neutrophils # 4.0 Lymphocytes # 0.2 L Monocytes # 0.1 L Eosinophils # 0.0 Basophils # 0.0 Nucleated Red Blood 0.0 Cells # Sodium Level 139 Potassium Level 5.3 H Chloride Level 102 Carbon Dioxide Level 24 Anion Gap 13 Blood Urea Nitrogen 60 H Creatinine 3.79 H Est Glomerular Filtrat Rate mL/min Glucose Level 129 # Calcium Level 8.5 Test 11/27/18 08:10 11/27/18 09:35 Activated 82.4 *H Partial Thromboplast Time Bedside Glucose 136 Medications Medications Current Medications IV Flush (NS 3 ml) 3 ml PER PROTOCOL IV ; Start 11/16/18 at 19:30 Ondansetron HCl (Zofran Inj) 4 mg Q6H PRN IV NAUSEA/VOMITING; Start 11/16/18 at 19:30 Acetaminophen (Tylenol Tab) 650 mg Q6H PRN PO .PAIN 1-3 OR TEMP; Start 11/16/18 at 19:30 Acetaminophen/ Hydrocodone Bitart ([place] (5/325)) 1 tab Q6H PRN PO .MOD PAIN 4- 6 Last administered on 11/20/18at 17:10; Admin Dose 1 TAB; Start 11/16/18 at 19:30 Docusate Sodium (Colace) 100 mg Q12H PRN PO .CONSTIPATION; Start 11/16/18 at 19:30 Zolpidem Tartrate (Ambien) 5 mg QHS PRN PO .INSOMNIA Last administered on 11/22/18 23:20; Admin Dose 5 MG; Start 11/16/18 at 19:30 Clotrimazole (Lotrimin Cr) 1 applic BID TOP Last administered on 11/27/18 09:31; Admin Dose 1 APPLIC; Start 11/16/18 at 21:00 Fluticasone/ Vilanterol (Breo Ellipta 100-25 Mcg Inh) 1 inh DAILY INH Last administered on 11/27/18 09:00; Admin Dose 1 INH; Start 11/17/18 at 12:00 Albuterol/ Ipratropium (Duoneb) 3 ml Q4H RESP THERAPY HHN Last administered on 11/27/18 06:17; Admin Dose 3 ML; Start 11/18/18 at 13:00 Insulin Glargine (Lantus) 22 units DAILY@2000 SC Last administered on 11/24/18 20:18; Admin Dose 22 UNITS; Start 11/21/18 at 20:00; Status Hold Metoprolol Tartrate (Lopressor) 5 mg Q4H PRN IV HR>110 Hold SBP<100; Start 11/23/18 at 13:00 Heparin Sodium (Porcine) 250 ml @ 10 mls/hr PER PROTOCOL IV Last administered on 11/27/18 05:39; Admin Dose 7 MLS/HR; Start 11/24/18 at 10:04 IV Flush (NS 10 ml) 10 ml PRN PRN IV IV PROTOCOL; Start 11/24/18 at 16:00 Insulin Aspart (Novolog Insulin Pen) NOVOLOG *MILD* ALGORI... Q4 SC Last administered on 11/27/18 05:37; Admin Dose 1 UNIT; Start 11/24/18 at 21:00 Miscellaneous Information 1 ea NOTE XX ; Start 11/24/18 at 20:30 Glucose (Glutose) 15 gm Q15M PRN PO DECREASED GLUCOSE; Start 11/24/18 at 20:30 Glucose (Glutose) 22.5 gm Q15M PRN PO DECREASED GLUCOSE; Start 11/24/18 at 20:30 Dextrose (D50w Syringe) 25 ml Q15M PRN IV DECREASED GLUCOSE Last administered on 3/7/19at 01:40; Admin Dose 25 ML; Start 11/24/18 at 20:30 Dextrose (D50w Syringe) 50 ml Q15M PRN IV DECREASED GLUCOSE Last administered on 11/25/18at 20:44; Admin Dose 50 ML; Start 11/24/18 at 20:30 Glucagon (Glucagen) 1 mg Q15M PRN IM DECREASED GLUCOSE; Start 11/24/18 at 20:30 Glucose (Glutose) 15 gm Q15M PRN BUCCAL DECREASED GLUCOSE; Start 11/24/18 at 20:30 Levofloxacin/ Dextrose 50 ml @ 50 mls/hr Q48H IVPB Last administered on 11/26/18at 12:48; Admin Dose 50 MLS/HR; Start 11/26/18 at 12:30 Methylprednisolone Sodium Succinate (Solu-Medrol) 30 mg Q8H IV Last administered on 11/27/18at 10:21; Admin Dose 30 MG; Start 11/27/18 at 02:00 GHASSAN SHERMAN 8, 2019 11:19
--- NOTE | 2018-11-27 15:30 | PN ---
Date/Time of Note Date/Time of Note DATE: 11/27/18 TIME: 15:29 Assessment/Plan VTE Prophylaxis Risk score (from Ns)>0 risk: 15 SCD applied (from Ns): Yes Pharmacological prophylaxis: heparin Lines/Catheters IV [facility] Type [facility]from [facility] Noel Urinary Cath still in place: Yes Reason Cath still needed: urinary retention Assessment/Plan Hospital Course 83 yo female with , diastolic CHF with acute respiratory failure and volume overload from CHF and BRIE Patient's family reversed their decision for palliative care. Continue to want aggressive care now but remains DNR Acute respiratory failure 2/2 volume overload: - patient's status has improved, no longer seems at risk for intubation - Continue O2 by NC - Volume removal by HD BRIE: - HD per renal A Fib: - Continue heparin - Digoxin given Cirrhosis Septic encephelopathy, improving Sepsis - Antibiotics per ID DNR Result Diagram: 11/27/18 0557 11/27/18 0557 Results 24hrs Laboratory Tests Test 11/26/18 16:37 11/26/18 17:05 11/26/18 20:08 11/26/18 23:41 Bedside Glucose 107 113 Activated 71.3 *H 56.5 H Partial Thromboplast Time Test 11/27/18 01:03 11/27/18 05:30 11/27/18 05:57 11/27/18 08:10 Bedside Glucose 120 146 White Blood Count 4.3 #L Red Blood Count 3.74 L Hemoglobin 8.4 L Hematocrit 27.1 L Mean Corpuscular Volume 72.5 L Mean Corpuscular 22.5 L Hemoglobin Mean Corpuscular 31.0 L Hemoglobin Concent Red Cell Distribution 19.6 H Width Platelet Count 127 L Mean Platelet Volume 11.2 H Immature Granulocytes % 0.500 H Neutrophils % 92.5 H Lymphocytes % 4.2 L Monocytes % 2.8 Eosinophils % 0.0 Basophils % 0.0 Nucleated Red Blood 0.0 Cells % Immature Granulocytes # 0.020 Neutrophils # 4.0 Lymphocytes # 0.2 L Monocytes # 0.1 L Eosinophils # 0.0 Basophils # 0.0 Nucleated Red Blood 0.0 Cells # Sodium Level 139 Potassium Level 5.3 H Chloride Level 102 Carbon Dioxide Level 24 Anion Gap 13 Blood Urea Nitrogen 60 H Creatinine 3.79 H Est Glomerular Filtrat Rate mL/min Glucose Level 129 # Calcium Level 8.5 Activated 82.4 *H Partial Thromboplast Time Test 11/27/18 09:35 Bedside Glucose 136 Subjective 24 Hr Interval Summary Free Text/Dictation Passed swallow study Again more alert today, interacive. Breathing comfortably UOP improving Exam/Review of Systems Exam Vitals Vital Signs Date Temp Pulse Resp B/P (MAP) Pulse Ox O2 O2 Flow FiO2 Time Delivery Rate 11/27/18 108 20 99 Nasal 2.0 13:45 Cannula 11/27/18 159/87 13:00 (111) 11/27/18 98.0 12:00 11/27/18 21 08:50 Intake and Output 11/26/18 11/26/18 11/27/18 1414:59 22:59 06:59 IntakeIntake Total 398 ml 43 ml 57 ml OutputOutput Total 235 ml 340 ml 710 ml BalanceBalance 163 ml -297 ml -653 ml Exam Alert, disoriented aside from "hospital" Breahting comfortably No distress RRR + JVD Results Results 24hrs Laboratory Tests Test 11/26/18 16:37 11/26/18 17:05 11/26/18 20:08 11/26/18 23:41 Bedside Glucose 107 113 Activated 71.3 *H 56.5 H Partial Thromboplast Time Test 11/27/18 01:03 11/27/18 05:30 11/27/18 05:57 11/27/18 08:10 Bedside Glucose 120 146 White Blood Count 4.3 #L Red Blood Count 3.74 L Hemoglobin 8.4 L Hematocrit 27.1 L Mean Corpuscular Volume 72.5 L Mean Corpuscular 22.5 L Hemoglobin Mean Corpuscular 31.0 L Hemoglobin Concent Red Cell Distribution 19.6 H Width Platelet Count 127 L Mean Platelet Volume 11.2 H Immature Granulocytes % 0.500 H Neutrophils % 92.5 H Lymphocytes % 4.2 L Monocytes % 2.8 Eosinophils % 0.0 Basophils % 0.0 Nucleated Red Blood 0.0 Cells % Immature Granulocytes # 0.020 Neutrophils # 4.0 Lymphocytes # 0.2 L Monocytes # 0.1 L Eosinophils # 0.0 Basophils # 0.0 Nucleated Red Blood 0.0 Cells # Sodium Level 139 Potassium Level 5.3 H Chloride Level 102 Carbon Dioxide Level 24 Anion Gap 13 Blood Urea Nitrogen 60 H Creatinine 3.79 H Est Glomerular Filtrat Rate mL/min Glucose Level 129 # Calcium Level 8.5 Activated 82.4 *H Partial Thromboplast Time Test 11/27/18 09:35 Bedside Glucose 136 Medications Medication Current Medications IV Flush (NS 3 ml) 3 ml PER PROTOCOL IV ; Start 11/16/18 at 19:30 Ondansetron HCl (Zofran Inj) 4 mg Q6H PRN IV NAUSEA/VOMITING; Start 11/16/18 at 19:30 Acetaminophen (Tylenol Tab) 650 mg Q6H PRN PO .PAIN 1-3 OR TEMP; Start 11/16/18 at 19:30 Acetaminophen/ Hydrocodone Bitart ([place] (5/325)) 1 tab Q6H PRN PO .MOD PAIN 4- 6 Last administered on 11/20/18 17:10; Admin Dose 1 TAB; Start 11/16/18 at 19:30 Docusate Sodium (Colace) 100 mg Q12H PRN PO .CONSTIPATION; Start 11/16/18 at 19:30 Zolpidem Tartrate (Ambien) 5 mg QHS PRN PO .INSOMNIA Last administered on 11/22/18 23:20; Admin Dose 5 MG; Start 11/16/18 at 19:30 Clotrimazole (Lotrimin Cr) 1 applic BID TOP Last administered on 11/27/18 09:31; Admin Dose 1 APPLIC; Start 11/16/18 at 21:00 Fluticasone/ Vilanterol (Breo Ellipta 100-25 Mcg Inh) 1 inh DAILY INH Last administered on 11/27/18 09:00; Admin Dose 1 INH; Start 11/17/18 at 12:00 Albuterol/ Ipratropium (Duoneb) 3 ml Q4H RESP THERAPY HHN Last administered on 11/27/18 13:44; Admin Dose 3 ML; Start 11/18/18 at 13:00 Insulin Glargine (Lantus) 22 units DAILY@2000 SC Last administered on 11/24/18 20:18; Admin Dose 22 UNITS; Start 11/21/18 at 20:00; Status Hold Metoprolol Tartrate (Lopressor) 5 mg Q4H PRN IV HR>110 Hold SBP<100; Start 11/23/18 at 13:00 Heparin Sodium (Porcine) 250 ml @ 10 mls/hr PER PROTOCOL IV Last administered on 11/27/18at 05:39; Admin Dose 7 MLS/HR; Start 11/24/18 at 10:04 IV Flush (NS 10 ml) 10 ml PRN PRN IV IV PROTOCOL; Start 11/24/18 at 16:00 Insulin Aspart (Novolog Insulin Pen) NOVOLOG *MILD* ALGORI... Q4 SC Last administered on 11/27/18at 05:37; Admin Dose 1 UNIT; Start 11/24/18 at 21:00 Miscellaneous Information 1 ea NOTE XX ; Start 11/24/18 at 20:30 Glucose (Glutose) 15 gm Q15M PRN PO DECREASED GLUCOSE; Start 11/24/18 at 20:30 Glucose (Glutose) 22.5 gm Q15M PRN PO DECREASED GLUCOSE; Start 11/24/18 at 20:30 Dextrose (D50w Syringe) 25 ml Q15M PRN IV DECREASED GLUCOSE Last administered on 11/26/18at 01:40; Admin Dose 25 ML; Start 11/24/18 at 20:30 Dextrose (D50w Syringe) 50 ml Q15M PRN IV DECREASED GLUCOSE Last administered on 11/25/18at 20:44; Admin Dose 50 ML; Start 11/24/18 at 20:30 Glucagon (Glucagen) 1 mg Q15M PRN IM DECREASED GLUCOSE; Start 11/24/18 at 20:30 Glucose (Glutose) 15 gm Q15M PRN BUCCAL DECREASED GLUCOSE; Start 11/24/18 at 20:30 Levofloxacin/ Dextrose 50 ml @ 50 mls/hr Q48H IVPB Last administered on 11/26/18at 12:48; Admin Dose 50 MLS/HR; Start 11/26/18 at 12:30 Methylprednisolone Sodium Succinate (Solu-Medrol) 30 mg Q8H IV Last administered on 11/27/18at 10:21; Admin Dose 30 MG; Start 11/27/18 at 02:00 HARIS GREEN MD Nov 27, 2018 15:30
--- NOTE | 2018-11-27 15:48 | CONS ---
Assessment/Plan Assessment/Plan Hospital Course (Demo Recall) No acute events overnight patient is lying comfortably in bed no fevers. WBC today 4.3 H&H 8.4 and 27.1 platelets 127 neutrophils 92.5 BUN 60 creatinine 3.79 Antimicrobial: levofloxacin Indwelling: Right femoral Noel, Soto catheter. PICC Physical examination: Well-developed morbidly obese -Stateless woman who in no distress. Head atraumatic normocephalic sclera nonicteric. Neck is supple. Chest rise symmetrical breath sounds diminished to bases. Heart: S1- S2.. Abdomen obese soft, bowel sounds present. Extremities: Bilateral lower extremities edema erythema and multiple wounds Assessment: 1. Acute hypoxemic respiratory failure secondary to pulmonary edema and CHF exacerbation, poss PNA 2. Sepsis, present on admission 3. 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 Urinary tract infection 5. Staph bacteremia consistent with contaminant 6. Morbid obesity 7. Atrial fibrillation 8. Diabetes 9. Acute kidney failure Plan: Remains stable on nasal cannula, continue present care [facility] staff Consultation Date/Type/Reason Admit Date/Time Nov 16, 2018 at 17:17 Initial Consult Date Type of Consult id Requesting Provider: JABIER SEBASTIAN Date/Time of Note DATE: 11/27/18 TIME: 15:46 Exam/Review of Systems Exam Vitals Vital Signs Date Temp Pulse Resp B/P (MAP) Pulse Ox O2 O2 Flow FiO2 Time Delivery Rate 11/27/18 108 20 99 Nasal 2.0 13:45 Cannula 11/27/18 159/87 13:00 (111) 11/27/18 98.0 12:00 11/27/18 21 08:50 Intake and Output 11/26/18 11/26/18 11/27/18 1414:59 22:59 06:59 IntakeIntake Total 398 ml 43 ml 57 ml OutputOutput Total 235 ml 340 ml 710 ml BalanceBalance 163 ml -297 ml -653 ml Results Result Diagram: 11/27/18 0557 11/27/18 0557 Results 24hrs Laboratory Tests Test 11/26/18 16:37 11/26/18 17:05 11/26/18 20:08 11/26/18 23:41 Bedside Glucose 107 113 Activated 71.3 *H 56.5 H Partial Thromboplast Time Test 11/27/18 01:03 11/27/18 05:30 11/27/18 05:57 11/27/18 08:10 Bedside Glucose 120 146 White Blood Count 4.3 #L Red Blood Count 3.74 L Hemoglobin 8.4 L Hematocrit 27.1 L Mean Corpuscular Volume 72.5 L Mean Corpuscular 22.5 L Hemoglobin Mean Corpuscular 31.0 L Hemoglobin Concent Red Cell Distribution 19.6 H Width Platelet Count 127 L Mean Platelet Volume 11.2 H Immature Granulocytes % 0.500 H Neutrophils % 92.5 H Lymphocytes % 4.2 L Monocytes % 2.8 Eosinophils % 0.0 Basophils % 0.0 Nucleated Red Blood 0.0 Cells % Immature Granulocytes # 0.020 Neutrophils # 4.0 Lymphocytes # 0.2 L Monocytes # 0.1 L Eosinophils # 0.0 Basophils # 0.0 Nucleated Red Blood 0.0 Cells # Sodium Level 139 Potassium Level 5.3 H Chloride Level 102 Carbon Dioxide Level 24 Anion Gap 13 Blood Urea Nitrogen 60 H Creatinine 3.79 H Est Glomerular Filtrat Rate mL/min Glucose Level 129 # Calcium Level 8.5 Activated 82.4 *H Partial Thromboplast Time Test 11/27/18 09:35 Bedside Glucose 136 Medications Medication Current Medications IV Flush (NS 3 ml) 3 ml PER PROTOCOL IV ; Start 11/16/18 at 19:30 Ondansetron HCl (Zofran Inj) 4 mg Q6H PRN IV NAUSEA/VOMITING; Start 11/16/18 at 19:30 Acetaminophen (Tylenol Tab) 650 mg Q6H PRN PO .PAIN 1-3 OR TEMP; Start 11/16/18 at 19:30 Acetaminophen/ Hydrocodone Bitart ([place] (5/325)) 1 tab Q6H PRN PO .MOD PAIN 4- 6 Last administered on 11/20/18at 17:10; Admin Dose 1 TAB; Start 11/16/18 at 19:30 Docusate Sodium (Colace) 100 mg Q12H PRN PO .CONSTIPATION; Start 11/16/18 at 19:30 Zolpidem Tartrate (Ambien) 5 mg QHS PRN PO .INSOMNIA Last administered on 11/22/18at 23:20; Admin Dose 5 MG; Start 11/16/18 at 19:30 Clotrimazole (Lotrimin Cr) 1 applic BID TOP Last administered on 11/27/18 09:31; Admin Dose 1 APPLIC; Start 11/16/18 at 21:00 Fluticasone/ Vilanterol (Breo Ellipta 100-25 Mcg Inh) 1 inh DAILY INH Last administered on 11/27/18 09:00; Admin Dose 1 INH; Start 11/17/18 at 12:00 Albuterol/ Ipratropium (Duoneb) 3 ml Q4H RESP THERAPY HHN Last administered on 11/27/18 13:44; Admin Dose 3 ML; Start 11/18/18 at 13:00 Insulin Glargine (Lantus) 22 units DAILY@2000 SC Last administered on 11/24/18 20:18; Admin Dose 22 UNITS; Start 11/21/18 at 20:00; Status Hold Metoprolol Tartrate (Lopressor) 5 mg Q4H PRN IV HR>110 Hold SBP<100; Start 11/23/18 at 13:00 Heparin Sodium (Porcine) 250 ml @ 10 mls/hr PER PROTOCOL IV Last administered on 11/27/18 05:39; Admin Dose 7 MLS/HR; Start 11/24/18 at 10:04 IV Flush (NS 10 ml) 10 ml PRN PRN IV IV PROTOCOL; Start 11/24/18 at 16:00 Insulin Aspart (Novolog Insulin Pen) NOVOLOG *MILD* ALGORI... Q4 SC Last administered on 11/27/18 05:37; Admin Dose 1 UNIT; Start 11/24/18 at 21:00 Miscellaneous Information 1 ea NOTE XX ; Start 11/24/18 at 20:30 Glucose (Glutose) 15 gm Q15M PRN PO DECREASED GLUCOSE; Start 11/24/18 at 20:30 Glucose (Glutose) 22.5 gm Q15M PRN PO DECREASED GLUCOSE; Start 11/24/18 at 20:30 Dextrose (D50w Syringe) 25 ml Q15M PRN IV DECREASED GLUCOSE Last administered on 11/26/18 01:40; Admin Dose 25 ML; Start 11/24/18 at 20:30 Dextrose (D50w Syringe) 50 ml Q15M PRN IV DECREASED GLUCOSE Last administered on 11/25/18 20:44; Admin Dose 50 ML; Start 11/24/18 at 20:30 Glucagon (Glucagen) 1 mg Q15M PRN IM DECREASED GLUCOSE; Start 11/24/18 at 20:30 Glucose (Glutose) 15 gm Q15M PRN BUCCAL DECREASED GLUCOSE; Start 11/24/18 at 20:30 Levofloxacin/ Dextrose 50 ml @ 50 mls/hr Q48H IVPB Last administered on 11/26/18at 12:48; Admin Dose 50 MLS/HR; Start 11/26/18 at 12:30 Methylprednisolone Sodium Succinate (Solu-Medrol) 30 mg Q8H IV Last administered on 11/27/18at 10:21; Admin Dose 30 MG; Start 11/27/18 at 02:00 ROCHELLE STERLING NP Nov 27, 2018 15:47
[2018-11-27] MEDS: INSULIN GLARGINE [LANTus] (100 UNITS/ML) SYG SC SCH (21:44)
[2018-11-28] VITALS (24 sets, daily range): BP systolic 118–164; BP diastolic 56–111; PULSE 86–112; RESP 12–28
[2018-11-28] MEDS: ALBUTEROL/IPRATROPIUM (NEB) 3 ML AMP HHN SCH ×6 (01:17→20:04)
[2018-11-28] MEDS: INSULIN ASPART [NOVOLOG] 3 ML PEN SC SCH ×5 (01:52→21:00)
[2018-11-28] MEDS: METHYLPREDNISOLONE 40 MG INJ IV SCH ×2 (01:53→09:43)
--- NOTE | 2018-11-28 06:32 | CONS ---
Assessment/Plan Assessment/Plan Assessment/Plan (Daily) Follow-up note on this 85-year-old female who is in the intensive care unit [facility]. The last time I saw patient I had an extensive conversation with the family members and they had decided to DO NOT RESUSCITATE no cardiopulmonary resuscitation but intubation if necessary. In the interim patient has received hemodialysis and has significantly improved. There are no family members at the bedside. I will continue to follow patient he family members informed of her underlying major medical condition. This particular family will need much support and education prior to the time the patient is discharged from this hospital. Assessment/Plan Assessment/Plan Assessment/Plan (Daily) Reviewed notes from critical care physicians. There is been no significant change in overall clinical status although she appears to be more somnolent and encephalopathic today. She is receiving hemodialysis on broad-spectrum IV antibiotic coverage and aggressive intervention for congestive heart failure including dialysis. This morning I will be speaking to family members once again if necessary my understanding is patient's daughter will be arriving today we will update her current condition, family will need much support. It was very difficult for them to change her CODE STATUS to DNR and not to proceed with cardiopulmonary resuscitation. Consultation Date/Type/Reason Admit Date/Time Nov 16, 2018 at 17:17 Initial Consult Date Requesting Provider: JABIER SEBASTIAN Date/Time of Note DATE: 11/28/18 TIME: 06:32 Exam/Review of Systems Exam Vitals Vital Signs Date Temp Pulse Resp B/P (MAP) Pulse Ox O2 O2 Flow FiO2 Time Delivery Rate 11/28/18 109 14 129/79 93 Room Air 05:00 (96) 11/28/18 98.5 04:00 11/28/18 2.0 27 01:30 Intake and Output 11/27/18 11/27/18 11/28/18 1515:00 23:00 07:00 IntakeIntake Total 49 ml 271 ml 15 ml OutputOutput Total 2925 ml 255 ml 175 ml BalanceBalance -2876 ml 16 ml -160 ml Results Result Diagram: 11/28/18 0436 11/28/18 0436 Results 24hrs Laboratory Tests Test 11/27/18 08:10 11/27/18 09:35 11/27/18 15:03 11/27/18 17:45 Activated 82.4 *H 100.4 *H Partial Thromboplast Time Bedside Glucose 136 151 Test 11/27/18 20:35 11/27/18 21:40 11/27/18 22:56 11/28/18 01:48 Bedside Glucose 160 178 231 H Activated 60.9 H Partial Thromboplast Time Test 11/28/18 04:22 11/28/18 04:36 Bedside Glucose 251 H White Blood Count 2.4 #L Red Blood Count 3.37 L Hemoglobin 7.6 L Hematocrit 23.9 L Mean Corpuscular Volume 70.9 L Mean Corpuscular 22.6 L Hemoglobin Mean Corpuscular 31.8 L Hemoglobin Concent Red Cell Distribution 19.4 H Width Platelet Count 112 L Mean Platelet Volume Immature Granulocytes % 0.400 Neutrophils % 88.0 H Lymphocytes % 8.3 L Monocytes % 3.3 Eosinophils % 0.0 Basophils % 0.0 Nucleated Red Blood 0.0 Cells % Immature Granulocytes # 0.010 Neutrophils # 2.1 Lymphocytes # 0.2 L Monocytes # 0.1 L Eosinophils # 0.0 Basophils # 0.0 Nucleated Red Blood 0.0 Cells # Sodium Level 141 Potassium Level 4.8 Chloride Level 103 Carbon Dioxide Level 27 Anion Gap 11 Blood Urea Nitrogen 53 H Creatinine 2.86 H Est Glomerular Filtrat Rate mL/min Glucose Level 239 #H Calcium Level 8.9 Phosphorus Level 5.5 H Magnesium Level 2.2 Medications Medication Current Medications IV Flush (NS 3 ml) 3 ml PER PROTOCOL IV ; Start 11/16/18 at 19:30 Ondansetron HCl (Zofran Inj) 4 mg Q6H PRN IV NAUSEA/VOMITING; Start 11/16/18 at 19:30 Acetaminophen (Tylenol Tab) 650 mg Q6H PRN PO .PAIN 1-3 OR TEMP; Start 11/16/18 at 19:30 Acetaminophen/ Hydrocodone Bitart ([place] (5/325)) 1 tab Q6H PRN PO .MOD PAIN 4- 6 Last administered on 11/20/18 17:10; Admin Dose 1 TAB; Start 11/16/18 at 19:30 Docusate Sodium (Colace) 100 mg Q12H PRN PO .CONSTIPATION; Start 11/16/18 at 19:30 Zolpidem Tartrate (Ambien) 5 mg QHS PRN PO .INSOMNIA Last administered on 11/22/18 23:20; Admin Dose 5 MG; Start 11/16/18 at 19:30 Clotrimazole (Lotrimin Cr) 1 applic BID TOP Last administered on 11/27/18 20:37; Admin Dose 1 APPLIC; Start 11/16/18 at 21:00 Fluticasone/ Vilanterol (Breo Ellipta 100-25 Mcg Inh) 1 inh DAILY INH Last administered on 11/27/18 09:00; Admin Dose 1 INH; Start 11/17/18 at 12:00 Albuterol/ Ipratropium (Duoneb) 3 ml Q4H RESP THERAPY HHN Last administered on 11/28/18 05:47; Admin Dose 3 ML; Start 11/18/18 at 13:00 Insulin Glargine (Lantus) 22 units DAILY@2000 SC Last administered on 11/27/18 21:44; Admin Dose 22 UNITS; Start 11/21/18 at 20:00 Metoprolol Tartrate (Lopressor) 5 mg Q4H PRN IV HR>110 Hold SBP<100; Start 11/23/18 at 13:00 Heparin Sodium (Porcine) 250 ml @ 10 mls/hr PER PROTOCOL IV Last administered on 11/27/18 05:39; Admin Dose 7 MLS/HR; Start 11/24/18 at 10:04 IV Flush (NS 10 ml) 10 ml PRN PRN IV IV PROTOCOL; Start 11/24/18 at 16:00 Insulin Aspart (Novolog Insulin Pen) NOVOLOG *MILD* ALGORI... Q4 SC Last administered on 11/28/18 04:25; Admin Dose 3 UNIT; Start 11/24/18 at 21:00 Miscellaneous Information 1 ea NOTE XX ; Start 11/24/18 at 20:30 Glucose (Glutose) 15 gm Q15M PRN PO DECREASED GLUCOSE; Start 11/24/18 at 20:30 Glucose (Glutose) 22.5 gm Q15M PRN PO DECREASED GLUCOSE; Start 11/24/18 at 20:30 Dextrose (D50w Syringe) 25 ml Q15M PRN IV DECREASED GLUCOSE Last administered on 11/26/18at 01:40; Admin Dose 25 ML; Start 11/24/18 at 20:30 Dextrose (D50w Syringe) 50 ml Q15M PRN IV DECREASED GLUCOSE Last administered on 11/25/18at 20:44; Admin Dose 50 ML; Start 11/24/18 at 20:30 Glucagon (Glucagen) 1 mg Q15M PRN IM DECREASED GLUCOSE; Start 11/24/18 at 20:30 Glucose (Glutose) 15 gm Q15M PRN BUCCAL DECREASED GLUCOSE; Start 11/24/18 at 20:30 Levofloxacin/ Dextrose 50 ml @ 50 mls/hr Q48H IVPB Last administered on 11/26/18at 12:48; Admin Dose 50 MLS/HR; Start 11/26/18 at 12:30 Methylprednisolone Sodium Succinate (Solu-Medrol) 30 mg Q8H IV Last administered on 11/28/18at 01:53; Admin Dose 30 MG; Start 11/27/18 at 02:00 MINI PAEZ Nov 28, 2018 06:32
[2018-11-28] MEDS: FLUTICASONE/VILANTEROL 100-25 INH SCH (09:44)
[2018-11-28] MEDS: CLOTRIMAZOLE 1% 30 GM CR TOP SCH ×2 (09:44→20:18)
--- NOTE | 2018-11-28 09:47 | CONS ---
Consult Date/Type/Reason Admit Date/Time Nov 16, 2018 at 17:17 Initial Consult Date Type of Consult Pulmonary Requesting Provider: JABIER SEBASTIAN Date/Time of Note DATE: 11/28/18 TIME: 09:45 Subjective Continues to improve with hemodialysis. Awake alert comfortable this morning on nasal cannula O2. Objective Vital Signs Date Temp Pulse Resp B/P (MAP) Pulse Ox O2 O2 Flow FiO2 Time Delivery Rate 11/28/18 105 08:00 11/28/18 24 126/74 95 Nasal 06:00 (91) Cannula 11/28/18 98.5 04:00 11/28/18 2.0 27 01:30 Intake and Output 11/27/18 11/27/18 11/28/18 1515:00 23:00 07:00 IntakeIntake Total 49 ml 271 ml 35 ml OutputOutput Total 2925 ml 255 ml 175 ml BalanceBalance -2876 ml 16 ml -140 ml Exam GENERAL: Elderly lady appears comfortable at rest no acute distress VITAL SIGNS: per chart NECK: Supple. No JVD or lymphadenopathy. CARDIAC EXAM: S1, S2. No added sounds or murmurs. CHEST: clear bilaterally, No added sounds, rales or wheezes ABDOMEN: Soft, nontender. No guarding or rebound. EXTREMITIES: No cyanosis, clubbing edema +1 NEUROLOGIC: Generalized weakness. No focal deficits. Vent Setting Fraction of Inspired Oxygen pe: 27 Results/Medications Result Diagram: 11/28/18 0436 11/28/18 0436 Results 24 hrs Laboratory Tests Test 11/27/18 15:03 11/27/18 17:45 11/27/18 20:35 11/27/18 21:40 Activated 100.4 *H Partial Thromboplast Time Bedside Glucose 151 160 178 Test 11/27/18 22:56 11/28/18 01:48 11/28/18 04:22 11/28/18 04:36 Activated 60.9 H Partial Thromboplast Time Bedside Glucose 231 H 251 H White Blood Count 2.4 #L Red Blood Count 3.37 L Hemoglobin 7.6 L Hematocrit 23.9 L Mean Corpuscular Volume 70.9 L Mean Corpuscular 22.6 L Hemoglobin Mean Corpuscular 31.8 L Hemoglobin Concent Red Cell Distribution 19.4 H Width Platelet Count 112 L Mean Platelet Volume Immature Granulocytes % 0.400 Neutrophils % 88.0 H Lymphocytes % 8.3 L Monocytes % 3.3 Eosinophils % 0.0 Basophils % 0.0 Nucleated Red Blood 0.0 Cells % Immature Granulocytes # 0.010 Neutrophils # 2.1 Lymphocytes # 0.2 L Monocytes # 0.1 L Eosinophils # 0.0 Basophils # 0.0 Nucleated Red Blood 0.0 Cells # Sodium Level 141 Potassium Level 4.8 Chloride Level 103 Carbon Dioxide Level 27 Anion Gap 11 Blood Urea Nitrogen 53 H Creatinine 2.86 H Est Glomerular Filtrat Rate mL/min Glucose Level 239 #H Calcium Level 8.9 Phosphorus Level 5.5 H Magnesium Level 2.2 Test 11/28/18 05:53 Activated 54.8 H Partial Thromboplast Time Medications Current Medications IV Flush (NS 3 ml) 3 ml PER PROTOCOL IV ; Start 11/16/18 at 19:30 Ondansetron HCl (Zofran Inj) 4 mg Q6H PRN IV NAUSEA/VOMITING; Start 11/16/18 at 19:30 Acetaminophen (Tylenol Tab) 650 mg Q6H PRN PO .PAIN 1-3 OR TEMP; Start 11/16/18 at 19:30 Acetaminophen/ Hydrocodone Bitart ([place] (5/325)) 1 tab Q6H PRN PO .MOD PAIN 4- 6 Last administered on 11/20/18 17:10; Admin Dose 1 TAB; Start 11/16/18 at 19:30 Docusate Sodium (Colace) 100 mg Q12H PRN PO .CONSTIPATION; Start 11/16/18 at 19:30 Zolpidem Tartrate (Ambien) 5 mg QHS PRN PO .INSOMNIA Last administered on 11/22/18 23:20; Admin Dose 5 MG; Start 11/16/18 at 19:30 Clotrimazole (Lotrimin Cr) 1 applic BID TOP Last administered on 11/27/18 20:37; Admin Dose 1 APPLIC; Start 11/16/18 at 21:00 Fluticasone/ Vilanterol (Breo Ellipta 100-25 Mcg Inh) 1 inh DAILY INH Last administered on 11/27/18 09:00; Admin Dose 1 INH; Start 11/17/18 at 12:00 Albuterol/ Ipratropium (Duoneb) 3 ml Q4H RESP THERAPY HHN Last administered on 11/28/18 05:47; Admin Dose 3 ML; Start 11/18/18 at 13:00 Insulin Glargine (Lantus) 22 units DAILY@2000 SC Last administered on 11/27/18 21:44; Admin Dose 22 UNITS; Start 11/21/18 at 20:00 Metoprolol Tartrate (Lopressor) 5 mg Q4H PRN IV HR>110 Hold SBP<100; Start 11/23/18 at 13:00 Heparin Sodium (Porcine) 250 ml @ 0 mls/hr PER PROTOCOL IV Last administered on 11/27/18 05:39; Admin Dose 7 MLS/HR; Start 11/24/18 at 10:04 IV Flush (NS 10 ml) 10 ml PRN PRN IV IV PROTOCOL; Start 11/24/18 at 16:00 Miscellaneous Information 1 ea NOTE XX ; Start 11/24/18 at 20:30 Glucose (Glutose) 15 gm Q15M PRN PO DECREASED GLUCOSE; Start 11/24/18 at 20:30 Glucose (Glutose) 22.5 gm Q15M PRN PO DECREASED GLUCOSE; Start 11/24/18 at 20:30 Dextrose (D50w Syringe) 25 ml Q15M PRN IV DECREASED GLUCOSE Last administered on 11/26/18 01:40; Admin Dose 25 ML; Start 11/24/18 at 20:30 Dextrose (D50w Syringe) 50 ml Q15M PRN IV DECREASED GLUCOSE Last administered on 11/25/18 20:44; Admin Dose 50 ML; Start 11/24/18 at 20:30 Glucagon (Glucagen) 1 mg Q15M PRN IM DECREASED GLUCOSE; Start 11/24/18 at 20:30 Glucose (Glutose) 15 gm Q15M PRN BUCCAL DECREASED GLUCOSE; Start 11/24/18 at 20:30 Levofloxacin/ Dextrose 50 ml @ 50 mls/hr Q48H IVPB Last administered on 11/26/18 12:48; Admin Dose 50 MLS/HR; Start 11/26/18 at 12:30 Methylprednisolone Sodium Succinate (Solu-Medrol) 30 mg Q8H IV Last administered on 11/28/18 01:53; Admin Dose 30 MG; Start 11/27/18 at 02:00 Diagnostic Test (Pha) (Accu-Chek) 1 ea 02 XX ; Start 11/29/18 at 02:00 Insulin Aspart (Novolog Insulin Pen) NOVOLOG *MILD* ALGORITHM WITH MEALS BEDTIME SC ; Start 11/28/18 at 11:30 Assessment/Plan Hospital Course (Demo Recall) Assessment 1. Status post acute hypoxemic respiratory failure secondary to volume overload 2. Acute renal failure now hemodialysis dependent 3. History of pulmonary embolus on Eliquis 4. Congestive cardiac failure with aortic stenosis 5. Encephalopathy toxic metabolic now resolving Plan 1. Continue hemodialysis per nephrology 2. Monitor H&H consider iron replacement or Epogen 3. Aspiration precautions 4. Wound care 5. PT evaluation The patient stable for transfer to telemetry Critical care time 40 minutes PATTI FRANKS MD, [facility] Nov 28, 2018 09:47
--- NOTE | 2018-11-28 10:38 | PN ---
DATE: 11/28/2018 SUBJECTIVE: The patient had hemodialysis yesterday, tolerated well. No other events noted. OBJECTIVE: VITAL SIGNS: Blood pressure is 125/74, respirations 24, pulse 71, temperature is 98.5. HEENT: Head is normocephalic. NECK: Supple. HEART: Regular rate. LUNGS: Show diminished breath sounds at the base. ABDOMEN: Soft, nontender to palpation. No rebound or guarding. EXTREMITIES: Negative for clubbing, cyanosis. Trace edema. DERMATOLOGIC: No rashes. MUSCULOSKELETAL: No joint effusions. NEUROLOGIC: No change in exam. MEDICATIONS: Reviewed. LABORATORY DATA: Shows white count 2.4, hemoglobin 7.6, platelet count is 112. Sodium 141, potassiu m 4.8, BUN 53, creatinine 2.86, phosphorus 5.5. ASSESSMENT AND PLAN: 1. Oligouric acute kidney injury on top of chronic kidney disease with previous baseline creatinine of 1.5 mg/dL. Etiology of current acute kidney injury was secondary to hemodynamics, possible cardio renal syndrome. The patient was initiated on hemodialysis. At this point, we will continue to monit or renal function closely. Monitor for any signs of renal recovery. 2. Hyperkalemia, improved. Continue to monitor. Continue intermittent dialysis as needed. 3. Volume overload, improving with hemodialysis. Will monitor urinary output closely. 4. Acute respiratory failure secondary to congestive heart failure exacerbation, COPD. The patient is currently stable on nasal cannula. Continue medical management. 5. Atrial fibrillation. Continue current treatment plan. 5. Diabetes. Continue current insulin regimen. 6. Acute encephalopathy. Etiology is toxic metabolic. 7. Obesity. Continue dietary modification. 8. Aortic stenosis. Continue to monitor. Follow up with cardiology. Dictated By: JOCELINE OLEA/NTS Conf#: [id number] DID#: [id number] CC: JABIER SEBASTIAN MD;*End*
--- NOTE | 2018-11-28 12:37 | CONS ---
Assessment/Plan Assessment/Plan Hospital Course (Demo Recall) No acute changes overnight patient looks comfortable in no distress no fevers WBC 2.4 platelets 112 neutrophils 88 Antimicrobial: levofloxacin Indwelling: Right femoral Noel, Soto catheter. PICC Physical examination: Well-developed morbidly obese -[place] woman who in no distress. Head atraumatic normocephalic sclera nonicteric. Neck is supple. Chest rise symmetrical breath sounds diminished to bases. Heart: S1- S2.. Abdomen obese soft, bowel sounds present. Extremities: Bilateral lower extremities edema erythema and multiple wounds Assessment: 1. Acute hypoxemic respiratory failure secondary to pulmonary edema and CHF exacerbation 2. Sepsis, present on admission 3. 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 Urinary tract infection 5. Staph bacteremia consistent with contaminant 6. Morbid obesity 7. Atrial fibrillation 8. Diabetes 9. Acute kidney failure==> on HD 7. Pancytopenia Plan: Remains unchanged, continue present care, local wound care, pulmonary rec- s, HD per renal DW staff Consultation Date/Type/Reason Admit Date/Time Nov 16, 2018 at 17:17 Initial Consult Date Type of Consult id Requesting Provider: JABIER SEBASTIAN Date/Time of Note DATE: 11/28/18 TIME: 12:36 Exam/Review of Systems Exam Vitals Vital Signs Date Temp Pulse Resp B/P (MAP) Pulse Ox O2 O2 Flow FiO2 Time Delivery Rate 11/28/18 105 22 100 Nasal 2.0 28 12:15 Cannula 11/28/18 148/80 10:00 (102) 11/28/18 97.9 08:00 Intake and Output 11/27/18 11/27/18 11/28/18 1515:00 23:00 07:00 IntakeIntake Total 49 ml 271 ml 40 ml OutputOutput Total 2925 ml 255 ml 175 ml BalanceBalance -2876 ml 16 ml -135 ml Results Result Diagram: 11/28/18 0436 11/28/18 0436 Results 24hrs Laboratory Tests Test 11/27/18 15:03 11/27/18 17:45 11/27/18 20:35 11/27/18 21:40 Activated 100.4 *H Partial Thromboplast Time Bedside Glucose 151 160 178 Test 11/27/18 22:56 11/28/18 01:48 11/28/18 04:22 11/28/18 04:36 Activated 60.9 H Partial Thromboplast Time Bedside Glucose 231 H 251 H White Blood Count 2.4 #L Red Blood Count 3.37 L Hemoglobin 7.6 L Hematocrit 23.9 L Mean Corpuscular Volume 70.9 L Mean Corpuscular 22.6 L Hemoglobin Mean Corpuscular 31.8 L Hemoglobin Concent Red Cell Distribution 19.4 H Width Platelet Count 112 L Mean Platelet Volume Immature Granulocytes % 0.400 Neutrophils % 88.0 H Lymphocytes % 8.3 L Monocytes % 3.3 Eosinophils % 0.0 Basophils % 0.0 Nucleated Red Blood 0.0 Cells % Immature Granulocytes # 0.010 Neutrophils # 2.1 Lymphocytes # 0.2 L Monocytes # 0.1 L Eosinophils # 0.0 Basophils # 0.0 Nucleated Red Blood 0.0 Cells # Sodium Level 141 Potassium Level 4.8 Chloride Level 103 Carbon Dioxide Level 27 Anion Gap 11 Blood Urea Nitrogen 53 H Creatinine 2.86 H Est Glomerular Filtrat Rate mL/min Glucose Level 239 #H Calcium Level 8.9 Phosphorus Level 5.5 H Magnesium Level 2.2 Test 11/28/18 05:53 Activated 54.8 H Partial Thromboplast Time Medications Medication Current Medications IV Flush (NS 3 ml) 3 ml PER PROTOCOL IV ; Start 11/16/18 at 19:30 Ondansetron HCl (Zofran Inj) 4 mg Q6H PRN IV NAUSEA/VOMITING; Start 11/16/18 at 19:30 Acetaminophen (Tylenol Tab) 650 mg Q6H PRN PO .PAIN 1-3 OR TEMP; Start 11/16/18 at 19:30 Acetaminophen/ Hydrocodone Bitart ([place] (5/325)) 1 tab Q6H PRN PO .MOD PAIN 4- 6 Last administered on 11/20/18at 17:10; Admin Dose 1 TAB; Start 11/16/18 at 19:30 Docusate Sodium (Colace) 100 mg Q12H PRN PO .CONSTIPATION; Start 11/16/18 at 19:30 Zolpidem Tartrate (Ambien) 5 mg QHS PRN PO .INSOMNIA Last administered on 11/22/18at 23:20; Admin Dose 5 MG; Start 11/16/18 at 19:30 Clotrimazole (Lotrimin Cr) 1 applic BID TOP Last administered on 3/9/19at 09:44; Admin Dose 1 APPLIC; Start 11/16/18 at 21:00 Fluticasone/ Vilanterol (Breo Ellipta 100-25 Mcg Inh) 1 inh DAILY INH Last administered on 11/28/18 09:44; Admin Dose 1 INH; Start 11/17/18 at 12:00 Albuterol/ Ipratropium (Duoneb) 3 ml Q4H RESP THERAPY HHN Last administered on 11/28/18 12:14; Admin Dose 3 ML; Start 11/18/18 at 13:00 Insulin Glargine (Lantus) 22 units DAILY@2000 SC Last administered on 11/27/18 21:44; Admin Dose 22 UNITS; Start 11/21/18 at 20:00 Metoprolol Tartrate (Lopressor) 5 mg Q4H PRN IV HR>110 Hold SBP<100; Start 11/23/18 at 13:00 Heparin Sodium (Porcine) 250 ml @ 0 mls/hr PER PROTOCOL IV Last administered on 11/27/18 05:39; Admin Dose 7 MLS/HR; Start 11/24/18 at 10:04 IV Flush (NS 10 ml) 10 ml PRN PRN IV IV PROTOCOL; Start 11/24/18 at 16:00 Miscellaneous Information 1 ea NOTE XX ; Start 11/24/18 at 20:30 Glucose (Glutose) 15 gm Q15M PRN PO DECREASED GLUCOSE; Start 11/24/18 at 20:30 Glucose (Glutose) 22.5 gm Q15M PRN PO DECREASED GLUCOSE; Start 11/24/18 at 20:30 Dextrose (D50w Syringe) 25 ml Q15M PRN IV DECREASED GLUCOSE Last administered on 11/26/18 01:40; Admin Dose 25 ML; Start 11/24/18 at 20:30 Dextrose (D50w Syringe) 50 ml Q15M PRN IV DECREASED GLUCOSE Last administered on 11/25/18 20:44; Admin Dose 50 ML; Start 11/24/18 at 20:30 Glucagon (Glucagen) 1 mg Q15M PRN IM DECREASED GLUCOSE; Start 11/24/18 at 20:30 Glucose (Glutose) 15 gm Q15M PRN BUCCAL DECREASED GLUCOSE; Start 11/24/18 at 20:30 Levofloxacin/ Dextrose 50 ml @ 50 mls/hr Q48H IVPB Last administered on 11/26/18at 12:48; Admin Dose 50 MLS/HR; Start 11/26/18 at 12:30 Methylprednisolone Sodium Succinate (Solu-Medrol) 30 mg Q8H IV Last administered on 11/28/18at 09:43; Admin Dose 30 MG; Start 11/27/18 at 02:00 Diagnostic Test (Pha) (Accu-Chek) 1 XX ; Start 11/29/18 at 02:00 Insulin Aspart (Novolog Insulin Pen) NOVOLOG *MILD* ALGORITHM WITH MEALS BEDTIME SC ; Start 11/28/18 at 11:30 ROCHELLE STERLING NP Nov 28, 2018 12:37
[2018-11-28] MEDS: LEVOFLOXACIN 250MG/D5W (PMX) 50 ML IVPB SCH (12:50)
[2018-11-28] MEDS: HEPARIN 25000 UNITS/250 ML 250 ML IV SCH (12:52)
--- NOTE | 2018-11-28 14:19 | CONS ---
Assessment/Plan Assessment/Plan Hospital Course (Demo Recall) IMP: 1.AF with mild RVR 2.Renal failure 3.hyperkalemia 4.Bradycardia 5.CHF-diastolic acute on chronic EF 50% by echo this admit 6.HTN 7.-mod to severe by echo 08/09 8. Hematuria Recc: -ICU -Now DNI -IVP PRN BB -Will start PO BB as now able to take PO's -Hold heparin given hematuria and worsening anemia and follow for resolution. Consider urology eval -Continue abx's and f/u cx data -Follow MS -HD for volume removal Consultation Date/Type/Reason Admit Date/Time Nov 16, 2018 at 17:17 Initial Consult Date 11/20/18 Type of Consult Cardiology Reason for Consultation AFL/AF Requesting Provider: JABIER SEBASTIAN Date/Time of Note DATE: 11/28/18 TIME: 14:17 Exam/Review of Systems Vital Signs Vitals Vital Signs Date Temp Pulse Resp B/P (MAP) Pulse Ox O2 O2 Flow FiO2 Time Delivery Rate 11/28/18 107 17 137/105 100 Nasal 13:00 (116) Cannula 11/28/18 2.0 28 12:15 11/28/18 98.0 12:00 Intake and Output 11/27/18 11/27/18 11/28/18 1414:59 22:59 06:59 IntakeIntake Total 50 ml 152 ml 160 ml OutputOutput Total 2925 ml 250 ml 220 ml BalanceBalance -2875 ml -98 ml -60 ml Exam Exam Review of Systems: CONSTITUTIONAL: No fevers, chills. PULMONARY: No sob CARDIOVASCULAR: No chest pain/palpitations GASTROINTESTINAL: No nausea/vomiting. GENITOURINARY: No hematuria/dysuria. MUSCULOSKELETAL: No myagias/arthalgias. PSYCHIATRIC: The patient denies depression. NEUROLOGIC: More alert Constitutional: alert Psych: no complaints Head: normocephalic ENMT: mucosa pink and moist Neck: supple, jvd (9 cm water) Respiratory: diminished breath sounds Cardiovascular: irregular rhythm Gastrointestinal: soft, non-tender Musculoskeletal: muscle weakness (generalized) Extremities: pitting pedal edema (bilateral) Neurological: other (No focal deficits) Labs Result Diagram: 11/28/18 0436 11/28/18 0436 Results 24hrs Laboratory Tests Test 11/27/18 15:03 11/27/18 17:45 11/27/18 20:35 11/27/18 21:40 Activated 100.4 *H Partial Thromboplast Time Bedside Glucose 151 160 178 Test 11/27/18 22:56 11/28/18 01:48 11/28/18 04:22 11/28/18 04:36 Activated 60.9 H Partial Thromboplast Time Bedside Glucose 231 H 251 H White Blood Count 2.4 #L Red Blood Count 3.37 L Hemoglobin 7.6 L Hematocrit 23.9 L Mean Corpuscular Volume 70.9 L Mean Corpuscular 22.6 L Hemoglobin Mean Corpuscular 31.8 L Hemoglobin Concent Red Cell Distribution 19.4 H Width Platelet Count 112 L Mean Platelet Volume Immature Granulocytes % 0.400 Neutrophils % 88.0 H Lymphocytes % 8.3 L Monocytes % 3.3 Eosinophils % 0.0 Basophils % 0.0 Nucleated Red Blood 0.0 Cells % Immature Granulocytes # 0.010 Neutrophils # 2.1 Lymphocytes # 0.2 L Monocytes # 0.1 L Eosinophils # 0.0 Basophils # 0.0 Nucleated Red Blood 0.0 Cells # Sodium Level 141 Potassium Level 4.8 Chloride Level 103 Carbon Dioxide Level 27 Anion Gap 11 Blood Urea Nitrogen 53 H Creatinine 2.86 H Est Glomerular Filtrat Rate mL/min Glucose Level 239 #H Calcium Level 8.9 Phosphorus Level 5.5 H Magnesium Level 2.2 Test 11/28/18 05:53 11/28/18 12:37 Activated 54.8 H Partial Thromboplast Time Bedside Glucose 211 Medications Medications Current Medications IV Flush (NS 3 ml) 3 ml PER PROTOCOL IV ; Start 11/16/18 at 19:30 Ondansetron HCl (Zofran Inj) 4 mg Q6H PRN IV NAUSEA/VOMITING; Start 11/16/18 at 19:30 Acetaminophen (Tylenol Tab) 650 mg Q6H PRN PO .PAIN 1-3 OR TEMP; Start 11/16/18 at 19:30 Acetaminophen/ Hydrocodone Bitart ([place] (5/325)) 1 tab Q6H PRN PO .MOD PAIN 4- 6 Last administered on 11/20/18at 17:10; Admin Dose 1 TAB; Start 11/16/18 at 19:30 Docusate Sodium (Colace) 100 mg Q12H PRN PO .CONSTIPATION; Start 11/16/18 at 19:30 Zolpidem Tartrate (Ambien) 5 mg QHS PRN PO .INSOMNIA Last administered on 11/22/18 23:20; Admin Dose 5 MG; Start 11/16/18 at 19:30 Clotrimazole (Lotrimin Cr) 1 applic BID TOP Last administered on 11/28/18 09:44; Admin Dose 1 APPLIC; Start 11/16/18 at 21:00 Fluticasone/ Vilanterol (Breo Ellipta 100-25 Mcg Inh) 1 inh DAILY INH Last administered on 11/28/18 09:44; Admin Dose 1 INH; Start 11/17/18 at 12:00 Albuterol/ Ipratropium (Duoneb) 3 ml Q4H RESP THERAPY HHN Last administered on 11/28/18 12:14; Admin Dose 3 ML; Start 11/18/18 at 13:00 Insulin Glargine (Lantus) 22 units DAILY@2000 SC Last administered on 11/27/18 21:44; Admin Dose 22 UNITS; Start 11/21/18 at 20:00 Metoprolol Tartrate (Lopressor) 5 mg Q4H PRN IV HR>110 Hold SBP<100; Start 11/23/18 at 13:00 Heparin Sodium (Porcine) 250 ml @ 0 mls/hr PER PROTOCOL IV Last administered on 11/28/18 12:52; Admin Dose 7 MLS/HR; Start 11/24/18 at 10:04 IV Flush (NS 10 ml) 10 ml PRN PRN IV IV PROTOCOL; Start 11/24/18 at 16:00 Miscellaneous Information 1 ea NOTE XX ; Start 11/24/18 at 20:30 Glucose (Glutose) 15 gm Q15M PRN PO DECREASED GLUCOSE; Start 11/24/18 at 20:30 Glucose (Glutose) 22.5 gm Q15M PRN PO DECREASED GLUCOSE; Start 11/24/18 at 20:30 Dextrose (D50w Syringe) 25 ml Q15M PRN IV DECREASED GLUCOSE Last administered on 11/26/18 01:40; Admin Dose 25 ML; Start 11/24/18 at 20:30 Dextrose (D50w Syringe) 50 ml Q15M PRN IV DECREASED GLUCOSE Last administered on 3/6/19at 20:44; Admin Dose 50 ML; Start 11/24/18 at 20:30 Glucagon (Glucagen) 1 mg Q15M PRN IM DECREASED GLUCOSE; Start 11/24/18 at 20:30 Glucose (Glutose) 15 gm Q15M PRN BUCCAL DECREASED GLUCOSE; Start 11/24/18 at 20:30 Levofloxacin/ Dextrose 50 ml @ 50 mls/hr Q48H IVPB Last administered on 11/28/18at 12:50; Admin Dose 50 MLS/HR; Start 11/26/18 at 12:30 Methylprednisolone Sodium Succinate (Solu-Medrol) 30 mg Q8H IV Last administered on 11/28/18at 09:43; Admin Dose 30 MG; Start 11/27/18 at 02:00 Diagnostic Test (Pha) (Accu-Chek) 1 ea 02 XX ; Start 11/29/18 at 02:00 Insulin Aspart (Novolog Insulin Pen) NOVOLOG *MILD* ALGORITHM WITH MEALS BEDTIME SC Last administered on 11/28/18at 12:41; Admin Dose 2 UNIT; Start 11/28/18 at 11:30 GHASSAN SHERMAN Nov 28, 2018 14:19
--- NOTE | 2018-11-28 14:52 | PN ---
Date/Time of Note Date/Time of Note DATE: 11/28/18 TIME: 14:50 Assessment/Plan VTE Prophylaxis Risk score (from Ns)>0 risk: 11 SCD applied (from Ns): Yes Pharmacological prophylaxis: heparin Lines/Catheters IV Catheter Type (from Nrsg): PICC Line Central line still needed: Yes Urinary Cath still in place: Yes Reason Cath still needed: urinary retention Assessment/Plan Hospital Course 83 yo female with , diastolic CHF with acute respiratory failure and volume overload from CHF and BRIE Patient's family reversed their decision for palliative care. Continue to want aggressive care now but remains DNR Acute respiratory failure 2/2 volume overload: - patient's status has improved, no longer seems at risk for intubation - Continue O2 by NC - Continue removal by HD BRIE: - HD per renal A Fib: - Hold heparin given hematuria - Digoxin given Cirrhosis Septic encephelopathy, improving Sepsis - Antibiotics per ID, would stop at this point DNR Result Diagram: 11/28/18 0436 11/28/18 0436 Results 24hrs Laboratory Tests Test 11/27/18 15:03 11/27/18 17:45 11/27/18 20:35 11/27/18 21:40 Activated 100.4 *H Partial Thromboplast Time Bedside Glucose 151 160 178 Test 11/27/18 22:56 11/28/18 01:48 11/28/18 04:22 11/28/18 04:36 Activated 60.9 H Partial Thromboplast Time Bedside Glucose 231 H 251 H White Blood Count 2.4 #L Red Blood Count 3.37 L Hemoglobin 7.6 L Hematocrit 23.9 L Mean Corpuscular Volume 70.9 L Mean Corpuscular 22.6 L Hemoglobin Mean Corpuscular 31.8 L Hemoglobin Concent Red Cell Distribution 19.4 H Width Platelet Count 112 L Mean Platelet Volume Immature Granulocytes % 0.400 Neutrophils % 88.0 H Lymphocytes % 8.3 L Monocytes % 3.3 Eosinophils % 0.0 Basophils % 0.0 Nucleated Red Blood 0.0 Cells % Immature Granulocytes # 0.010 Neutrophils # 2.1 Lymphocytes # 0.2 L Monocytes # 0.1 L Eosinophils # 0.0 Basophils # 0.0 Nucleated Red Blood 0.0 Cells # Sodium Level 141 Potassium Level 4.8 Chloride Level 103 Carbon Dioxide Level 27 Anion Gap 11 Blood Urea Nitrogen 53 H Creatinine 2.86 H Est Glomerular Filtrat Rate mL/min Glucose Level 239 #H Calcium Level 8.9 Phosphorus Level 5.5 H Magnesium Level 2.2 Test 11/28/18 05:53 11/28/18 12:37 Activated 54.8 H Partial Thromboplast Time Bedside Glucose 211 Subjective 24 Hr Interval Summary Free Text/Dictation Again continues to improve. More alert, urine output picking up Exam/Review of Systems Exam Vitals Vital Signs Date Temp Pulse Resp B/P (MAP) Pulse Ox O2 O2 Flow FiO2 Time Delivery Rate 11/28/18 107 17 137/105 100 Nasal 13:00 (116) Cannula 11/28/18 2.0 28 12:15 11/28/18 98.0 12:00 Intake and Output 11/27/18 11/27/18 11/28/18 1515:00 23:00 07:00 IntakeIntake Total 49 ml 271 ml 40 ml OutputOutput Total 2925 ml 255 ml 175 ml BalanceBalance -2876 ml 16 ml -135 ml Exam Alert and oriented x 2 Pleasant No distress + JVD Breahthing comfortably Tachy Soft nt nd Ext with shriveled venous stasis changes Results Results 24hrs Laboratory Tests Test 11/27/18 15:03 11/27/18 17:45 11/27/18 20:35 11/27/18 21:40 Activated 100.4 *H Partial Thromboplast Time Bedside Glucose 151 160 178 Test 11/27/18 22:56 11/28/18 01:48 11/28/18 04:22 11/28/18 04:36 Activated 60.9 H Partial Thromboplast Time Bedside Glucose 231 H 251 H White Blood Count 2.4 #L Red Blood Count 3.37 L Hemoglobin 7.6 L Hematocrit 23.9 L Mean Corpuscular Volume 70.9 L Mean Corpuscular 22.6 L Hemoglobin Mean Corpuscular 31.8 L Hemoglobin Concent Red Cell Distribution 19.4 H Width Platelet Count 112 L Mean Platelet Volume Immature Granulocytes % 0.400 Neutrophils % 88.0 H Lymphocytes % 8.3 L Monocytes % 3.3 Eosinophils % 0.0 Basophils % 0.0 Nucleated Red Blood 0.0 Cells % Immature Granulocytes # 0.010 Neutrophils # 2.1 Lymphocytes # 0.2 L Monocytes # 0.1 L Eosinophils # 0.0 Basophils # 0.0 Nucleated Red Blood 0.0 Cells # Sodium Level 141 Potassium Level 4.8 Chloride Level 103 Carbon Dioxide Level 27 Anion Gap 11 Blood Urea Nitrogen 53 H Creatinine 2.86 H Est Glomerular Filtrat Rate mL/min Glucose Level 239 #H Calcium Level 8.9 Phosphorus Level 5.5 H Magnesium Level 2.2 Test 11/28/18 05:53 11/28/18 12:37 Activated 54.8 H Partial Thromboplast Time Bedside Glucose 211 Medications Medication Current Medications IV Flush (NS 3 ml) 3 ml PER PROTOCOL IV ; Start 11/16/18 at 19:30 Ondansetron HCl (Zofran Inj) 4 mg Q6H PRN IV NAUSEA/VOMITING; Start 11/16/18 at 19:30 Acetaminophen (Tylenol Tab) 650 mg Q6H PRN PO .PAIN 1-3 OR TEMP; Start 11/16/18 at 19:30 Acetaminophen/ Hydrocodone Bitart ([place] (5/325)) 1 tab Q6H PRN PO .MOD PAIN 4- 6 Last administered on 11/20/18 17:10; Admin Dose 1 TAB; Start 11/16/18 at 19:30 Docusate Sodium (Colace) 100 mg Q12H PRN PO .CONSTIPATION; Start 11/16/18 at 19:30 Zolpidem Tartrate (Ambien) 5 mg QHS PRN PO .INSOMNIA Last administered on 23:20; Admin Dose 5 MG; Start 11/16/18 at 19:30 Clotrimazole (Lotrimin Cr) 1 applic BID TOP Last administered on 11/28/18 09:44; Admin Dose 1 APPLIC; Start 11/16/18 at 21:00 Fluticasone/ Vilanterol (Breo Ellipta 100-25 Mcg Inh) 1 inh DAILY INH Last administered on 11/28/18 09:44; Admin Dose 1 INH; Start 11/17/18 at 12:00 Albuterol/ Ipratropium (Duoneb) 3 ml Q4H RESP THERAPY HHN Last administered on 11/28/18 12:14; Admin Dose 3 ML; Start 11/18/18 at 13:00 Insulin Glargine (Lantus) 22 units DAILY@2000 SC Last administered on 11/27/18 21:44; Admin Dose 22 UNITS; Start 11/21/18 at 20:00 Metoprolol Tartrate (Lopressor) 5 mg Q4H PRN IV HR>110 Hold SBP<100; Start 11/23/18 at 13:00 Heparin Sodium (Porcine) 250 ml @ 0 mls/hr PER PROTOCOL IV Last administered on 11/28/18at 12:52; Admin Dose 7 MLS/HR; Start 11/24/18 at 10:04; Status Hold IV Flush (NS 10 ml) 10 ml PRN PRN IV IV PROTOCOL; Start 11/24/18 at 16:00 Miscellaneous Information 1 ea NOTE XX ; Start 11/24/18 at 20:30 Glucose (Glutose) 15 gm Q15M PRN PO DECREASED GLUCOSE; Start 11/24/18 at 20:30 Glucose (Glutose) 22.5 gm Q15M PRN PO DECREASED GLUCOSE; Start 11/24/18 at 20:30 Dextrose (D50w Syringe) 25 ml Q15M PRN IV DECREASED GLUCOSE Last administered on 11/26/18at 01:40; Admin Dose 25 ML; Start 11/24/18 at 20:30 Dextrose (D50w Syringe) 50 ml Q15M PRN IV DECREASED GLUCOSE Last administered on 11/25/18at 20:44; Admin Dose 50 ML; Start 11/24/18 at 20:30 Glucagon (Glucagen) 1 mg Q15M PRN IM DECREASED GLUCOSE; Start 11/24/18 at 20:30 Glucose (Glutose) 15 gm Q15M PRN BUCCAL DECREASED GLUCOSE; Start 11/24/18 at 20:30 Levofloxacin/ Dextrose 50 ml @ 50 mls/hr Q48H IVPB Last administered on 11/28/18at 12:50; Admin Dose 50 MLS/HR; Start 11/26/18 at 12:30 Methylprednisolone Sodium Succinate (Solu-Medrol) 30 mg Q8H IV Last administe red on 11/28/18at 09:43; Admin Dose 30 MG; Start 11/27/18 at 02:00 Diagnostic Test (Pha) (Accu-Chek) 1 ea 02 XX ; Start 11/29/18 at 02:00 Insulin Aspart (Novolog Insulin Pen) NOVOLOG *MILD* ALGORITHM WITH MEALS BEDTIME SC Last administered on 11/28/18at 12:41; Admin Dose 2 UNIT; Start 11/28/18 at 11:30 Metoprolol Tartrate (Lopressor) 50 mg BID PO ; Start 11/28/18 at 21:00 Aspirin (Aspirin) 81 mg DAILY PO ; Start 11/29/18 at 09:00 HARIS GREEN MD Nov 28, 2018 14:52
[2018-11-28] MEDS: METOPROLOL 50 MG TAB PO SCH (20:14)
[2018-11-28] MEDS: INSULIN GLARGINE [LANTus] (100 UNITS/ML) SYG SC SCH (20:17)
[2018-11-29] VITALS (16 sets, daily range): BP systolic 110–151; BP diastolic 60–85; PULSE 87–104; RESP 17–25
[2018-11-29] MEDS: ALBUTEROL/IPRATROPIUM (NEB) 3 ML AMP HHN SCH ×6 (00:30→20:34)
[2018-11-29] MEDS ORDERED: ACCU-CHEK XX SCH (02:00)
[2018-11-29] MEDS: DEXTROSE 50% 50 ML SYRINGE IV PRN (06:01)
[2018-11-29] MEDS: INSULIN ASPART [NOVOLOG] 3 ML PEN SC SCH ×5 (08:00→20:11)
--- NOTE | 2018-11-29 08:54 | CONS ---
Consult Date/Type/Reason Admit Date/Time Nov 16, 2018 at 17:17 Initial Consult Date Type of Consult Pulmonary Requesting Provider: JABIER SEBASTIAN Date/Time of Note DATE: 11/29/18 TIME: 08:54 Subjective Transferred to telemetry this morning. No events overnight remained stable. Objective Vital Signs Date Temp Pulse Resp B/P (MAP) Pulse Ox O2 O2 Flow FiO2 Time Delivery Rate 11/29/18 97.8 104 18 126/71 100 Nasal 08:04 (89) Cannula 11/29/18 2.0 04:51 11/28/18 28 17:06 Intake and Output 11/28/18 11/28/18 11/29/18 1515:00 23:00 07:00 IntakeIntake Total 399.8 ml 300 ml 360 ml OutputOutput Total 125 ml 350 ml 210 ml BalanceBalance 274.8 ml -50 ml 150 ml Exam GENERAL: Elderly lady appears comfortable at rest no acute distress VITAL SIGNS: per chart NECK: Supple. No JVD or lymphadenopathy. CARDIAC EXAM: S1, S2. No added sounds or murmurs. CHEST: clear bilaterally, No added sounds, rales or wheezes ABDOMEN: Soft, nontender. No guarding or rebound. EXTREMITIES: No cyanosis, clubbing edema +1 NEUROLOGIC: Generalized weakness. No focal deficits. Vent Setting Fraction of Inspired Oxygen pe: 28 Results/Medications Result Diagram: 11/29/18 0400 11/29/18 0507 Results 24 hrs Laboratory Tests Test 11/28/18 12:37 11/28/18 18:17 11/28/18 20:10 11/29/18 04:00 Bedside Glucose 211 186 157 White Blood Count 4.7 #L Red Blood Count 3.10 L Hemoglobin 7.1 L Hematocrit 22.4 L Mean Corpuscular 72.3 L Volume Mean Corpuscular 22.9 L Hemoglobin Mean Corpuscular 31.7 L Hemoglobin Concent Red Cell 19.4 H Distribution Width Platelet Count 91 L Mean Platelet Volume Immature 0.200 Granulocytes % Neutrophils % 81.3 H Lymphocytes % 11.3 L Monocytes % 7.2 Eosinophils % 0.0 Basophils % 0.0 Nucleated Red Blood 0.0 Cells % Immature 0.010 Granulocytes # Neutrophils # 3.8 Lymphocytes # 0.5 L Monocytes # 0.3 Eosinophils # 0.0 Basophils # 0.0 Nucleated Red Blood 0.0 Cells # Test 11/29/18 05:07 11/29/18 05:55 11/29/18 06:23 Sodium Level 142 Potassium Level 4.6 Chloride Level 103 Carbon Dioxide Level 28 Anion Gap 11 Blood Urea Nitrogen 62 H Creatinine 3.12 H Est Glomerular Filtrat Rate mL/min Glucose Level 35 #*L Calcium Level 9.2 Phosphorus Level 5.2 H Magnesium Level 2.2 Bedside Glucose 37 *L 86 Medications Current Medications IV Flush (NS 3 ml) 3 ml PER PROTOCOL IV ; Start 11/16/18 at 19:30 Ondansetron HCl (Zofran Inj) 4 mg Q6H PRN IV NAUSEA/VOMITING; Start 11/16/18 at 19:30 Acetaminophen (Tylenol Tab) 650 mg Q6H PRN PO .PAIN 1-3 OR TEMP; Start 11/16/18 at 19:30 Acetaminophen/ Hydrocodone Bitart ([place] (5/325)) 1 tab Q6H PRN PO .MOD PAIN 4- 6 Last administered on 11/20/18 17:10; Admin Dose 1 TAB; Start 11/16/18 at 19:30 Docusate Sodium (Colace) 100 mg Q12H PRN PO .CONSTIPATION; Start 11/16/18 at 19:30 Zolpidem Tartrate (Ambien) 5 mg QHS PRN PO .INSOMNIA Last administered on 11/22/18 23:20; Admin Dose 5 MG; Start 11/16/18 at 19:30 Clotrimazole (Lotrimin Cr) 1 applic BID TOP Last administered on 11/28/18 20:18; Admin Dose 1 APPLIC; Start 11/16/18 at 21:00 Fluticasone/ Vilanterol (Breo Ellipta 100-25 Mcg Inh) 1 inh DAILY INH Last ad ministered on 11/28/18 09:44; Admin Dose 1 INH; Start 11/17/18 at 12:00 Albuterol/ Ipratropium (Duoneb) 3 ml Q4H RESP THERAPY HHN Last administered on 11/29/18 04:51; Admin Dose 3 ML; Start 11/18/18 at 13:00 Insulin Glargine (Lantus) 22 units DAILY@2000 SC Last administered on 11/28/18 20:17; Admin Dose 22 UNITS; Start 11/21/18 at 20:00 Metoprolol Tartrate (Lopressor) 5 mg Q4H PRN IV HR>110 Hold SBP<100; Start 11/23/18 at 13:00 Heparin Sodium (Porcine) 250 ml @ 0 mls/hr PER PROTOCOL IV Last administered on 11/28/18at 12:52; Admin Dose 7 MLS/HR; Start 11/24/18 at 10:04; Status Hold IV Flush (NS 10 ml) 10 ml PRN PRN IV IV PROTOCOL; Start 11/24/18 at 16:00 Miscellaneous Information 1 ea NOTE XX ; Start 11/24/18 at 20:30 Glucose (Glutose) 15 gm Q15M PRN PO DECREASED GLUCOSE; Start 11/24/18 at 20:30 Glucose (Glutose) 22.5 gm Q15M PRN PO DECREASED GLUCOSE; Start 11/24/18 at 20:30 Dextrose (D50w Syringe) 25 ml Q15M PRN IV DECREASED GLUCOSE Last administered on 11/26/18at 01:40; Admin Dose 25 ML; Start 11/24/18 at 20:30 Dextrose (D50w Syringe) 50 ml Q15M PRN IV DECREASED GLUCOSE Last administered on 11/29/18at 06:01; Admin Dose 50 ML; Start 11/24/18 at 20:30 Glucagon (Glucagen) 1 mg Q15M PRN IM DECREASED GLUCOSE; Start 11/24/18 at 20:30 Glucose (Glutose) 15 gm Q15M PRN BUCCAL DECREASED GLUCOSE; Start 11/24/18 at 20:30 Levofloxacin/ Dextrose 50 ml @ 50 mls/hr Q48H IVPB Last administered on 11/28/18at 12:50; Admin Dose 50 MLS/HR; Start 11/26/18 at 12:30 Insulin Aspart (Novolog Insulin Pen) NOVOLOG *MILD* ALGORITHM WITH MEALS BEDTIME SC Last administered on 11/28/18at 18:20; Admin Dose 2 UNIT; Start 11/28/18 at 11:30 Metoprolol Tartrate (Lopressor) 50 mg BID PO Last administered on 11/28/18at 20:14; Admin Dose 50 MG; Start 11/28/18 at 21:00 Aspirin (Aspirin) 81 mg DAILY PO ; Start 11/29/18 at 09:00 Assessment/Plan Hospital Course (Demo Recall) Assessment 1. Status post acute hypoxemic respiratory failure secondary to volume overload 2. Acute renal failure now hemodialysis dependent 3. History of pulmonary embolus on Eliquis 4. Congestive cardiac failure with aortic stenosis 5. Encephalopathy toxic metabolic now resolving Plan 1. Continue hemodialysis per nephrology 2. Monitor H&H consider iron replacement or Epogen 3. Aspiration precautions 4. Wound care 5. PT evaluation PT eval encourage out of bed. PATTI FRANKS MD, [facility] Nov 29, 2018 08:54
--- NOTE | 2018-11-29 09:24 | PN ---
DATE: 11/29/2018 SUBJECTIVE: The patient is stable, no acute events overnight. No hemoptysis, hematemesis or hematoc hezia. The patient's urinary output has been reviewed. OBJECTIVE: VITAL SIGNS: Blood pressure is 126/71, respiration 18, pulse 104, temperature 97.8. HEENT: Head is normocephalic. NECK: Supple. HEART: Regular rate. LUNGS: Show diminished breath sounds at the base. ABDOMEN: Soft, nontender to palpation without rebound or guarding. EXTREMITIES: Negative for clubbing, cyanosis. Positive edema. DERMATOLOGIC: No rashes. MUSCULOSKELETAL: No joint effusions. NEUROLOGIC: No change in exam. MEDICATIONS: Reviewed. LABORATORY DATA: Shows sodium 142, potassium 4.6, BUN 62, creatinine 3.12. White count is 4.7, hemo globin 7.1, platelet count is 91. ASSESSMENT AND PLAN: 1. Nonoliguric acute kidney injury on top of chronic kidney disease with previous baseline creatinin e of 1.5 mg per deciliter. Etiology of acute kidney injury is secondary to hemodynamics, possible tu bular injury. The patient was initiated on hemodialysis. The patient's dialysis has been held after signs of possible renal recovery. Will continue to monitor renal function. Continue to monitor uri nary output. 2. Hypokalemia, improved. Continue to monitor. 3. Volume overload. Continue medical management. May reintroduce diuretic therapy. Continue ultra filtration dialysis as needed. 4. Acute respiratory failure secondary to congestive heart failure exacerbation, COPD. The patient is clinically improving. Continue medical management. Continue nasal cannula. 5. Atrial fibrillation. Continue current treatment plan. 6. Diabetes. Continue current insulin regimen. 7. Acute encephalopathy, etiology is toxic metabolic. 8. Obesity. Continue to monitor. 9. Aortic stenosis. Continue to monitor. Dictated By: JOCELINE MCCALLUM DO NR/NTS Conf#: [id number] DID#: [id number] CC: JABIER SEBASTIAN MD; HARIS GREEN MD;*End*
[2018-11-29] MEDS: CLOTRIMAZOLE 1% 30 GM CR TOP SCH ×2 (10:27→20:10)
[2018-11-29] MEDS: FLUTICASONE/VILANTEROL 100-25 INH SCH (10:28)
[2018-11-29] MEDS: METOPROLOL 50 MG TAB PO SCH ×2 (10:28→20:10)
[2018-11-29] MEDS: ASPIRIN 81 MG TAB PO SCH (10:28)
--- NOTE | 2018-11-29 11:56 | CONS ---
Consultation Date/Type/Reason Admit Date/Time Nov 16, 2018 at 17:17 Initial Consult Date SUBJECTIVE: Pt was transferred to [facility] from ICU. Awake, afebrile. No acute events over night. VS: stable T: 97.8 LABS: Reviewed. WBC- 4.7 Antimicrobial: levofloxacin Indwelling: Right femoral Noel, Soto catheter. PICC Physical examination: GEN: Well-developed morbidly obese -[place] woman who in no distress. HENT: Head atraumatic normocephalic sclera nonicteric. Neck is supple. PULM: Chest rise symmetrical breath sounds diminished to bases. Heart: S1-S2.. Abdomen obese soft, bowel sounds present. Extremities: Bilateral lower extremities edema erythema and multiple wounds Assessment: 1. Acute hypoxemic respiratory failure secondary to pulmonary edema and CHF exacerbation 2. Sepsis, present on admission 3. 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 Urinary tract infection 5. Staph bacteremia consistent with contaminant 6. Morbid obesity 7. Atrial fibrillation 8. Diabetes 9. Acute kidney failure==> on HD 7. Pancytopenia Plan: Pt is gradually improving. Continue present care. Continue current antbx treatment. Wound care. Nephro and pulmonary rec-s. Requesting Provider: JABIER SEBASTIAN Date/Time of Note DATE: 11/29/18 TIME: 11:53 Exam/Review of Systems Exam Vitals Vital Signs Date Temp Pulse Resp B/P (MAP) Pulse Ox O2 O2 Flow FiO2 Time Delivery Rate 11/29/18 88 22 99 3.0 11:27 11/29/18 97.8 126/60 Nasal 11:21 (82) Cannula 11/28/18 28 17:06 Intake and Output 11/28/18 11/28/18 11/29/18 1515:00 23:00 07:00 IntakeIntake Total 399.8 ml 300 ml 360 ml OutputOutput Total 125 ml 350 ml 210 ml BalanceBalance 274.8 ml -50 ml 150 ml Results Result Diagram: 11/29/18 0400 11/29/18 0507 Results 24hrs Laboratory Tests Test 11/28/18 12:37 11/28/18 18:17 11/28/18 20:10 11/29/18 04:00 Bedside Glucose 211 186 157 White Blood Count 4.7 #L Red Blood Count 3.10 L Hemoglobin 7.1 L Hematocrit 22.4 L Mean Corpuscular 72.3 L Volume Mean Corpuscular 22.9 L Hemoglobin Mean Corpuscular 31.7 L Hemoglobin Concent Red Cell 19.4 H Distribution Width Platelet Count 91 L Mean Platelet Volume Immature 0.200 Granulocytes % Neutrophils % 81.3 H Lymphocytes % 11.3 L Monocytes % 7.2 Eosinophils % 0.0 Basophils % 0.0 Nucleated Red Blood 0.0 Cells % Immature 0.010 Granulocytes # Neutrophils # 3.8 Lymphocytes # 0.5 L Monocytes # 0.3 Eosinophils # 0.0 Basophils # 0.0 Nucleated Red Blood 0.0 Cells # Test 11/29/18 05:07 11/29/18 05:55 11/29/18 06:23 11/29/18 08:48 Sodium Level 142 Potassium Level 4.6 Chloride Level 103 Carbon Dioxide Level 28 Anion Gap 11 Blood Urea Nitrogen 62 H Creatinine 3.12 H Est Glomerular Filtrat Rate mL/min Glucose Level 35 #*L Calcium Level 9.2 Phosphorus Level 5.2 H Magnesium Level 2.2 Bedside Glucose 37 *L 86 65 L Medications Medication Current Medications IV Flush (NS 3 ml) 3 ml PER PROTOCOL IV ; Start 11/16/18 at 19:30 Ondansetron HCl (Zofran Inj) 4 mg Q6H PRN IV NAUSEA/VOMITING; Start 11/16/18 at 19:30 Acetaminophen (Tylenol Tab) 650 mg Q6H PRN PO .PAIN 1-3 OR TEMP; Start 11/16/18 at 19:30 Acetaminophen/ Hydrocodone Bitart ([place] (5/325)) 1 tab Q6H PRN PO .MOD PAIN 4- 6 Last administered on 11/20/18at 17:10; Admin Dose 1 TAB; Start 11/16/18 at 19:30 Docusate Sodium (Colace) 100 mg Q12H PRN PO .CONSTIPATION; Start 11/16/18 at 19:30 Zolpidem Tartrate (Ambien) 5 mg QHS PRN PO .INSOMNIA Last administered on 11/22/18at 23:20; Admin Dose 5 MG; Start 11/16/18 at 19:30 Clotrimazole (Lotrimin Cr) 1 applic BID TOP Last administered on 11/29/18at 10:27; Admin Dose 1 APPLIC; Start 11/16/18 at 21:00 Fluticasone/ Vilanterol (Breo Ellipta 100-25 Mcg Inh) 1 inh DAILY INH Last administered on 11/29/18 10:28; Admin Dose 1 INH; Start 11/17/18 at 12:00 Albuterol/ Ipratropium (Duoneb) 3 ml Q4H RESP THERAPY HHN Last administered on 11/29/18 11:25; Admin Dose 3 ML; Start 11/18/18 at 13:00 Insulin Glargine (Lantus) 22 units DAILY@2000 SC Last administered on 11/28/18 20:17; Admin Dose 22 UNITS; Start 11/21/18 at 20:00 Metoprolol Tartrate (Lopressor) 5 mg Q4H PRN IV HR>110 Hold SBP<100; Start 11/23/18 at 13:00 Heparin Sodium (Porcine) 250 ml @ 0 mls/hr PER PROTOCOL IV Last administered on 11/28/18 12:52; Admin Dose 7 MLS/HR; Start 11/24/18 at 10:04; Status Hold IV Flush (NS 10 ml) 10 ml PRN PRN IV IV PROTOCOL; Start 11/24/18 at 16:00 Miscellaneous Information 1 ea NOTE XX ; Start 11/24/18 at 20:30 Glucose (Glutose) 15 gm Q15M PRN PO DECREASED GLUCOSE; Start 11/24/18 at 20:30 Glucose (Glutose) 22.5 gm Q15M PRN PO DECREASED GLUCOSE; Start 11/24/18 at 20:30 Dextrose (D50w Syringe) 25 ml Q15M PRN IV DECREASED GLUCOSE Last administered on 11/26/18at 01:40; Admin Dose 25 ML; Start 11/24/18 at 20:30 Dextrose (D50w Syringe) 50 ml Q15M PRN IV DECREASED GLUCOSE Last administered on 11/29/18 06:01; Admin Dose 50 ML; Start 11/24/18 at 20:30 Glucagon (Glucagen) 1 mg Q15M PRN IM DECREASED GLUCOSE; Start 11/24/18 at 20:30 Glucose (Glutose) 15 gm Q15M PRN BUCCAL DECREASED GLUCOSE; Start 11/24/18 at 20:30 Insulin Aspart (Novolog Insulin Pen) NOVOLOG *MILD* ALGORITHM WITH MEALS BEDTIME SC Last administered on 3/9/19at 18:20; Admin Dose 2 UNIT; Start 11/28/18 at 11:30 Metoprolol Tartrate (Lopressor) 50 mg BID PO Last administered on 11/29/18 10:28; Admin Dose 50 MG; Start 11/28/18 at 21:00 Aspirin (Aspirin) 81 mg DAILY PO Last administered on 11/29/18at 10:28; Admin Dose 81 MG; Start 11/29/18 at 09:00 Levofloxacin (Levaquin) 250 mg Q48H PO ; Start 11/30/18 at 06:00 JOSE LUIS HALL Nov 29, 2018 11:56
--- NOTE | 2018-11-29 14:59 | CONS ---
Assessment/Plan Assessment/Plan Hospital Course (Demo Recall) IMP: 1.AF with mild RVR-rate controlled on current dose of BB 2.Renal failure 3.hyperkalemia 4.Bradycardia 5.CHF-diastolic acute on chronic EF 50% by echo this admit 6.HTN 7.-mod to severe by echo 08/09 8. Hematuria Recc: -ICU -Now DNI -IVP PRN BB -Continue current PO BB dose -Contieu asa as tolerated for prevention of thromboembolic complications as not xu to remain on heprain due to hematuria and worsening anemia -Still holding heparin given hematuria with improvement. Will follow -Continue abx's and f/u cx data -Follow MS -HD for volume removal Consultation Date/Type/Reason Admit Date/Time Nov 16, 2018 at 17:17 Initial Consult Date 11/20/18 Type of Consult Cardiology Reason for Consultation AF Requesting Provider: JABIER SEBASTIAN Date/Time of Note DATE: 11/29/18 TIME: 14:54 Exam/Review of Systems Vital Signs Vitals Vital Signs Date Temp Pulse Resp B/P (MAP) Pulse Ox O2 O2 Flow FiO2 Time Delivery Rate 11/29/18 96 20 97 Nasal 2.0 14:24 Cannula 11/29/18 97.8 126/60 11:21 (82) 11/28/18 28 17:06 Intake and Output 11/28/18 11/28/18 11/29/18 1515:00 23:00 07:00 IntakeIntake Total 399.8 ml 300 ml 360 ml OutputOutput Total 125 ml 350 ml 210 ml BalanceBalance 274.8 ml -50 ml 150 ml Exam Exam Review of Systems: CONSTITUTIONAL: No fevers, chills. PULMONARY: ongoing sob CARDIOVASCULAR: No chest pain/palpitations GASTROINTESTINAL: No nausea/vomiting. GENITOURINARY: No hematuria/dysuria. MUSCULOSKELETAL: No myagias/arthalgias. PSYCHIATRIC: The patient denies depression. NEUROLOGIC: No weakness Constitutional: alert Psych: no complaints Head: normocephalic ENMT: mucosa pink and moist Neck: supple, jvd (9 cm water) Respiratory: clear to auscultation Cardiovascular: irregular rhythm Gastrointestinal: soft, non-tender Musculoskeletal: muscle tone (normal) Extremities: edema (none) Neurological: other (No focal deficits) Labs Result Diagram: 11/29/18 0400 11/29/18 0507 Results 24hrs Laboratory Tests Test 11/28/18 18:17 11/28/18 20:10 11/29/18 04:00 11/29/18 05:07 Bedside Glucose 186 157 White Blood Count 4.7 #L Red Blood Count 3.10 L Hemoglobin 7.1 L Hematocrit 22.4 L Mean Corpuscular 72.3 L Volume Mean Corpuscular 22.9 L Hemoglobin Mean Corpuscular 31.7 L Hemoglobin Concent Red Cell 19.4 H Distribution Width Platelet Count 91 L Mean Platelet Volume Immature 0.200 Granulocytes % Neutrophils % 81.3 H Lymphocytes % 11.3 L Monocytes % 7.2 Eosinophils % 0.0 Basophils % 0.0 Nucleated Red Blood 0.0 Cells % Immature 0.010 Granulocytes # Neutrophils # 3.8 Lymphocytes # 0.5 L Monocytes # 0.3 Eosinophils # 0.0 Basophils # 0.0 Nucleated Red Blood 0.0 Cells # Sodium Level 142 Potassium Level 4.6 Chloride Level 103 Carbon Dioxide Level 28 Anion Gap 11 Blood Urea Nitrogen 62 H Creatinine 3.12 H Est Glomerular Filtrat Rate mL/min Glucose Level 35 #*L Calcium Level 9.2 Phosphorus Level 5.2 H Magnesium Level 2.2 Test 11/29/18 05:55 11/29/18 06:23 11/29/18 08:48 11/29/18 12:54 Bedside Glucose 37 *L 86 65 L 68 L Medications Medications Current Medications IV Flush (NS 3 ml) 3 ml PER PROTOCOL IV ; Start 11/16/18 at 19:30 Ondansetron HCl (Zofran Inj) 4 mg Q6H PRN IV NAUSEA/VOMITING; Start 11/16/18 at 19:30 Acetaminophen (Tylenol Tab) 650 mg Q6H PRN PO .PAIN 1-3 OR TEMP; Start 11/16/18 at 19:30 Acetaminophen/ Hydrocodone Bitart ([place] (5/325)) 1 tab Q6H PRN PO .MOD PAIN 4- 6 Last administered on 11/20/18at 17:10; Admin Dose 1 TAB; Start 11/16/18 at 19:30 Docusate Sodium (Colace) 100 mg Q12H PRN PO .CONSTIPATION; Start 11/16/18 at 19:30 Zolpidem Tartrate (Ambien) 5 mg QHS PRN PO .INSOMNIA Last administered on 11/22/18 23:20; Admin Dose 5 MG; Start 11/16/18 at 19:30 Clotrimazole (Lotrimin Cr) 1 applic BID TOP Last administered on 11/29/18 10:27; Admin Dose 1 APPLIC; Start 11/16/18 at 21:00 Fluticasone/ Vilanterol (Breo Ellipta 100-25 Mcg Inh) 1 inh DAILY INH Last administered on 11/29/18 10:28; Admin Dose 1 INH; Start 11/17/18 at 12:00 Albuterol/ Ipratropium (Duoneb) 3 ml Q4H RESP THERAPY HHN Last administered on 11/29/18 14:21; Admin Dose 3 ML; Start 11/18/18 at 13:00 Insulin Glargine (Lantus) 22 units DAILY@2000 SC Last administered on 11/28/18 20:17; Admin Dose 22 UNITS; Start 11/21/18 at 20:00 Metoprolol Tartrate (Lopressor) 5 mg Q4H PRN IV HR>110 Hold SBP<100; Start 11/23/18 at 13:00 Heparin Sodium (Porcine) 250 ml @ 0 mls/hr PER PROTOCOL IV Last administered on 11/28/18 12:52; Admin Dose 7 MLS/HR; Start 11/24/18 at 10:04; Status Hold IV Flush (NS 10 ml) 10 ml PRN PRN IV IV PROTOCOL; Start 11/24/18 at 16:00 Miscellaneous Information 1 ea NOTE XX Last administered on 11/29/18 12:55; Admin Dose 1 EA; Start 11/24/18 at 20:30 Glucose (Glutose) 15 gm Q15M PRN PO DECREASED GLUCOSE; Start 11/24/18 at 20:30 Glucose (Glutose) 22.5 gm Q15M PRN PO DECREASED GLUCOSE; Start 11/24/18 at 20:30 Dextrose (D50w Syringe) 25 ml Q15M PRN IV DECREASED GLUCOSE Last administered on 11/26/18 01:40; Admin Dose 25 ML; Start 11/24/18 at 20:30 Dextrose (D50w Syringe) 50 ml Q15M PRN IV DECREASED GLUCOSE Last administered on 11/29/18 06:01; Admin Dose 50 ML; Start 11/24/18 at 20:30 Glucagon (Glucagen) 1 mg Q15M PRN IM DECREASED GLUCOSE; Start 11/24/18 at 20:30 Glucose (Glutose) 15 gm Q15M PRN BUCCAL DECREASED GLUCOSE; Start 11/24/18 at 20:30 Insulin Aspart (Novolog Insulin Pen) NOVOLOG *MILD* ALGORITHM WITH MEALS BEDTIME SC Last administered on 11/28/18at 18:20; Admin Dose 2 UNIT; Start 11/28/18 at 11:30 Metoprolol Tartrate (Lopressor) 50 mg BID PO Last administered on 11/29/18 10:28; Admin Dose 50 MG; Start 11/28/18 at 21:00 Aspirin (Aspirin) 81 mg DAILY PO Last administered on 11/29/18at 10:28; Admin Dose 81 MG; Start 11/29/18 at 09:00 Levofloxacin (Levaquin) 250 mg Q48H PO ; Start 11/30/18 at 06:00 GHASSAN SHERMAN Nov 29, 2018 14:59
[2018-11-29] MEDS: HYDROCODONE/APAP (5/325) TAB PO PRN (15:00)
[2018-11-29] MEDS ORDERED: FUROSEMIDE 40 MG INJ IV ONE (15:00)
--- NOTE | 2018-11-29 16:15 | PN ---
Date/Time of Note Date/Time of Note DATE: 11/29/18 TIME: 16:11 Assessment/Plan VTE Prophylaxis Risk score (from Ns)>0 risk: 5 SCD applied (from Ns): Yes Pharmacological prophylaxis: heparin Lines/Catheters IV Catheter Type (from Nrsg): PICC Line Central line still needed: Yes Urinary Cath still in place: Yes Reason Cath still needed: urinary retention Assessment/Plan Hospital Course 83 yo female with , diastolic CHF with acute respiratory failure and volume overload from CHF and BRIE. She was transferred to ICU and was at risk for i ntubation. HD was intiated and patient has improved markedly. Respiratory status stable. Remains a bit hypervolemic. Holding HD now. Patient's family reversed their decision for palliative care. Continue to want aggressive care now but remains DNR Hypoglycemia event: - Stop lantus, monitor sugars Acute respiratory failure 2/2 volume overload: - patient's status has improved, now stable on NC - Continue O2 by NC BRIE: - Kidneys recovering with good urine output - Consider diuretics per renal - Holding off on HD A Fib: - Hold heparin given hematuria - Digoxin given Cirrhosis Septic encephelopathy, improving Sepsis - will stop abx at this point, no clear source DNR Dischage plannign: Patient can be discharged when volume status is optimzied. Likely will need subacute rehab. Result Diagram: 11/29/18 0400 11/29/18 0507 Results 24hrs Laboratory Tests Test 11/28/18 18:17 11/28/18 20:10 11/29/18 04:00 11/29/18 05:07 Bedside Glucose 186 157 White Blood Count 4.7 #L Red Blood Count 3.10 L Hemoglobin 7.1 L Hematocrit 22.4 L Mean Corpuscular 72.3 L Volume Mean Corpuscular 22.9 L Hemoglobin Mean Corpuscular 31.7 L Hemoglobin Concent Red Cell 19.4 H Distribution Width Platelet Count 91 L Mean Platelet Volume Immature 0.200 Granulocytes % Neutrophils % 81.3 H Lymphocytes % 11.3 L Monocytes % 7.2 Eosinophils % 0.0 Basophils % 0.0 Nucleated Red Blood 0.0 Cells % Immature 0.010 Granulocytes # Neutrophils # 3.8 Lymphocytes # 0.5 L Monocytes # 0.3 Eosinophils # 0.0 Basophils # 0.0 Nucleated Red Blood 0.0 Cells # Sodium Level 142 Potassium Level 4.6 Chloride Level 103 Carbon Dioxide Level 28 Anion Gap 11 Blood Urea Nitrogen 62 H Creatinine 3.12 H Est Glomerular Filtrat Rate mL/min Glucose Level 35 #*L Calcium Level 9.2 Phosphorus Level 5.2 H Magnesium Level 2.2 Test 11/29/18 05:55 11/29/18 06:23 11/29/18 08:48 11/29/18 12:54 Bedside Glucose 37 *L 86 65 L 68 L Subjective 24 Hr Interval Summary Free Text/Dictation Hypoglycemia this AM, received D50. Humzatus now held More alert again, feels well Exam/Review of Systems Exam Vitals Vital Signs Date Temp Pulse Resp B/P (MAP) Pulse Ox O2 O2 Flow FiO2 Time Delivery Rate 11/29/18 97.8 98 18 113/61 100 Nasal 15:40 (78) Cannula 11/29/18 2.0 14:24 11/28/18 28 17:06 Intake and Output 11/28/18 11/28/18 11/29/18 1515:00 23:00 07:00 IntakeIntake Total 399.8 ml 300 ml 360 ml OutputOutput Total 125 ml 350 ml 210 ml BalanceBalance 274.8 ml -50 ml 150 ml Exam Alert, oriented x 2 ++ JVD Breathign comfortably Lungs mild rhonchi, nonlabored Abdomen soft nt nd Ext wihtout edema, warm Results Results 24hrs Laboratory Tests Test 11/28/18 18:17 11/28/18 20:10 11/29/18 04:00 11/29/18 05:07 Bedside Glucose 186 157 White Blood Count 4.7 #L Red Blood Count 3.10 L Hemoglobin 7.1 L Hematocrit 22.4 L Mean Corpuscular 72.3 L Volume Mean Corpuscular 22.9 L Hemoglobin Mean Corpuscular 31.7 L Hemoglobin Concent Red Cell 19.4 H Distribution Width Platelet Count 91 L Mean Platelet Volume Immature 0.200 Granulocytes % Neutrophils % 81.3 H Lymphocytes % 11.3 L Monocytes % 7.2 Eosinophils % 0.0 Basophils % 0.0 Nucleated Red Blood 0.0 Cells % Immature 0.010 Granulocytes # Neutrophils # 3.8 Lymphocytes # 0.5 L Monocytes # 0.3 Eosinophils # 0.0 Basophils # 0.0 Nucleated Red Blood 0.0 Cells # Sodium Level 142 Potassium Level 4.6 Chloride Level 103 Carbon Dioxide Level 28 Anion Gap 11 Blood Urea Nitrogen 62 H Creatinine 3.12 H Est Glomerular Filtrat Rate mL/min Glucose Level 35 #*L Calcium Level 9.2 Phosphorus Level 5.2 H Magnesium Level 2.2 Test 11/29/18 05:55 11/29/18 06:23 11/29/18 08:48 11/29/18 12:54 Bedside Glucose 37 *L 86 65 L 68 L Medications Medication Current Medications IV Flush (NS 3 ml) 3 ml PER PROTOCOL IV ; Start 11/16/18 at 19:30 Ondansetron HCl (Zofran Inj) 4 mg Q6H PRN IV NAUSEA/VOMITING; Start 11/16/18 at 19:30 Acetaminophen (Tylenol Tab) 650 mg Q6H PRN PO .PAIN 1-3 OR TEMP; Start 11/16/18 at 19:30 Acetaminophen/ Hydrocodone Bitart ([place] (5/325)) 1 tab Q6H PRN PO .MOD PAIN 4- 6 Last administered on 11/29/18at 15:00; Admin Dose 1 TAB; Start 11/16/18 at 19:3 0 Docusate Sodium (Colace) 100 mg Q12H PRN PO .CONSTIPATION; Start 11/16/18 at 19:30 Zolpidem Tartrate (Ambien) 5 mg QHS PRN PO .INSOMNIA Last administered on 11/22/18 23:20; Admin Dose 5 MG; Start 11/16/18 at 19:30 Clotrimazole (Lotrimin Cr) 1 applic BID TOP Last administered on 11/29/18 10:27; Admin Dose 1 APPLIC; Start 11/16/18 at 21:00 Fluticasone/ Vilanterol (Breo Ellipta 100-25 Mcg Inh) 1 inh DAILY INH Last administered on 11/29/18 10:28; Admin Dose 1 INH; Start 11/17/18 at 12:00 Albuterol/ Ipratropium (Duoneb) 3 ml Q4H RESP THERAPY HHN Last administered on 11/29/18 14:21; Admin Dose 3 ML; Start 11/18/18 at 13:00 Insulin Glargine (Lantus) 22 units DAILY@2000 SC Last administered on 11/28/18 20:17; Admin Dose 22 UNITS; Start 11/21/18 at 20:00 Metoprolol Tartrate (Lopressor) 5 mg Q4H PRN IV HR>110 Hold SBP<100; Start 11/23/18 at 13:00 Heparin Sodium (Porcine) 250 ml @ 0 mls/hr PER PROTOCOL IV Last administered on 11/28/18 12:52; Admin Dose 7 MLS/HR; Start 11/24/18 at 10:04; Status Hold IV Flush (NS 10 ml) 10 ml PRN PRN IV IV PROTOCOL; Start 11/24/18 at 16:00 Miscellaneous Information 1 ea NOTE XX Last administered on 11/29/18 12:55; Admin Dose 1 EA; Start 11/24/18 at 20:30 Glucose (Glutose) 15 gm Q15M PRN PO DECREASED GLUCOSE; Start 11/24/18 at 20:30 Glucose (Glutose) 22.5 gm Q15M PRN PO DECREASED GLUCOSE; Start 11/24/18 at 20:30 Dextrose (D50w Syringe) 25 ml Q15M PRN IV DECREASED GLUCOSE Last administered on 11/26/18at 01:40; Admin Dose 25 ML; Start 11/24/18 at 20:30 Dextrose (D50w Syringe) 50 ml Q15M PRN IV DECREASED GLUCOSE Last administered on 11/29/18 06:01; Admin Dose 50 ML; Start 11/24/18 at 20:30 Glucagon (Glucagen) 1 mg Q15M PRN IM DECREASED GLUCOSE; Start 11/24/18 at 20:30 Glucose (Glutose) 15 gm Q15M PRN BUCCAL DECREASED GLUCOSE; Start 11/24/18 at 20:30 Insulin Aspart (Novolog Insulin Pen) NOVOLOG *MILD* ALGORITHM WITH MEALS BEDTIME SC Last administered on 11/28/18 18:20; Admin Dose 2 UNIT; Start 11/28/18 at 11:30 Metoprolol Tartrate (Lopressor) 50 mg BID PO Last administered on 11/29/18 10:28; Admin Dose 50 MG; Start 11/28/18 at 21:00 Aspirin (Aspirin) 81 mg DAILY PO Last administered on 11/29/18 10:28; Admin Dose 81 MG; Start 11/29/18 at 09:00 Levofloxacin (Levaquin) 250 mg Q48H PO ; Start 11/30/18 at 06:00 HARIS GREEN MD Nov 29, 2018 16:15
[2018-11-30] VITALS (25 sets, daily range): BP systolic 98–146; BP diastolic 48–81; PULSE 70–102; RESP 18–22
[2018-11-30] MEDS: ALBUTEROL/IPRATROPIUM (NEB) 3 ML AMP HHN SCH ×6 (00:17→20:46)
[2018-11-30] MEDS: HYDROCODONE/APAP (5/325) TAB PO PRN (00:44)
[2018-11-30] MEDS ORDERED: LEVOFLOXACIN 250 MG TAB PO SCH (06:00)
[2018-11-30] MEDS: INSULIN ASPART [NOVOLOG] 3 ML PEN SC SCH ×4 (08:00→21:00)
[2018-11-30] MEDS: FLUTICASONE/VILANTEROL 100-25 INH SCH (09:16)
[2018-11-30] MEDS: CLOTRIMAZOLE 1% 30 GM CR TOP SCH ×2 (09:17→21:00)
[2018-11-30] MEDS: ASPIRIN 81 MG TAB PO SCH (09:17)
[2018-11-30] MEDS: METOPROLOL 50 MG TAB PO SCH ×2 (09:17→23:15)
--- NOTE | 2018-11-30 09:38 | CONS ---
Assessment/Plan Assessment/Plan Assessment/Plan (Daily) Assessment recommendations; next 1. Patient status post acute respiratory failure weaned down off BiPAP now. Due to acute pulmonary edema as well as massive anasarca from acute renal failure, patient is now hemodialysis dependent. There has been marked overall clinical improvement. 2. Sacral ulcer, currently on appropriate antimicrobial regimen. 3. Chronic atrial fibrillation. 4. Aortic stenosis. 5. History of pulmonary embolism. 6. Anemia. 7. History of diabetes and hypertension. 8. Anemia. Continue current supportive care. Hemodialysis per regroover. Consultation Date/Type/Reason Admit Date/Time Nov 16, 2018 at 17:17 Initial Consult Date Type of Consult Pulmonary/critical care Patient's condition has taken a turn for the worse with altered mental status. Patient now has been transferred to ICU. Hemodialysis will be started shortly. Patient appears confused. But is hemodynamically stable. General exam; elderly woman, awake, agitated off and on. Requesting Provider: JABIER SEBASTIAN Date/Time of Note DATE: 11/30/18 TIME: 09:35 24 HR Interval Summary Free Text/Dictation Patient's condition is improving. Remains completely awake and alert. Denies any shortness of breath at rest. Denies any dysphagia. General exam; elderly female, awake alert, currently in no distress. Exam/Review of Systems Exam Vitals Vital Signs Date Temp Pulse Resp B/P (MAP) Pulse Ox O2 O2 Flow FiO2 Time Delivery Rate 11/30/18 2.0 08:54 11/30/18 94 18 98 Nasal 08:54 Cannula 11/30/18 97.8 131/63 07:25 (85) 11/28/18 28 17:06 Intake and Output 11/29/18 11/29/18 11/30/18 1515:00 23:00 07:00 IntakeIntake Total 600 ml 700 ml OutputOutput Total 300 ml 1000 ml BalanceBalance 300 ml -300 ml Exam HEENT exam; supple neck, no JVD. No lymphadenopathy. Midline trachea. No thyromegaly. Patient is edentulous. No neck masses. Chest exam; clear to auscultation. S1-S2 audible, no murmurs. Irregular rhythm. Abdomen exam; soft, nontender. No organomegaly. Bowel sounds audible. Extremity exam; trace peripheral edema. WHAT JOB TITLES MEAN exam; no focal deficit. Results Result Diagram: 11/30/1818 11/30/18 0518 Results 24hrs Laboratory Tests Test 11/29/18 12:54 11/29/18 18:06 11/29/18 20:09 11/30/18 05:18 Bedside Glucose 68 L 84 114 White Blood Count 5.1 Red Blood Count 2.96 L Hemoglobin 6.6 *L Hematocrit 21.8 L Mean Corpuscular 73.6 L Volume Mean Corpuscular 22.3 L Hemoglobin Mean Corpuscular 30.3 L Hemoglobin Concent Red Cell 19.8 H Distribution Width Platelet Count 56 #L Mean Platelet Volume Immature 0.200 Granulocytes % Neutrophils % 80.5 H Lymphocytes % 10.2 L Monocytes % 7.7 Eosinophils % 1.4 Basophils % 0.0 Nucleated Red Blood 0.0 Cells % Immature 0.010 Granulocytes # Neutrophils # 4.1 Lymphocytes # 0.5 L Monocytes # 0.4 Eosinophils # 0.1 Basophils # 0.0 Nucleated Red Blood 0.0 Cells # Sodium Level 142 Potassium Level 5.0 Chloride Level 104 Carbon Dioxide Level 27 Anion Gap 11 Blood Urea Nitrogen 70 H Creatinine 2.99 H Est Glomerular Filtrat Rate mL/min Glucose Level 115 # Calcium Level 8.8 Phosphorus Level 5.2 H Magnesium Level 2.3 Test 11/30/18 08:43 Bedside Glucose 140 Medications Medication Current Medications IV Flush (NS 3 ml) 3 ml PER PROTOCOL IV ; Start 11/16/18 at 19:30 Ondansetron HCl (Zofran Inj) 4 mg Q6H PRN IV NAUSEA/VOMITING; Start 11/16/18 at 19:30 Acetaminophen (Tylenol Tab) 650 mg Q6H PRN PO .PAIN 1-3 OR TEMP; Start 11/16/18 at 19:30 Acetaminophen/ Hydrocodone Bitart ([place] (5/325)) 1 tab Q6H PRN PO .MOD PAIN 4- 6 Last administered on 11/30/18at 00:44; Admin Dose 1 TAB; Start 11/16/18 at 19:30 Docusate Sodium (Colace) 100 mg Q12H PRN PO .CONSTIPATION; Start 11/16/18 at 19:30 Zolpidem Tartrate (Ambien) 5 mg QHS PRN PO .INSOMNIA Last administered on 11/22/18at 23:20; Admin Dose 5 MG; Start 11/16/18 at 19:30 Clotrimazole (Lotrimin Cr) 1 applic BID TOP Last administered on 11/30/18at 09:17; Admin Dose 1 APPLIC; Start 11/16/18 at 21:00 Fluticasone/ Vilanterol (Breo Ellipta 100-25 Mcg Inh) 1 inh DAILY INH Last administered on 11/30/18at 09:16; Admin Dose 1 INH; Start 11/17/18 at 12:00 Albuterol/ Ipratropium (Duoneb) 3 ml Q4H RESP THERAPY HHN Last administered on 11/30/18at 08:54; Admin Dose 3 ML; Start 11/18/18 at 13:00 Metoprolol Tartrate (Lopressor) 5 mg Q4H PRN IV HR>110 Hold SBP<100; Start 11/23/18 at 13:00 Heparin Sodium (Porcine) 250 ml @ 0 mls/hr PER PROTOCOL IV Last administered on 11/28/18at 12:52; Admin Dose 7 MLS/HR; Start 11/24/18 at 10:04; Status Hold IV Flush (NS 10 ml) 10 ml PRN PRN IV IV PROTOCOL; Start 11/24/18 at 16:00 Miscellaneous Information 1 ea NOTE XX Last administered on 11/29/18at 12:55; Admin Dose 1 EA; Start 11/24/18 at 20:30 Glucose (Glutose) 15 gm Q15M PRN PO DECREASED GLUCOSE; Start 11/24/18 at 20:30 Glucose (Glutose) 22.5 gm Q15M PRN PO DECREASED GLUCOSE; Start 11/24/18 at 20:30 Dextrose (D50w Syringe) 25 ml Q15M PRN IV DECREASED GLUCOSE Last administered on 11/26/18at 01:40; Admin Dose 25 ML; Start 11/24/18 at 20:30 Dextrose (D50w Syringe) 50 ml Q15M PRN IV DECREASED GLUCOSE Last administered on 11/29/18at 06:01; Admin Dose 50 ML; Start 11/24/18 at 20:30 Glucagon (Glucagen) 1 mg Q15M PRN IM DECREASED GLUCOSE; Start 11/24/18 at 20:30 Glucose (Glutose) 15 gm Q15M PRN BUCCAL DECREASED GLUCOSE; Start 11/24/18 at 20 :30 Insulin Aspart (Novolog Insulin Pen) NOVOLOG *MILD* ALGORITHM WITH MEALS BEDTIME SC Last administered on 11/28/18at 18:20; Admin Dose 2 UNIT; Start 11/28/18 at 11:30 Metoprolol Tartrate (Lopressor) 50 mg BID PO Last administered on 11/30/18at 09:17; Admin Dose 50 MG; Start 11/28/18 at 21:00 Aspirin (Aspirin) 81 mg DAILY PO Last administered on 11/30/18at 09:17; Admin Dose 81 MG; Start 11/29/18 at 09:00 Furosemide (Lasix) 40 mg BID DIURETICS IV ; Start 11/30/18 at 18:00; Status ZACH MANCIA Nov 30, 2018 09:38
--- NOTE | 2018-11-30 09:42 | PN ---
DATE: 11/30/2018 SUBJECTIVE: The patient is stable, was transferred from intensive care unit to telemetry. No events noted overnight. OBJECTIVE: VITAL SIGNS: Blood pressure is 131/63, pulse 101, respirations 20, temperature 97.8. HEENT: Head is normocephalic. NECK: Supple. HEART: Regular rate. LUNGS: Show diminished breath sounds at the base. ABDOMEN: Soft, nontender to palpation without rebound or guarding. EXTREMITIES: Negative for clubbing, cyanosis. Positive edema. DERMATOLOGIC: No rashes. MUSCULOSKELETAL: No joint effusion. NEUROLOGIC: No change in exam. MEDICATIONS: Reviewed. LABORATORY DATA: Shows sodium 142, potassium 5.0, BUN 70, creatinine 2.99. White count 5.1, hemoglo bin 6.6, platelet count is 56. IMAGING STUDY: From 11/29/2018 was reviewed. Chest x-ray shows worsening pulmonary congestion. ASSESSMENT AND PLAN: 1. Nonoliguric acute kidney injury on top of chronic kidney disease with previous baseline creatinin e of 1.5 mg/dL. Etiology of acute kidney injury is secondary to hemodynamics, possible tubular injur y. The patient is currently dialysis dependent. The patient, however, is showing signs of renal rec overy. Plan would be to do session of hemodialysis today for volume removal as the patient is showin g signs of pulmonary congestion. We will continue to monitor for further renal recovery. 2. Hyperkalemia, improved. 3. Volume overload. Continue ultrafiltration dialysis. The patient also be started on diuretic the rapy. 4. Acute respiratory failure secondary to congestive heart failure, COPD. The patient is clinically improving. Continue medical management. 5. Atrial fibrillation. Continue current treatment plan. 6. Diabetes. Continue current insulin regimen. 7. Acute encephalopathy, etiology is toxic metabolic. 8. Obesity. Continue dietary modification. 9. Aortic stenosis. Continue to monitor. Dictated By: JOCELINE MCCALLUM DO NR/NTS Conf#: [id number] DID#: [id number] CC: JOCELINE MCCALLUM DO; HARIS GREEN MD; JABIER SEBASTIAN MD;*EndCC*
--- NOTE | 2018-11-30 12:36 | CONS ---
Assessment/Plan Assessment/Plan Hospital Course (Demo Recall) Patient is alert feels good she is in hemodialysis no fevers overnight WBC today 5.1 H&H 6.6 and 21.8 platelets 60 BUN 70 creatinine 2.99 Antimicrobial: levofloxacin Indwelling: Right femoral Noel, Soto catheter. PICC Physical examination: Well-developed morbidly obese -[place] woman who in no distress. Head atraumatic normocephalic sclera nonicteric. Neck is supple. Chest rise symmetrical breath sounds diminished to bases. Heart: S1- S2.. Abdomen obese soft, bowel sounds present. Extremities: Bilateral lower extremities edema erythema and multiple wounds Assessment: 1. Acute hypoxemic respiratory failure secondary to pulmonary edema and CHF exacerbation 2. Sepsis, present on admission 3. 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 Urinary tract infection 5. Staph bacteremia consistent with contaminant 6. Morbid obesity 7. Atrial fibrillation 8. Diabetes 9. Acute kidney failure==> on HD 7. Pancytopenia Plan: Doing better, continue present care, hemodialysis per renal, DC antibiotics in a.m. Consultation Date/Type/Reason Admit Date/Time Nov 16, 2018 at 17:17 Initial Consult Date Type of Consult id Requesting Provider: JABIER SEBASTIAN Date/Time of Note DATE: 11/30/18 TIME: 12:35 Exam/Review of Systems Exam Vitals Vital Signs Date Temp Pulse Resp B/P (MAP) Pulse Ox O2 O2 Flow FiO2 Time Delivery Rate 11/30/18 81 12:10 11/30/18 98.3 20 100/65 100 11:27 (77) 11/30/18 Nasal 2.0 11:10 Cannula 11/28/18 28 17:06 Intake and Output 11/29/18 11/29/18 11/30/18 1515:00 23:00 07:00 IntakeIntake Total 600 ml 700 ml OutputOutput Total 300 ml 1000 ml BalanceBalance 300 ml -300 ml Results Result Diagram: 11/30/18 1023 11/30/18 0518 Results 24hrs Laboratory Tests Test 11/29/18 12:54 11/29/18 18:06 11/29/18 20:09 11/30/18 05:18 Bedside Glucose 68 L 84 114 White Blood Count 5.1 Red Blood Count 2.96 L Hemoglobin 6.6 *L Hematocrit 21.8 L Mean Corpuscular 73.6 L Volume Mean Corpuscular 22.3 L Hemoglobin Mean Corpuscular 30.3 L Hemoglobin Concent Red Cell 19.8 H Distribution Width Platelet Count 56 #L Mean Platelet Volume Immature 0.200 Granulocytes % Neutrophils % 80.5 H Lymphocytes % 10.2 L Monocytes % 7.7 Eosinophils % 1.4 Basophils % 0.0 Nucleated Red Blood 0.0 Cells % Immature 0.010 Granulocytes # Neutrophils # 4.1 Lymphocytes # 0.5 L Monocytes # 0.4 Eosinophils # 0.1 Basophils # 0.0 Nucleated Red Blood 0.0 Cells # Sodium Level 142 Potassium Level 5.0 Chloride Level 104 Carbon Dioxide Level 27 Anion Gap 11 Blood Urea Nitrogen 70 H Creatinine 2.99 H Est Glomerular Filtrat Rate mL/min Glucose Level 115 # Calcium Level 8.8 Phosphorus Level 5.2 H Magnesium Level 2.3 Test 11/30/18 08:43 11/30/18 10:23 Bedside Glucose 140 White Blood Count 5.1 Red Blood Count 2.95 L Hemoglobin 6.6 *L Hematocrit 21.8 L Mean Corpuscular 73.9 L Volume Mean Corpuscular 22.4 L Hemoglobin Mean Corpuscular 30.3 L Hemoglobin Concent Red Cell 19.9 H Distribution Width Platelet Count 60 L Mean Platelet Volume Immature 0.600 H Granulocytes % Neutrophils % 79.1 H Lymphocytes % 11.0 L Monocytes % 7.9 Eosinophils % 1.4 Basophils % 0.0 Nucleated Red Blood 0.0 Cells % Immature 0.030 Granulocytes # Neutrophils # 4.0 Lymphocytes # 0.6 L Monocytes # 0.4 Eosinophils # 0.1 Basophils # 0.0 Nucleated Red Blood 0.0 Cells # Medications Medication Current Medications IV Flush (NS 3 ml) 3 ml PER PROTOCOL IV ; Start 11/16/18 at 19:30 Ondansetron HCl (Zofran Inj) 4 mg Q6H PRN IV NAUSEA/VOMITING; Start 11/16/18 at 19:30 Acetaminophen (Tylenol Tab) 650 mg Q6H PRN PO .PAIN 1-3 OR TEMP; Start 11/16/18 at 19:30 Acetaminophen/ Hydrocodone Bitart ([place] (5/325)) 1 tab Q6H PRN PO .MOD PAIN 4- 6 Last administered on 11/30/18at 00:44; Admin Dose 1 TAB; Start 11/16/18 at 19 :30 Docusate Sodium (Colace) 100 mg Q12H PRN PO .CONSTIPATION; Start 11/16/18 at 19:30 Zolpidem Tartrate (Ambien) 5 mg QHS PRN PO .INSOMNIA Last administered on 11/22/18 23:20; Admin Dose 5 MG; Start 11/16/18 at 19:30 Clotrimazole (Lotrimin Cr) 1 applic BID TOP Last administered on 11/30/18 09:1 7; Admin Dose 1 APPLIC; Start 11/16/18 at 21:00 Fluticasone/ Vilanterol (Breo Ellipta 100-25 Mcg Inh) 1 inh DAILY INH Last administered on 11/30/18 09:16; Admin Dose 1 INH; Start 11/17/18 at 12:00 Albuterol/ Ipratropium (Duoneb) 3 ml Q4H RESP THERAPY HHN Last administered on 11/30/18 08:54; Admin Dose 3 ML; Start 11/18/18 at 13:00 Metoprolol Tartrate (Lopressor) 5 mg Q4H PRN IV HR>110 Hold SBP<100; Start 11/23/18 at 13:00 Heparin Sodium (Porcine) 250 ml @ 0 mls/hr PER PROTOCOL IV Last administered on 11/28/18 12:52; Admin Dose 7 MLS/HR; Start 11/24/18 at 10:04; Status Hold IV Flush (NS 10 ml) 10 ml PRN PRN IV IV PROTOCOL; Start 11/24/18 at 16:00 Miscellaneous Information 1 ea NOTE XX Last administered on 11/29/18 12:55; Admin Dose 1 EA; Start 11/24/18 at 20:30 Glucose (Glutose) 15 gm Q15M PRN PO DECREASED GLUCOSE; Start 11/24/18 at 20:30 Glucose (Glutose) 22.5 gm Q15M PRN PO DECREASED GLUCOSE; Start 11/24/18 at 20:30 Dextrose (D50w Syringe) 25 ml Q15M PRN IV DECREASED GLUCOSE Last administered on 11/26/18 01:40; Admin Dose 25 ML; Start 11/24/18 at 20:30 Dextrose (D50w Syringe) 50 ml Q15M PRN IV DECREASED GLUCOSE Last administered on 3/10/19at 06:01; Admin Dose 50 ML; Start 11/24/18 at 20:30 Glucagon (Glucagen) 1 mg Q15M PRN IM DECREASED GLUCOSE; Start 11/24/18 at 20:30 Glucose (Glutose) 15 gm Q15M PRN BUCCAL DECREASED GLUCOSE; Start 11/24/18 at 20:30 Insulin Aspart (Novolog Insulin Pen) NOVOLOG *MILD* ALGORITHM WITH MEALS BEDTIME SC Last administered on 11/28/18 18:20; Admin Dose 2 UNIT; Start 11/28/18 at 11:30 Metoprolol Tartrate (Lopressor) 50 mg BID PO Last administered on 11/30/18 09:17; Admin Dose 50 MG; Start 11/28/18 at 21:00 Aspirin (Aspirin) 81 mg DAILY PO Last administered on 11/30/18at 09:17; Admin Dose 81 MG; Start 11/29/18 at 09:00 Furosemide (Lasix) 40 mg BID DIURETICS IV ; Start 11/30/18 at 18:00 ROCHELLE STERLING NP Nov 30, 2018 12:36
--- NOTE | 2018-11-30 12:58 | CONS ---
Assessment/Plan Assessment/Plan Hospital Course (Demo Recall) IMP: 1.AF with mild RVR-rate controlled on current dose of BB 2.Renal failure 3.hyperkalemia 4.Bradycardia 5.CHF-diastolic acute on chronic EF 50% by echo this admit 6.HTN 7.-mod to severe by echo 08/09 8. Hematuria Recc: -ICU -Now DNI -IVP PRN BB -Continue current PO BB dose -Contieu asa as tolerated for prevention of thromboembolic complications as not xu to remain on heprain due to hematuria and worsening anemia with possible need to hold given worsening anemia -Still holding heparin given hematuria which has resolved but now worsening anemia -Continue abx's and f/u cx data -Follow MS -HD for volume removal and transfuse PRBC's with HD Consultation Date/Type/Reason Admit Date/Time Nov 16, 2018 at 17:17 Initial Consult Date 11/20/18 Type of Consult Cardiology Reason for Consultation AF Requesting Provider: JABIER SEBASTIAN Date/Time of Note DATE: 11/30/18 TIME: 12:55 Exam/Review of Systems Vital Signs Vitals Vital Signs Date Temp Pulse Resp B/P (MAP) Pulse Ox O2 O2 Flow FiO2 Time Delivery Rate 11/30/18 81 12:10 11/30/18 98.3 20 100/65 100 11:27 (77) 11/30/18 Nasal 2.0 11:10 Cannula 11/28/18 28 17:06 Intake and Output 11/29/18 11/29/18 11/30/18 1515:00 23:00 07:00 IntakeIntake Total 600 ml 700 ml OutputOutput Total 300 ml 1000 ml BalanceBalance 300 ml -300 ml Exam Exam Review of Systems: CONSTITUTIONAL: No fevers, chills. PULMONARY: No sob CARDIOVASCULAR: No chest pain/palpitations GASTROINTESTINAL: No nausea/vomiting. GENITOURINARY: No hematuria/dysuria. MUSCULOSKELETAL: No myagias/arthalgias. PSYCHIATRIC: The patient denies depression. NEUROLOGIC: No weakness Constitutional: alert, oriented Psych: no complaints Head: normocephalic ENMT: mucosa pink and moist Neck: supple, jvd (9 cm water) Respiratory: clear to auscultation Cardiovascular: regular rate and rhythm Gastrointestinal: soft, non-tender Musculoskeletal: muscle tone (normal) Extremities: edema (bilateral LE) Neurological: other (No focal deficits) Labs Result Diagram: 11/30/18 1023 11/30/18 0518 Results 24hrs Laboratory Tests Test 11/29/18 18:06 11/29/18 20:09 11/30/18 05:18 11/30/18 08:43 Bedside Glucose 84 114 140 White Blood Count 5.1 Red Blood Count 2.96 L Hemoglobin 6.6 *L Hematocrit 21.8 L Mean Corpuscular 73.6 L Volume Mean Corpuscular 22.3 L Hemoglobin Mean Corpuscular 30.3 L Hemoglobin Concent Red Cell 19.8 H Distribution Width Platelet Count 56 #L Mean Platelet Volume Immature 0.200 Granulocytes % Neutrophils % 80.5 H Lymphocytes % 10.2 L Monocytes % 7.7 Eosinophils % 1.4 Basophils % 0.0 Nucleated Red Blood 0.0 Cells % Immature 0.010 Granulocytes # Neutrophils # 4.1 Lymphocytes # 0.5 L Monocytes # 0.4 Eosinophils # 0.1 Basophils # 0.0 Nucleated Red Blood 0.0 Cells # Sodium Level 142 Potassium Level 5.0 Chloride Level 104 Carbon Dioxide Level 27 Anion Gap 11 Blood Urea Nitrogen 70 H Creatinine 2.99 H Est Glomerular Filtrat Rate mL/min Glucose Level 115 # Calcium Level 8.8 Phosphorus Level 5.2 H Magnesium Level 2.3 Test 11/30/18 10:23 White Blood Count 5.1 Red Blood Count 2.95 L Hemoglobin 6.6 *L Hematocrit 21.8 L Mean Corpuscular 73.9 L Volume Mean Corpuscular 22.4 L Hemoglobin Mean Corpuscular 30.3 L Hemoglobin Concent Red Cell 19.9 H Distribution Width Platelet Count 60 L Mean Platelet Volume Immature 0.600 H Granulocytes % Neutrophils % 79.1 H Lymphocytes % 11.0 L Monocytes % 7.9 Eosinophils % 1.4 Basophils % 0.0 Nucleated Red Blood 0.0 Cells % Immature 0.030 Granulocytes # Neutrophils # 4.0 Lymphocytes # 0.6 L Monocytes # 0.4 Eosinophils # 0.1 Basophils # 0.0 Nucleated Red Blood 0.0 Cells # Medications Medications Current Medications IV Flush (NS 3 ml) 3 ml PER PROTOCOL IV ; Start 11/16/18 at 19:30 Ondansetron HCl (Zofran Inj) 4 mg Q6H PRN IV NAUSEA/VOMITING; Start 11/16/18 at 19:30 Acetaminophen (Tylenol Tab) 650 mg Q6H PRN PO .PAIN 1-3 OR TEMP; Start 11/16/18 at 19:30 Acetaminophen/ Hydrocodone Bitart ([place] (5/325)) 1 tab Q6H PRN PO .MOD PAIN 4- 6 Last administered on 11/30/18 00:44; Admin Dose 1 TAB; Start 11/16/18 at 19:30 Docusate Sodium (Colace) 100 mg Q12H PRN PO .CONSTIPATION; Start 11/16/18 at 19:30 Zolpidem Tartrate (Ambien) 5 mg QHS PRN PO .INSOMNIA Last administered on 11/22/18 23:20; Admin Dose 5 MG; Start 11/16/18 at 19:30 Clotrimazole (Lotrimin Cr) 1 applic BID TOP Last administered on 11/30/18 09:17; Admin Dose 1 APPLIC; Start 11/16/18 at 21:00 Fluticasone/ Vilanterol (Breo Ellipta 100-25 Mcg Inh) 1 inh DAILY INH Last administered on 11/30/18 09:16; Admin Dose 1 INH; Start 11/17/18 at 12:00 Albuterol/ Ipratropium (Duoneb) 3 ml Q4H RESP THERAPY HHN Last administered on 11/30/18 08:54; Admin Dose 3 ML; Start 11/18/18 at 13:00 Metoprolol Tartrate (Lopressor) 5 mg Q4H PRN IV HR>110 Hold SBP<100; Start 11/23/18 at 13:00 Heparin Sodium (Porcine) 250 ml @ 0 mls/hr PER PROTOCOL IV Last administered on 11/28/18 12:52; Admin Dose 7 MLS/HR; Start 11/24/18 at 10:04; Status Hold IV Flush (NS 10 ml) 10 ml PRN PRN IV IV PROTOCOL; Start 11/24/18 at 16:00 Miscellaneous Information 1 ea NOTE XX Last administered on 11/29/18 12:55; Admin Dose 1 EA; Start 11/24/18 at 20:30 Glucose (Glutose) 15 gm Q15M PRN PO DECREASED GLUCOSE; Start 11/24/18 at 20:30 Glucose (Glutose) 22.5 gm Q15M PRN PO DECREASED GLUCOSE; Start 11/24/18 at 20:30 Dextrose (D50w Syringe) 25 ml Q15M PRN IV DECREASED GLUCOSE Last administered on 11/26/18at 01:40; Admin Dose 25 ML; Start 11/24/18 at 20:30 Dextrose (D50w Syringe) 50 ml Q15M PRN IV DECREASED GLUCOSE Last administered on 11/29/18at 06:01; Admin Dose 50 ML; Start 11/24/18 at 20:30 Glucagon (Glucagen) 1 mg Q15M PRN IM DECREASED GLUCOSE; Start 11/24/18 at 20:30 Glucose (Glutose) 15 gm Q15M PRN BUCCAL DECREASED GLUCOSE; Start 11/24/18 at 20:30 Insulin Aspart (Novolog Insulin Pen) NOVOLOG *MILD* ALGORITHM WITH MEALS BEDTIME SC Last administered on 11/28/18at 18:20; Admin Dose 2 UNIT; Start at 11:30 Metoprolol Tartrate (Lopressor) 50 mg BID PO Last administered on 11/30/18at 09:17; Admin Dose 50 MG; Start 11/28/18 at 21:00 Aspirin (Aspirin) 81 mg DAILY PO Last administered on 11/30/18at 09:17; Admin Dose 81 MG; Start 11/29/18 at 09:00 Furosemide (Lasix) 40 mg BID DIURETICS IV ; Start 11/30/18 at 18:00 GHASSAN SHERMAN Nov 30, 2018 12:58
--- NOTE | 2018-11-30 16:23 | PN ---
Date/Time of Note Date/Time of Note DATE: 11/30/18 TIME: 16:21 Assessment/Plan VTE Prophylaxis Risk score (from Ns)>0 risk: 5 Pharmacological prophylaxis: NA/contraindicated Pharm contraindication: renal impairment Assessment/Plan Hospital Course 83 yo female with , diastolic CHF with acute respiratory failure and volume overload from CHF and BRIE. She was transferred to ICU and was at risk for intubation. HD was initiated and patient has improved markedly. Respiratory status stable. Remains a bit hypervolemic. Holding HD now. Patient's family reversed their decision for palliative care. Continue to want aggressive care now but remains DNR Hypoglycemia event: - Stop lantus, monitor sugars Acute respiratory failure 2/2 volume overload: - patient's status has improved, now stable on NC - Continue O2 by NC BRIE: - Kidneys recovering with good urine output - Consider diuretics per renal - Holding off on HD A Fib: - Hold heparin given hematuria - Digoxin given Cirrhosis Septic encephelopathy, improving Sepsis - will stop abx at this point, no clear source Debility secondary to deconditioning on comorbidities -Continue PT, mcc placement DNR DC planning: Patient is unable to ambulate and require short-term mcc placement until she regains her ability to ambulate, case planner to assist Result Diagram: 11/30/18 1023 11/30/18 0518 Results 24hrs Laboratory Tests Test 11/29/18 18:06 11/29/18 20:09 11/30/18 05:18 11/30/18 08:43 Bedside Glucose 84 114 140 White Blood Count 5.1 Red Blood Count 2.96 L Hemoglobin 6.6 *L Hematocrit 21.8 L Mean Corpuscular 73.6 L Volume Mean Corpuscular 22.3 L Hemoglobin Mean Corpuscular 30.3 L Hemoglobin Concent Red Cell 19.8 H Distribution Width Platelet Count 56 #L Mean Platelet Volume Immature 0.200 Granulocytes % Neutrophils % 80.5 H Lymphocytes % 10.2 L Monocytes % 7.7 Eosinophils % 1.4 Basophils % 0.0 Nucleated Red Blood 0.0 Cells % Immature 0.010 Granulocytes # Neutrophils # 4.1 Lymphocytes # 0.5 L Monocytes # 0.4 Eosinophils # 0.1 Basophils # 0.0 Nucleated Red Blood 0.0 Cells # Sodium Level 142 Potassium Level 5.0 Chloride Level 104 Carbon Dioxide Level 27 Anion Gap 11 Blood Urea Nitrogen 70 H Creatinine 2.99 H Est Glomerular Filtrat Rate mL/min Glucose Level 115 # Calcium Level 8.8 Phosphorus Level 5.2 H Magnesium Level 2.3 Test 11/30/18 10:23 11/30/18 13:02 White Blood Count 5.1 Red Blood Count 2.95 L Hemoglobin 6.6 *L Hematocrit 21.8 L Mean Corpuscular 73.9 L Volume Mean Corpuscular 22.4 L Hemoglobin Mean Corpuscular 30.3 L Hemoglobin Concent Red Cell 19.9 H Distribution Width Platelet Count 60 L Mean Platelet Volume Immature 0.600 H Granulocytes % Neutrophils % 79.1 H Lymphocytes % 11.0 L Monocytes % 7.9 Eosinophils % 1.4 Basophils % 0.0 Nucleated Red Blood 0.0 Cells % Immature 0.030 Granulocytes # Neutrophils # 4.0 Lymphocytes # 0.6 L Monocytes # 0.4 Eosinophils # 0.1 Basophils # 0.0 Nucleated Red Blood 0.0 Cells # Bedside Glucose 148 Subjective 24 Hr Interval Summary Constitutional: no complaints Exam/Review of Systems Exam Vitals Vital Signs Date Temp Pulse Resp B/P (MAP) Pulse Ox O2 O2 Flow FiO2 Time Delivery Rate 11/30/18 98.0 70 20 117/57 90 15:14 (77) 11/30/18 Nasal 2.0 14:25 Cannula 11/28/18 28 17:06 Intake and Output 11/29/18 11/29/18 11/30/18 1515:00 23:00 07:00 IntakeIntake Total 600 ml 700 ml OutputOutput Total 300 ml 1000 ml BalanceBalance 300 ml -300 ml Constitutional: alert, oriented Respiratory: clear to auscultation Cardiovascular: regular rate and rhythm Gastrointestinal: soft; No distended Musculoskeletal: nl extremities to inspection Results Results 24hrs Laboratory Tests Test 11/29/18 18:06 11/29/18 20:09 11/30/18 05:18 11/30/18 08:43 Bedside Glucose 84 114 140 White Blood Count 5.1 Red Blood Count 2.96 L Hemoglobin 6.6 *L Hematocrit 21.8 L Mean Corpuscular 73.6 L Volume Mean Corpuscular 22.3 L Hemoglobin Mean Corpuscular 30.3 L Hemoglobin Concent Red Cell 19.8 H Distribution Width Platelet Count 56 #L Mean Platelet Volume Immature 0.200 Granulocytes % Neutrophils % 80.5 H Lymphocytes % 10.2 L Monocytes % 7.7 Eosinophils % 1.4 Basophils % 0.0 Nucleated Red Blood 0.0 Cells % Immature 0.010 Granulocytes # Neutrophils # 4.1 Lymphocytes # 0.5 L Monocytes # 0.4 Eosinophils # 0.1 Basophils # 0.0 Nucleated Red Blood 0.0 Cells # Sodium Level 142 Potassium Level 5.0 Chloride Level 104 Carbon Dioxide Level 27 Anion Gap 11 Blood Urea Nitrogen 70 H Creatinine 2.99 H Est Glomerular Filtrat Rate mL/min Glucose Level 115 # Calcium Level 8.8 Phosphorus Level 5.2 H Magnesium Level 2.3 Test 11/30/18 10:23 11/30/18 13:02 White Blood Count 5.1 Red Blood Count 2.95 L Hemoglobin 6.6 *L Hematocrit 21.8 L Mean Corpuscular 73.9 L Volume Mean Corpuscular 22.4 L Hemoglobin Mean Corpuscular 30.3 L Hemoglobin Concent Red Cell 19.9 H Distribution Width Platelet Count 60 L Mean Platelet Volume Immature 0.600 H Granulocytes % Neutrophils % 79.1 H Lymphocytes % 11.0 L Monocytes % 7.9 Eosinophils % 1.4 Basophils % 0.0 Nucleated Red Blood 0.0 Cells % Immature 0.030 Granulocytes # Neutrophils # 4.0 Lymphocytes # 0.6 L Monocytes # 0.4 Eosinophils # 0.1 Basophils # 0.0 Nucleated Red Blood 0.0 Cells # Bedside Glucose 148 Medications Medication Current Medications IV Flush (NS 3 ml) 3 ml PER PROTOCOL IV ; Start 11/16/18 at 19:30 Ondansetron HCl (Zofran Inj) 4 mg Q6H PRN IV NAUSEA/VOMITING; Start 11/16/18 at 19:30 Acetaminophen (Tylenol Tab) 650 mg Q6H PRN PO .PAIN 1-3 OR TEMP; Start 11/16/18 at 19:30 Acetaminophen/ Hydrocodone Bitart ([place] (5/325)) 1 tab Q6H PRN PO .MOD PAIN 4- 6 Last administered on 11/30/18at 00:44; Admin Dose 1 TAB; Start 11/16/18 at 19:30 Docusate Sodium (Colace) 100 mg Q12H PRN PO .CONSTIPATION; Start 11/16/18 at 19:30 Zolpidem Tartrate (Ambien) 5 mg QHS PRN PO .INSOMNIA Last administered on 11/22/18 23:20; Admin Dose 5 MG; Start 11/16/18 at 19:30 Clotrimazole (Lotrimin Cr) 1 applic BID TOP Last administered on 11/30/18 09:17; Admin Dose 1 APPLIC; Start 11/16/18 at 21:00 Fluticasone/ Vilanterol (Breo Ellipta 100-25 Mcg Inh) 1 inh DAILY INH Last administered on 11/30/18 09:16; Admin Dose 1 INH; Start 11/17/18 at 12:00 Albuterol/ Ipratropium (Duoneb) 3 ml Q4H RESP THERAPY HHN Last administered on 11/30/18 08:54; Admin Dose 3 ML; Start 11/18/18 at 13:00 Metoprolol Tartrate (Lopressor) 5 mg Q4H PRN IV HR>110 Hold SBP<100; Start 11/23/18 at 13:00 Heparin Sodium (Porcine) 250 ml @ 0 mls/hr PER PROTOCOL IV Last administered on 11/28/18 12:52; Admin Dose 7 MLS/HR; Start 11/24/18 at 10:04; Status Hold IV Flush (NS 10 ml) 10 ml PRN PRN IV IV PROTOCOL; Start 11/24/18 at 16:00 Miscellaneous Information 1 ea NOTE XX Last administered on 11/29/18 12:55; Admin Dose 1 EA; Start 11/24/18 at 20:30 Glucose (Glutose) 15 gm Q15M PRN PO DECREASED GLUCOSE; Start 11/24/18 at 20:30 Glucose (Glutose) 22.5 gm Q15M PRN PO DECREASED GLUCOSE; Start 11/24/18 at 20:30 Dextrose (D50w Syringe) 25 ml Q15M PRN IV DECREASED GLUCOSE Last administered on 11/26/18 01:40; Admin Dose 25 ML; Start 11/24/18 at 20:30 Dextrose (D50w Syringe) 50 ml Q15M PRN IV DECREASED GLUCOSE Last administered on 11/29/18 06:01; Admin Dose 50 ML; Start 11/24/18 at 20:30 Glucagon (Glucagen) 1 mg Q15M PRN IM DECREASED GLUCOSE; Start 11/24/18 at 20:30 Glucose (Glutose) 15 gm Q15M PRN BUCCAL DECREASED GLUCOSE; Start 11/24/18 at 20:30 Insulin Aspart (Novolog Insulin Pen) NOVOLOG *MILD* ALGORITHM WITH MEALS BEDTIME SC Last administered on 11/30/18at 13:07; Admin Dose 1 UNIT; Start 11/28/18 at 11:30 Metoprolol Tartrate (Lopressor) 50 mg BID PO Last administered on 11/30/18at 09:17; Admin Dose 50 MG; Start 11/28/18 at 21:00 Aspirin (Aspirin) 81 mg DAILY PO Last administered on 11/30/18at 09:17; Admin Dose 81 MG; Start 11/29/18 at 09:00 Furosemide (Lasix) 40 mg BID DIURETICS IV ; Start 11/30/18 at 18:00 JABIER SEBASTIAN Nov 30, 2018 16:23
[2018-11-30] MEDS: FUROSEMIDE 40 MG INJ IV SCH (17:33)
[2018-12-01] VITALS (11 sets, daily range): BP systolic 90–128; BP diastolic 52–65; PULSE 69–93; RESP 18–20
[2018-12-01] MEDS: ALBUTEROL/IPRATROPIUM (NEB) 3 ML AMP HHN SCH ×6 (01:05→21:00)
--- NOTE | 2018-12-01 07:02 | CONS ---
Consultation Date/Type/Reason Admit Date/Time Nov 16, 2018 at 17:17 Initial Consult Date Requesting Provider: JABIER SEBASTIAN Date/Time of Note DATE: 12/01/18 TIME: 07:01 24 HR Interval Summary Free Text/Dictation Patient is on medical surgical floor right now is doing extremely well, she denies nausea vomiting chest pain shortness of breath or cough.. Have not spoken to family members recently and in speaking to the nursing staff they have not visited in the last couple of days. During my last conversation with them they change the code to DO NOT RESUSCITATE but to pursue all other levels of care. Family members should be updated insofar as her current medical condition I will reach out to them. Exam/Review of Systems Exam Vitals Vital Signs Date Temp Pulse Resp B/P (MAP) Pulse Ox O2 O2 Flow FiO2 Time Delivery Rate 12/01/18 92 18 93 Nasal 3.0 04:06 Cannula 12/01/18 98.0 128/65 03:37 (86) 11/28/18 28 17:06 Intake and Output 11/30/18 11/30/18 12/01/18 1515:00 23:00 07:00 IntakeIntake Total 800 ml OutputOutput Total 2000 ml 1800 ml BalanceBalance -2000 ml -1000 ml Results Result Diagram: 11/30/18 1023 11/30/18 0518 Results 24hrs Laboratory Tests Test 11/30/18 08:43 11/30/18 10:23 11/30/18 13:02 11/30/18 17:35 Bedside Glucose 140 148 139 White Blood Count 5.1 Red Blood Count 2.95 L Hemoglobin 6.6 *L Hematocrit 21.8 L Mean Corpuscular 73.9 L Volume Mean Corpuscular 22.4 L Hemoglobin Mean Corpuscular 30.3 L Hemoglobin Concent Red Cell 19.9 H Distribution Width Platelet Count 60 L Mean Platelet Volume Immature 0.600 H Granulocytes % Neutrophils % 79.1 H Lymphocytes % 11.0 L Monocytes % 7.9 Eosinophils % 1.4 Basophils % 0.0 Nucleated Red Blood 0.0 Cells % Immature 0.030 Granulocytes # Neutrophils # 4.0 Lymphocytes # 0.6 L Monocytes # 0.4 Eosinophils # 0.1 Basophils # 0.0 Nucleated Red Blood 0.0 Cells # Test 11/30/18 23:09 Bedside Glucose 175 Medications Medication Current Medications IV Flush (NS 3 ml) 3 ml PER PROTOCOL IV ; Start 11/16/18 at 19:30 Ondansetron HCl (Zofran Inj) 4 mg Q6H PRN IV NAUSEA/VOMITING; Start 11/16/18 at 19:30 Acetaminophen (Tylenol Tab) 650 mg Q6H PRN PO .PAIN 1-3 OR TEMP; Start 11/16/18 at 19:30 Acetaminophen/ Hydrocodone Bitart ([place] (5/325)) 1 tab Q6H PRN PO .MOD PAIN 4- 6 Last administered on 11/30/18 00:44; Admin Dose 1 TAB; Start 11/16/18 at 19:30 Docusate Sodium (Colace) 100 mg Q12H PRN PO .CONSTIPATION; Start 11/16/18 at 19:30 Zolpidem Tartrate (Ambien) 5 mg QHS PRN PO .INSOMNIA Last administered on 11/22/18 23:20; Admin Dose 5 MG; Start 11/16/18 at 19:30 Clotrimazole (Lotrimin Cr) 1 applic BID TOP Last administered on 11/30/18 21:00; Admin Dose 1 APPLIC; Start 11/16/18 at 21:00 Fluticasone/ Vilanterol (Breo Ellipta 100-25 Mcg Inh) 1 inh DAILY INH Last administered on 11/30/18 09:16; Admin Dose 1 INH; Start 11/17/18 at 12:00 Albuterol/ Ipratropium (Duoneb) 3 ml Q4H RESP THERAPY HHN Last administered on 12/01/18 04:06; Admin Dose 3 ML; Start 11/18/18 at 13:00 Metoprolol Tartrate (Lopressor) 5 mg Q4H PRN IV HR>110 Hold SBP<100; Start 11/23/18 at 13:00 Heparin Sodium (Porcine) 250 ml @ 0 mls/hr PER PROTOCOL IV Last administered on 11/28/18 12:52; Admin Dose 7 MLS/HR; Start 11/24/18 at 10:04; Status Hold IV Flush (NS 10 ml) 10 ml PRN PRN IV IV PROTOCOL; Start 11/24/18 at 16:00 Miscellaneous Information 1 ea NOTE XX Last administered on 3/10/19at 12:55; A dmin Dose 1 EA; Start 11/24/18 at 20:30 Glucose (Glutose) 15 gm Q15M PRN PO DECREASED GLUCOSE; Start 11/24/18 at 20:30 Glucose (Glutose) 22.5 gm Q15M PRN PO DECREASED GLUCOSE; Start 11/24/18 at 20:30 Dextrose (D50w Syringe) 25 ml Q15M PRN IV DECREASED GLUCOSE Last administered on 11/26/18at 01:40; Admin Dose 25 ML; Start 11/24/18 at 20:30 Dextrose (D50w Syringe) 50 ml Q15M PRN IV DECREASED GLUCOSE Last administered on 11/29/18at 06:01; Admin Dose 50 ML; Start 11/24/18 at 20:30 Glucagon (Glucagen) 1 mg Q15M PRN IM DECREASED GLUCOSE; Start 11/24/18 at 20:30 Glucose (Glutose) 15 gm Q15M PRN BUCCAL DECREASED GLUCOSE; Start 11/24/18 at 20:30 Insulin Aspart (Novolog Insulin Pen) NOVOLOG *MILD* ALGORITHM WITH MEALS BEDTIME SC Last administered on 11/30/18 13:07; Admin Dose 1 UNIT; Start 11/28/18 at 11:30 Metoprolol Tartrate (Lopressor) 50 mg BID PO Last administered on 11/30/18at 23:15; Admin Dose 50 MG; Start 11/28/18 at 21:00 Aspirin (Aspirin) 81 mg DAILY PO Last administered on 11/30/18 09:17; Admin Dose 81 MG; Start 11/29/18 at 09:00 Furosemide (Lasix) 40 mg BID DIURETICS IV Last administered on 11/30/18at 17:33; Admin Dose 40 MG; Start 11/30/18 at 18:00 MINI PAEZ Dec 01, 2018 07:02
[2018-12-01] MEDS: INSULIN ASPART [NOVOLOG] 3 ML PEN SC SCH ×4 (07:56→21:00)
[2018-12-01] MEDS: FUROSEMIDE 40 MG INJ IV SCH ×2 (07:58→17:25)
[2018-12-01] MEDS: FLUTICASONE/VILANTEROL 100-25 INH SCH (08:11)
[2018-12-01] MEDS: CLOTRIMAZOLE 1% 30 GM CR TOP SCH ×2 (08:11→21:00)
[2018-12-01] MEDS: METOPROLOL 50 MG TAB PO SCH ×2 (08:12→22:12)
[2018-12-01] MEDS: ASPIRIN 81 MG TAB PO SCH (08:12)
--- NOTE | 2018-12-01 08:40 | PN ---
DATE: 12/01/2018 SUBJECTIVE: The patient this morning is complaining of difficulty breathing, shortness of breath. T he patient had hemodialysis yesterday with approximately 2.5 liters removed. OBJECTIVE: VITAL SIGNS: Blood pressure is 125/65, respirations 20, pulse 92, temperature 98.4. HEENT: Head is normocephalic. NECK: Supple. HEART: Regular rate. LUNGS: Show diminished breath sounds at the base. ABDOMEN: Soft, nontender to palpation. No rebound or guarding. EXTREMITIES: Negative for clubbing, cyanosis. Positive edema. DERMATOLOGIC: No rashes. MUSCULOSKELETAL: No joint effusion. NEUROLOGIC: No change in exam. MEDICATIONS: Reviewed. LABORATORY DATA: Currently pending. ASSESSMENT AND PLAN: 1. Nonoliguric acute kidney injury on top of chronic kidney disease with previous baseline creatinin e of 1.5 mg/dL. Etiology of acute kidney injury is secondary to hemodynamics, possible acute tubular necrosis. The patient was initiated on hemodialysis; however, the patient is showing signs of renal recovery, as urinary output has improved. The patient did have dialysis yesterday. Plan is to cont inue to monitor renal function. Monitor I's and O's closely. We will continue intermittent dialysis as needed. 2. Volume overload. The patient is slowly improving. Continue ultrafiltration dialysis. Continue diuretic therapy. 3. Anemia. Continue to monitor hemoglobin and hematocrit levels. 4. Mineral bone disorder, monitor calcium and phosphorus levels. 5. Hypokalemia, improved. 6. Acute respiratory failure, etiology is secondary to congestive heart failure, reactive airway dis ease. The patient is more labored this morning. We will repeat an x-ray. If there is evidence of v olume overload or pulmonary congestion we will order another session of dialysis. Continue nebulizer s. 7. Atrial fibrillation. Continue current treatment plan. 8. Diabetes. Continue current insulin regimen. 9. Acute encephalopathy, etiology is toxic metabolic. 10. Obesity. Continue dietary modification. 11. Aortic stenosis. Continue to monitor. Dictated By: JOCELINE MCCALLUM DO NR/NTS Conf#: [id number] DID#: [id number] CC: JOCELINE MCCALLUM DO; JABIER SEBASTIAN MD;*End*
--- NOTE | 2018-12-01 09:48 | CONS ---
Assessment/Plan Assessment/Plan Assessment/Plan (Daily) Assessment and recommendations; 1. Patient admitted with shortness of breath due to element of severe congestive heart failure as well as acute renal failure requiring hemodialysis now. There is marked overall clinical improvement over the last few days. 2. Interval resolution of encephalopathy. That was likely metabolic in etiology. 3. Chronic atrial fibrillation. 4. Anemia likely heparin-induced. Heparin discontinued. 5. History of hypertension. Continue current supportive care. Hemodialysis per suggestion clerk. Monitor H&H. Consultation Date/Type/Reason Admit Date/Time Nov 16, 2018 at 17:17 Initial Consult Date Type of Consult Pulmonary/critical care Patient's condition has taken a turn for the worse with altered mental status. Patient now has been transferred to ICU. Hemodialysis will be started shortly. Patient appears confused. But is hemodynamically stable. General exam; elderly woman, awake, agitated off and on. Requesting Provider: JABIER SEBASTIAN Date/Time of Note DATE: 12/01/18 TIME: 09:46 24 HR Interval Summary Free Text/Dictation Patient's condition is stable. Remains awake and alert. Denies any shortness of breath at rest. General exam; elderly lady, awake alert, currently in no distress. Exam/Review of Systems Exam Vitals Vital Signs Date Temp Pulse Resp B/P (MAP) Pulse Ox O2 O2 Flow FiO2 Time Delivery Rate 12/01/18 84 08:00 12/01/18 98.4 20 125/65 100 07:15 (85) 12/01/18 Nasal 3.0 04:06 Cannula 11/28/18 28 17:06 Intake and Output 11/30/18 11/30/18 12/01/18 1414:59 22:59 06:59 IntakeIntake Total 800 ml OutputOutput Total 2000 ml 1800 ml BalanceBalance -2000 ml -1000 ml Exam H EENT exam; supple neck, positive JVD. No lymphadenopathy. Midline trachea. No thyromegaly. Patient is edentulous. No neck masses. Chest exam; diminished breath sounds bilaterally. No added sounds. S1-S2 audible, no murmurs. Irregular rhythm. Abdomen exam; soft, nondistended. No organomegaly. Bowel sounds audible. Extremity exam; trace edema. INTERPRETATIVE DANCER exam; no focal deficit. Results Result Diagram: 11/30/18 1023 11/30/18 0518 Results 24hrs Laboratory Tests Test 11/30/18 10:23 11/30/18 13:02 11/30/18 17:35 11/30/18 23:09 White Blood Count 5.1 Red Blood Count 2.95 L Hemoglobin 6.6 *L Hematocrit 21.8 L Mean Corpuscular 73.9 L Volume Mean Corpuscular 22.4 L Hemoglobin Mean Corpuscular 30.3 L Hemoglobin Concen t Red Cell 19.9 H Distribution Width Platelet Count 60 L Mean Platelet Volume Immature 0.600 H Granulocytes % Neutrophils % 79.1 H Lymphocytes % 11.0 L Monocytes % 7.9 Eosinophils % 1.4 Basophils % 0.0 Nucleated Red 0.0 Blood Cells % Immature 0.030 Granulocytes # Neutrophils # 4.0 Lymphocytes # 0.6 L Monocytes # 0.4 Eosinophils # 0.1 Basophils # 0.0 Nucleated Red 0.0 Blood Cells # Bedside Glucose 148 139 175 Test 12/01/18 07:50 12/01/18 08:53 Bedside Glucose 143 Lab Scanned BLOOD TRANSFUSIO Report N Medications Medication Current Medications IV Flush (NS 3 ml) 3 ml PER PROTOCOL IV ; Start 11/16/18 at 19:30 Ondansetron HCl (Zofran Inj) 4 mg Q6H PRN IV NAUSEA/VOMITING; Start 11/16/18 at 19:30 Acetaminophen (Tylenol Tab) 650 mg Q6H PRN PO .PAIN 1-3 OR TEMP; Start 11/16/18 at 19:30 Acetaminophen/ Hydrocodone Bitart ([place] (5/325)) 1 tab Q6H PRN PO .MOD PAIN 4- 6 Last administered on 11/30/18at 00:44; Admin Dose 1 TAB; Start 11/16/18 at 19:30 Docusate Sodium (Colace) 100 mg Q12H PRN PO .CONSTIPATION; Start 11/16/18 at 19:30 Zolpidem Tartrate (Ambien) 5 mg QHS PRN PO .INSOMNIA Last administered on 11/22/18at 23:20; Admin Dose 5 MG; Start 11/16/18 at 19:30 Clotrimazole (Lotrimin Cr) 1 applic BID TOP Last administered on 12/01/18at 0 8:11; Admin Dose 1 APPLIC; Start 11/16/18 at 21:00 Fluticasone/ Vilanterol (Breo Ellipta 100-25 Mcg Inh) 1 inh DAILY INH Last administered on 12/01/18at 08:11; Admin Dose 1 INH; Start 11/17/18 at 12:00 Albuterol/ Ipratropium (Duoneb) 3 ml Q4H RESP THERAPY HHN Last administered on 12/01/18 09:26; Admin Dose 3 ML; Start 11/18/18 at 13:00 Metoprolol Tartrate (Lopressor) 5 mg Q4H PRN IV HR>110 Hold SBP<100; Start 11/23/18 at 13:00 Heparin Sodium (Porcine) 250 ml @ 0 mls/hr PER PROTOCOL IV Last administered on 11/28/18 12:52; Admin Dose 7 MLS/HR; Start 11/24/18 at 10:04; Status Hold IV Flush (NS 10 ml) 10 ml PRN PRN IV IV PROTOCOL; Start 11/24/18 at 16:00 Miscellaneous Information 1 ea NOTE XX Last administered on 11/29/18at 12:55; Admin Dose 1 EA; Start 11/24/18 at 20:30 Glucose (Glutose) 15 gm Q15M PRN PO DECREASED GLUCOSE; Start 11/24/18 at 20:30 Glucose (Glutose) 22.5 gm Q15M PRN PO DECREASED GLUCOSE; Start 11/24/18 at 20:30 Dextrose (D50w Syringe) 25 ml Q15M PRN IV DECREASED GLUCOSE Last administered on 11/26/18at 01:40; Admin Dose 25 ML; Start 11/24/18 at 20:30 Dextrose (D50w Syringe) 50 ml Q15M PRN IV DECREASED GLUCOSE Last administered on 11/29/18at 06:01; Admin Dose 50 ML; Start 11/24/18 at 20:30 Glucagon (Glucagen) 1 mg Q15M PRN IM DECREASED GLUCOSE; Start 11/24/18 at 20:30 Glucose (Glutose) 15 gm Q15M PRN BUCCAL DECREASED GLUCOSE; Start 11/24/18 at 20:30 Insulin Aspart (Novolog Insulin Pen) NOVOLOG *MILD* ALGORITHM WITH MEALS BEDTIME SC Last administered on 12/01/18 07:56; Admin Dose 1 UNIT; Start 11/28/18 at 11:30 Metoprolol Tartrate (Lopressor) 50 mg BID PO Last administered on 12/01/18 08:12; Admin Dose 50 MG; Start 11/28/18 at 21:00 Aspirin (Aspirin) 81 mg DAILY PO Last administered on 12/01/18 08:12; Admin Dose 81 MG; Start 11/29/18 at 09:00 Furosemide (Lasix) 40 mg BID DIURETICS IV Last administered on 12/01/18 07:58; Admin Dose 40 MG; Start 11/30/18 at 18:00 ZACH HEALY 12, 2019 09:48
--- NOTE | 2018-12-01 13:28 | CONS ---
Assessment/Plan Assessment/Plan Hospital Course (Demo Recall) No events, looks comfortable, no fevers Antimicrobial: none Indwelling: Right femoral Noel, Soto catheter. PICC Physical examination: Well-developed morbidly obese -[place] woman who in no distress. Head atraumatic normocephalic sclera nonicteric. Neck is supple. Chest rise symmetrical breath sounds diminished to bases. Heart: S1- S2.. Abdomen obese soft, bowel sounds present. Extremities: Bilateral lower extremities edema erythema and multiple wounds Assessment: 1. Acute hypoxemic respiratory failure secondary to pulmonary edema and CHF exacerbation 2. S/p sepsis, present on admission 3. 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 S/p Urinary tract infection 5. Staph bacteremia consistent with contaminant 6. Morbid obesity 7. Atrial fibrillation 8. Diabetes 9. Acute kidney failure==> on HD 7. Pancytopenia Plan: Stable, off abx, continue local wound care, hemodialysis per renal Consultation Date/Type/Reason Admit Date/Time Nov 16, 2018 at 17:17 Initial Consult Date Type of Consult id Requesting Provider: JABIER SEBASTIAN Date/Time of Note DATE: 12/01/18 TIME: 13:27 Exam/Review of Systems Exam Vitals Vital Signs Date Temp Pulse Resp B/P (MAP) Pulse Ox O2 O2 Flow FiO2 Time Delivery Rate 12/01/18 82 12:00 12/01/18 98.3 20 110/54 97 11:20 (72) 12/01/18 Nasal 3.0 09:26 Cannula 11/28/18 28 17:06 Intake and Output 11/30/18 11/30/18 12/01/18 1515:00 23:00 07:00 IntakeIntake Total 800 ml OutputOutput Total 2000 ml 1800 ml BalanceBalance -2000 ml -1000 ml Results Result Diagram: 11/30/18 1023 11/30/18 0518 Results 24hrs Laboratory Tests Test 11/30/18 17:35 11/30/18 23:09 12/01/18 07:50 12/01/18 08:53 Bedside Glucose 139 175 143 Lab Scanned BLOOD TRANSFUSIO Report N Test 12/01/18 12:14 Bedside Glucose 114 Medications Medication Current Medications IV Flush (NS 3 ml) 3 ml PER PROTOCOL IV ; Start 11/16/18 at 19:30 Ondansetron HCl (Zofran Inj) 4 mg Q6H PRN IV NAUSEA/VOMITING; Start 11/16/18 at 19:30 Acetaminophen (Tylenol Tab) 650 mg Q6H PRN PO .PAIN 1-3 OR TEMP; Start 11/16/18 at 19:30 Acetaminophen/ Hydrocodone Bitart ([place] (5/325)) 1 tab Q6H PRN PO .MOD PAIN 4- 6 Last administered on 11/30/18 00:44; Admin Dose 1 TAB; Start 11/16/18 at 19:30 Docusate Sodium (Colace) 100 mg Q12H PRN PO .CONSTIPATION; Start 11/16/18 at 19:30 Zolpidem Tartrate (Ambien) 5 mg QHS PRN PO .INSOMNIA Last administered on 11/22/18 23:20; Admin Dose 5 MG; Start 11/16/18 at 19:30 Clotrimazole (Lotrimin Cr) 1 applic BID TOP Last administered on 12/01/18 08:11; Admin Dose 1 APPLIC; Start 11/16/18 at 21:00 Fluticasone/ Vilanterol (Breo Ellipta 100-25 Mcg Inh) 1 inh DAILY INH Last administered on 12/01/18 08:11; Admin Dose 1 INH; Start 11/17/18 at 12:00 Albuterol/ Ipratropium (Duoneb) 3 ml Q4H RESP THERAPY HHN Last administered on 12/01/18 09:26; Admin Dose 3 ML; Start 11/18/18 at 13:00 Metoprolol Tartrate (Lopressor) 5 mg Q4H PRN IV HR>110 Hold SBP<100; Start 11/23/18 at 13:00 Heparin Sodium (Porcine) 250 ml @ 0 mls/hr PER PROTOCOL IV Last administered on 11/28/18 12:52; Admin Dose 7 MLS/HR; Start 11/24/18 at 10:04; Status Hold IV Flush (NS 10 ml) 10 ml PRN PRN IV IV PROTOCOL; Start 11/24/18 at 16:00 Miscellaneous Information 1 ea NOTE XX Last administered on 11/29/18 12:55; Admin Dose 1 EA; Start 11/24/18 at 20:30 Glucose (Glutose) 15 gm Q15M PRN PO DECREASED GLUCOSE; Start 11/24/18 at 20:30 Glucose (Glutose) 22.5 gm Q15M PRN PO DECREASED GLUCOSE; Start 11/24/18 at 20:30 Dextrose (D50w Syringe) 25 ml Q15M PRN IV DECREASED GLUCOSE Last administered on 11/26/18at 01:40; Admin Dose 25 ML; Start 11/24/18 at 20:30 Dextrose (D50w Syringe) 50 ml Q15M PRN IV DECREASED GLUCOSE Last administered on 11/29/18at 06:01; Admin Dose 50 ML; Start 11/24/18 at 20:30 Glucagon (Glucagen) 1 mg Q15M PRN IM DECREASED GLUCOSE; Start 11/24/18 at 20:30 Glucose (Glutose) 15 gm Q15M PRN BUCCAL DECREASED GLUCOSE; Start 11/24/18 at 20:30 Insulin Aspart (Novolog Insulin Pen) NOVOLOG *MILD* ALGORITHM WITH MEALS BEDTIME SC Last administered on 12/01/18 07:56; Admin Dose 1 UNIT; Start 11/28/18 at 11:30 Metoprolol Tartrate (Lopressor) 50 mg BID PO Last administered on 12/01/18 08:12; Admin Dose 50 MG; Start 11/28/18 at 21:00 Aspirin (Aspirin) 81 mg DAILY PO Last administered on 12/01/18 08:12; Admin Dose 81 MG; Start 11/29/18 at 09:00 Furosemide (Lasix) 40 mg BID DIURETICS IV Last administered on 12/01/18 07:58; Admin Dose 40 MG; Start 11/30/18 at 18:00 ROCHELLE STERLING NP Dec 01, 2018 13:28
--- NOTE | 2018-12-01 13:53 | PN ---
Date/Time of Note Date/Time of Note DATE: 12/01/18 TIME: 13:49 Assessment/Plan VTE Prophylaxis Risk score (from [facility])>0 risk: 10 Pharmacological prophylaxis: NA/contraindicated Pharm contraindication: renal impairment Assessment/Plan Hospital Course 83 yo female with , diastolic CHF with acute respiratory failure and volume overload from CHF and BRIE. She was transferred to ICU and was at risk for intubation. HD was initiated and patient has improved markedly. Respiratory status stable. Remains a bit hypervolemic. Holding HD now. Patient's family reversed their decision for palliative care. Continue to want aggressive care now but remains DNR Hypoglycemia event: - Stopped lantus, monitor sugars, continue sliding scale Acute respiratory failure 2/2 volume overload and COPD - patient's status has improved, now stable on NC - Continue O2 by NC -Chest x-ray from today is stable BRIE: - Kidneys recovering with good urine output - Consider diuretics per renal - Holding off on HD A Fib: - Hold heparin given hematuria - Digoxin given Cirrhosis Septic encephalopathy, improving Sepsis -Status post Abx at this point, no clear source Debility secondary to deconditioning on comorbidities -Continue PT, usp placement if patient and family agree DNR DC planning: Patient is unable to ambulate and require short-term usp placement but is refusing usp, consider home with home health in the coming days, monitor renal function Result Diagram: 11/30/18 1023 11/30/18 0518 Results 24hrs Laboratory Tests Test 11/30/18 17:35 11/30/18 23:09 12/01/18 07:50 12/01/18 08:53 Bedside Glucose 139 175 143 Lab Scanned BLOOD TRANSFUSIO Report N Test 12/01/18 12:14 Bedside Glucose 114 Subjective 24 Hr Interval Summary Respiratory: shortness of breath Exam/Review of Systems Exam Vitals Vital Signs Date Temp Pulse Resp B/P (MAP) Pulse Ox O2 O2 Flow FiO2 Time Delivery Rate 12/01/18 82 12:00 12/01/18 98.3 20 110/54 97 11:20 (72) 12/01/18 Nasal 3.0 09:26 Cannula 11/28/18 28 17:06 Intake and Output 11/30/18 11/30/18 12/01/18 1515:00 23:00 07:00 IntakeIntake Total 800 ml OutputOutput Total 2000 ml 1800 ml BalanceBalance -2000 ml -1000 ml Constitutional: alert Respiratory: wheezing Cardiovascular: regular rate and rhythm Gastrointestinal: soft; No distended Musculoskeletal: nl extremities to inspection Results Results 24hrs Laboratory Tests Test 11/30/18 17:35 11/30/18 23:09 12/01/18 07:50 12/01/18 08:53 Bedside Glucose 139 175 143 Lab Scanned BLOOD TRANSFUSIO Report N Test 12/01/18 12:14 Bedside Glucose 114 Medications Medication Current Medications IV Flush (NS 3 ml) 3 ml PER PROTOCOL IV ; Start 11/16/18 at 19:30 Ondansetron HCl (Zofran Inj) 4 mg Q6H PRN IV NAUSEA/VOMITING; Start 11/16/18 at 19:30 Acetaminophen (Tylenol Tab) 650 mg Q6H PRN PO .PAIN 1-3 OR TEMP; Start 11/16/18 at 19:30 Acetaminophen/ Hydrocodone Bitart ([place] (5/325)) 1 tab Q6H PRN PO .MOD PAIN 4- 6 Last administered on 11/30/18at 00:44; Admin Dose 1 TAB; Start 11/16/18 at 19:30 Docusate Sodium (Colace) 100 mg Q12H PRN PO .CONSTIPATION; Start 11/16/18 at 19:30 Zolpidem Tartrate (Ambien) 5 mg QHS PRN PO .INSOMNIA Last administered on 11/22/18 23:20; Admin Dose 5 MG; Start 11/16/18 at 19:30 Clotrimazole (Lotrimin Cr) 1 applic BID TOP Last administered on 12/01/18 08:11; Admin Dose 1 APPLIC; Start 11/16/18 at 21:00 Fluticasone/ Vilanterol (Breo Ellipta 100-25 Mcg Inh) 1 inh DAILY INH Last administered on 12/01/18 08:11; Admin Dose 1 INH; Start 11/17/18 at 12:00 Albuterol/ Ipratropium (Duoneb) 3 ml Q4H RESP THERAPY HHN Last administered on 12/01/18 09:26; Admin Dose 3 ML; Start 11/18/18 at 13:00 Metoprolol Tartrate (Lopressor) 5 mg Q4H PRN IV HR>110 Hold SBP<100; Start 11/23/18 at 13:00 Heparin Sodium (Porcine) 250 ml @ 0 mls/hr PER PROTOCOL IV Last administered on 11/28/18 12:52; Admin Dose 7 MLS/HR; Start 11/24/18 at 10:04; Status Hold IV Flush (NS 10 ml) 10 ml PRN PRN IV IV PROTOCOL; Start 11/24/18 at 16:00 Miscellaneous Information 1 ea NOTE XX Last administered on 11/29/18at 12:55; Admin Dose 1 EA; Start 11/24/18 at 20:30 Glucose (Glutose) 15 gm Q15M PRN PO DECREASED GLUCOSE; Start 11/24/18 at 20:30 Glucose (Glutose) 22.5 gm Q15M PRN PO DECREASED GLUCOSE; Start 11/24/18 at 20:30 Dextrose (D50w Syringe) 25 ml Q15M PRN IV DECREASED GLUCOSE Last administered on 11/26/18 01:40; Admin Dose 25 ML; Start 11/24/18 at 20:30 Dextrose (D50w Syringe) 50 ml Q15M PRN IV DECREASED GLUCOSE Last administered on 11/29/18 06:01; Admin Dose 50 ML; Start 11/24/18 at 20:30 Glucagon (Glucagen) 1 mg Q15M PRN IM DECREASED GLUCOSE; Start 11/24/18 at 20:30 Glucose (Glutose) 15 gm Q15M PRN BUCCAL DECREASED GLUCOSE; Start 11/24/18 at 20:30 Insulin Aspart (Novolog Insulin Pen) NOVOLOG *MILD* ALGORITHM WITH MEALS BEDTIME SC Last administered on 12/01/18 07:56; Admin Dose 1 UNIT; Start 11/28/18 at 11:30 Metoprolol Tartrate (Lopressor) 50 mg BID PO Last administered on 12/01/18 08:12; Admin Dose 50 MG; Start 11/28/18 at 21:00 Aspirin (Aspirin) 81 mg DAILY PO Last administered on 12/01/18 08:12; Admin Dose 81 MG; Start 11/29/18 at 09:00 Furosemide (Lasix) 40 mg BID DIURETICS IV Last administered on 12/01/18 07:58; Admin Dose 40 MG; Start 11/30/18 at 18:00 JABIER SEBASTIAN Dec 01, 2018 13:53
[2018-12-02] VITALS (11 sets, daily range): BP systolic 98–131; BP diastolic 54–75; PULSE 70–95; RESP 18–22
[2018-12-02] MEDS: ALBUTEROL/IPRATROPIUM (NEB) 3 ML AMP HHN SCH ×6 (01:01→21:24)
[2018-12-02] MEDS: FUROSEMIDE 40 MG INJ IV SCH ×2 (05:31→17:41)
[2018-12-02] MEDS: ASPIRIN 81 MG TAB PO SCH (08:18)
[2018-12-02] MEDS: CLOTRIMAZOLE 1% 30 GM CR TOP SCH ×2 (08:18→21:15)
[2018-12-02] MEDS: FLUTICASONE/VILANTEROL 100-25 INH SCH (08:18)
[2018-12-02] MEDS: INSULIN ASPART [NOVOLOG] 3 ML PEN SC SCH ×4 (08:41→21:00)
[2018-12-02] MEDS: METOPROLOL 50 MG TAB PO SCH ×2 (09:00→21:14)
--- NOTE | 2018-12-02 09:14 | PN ---
DATE: 12/02/2018 SUBJECTIVE: The patient is stable. The patient has excellent urinary output. No other events noted . OBJECTIVE: VITAL SIGNS: Blood pressure is 119/59, respirations 22, pulse 71, temperature 98.6. I's and O's rev iewed. HEENT: Head is normocephalic. NECK: Supple. HEART: Regular rate. LUNGS: Show diminished breath sounds at the base. ABDOMEN: Soft, nontender to palpation without rebound or guarding. EXTREMITIES: Negative for clubbing, cyanosis. Positive edema. DERMATOLOGIC: No rashes. MUSCULOSKELETAL: No joint effusion. NEUROLOGIC: No change in exam. MEDICATIONS: Reviewed. LABORATORY DATA: Currently pending. ASSESSMENT AND PLAN: 1. Nonoliguric acute kidney injury on top of chronic kidney disease with previous baseline creatinin e around 1.5 mg/dL. Etiology of acute kidney injury is secondary to hemodynamics, acute tubular necr osis. The patient was initiated on dialysis. The patient has shown signs of renal recovery with inc reased urinary output. Plan is to hold hemodialysis at this time. We will monitor renal function an d urinary output closely. 2. Volume overload, improving. Continue diuretic regimen. 3. Anemia. Continue to monitor hemoglobin and hematocrit levels. 4. Mineral bone disorder, monitor calcium and phosphorus levels. 5. Acute respiratory failure secondary to congestive heart failure, reactive airway disease. The pa tient is currently stable. Continue supplement oxygen, nebulizers. Continue diuretic therapy. 6. Atrial fibrillation. Continue current treatment plan. 7. Diabetes. Continue current insulin regimen. 8. Acute encephalopathy, etiology is toxic metabolic. 9. Aortic stenosis. Continue to monitor. Dictated By: JOCELINE MCCALLUM DO NR/NTS Conf#: [id number] DID#: [id number] CC: JABIER SEBASTIAN MD; JOCELINE MCCALLUM DO;*EndCC*
--- NOTE | 2018-12-02 10:57 | CONS ---
Assessment/Plan Assessment/Plan Assessment/Plan (Daily) Assessment recommendations; 1. Patient admitted with CHF exacerbation with development of acute renal failure now requiring hemodialysis with marked overall clinical improvement. Chest x-ray from yesterday showing mild persistent pulmonary edema with cardiomegaly. 2. Chronic atrial fibrillation. 3. History of multiple admissions to hospital for various reasons. 4. History of hypertension. 5. COPD. 6. Anemia. 7. Status post treatment for sacral ulcer. Patient off systemic antibiotics no w. Continue current supportive care. Hemodialysis per reimbursement spec. Consider discharge to group home. Consultation Date/Type/Reason Admit Date/Time Nov 16, 2018 at 17:17 Initial Consult Date Type of Consult Pulmonary/critical care Patient's condition has taken a turn for the worse with altered mental status. Patient now has been transferred to ICU. Hemodialysis will be started shortly. Patient appears confused. But is hemodynamically stable. General exam; elderly woman, awake, agitated off and on. Requesting Provider: JABIER SEBASTIAN Date/Time of Note DATE: 12/02/18 TIME: 10:55 24 HR Interval Summary Free Text/Dictation Patient's condition is stable. Remains completely awake and alert. Denies any shortness of breath at rest. Complains of rare occasional coughing episodes. Denies any wheezing. General exam; elderly lady, awake alert, currently no distress. Exam/Review of Systems Exam Vitals Vital Signs Date Temp Pulse Resp B/P (MAP) Pulse Ox O2 O2 Flow FiO2 Time Delivery Rate 12/02/18 80 18 93 Nasal 2.0 09:20 Cannula 12/02/18 98.6 119/59 07:49 (79) 11/28/18 28 17:06 Exam H HEENT exam; supple neck, positive JVD. No lymphadenopathy. Midline trachea. No thyromegaly. Patient is edentulous and has dentures. Chest exam; diminished breath sounds bilaterally. S1-S2 audible, no murmurs. Irregular rhythm. Abdomen exam; soft, nontender. No organomegaly. Bowel sounds audible. Extremity exam; trace peripheral edema clubbing. SYSTEM SUPPORT TECHNICIAN exam; no focal deficit. Results Result Diagram: 11/30/18 1023 12/02/18 0905 Results 24hrs Laboratory Tests Test 12/01/18 12:14 12/01/18 17:18 12/01/18 20:44 12/02/18 08:17 Bedside Glucose 114 176 128 161 Test 12/02/18 09:05 Sodium Level 140 Potassium Level 4.5 Chloride Level 103 Carbon Dioxide Level 29 Anion Gap 8 Blood Urea Nitrogen 55 H Creatinine 2.06 H Est Glomerular Filtrat Rate mL/min Glucose Level 148 Calcium Level 8.5 Medications Medication Current Medications IV Flush (NS 3 ml) 3 ml PER PROTOCOL IV ; Start 11/16/18 at 19:30 Ondansetron HCl (Zofran Inj) 4 mg Q6H PRN IV NAUSEA/VOMITING; Start 11/16/18 at 19:30 Acetaminophen (Tylenol Tab) 650 mg Q6H PRN PO .PAIN 1-3 OR TEMP; Start 11/16/18 at 19:30 Acetaminophen/ Hydrocodone Bitart ([place] (5/325)) 1 tab Q6H PRN PO .MOD PAIN 4- 6 Last administered on 11/30/18 00:44; Admin Dose 1 TAB; Start 11/16/18 at 19:30 Docusate Sodium (Colace) 100 mg Q12H PRN PO .CONSTIPATION; Start 11/16/18 at 19:30 Zolpidem Tartrate (Ambien) 5 mg QHS PRN PO .INSOMNIA Last administered on 11/22/18 23:20; Admin Dose 5 MG; Start 11/16/18 at 19:30 Clotrimazole (Lotrimin Cr) 1 applic BID TOP Last administered on 12/02/18 08 :18; Admin Dose 1 APPLIC; Start 11/16/18 at 21:00 Fluticasone/ Vilanterol (Breo Ellipta 100-25 Mcg Inh) 1 inh DAILY INH Last administered on 12/02/18 08:18; Admin Dose 1 INH; Start 11/17/18 at 12:00 Albuterol/ Ipratropium (Duoneb) 3 ml Q4H RESP THERAPY HHN Last administered on 12/02/18 09:20; Admin Dose 3 ML; Start 11/18/18 at 13:00 Metoprolol Tartrate (Lopressor) 5 mg Q4H PRN IV HR>110 Hold SBP<100; Start 11/23/18 at 13:00 Heparin Sodium (Porcine) 250 ml @ 0 mls/hr PER PROTOCOL IV Last administered on 11/28/18 12:52; Admin Dose 7 MLS/HR; Start 11/24/18 at 10:04; Status Hold IV Flush (NS 10 ml) 10 ml PRN PRN IV IV PROTOCOL; Start 11/24/18 at 16:00 Miscellaneous Information 1 ea NOTE XX Last administered on 11/29/18at 12:55; Admin Dose 1 EA; Start 11/24/18 at 20:30 Glucose (Glutose) 15 gm Q15M PRN PO DECREASED GLUCOSE; Start 11/24/18 at 20:30 Glucose (Glutose) 22.5 gm Q15M PRN PO DECREASED GLUCOSE; Start 11/24/18 at 20:30 Dextrose (D50w Syringe) 25 ml Q15M PRN IV DECREASED GLUCOSE Last administered on 11/26/18at 01:40; Admin Dose 25 ML; Start 11/24/18 at 20:30 Dextrose (D50w Syringe) 50 ml Q15M PRN IV DECREASED GLUCOSE Last administered on 11/29/18at 06:01; Admin Dose 50 ML; Start 11/24/18 at 20:30 Glucagon (Glucagen) 1 mg Q15M PRN IM DECREASED GLUCOSE; Start 11/24/18 at 20:30 Glucose (Glutose) 15 gm Q15M PRN BUCCAL DECREASED GLUCOSE; Start 11/24/18 at 20:30 Insulin Aspart (Novolog Insulin Pen) NOVOLOG *MILD* ALGORITHM WITH MEALS BEDTIME SC Last administered on 12/02/18 08:41; Admin Dose 1 UNIT; Start 11/28/18 at 11:30 Metoprolol Tartrate (Lopressor) 50 mg BID PO Last administered on 12/02/18at 09:00; Admin Dose 50 MG; Start 11/28/18 at 21:00 Aspirin (Aspirin) 81 mg DAILY PO Last administered on 12/02/18 08:18; Admin Dose 81 MG; Start 11/29/18 at 09:00 Furosemide (Lasix) 40 mg BID DIURETICS IV Last administered on 12/02/18 05:31; Admin Dose 40 MG; Start 11/30/18 at 18:00 ZACH HEALY Dec 02, 2018 10:57
--- NOTE | 2018-12-02 12:12 | CONS ---
Assessment/Plan Assessment/Plan Assessment/Plan (Daily) congestive heart failure volume overload paroxysmal atrial fibrillation morbid obesity Consultation Date/Type/Reason Admit Date/Time Nov 16, 2018 at 17:17 Initial Consult Date Requesting Provider: JABIER SEBASTIAN Date/Time of Note DATE: 12/02/18 TIME: 12:11 24 HR Interval Summary Free Text/Dictation Mrs. Deal is doing well since last time seen no overnight changes. Exam/Review of Systems Exam Vitals Vital Signs Date Temp Pulse Resp B/P (MAP) Pulse Ox O2 O2 Flow FiO2 Time Delivery Rate 12/02/18 97.5 71 22 99/54 (69) 96 Nasal 11:50 Cannula 12/02/18 2.0 09:20 11/28/18 28 17:06 Constitutional: alert, oriented, well developed Respiratory: other Cardiovascular: regular rate and rhythm, nl pulses; No bruits, No diastolic murmur, No edema, No gallop, No irregular rhythm, No jugular venous distention (JVD), No murmurs/extra sounds, No rub, No systolic murmur, No S3, No S4, No other Results Result Diagram: 11/30/18 1023 12/02/18 0905 Results 24hrs Laboratory Tests Test 12/01/18 12:14 12/01/18 17:18 12/01/18 20:44 12/02/18 08:17 Bedside Glucose 114 176 128 161 Test 12/02/18 09:05 Sodium Level 140 Potassium Level 4.5 Chloride Level 103 Carbon Dioxide Level 29 Anion Gap 8 Blood Urea Nitrogen 55 H Creatinine 2.06 H Est Glomerular Filtrat Rate mL/min Glucose Level 148 Calcium Level 8.5 Medications Medication Current Medications IV Flush (NS 3 ml) 3 ml PER PROTOCOL IV ; Start 11/16/18 at 19:30 Ondansetron HCl (Zofran Inj) 4 mg Q6H PRN IV NAUSEA/VOMITING; Start 11/16/18 at 19:30 Acetaminophen (Tylenol Tab) 650 mg Q6H PRN PO .PAIN 1-3 OR TEMP; Start 11/16/18 at 19:30 Acetaminophen/ Hydrocodone Bitart ([place] (5/325)) 1 tab Q6H PRN PO .MOD PAIN 4- 6 Last administered on 11/30/18at 00:44; Admin Dose 1 TAB; Start 11/16/18 at 19:30 Docusate Sodium (Colace) 100 mg Q12H PRN PO .CONSTIPATION; Start 11/16/18 at 19:30 Zolpidem Tartrate (Ambien) 5 mg QHS PRN PO .INSOMNIA Last administered on 11/22/18 23:20; Admin Dose 5 MG; Start 11/16/18 at 19:30 Clotrimazole (Lotrimin Cr) 1 applic BID TOP Last administered on 12/02/18 08:18; Admin Dose 1 APPLIC; Start 11/16/18 at 21:00 Fluticasone/ Vilanterol (Breo Ellipta 100-25 Mcg Inh) 1 inh DAILY INH Last administered on 12/02/18 08:18; Admin Dose 1 INH; Start 11/17/18 at 12:00 Albuterol/ Ipratropium (Duoneb) 3 ml Q4H RESP THERAPY HHN Last administered on 12/02/18 09:20; Admin Dose 3 ML; Start 11/18/18 at 13:00 Metoprolol Tartrate (Lopressor) 5 mg Q4H PRN IV HR>110 Hold SBP<100; Start 11/23/18 at 13:00 Heparin Sodium (Porcine) 250 ml @ 0 mls/hr PER PROTOCOL IV Last administered on 11/28/18 12:52; Admin Dose 7 MLS/HR; Start 11/24/18 at 10:04; Status Hold IV Flush (NS 10 ml) 10 ml PRN PRN IV IV PROTOCOL; Start 11/24/18 at 16:00 Miscellaneous Information 1 ea NOTE XX Last administered on 11/29/18 12:55; Admin Dose 1 EA; Start 11/24/18 at 20:30 Glucose (Glutose) 15 gm Q15M PRN PO DECREASED GLUCOSE; Start 11/24/18 at 20:30 Glucose (Glutose) 22.5 gm Q15M PRN PO DECREASED GLUCOSE; Start 11/24/18 at 20:30 Dextrose (D50w Syringe) 25 ml Q15M PRN IV DECREASED GLUCOSE Last administered on 11/26/18 01:40; Admin Dose 25 ML; Start 11/24/18 at 20:30 Dextrose (D50w Syringe) 50 ml Q15M PRN IV DECREASED GLUCOSE Last administered on 3/10/19at 06:01; Admin Dose 50 ML; Start 11/24/18 at 20:30 Glucagon (Glucagen) 1 mg Q15M PRN IM DECREASED GLUCOSE; Start 11/24/18 at 20:30 Glucose (Glutose) 15 gm Q15M PRN BUCCAL DECREASED GLUCOSE; Start 11/24/18 at 20:30 Insulin Aspart (Novolog Insulin Pen) NOVOLOG *MILD* ALGORITHM WITH MEALS BEDT YENNIFER SC Last administered on 12/02/18 08:41; Admin Dose 1 UNIT; Start 11/28/18 at 11:30 Metoprolol Tartrate (Lopressor) 50 mg BID PO Last administered on 12/02/18 09:00; Admin Dose 50 MG; Start 11/28/18 at 21:00 Aspirin (Aspirin) 81 mg DAILY PO Last administered on 12/02/18 08:18; Admin Dose 81 MG; Start 11/29/18 at 09:00 Furosemide (Lasix) 40 mg BID DIURETICS IV Last administered on 12/02/18 05:31; Admin Dose 40 MG; Start 11/30/18 at 18:00 MINI PAEZ Dec 02, 2018 12:12
--- NOTE | 2018-12-02 12:22 | PN ---
Date/Time of Note Date/Time of Note DATE: 12/02/18 TIME: 12:16 Assessment/Plan VTE Prophylaxis Risk score (from Ns)>0 risk: 8 SCD applied (from [facility] [place]): Yes Pharmacological prophylaxis: NA/contraindicated Pharm contraindication: renal impairment Assessment/Plan Hospital Course 83 yo female with , diastolic CHF with acute respiratory failure and volume overload from CHF and BRIE. She was transferred to ICU and was at risk for intubation. HD was initiated and patient has improved markedly. Respiratory status stable. Remains a bit hypervolemic. Holding HD now. Patient's family reversed their decision for palliative care. 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 Debility secondary to deconditioning on comorbidities -Continue PT, snf placement if patient and family agree Hypoglycemia event: Now stable - Stopped lantus, monitor sugars, continue sliding scale DNR DC planning: Patient is unable to ambulate and requires short-term snf placement but family has been refusing snf, will discuss once again with family, continue to monitor renal function for the next 1-2 days Result Diagram: 11/30/18 1023 12/02/18 0905 Results 24hrs Laboratory Tests Test 12/01/18 17:18 12/01/18 20:44 12/02/18 08:17 12/02/18 09:05 Bedside Glucose 176 128 161 Sodium Level 140 Potassium Level 4.5 Chloride Level 103 Carbon Dioxide Level 29 Anion Gap 8 Blood Urea Nitrogen 55 H Creatinine 2.06 H Est Glomerular Filtrat Rate mL/min Glucose Level 148 Calcium Level 8.5 Subjective 24 Hr Interval Summary Respiratory: shortness of breath, wheezing Exam/Review of Systems Exam Vitals Vital Signs Date Temp Pulse Resp B/P (MAP) Pulse Ox O2 O2 Flow FiO2 Time Delivery Rate 12/02/18 97.5 71 22 99/54 (69) 96 Nasal 11:50 Cannula 3/13/19 2.0 09:20 11/28/18 28 17:06 Constitutional: alert Respiratory: wheezing Cardiovascular: regular rate and rhythm Gastrointestinal: soft; No distended Musculoskeletal: nl extremities to inspection Results Results 24hrs Laboratory Tests Test 12/01/18 17:18 12/01/18 20:44 12/02/18 08:17 12/02/18 09:05 Bedside Glucose 176 128 161 Sodium Level 140 Potassium Level 4.5 Chloride Level 103 Carbon Dioxide Level 29 Anion Gap 8 Blood Urea Nitrogen 55 H Creatinine 2.06 H Est Glomerular Filtrat Rate mL/min Glucose Level 148 Calcium Level 8.5 Medications Medication Current Medications IV Flush (NS 3 ml) 3 ml PER PROTOCOL IV ; Start 11/16/18 at 19:30 Ondansetron HCl (Zofran Inj) 4 mg Q6H PRN IV NAUSEA/VOMITING; Start 11/16/18 at 19:30 Acetaminophen (Tylenol Tab) 650 mg Q6H PRN PO .PAIN 1-3 OR TEMP; Start 11/16/18 at 19:30 Acetaminophen/ Hydrocodone Bitart ([place] (5/325)) 1 tab Q6H PRN PO .MOD PAIN 4- 6 Last administered on 11/30/18at 00:44; Admin Dose 1 TAB; Start 11/16/18 at 19:30 Docusate Sodium (Colace) 100 mg Q12H PRN PO .CONSTIPATION; Start 11/16/18 at 19:30 Zolpidem Tartrate (Ambien) 5 mg QHS PRN PO .INSOMNIA Last administered on 11/22/18 23:20; Admin Dose 5 MG; Start 11/16/18 at 19:30 Clotrimazole (Lotrimin Cr) 1 applic BID TOP Last administered on 12/02/18 08:18; Admin Dose 1 APPLIC; Start 11/16/18 at 21:00 Fluticasone/ Vilanterol (Breo Ellipta 100-25 Mcg Inh) 1 inh DAILY INH Last administered on 12/02/18 08:18; Admin Dose 1 INH; Start 11/17/18 at 12:00 Albuterol/ Ipratropium (Duoneb) 3 ml Q4H RESP THERAPY HHN Last administered on 12/02/18 09:20; Admin Dose 3 ML; Start 11/18/18 at 13:00 Metoprolol Tartrate (Lopressor) 5 mg Q4H PRN IV HR>110 Hold SBP<100; Start 11/23/18 at 13:00 Heparin Sodium (Porcine) 250 ml @ 0 mls/hr PER PROTOCOL IV Last administered on 11/28/18at 12:52; Admin Dose 7 MLS/HR; Start 11/24/18 at 10:04; Status Hold IV Flush (NS 10 ml) 10 ml PRN PRN IV IV PROTOCOL; Start 11/24/18 at 16:00 Miscellaneous Information 1 ea NOTE XX Last administered on 11/29/18at 12:55; Admin Dose 1 EA; Start 11/24/18 at 20:30 Glucose (Glutose) 15 gm Q15M PRN PO DECREASED GLUCOSE; Start 11/24/18 at 20:30 Glucose (Glutose) 22.5 gm Q15M PRN PO DECREASED GLUCOSE; Start 11/24/18 at 20:30 Dextrose (D50w Syringe) 25 ml Q15M PRN IV DECREASED GLUCOSE Last administered on 11/26/18at 01:40; Admin Dose 25 ML; Start 11/24/18 at 20:30 Dextrose (D50w Syringe) 50 ml Q15M PRN IV DECREASED GLUCOSE Last administered on 11/29/18 06:01; Admin Dose 50 ML; Start 11/24/18 at 20:30 Glucagon (Glucagen) 1 mg Q15M PRN IM DECREASED GLUCOSE; Start 11/24/18 at 20:30 Glucose (Glutose) 15 gm Q15M PRN BUCCAL DECREASED GLUCOSE; Start 11/24/18 at 20:30 Insulin Aspart (Novolog Insulin Pen) NOVOLOG *MILD* ALGORITHM WITH MEALS BEDTIME SC Last administered on 12/02/18at 08:41; Admin Dose 1 UNIT; Start 11/28/18 at 11:30 Metoprolol Tartrate (Lopressor) 50 mg BID PO Last administered on 12/02/18 09:00; Admin Dose 50 MG; Start 11/28/18 at 21:00 Aspirin (Aspirin) 81 mg DAILY PO Last administered on 12/02/18 08:18; Admin Dose 81 MG; Start 11/29/18 at 09:00 Furosemide (Lasix) 40 mg BID DIURETICS IV Last administered on 12/02/18at 05:31; Admin Dose 40 MG; Start 11/30/18 at 18:00 JABIER SEBASTIAN Dec 02, 2018 12:22
--- NOTE | 2018-12-02 12:29 | CONS ---
Assessment/Plan Assessment/Plan Hospital Course (Demo Recall) IMP: 1.AF with mild RVR-rate controlled on current dose of BB 2.Renal failure 3.hyperkalemia 4.Bradycardia 5.CHF-diastolic acute on chronic EF 50% by echo this admit 6.HTN 7.-mod to severe by echo 08/09 8. Hematuria Recc: -ICU -Now DNI -IVP PRN BB -Continue current PO BB dose -Continue asa as tolerated for prevention of thromboembolic complications as not able to remain on heparin due to hematuria and worsening anemia with possible need to hold given worsening anemia -Still holding heparin given hematuria which has resolved but now worsening anemia -Continue abx's and f/u cx data -Follow MS -HD now held and would follow volume status closely on lasix IV BID Consultation Date/Type/Reason Admit Date/Time Nov 16, 2018 at 17:17 Initial Consult Date 11/20/18 Type of Consult Cardiology Reason for Consultation AF Requesting Provider: JABIER SEBASTIAN Date/Time of Note DATE: 12/02/18 TIME: 12:25 Exam/Review of Systems Vital Signs Vitals Vital Signs Date Temp Pulse Resp B/P (MAP) Pulse Ox O2 O2 Flow FiO2 Time Delivery Rate 12/02/18 77 12:01 12/02/18 97.5 22 99/54 (69) 96 Nasal 11:50 Cannula 12/02/18 2.0 09:20 11/28/18 28 17:06 Exam Exam Review of Systems: CONSTITUTIONAL: No fevers, chills. PULMONARY: mild sob CARDIOVASCULAR: No chest pain/palpitations GASTROINTESTINAL: No nausea/vomiting. GENITOURINARY: No hematuria/dysuria. MUSCULOSKELETAL: No myagias/arthalgias. PSYCHIATRIC: The patient denies depression. NEUROLOGIC: No weakness Constitutional: alert Psych: no complaints Head: normocephalic ENMT: mucosa pink and moist Neck: supple, jvd (9 cm water) Respiratory: diminished breath sounds (at bases/B) Cardiovascular: regular rate and rhythm Gastrointestinal: soft Musculoskeletal: muscle weakness (mild generalized) Extremities: edema (none) Neurological: other (No focal deficits) Labs Result Diagram: 11/30/18 1023 12/02/18 0905 Results 24hrs Laboratory Tests Test 12/01/18 17:18 12/01/18 20:44 12/02/18 08:17 12/02/18 09:05 Bedside Glucose 176 128 161 Sodium Level 140 Potassium Level 4.5 Chloride Level 103 Carbon Dioxide Level 29 Anion Gap 8 Blood Urea Nitrogen 55 H Creatinine 2.06 H Est Glomerular Filtrat Rate mL/min Glucose Level 148 Calcium Level 8.5 Medications Medications Current Medications IV Flush (NS 3 ml) 3 ml PER PROTOCOL IV ; Start 11/16/18 at 19:30 Ondansetron HCl (Zofran Inj) 4 mg Q6H PRN IV NAUSEA/VOMITING; Start 11/16/18 at 19:30 Acetaminophen (Tylenol Tab) 650 mg Q6H PRN PO .PAIN 1-3 OR TEMP; Start 11/16/18 at 19:30 Acetaminophen/ Hydrocodone Bitart ([place] (5/325)) 1 tab Q6H PRN PO .MOD PAIN 4- 6 Last administered on 11/30/18 00:44; Admin Dose 1 TAB; Start 11/16/18 at 19:30 Docusate Sodium (Colace) 100 mg Q12H PRN PO .CONSTIPATION; Start 11/16/18 at 19:30 Zolpidem Tartrate (Ambien) 5 mg QHS PRN PO .INSOMNIA Last administered on 11/22/18 23:20; Admin Dose 5 MG; Start 11/16/18 at 19:30 Clotrimazole (Lotrimin Cr) 1 applic BID TOP Last administered on 12/02/18 08:18; Admin Dose 1 APPLIC; Start 11/16/18 at 21:00 Fluticasone/ Vilanterol (Breo Ellipta 100-25 Mcg Inh) 1 inh DAILY INH Last administered on 12/02/18 08:18; Admin Dose 1 INH; Start 11/17/18 at 12:00 Albuterol/ Ipratropium (Duoneb) 3 ml Q4H RESP THERAPY HHN Last administered on 12/02/18 09:20; Admin Dose 3 ML; Start 11/18/18 at 13:00 Metoprolol Tartrate (Lopressor) 5 mg Q4H PRN IV HR>110 Hold SBP<100; Start 11/23/18 at 13:00 Heparin Sodium (Porcine) 250 ml @ 0 mls/hr PER PROTOCOL IV Last administered on 11/28/18 12:52; Admin Dose 7 MLS/HR; Start 11/24/18 at 10:04; Status Hold IV Flush (NS 10 ml) 10 ml PRN PRN IV IV PROTOCOL; Start 11/24/18 at 16:00 Miscellaneous Information 1 ea NOTE XX Last administered on 11/29/18at 12:55; Admin Dose 1 EA; Start 11/24/18 at 20:30 Glucose (Glutose) 15 gm Q15M PRN PO DECREASED GLUCOSE; Start 11/24/18 at 20:30 Glucose (Glutose) 22.5 gm Q15M PRN PO DECREASED GLUCOSE; Start 11/24/18 at 20:30 Dextrose (D50w Syringe) 25 ml Q15M PRN IV DECREASED GLUCOSE Last administered on 11/26/18at 01:40; Admin Dose 25 ML; Start 11/24/18 at 20:30 Dextrose (D50w Syringe) 50 ml Q15M PRN IV DECREASED GLUCOSE Last administered on 11/29/18at 06:01; Admin Dose 50 ML; Start 11/24/18 at 20:30 Glucagon (Glucagen) 1 mg Q15M PRN IM DECREASED GLUCOSE; Start 11/24/18 at 20:30 Glucose (Glutose) 15 gm Q15M PRN BUCCAL DECREASED GLUCOSE; Start 11/24/18 at 20:30 Insulin Aspart (Novolog Insulin Pen) NOVOLOG *MILD* ALGORITHM WITH MEALS BEDTIME SC Last administered on 12/02/18 12:16; Admin Dose 1 UNIT; Start 11/28/18 at 11:30 Metoprolol Tartrate (Lopressor) 50 mg BID PO Last administered on 12/02/18 09:00; Admin Dose 50 MG; Start 11/28/18 at 21:00 Aspirin (Aspirin) 81 mg DAILY PO Last administered on 12/02/18 08:18; Admin Dose 81 MG; Start 11/29/18 at 09:00 Furosemide (Lasix) 40 mg BID DIURETICS IV Last administered on 12/02/18 05:31; Admin Dose 40 MG; Start 11/30/18 at 18:00 GHASSAN SHERMAN Dec 02, 2018 12:29
--- NOTE | 2018-12-02 13:56 | CONS ---
Assessment/Plan Assessment/Plan Hospital Course (Demo Recall) Patient is alert feels good denies pain no fevers overnight comfortable on nasal cannula Antimicrobial: none Indwelling: Right femoral Noel, Soto catheter. PICC Physical examination: Well-developed morbidly obese -[place] woman who in no distress. Head atraumatic normocephalic sclera nonicteric. Neck is supple. Chest rise symmetrical breath sounds diminished to bases. Heart: S1- S2.. Abdomen obese soft, bowel sounds present. Extremities: Bilateral lower extremities edema erythema and multiple wounds Assessment: 1. Acute hypoxemic respiratory failure secondary to pulmonary edema and CHF exacerbation 2. S/p sepsis, present on admission 3. 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 S/p Urinary tract infection 5. Staph bacteremia consistent with contaminant 6. Morbid obesity 7. Atrial fibrillation 8. Diabetes 9. Acute kidney failure==> HD on hold 7. Pancytopenia Plan: Patient remains stable, off antibiotics, continue present care Consultation Date/Type/Reason Admit Date/Time Nov 16, 2018 at 17:17 Initial Consult Date Type of Consult id Requesting Provider: JABIER SEBASTIAN Date/Time of Note DATE: 12/02/18 TIME: 13:55 Exam/Review of Systems Exam Vitals Vital Signs Date Temp Pulse Resp B/P (MAP) Pulse Ox O2 O2 Flow FiO2 Time Delivery Rate 12/02/18 77 12:01 12/02/18 97.5 22 99/54 (69) 96 Nasal 11:50 Cannula 12/02/18 2.0 09:20 11/28/18 28 17:06 Results Result Diagram: 11/30/18 1023 12/02/18 0905 Results 24hrs Laboratory Tests Test 12/01/18 17:18 12/01/18 20:44 12/02/18 08:17 12/02/18 09:05 Bedside Glucose 176 128 161 Sodium Level 140 Potassium Level 4.5 Chloride Level 103 Carbon Dioxide Level 29 Anion Gap 8 Blood Urea Nitrogen 55 H Creatinine 2.06 H Est Glomerular Filtrat Rate mL/min Glucose Level 148 Calcium Level 8.5 Test 12/02/18 12:12 Bedside Glucose 152 Medications Medication Current Medications IV Flush (NS 3 ml) 3 ml PER PROTOCOL IV ; Start 11/16/18 at 19:30 Ondansetron HCl (Zofran Inj) 4 mg Q6H PRN IV NAUSEA/VOMITING; Start 11/16/18 at 19:30 Acetaminophen (Tylenol Tab) 650 mg Q6H PRN PO .PAIN 1-3 OR TEMP; Start 11/16/18 at 19:30 Acetaminophen/ Hydrocodone Bitart ([place] (5/325)) 1 tab Q6H PRN PO .MOD PAIN 4- 6 Last administered on 11/30/18 00:44; Admin Dose 1 TAB; Start 11/16/18 at 19:30 Docusate Sodium (Colace) 100 mg Q12H PRN PO .CONSTIPATION; Start 11/16/18 at 19:30 Zolpidem Tartrate (Ambien) 5 mg QHS PRN PO .INSOMNIA Last administered on 11/22/18 23:20; Admin Dose 5 MG; Start 11/16/18 at 19:30 Clotrimazole (Lotrimin Cr) 1 applic BID TOP Last administered on 12/02/18 08:18; Admin Dose 1 APPLIC; Start 11/16/18 at 21:00 Fluticasone/ Vilanterol (Breo Ellipta 100-25 Mcg Inh) 1 inh DAILY INH Last administered on 12/02/18 08:18; Admin Dose 1 INH; Start 11/17/18 at 12:00 Albuterol/ Ipratropium (Duoneb) 3 ml Q4H RESP THERAPY HHN Last administered on 12/02/18 09:20; Admin Dose 3 ML; Start 11/18/18 at 13:00 Metoprolol Tartrate (Lopressor) 5 mg Q4H PRN IV HR>110 Hold SBP<100; Start 11/23/18 at 13:00 Heparin Sodium (Porcine) 250 ml @ 0 mls/hr PER PROTOCOL IV Last administered on 11/28/18 12:52; Admin Dose 7 MLS/HR; Start 11/24/18 at 10:04; Status Hold IV Flush (NS 10 ml) 10 ml PRN PRN IV IV PROTOCOL; Start 11/24/18 at 16:00 Miscellaneous Information 1 ea NOTE XX Last administered on 11/29/18 12:55; Admin Dose 1 EA; Start 11/24/18 at 20:30 Glucose (Glutose) 15 gm Q15M PRN PO DECREASED GLUCOSE; Start 11/24/18 at 20:30 Glucose (Glutose) 22.5 gm Q15M PRN PO DECREASED GLUCOSE; Start 11/24/18 at 20:30 Dextrose (D50w Syringe) 25 ml Q15M PRN IV DECREASED GLUCOSE Last administered on 11/26/18at 01:40; Admin Dose 25 ML; Start 11/24/18 at 20:30 Dextrose (D50w Syringe) 50 ml Q15M PRN IV DECREASED GLUCOSE Last administered on 11/29/18at 06:01; Admin Dose 50 ML; Start 11/24/18 at 20:30 Glucagon (Glucagen) 1 mg Q15M PRN IM DECREASED GLUCOSE; Start 11/24/18 at 20:30 Glucose (Glutose) 15 gm Q15M PRN BUCCAL DECREASED GLUCOSE; Start 11/24/18 at 20:30 Insulin Aspart (Novolog Insulin Pen) NOVOLOG *MILD* ALGORITHM WITH MEALS BEDTIME SC Last administered on 12/02/18 12:16; Admin Dose 1 UNIT; Start 11/28/18 at 11:30 Metoprolol Tartrate (Lopressor) 50 mg BID PO Last administered on 12/02/18 09:00; Admin Dose 50 MG; Start 11/28/18 at 21:00 Aspirin (Aspirin) 81 mg DAILY PO Last administered on 12/02/18 08:18; Admin Dose 81 MG; Start 11/29/18 at 09:00 Furosemide (Lasix) 40 mg BID DIURETICS IV Last administered on 12/02/18 05:31; Admin Dose 40 MG; Start 11/30/18 at 18:00 ROCHELLE STERLING NP Dec 02, 2018 13:56
[2018-12-03] VITALS (10 sets, daily range): BP systolic 107–137; BP diastolic 53–78; PULSE 76–93; RESP 18–22
[2018-12-03] MEDS: ALBUTEROL/IPRATROPIUM (NEB) 3 ML AMP HHN SCH ×6 (00:37→20:44)
[2018-12-03] MEDS: FUROSEMIDE 40 MG INJ IV SCH ×2 (05:50→17:36)
[2018-12-03] MEDS: INSULIN ASPART [NOVOLOG] 3 ML PEN SC SCH ×4 (08:07→21:00)
[2018-12-03] MEDS: FLUTICASONE/VILANTEROL 100-25 INH SCH (08:46)
[2018-12-03] MEDS: CLOTRIMAZOLE 1% 30 GM CR TOP SCH ×2 (08:47→21:50)
[2018-12-03] MEDS: METOPROLOL 50 MG TAB PO SCH ×2 (08:47→21:49)
[2018-12-03] MEDS: ASPIRIN 81 MG TAB PO SCH (08:47)
--- NOTE | 2018-12-03 09:34 | PN ---
DATE: 12/03/2018 SUBJECTIVE: The patient is stable. The patient's shortness of breath is improving. No other events noted. OBJECTIVE: VITAL SIGNS: Blood pressure is 131/60, pulse 92, respirations 22, temperature 98.0. HEENT: Head is normocephalic. NECK: Supple. HEART: Regular rate. LUNGS: Show diminished breath sounds at the base. ABDOMEN: Soft, nontender to palpation without rebound or guarding. EXTREMITIES: Negative for clubbing, cyanosis. Positive edema. DERMATOLOGIC: No rashes. MUSCULOSKELETAL: No joint effusion. NEUROLOGIC: No change in exam. MEDICATIONS: Reviewed. LABORATORY DATA: Shows sodium 142, potassium 4.6, BUN 62, creatinine 2.1. White count 5.3, hemoglob in 7.3, platelet count is 28. ASSESSMENT AND PLAN: 1. Nonoliguric acute kidney injury on top of chronic kidney disease with previous baseline creatinin e of 1.5 mg/dL. Etiology of acute kidney injury is secondary to hemodynamics and acute tubular necro sis. The patient was initiated on hemodialysis. The patient is showing good renal recovery as urina ry output has been over 3 liters. At this point, we would continue to hold hemodialysis. Anticipate removing dialysis catheter. Monitor renal function and urinary output closely. 2. Volume overload secondary to congestive heart failure. The patient is clinically improving. Con tinue current diuretic regimen. 3. Anemia. Monitor hemoglobin and hematocrit levels. 4. Mineral bone disorder, monitor calcium and phosphorus levels. 5. Acute respiratory failure secondary to congestive heart failure, reactive airway disease. The pa tient is currently stable. Continue current medical management, supplemental oxygen, and nebulizers. Continue diuretic therapy. 6. Atrial fibrillation. Continue current treatment plan. 7. Diabetes. Continue current insulin regimen. 8. Acute encephalopathy, etiology is toxic metabolic. 9. Aortic stenosis. Continue to monitor. Dictated By: JOCELINE MCCALLUM DO NR/NTS Conf#: [id number] DID#: [id number] CC: JOCELINE MCCALLUM DO; JABIER SEBASTIAN MD;*EndCC*
--- NOTE | 2018-12-03 09:57 | CONS ---
Assessment/Plan Assessment/Plan Assessment/Plan (Daily) Assessment recommendations; 1. Patient admitted with hypoxemia due to severe pulmonary edema as well as generalized anasarca with acute renal failure now hemodialysis dependent. There has been marked interval improvement. 2. Chronic atrial fibrillation. 3. History of hypertension. 4. History of COPD. 5. Development of thrombocytopenia. Etiology is unclear. No overt bleeding noted though. Continue current supportive care. Hemodialysis per criminal legal assistant. Monitor platelet count. Consultation Date/Type/Reason Admit Date/Time Nov 16, 2018 at 17:17 Initial Consult Date Type of Consult Pulmonary/critical care Patient's condition has taken a turn for the worse with altered mental status. Patient now has been transferred to ICU. Hemodialysis will be started shortly. Patient appears confused. But is hemodynamically stable. General exam; elderly woman, awake, agitated off and on. Requesting Provider: JABIER SEBASTIAN Date/Time of Note DATE: 12/03/18 TIME: 09:55 24 HR Interval Summary Free Text/Dictation Patient's condition is stable. Denies any shortness of breath at rest. Denies any chest pain, coughing or wheezing. General exam; elderly lady, awake alert, currently no distress. Awake and alert. Exam/Review of Systems Exam Vitals Vital Signs Date Temp Pulse Resp B/P (MAP) Pulse Ox O2 O2 Flow FiO2 Time Delivery Rate 12/03/18 97 3.0 09:13 12/03/18 92 16 Nasal 09:11 Cannula 12/03/18 98.0 131/60 07:22 (83) Intake and Output 12/02/18 12/02/18 12/03/18 1515:00 23:00 07:00 IntakeIntake Total 480 ml 520 ml OutputOutput Total 2200 ml 1900 ml BalanceBalance -1720 ml -1380 ml Exam HEENT exam; supple neck, positive JVD. Patient is edentulous and has dentures. No neck masses. Chest exam; diminished but clear breath sounds. S1-S2 audible, no murmurs. Irregular rhythm. Abdomen exam; soft, nontender. No organomegaly. Bowel sounds audible. Extremity exam; no clubbing. Trace edema in lower extremities. PACKAGE DRIER exam; no focal deficit. Results Result Diagram: 12/03/18 0550 12/03/18 0550 Results 24hrs Laboratory Tests Test 12/02/18 12:12 12/02/18 17:39 12/02/18 21:12 12/03/18 05:50 Bedside Glucose 152 160 121 White Blood Count 5.3 Red Blood Count 3.18 L Hemoglobin 7.3 L Hematocrit 24.2 L Mean Corpuscular 76.1 L Volume Mean Corpuscular 23.0 L Hemoglobin Mean Corpuscular 30.2 L Hemoglobin Concent Red Cell 20.0 H Distribution Width Platelet Count 28 #*L Mean Platelet Volume Immature 0.400 Granulocytes % Neutrophils % 73.3 Lymphocytes % 13.9 L Monocytes % 10.7 Eosinophils % 1.7 Basophils % 0.0 Nucleated Red Blood 0.0 Cells % Immature 0.020 Granulocytes # Neutrophils # 3.9 Lymphocytes # 0.7 L Monocytes # 0.6 Eosinophils # 0.1 Basophils # 0.0 Nucleated Red Blood 0.0 Cells # Sodium Level 142 Potassium Level 4.6 Chloride Level 103 Carbon Dioxide Level 30 Anion Gap 9 Blood Urea Nitrogen 62 H Creatinine 2.10 H Est Glomerular Filtrat Rate mL/min Glucose Level 216 Calcium Level 8.5 Phosphorus Level 3.7 Magnesium Level 1.9 Test 12/03/18 08:01 Bedside Glucose 188 Medications Medication Current Medications IV Flush (NS 3 ml) 3 ml PER PROTOCOL IV ; Start 11/16/18 at 19:30 Ondansetron HCl (Zofran Inj) 4 mg Q6H PRN IV NAUSEA/VOMITING; Start 11/16/18 at 19:30 Acetaminophen (Tylenol Tab) 650 mg Q6H PRN PO .PAIN 1-3 OR TEMP; Start 11/16/18 at 19:30 Acetaminophen/ Hydrocodone Bitart ([place] (5/325)) 1 tab Q6H PRN PO .MOD PAIN 4- 6 Last administered on 11/30/18at 00:44; Admin Dose 1 TAB; Start 11/16/18 at 19:30 Docusate Sodium (Colace) 100 mg Q12H PRN PO .CONSTIPATION; Start 11/16/18 at 19 :30 Zolpidem Tartrate (Ambien) 5 mg QHS PRN PO .INSOMNIA Last administered on 11/22/18at 23:20; Admin Dose 5 MG; Start 11/16/18 at 19:30 Clotrimazole (Lotrimin Cr) 1 applic BID TOP Last administered on 12/03/18 08:47; Admin Dose 1 APPLIC; Start 11/16/18 at 21:00 Fluticasone/ Vilanterol (Breo Ellipta 100-25 Mcg Inh) 1 inh DAILY INH Last administered on 12/03/18 08:46; Admin Dose 1 INH; Start 11/17/18 at 12:00 Albuterol/ Ipratropium (Duoneb) 3 ml Q4H RESP THERAPY HHN Last administered on 12/03/18 09:08; Admin Dose 3 ML; Start 11/18/18 at 13:00 Metoprolol Tartrate (Lopressor) 5 mg Q4H PRN IV HR>110 Hold SBP<100; Start 11/23/18 at 13:00 Heparin Sodium (Porcine) 250 ml @ 0 mls/hr PER PROTOCOL IV Last administered on 11/28/18 12:52; Admin Dose 7 MLS/HR; Start 11/24/18 at 10:04; Status Hold IV Flush (NS 10 ml) 10 ml PRN PRN IV IV PROTOCOL; Start 11/24/18 at 16:00 Miscellaneous Information 1 ea NOTE XX Last administered on 11/29/18 12:55; Admin Dose 1 EA; Start 11/24/18 at 20:30 Glucose (Glutose) 15 gm Q15M PRN PO DECREASED GLUCOSE; Start 11/24/18 at 20:30 Glucose (Glutose) 22.5 gm Q15M PRN PO DECREASED GLUCOSE; Start 11/24/18 at 20:30 Dextrose (D50w Syringe) 25 ml Q15M PRN IV DECREASED GLUCOSE Last administered on 11/26/18 01:40; Admin Dose 25 ML; Start 11/24/18 at 20:30 Dextrose (D50w Syringe) 50 ml Q15M PRN IV DECREASED GLUCOSE Last administered on 11/29/18 06:01; Admin Dose 50 ML; Start 11/24/18 at 20:30 Glucagon (Glucagen) 1 mg Q15M PRN IM DECREASED GLUCOSE; Start 11/24/18 at 20:30 Glucose (Glutose) 15 gm Q15M PRN BUCCAL DECREASED GLUCOSE; Start 11/24/18 at 20:30 Insulin Aspart (Novolog Insulin Pen) NOVOLOG *MILD* ALGORITHM WITH MEALS BEDTIME SC Last administered on 3/14/19at 08:07; Admin Dose 2 UNIT; Start 11/28/18 at 11:30 Metoprolol Tartrate (Lopressor) 50 mg BID PO Last administered on 12/03/18at 08:47; Admin Dose 50 MG; Start 11/28/18 at 21:00 Aspirin (Aspirin) 81 mg DAILY PO Last administered on 12/03/18at 08:47; Admin Dose 81 MG; Start 11/29/18 at 09:00 Furosemide (Lasix) 40 mg BID DIURETICS IV Last administered on 12/03/18at 05:50; Admin Dose 40 MG; Start 11/30/18 at 18:00 ZACH HEALY Dec 03, 2018 09:57
--- NOTE | 2018-12-03 11:47 | CONS ---
Assessment/Plan Assessment/Plan Hospital Course (Demo Recall) IMP: 1.AF with mild RVR-rate controlled on current dose of BB 2.Renal failure 3.hyperkalemia 4.Bradycardia 5.CHF-diastolic acute on chronic EF 50% by echo this admit 6.HTN 7.-mod to severe by echo 08/09 8. Hematuria Recc: -ICU -Now DNI -IVP PRN BB -Continue current PO BB dose -Continue asa as tolerated for prevention of thromboembolic complications as not able to remain on heparin due to hematuria and worsening anemia with possible need to hold given worsening anemia -Still holding heparin given hematuria which has resolved but now worsening anemia -Continue abx's and f/u cx data -Follow MS -HD now held and would follow volume status closely on lasix IV BID Consultation Date/Type/Reason Admit Date/Time Nov 16, 2018 at 17:17 Initial Consult Date 11/20/18 Type of Consult Cardiology Reason for Consultation AF Requesting Provider: JABIRE SEBASTIAN Date/Time of Note DATE: 12/03/18 TIME: 11:46 Exam/Review of Systems Vital Signs Vitals Vital Signs Date Temp Pulse Resp B/P (MAP) Pulse Ox O2 O2 Flow FiO2 Time Delivery Rate 12/03/18 97.9 77 22 119/57 96 Nasal 3.0 11:10 (77) Cannula Intake and Output 12/02/18 12/02/18 12/03/18 1515:00 23:00 07:00 IntakeIntake Total 480 ml 520 ml OutputOutput Total 2200 ml 1900 ml BalanceBalance -1720 ml -1380 ml Exam Exam Review of Systems: CONSTITUTIONAL: No fevers, chills. PULMONARY: No sob CARDIOVASCULAR: No chest pain/palpitations GASTROINTESTINAL: No nausea/vomiting. GENITOURINARY: No hematuria/dysuria. MUSCULOSKELETAL: No myagias/arthalgias. PSYCHIATRIC: The patient denies depression. NEUROLOGIC: No weakness Constitutional: alert Psych: no complaints Head: normocephalic ENMT: mucosa pink and moist Neck: supple, jvd (9 cm water) Respiratory: diminished breath sounds (at bases/B) Cardiovascular: regular rate and rhythm Gastrointestinal: soft, non-tender Musculoskeletal: muscle tone (normal) Extremities: edema (trace/B) Neurological: other (No focal deficits) Labs Result Diagram: 12/03/18 0550 12/03/18 0550 Results 24hrs Laboratory Tests Test 12/02/18 12:12 12/02/18 17:39 12/02/18 21:12 12/03/18 05:50 Bedside Glucose 152 160 121 White Blood Count 5.3 Red Blood Count 3.18 L Hemoglobin 7.3 L Hematocrit 24.2 L Mean Corpuscular 76.1 L Volume Mean Corpuscular 23.0 L Hemoglobin Mean Corpuscular 30.2 L Hemoglobin Concent Red Cell 20.0 H Distribution Width Platelet Count 28 #*L Mean Platelet Volume Immature 0.400 Granulocytes % Neutrophils % 73.3 Lymphocytes % 13.9 L Monocytes % 10.7 Eosinophils % 1.7 Basophils % 0.0 Nucleated Red Blood 0.0 Cells % Immature 0.020 Granulocytes # Neutrophils # 3.9 Lymphocytes # 0.7 L Monocytes # 0.6 Eosinophils # 0.1 Basophils # 0.0 Nucleated Red Blood 0.0 Cells # Sodium Level 142 Potassium Level 4.6 Chloride Level 103 Carbon Dioxide Level 30 Anion Gap 9 Blood Urea Nitrogen 62 H Creatinine 2.10 H Est Glomerular Filtrat Rate mL/min Glucose Level 216 Calcium Level 8.5 Phosphorus Level 3.7 Magnesium Level 1.9 Test 12/03/18 08:01 Bedside Glucose 188 Medications Medications Current Medications IV Flush (NS 3 ml) 3 ml PER PROTOCOL IV ; Start 11/16/18 at 19:30 Ondansetron HCl (Zofran Inj) 4 mg Q6H PRN IV NAUSEA/VOMITING; Start 11/16/18 at 19:30 Acetaminophen (Tylenol Tab) 650 mg Q6H PRN PO .PAIN 1-3 OR TEMP; Start 11/16/18 at 19:30 Acetaminophen/ Hydrocodone Bitart ([place] (5/325)) 1 tab Q6H PRN PO .MOD PAIN 4- 6 Last administered on 11/30/18at 00:44; Admin Dose 1 TAB; Start 11/16/18 at 19:30 Docusate Sodium (Colace) 100 mg Q12H PRN PO .CONSTIPATION; Start 11/16/18 at 19:30 Zolpidem Tartrate (Ambien) 5 mg QHS PRN PO .INSOMNIA Last administered on 11/22/18at 23:20; Admin Dose 5 MG; Start 11/16/18 at 19:30 Clotrimazole (Lotrimin Cr) 1 applic BID TOP Last administered on 12/03/18 08:47; Admin Dose 1 APPLIC; Start 11/16/18 at 21:00 Fluticasone/ Vilanterol (Breo Ellipta 100-25 Mcg Inh) 1 inh DAILY INH Last administered on 12/03/18 08:46; Admin Dose 1 INH; Start 11/17/18 at 12:00 Albuterol/ Ipratropium (Duoneb) 3 ml Q4H RESP THERAPY HHN Last administered on 12/03/18at 09:08; Admin Dose 3 ML; Start 11/18/18 at 13:00 Metoprolol Tartrate (Lopressor) 5 mg Q4H PRN IV HR>110 Hold SBP<100; Start 11/23/18 at 13:00 IV Flush (NS 10 ml) 10 ml PRN PRN IV IV PROTOCOL; Start 11/24/18 at 16:00 Miscellaneous Information 1 ea NOTE XX Last administered on 11/29/18at 12:55; Admin Dose 1 EA; Start 11/24/18 at 20:30 Glucose (Glutose) 15 gm Q15M PRN PO DECREASED GLUCOSE; Start 11/24/18 at 20:30 Glucose (Glutose) 22.5 gm Q15M PRN PO DECREASED GLUCOSE; Start 11/24/18 at 20:30 Dextrose (D50w Syringe) 25 ml Q15M PRN IV DECREASED GLUCOSE Last administered on 11/26/18at 01:40; Admin Dose 25 ML; Start 11/24/18 at 20:30 Dextrose (D50w Syringe) 50 ml Q15M PRN IV DECREASED GLUCOSE Last administered on 11/29/18at 06:01; Admin Dose 50 ML; Start 11/24/18 at 20:30 Glucagon (Glucagen) 1 mg Q15M PRN IM DECREASED GLUCOSE; Start 11/24/18 at 20:30 Glucose (Glutose) 15 gm Q15M PRN BUCCAL DECREASED GLUCOSE; Start 11/24/18 at 20:30 Insulin Aspart (Novolog Insulin Pen) NOVOLOG *MILD* ALGORITHM WITH MEALS BEDTIME SC Last administered on 12/03/18at 08:07; Admin Dose 2 UNIT; Start 11/28/18 at 11:30 Metoprolol Tartrate (Lopressor) 50 mg BID PO Last administered on 12/03/18at 08:47; Admin Dose 50 MG; Start 11/28/18 at 21:00 Furosemide (Lasix) 40 mg BID DIURETICS IV Last administered on 12/03/18at 05:50; Admin Dose 40 MG; Start 11/30/18 at 18:00 GHASSAN SHERMAN Dec 03, 2018 11:47
--- NOTE | 2018-12-03 13:16 | PN ---
Date/Time of Note Date/Time of Note DATE: 12/03/18 TIME: 13:14 Assessment/Plan VTE Prophylaxis Risk score (from Ns)>0 risk: 6 SCD applied (from Ns): Yes Pharmacological prophylaxis: heparin Lines/Catheters IV Catheter Type (from Nrsg): PICC Line Central line still needed: Yes Urinary Cath still in place: Yes Reason Cath still needed: urinary retention Assessment/Plan Hospital Course 83 yo female with , diastolic CHF with acute respiratory failure and volume overload from CHF and BRIE. She was transferred to ICU and was at risk for i ntubation. HD was intiated and patient has improved markedly. Respiratory status stable. Remains a bit hypervolemic. Holding HD now. Patient's family reversed their decision for palliative care. Continue to want aggressive care now but remains DNR Thrombocytopenia: - Concerning for HIT. Stop heparin products Acute respiratory failure 2/2 volume overload: - patient's status has improved, now stable on NC - Continue O2 by NC BRIE: - Kidneys recovering with good urine output - diuretics per renal - Holding off on HD A Fib: - Hold heparin given hematuria and thrombocytopenia Cirrhosis Septic encephelopathy, improving Sepsis - will stop abx at this point, no clear source DNR Dischage plannign: Patient can be discharged when volume status is optimzied. Likely will need subacute rehab. Result Diagram: 12/03/18 0550 12/03/18 0550 Results 24hrs Laboratory Tests Test 12/02/18 17:39 12/02/18 21:12 12/03/18 05:50 12/03/18 08:01 Bedside Glucose 160 121 188 White Blood Count 5.3 Red Blood Count 3.18 L Hemoglobin 7.3 L Hematocrit 24.2 L Mean Corpuscular 76.1 L Volume Mean Corpuscular 23.0 L Hemoglobin Mean Corpuscular 30.2 L Hemoglobin Concent Red Cell 20.0 H Distribution Width Platelet Count 28 #*L Mean Platelet Volume Immature 0.400 Granulocytes % Neutrophils % 73.3 Lymphocytes % 13.9 L Monocytes % 10.7 Eosinophils % 1.7 Basophils % 0.0 Nucleated Red Blood 0.0 Cells % Immature 0.020 Granulocytes # Neutrophils # 3.9 Lymphocytes # 0.7 L Monocytes # 0.6 Eosinophils # 0.1 Basophils # 0.0 Nucleated Red Blood 0.0 Cells # Sodium Level 142 Potassium Level 4.6 Chloride Level 103 Carbon Dioxide Level 30 Anion Gap 9 Blood Urea Nitrogen 62 H Creatinine 2.10 H Est Glomerular Filtrat Rate mL/min Glucose Level 216 Calcium Level 8.5 Phosphorus Level 3.7 Magnesium Level 1.9 Test 12/03/18 12:02 Bedside Glucose 113 Subjective 24 Hr Interval Summary Free Text/Dictation Doing well, no complaints Breathing comfortably Renal function improved Platelets dropping, heparin stopped Exam/Review of Systems Exam Vitals Vital Signs Date Temp Pulse Resp B/P (MAP) Pulse Ox O2 O2 Flow FiO2 Time Delivery Rate 12/03/18 76 12:12 12/03/18 97.9 22 119/57 96 Nasal 3.0 11:10 (77) Cannula Intake and Output 12/02/18 12/02/18 12/03/18 1515:00 23:00 07:00 IntakeIntake Total 480 ml 520 ml OutputOutput Total 2200 ml 1900 ml BalanceBalance -1720 ml -1380 ml Constitutional: alert, oriented, well developed Psych: no complaints, nl mood/affect Head: normocephalic, atraumatic Eyes: nl conjunctiva, EOMI, nl lids, nl sclera, PERRL ENMT: nl external ears & nose, nl lips & teeth, nl nasal mucosa & septum Neck: supple, non-tender Respiratory: clear to auscultation, normal air movement Cardiovascular: regular rate and rhythm, nl pulses Gastrointestinal: soft, nl liver, spleen, non-tender Musculoskeletal: nl extremities to inspection, nl gait and stance Extremities: normal pulses 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, nl mental status, nl speech, nl strength Skin: nl turgor; No rash or lesions Lymph: nl lymph nodes Results Results 24hrs Laboratory Tests Test 12/02/18 17:39 12/02/18 21:12 12/03/18 05:50 12/03/18 08:01 Bedside Glucose 160 121 188 White Blood Count 5.3 Red Blood Count 3.18 L Hemoglobin 7.3 L Hematocrit 24.2 L Mean Corpuscular 76.1 L Volume Mean Corpuscular 23.0 L Hemoglobin Mean Corpuscular 30.2 L Hemoglobin Concent Red Cell 20.0 H Distribution Width Platelet Count 28 #*L Mean Platelet Volume Immature 0.400 Granulocytes % Neutrophils % 73.3 Lymphocytes % 13.9 L Monocytes % 10.7 Eosinophils % 1.7 Basophils % 0.0 Nucleated Red Blood 0.0 Cells % Immature 0.020 Granulocytes # Neutrophils # 3.9 Lymphocytes # 0.7 L Monocytes # 0.6 Eosinophils # 0.1 Basophils # 0.0 Nucleated Red Blood 0.0 Cells # Sodium Level 142 Potassium Level 4.6 Chloride Level 103 Carbon Dioxide Level 30 Anion Gap 9 Blood Urea Nitrogen 62 H Creatinine 2.10 H Est Glomerular Filtrat Rate mL/min Glucose Level 216 Calcium Level 8.5 Phosphorus Level 3.7 Magnesium Level 1.9 Test 12/03/18 12:02 Bedside Glucose 113 Medications Medication Current Medications IV Flush (NS 3 ml) 3 ml PER PROTOCOL IV ; Start 11/16/18 at 19:30 Ondansetron HCl (Zofran Inj) 4 mg Q6H PRN IV NAUSEA/VOMITING; Start 11/16/18 at 19:30 Acetaminophen (Tylenol Tab) 650 mg Q6H PRN PO .PAIN 1-3 OR TEMP; Start 11/16/18 at 19:30 Acetaminophen/ Hydrocodone Bitart ([place] (5/325)) 1 tab Q6H PRN PO .MOD PAIN 4- 6 Last administered on 11/30/18at 00:44; Admin Dose 1 TAB; Start 11/16/18 at 19:30 Docusate Sodium (Colace) 100 mg Q12H PRN PO .CONSTIPATION; Start 11/16/18 at 19 :30 Zolpidem Tartrate (Ambien) 5 mg QHS PRN PO .INSOMNIA Last administered on 11/22/18 23:20; Admin Dose 5 MG; Start 11/16/18 at 19:30 Clotrimazole (Lotrimin Cr) 1 applic BID TOP Last administered on 12/03/18 08:47; Admin Dose 1 APPLIC; Start 11/16/18 at 21:00 Fluticasone/ Vilanterol (Breo Ellipta 100-25 Mcg Inh) 1 inh DAILY INH Last administered on 12/03/18 08:46; Admin Dose 1 INH; Start 11/17/18 at 12:00 Albuterol/ Ipratropium (Duoneb) 3 ml Q4H RESP THERAPY HHN Last administered on 12/03/18 09:08; Admin Dose 3 ML; Start 11/18/18 at 13:00 Metoprolol Tartrate (Lopressor) 5 mg Q4H PRN IV HR>110 Hold SBP<100; Start 11/23/18 at 13:00 IV Flush (NS 10 ml) 10 ml PRN PRN IV IV PROTOCOL; Start 11/24/18 at 16:00 Miscellaneous Information 1 ea NOTE XX Last administered on 11/29/18 12:55; A dmin Dose 1 EA; Start 11/24/18 at 20:30 Glucose (Glutose) 15 gm Q15M PRN PO DECREASED GLUCOSE; Start 11/24/18 at 20:30 Glucose (Glutose) 22.5 gm Q15M PRN PO DECREASED GLUCOSE; Start 11/24/18 at 20:30 Dextrose (D50w Syringe) 25 ml Q15M PRN IV DECREASED GLUCOSE Last administered on 11/26/18 01:40; Admin Dose 25 ML; Start 11/24/18 at 20:30 Dextrose (D50w Syringe) 50 ml Q15M PRN IV DECREASED GLUCOSE Last administered on 11/29/18 06:01; Admin Dose 50 ML; Start 11/24/18 at 20:30 Glucagon (Glucagen) 1 mg Q15M PRN IM DECREASED GLUCOSE; Start 11/24/18 at 20:30 Glucose (Glutose) 15 gm Q15M PRN BUCCAL DECREASED GLUCOSE; Start 11/24/18 at 20:30 Insulin Aspart (Novolog Insulin Pen) NOVOLOG *MILD* ALGORITHM WITH MEALS BEDTIME SC Last administered on 12/03/18 08:07; Admin Dose 2 UNIT; Start 11/28/18 at 11:30 Metoprolol Tartrate (Lopressor) 50 mg BID PO Last administered on 12/03/18 08:47; Admin Dose 50 MG; Start 11/28/18 at 21:00 Furosemide (Lasix) 40 mg BID DIURETICS IV Last administered on 12/03/18 05:50; Admin Dose 40 MG; Start 11/30/18 at 18:00 HARIS GREEN MD Dec 03, 2018 13:16
--- NOTE | 2018-12-03 16:26 | CONS ---
Assessment/Plan Assessment/Plan Hospital Course (Demo Recall) Patient is alert feels good and comfortable on nasal cannula Antimicrobial: none Indwelling: Right femoral Noel, Soto catheter. PICC Physical examination: Well-developed morbidly obese -[place] woman who in no distress. Head atraumatic normocephalic sclera nonicteric. Neck is supple. Chest rise symmetrical breath sounds diminished to bases. Heart: S1- S2.. Abdomen obese soft, bowel sounds present. Extremities: Bilateral lower extremities edema erythema and multiple wounds Assessment: 1. Acute hypoxemic respiratory failure secondary to pulmonary edema and CHF exacerbation 2. S/p sepsis, present on admission 3. 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 S/p Urinary tract infection 5. Staph bacteremia consistent with contaminant 6. Morbid obesity 7. Atrial fibrillation 8. Diabetes 9. Acute kidney failure==> HD on hold 7. Pancytopenia Plan: Patient remains stable, off antibiotics, continue present care Consultation Date/Type/Reason Admit Date/Time Nov 16, 2018 at 17:17 Initial Consult Date Type of Consult id Requesting Provider: JABIER SEBASTIAN Date/Time of Note DATE: 12/03/18 TIME: 16:26 Exam/Review of Systems Exam Vitals Vital Signs Date Temp Pulse Resp B/P (MAP) Pulse Ox O2 O2 Flow FiO2 Time Delivery Rate 12/03/18 83 16:02 12/03/18 98.0 22 107/53 96 Nasal 15:47 (71) Cannula 12/03/18 3.0 13:48 Intake and Output 12/02/18 12/02/18 12/03/18 1515:00 23:00 07:00 IntakeIntake Total 480 ml 520 ml OutputOutput Total 2200 ml 1900 ml BalanceBalance -1720 ml -1380 ml Results Result Diagram: 12/03/18 0550 12/03/18 0550 Results 24hrs Laboratory Tests Test 12/02/18 17:39 12/02/18 21:12 12/03/18 05:50 12/03/18 08:01 Bedside Glucose 160 121 188 White Blood Count 5.3 Red Blood Count 3.18 L Hemoglobin 7.3 L Hematocrit 24.2 L Mean Corpuscular 76.1 L Volume Mean Corpuscular 23.0 L Hemoglobin Mean Corpuscular 30.2 L Hemoglobin Concent Red Cell 20.0 H Distribution Width Platelet Count 28 #*L Mean Platelet Volume Immature 0.400 Granulocytes % Neutrophils % 73.3 Lymphocytes % 13.9 L Monocytes % 10.7 Eosinophils % 1.7 Basophils % 0.0 Nucleated Red Blood 0.0 Cells % Immature 0.020 Granulocytes # Neutrophils # 3.9 Lymphocytes # 0.7 L Monocytes # 0.6 Eosinophils # 0.1 Basophils # 0.0 Nucleated Red Blood 0.0 Cells # Sodium Level 142 Potassium Level 4.6 Chloride Level 103 Carbon Dioxide Level 30 Anion Gap 9 Blood Urea Nitrogen 62 H Creatinine 2.10 H Est Glomerular Filtrat Rate mL/min Glucose Level 216 Calcium Level 8.5 Phosphorus Level 3.7 Magnesium Level 1.9 Test 12/03/18 12:02 Bedside Glucose 113 Medications Medication Current Medications IV Flush (NS 3 ml) 3 ml PER PROTOCOL IV ; Start 11/16/18 at 19:30 Ondansetron HCl (Zofran Inj) 4 mg Q6H PRN IV NAUSEA/VOMITING; Start 11/16/18 at 19:30 Acetaminophen (Tylenol Tab) 650 mg Q6H PRN PO .PAIN 1-3 OR TEMP; Start 11/16/18 at 19:30 Acetaminophen/ Hydrocodone Bitart ([place] (5/325)) 1 tab Q6H PRN PO .MOD PAIN 4- 6 Last administered on 11/30/18at 00:44; Admin Dose 1 TAB; Start 11/16/18 at 19:30 Docusate Sodium (Colace) 100 mg Q12H PRN PO .CONSTIPATION; Start 11/16/18 at 19:30 Zolpidem Tartrate (Ambien) 5 mg QHS PRN PO .INSOMNIA Last administered on 11/22/18at 23:20; Admin Dose 5 MG; Start 11/16/18 at 19:30 Clotrimazole (Lotrimin Cr) 1 applic BID TOP Last administered on 12/03/18at 08:47; Admin Dose 1 APPLIC; Start 11/16/18 at 21:00 Fluticasone/ Vilanterol (Breo Ellipta 100-25 Mcg Inh) 1 inh DAILY INH Last administered on 12/03/18at 08:46; Admin Dose 1 INH; Start 11/17/18 at 12:00 Albuterol/ Ipratropium (Duoneb) 3 ml Q4H RESP THERAPY HHN Last administered on 12/03/18 13:43; Admin Dose 3 ML; Start 11/18/18 at 13:00 Metoprolol Tartrate (Lopressor) 5 mg Q4H PRN IV HR>110 Hold SBP<100; Start 11/23/18 at 13:00 IV Flush (NS 10 ml) 10 ml PRN PRN IV IV PROTOCOL; Start 11/24/18 at 16:00 Miscellaneous Information 1 ea NOTE XX Last administered on 11/29/18at 12:55; Admin Dose 1 EA; Start 11/24/18 at 20:30 Glucose (Glutose) 15 gm Q15M PRN PO DECREASED GLUCOSE; Start 11/24/18 at 20:30 Glucose (Glutose) 22.5 gm Q15M PRN PO DECREASED GLUCOSE; Start 11/24/18 at 20:30 Dextrose (D50w Syringe) 25 ml Q15M PRN IV DECREASED GLUCOSE Last administered on 11/26/18 01:40; Admin Dose 25 ML; Start 11/24/18 at 20:30 Dextrose (D50w Syringe) 50 ml Q15M PRN IV DECREASED GLUCOSE Last administered on 11/29/18 06:01; Admin Dose 50 ML; Start 11/24/18 at 20:30 Glucagon (Glucagen) 1 mg Q15M PRN IM DECREASED GLUCOSE; Start 11/24/18 at 20:30 Glucose (Glutose) 15 gm Q15M PRN BUCCAL DECREASED GLUCOSE; Start 11/24/18 at 20:30 Insulin Aspart (Novolog Insulin Pen) NOVOLOG *MILD* ALGORITHM WITH MEALS BEDTIME SC Last administered on 12/03/18 08:07; Admin Dose 2 UNIT; Start 11/28/18 at 11:30 Metoprolol Tartrate (Lopressor) 50 mg BID PO Last administered on 12/03/18 08:47; Admin Dose 50 MG; Start 11/28/18 at 21:00 Furosemide (Lasix) 40 mg BID DIURETICS IV Last administered on 12/03/18 05:50; Admin Dose 40 MG; Start 11/30/18 at 18:00 ROCHELLE STERLING NP Dec 03, 2018 16:26
[2018-12-04] VITALS (13 sets, daily range): BP systolic 1–130; BP diastolic 6–62; PULSE 75–98; RESP 17–18
[2018-12-04] MEDS: ALBUTEROL/IPRATROPIUM (NEB) 3 ML AMP HHN SCH ×6 (01:30→20:47)
[2018-12-04] MEDS: FUROSEMIDE 40 MG INJ IV SCH ×2 (05:39→18:02)
--- NOTE | 2018-12-04 07:29 | CONS ---
Assessment/Plan Assessment/Plan Assessment/Plan (Daily) Coughing a little bit more than usual yesterday she was pretty stable comfortable. Complaining of little shortness of breath but appears to be comfortable. Only change in her laboratory tests her platelet count is down to 28,000 Injuries group I will keep family involved with her overall medical condition deconditioning congestive heart failure fluid overload CODE STATUS to DO NOT RESUSCITATE no cardiopulmonary resuscitation or DC cardioversion temporary trial of intubation only. And to continue with ongoing family conferencing. Consultation Date/Type/Reason Admit Date/Time Nov 16, 2018 at 17:17 Initial Consult Date Requesting Provider: JABIER SEBASTIAN Date/Time of Note DATE: 12/04/18 TIME: 07:27 Exam/Review of Systems Exam Vitals Vital Signs Date Temp Pulse Resp B/P (MAP) Pulse Ox O2 O2 Flow FiO2 Time Delivery Rate 12/04/18 90 20 98 Nasal 3.0 04:45 Cannula 12/04/18 98.3 128/62 04:00 (84) Intake and Output 12/03/18 12/03/18 12/04/18 1515:00 23:00 07:00 IntakeIntake Total 750 ml 550 ml OutputOutput Total 1200 ml BalanceBalance -450 ml 550 ml Constitutional: alert, oriented, well developed, distress Psych: anxiety Respiratory: clear to auscultation, normal air movement, congested cough, crackles/rales, diminished breath sounds Cardiovascular: regular rate and rhythm, nl pulses Results Result Diagram: 12/03/18 0550 12/03/18 0550 Results 24hrs Laboratory Tests Test 12/03/18 08:01 12/03/18 12:02 12/03/18 17:20 12/03/18 20:55 Bedside Glucose 188 113 218 167 Medications Medication Current Medications IV Flush (NS 3 ml) 3 ml PER PROTOCOL IV ; Start 11/16/18 at 19:30 Ondansetron HCl (Zofran Inj) 4 mg Q6H PRN IV NAUSEA/VOMITING; Start 11/16/18 at 19:30 Acetaminophen (Tylenol Tab) 650 mg Q6H PRN PO .PAIN 1-3 OR TEMP; Start 11/16/18 at 19:30 Acetaminophen/ Hydrocodone Bitart ([place] (5/325)) 1 tab Q6H PRN PO .MOD PAIN 4- 6 Last administered on 11/30/18 00:44; Admin Dose 1 TAB; Start 11/16/18 at 19:30 Docusate Sodium (Colace) 100 mg Q12H PRN PO .CONSTIPATION; Start 11/16/18 at 19:30 Zolpidem Tartrate (Ambien) 5 mg QHS PRN PO .INSOMNIA Last administered on 11/22/18 23:20; Admin Dose 5 MG; Start 11/16/18 at 19:30 Clotrimazole (Lotrimin Cr) 1 applic BID TOP Last administered on 12/03/18 21:50; Admin Dose 1 APPLIC; Start 11/16/18 at 21:00 Fluticasone/ Vilanterol (Breo Ellipta 100-25 Mcg Inh) 1 inh DAILY INH Last administered on 12/03/18 08:46; Admin Dose 1 INH; Start 11/17/18 at 12:00 Albuterol/ Ipratropium (Duoneb) 3 ml Q4H RESP THERAPY HHN Last administered on 12/04/18 04:45; Admin Dose 3 ML; Start 11/18/18 at 13:00 Metoprolol Tartrate (Lopressor) 5 mg Q4H PRN IV HR>110 Hold SBP<100; Start 11/23/18 at 13:00 IV Flush (NS 10 ml) 10 ml PRN PRN IV IV PROTOCOL; Start 11/24/18 at 16:00 Miscellaneous Information 1 ea NOTE XX Last administered on 11/29/18 12:55; Admin Dose 1 EA; Start 11/24/18 at 20:30 Glucose (Glutose) 15 gm Q15M PRN PO DECREASED GLUCOSE; Start 11/24/18 at 20:30 Glucose (Glutose) 22.5 gm Q15M PRN PO DECREASED GLUCOSE; Start 11/24/18 at 20:30 Dextrose (D50w Syringe) 25 ml Q15M PRN IV DECREASED GLUCOSE Last administered on 11/26/18 01:40; Admin Dose 25 ML; Start 11/24/18 at 20:30 Dextrose (D50w Syringe) 50 ml Q15M PRN IV DECREASED GLUCOSE Last administered on 11/29/18 06:01; Admin Dose 50 ML; Start 11/24/18 at 20:30 Glucagon (Glucagen) 1 mg Q15M PRN IM DECREASED GLUCOSE; Start 11/24/18 at 20:30 Glucose (Glutose) 15 gm Q15M PRN BUCCAL DECREASED GLUCOSE; Start 11/24/18 at 20:30 Insulin Aspart (Novolog Insulin Pen) NOVOLOG *MILD* ALGORITHM WITH MEALS BEDTIME SC Last administered on 12/03/18at 17:25; Admin Dose 2 UNIT; Start 11/28/18 at 11:30 Metoprolol Tartrate (Lopressor) 50 mg BID PO Last administered on 12/03/18at 21:49; Admin Dose 50 MG; Start 11/28/18 at 21:00 Furosemide (Lasix) 40 mg BID DIURETICS IV Last administered on 12/04/18at 05:39; Admin Dose 40 MG; Start 11/30/18 at 18:00 MINI PAEZ Dec 04, 2018 07:29
[2018-12-04] MEDS: INSULIN ASPART [NOVOLOG] 3 ML PEN SC SCH ×4 (07:52→22:17)
[2018-12-04] MEDS: CLOTRIMAZOLE 1% 30 GM CR TOP SCH ×2 (08:16→21:00)
[2018-12-04] MEDS: METOPROLOL 50 MG TAB PO SCH ×2 (08:17→21:56)
[2018-12-04] MEDS: FLUTICASONE/VILANTEROL 100-25 INH SCH (08:17)
--- NOTE | 2018-12-04 09:38 | PN ---
DATE: 12/04/2018 SUBJECTIVE: The patient was noted to have more respiratory distress this morning. No other events noted overnight. OBJECTIVE: VITAL SIGNS: Blood pressure is 119/55, respirations 18, pulse 87, temperature 98.2. HEENT: Head is normocephalic. NECK: Supple. HEART: Regular rate. LUNGS: Show diminished breath sounds at the base. ABDOMEN: Soft, nontender to palpation without rebound or guarding. EXTREMITIES: Negative for clubbing, cyanosis, positive edema. DERMATOLOGIC: No rashes. MUSCULOSKELETAL: No joint effusion. NEUROLOGIC: No change in exam. MEDICATIONS: Reviewed. LABORATORY DATA: From 12/03/2018 was reviewed. Laboratory data from 12/04/2018 is pending. ASSESSMENT AND PLAN: 1. Nonoliguric acute kidney injury on top of chronic kidney disease with previous baseline creatinine of 1.5 mg/dL. Etiology of acute kidney injury is secondary to hemodynamics, possible tubular injury. The patient was initiated on dialysis. However, has been showing signs of renal recovery. The patient had excellent urinary output. The patient's Soto catheter; however, has been removed. Continue diuretics. Anticipate removing germaine catheter. 2. Volume overload secondary to congestive heart failure. Continue diuretic therapy. Continue diuretics 3. Anemia. Continue to monitor hemoglobin and hematocrit levels. 4. Mineral bone disorder, monitor calcium and phosphorus levels. 5. Acute respiratory failure secondary to congestive heart failure, reactive airway disease. Continue current medical management, supplemental oxygen. Continue diuretic therapy. 6. Atrial fibrillation. Continue current treatment plan. 7. Diabetes. Continue current insulin regimen. 8. Acute encephalopathy, etiology is toxic metabolic. 9. Aortic stenosis. Continue to monitor. Dictated By: JOCELINE MCCALLUM DO NR/NTS Conf#: [id number] DID#: [id number] CC: JABIER SEBASTIAN MD; JOCELINE MCCALLUM DO;*EndCC* MTDD
--- NOTE | 2018-12-04 12:15 | PN ---
Date/Time of Note Date/Time of Note DATE: 12/04/18 TIME: 12:14 Assessment/Plan VTE Prophylaxis Risk score (from Nsg)>0 risk: 6 SCD applied (from Nsg): Yes Pharmacological prophylaxis: heparin Lines/Catheters IV Catheter Type (from Nrsg): PICC Line Central line still needed: Yes Urinary Cath still in place: No Assessment/Plan Hospital Course 83 yo female with , diastolic CHF with acute respiratory failure and volume overload from CHF and BRIE. She was transferred to ICU and was at risk for intubation. HD was intiated and patient has improved markedly. Respiratory status stable. Remains a bit hypervolemic. Holding HD now. Kidneys recovering. Now wtih thrombocytopenia concerning for HIT Thrombocytopenia: - Concerning for HIT. Stop heparin products. Unfortunately she refused labs Acute respiratory failure 2/2 volume overload: - patient's status has improved, now stable on NC - Continue O2 by NC BRIE: - Kidneys recovering with good urine output - diuretics per renal - Holding off on HD A Fib: - Hold heparin given hematuria and thrombocytopenia Cirrhosis Septic encephelopathy, improving Sepsis - will stop abx at this point, no clear source DNR Dischage plannign: Patient can be discharged when volume status is optimzied and platelet situation resolved. Likely will need subacute rehab. Result Diagram: 12/03/18 0550 12/03/18 0550 Results 24hrs Laboratory Tests Test 12/03/18 17:20 12/03/18 20:55 12/04/18 07:44 12/04/18 11:50 Bedside Glucose 218 167 235 H 230 H Subjective 24 Hr Interval Summary Free Text/Dictation Pateint doing well Breathing comfortably Labs refused x 2 Exam/Review of Systems Exam Vitals Vital Signs Date Temp Pulse Resp B/P (MAP) Pulse Ox O2 O2 Flow FiO2 Time Delivery Rate 12/04/18 80 12:03 12/04/18 98.3 18 120/58 100 11:36 (78) 12/04/18 3.0 10:21 12/04/18 Nasal 10:20 Cannula Intake and Output 12/03/18 12/03/18 12/04/18 1515:00 23:00 07:00 IntakeIntake Total 750 ml 550 ml OutputOutput Total 1200 ml BalanceBalance -450 ml 550 ml Constitutional: alert, oriented, well developed Psych: no complaints, nl mood/affect Head: normocephalic, atraumatic Eyes: nl conjunctiva, EOMI, nl lids, nl sclera, PERRL ENMT: nl external ears & nose, nl lips & teeth, nl nasal mucosa & septum Neck: supple, non-tender Respiratory: clear to auscultation, normal air movement Cardiovascular: regular rate and rhythm, nl pulses Gastrointestinal: soft, nl liver, spleen, non-tender Musculoskeletal: nl extremities to inspection, nl gait and stance Extremities: normal pulses Neurological: STUDENT AMBASSADOR II-XII intact, nl mental status, nl speech, nl strength Skin: nl turgor; No rash or lesions Lymph: nl lymph nodes Results Results 24hrs Laboratory Tests Test 12/03/18 17:20 12/03/18 20:55 12/04/18 07:44 12/04/18 11:50 Bedside Glucose 218 167 235 H 230 H Medications Medication Current Medications IV Flush (NS 3 ml) 3 ml PER PROTOCOL IV ; Start 11/16/18 at 19:30 Ondansetron HCl (Zofran Inj) 4 mg Q6H PRN IV NAUSEA/VOMITING; Start 11/16/18 at 19:30 Acetaminophen (Tylenol Tab) 650 mg Q6H PRN PO .PAIN 1-3 OR TEMP; Start 11/16/18 at 19:30 Acetaminophen/ Hydrocodone Bitart ([place] (5/325)) 1 tab Q6H PRN PO .MOD PAIN 4- 6 Last administered on 11/30/18at 00:44; Admin Dose 1 TAB; Start 11/16/18 at 19:30 Docusate Sodium (Colace) 100 mg Q12H PRN PO .CONSTIPATION; Start 11/16/18 at 19:30 Zolpidem Tartrate (Ambien) 5 mg QHS PRN PO .INSOMNIA Last administered on 11/22/18at 23:20; Admin Dose 5 MG; Start 11/16/18 at 19:30 Clotrimazole (Lotrimin Cr) 1 applic BID TOP Last administered on 12/04/18at 08:16; Admin Dose 1 APPLIC; Start 11/16/18 at 21:00 Fluticasone/ Vilanterol (Breo Ellipta 100-25 Mcg Inh) 1 inh DAILY INH Last administered on 12/04/18at 08:17; Admin Dose 1 INH; Start 11/17/18 at 12:00 Albuterol/ Ipratropium (Duoneb) 3 ml Q4H RESP THERAPY HHN Last administered on 12/04/18 10:16; Admin Dose 3 ML; Start 11/18/18 at 13:00 Metoprolol Tartrate (Lopressor) 5 mg Q4H PRN IV HR>110 Hold SBP<100; Start 11/23/18 at 13:00 IV Flush (NS 10 ml) 10 ml PRN PRN IV IV PROTOCOL; Start 11/24/18 at 16:00 Miscellaneous Information 1 ea NOTE XX Last administered on 11/29/18at 12:55; Admin Dose 1 EA; Start 11/24/18 at 20:30 Glucose (Glutose) 15 gm Q15M PRN PO DECREASED GLUCOSE; Start 11/24/18 at 20:30 Glucose (Glutose) 22.5 gm Q15M PRN PO DECREASED GLUCOSE; Start 11/24/18 at 20:30 Dextrose (D50w Syringe) 25 ml Q15M PRN IV DECREASED GLUCOSE Last administered on 11/26/18 01:40; Admin Dose 25 ML; Start 11/24/18 at 20:30 Dextrose (D50w Syringe) 50 ml Q15M PRN IV DECREASED GLUCOSE Last administered on 11/29/18 06:01; Admin Dose 50 ML; Start 11/24/18 at 20:30 Glucagon (Glucagen) 1 mg Q15M PRN IM DECREASED GLUCOSE; Start 11/24/18 at 20:30 Glucose (Glutose) 15 gm Q15M PRN BUCCAL DECREASED GLUCOSE; Start 11/24/18 at 20:30 Insulin Aspart (Novolog Insulin Pen) NOVOLOG *MILD* ALGORITHM WITH MEALS BEDTIME SC Last administered on 12/04/18 11:56; Admin Dose 3 UNIT; Start at 11:30 Metoprolol Tartrate (Lopressor) 50 mg BID PO Last administered on 12/04/18 08:17; Admin Dose 50 MG; Start 11/28/18 at 21:00 Furosemide (Lasix) 40 mg BID DIURETICS IV Last administered on 12/04/18 05:39; Admin Dose 40 MG; Start 11/30/18 at 18:00 HARIS GREEN MD Dec 04, 2018 12:15
--- NOTE | 2018-12-04 12:38 | CONS ---
Consult Date/Type/Reason Admit Date/Time Nov 16, 2018 at 17:17 Initial Consult Date Type of Consult Pulmonary Requesting Provider: JABIER SEBASTIAN Date/Time of Note DATE: 12/04/18 TIME: 12:37 Subjective Patient comfortable this morning no respiratory distress Objective Vital Signs Date Temp Pulse Resp B/P (MAP) Pulse Ox O2 O2 Flow FiO2 Time Delivery Rate 12/04/18 80 12:03 12/04/18 98.3 18 120/58 100 11:36 (78) 12/04/18 3.0 10:21 12/04/18 Nasal 10:20 Cannula Intake and Output 12/03/18 12/03/18 12/04/18 1515:00 23:00 07:00 IntakeIntake Total 750 ml 550 ml OutputOutput Total 1200 ml BalanceBalance -450 ml 550 ml Exam GENERAL: Elderly lady in no acute distress VITAL SIGNS: per chart NECK: Supple. No JVD or lymphadenopathy. CARDIAC EXAM: S1, S2. No added sounds or murmurs. CHEST: Diminished air entry bilaterally ABDOMEN: Soft, nontender. No guarding or rebound. EXTREMITIES: No cyanosis, clubbing or edema. NEUROLOGIC: Generalized weakness. No focal deficits. Vent Setting Fraction of Inspired Oxygen pe: 28 Results/Medications Result Diagram: 12/03/18 0550 12/04/18 1129 Results 24 hrs Laboratory Tests Test 12/03/18 17:20 12/03/18 20:55 12/04/18 07:44 12/04/18 11:29 Bedside Glucose 218 167 235 H Sodium Level 141 Potassium Level 4.4 Chloride Level 103 Carbon Dioxide Level 32 H Anion Gap 6 Blood Urea Nitrogen 64 H Creatinine 2.13 H Est Glomerular Filtrat Rate mL/min Glucose Level 209 Calcium Level 8.5 Test 12/04/18 11:50 Bedside Glucose 230 H Medications Current Medications IV Flush (NS 3 ml) 3 ml PER PROTOCOL IV ; Start 11/16/18 at 19:30 Ondansetron HCl (Zofran Inj) 4 mg Q6H PRN IV NAUSEA/VOMITING; Start 11/16/18 at 19:30 Acetaminophen (Tylenol Tab) 650 mg Q6H PRN PO .PAIN 1-3 OR TEMP; Start 11/16/18 at 19:30 Acetaminophen/ Hydrocodone Bitart ([place] (5/325)) 1 tab Q6H PRN PO .MOD PAIN 4- 6 Last administered on 11/30/18 00:44; Admin Dose 1 TAB; Start 11/16/18 at 19:30 Docusate Sodium (Colace) 100 mg Q12H PRN PO .CONSTIPATION; Start 11/16/18 at 19:30 Zolpidem Tartrate (Ambien) 5 mg QHS PRN PO .INSOMNIA Last administered on 11/22/18 23:20; Admin Dose 5 MG; Start 11/16/18 at 19:30 Clotrimazole (Lotrimin Cr) 1 applic BID TOP Last administered on 12/04/18 08:16; Admin Dose 1 APPLIC; Start 11/16/18 at 21:00 Fluticasone/ Vilanterol (Breo Ellipta 100-25 Mcg Inh) 1 inh DAILY INH Last administered on 12/04/18 08:17; Admin Dose 1 INH; Start 11/17/18 at 12:00 Albuterol/ Ipratropium (Duoneb) 3 ml Q4H RESP THERAPY HHN Last administered on 12/04/18 10:16; Admin Dose 3 ML; Start 11/18/18 at 13:00 Metoprolol Tartrate (Lopressor) 5 mg Q4H PRN IV HR>110 Hold SBP<100; Start 11/23/18 at 13:00 IV Flush (NS 10 ml) 10 ml PRN PRN IV IV PROTOCOL; Start 11/24/18 at 16:00 Miscellaneous Information 1 ea NOTE XX Last administered on 11/29/18 12:55; Admin Dose 1 EA; Start 11/24/18 at 20:30 Glucose (Glutose) 15 gm Q15M PRN PO DECREASED GLUCOSE; Start 11/24/18 at 20:30 Glucose (Glutose) 22.5 gm Q15M PRN PO DECREASED GLUCOSE; Start 11/24/18 at 20:30 Dextrose (D50w Syringe) 25 ml Q15M PRN IV DECREASED GLUCOSE Last administered on 11/26/18 01:40; Admin Dose 25 ML; Start 11/24/18 at 20:30 Dextrose (D50w Syringe) 50 ml Q15M PRN IV DECREASED GLUCOSE Last administered on 11/29/18 06:01; Admin Dose 50 ML; Start 11/24/18 at 20:30 Glucagon (Glucagen) 1 mg Q15M PRN IM DECREASED GLUCOSE; Start 11/24/18 at 20:30 Glucose (Glutose) 15 gm Q15M PRN BUCCAL DECREASED GLUCOSE; Start 11/24/18 at 20:30 Insulin Aspart (Novolog Insulin Pen) NOVOLOG *MILD* ALGORITHM WITH MEALS BEDTIME SC Last administered on 12/04/18at 11:56; Admin Dose 3 UNIT; Start 11/28/18 at 11:30 Metoprolol Tartrate (Lopressor) 50 mg BID PO Last administered on 12/04/18at 08:17; Admin Dose 50 MG; Start 11/28/18 at 21:00 Furosemide (Lasix) 40 mg BID DIURETICS IV Last administered on 12/04/18at 05:39; Admin Dose 40 MG; Start 11/30/18 at 18:00 Assessment/Plan Hospital Course (Demo Recall) Assessment 1. Status post acute hypoxemic respiratory failure secondary to volume overload 2. Acute renal failure now hemodialysis dependent 3. History of pulmonary embolus on Eliquis 4. Congestive cardiac failure with aortic stenosis 5. Encephalopathy toxic metabolic now resolving Plan 1. Continue hemodialysis per nephrology 2. Monitor H&H consider iron replacement or Epogen 3. Aspiration precautions 4. Wound care 5. PT evaluation SNF placement. PATTI FRANKS MD, [facility] Dec 04, 2018 12:38
--- NOTE | 2018-12-04 15:27 | CONS ---
Assessment/Plan Assessment/Plan Hospital Course (Demo Recall) Patient is alert feels good Antimicrobial: none Indwelling: Right femoral Noel, Soto catheter. PICC Physical examination: Well-developed morbidly obese -[place] woman who in no distress. Head atraumatic normocephalic sclera nonicteric. Neck is supple. Chest rise symmetrical breath sounds diminished to bases. Heart: S1- S2.. Abdomen obese soft, bowel sounds present. Extremities: Bilateral lower extremities edema erythema and multiple wounds Assessment: 1. Acute hypoxemic respiratory failure secondary to pulmonary edema and CHF exacerbation 2. S/p sepsis, present on admission 3. 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 S/p Urinary tract infection 5. Staph bacteremia consistent with contaminant 6. Morbid obesity 7. Atrial fibrillation 8. Diabetes 9. Acute kidney failure==> HD on hold 7. Pancytopenia Plan: Patient remains stable, off antibiotics, continue present care, will fu prn Consultation Date/Type/Reason Admit Date/Time Nov 16, 2018 at 17:17 Initial Consult Date Type of Consult id Requesting Provider: JABIER SEBASTIAN Date/Time of Note DATE: 12/04/18 TIME: 15:26 Exam/Review of Systems Exam Vitals Vital Signs Date Temp Pulse Resp B/P (MAP) Pulse Ox O2 O2 Flow FiO2 Time Delivery Rate 12/04/18 96 3.0 13:55 12/04/18 79 20 Nasal 13:54 Cannula 12/04/18 98.3 120/58 11:36 (78) Intake and Output 12/03/18 12/03/18 12/04/18 1515:00 23:00 07:00 IntakeIntake Total 750 ml 550 ml OutputOutput Total 1200 ml BalanceBalance -450 ml 550 ml Results Result Diagram: 12/03/18 0550 12/04/18 1129 Results 24hrs Laboratory Tests Test 12/03/18 17:20 12/03/18 20:55 12/04/18 07:44 12/04/18 11:29 Bedside Glucose 218 167 235 H Sodium Level 141 Potassium Level 4.4 Chloride Level 103 Carbon Dioxide Level 32 H Anion Gap 6 Blood Urea Nitrogen 64 H Creatinine 2.13 H Est Glomerular Filtrat Rate mL/min Glucose Level 209 Calcium Level 8.5 Test 12/04/18 11:50 Bedside Glucose 230 H Medications Medication Current Medications IV Flush (NS 3 ml) 3 ml PER PROTOCOL IV ; Start 11/16/18 at 19:30 Ondansetron HCl (Zofran Inj) 4 mg Q6H PRN IV NAUSEA/VOMITING; Start 11/16/18 at 19:30 Acetaminophen (Tylenol Tab) 650 mg Q6H PRN PO .PAIN 1-3 OR TEMP; Start 11/16/18 at 19:30 Acetaminophen/ Hydrocodone Bitart ([place] (5/325)) 1 tab Q6H PRN PO .MOD PAIN 4- 6 Last administered on 11/30/18 00:44; Admin Dose 1 TAB; Start 11/16/18 at 19:30 Docusate Sodium (Colace) 100 mg Q12H PRN PO .CONSTIPATION; Start 11/16/18 at 19:30 Zolpidem Tartrate (Ambien) 5 mg QHS PRN PO .INSOMNIA Last administered on 11/22/18 23:20; Admin Dose 5 MG; Start 11/16/18 at 19:30 Clotrimazole (Lotrimin Cr) 1 applic BID TOP Last administered on 12/04/18 08:16; Admin Dose 1 APPLIC; Start 11/16/18 at 21:00 Fluticasone/ Vilanterol (Breo Ellipta 100-25 Mcg Inh) 1 inh DAILY INH Last administered on 12/04/18 08:17; Admin Dose 1 INH; Start 11/17/18 at 12:00 Albuterol/ Ipratropium (Duoneb) 3 ml Q4H RESP THERAPY HHN Last administered on 12/04/18 13:49; Admin Dose 3 ML; Start 11/18/18 at 13:00 Metoprolol Tartrate (Lopressor) 5 mg Q4H PRN IV HR>110 Hold SBP<100; Start 11/23/18 at 13:00 IV Flush (NS 10 ml) 10 ml PRN PRN IV IV PROTOCOL; Start 11/24/18 at 16:00 Miscellaneous Information 1 ea NOTE XX Last administered on 11/29/18at 12:55; Admin Dose 1 EA; Start 11/24/18 at 20:30 Glucose (Glutose) 15 gm Q15M PRN PO DECREASED GLUCOSE; Start 11/24/18 at 20:30 Glucose (Glutose) 22.5 gm Q15M PRN PO DECREASED GLUCOSE; Start 11/24/18 at 20:30 Dextrose (D50w Syringe) 25 ml Q15M PRN IV DECREASED GLUCOSE Last administered on 11/26/18at 01:40; Admin Dose 25 ML; Start 11/24/18 at 20:30 Dextrose (D50w Syringe) 50 ml Q15M PRN IV DECREASED GLUCOSE Last administered on 11/29/18at 06:01; Admin Dose 50 ML; Start 11/24/18 at 20:30 Glucagon (Glucagen) 1 mg Q15M PRN IM DECREASED GLUCOSE; Start 11/24/18 at 20:30 Glucose (Glutose) 15 gm Q15M PRN BUCCAL DECREASED GLUCOSE; Start 11/24/18 at 20:30 Insulin Aspart (Novolog Insulin Pen) NOVOLOG *MILD* ALGORITHM WITH MEALS BEDTIME SC Last administered on 12/04/18at 11:56; Admin Dose 3 UNIT; Start 11/28/18 at 11:30 Metoprolol Tartrate (Lopressor) 50 mg BID PO Last administered on 12/04/18at 08:17; Admin Dose 50 MG; Start 11/28/18 at 21:00 Furosemide (Lasix) 40 mg BID DIURETICS IV Last administered on 12/04/18at 05:39; Admin Dose 40 MG; Start 11/30/18 at 18:00 ROCHELLE STERLING NP Dec 04, 2018 15:27
--- NOTE | 2018-12-04 15:38 | CONS ---
Assessment/Plan Assessment/Plan Hospital Course (Demo Recall) IMP: 1.AF with mild RVR-rate controlled on current dose of BB 2.Renal failure 3.hyperkalemia 4.Bradycardia 5.CHF-diastolic acute on chronic EF 50% by echo this admit 6.HTN 7.-mod to severe by echo 08/09 8. Hematuria Recc: -ICU -Now DNI -IVP PRN BB -Continue current PO BB dose -Continue asa as tolerated for prevention of thromboembolic complications as not able to remain on heparin due to hematuria and worsening anemia with possible need to hold given worsening anemia -Still holding heparin given hematuria which has resolved but now worsening anemia -Continue abx's and f/u cx data -Follow MS -HD now held and would follow volume status closely on lasix IV BID Consultation Date/Type/Reason Admit Date/Time Nov 16, 2018 at 17:17 Initial Consult Date 11/20/18 Type of Consult Cardiology Reason for Consultation AF Requesting Provider: JABIER SEBASTIAN Date/Time of Note DATE: 12/04/18 TIME: 15:36 Exam/Review of Systems Vital Signs Vitals Vital Signs Date Temp Pulse Resp B/P (MAP) Pulse Ox O2 O2 Flow FiO2 Time Delivery Rate 12/04/18 96 3.0 13:55 12/04/18 79 20 Nasal 13:54 Cannula 12/04/18 98.3 120/58 11:36 (78) Intake and Output 12/03/18 12/03/18 12/04/18 1515:00 23:00 07:00 IntakeIntake Total 750 ml 550 ml OutputOutput Total 1200 ml BalanceBalance -450 ml 550 ml Exam Exam Review of Systems: CONSTITUTIONAL: No fevers, chills. PULMONARY: No sob CARDIOVASCULAR: No chest pain/palpitations GASTROINTESTINAL: No nausea/vomiting. GENITOURINARY: No hematuria/dysuria. MUSCULOSKELETAL: No myagias/arthalgias. PSYCHIATRIC: The patient denies depression. NEUROLOGIC: No weakness Constitutional: alert Psych: no complaints Head: normocephalic ENMT: mucosa pink and moist Neck: supple, jvd (9 cm water) Respiratory: clear to auscultation Cardiovascular: regular rate and rhythm Gastrointestinal: soft, non-tender Musculoskeletal: muscle tone (normal) Extremities: edema (none) Neurological: other (No focal deficits) Labs Result Diagram: 12/03/18 0550 12/04/18 1129 Results 24hrs Laboratory Tests Test 12/03/18 17:20 12/03/18 20:55 12/04/18 07:44 12/04/18 11:29 Bedside Glucose 218 167 235 H Sodium Level 141 Potassium Level 4.4 Chloride Level 103 Carbon Dioxide Level 32 H Anion Gap 6 Blood Urea Nitrogen 64 H Creatinine 2.13 H Est Glomerular Filtrat Rate mL/min Glucose Level 209 Calcium Level 8.5 Test 12/04/18 11:50 Bedside Glucose 230 H Medications Medications Current Medications IV Flush (NS 3 ml) 3 ml PER PROTOCOL IV ; Start 11/16/18 at 19:30 Ondansetron HCl (Zofran Inj) 4 mg Q6H PRN IV NAUSEA/VOMITING; Start 11/16/18 at 19:30 Acetaminophen (Tylenol Tab) 650 mg Q6H PRN PO .PAIN 1-3 OR TEMP; Start 11/16/18 at 19:30 Acetaminophen/ Hydrocodone Bitart ([place] (5/325)) 1 tab Q6H PRN PO .MOD PAIN 4- 6 Last administered on 11/30/18at 00:44; Admin Dose 1 TAB; Start 11/16/18 at 19:30 Docusate Sodium (Colace) 100 mg Q12H PRN PO .CONSTIPATION; Start 11/16/18 at 19:30 Zolpidem Tartrate (Ambien) 5 mg QHS PRN PO .INSOMNIA Last administered on 11/22/18at 23:20; Admin Dose 5 MG; Start 11/16/18 at 19:30 Clotrimazole (Lotrimin Cr) 1 applic BID TOP Last administered on 12/04/18at 08:16; Admin Dose 1 APPLIC; Start 11/16/18 at 21:00 Fluticasone/ Vilanterol (Breo Ellipta 100-25 Mcg Inh) 1 inh DAILY INH Last administered on 12/04/18at 08:17; Admin Dose 1 INH; Start 11/17/18 at 12:00 Albuterol/ Ipratropium (Duoneb) 3 ml Q4H RESP THERAPY HHN Last administered on 12/04/18at 13:49; Admin Dose 3 ML; Start 11/18/18 at 13:00 Metoprolol Tartrate (Lopressor) 5 mg Q4H PRN IV HR>110 Hold SBP<100; Start 11/23/18 at 13:00 IV Flush (NS 10 ml) 10 ml PRN PRN IV IV PROTOCOL; Start 11/24/18 at 16:00 Miscellaneous Information 1 ea NOTE XX Last administered on 11/29/18at 12:55; Admin Dose 1 EA; Start 11/24/18 at 20:30 Glucose (Glutose) 15 gm Q15M PRN PO DECREASED GLUCOSE; Start 11/24/18 at 20:30 Glucose (Glutose) 22.5 gm Q15M PRN PO DECREASED GLUCOSE; Start 11/24/18 at 20:30 Dextrose (D50w Syringe) 25 ml Q15M PRN IV DECREASED GLUCOSE Last administered on 11/26/18at 01:40; Admin Dose 25 ML; Start 11/24/18 at 20:30 Dextrose (D50w Syringe) 50 ml Q15M PRN IV DECREASED GLUCOSE Last administered on 11/29/18at 06:01; Admin Dose 50 ML; Start 11/24/18 at 20:30 Glucagon (Glucagen) 1 mg Q15M PRN IM DECREASED GLUCOSE; Start 11/24/18 at 20:30 Glucose (Glutose) 15 gm Q15M PRN BUCCAL DECREASED GLUCOSE; Start 11/24/18 at 20:30 Insulin Aspart (Novolog Insulin Pen) NOVOLOG *MILD* ALGORITHM WITH MEALS BEDTIME SC Last administered on 12/04/18 11:56; Admin Dose 3 UNIT; Start 11/28/18 at 11:30 Metoprolol Tartrate (Lopressor) 50 mg BID PO Last administered on 12/04/18 08:17; Admin Dose 50 MG; Start 11/28/18 at 21:00 Furosemide (Lasix) 40 mg BID DIURETICS IV Last administered on 12/04/18 05:39; Admin Dose 40 MG; Start 11/30/18 at 18:00 GHASSAN SHERMAN 15, 2019 15:38
[2018-12-05] VITALS (11 sets, daily range): BP systolic 122–133; BP diastolic 53–76; PULSE 72–97; RESP 17–21
[2018-12-05] MEDS: ALBUTEROL/IPRATROPIUM (NEB) 3 ML AMP HHN SCH ×6 (01:03→19:50)
[2018-12-05] MEDS: FUROSEMIDE 40 MG INJ IV SCH ×2 (06:56→17:18)
[2018-12-05] MEDS: FLUTICASONE/VILANTEROL 100-25 INH SCH (08:13)
[2018-12-05] MEDS: CLOTRIMAZOLE 1% 30 GM CR TOP SCH ×2 (08:14→20:05)
[2018-12-05] MEDS: METOPROLOL 50 MG TAB PO SCH ×2 (08:14→20:04)
[2018-12-05] MEDS: INSULIN ASPART [NOVOLOG] 3 ML PEN SC SCH ×4 (08:21→20:04)
--- NOTE | 2018-12-05 10:03 | PN ---
Date/Time of Note Date/Time of Note DATE: 12/05/18 TIME: 10:01 Assessment/Plan VTE Prophylaxis Risk score (from Nsg)>0 risk: 3 SCD applied (from Nsg): Yes Pharmacological prophylaxis: other Lines/Catheters IV Catheter Type (from Nrsg): PICC Line Central line still needed: Yes Urinary Cath still in place: No Assessment/Plan Hospital Course renal follow up SUBJECTIVE: all noted. d/w DR Singh no fever, chills, new rash, hematuria, melena, vomiting, chest pain, tachypnea, diaphoresis renal function is stable pancytopenia noted OBJECTIVE: HEENT: Head is normocephalic. NECK: Supple. HEART: Regular rate. LUNGS: Show diminished breath sounds at the base. ABDOMEN: Soft, nontender to palpation without rebound or guarding. EXTREMITIES: Negative for clubbing, cyanosis. Positive edema. DERMATOLOGIC: No rashes. MUSCULOSKELETAL: No joint effusion. NEUROLOGIC: No change in exam. MEDICATIONS: The patient's medications have been reviewed. 1. Nonoliguric acute kidney injury on top of chronic kidney disease with previous baseline creatinine of 1.5 mg/dL. Etiology of acute kidney injury is secondary to hemodynamics, possible tubular injury. The patient was initiated on dialysis. However, has been showing signs of renal recovery. The patient had excellent urinary output. The patient's Soto catheter; however, has been removed. Continue diuretics. Anticipate removing germaine catheter. 2. Volume overload secondary to congestive heart failure. Continue diuretic therapy. Continue diuretics 3. Anemia. Continue to monitor hemoglobin and hematocrit levels. 4. Mineral bone disorder, monitor calcium and phosphorus levels. 5. Acute respiratory failure secondary to congestive heart failure, reactive airway disease. Continue current medical management, supplemental oxygen. Continue diuretic therapy. 6. Atrial fibrillation. Continue current treatment plan. 7. Diabetes. Continue current insulin regimen. 8. Acute encephalopathy, etiology is toxic metabolic. 9. Aortic stenosis. Continue to monitor. Result Diagram: 12/05/18 0509 12/05/18 0509 Results 24hrs Laboratory Tests Test 12/04/18 11:29 12/04/18 11:50 12/04/18 17:51 12/04/18 21:58 Sodium Level 141 Potassium Level 4.4 Chloride Level 103 Carbon Dioxide Level 32 H Anion Gap 6 Blood Urea Nitrogen 64 H Creatinine 2.13 H Est Glomerular Filtrat Rate mL/min Glucose Level 209 Calcium Level 8.5 Bedside Glucose 230 H 163 182 Test 12/05/18 02:31 12/05/18 05:09 Bedside Glucose 183 White Blood Count 4.7 L Red Blood Count 2.81 L Hemoglobin 6.6 *L Hematocrit 21.4 L Mean Corpuscular 76.2 L Volume Mean Corpuscular 23.5 L Hemoglobin Mean Corpuscular 30.8 L Hemoglobin Concent Red Cell 19.8 H Distribution Width Platelet Count 55 #L Mean Platelet Volume Immature 0.600 H Granulocytes % Neutrophils % 72.9 Lymphocytes % 14.6 L Monocytes % 10.4 Eosinophils % 1.3 Basophils % 0.2 Nucleated Red Blood 0.0 Cells % Immature 0.030 Granulocytes # Neutrophils # 3.4 Lymphocytes # 0.7 L Monocytes # 0.5 Eosinophils # 0.1 Basophils # 0.0 Nucleated Red Blood 0.0 Cells # Sodium Level 139 Potassium Level 4.2 Chloride Level 100 Carbon Dioxide Level 32 H Anion Gap 7 Blood Urea Nitrogen 69 H Creatinine 2.07 H Est Glomerular Filtrat Rate mL/min Glucose Level 171 Calcium Level 8.6 Phosphorus Level 2.8 Magnesium Level 1.8 Exam/Review of Systems Exam Vitals Vital Signs Date Temp Pulse Resp B/P (MAP) Pulse Ox O2 O2 Flow FiO2 Time Delivery Rate 12/05/18 85 08:00 12/05/18 Nasal 4.0 07:40 Cannula 12/05/18 97.7 18 133/76 100 07:15 (95) Intake and Output 12/04/18 12/04/18 12/05/18 1515:00 23:00 07:00 IntakeIntake Total 650 ml BalanceBalance 650 ml Results Results 24hrs Laboratory Tests Test 12/04/18 11:29 12/04/18 11:50 12/04/18 17:51 12/04/18 21:58 Sodium Level 141 Potassium Level 4.4 Chloride Level 103 Carbon Dioxide Level 32 H Anion Gap 6 Blood Urea Nitrogen 64 H Creatinine 2.13 H Est Glomerular Filtrat Rate mL/min Glucose Level 209 Calcium Level 8.5 Bedside Glucose 230 H 163 182 Test 12/05/18 02:31 12/05/18 05:09 Bedside Glucose 183 White Blood Count 4.7 L Red Blood Count 2.81 L Hemoglobin 6.6 *L Hematocrit 21.4 L Mean Corpuscular 76.2 L Volume Mean Corpuscular 23.5 L Hemoglobin Mean Corpuscular 30.8 L Hemoglobin Concent Red Cell 19.8 H Distribution Width Platelet Count 55 #L Mean Platelet Volume Immature 0.600 H Granulocytes % Neutrophils % 72.9 Lymphocytes % 14.6 L Monocytes % 10.4 Eosinophils % 1.3 Basophils % 0.2 Nucleated Red Blood 0.0 Cells % Immature 0.030 Granulocytes # Neutrophils # 3.4 Lymphocytes # 0.7 L Monocytes # 0.5 Eosinophils # 0.1 Basophils # 0.0 Nucleated Red Blood 0.0 Cells # Sodium Level 139 Potassium Level 4.2 Chloride Level 100 Carbon Dioxide Level 32 H Anion Gap 7 Blood Urea Nitrogen 69 H Creatinine 2.07 H Est Glomerular Filtrat Rate mL/min Glucose Level 171 Calcium Level 8.6 Phosphorus Level 2.8 Magnesium Level 1.8 Medications Medication Current Medications IV Flush (NS 3 ml) 3 ml PER PROTOCOL IV ; Start 11/16/18 at 19:30 Ondansetron HCl (Zofran Inj) 4 mg Q6H PRN IV NAUSEA/VOMITING; Start 11/16/18 at 19:30 Acetaminophen (Tylenol Tab) 650 mg Q6H PRN PO .PAIN 1-3 OR TEMP; Start 11/16/18 at 19:30 Acetaminophen/ Hydrocodone Bitart ([place] (5/325)) 1 tab Q6H PRN PO .MOD PAIN 4- 6 Last administered on 11/30/18 00:44; Admin Dose 1 TAB; Start 11/16/18 at 19:30 Docusate Sodium (Colace) 100 mg Q12H PRN PO .CONSTIPATION; Start 11/16/18 at 19:30 Zolpidem Tartrate (Ambien) 5 mg QHS PRN PO .INSOMNIA Last administered on 11/22/18 23:20; Admin Dose 5 MG; Start 11/16/18 at 19:30 Clotrimazole (Lotrimin Cr) 1 applic BID TOP Last administered on 12/05/18 08:14; Admin Dose 1 APPLIC; Start 11/16/18 at 21:00 Fluticasone/ Vilanterol (Breo Ellipta 100-25 Mcg Inh) 1 inh DAILY INH Last administered on 12/05/18 08:13; Admin Dose 1 INH; Start 11/17/18 at 12:00 Albuterol/ Ipratropium (Duoneb) 3 ml Q4H RESP THERAPY HHN Last administered on 12/05/18 04:21; Admin Dose 3 ML; Start 11/18/18 at 13:00 Metoprolol Tartrate (Lopressor) 5 mg Q4H PRN IV HR>110 Hold SBP<100; Start at 13:00 IV Flush (NS 10 ml) 10 ml PRN PRN IV IV PROTOCOL; Start 11/24/18 at 16:00 Miscellaneous Information 1 ea NOTE XX Last administered on 11/29/18 12:55; Admin Dose 1 EA; Start 11/24/18 at 20:30 Glucose (Glutose) 15 gm Q15M PRN PO DECREASED GLUCOSE; Start 11/24/18 at 20:30 Glucose (Glutose) 22.5 gm Q15M PRN PO DECREASED GLUCOSE; Start 11/24/18 at 20:30 Dextrose (D50w Syringe) 25 ml Q15M PRN IV DECREASED GLUCOSE Last administered on 11/26/18at 01:40; Admin Dose 25 ML; Start 11/24/18 at 20:30 Dextrose (D50w Syringe) 50 ml Q15M PRN IV DECREASED GLUCOSE Last administered on 11/29/18 06:01; Admin Dose 50 ML; Start 11/24/18 at 20:30 Glucagon (Glucagen) 1 mg Q15M PRN IM DECREASED GLUCOSE; Start 11/24/18 at 20:30 Glucose (Glutose) 15 gm Q15M PRN BUCCAL DECREASED GLUCOSE; Start 11/24/18 at 20:30 Insulin Aspart (Novolog Insulin Pen) NOVOLOG *MILD* ALGORITHM WITH MEALS BEDTIME SC Last administered on 12/05/18 08:21; Admin Dose 1 UNIT; Start 11/28/18 at 11:30 Metoprolol Tartrate (Lopressor) 50 mg BID PO Last administered on 12/05/18 08:14; Admin Dose 50 MG; Start 11/28/18 at 21:00 Furosemide (Lasix) 40 mg BID DIURETICS IV Last administered on 12/05/18 06:56; Admin Dose 40 MG; Start 11/30/18 at 18:00 COURTNEY TAY DO Dec 05, 2018 10:03
--- NOTE | 2018-12-05 12:35 | CONS ---
Assessment/Plan Assessment/Plan Hospital Course (Demo Recall) ID PROGRESS NOTE CURRENT ABX: DAY # OFF ABX s/p Zyvox, Cefepime, Diflucan 12/05/18 0509 12/05/18 0509 24H INTERVAL SUMMARY * Awake, alert, responsive, course BS on supplemental O2 via NC -- subjective dyspnea off O2 * No fevers, VSS, ON LASIX FOR PULMONARY EDEMA DIAGNOSTIC IMAGING * 12/05/18 CXR: Worsening right lung consolidation and effusion. Left basilar infiltrate or atelectasis unchanged. Question failure versus pneumonia. MICRO/OTHER * 11/18/18 REPEAT bcx (-) * aDMISSION Blood culture + Staph 1 out of 2 sets, Organism 1 COAGULASE NEGATIVE STAPH * 11/18/18 urine culture URINE CULTURE Final Organism 1 KOLTON GLABRATA COLONY COUNT 10,000 - 20,000 CFU/ml * Left lower extremity woundWOUND CULTURE Final Organism 1 ENTEROBACTER CLOACAE COMPLEX QUANTITY 2+ Organism 2 KLEBSIELLA OXYTOCA QUANTITY 1+ Organism 3 COAGULASE NEGATIVE STAPH QUANTITY ISOLATED FROM BROTH ONLY Organism 4 ALPHA HEMOLYTIC STREP SPP QUANTITY ISOLATED FROM BROTH ONLY . [facility] EC COMPLEX KLEB OXYTO COAG NEG M.I.C. RX M.I.C. RX M.I.C. RX --------- --- --------- --- --------- --- CEFAZOLIN R S CEFOTAXIME S S CIPROFLOXACIN <=0.25 S <=0.25 S <=0.5 S CLINDAMYCIN 1 I DOXYCYCLINE S ERYTHROMYCIN <=0.25 S GENTAMICIN <=1 S <=1 S LEVOFLOXACIN <=0.12 S <=0.12 S 0.5 S OXACILLIN 2 S PENICILLIN PENICILLIN-G R RIFAMPIN <=0.5 S VANCOMYCIN <=0.5 S TOBRAMYCIN <=1 S <=1 S TRIMETHOPRIM/SULFAMETHOXAZOLE <=20 S <=20 S <=10 S ALPHA HEMO M.I.C. RX --------- --- CEFAZOLIN CEFOTAXIME 0.064 S CIPROFLOXACIN CLINDAMYCIN DOXYCYCLINE ERYTHROMYCIN GENTAMICIN LEVOFLOXACIN OXACILLIN PENICILLIN 0.032 S PENICILLIN-G RIFAMPIN VANCOMYCIN 1 S TOBRAMYCIN TRIMETHOPRIM/SULFAMETHOXAZOLE ALPHA HEMO Zone Size RX --------- --- * CLINDAMYCIN S * ERYTHROMYCIN S * * PHYSICAL EXAMINATION: GENERAL: VSS, obese, mild dyspnea on O2 via NC HEENT: AT, NC, anicteric NECK: Supple, CHEST: Equal chest rise bilaterally, course BS HEART: Pulse RRR ABDOMEN: Soft / NT EXTREMITIES: Warm, Bilateral lower extremities edema erythema and multiple wounds, left more than right SKIN: No rash, no diaphoresis ID ASSESSMENT 83 yo F admit with: 1. Sepsis, present on admission 2. Bacteremia cw contaminant 3. 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 Urinary tract infection 5. Acute hypoxemic respiratory failure secondary to pulmonary edema and CHF exacerbation, poss PNA 6. Morbid obesity 7. Atrial fibrillation 8. Diabetes 9. Acute kidney failure (-)MRSA Nares ABX ALLERGIES: KNDA INVASIVES: PIV, FC CURRENT ABX: DAY # OFF ABX s/p Zyvox, Cefepime, Diflucan ID RECOMMENDATIONS/PLAN: 1. Continue to monitor OFF ABX 2. She remains on diuretics for pulmonary congestion/edema . Consultation Date/Type/Reason Admit Date/Time Nov 16, 2018 at 17:17 Initial Consult Date Requesting Provider: JABIER SEBASTIAN Date/Time of Note DATE: 12/05/18 TIME: 12:30 Exam/Review of Systems Exam Vitals Vital Signs Date Temp Pulse Resp B/P (MAP) Pulse Ox O2 O2 Flow FiO2 Time Delivery Rate 12/05/18 80 12:00 12/05/18 97.6 18 129/58 99 11:31 (81) 12/05/18 Nasal 4.0 08:00 Cannula Intake and Output 12/04/18 12/04/18 12/05/18 1414:59 22:59 06:59 IntakeIntake Total 650 ml BalanceBalance 650 ml Results Result Diagram: 12/05/18 0509 12/05/18 0509 Results 24hrs Laboratory Tests Test 12/04/18 17:51 12/04/18 21:58 12/05/18 02:31 12/05/18 05:09 Bedside Glucose 163 182 183 White Blood Count 4.7 L Red Blood Count 2.81 L Hemoglobin 6.6 *L Hematocrit 21.4 L Mean Corpuscular 76.2 L Volume Mean Corpuscular 23.5 L Hemoglobin Mean Corpuscular 30.8 L Hemoglobin Concent Red Cell 19.8 H Distribution Width Platelet Count 55 #L Mean Platelet Volume Immature 0.600 H Granulocytes % Neutrophils % 72.9 Lymphocytes % 14.6 L Monocytes % 10.4 Eosinophils % 1.3 Basophils % 0.2 Nucleated Red Blood 0.0 Cells % Immature 0.030 Granulocytes # Neutrophils # 3.4 Lymphocytes # 0.7 L Monocytes # 0.5 Eosinophils # 0.1 Basophils # 0.0 Nucleated Red Blood 0.0 Cells # Sodium Level 139 Potassium Level 4.2 Chloride Level 100 Carbon Dioxide Level 32 H Anion Gap 7 Blood Urea Nitrogen 69 H Creatinine 2.07 H Est Glomerular Filtrat Rate mL/min Glucose Level 171 Calcium Level 8.6 Phosphorus Level 2.8 Magnesium Level 1.8 Test 12/05/18 11:46 Bedside Glucose 214 Medications Medication Current Medications IV Flush (NS 3 ml) 3 ml PER PROTOCOL IV ; Start 11/16/18 at 19:30 Ondansetron HCl (Zofran Inj) 4 mg Q6H PRN IV NAUSEA/VOMITING; Start 11/16/18 at 19:30 Acetaminophen (Tylenol Tab) 650 mg Q6H PRN PO .PAIN 1-3 OR TEMP; Start 11/16/18 at 19:30 Acetaminophen/ Hydrocodone Bitart ([place] (5/325)) 1 tab Q6H PRN PO .MOD PAIN 4- 6 Last administered on 11/30/18at 00:44; Admin Dose 1 TAB; Start 11/16/18 at 19:30 Docusate Sodium (Colace) 100 mg Q12H PRN PO .CONSTIPATION; Start 11/16/18 at 19:30 Zolpidem Tartrate (Ambien) 5 mg QHS PRN PO .INSOMNIA Last administered on 11/22/18at 23:20; Admin Dose 5 MG; Start 11/16/18 at 19:30 Clotrimazole (Lotrimin Cr) 1 applic BID TOP Last administered on 12/05/18at 08:14; Admin Dose 1 APPLIC; Start 11/16/18 at 21:00 Fluticasone/ Vilanterol (Breo Ellipta 100-25 Mcg Inh) 1 inh DAILY INH Last administered on 12/05/18at 08:13; Admin Dose 1 INH; Start 11/17/18 at 12:00 Albuterol/ Ipratropium (Duoneb) 3 ml Q4H RESP THERAPY HHN Last administered on 12/05/18 04:21; Admin Dose 3 ML; Start 11/18/18 at 13:00 Metoprolol Tartrate (Lopressor) 5 mg Q4H PRN IV HR>110 Hold SBP<100; Start 11/23/18 at 13:00 IV Flush (NS 10 ml) 10 ml PRN PRN IV IV PROTOCOL; Start 11/24/18 at 16:00 Miscellaneous Information 1 ea NOTE XX Last administered on 11/29/18at 12:55; Admin Dose 1 EA; Start 11/24/18 at 20:30 Glucose (Glutose) 15 gm Q15M PRN PO DECREASED GLUCOSE; Start 11/24/18 at 20:30 Glucose (Glutose) 22.5 gm Q15M PRN PO DECREASED GLUCOSE; Start 11/24/18 at 20:30 Dextrose (D50w Syringe) 25 ml Q15M PRN IV DECREASED GLUCOSE Last administered on 11/26/18at 01:40; Admin Dose 25 ML; Start 11/24/18 at 20:30 Dextrose (D50w Syringe) 50 ml Q15M PRN IV DECREASED GLUCOSE Last administered on 11/29/18 06:01; Admin Dose 50 ML; Start 11/24/18 at 20:30 Glucagon (Glucagen) 1 mg Q15M PRN IM DECREASED GLUCOSE; Start 11/24/18 at 20:30 Glucose (Glutose) 15 gm Q15M PRN BUCCAL DECREASED GLUCOSE; Start 11/24/18 at 20:30 Insulin Aspart (Novolog Insulin Pen) NOVOLOG *MILD* ALGORITHM WITH MEALS BEDTIME SC Last administered on 12/05/18at 08:21; Admin Dose 1 UNIT; Start 11/28/18 at 11:30 Metoprolol Tartrate (Lopressor) 50 mg BID PO Last administered on 12/05/18 08:14; Admin Dose 50 MG; Start 11/28/18 at 21:00 Furosemide (Lasix) 40 mg BID DIURETICS IV Last administered on 12/05/18 06:5 6; Admin Dose 40 MG; Start 11/30/18 at 18:00 DULCE MCKINNEY NP Dec 05, 2018 12:35
[2018-12-05] MEDS ORDERED: SOD CHLORIDE 0.9% 250 ML IV* ONE (13:51)
--- NOTE | 2018-12-05 14:09 | CONS ---
Consult Date/Type/Reason Admit Date/Time Nov 16, 2018 at 17:17 Initial Consult Date Type of Consultation: Pulm Requesting Provider: JABIER SEBASTIAN Date/Time of Note DATE: 12/05/18 TIME: 14:05 Subjective NO acute events - pt with some fluid overload - uncomfortable - Le wounds - wound care now - con't to optimize fluid status as tolerated. ROS: No fever, no chills, no nausea, no vomiting, no diarrhea/constipation + SOB, + fatigue Objective Vitals Vital Signs Date Temp Pulse Resp B/P (MAP) Pulse Ox O2 O2 Flow FiO2 Time Delivery Rate 12/05/18 Nasal 3.0 13:52 Cannula 12/05/18 80 12:00 12/05/18 97.6 18 129/58 99 11:31 (81) Intake and Output 12/04/18 12/04/18 12/05/18 1515:00 23:00 07:00 IntakeIntake Total 650 ml BalanceBalance 650 ml Exam General: WN/WD/NAD, AOx 2-3 HEENT: Unicetric/atraumatic/EOMI (follow commands) NECK: JVD elevated, no thyromegaly Lymph: no lymphadenopathy HEART: regular with no S3, II/ systolic murmur at apex, 2/6 m at base LUNGS: Coarse sounds ABD: soft, NT, ND, +BS : Intact Neuro: non focal SKIN: chronic changes EXT: 2+ edema, wounds Results/Medications Result Diagram: 12/05/18 0509 12/05/18 0509 Results 24 hrs Laboratory Tests Test 12/04/18 17:51 12/04/18 21:58 12/05/18 02:31 12/05/18 05:09 Bedside Glucose 163 182 183 White Blood Count 4.7 L Red Blood Count 2.81 L Hemoglobin 6.6 *L Hematocrit 21.4 L Mean Corpuscular 76.2 L Volume Mean Corpuscular 23.5 L Hemoglobin Mean Corpuscular 30.8 L Hemoglobin Concent Red Cell 19.8 H Distribution Width Platelet Count 55 #L Mean Platelet Volume Immature 0.600 H Granulocytes % Neutrophils % 72.9 Lymphocytes % 14.6 L Monocytes % 10.4 Eosinophils % 1.3 Basophils % 0.2 Nucleated Red Blood 0.0 Cells % Immature 0.030 Granulocytes # Neutrophils # 3.4 Lymphocytes # 0.7 L Monocytes # 0.5 Eosinophils # 0.1 Basophils # 0.0 Nucleated Red Blood 0.0 Cells # Sodium Level 139 Potassium Level 4.2 Chloride Level 100 Carbon Dioxide Level 32 H Anion Gap 7 Blood Urea Nitrogen 69 H Creatinine 2.07 H Est Glomerular Filtrat Rate mL/min Glucose Level 171 Calcium Level 8.6 Phosphorus Level 2.8 Magnesium Level 1.8 Test 12/05/18 11:46 Bedside Glucose 214 Home Meds Active Scripts Furosemide* (Furosemide*) 40 Mg Tablet, 40 MG PO DAILY, #30 TAB Prov:DAVID RAUSCH NP 08/09/18 Clotrimazole* (Lotrimin*) 1%-30 Gm Cream..g., 1 APPLIC TOP BID, #1 TUB Please apply to the right lower extremity wound twice daily. Prov:DAVID RAUSCH NP 08/09/18 Insulin Glargine,Hum.rec.anlog (Basaglar Kwikpen U-100) 100 Unit/1 Ml Insuln.pen, 5 UNIT SC DAILY for 30 Days, #1 EA Prov:RAMIRO MORRIS MD 04/05/18 Linagliptin (TRADJENTA) 5 Mg Tablet, 5 MG PO DAILY for 30 Days, #30 TAB Prov:RAMIRO MORRIS MD 04/05/18 Insulin Aspart* (Novolog Insulin Pen*) 100 Unit/Ml Soln, 10 UNIT SC WITH LUNCH for 30 Days, #1 EA Prov:RAMIRO MORRIS MD 04/05/18 Insulin Aspart* (Novolog Insulin Pen*) 100 Unit/Ml Soln, 10 UNIT SC WITH DINNER for 30 Days, #1 EA Prov:RAMIRO MORRIS MD 04/05/18 Insulin Aspart* (Novolog Insulin Pen*) 100 Unit/Ml Soln, 6 UNIT SC WITH BREAKFAST for 30 Days, #1 EA Prov:RAMIRO MORRIS MD 04/05/18 Fluticasone-Vilanterol (Breo Ellipta Inhaler) 100-25 Mcg/Actuation Aer.pow.ba, 1 INH INH DAILY for 30 Days, #1 EA Prov:RAMIRO MORRIS MD 04/05/18 Aspirin (Aspirin) 81 Mg Chew, 81 MG PO DAILY for 30 Days, #30 TAB Prov:RAMIRO MORRIS MD 04/05/18 Metoprolol Tartrate* (Lopressor*) 25 Mg Tab, 75 MG PO BID for 30 Days, #60 TAB Prov:RAMIRO MORRIS MD 04/05/18 Hydralazine Hcl* (Apresoline*) 50 Mg Tab, 50 MG PO Q8 for 30 Days, #90 TAB Prov:RAMIRO MORRIS MD 04/05/18 Diltiazem Hcl* (Cardizem CD*) 120 Mg Cap.sr.24h, 120 MG PO BID for 30 Days, #60 TAB Prov:RAMIRO MORRIS MD 04/05/18 Apixaban* (Eliquis*) 5 Mg Tablet, 2.5 MG PO BID for 30 Days, #60 TAB Prov:RAMIRO MORRIS MD 04/05/18 Tiotropium [place]* (Spiriva*) 18 Mcg Cap.w.dev, 1 INH INH DAILY for 30 Days, #30 CAP Prov:RAMIRO MORRIS MD 04/05/18 Psyllium Husk (Metamucil) 0.52 Gm Capsule, 0.52 GM PO DAILY for 30 Days, #30 CAP Prov:RAMIRO MORRIS MD 04/19/17 Digoxin* (Digitek*) 0.125 Mg Tab, 0.125 MG PO DAILY@13, #30 3 Refills Prov:DALLAS PICKETT 03/22/15 Reported Medications Albuterol Sulfate* (Proair HFA*) 8.5 Gm Hfa.aer.ad, 2 PUFF INH Q6H PRN for WHEEZING AND SOB, INH 03/16/15 Omeprazole* (Omeprazole*) 20 Mg Capsule.dr, 20 MG PO DAILY, CAP 03/16/15 Medications Current Medications IV Flush (NS 3 ml) 3 ml PER PROTOCOL IV ; Start 11/16/18 at 19:30 Ondansetron HCl (Zofran Inj) 4 mg Q6H PRN IV NAUSEA/VOMITING; Start 11/16/18 at 19:30 Acetaminophen (Tylenol Tab) 650 mg Q6H PRN PO .PAIN 1-3 OR TEMP; Start 11/16/18 at 19:30 Acetaminophen/ Hydrocodone Bitart ([place] (5/325)) 1 tab Q6H PRN PO .MOD PAIN 4- 6 Last administered on 11/30/18at 00:44; Admin Dose 1 TAB; Start 11/16/18 at 19:30 Docusate Sodium (Colace) 100 mg Q12H PRN PO .CONSTIPATION; Start 11/16/18 at 19:30 Zolpidem Tartrate (Ambien) 5 mg QHS PRN PO .INSOMNIA Last administered on 11/22/18 23:20; Admin Dose 5 MG; Start 11/16/18 at 19:30 Clotrimazole (Lotrimin Cr) 1 applic BID TOP Last administered on 12/05/18 08:14; Admin Dose 1 APPLIC; Start 11/16/18 at 21:00 Fluticasone/ Vilanterol (Breo Ellipta 100-25 Mcg Inh) 1 inh DAILY INH Last administered on 12/05/18 08:13; Admin Dose 1 INH; Start 11/17/18 at 12:00 Albuterol/ Ipratropium (Duoneb) 3 ml Q4H RESP THERAPY HHN Last administered on 12/05/18 04:21; Admin Dose 3 ML; Start 11/18/18 at 13:00 Metoprolol Tartrate (Lopressor) 5 mg Q4H PRN IV HR>110 Hold SBP<100; Start 11/23/18 at 13:00 IV Flush (NS 10 ml) 10 ml PRN PRN IV IV PROTOCOL; Start 11/24/18 at 16:00 Miscellaneous Information 1 ea NOTE XX Last administered on 11/29/18at 12:55; Admin Dose 1 EA; Start 11/24/18 at 20:30 Glucose (Glutose) 15 gm Q15M PRN PO DECREASED GLUCOSE; Start 11/24/18 at 20:30 Glucose (Glutose) 22.5 gm Q15M PRN PO DECREASED GLUCOSE; Start 11/24/18 at 20:30 Dextrose (D50w Syringe) 25 ml Q15M PRN IV DECREASED GLUCOSE Last administered on 11/26/18 01:40; Admin Dose 25 ML; Start 11/24/18 at 20:30 Dextrose (D50w Syringe) 50 ml Q15M PRN IV DECREASED GLUCOSE Last administered on 11/29/18 06:01; Admin Dose 50 ML; Start 11/24/18 at 20:30 Glucagon (Glucagen) 1 mg Q15M PRN IM DECREASED GLUCOSE; Start 11/24/18 at 20:30 Glucose (Glutose) 15 gm Q15M PRN BUCCAL DECREASED GLUCOSE; Start 11/24/18 at 20:30 Insulin Aspart (Novolog Insulin Pen) NOVOLOG *MILD* ALGORITHM WITH MEALS BEDTIME SC Last administered on 12/05/18at 12:33; Admin Dose 2 UNIT; Start 11/28/18 at 11:30 Metoprolol Tartrate (Lopressor) 50 mg BID PO Last administered on 12/05/18at 08 :14; Admin Dose 50 MG; Start 11/28/18 at 21:00 Furosemide (Lasix) 40 mg BID DIURETICS IV Last administered on 12/05/18at 06:56; Admin Dose 40 MG; Start 11/30/18 at 18:00 Assessment/Plan Hospital Course (Demo Recall) 1.AF with mild RVR-rate controlled on current dose of BB - rate controlled now 2.Renal failure - intermittent HD - lasix per renal team 3.Hhyperkalemia 4.Bradycardia - will monitor now. 5.CHF-diastolic acute on chronic EF 50% by echo this admit - in CHF now - con;t to remove fluid as tolerated. 6.HTN 7.-mod to severe by echo 08/09 - no intervention planned. 8. Anemia - H/H low - [facility] team follows. JUAN KEY MD Dec 05, 2018 14:09
--- NOTE | 2018-12-05 14:25 | CONS ---
Consult Date/Type/Reason Admit Date/Time Nov 16, 2018 at 17:17 Initial Consult Date Type of Consultation: Pulm Requesting Provider: JABIER SEBASTIAN Date/Time of Note DATE: 12/05/18 TIME: 14:23 Subjective No events. Objective Vitals Vital Signs Date Temp Pulse Resp B/P (MAP) Pulse Ox O2 O2 Flow FiO2 Time Delivery Rate 12/05/18 Nasal 3.0 13:52 Cannula 12/05/18 80 12:00 12/05/18 97.6 18 129/58 99 11:31 (81) Intake and Output 12/04/18 12/04/18 12/05/18 1515:00 23:00 07:00 IntakeIntake Total 650 ml BalanceBalance 650 ml Exam HEENT: Neck supple; no JVD; no LAD CVS: RRR, S1 and S2 CHEST: Distant BS ABD: Soft, NT, + BS EXT: No c/c; + edema Results/Medications Result Diagram: 12/05/18 0509 12/05/18 0509 Results 24 hrs Laboratory Tests Test 12/04/18 17:51 12/04/18 21:58 12/05/18 02:31 12/05/18 05:09 Bedside Glucose 163 182 183 White Blood Count 4.7 L Red Blood Count 2.81 L Hemoglobin 6.6 *L Hematocrit 21.4 L Mean Corpuscular 76.2 L Volume Mean Corpuscular 23.5 L Hemoglobin Mean Corpuscular 30.8 L Hemoglobin Concent Red Cell 19.8 H Distribution Width Platelet Count 55 #L Mean Platelet Volume Immature 0.600 H Granulocytes % Neutrophils % 72.9 Lymphocytes % 14.6 L Monocytes % 10.4 Eosinophils % 1.3 Basophils % 0.2 Nucleated Red Blood 0.0 Cells % Immature 0.030 Granulocytes # Neutrophils # 3.4 Lymphocytes # 0.7 L Monocytes # 0.5 Eosinophils # 0.1 Basophils # 0.0 Nucleated Red Blood 0.0 Cells # Sodium Level 139 Potassium Level 4.2 Chloride Level 100 Carbon Dioxide Level 32 H Anion Gap 7 Blood Urea Nitrogen 69 H Creatinine 2.07 H Est Glomerular Filtrat Rate mL/min Glucose Level 171 Calcium Level 8.6 Phosphorus Level 2.8 Magnesium Level 1.8 Test 12/05/18 11:46 Bedside Glucose 214 Home Meds Active Scripts Furosemide* (Furosemide*) 40 Mg Tablet, 40 MG PO DAILY, #30 TAB Prov:DAVID RAUSCH [employer] 08/09/18 Clotrimazole* (Lotrimin*) 1%-30 Gm Cream..g., 1 APPLIC TOP BID, #1 TUB Please apply to the right lower extremity wound twice daily. Prov:DAVID RAUSCH [employer] 08/09/18 Insulin Glargine,Hum.rec.anlog (Basaglar Kwikpen U-100) 100 Unit/1 Ml Insuln.pen, 5 UNIT SC DAILY for 30 Days, #1 EA Prov:RAMIRO MORRIS MD 04/05/18 Linagliptin (TRADJENTA) 5 Mg Tablet, 5 MG PO DAILY for 30 Days, #30 TAB Prov:RAMIRO MORRIS MD 04/05/18 Insulin Aspart* (Novolog Insulin Pen*) 100 Unit/Ml Soln, 10 UNIT SC WITH LUNCH for 30 Days, #1 EA Prov:RAMIRO MORRIS MD 04/05/18 Insulin Aspart* (Novolog Insulin Pen*) 100 Unit/Ml Soln, 10 UNIT SC WITH DINNER for 30 Days, #1 EA Prov:RAMIRO MORRIS MD 04/05/18 Insulin Aspart* (Novolog Insulin Pen*) 100 Unit/Ml Soln, 6 UNIT SC WITH BREAKFAST for 30 Days, #1 EA Prov:RAMIRO MORRIS MD 04/05/18 Fluticasone-Vilanterol (Breo Ellipta Inhaler) 100-25 Mcg/Actuation Aer.pow.ba, 1 INH INH DAILY for 30 Days, #1 EA Prov:RAMIRO MORRIS MD 04/05/18 Aspirin (Aspirin) 81 Mg Chew, 81 MG PO DAILY for 30 Days, #30 TAB Prov:RAMIRO MORRIS MD 04/05/18 Metoprolol Tartrate* (Lopressor*) 25 Mg Tab, 75 MG PO BID for 30 Days, #60 TAB Prov:RAMIRO MORRIS MD 04/05/18 Hydralazine Hcl* (Apresoline*) 50 Mg Tab, 50 MG PO Q8 for 30 Days, #90 TAB Prov:RAMIRO MORRIS MD 04/05/18 Diltiazem Hcl* (Cardizem CD*) 120 Mg Cap.sr.24h, 120 MG PO BID for 30 Days, #60 TAB Prov:RAMIRO MORRIS MD 04/05/18 Apixaban* (Eliquis*) 5 Mg Tablet, 2.5 MG PO BID for 30 Days, #60 TAB Prov:RAMIRO MORRIS MD 04/05/18 Tiotropium [place]* (Spiriva*) 18 Mcg Cap.w.dev, 1 INH INH DAILY for 30 Days, #30 CAP Prov:RAMIRO MORRIS MD 04/05/18 Psyllium Husk (Metamucil) 0.52 Gm Capsule, 0.52 GM PO DAILY for 30 Days, #30 CAP Prov:RAMIRO MORRIS MD 04/19/17 Digoxin* (Digitek*) 0.125 Mg Tab, 0.125 MG PO DAILY@13, #30 3 Refills Prov:DALLAS PICKETT 03/22/15 Reported Medications Albuterol Sulfate* (Proair HFA*) 8.5 Gm Hfa.aer.ad, 2 PUFF INH Q6H PRN for WHEEZING AND SOB, INH 03/16/15 Omeprazole* (Omeprazole*) 20 Mg Capsule.dr, 20 MG PO DAILY, CAP 03/16/15 Medications Current Medications IV Flush (NS 3 ml) 3 ml PER PROTOCOL IV ; Start 11/16/18 at 19:30 Ondansetron HCl (Zofran Inj) 4 mg Q6H PRN IV NAUSEA/VOMITING; Start 11/16/18 at 19:30 Acetaminophen (Tylenol Tab) 650 mg Q6H PRN PO .PAIN 1-3 OR TEMP; Start 11/16/18 at 19:30 Acetaminophen/ Hydrocodone Bitart ([place] (5/325)) 1 tab Q6H PRN PO .MOD PAIN 4- 6 Last administered on 11/30/18at 00:44; Admin Dose 1 TAB; Start 11/16/18 at 19:30 Docusate Sodium (Colace) 100 mg Q12H PRN PO .CONSTIPATION; Start 11/16/18 at 19:30 Zolpidem Tartrate (Ambien) 5 mg QHS PRN PO .INSOMNIA Last administered on 11/22/18at 23:20; Admin Dose 5 MG; Start 11/16/18 at 19:30 Clotrimazole (Lotrimin Cr) 1 applic BID TOP Last administered on 12/05/18 08:14; Admin Dose 1 APPLIC; Start 11/16/18 at 21:00 Fluticasone/ Vilanterol (Breo Ellipta 100-25 Mcg Inh) 1 inh DAILY INH Last administered on 12/05/18 08:13; Admin Dose 1 INH; Start 11/17/18 at 12:00 Albuterol/ Ipratropium (Duoneb) 3 ml Q4H RESP THERAPY HHN Last administered on 12/05/18 04:21; Admin Dose 3 ML; Start 11/18/18 at 13:00 Metoprolol Tartrate (Lopressor) 5 mg Q4H PRN IV HR>110 Hold SBP<100; Start 11/23/18 at 13:00 IV Flush (NS 10 ml) 10 ml PRN PRN IV IV PROTOCOL; Start 11/24/18 at 16:00 Miscellaneous Information 1 ea NOTE XX Last administered on 11/29/18 12:55; Admin Dose 1 EA; Start 11/24/18 at 20:30 Glucose (Glutose) 15 gm Q15M PRN PO DECREASED GLUCOSE; Start 11/24/18 at 20:30 Glucose (Glutose) 22.5 gm Q15M PRN PO DECREASED GLUCOSE; Start 11/24/18 at 20:30 Dextrose (D50w Syringe) 25 ml Q15M PRN IV DECREASED GLUCOSE Last administered on 11/26/18 01:40; Admin Dose 25 ML; Start 11/24/18 at 20:30 Dextrose (D50w Syringe) 50 ml Q15M PRN IV DECREASED GLUCOSE Last administered on 11/29/18 06:01; Admin Dose 50 ML; Start 11/24/18 at 20:30 Glucagon (Glucagen) 1 mg Q15M PRN IM DECREASED GLUCOSE; Start 11/24/18 at 20:30 Glucose (Glutose) 15 gm Q15M PRN BUCCAL DECREASED GLUCOSE; Start 11/24/18 at 20:30 Insulin Aspart (Novolog Insulin Pen) NOVOLOG *MILD* ALGORITHM WITH MEALS BEDTIME SC Last administered on 12/05/18 12:33; Admin Dose 2 UNIT; Start 11/28/18 at 11:30 Metoprolol Tartrate (Lopressor) 50 mg BID PO Last administered on 12/05/18 08:14; Admin Dose 50 MG; Start 11/28/18 at 21:00 Furosemide (Lasix) 40 mg BID DIURETICS IV Last administered on 12/05/18at 06:56; Admin Dose 40 MG; Start 11/30/18 at 18:00 Assessment/Plan Assessment/Plan (Daily) IMP: 1. Status post acute hypoxemic respiratory failure secondary to volume overload 2. Acute renal failure now hemodialysis dependent 3. History of pulmonary embolus on Eliquis 4. Congestive cardiac failure with aortic stenosis 5. Encephalopathy toxic metabolic now resolving RECS: 1. Continue hemodialysis per nephrology 2. Monitor H&H consider iron replacement or Epogen 3. Aspiration precautions 4. Wound care 5. PT evaluation SNF placement. ISAEL MANTILLA MD Dec 05, 2018 14:25
--- NOTE | 2018-12-05 15:49 | PN ---
Date/Time of Note Date/Time of Note DATE: 12/05/18 TIME: 15:46 Assessment/Plan VTE Prophylaxis Risk score (from Ns)>0 risk: 3 SCD applied (from [facility] [place]): Yes Pharmacological prophylaxis: NA/contraindicated Pharm contraindication: thrombocytopenia Lines/Catheters IV Catheter Type (from [facility]): PICC Line Central line still needed: Yes Urinary Cath still in place: No Assessment/Plan Assessment/Plan 83 yo female with , diastolic CHF with acute respiratory failure and volume overload from CHF and BRIE. She was transferred to ICU and was at risk for intubation. HD was initiated and patient has improved markedly. Respiratory status stable. Remains a bit hypervolemic. Holding HD now. Kidneys recovering. 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 Stop heparin products. Unfortunately she refused labs Acute respiratory failure 2/2 volume overload: - patient's status has improved, now stable on NC - Continue O2 by NC BRIE: - Kidneys recovering with good urine output - diuretics per renal - Holding off on HD A Fib: - Hold heparin given hematuria and thrombocytopenia Anemia - Transfuse to Hgb>7 or for symptomatic anemia Cirrhosis Septic encephelopathy, improving Sepsis - will stop abx at this point, no clear source DNR Discharge planning: Patient can be discharged when volume status is optimized and platelet situation resolved. Likely will need subacute rehab. Result Diagram: 12/05/18 0509 12/05/18 0509 Subjective 24 Hr Interval Summary Free Text/Dictation No acute overnight events. Patient complains she hurts all over. Required 1 unit pRBCs today. Exam/Review of Systems Exam Vitals Vital Signs Date Temp Pulse Resp B/P (MAP) Pulse Ox O2 O2 Flow FiO2 Time Delivery Rate 12/05/18 97.9 85 21 127/60 93 15:37 (82) 12/05/18 Nasal 3.0 13:52 Cannula Intake and Output 12/04/18 12/04/18 12/05/18 1515:00 23:00 07:00 IntakeIntake Total 650 ml BalanceBalance 650 ml Exam GENERAL: Obese woman lying in bed in no acute distress. HEENT: Moist mucous membranes NECK: Supple, no thyromegaly. LUNGS: Mechanical breath sounds equal bilaterally. CARDIOVASCULAR: S1, S2 heard. No rubs or gallops. ABDOMEN: Soft, nontender, nondistended. Normal bowel sounds. No rebound or guarding. MUSCULOSKELETAL: bilateral LE edema, 1+ Results Results 24hrs Laboratory Tests Test 12/04/18 17:51 12/04/18 21:58 12/05/18 02:31 12/05/18 05:09 Bedside Glucose 163 182 183 White Blood Count 4.7 L Red Blood Count 2.81 L Hemoglobin 6.6 *L Hematocrit 21.4 L Mean Corpuscular 76.2 L Volume Mean Corpuscular 23.5 L Hemoglobin Mean Corpuscular 30.8 L Hemoglobin Concent Red Cell 19.8 H Distribution Width Platelet Count 55 #L Mean Platelet Volume Immature 0.600 H Granulocytes % Neutrophils % 72.9 Lymphocytes % 14.6 L Monocytes % 10.4 Eosinophils % 1.3 Basophils % 0.2 Nucleated Red Blood 0.0 Cells % Immature 0.030 Granulocytes # Neutrophils # 3.4 Lymphocytes # 0.7 L Monocytes # 0.5 Eosinophils # 0.1 Basophils # 0.0 Nucleated Red Blood 0.0 Cells # Sodium Level 139 Potassium Level 4.2 Chloride Level 100 Carbon Dioxide Level 32 H Anion Gap 7 Blood Urea Nitrogen 69 H Creatinine 2.07 H Est Glomerular Filtrat Rate mL/min Glucose Level 171 Calcium Level 8.6 Phosphorus Level 2.8 Magnesium Level 1.8 Test 12/05/18 11:46 Bedside Glucose 214 Medications Medication Current Medications IV Flush (NS 3 ml) 3 ml PER PROTOCOL IV ; Start 11/16/18 at 19:30 Ondansetron HCl (Zofran Inj) 4 mg Q6H PRN IV NAUSEA/VOMITING; Start 11/16/18 at 19:30 Acetaminophen (Tylenol Tab) 650 mg Q6H PRN PO .PAIN 1-3 OR TEMP; Start 11/16/18 at 19:30 Acetaminophen/ Hydrocodone Bitart ([place] (5/325)) 1 tab Q6H PRN PO .MOD PAIN 4- 6 Last administered on 11/30/18at 00:44; Admin Dose 1 TAB; Start 11/16/18 at 19:30 Docusate Sodium (Colace) 100 mg Q12H PRN PO .CONSTIPATION; Start 11/16/18 at 19:30 Zolpidem Tartrate (Ambien) 5 mg QHS PRN PO .INSOMNIA Last administered on 11/22/18at 23:20; Admin Dose 5 MG; Start 11/16/18 at 19:30 Clotrimazole (Lotrimin Cr) 1 applic BID TOP Last administered on 12/05/18at 08:14; Admin Dose 1 APPLIC; Start 11/16/18 at 21:00 Fluticasone/ Vilanterol (Breo Ellipta 100-25 Mcg Inh) 1 inh DAILY INH Last administered on 12/05/18at 08:13; Admin Dose 1 INH; Start 11/17/18 at 12:00 Albuterol/ Ipratropium (Duoneb) 3 ml Q4H RESP THERAPY HHN Last administered on 12/05/18 04:21; Admin Dose 3 ML; Start 11/18/18 at 13:00 Metoprolol Tartrate (Lopressor) 5 mg Q4H PRN IV HR>110 Hold SBP<100; Start 11/23/18 at 13:00 IV Flush (NS 10 ml) 10 ml PRN PRN IV IV PROTOCOL; Start 11/24/18 at 16:00 Miscellaneous Information 1 ea NOTE XX Last administered on 11/29/18at 12:55; Admin Dose 1 EA; Start 11/24/18 at 20:30 Glucose (Glutose) 15 gm Q15M PRN PO DECREASED GLUCOSE; Start 11/24/18 at 20:30 Glucose (Glutose) 22.5 gm Q15M PRN PO DECREASED GLUCOSE; Start 11/24/18 at 20:30 Dextrose (D50w Syringe) 25 ml Q15M PRN IV DECREASED GLUCOSE Last administered on 11/26/18at 01:40; Admin Dose 25 ML; Start 11/24/18 at 20:30 Dextrose (D50w Syringe) 50 ml Q15M PRN IV DECREASED GLUCOSE Last administered on 11/29/18at 06:01; Admin Dose 50 ML; Start 11/24/18 at 20:30 Glucagon (Glucagen) 1 mg Q15M PRN IM DECREASED GLUCOSE; Start 11/24/18 at 20:30 Glucose (Glutose) 15 gm Q15M PRN BUCCAL DECREASED GLUCOSE; Start 11/24/18 at 20:30 Insulin Aspart (Novolog Insulin Pen) NOVOLOG *MILD* ALGORITHM WITH MEALS BEDTIME SC Last administered on 12/05/18at 12:33; Admin Dose 2 UNIT; Start 11/28/18 at 11:30 Metoprolol Tartrate (Lopressor) 50 mg BID PO Last administered on 12/05/18at 08:14; Admin Dose 50 MG; Start 11/28/18 at 21:00 Furosemide (Lasix) 40 mg BID DIURETICS IV Last administered on 12/05/18at 06:56; Admin Dose 40 MG; Start 11/30/18 at 18:00 GHASSAN INIGUEZ MD Dec 05, 2018 15:49
[2018-12-05] MEDS: HYDROCODONE/APAP (5/325) TAB PO PRN (23:01)
[2018-12-06] VITALS (12 sets, daily range): BP systolic 113–137; BP diastolic 58–64; PULSE 66–91; RESP 17–19
[2018-12-06] MEDS: ALBUTEROL/IPRATROPIUM (NEB) 3 ML AMP HHN SCH ×6 (01:59→21:51)
[2018-12-06] MEDS: FUROSEMIDE 40 MG INJ IV SCH ×2 (06:55→17:32)
[2018-12-06] MEDS: FLUTICASONE/VILANTEROL 100-25 INH SCH (08:13)
[2018-12-06] MEDS: CLOTRIMAZOLE 1% 30 GM CR TOP SCH ×2 (08:13→21:00)
[2018-12-06] MEDS: METOPROLOL 50 MG TAB PO SCH ×2 (08:16→20:37)
[2018-12-06] MEDS: INSULIN ASPART [NOVOLOG] 3 ML PEN SC SCH ×4 (08:21→20:52)
--- NOTE | 2018-12-06 10:51 | CONS ---
Consult Date/Type/Reason Admit Date/Time Nov 16, 2018 at 17:17 Initial Consult Date Type of Consultation: Pulm Requesting Provider: JABIER SEBASTIAN Date/Time of Note DATE: 12/06/18 TIME: 10:48 Subjective Pt feels a little better today - s/p blood [place] 1u pRBC yesterday - will follow clinically, clearly better today ROS: No fever, no chills, no nausea, no vomiting, no diarrhea/constipation No recent weight changes No chest pain, no PND, no orthopnea + chronic SOB No dizziness, blurred vision No thirst, no heat or cold intolerance Objective Vitals Vital Signs Date Temp Pulse Resp B/P (MAP) Pulse Ox O2 O2 Flow FiO2 Time Delivery Rate 12/06/18 82 14 96 Nasal 3.0 09:36 Cannula 12/06/18 98.5 120/58 07:19 (78) Intake and Output 12/05/18 12/05/18 12/06/18 1414:59 22:59 06:59 IntakeIntake Total 800 ml 1100 ml BalanceBalance 800 ml 1100 ml Exam General: WN/WD/NAD, AOx 2-3 HEENT: Unicetric/atraumatic/EOMI (follow commands) NECK: JVD elevated, no thyromegaly Lymph: no lymphadenopathy HEART: regular with no S3, II/ systolic murmur at apex, 2/6 m at base LUNGS: Coarse sounds ABD: soft, NT, ND, +BS : Intact Neuro: non focal SKIN: chronic changes EXT: 2+ edema and wounds Results/Medications Result Diagram: 12/06/1813 12/06/18 0513 Results 24 hrs Laboratory Tests Test 12/05/18 11:46 12/05/18 17:16 12/05/18 19:59 12/06/18 05:13 Bedside Glucose 214 238 H 180 White Blood Count 4.1 L Red Blood Count 3.00 L Hemoglobin 7.3 L Hematocrit 23.6 L Mean Corpuscular 78.7 L Volume Mean Corpuscular 24.3 L Hemoglobin Mean Corpuscular 30.9 L Hemoglobin Concent Red Cell 20.3 H Distribution Width Platelet Count 71 #L Mean Platelet Volume Immature 1.200 H Granulocytes % Neutrophils % 71.1 Lymphocytes % 16.3 Monocytes % 9.5 Eosinophils % 1.7 Basophils % 0.2 Nucleated Red Blood 0.0 Cells % Immature 0.050 H Granulocytes # Neutrophils # 2.9 Lymphocytes # 0.7 L Monocytes # 0.4 Eosinophils # 0.1 Basophils # 0.0 Nucleated Red Blood 0.0 Cells # Sodium Level 142 Potassium Level 4.3 Chloride Level 102 Carbon Dioxide Level 32 H Anion Gap 8 Blood Urea Nitrogen 69 H Creatinine 2.06 H Est Glomerular Filtrat Rate mL/min Glucose Level 222 H Calcium Level 8.5 Phosphorus Level 2.9 Magnesium Level 1.8 Test 12/06/18 08:12 Bedside Glucose 200 Home Meds Active Scripts Furosemide* (Furosemide*) 40 Mg Tablet, 40 MG PO DAILY, #30 TAB Prov:DAVID RAUSCH NP 08/09/18 Clotrimazole* (Lotrimin*) 1%-30 Gm Cream..g., 1 APPLIC TOP BID, #1 TUB Please apply to the right lower extremity wound twice daily. Prov:DAVID RAUSCH NP 08/09/18 Insulin Glargine,Hum.rec.anlog (Basaglar Kwikpen U-100) 100 Unit/1 Ml Insuln.pen, 5 UNIT SC DAILY for 30 Days, #1 EA Prov:RAMIRO MORRIS MD 04/05/18 Linagliptin (TRADJENTA) 5 Mg Tablet, 5 MG PO DAILY for 30 Days, #30 TAB Prov:RAMIRO MORRIS MD 04/05/18 Insulin Aspart* (Novolog Insulin Pen*) 100 Unit/Ml Soln, 10 UNIT SC WITH LUNCH for 30 Days, #1 EA Prov:RAMIRO MORRIS MD 04/05/18 Insulin Aspart* (Novolog Insulin Pen*) 100 Unit/Ml Soln, 10 UNIT SC WITH DINNER for 30 Days, #1 EA Prov:RAMIRO MORRIS MD 04/05/18 Insulin Aspart* (Novolog Insulin Pen*) 100 Unit/Ml Soln, 6 UNIT SC WITH BREAKFAST for 30 Days, #1 EA Prov:RAMIRO MORRIS MD 04/05/18 Fluticasone-Vilanterol (Breo Ellipta Inhaler) 100-25 Mcg/Actuation Aer.pow.ba, 1 INH INH DAILY for 30 Days, #1 EA Prov:RAMIRO MORRIS MD 04/05/18 Aspirin (Aspirin) 81 Mg Chew, 81 MG PO DAILY for 30 Days, #30 TAB Prov:RAMIRO MORRIS MD 04/05/18 Metoprolol Tartrate* (Lopressor*) 25 Mg Tab, 75 MG PO BID for 30 Days, #60 TAB Prov:RAMIRO MORRIS MD 04/05/18 Hydralazine Hcl* (Apresoline*) 50 Mg Tab, 50 MG PO Q8 for 30 Days, #90 TAB Prov:RAMIRO MORRIS MD 04/05/18 Diltiazem Hcl* (Cardizem CD*) 120 Mg Cap.sr.24h, 120 MG PO BID for 30 Days, #60 TAB Prov:RAMIRO MORRIS MD 04/05/18 Apixaban* (Eliquis*) 5 Mg Tablet, 2.5 MG PO BID for 30 Days, #60 TAB Prov:RAMIRO MORRIS MD 04/05/18 Tiotropium [place]* (Spiriva*) 18 Mcg Cap.w.dev, 1 INH INH DAILY for 30 Days, #30 CAP Prov:RAMIRO MORRIS MD 04/05/18 Psyllium Husk (Metamucil) 0.52 Gm Capsule, 0.52 GM PO DAILY for 30 Days, #30 CAP Prov:RAMIRO MORRIS MD 04/19/17 Digoxin* (Digitek*) 0.125 Mg Tab, 0.125 MG PO DAILY@13, #30 3 Refills Prov:DALLAS PICKETT 03/22/15 Reported Medications Albuterol Sulfate* (Proair HFA*) 8.5 Gm Hfa.aer.ad, 2 PUFF INH Q6H PRN for WHEEZING AND SOB, INH 03/16/15 Omeprazole* (Omeprazole*) 20 Mg Capsule.dr, 20 MG PO DAILY, CAP 03/16/15 Medications Current Medications IV Flush (NS 3 ml) 3 ml PER PROTOCOL IV ; Start 11/16/18 at 19:30 Ondansetron HCl (Zofran Inj) 4 mg Q6H PRN IV NAUSEA/VOMITING; Start 11/16/18 at 19:30 Acetaminophen (Tylenol Tab) 650 mg Q6H PRN PO .PAIN 1-3 OR TEMP; Start 11/16/18 at 19:30 Acetaminophen/ Hydrocodone Bitart ([place] (5/325)) 1 tab Q6H PRN PO .MOD PAIN 4- 6 Last administered on 12/05/18 23:01; Admin Dose 1 TAB; Start 11/16/18 at 19:30 Docusate Sodium (Colace) 100 mg Q12H PRN PO .CONSTIPATION; Start 11/16/18 at 19:30 Zolpidem Tartrate (Ambien) 5 mg QHS PRN PO .INSOMNIA Last administered on 11/22/18 23:20; Admin Dose 5 MG; Start 11/16/18 at 19:30 Clotrimazole (Lotrimin Cr) 1 applic BID TOP Last administered on 12/06/18 08:13; Admin Dose 1 APPLIC; Start 11/16/18 at 21:00 Fluticasone/ Vilanterol (Breo Ellipta 100-25 Mcg Inh) 1 inh DAILY INH Last administered on 12/06/18 08:13; Admin Dose 1 INH; Start 11/17/18 at 12:00 Albuterol/ Ipratropium (Duoneb) 3 ml Q4H RESP THERAPY HHN Last administered on 12/06/18 09:33; Admin Dose 3 ML; Start 11/18/18 at 13:00 Metoprolol Tartrate (Lopressor) 5 mg Q4H PRN IV HR>110 Hold SBP<100; Start 11/23/18 at 13:00 IV Flush (NS 10 ml) 10 ml PRN PRN IV IV PROTOCOL; Start 11/24/18 at 16:00 Miscellaneous Information 1 ea NOTE XX Last administered on 11/29/18at 12:55; Admin Dose 1 EA; Start 11/24/18 at 20:30 Glucose (Glutose) 15 gm Q15M PRN PO DECREASED GLUCOSE; Start 11/24/18 at 20:30 Glucose (Glutose) 22.5 gm Q15M PRN PO DECREASED GLUCOSE; Start 11/24/18 at 20:30 Dextrose (D50w Syringe) 25 ml Q15M PRN IV DECREASED GLUCOSE Last administered on 11/26/18 01:40; Admin Dose 25 ML; Start 11/24/18 at 20:30 Dextrose (D50w Syringe) 50 ml Q15M PRN IV DECREASED GLUCOSE Last administered on 11/29/18 06:01; Admin Dose 50 ML; Start 11/24/18 at 20:30 Glucagon (Glucagen) 1 mg Q15M PRN IM DECREASED GLUCOSE; Start 11/24/18 at 20:30 Glucose (Glutose) 15 gm Q15M PRN BUCCAL DECREASED GLUCOSE; Start 11/24/18 at 20:30 Insulin Aspart (Novolog Insulin Pen) NOVOLOG *MILD* ALGORITHM WITH MEALS BEDTIME SC Last administered on 12/06/18at 08:21; Admin Dose 2 UNIT; Start 11/28/18 at 11:30 Metoprolol Tartrate (Lopressor) 50 mg BID PO Last administered on 12/06/18at 08:16; Admin Dose 50 MG; Start 11/28/18 at 21:00 Furosemide (Lasix) 40 mg BID DIURETICS IV Last administered on 12/06/18at 06:55; Admin Dose 40 MG; Start 11/30/18 at 18:00 Assessment/Plan Hospital Course (Demo Recall) 1.AF with mild RVR-rate controlled on current dose of BB - rate controlled now - stable now. 2.Renal failure - intermittent HD - lasix per renal team - will monitor 3.Hyperkalemia - now treated 4.Bradycardia - will monitor now. NO plan for pacer nw. 5.CHF-diastolic acute on chronic EF 50% by echo this admit - in CHF now - con;t to remove fluid as tolerated. 6.HTN 7.-mod to severe by echo 08/09 - no intervention planned. 8. Anemia - H/H low - s/p blood tx - up to 7.3 today JUAN KEY MD Dec 06, 2018 10:51
--- NOTE | 2018-12-06 10:55 | PN ---
Date/Time of Note Date/Time of Note DATE: 12/06/18 TIME: 10:54 Assessment/Plan VTE Prophylaxis Risk score (from Nsg)>0 risk: 11 SCD applied (from Nsg): Yes Pharmacological prophylaxis: other Lines/Catheters IV Catheter Type (from Nrsg): PICC Line Central line still needed: Yes Urinary Cath still in place: No Assessment/Plan Hospital Course renal follow up SUBJECTIVE: all noted. d/w DR Singh no fever, chills, new rash, hematuria, melena, vomiting, chest pain, tachypnea, diaphoresis renal function is stable pancytopenia noted OBJECTIVE: HEENT: Head is normocephalic. NECK: Supple. HEART: Regular rate. LUNGS: Show diminished breath sounds at the base. ABDOMEN: Soft, nontender to palpation without rebound or guarding. EXTREMITIES: Negative for clubbing, cyanosis. Positive edema. DERMATOLOGIC: No rashes. MUSCULOSKELETAL: No joint effusion. NEUROLOGIC: No change in exam. MEDICATIONS: The patient's medications have been reviewed. 1. Nonoliguric acute kidney injury on top of chronic kidney disease with previous baseline creatinine of 1.5 mg/dL. Etiology of acute kidney injury is secondary to hemodynamics, possible tubular injury. The patient was initiated on dialysis. However, has been showing signs of renal recovery. The patient had excellent urinary output. The patient's Soto catheter; however, has been removed. Continue diuretics. Anticipate removing germaine catheter. 2. Volume overload secondary to congestive heart failure. Continue diuretic therapy. Continue diuretics 3. Anemia. Continue to monitor hemoglobin and hematocrit levels. 4. Mineral bone disorder, monitor calcium and phosphorus levels. 5. Acute respiratory failure secondary to congestive heart failure, reactive airway disease. Continue current medical management, supplemental oxygen. Continue diuretic therapy. 6. Atrial fibrillation. Continue current treatment plan. 7. Diabetes. Continue current insulin regimen. 8. Acute encephalopathy, etiology is toxic metabolic. 9. Aortic stenosis. Continue to monitor. Result Diagram: 12/06/18 0513 12/06/18 0513 Results 24hrs Laboratory Tests Test 12/05/18 11:46 12/05/18 17:16 12/05/18 19:59 12/06/18 05:13 Bedside Glucose 214 238 H 180 White Blood Count 4.1 L Red Blood Count 3.00 L Hemoglobin 7.3 L Hematocrit 23.6 L Mean Corpuscular 78.7 L Volume Mean Corpuscular 24.3 L Hemoglobin Mean Corpuscular 30.9 L Hemoglobin Concent Red Cell 20.3 H Distribution Width Platelet Count 71 #L Mean Platelet Volume Immature 1.200 H Granulocytes % Neutrophils % 71.1 Lymphocytes % 16.3 Monocytes % 9.5 Eosinophils % 1.7 Basophils % 0.2 Nucleated Red Blood 0.0 Cells % Immature 0.050 H Granulocytes # Neutrophils # 2.9 Lymphocytes # 0.7 L Monocytes # 0.4 Eosinophils # 0.1 Basophils # 0.0 Nucleated Red Blood 0.0 Cells # Sodium Level 142 Potassium Level 4.3 Chloride Level 102 Carbon Dioxide Level 32 H Anion Gap 8 Blood Urea Nitrogen 69 H Creatinine 2.06 H Est Glomerular Filtrat Rate mL/min Glucose Level 222 H Calcium Level 8.5 Phosphorus Level 2.9 Magnesium Level 1.8 Test 12/06/18 08:12 Bedside Glucose 200 Exam/Review of Systems Exam Vitals Vital Signs Date Temp Pulse Resp B/P (MAP) Pulse Ox O2 O2 Flow FiO2 Time Delivery Rate 12/06/18 82 14 96 Nasal 3.0 09:36 Cannula 12/06/18 98.5 120/58 07:19 (78) Intake and Output 12/05/18 12/05/18 12/06/18 1515:00 23:00 07:00 IntakeIntake Total 800 ml 1100 ml BalanceBalance 800 ml 1100 ml Results Results 24hrs Laboratory Tests Test 12/05/18 11:46 12/05/18 17:16 12/05/18 19:59 12/06/18 05:13 Bedside Glucose 214 238 H 180 White Blood Count 4.1 L Red Blood Count 3.00 L Hemoglobin 7.3 L Hematocrit 23.6 L Mean Corpuscular 78.7 L Volume Mean Corpuscular 24.3 L Hemoglobin Mean Corpuscular 30.9 L Hemoglobin Concent Red Cell 20.3 H Distribution Width Platelet Count 71 #L Mean Platelet Volume Immature 1.200 H Granulocytes % Neutrophils % 71.1 Lymphocytes % 16.3 Monocytes % 9.5 Eosinophils % 1.7 Basophils % 0.2 Nucleated Red Blood 0.0 Cells % Immature 0.050 H Granulocytes # Neutrophils # 2.9 Lymphocytes # 0.7 L Monocytes # 0.4 Eosinophils # 0.1 Basophils # 0.0 Nucleated Red Blood 0.0 Cells # Sodium Level 142 Potassium Level 4.3 Chloride Level 102 Carbon Dioxide Level 32 H Anion Gap 8 Blood Urea Nitrogen 69 H Creatinine 2.06 H Est Glomerular Filtrat Rate mL/min Glucose Level 222 H Calcium Level 8.5 Phosphorus Level 2.9 Magnesium Level 1.8 Test 12/06/18 08:12 Bedside Glucose 200 Medications Medication Current Medications IV Flush (NS 3 ml) 3 ml PER PROTOCOL IV ; Start 11/16/18 at 19:30 Ondansetron HCl (Zofran Inj) 4 mg Q6H PRN IV NAUSEA/VOMITING; Start 11/16/18 at 19:30 Acetaminophen (Tylenol Tab) 650 mg Q6H PRN PO .PAIN 1-3 OR TEMP; Start 11/16/18 at 19:30 Acetaminophen/ Hydrocodone Bitart ([place] (5/325)) 1 tab Q6H PRN PO .MOD PAIN 4- 6 Last administered on 12/05/18at 23:01; Admin Dose 1 TAB; Start 11/16/18 at 19:30 Docusate Sodium (Colace) 100 mg Q12H PRN PO .CONSTIPATION; Start 11/16/18 at 19:30 Zolpidem Tartrate (Ambien) 5 mg QHS PRN PO .INSOMNIA Last administered on 11/22/18 23:20; Admin Dose 5 MG; Start 11/16/18 at 19:30 Clotrimazole (Lotrimin Cr) 1 applic BID TOP Last administered on 12/06/18 08:13; Admin Dose 1 APPLIC; Start 11/16/18 at 21:00 Fluticasone/ Vilanterol (Breo Ellipta 100-25 Mcg Inh) 1 inh DAILY INH Last administered on 12/06/18 08:13; Admin Dose 1 INH; Start 11/17/18 at 12:00 Albuterol/ Ipratropium (Duoneb) 3 ml Q4H RESP THERAPY HHN Last administered on 12/06/18 09:33; Admin Dose 3 ML; Start 11/18/18 at 13:00 Metoprolol Tartrate (Lopressor) 5 mg Q4H PRN IV HR>110 Hold SBP<100; Start 11/23/18 at 13:00 IV Flush (NS 10 ml) 10 ml PRN PRN IV IV PROTOCOL; Start 11/24/18 at 16:00 Miscellaneous Information 1 ea NOTE XX Last administered on 11/29/18at 12:55; Admin Dose 1 EA; Start 11/24/18 at 20:30 Glucose (Glutose) 15 gm Q15M PRN PO DECREASED GLUCOSE; Start 11/24/18 at 20:30 Glucose (Glutose) 22.5 gm Q15M PRN PO DECREASED GLUCOSE; Start 11/24/18 at 20:30 Dextrose (D50w Syringe) 25 ml Q15M PRN IV DECREASED GLUCOSE Last administered on 11/26/18at 01:40; Admin Dose 25 ML; Start 11/24/18 at 20:30 Dextrose (D50w Syringe) 50 ml Q15M PRN IV DECREASED GLUCOSE Last administered on 11/29/18at 06:01; Admin Dose 50 ML; Start 11/24/18 at 20:30 Glucagon (Glucagen) 1 mg Q15M PRN IM DECREASED GLUCOSE; Start 11/24/18 at 20:30 Glucose (Glutose) 15 gm Q15M PRN BUCCAL DECREASED GLUCOSE; Start 11/24/18 at 20:30 Insulin Aspart (Novolog Insulin Pen) NOVOLOG *MILD* ALGORITHM WITH MEALS BEDTIME SC Last administered on 12/06/18at 08:21; Admin Dose 2 UNIT; Start 11/28/18 at 11:30 Metoprolol Tartrate (Lopressor) 50 mg BID PO Last administered on 12/06/18at 08:16; Admin Dose 50 MG; Start 11/28/18 at 21:00 Furosemide (Lasix) 40 mg BID DIURETICS IV Last administered on 12/06/18at 06:55; Admin Dose 40 MG; Start 11/30/18 at 18:00 COURTNEY TAY DO Dec 06, 2018 10:55
--- NOTE | 2018-12-06 12:35 | CONS ---
Assessment/Plan Assessment/Plan Hospital Course (Demo Recall) ID PROGRESS NOTE CURRENT ABX: DAY # OFF ABX s/p Zyvox, Cefepime, Diflucan 24H INTERVAL SUMMARY * She tells me she feels better overall -- still with supplemental O2 via NC reporting subjective dyspnea off O2 * No fevers, VSS, ON LASIX FOR PULMONARY EDEMA DIAGNOSTIC IMAGING * 12/05/18 CXR: Worsening right lung consolidation and effusion. Left basilar infiltrate or atelectasis unchanged. Question failure versus pneumonia. MICRO/OTHER * 11/18/18 REPEAT bcx (-) * aDMISSION Blood culture + Staph 1 out of 2 sets, Organism 1 COAGULASE NEGATIVE STAPH * 11/18/18 urine culture URINE CULTURE Final Organism 1 KOLTON GLABRATA COLONY COUNT 10,000 - 20,000 CFU/ml * Left lower extremity woundWOUND CULTURE Final Organism 1 ENTEROBACTER CLOACAE COMPLEX QUANTITY 2+ Organism 2 KLEBSIELLA OXYTOCA QUANTITY 1+ Organism 3 COAGULASE NEGATIVE STAPH QUANTITY ISOLATED FROM BROTH ONLY Organism 4 ALPHA HEMOLYTIC STREP SPP QUANTITY ISOLATED FROM BROTH ONLY . VIRIDANS GROUP EC COMPLEX KLEB OXYTO COAG NEG M.I.C. RX M.I.C. RX M.I.C. RX --------- --- --------- --- --------- --- CEFAZOLIN R S CEFOTAXIME S S CIPROFLOXACIN <=0.25 S <=0.25 S <=0.5 S CLINDAMYCIN 1 I DOXYCYCLINE S ERYTHROMYCIN <=0.25 S GENTAMICIN <=1 S <=1 S LEVOFLOXACIN <=0.12 S <=0.12 S 0.5 S OXACILLIN 2 S PENICILLIN PENICILLIN-G R RIFAMPIN <=0.5 S VANCOMYCIN <=0.5 S TOBRAMYCIN <=1 S <=1 S TRIMETHOPRIM/SULFAMETHOXAZOLE <=20 S <=20 S <=10 S ALPHA HEMO M.I.C. RX --------- --- CEFAZOLIN CEFOTAXIME 0.064 S CIPROFLOXACIN CLINDAMYCIN DOXYCYCLINE ERYTHROMYCIN GENTAMICIN LEVOFLOXACIN OXACILLIN PENICILLIN 0.032 S PENICILLIN-G RIFAMPIN VANCOMYCIN 1 S TOBRAMYCIN TRIMETHOPRIM/SULFAMETHOXAZOLE ALPHA HEMO Zone Size RX --------- --- * CLINDAMYCIN S * ERYTHROMYCIN S * * PHYSICAL EXAMINATION: GENERAL: VSS, obese, mild dyspnea on O2 via NC HEENT: AT, NC, anicteric NECK: Supple, CHEST: Equal chest rise bilaterally, course BS HEART: Pulse RRR ABDOMEN: Soft / NT EXTREMITIES: Warm, Bilateral lower extremities edema erythema and multiple wounds, left more than right SKIN: No rash, no diaphoresis ID ASSESSMENT 83 yo F admit with: 1. Sepsis, present on admission 2. Bacteremia cw contaminant 3. 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 Urinary tract infection 5. Acute hypoxemic respiratory failure secondary to pulmonary edema and CHF exacerbation, poss PNA 6. Morbid obesity 7. Atrial fibrillation 8. Diabetes 9. Acute kidney failure (-)MRSA Nares ABX ALLERGIES: KNDA INVASIVES: PIV, FC CURRENT ABX: DAY # OFF ABX s/p Zyvox, Cefepime, Diflucan ID RECOMMENDATIONS/PLAN: 1. Continue to monitor OFF ABX 2. She remains on diuretics for pulmonary congestion/edema . Consultation Date/Type/Reason Admit Date/Time Nov 16, 2018 at 17:17 Initial Consult Date Requesting Provider: JABIER SEBASTIAN Date/Time of Note DATE: 12/06/18 TIME: 12:34 Exam/Review of Systems Exam Vitals Vital Signs Date Temp Pulse Resp B/P (MAP) Pulse Ox O2 O2 Flow FiO2 Time Delivery Rate 12/06/18 78 12:02 12/06/18 98.0 18 137/64 99 11:19 (88) 12/06/18 Nasal 3.0 09:36 Cannula Intake and Output 12/05/18 12/05/18 12/06/18 1515:00 23:00 07:00 IntakeIntake Total 800 ml 1100 ml BalanceBalance 800 ml 1100 ml Results Result Diagram: 12/06/18 0513 12/06/18 0513 Results 24hrs Laboratory Tests Test 12/05/18 17:16 12/05/18 19:59 12/06/18 05:13 12/06/18 08:12 Bedside Glucose 238 H 180 200 White Blood Count 4.1 L Red Blood Count 3.00 L Hemoglobin 7.3 L Hematocrit 23.6 L Mean Corpuscular 78.7 L Volume Mean Corpuscular 24.3 L Hemoglobin Mean Corpuscular 30.9 L Hemoglobin Concent Red Cell 20.3 H Distribution Width Platelet Count 71 #L Mean Platelet Volume Immature 1.200 H Granulocytes % Neutrophils % 71.1 Lymphocytes % 16.3 Monocytes % 9.5 Eosinophils % 1.7 Basophils % 0.2 Nucleated Red Blood 0.0 Cells % Immature 0.050 H Granulocytes # Neutrophils # 2.9 Lymphocytes # 0.7 L Monocytes # 0.4 Eosinophils # 0.1 Basophils # 0.0 Nucleated Red Blood 0.0 Cells # Sodium Level 142 Potassium Level 4.3 Chloride Level 102 Carbon Dioxide Level 32 H Anion Gap 8 Blood Urea Nitrogen 69 H Creatinine 2.06 H Est Glomerular Filtrat Rate mL/min Glucose Level 222 H Calcium Level 8.5 Phosphorus Level 2.9 Magnesium Level 1.8 Test 12/06/18 12:00 Bedside Glucose 132 Medications Medication Current Medications IV Flush (NS 3 ml) 3 ml PER PROTOCOL IV ; Start 11/16/18 at 19:30 Ondansetron HCl (Zofran Inj) 4 mg Q6H PRN IV NAUSEA/VOMITING; Start 11/16/18 at 19:30 Acetaminophen (Tylenol Tab) 650 mg Q6H PRN PO .PAIN 1-3 OR TEMP; Start 11/16/18 at 19:30 Acetaminophen/ Hydrocodone Bitart ([place] (5/325)) 1 tab Q6H PRN PO .MOD PAIN 4- 6 Last administered on 12/05/18at 23:01; Admin Dose 1 TAB; Start 11/16/18 at 19:30 Docusate Sodium (Colace) 100 mg Q12H PRN PO .CONSTIPATION; Start 11/16/18 at 19:30 Zolpidem Tartrate (Ambien) 5 mg QHS PRN PO .INSOMNIA Last administered on 23:20; Admin Dose 5 MG; Start 11/16/18 at 19:30 Clotrimazole (Lotrimin Cr) 1 applic BID TOP Last administered on 12/06/18at 08:13; Admin Dose 1 APPLIC; Start 11/16/18 at 21:00 Fluticasone/ Vilanterol (Breo Ellipta 100-25 Mcg Inh) 1 inh DAILY INH Last administered on 12/06/18 08:13; Admin Dose 1 INH; Start 11/17/18 at 12:00 Albuterol/ Ipratropium (Duoneb) 3 ml Q4H RESP THERAPY N Last administered on 12/06/18 12:30; Admin Dose 3 ML; Start 11/18/18 at 13:00 Metoprolol Tartrate (Lopressor) 5 mg Q4H PRN IV HR>110 Hold SBP<100; Start 11/23/18 at 13:00 IV Flush (NS 10 ml) 10 ml PRN PRN IV IV PROTOCOL; Start 11/24/18 at 16:00 Miscellaneous Information 1 ea NOTE XX Last administered on 11/29/18at 12:55; Admin Dose 1 EA; Start 11/24/18 at 20:30 Glucose (Glutose) 15 gm Q15M PRN PO DECREASED GLUCOSE; Start 11/24/18 at 20:30 Glucose (Glutose) 22.5 gm Q15M PRN PO DECREASED GLUCOSE; Start 11/24/18 at 20:30 Dextrose (D50w Syringe) 25 ml Q15M PRN IV DECREASED GLUCOSE Last administered on 11/26/18at 01:40; Admin Dose 25 ML; Start 11/24/18 at 20:30 Dextrose (D50w Syringe) 50 ml Q15M PRN IV DECREASED GLUCOSE Last administered on 11/29/18 06:01; Admin Dose 50 ML; Start 11/24/18 at 20:30 Glucagon (Glucagen) 1 mg Q15M PRN IM DECREASED GLUCOSE; Start 11/24/18 at 20:30 Glucose (Glutose) 15 gm Q15M PRN BUCCAL DECREASED GLUCOSE; Start 11/24/18 at 20:30 Insulin Aspart (Novolog Insulin Pen) NOVOLOG *MILD* ALGORITHM WITH MEALS BEDTIME SC Last administered on 12/06/18at 08:21; Admin Dose 2 UNIT; Start 11/28/18 at 11:30 Metoprolol Tartrate (Lopressor) 50 mg BID PO Last administered on 12/06/18 08:16; Admin Dose 50 MG; Start 11/28/18 at 21:00 Furosemide (Lasix) 40 mg BID DIURETICS IV Last administered on 12/06/18 06:55; Admin Dose 40 MG; Start 11/30/18 at 18:00 DULCE MCKINNEY NP Dec 06, 2018 12:35
--- NOTE | 2018-12-06 14:06 | CONS ---
Consult Date/Type/Reason Admit Date/Time Nov 16, 2018 at 17:17 Initial Consult Date Type of Consultation: Pulm Requesting Provider: JABIER SEBASTIAN Date/Time of Note DATE: 12/06/18 TIME: 14:05 Subjective No events; remains on 3L NC Objective Vitals Vital Signs Date Temp Pulse Resp B/P (MAP) Pulse Ox O2 O2 Flow FiO2 Time Delivery Rate 12/06/18 83 14 96 Nasal 3.0 12:20 Cannula 12/06/18 98.0 137/64 11:19 (88) Intake and Output 12/05/18 12/05/18 12/06/18 1515:00 23:00 07:00 IntakeIntake Total 800 ml 1100 ml BalanceBalance 800 ml 1100 ml Exam HEENT: Neck supple; no JVD; no LAD CVS: RRR, S1 and S2 CHEST: Distant BS ABD: Soft, NT, + BS EXT: No c/c; + edema Results/Medications Result Diagram: 12/06/1813 12/06/18 0513 Results 24 hrs Laboratory Tests Test 12/05/18 17:16 12/05/18 19:59 12/06/18 05:13 12/06/18 08:12 Bedside Glucose 238 H 180 200 White Blood Count 4.1 L Red Blood Count 3.00 L Hemoglobin 7.3 L Hematocrit 23.6 L Mean Corpuscular 78.7 L Volume Mean Corpuscular 24.3 L Hemoglobin Mean Corpuscular 30.9 L Hemoglobin Concent Red Cell 20.3 H Distribution Width Platelet Count 71 #L Mean Platelet Volume Immature 1.200 H Granulocytes % Neutrophils % 71.1 Lymphocytes % 16.3 Monocytes % 9.5 Eosinophils % 1.7 Basophils % 0.2 Nucleated Red Blood 0.0 Cells % Immature 0.050 H Granulocytes # Neutrophils # 2.9 Lymphocytes # 0.7 L Monocytes # 0.4 Eosinophils # 0.1 Basophils # 0.0 Nucleated Red Blood 0.0 Cells # Sodium Level 142 Potassium Level 4.3 Chloride Level 102 Carbon Dioxide Level 32 H Anion Gap 8 Blood Urea Nitrogen 69 H Creatinine 2.06 H Est Glomerular Filtrat Rate mL/min Glucose Level 222 H Calcium Level 8.5 Phosphorus Level 2.9 Magnesium Level 1.8 Test 12/06/18 12:00 Bedside Glucose 132 Home Meds Active Scripts Furosemide* (Furosemide*) 40 Mg Tablet, 40 MG PO DAILY, #30 TAB Prov:DAVID RAUSCH EASTER BUNNY 08/09/18 Clotrimazole* (Lotrimin*) 1%-30 Gm Cream..g., 1 APPLIC TOP BID, #1 TUB Please apply to the right lower extremity wound twice daily. Prov:DAVID RAUSCH EASTER BUNNY 08/09/18 Insulin Glargine,Hum.rec.anlog (Basaglar Kwikpen U-100) 100 Unit/1 Ml Insuln.pen, 5 UNIT SC DAILY for 30 Days, #1 EA Prov:RAMIRO MORRIS MD 04/05/18 Linagliptin (TRADJENTA) 5 Mg Tablet, 5 MG PO DAILY for 30 Days, #30 TAB Prov:RAMIRO MORRIS MD 04/05/18 Insulin Aspart* (Novolog Insulin Pen*) 100 Unit/Ml Soln, 10 UNIT SC WITH LUNCH for 30 Days, #1 EA Prov:RAMIRO MORRIS MD 04/05/18 Insulin Aspart* (Novolog Insulin Pen*) 100 Unit/Ml Soln, 10 UNIT SC WITH DINNER for 30 Days, #1 EA Prov:RAMIRO MORRIS MD 04/05/18 Insulin Aspart* (Novolog Insulin Pen*) 100 Unit/Ml Soln, 6 UNIT SC WITH BREAKFAST for 30 Days, #1 EA Prov:RAMIRO MORRIS MD 04/05/18 Fluticasone-Vilanterol (Breo Ellipta Inhaler) 100-25 Mcg/Actuation Aer.pow.ba, 1 INH INH DAILY for 30 Days, #1 EA Prov:RAMIRO MORRIS MD 04/05/18 Aspirin (Aspirin) 81 Mg Chew, 81 MG PO DAILY for 30 Days, #30 TAB Prov:RAMIRO MORRIS MD 04/05/18 Metoprolol Tartrate* (Lopressor*) 25 Mg Tab, 75 MG PO BID for 30 Days, #60 TAB Prov:RAMIRO MORRIS MD 04/05/18 Hydralazine Hcl* (Apresoline*) 50 Mg Tab, 50 MG PO Q8 for 30 Days, #90 TAB Prov:RAMIRO MORRIS MD 04/05/18 Diltiazem Hcl* (Cardizem CD*) 120 Mg Cap.sr.24h, 120 MG PO BID for 30 Days, #60 TAB Prov:RAMIRO MORRIS MD 04/05/18 Apixaban* (Eliquis*) 5 Mg Tablet, 2.5 MG PO BID for 30 Days, #60 TAB Prov:RAMIRO MORRIS MD 04/05/18 Tiotropium [place]* (Spiriva*) 18 Mcg Cap.w.dev, 1 INH INH DAILY for 30 Days, #30 CAP Prov:RAMIRO MORRIS MD 04/05/18 Psyllium Husk (Metamucil) 0.52 Gm Capsule, 0.52 GM PO DAILY for 30 Days, #30 CAP Prov:RAMIRO MORRIS MD 04/19/17 Digoxin* (Digitek*) 0.125 Mg Tab, 0.125 MG PO DAILY@13, #30 3 Refills Prov:DALLAS PICKETT 03/22/15 Reported Medications Albuterol Sulfate* (Proair HFA*) 8.5 Gm Hfa.aer.ad, 2 PUFF INH Q6H PRN for WHEEZING AND SOB, INH 03/16/15 Omeprazole* (Omeprazole*) 20 Mg Capsule.dr, 20 MG PO DAILY, CAP 03/16/15 Medications Current Medications IV Flush (NS 3 ml) 3 ml PER PROTOCOL IV ; Start 11/16/18 at 19:30 Ondansetron HCl (Zofran Inj) 4 mg Q6H PRN IV NAUSEA/VOMITING; Start 11/16/18 at 19:30 Acetaminophen (Tylenol Tab) 650 mg Q6H PRN PO .PAIN 1-3 OR TEMP; Start 11/16/18 at 19:30 Acetaminophen/ Hydrocodone Bitart ([place] (5/325)) 1 tab Q6H PRN PO .MOD PAIN 4- 6 Last administered on 12/05/18at 23:01; Admin Dose 1 TAB; Start 11/16/18 at 1 9:30 Docusate Sodium (Colace) 100 mg Q12H PRN PO .CONSTIPATION; Start 11/16/18 at 19:30 Zolpidem Tartrate (Ambien) 5 mg QHS PRN PO .INSOMNIA Last administered on 11/22/18at 23:20; Admin Dose 5 MG; Start 11/16/18 at 19:30 Clotrimazole (Lotrimin Cr) 1 applic BID TOP Last administered on 12/06/18 08: 13; Admin Dose 1 APPLIC; Start 11/16/18 at 21:00 Fluticasone/ Vilanterol (Breo Ellipta 100-25 Mcg Inh) 1 inh DAILY INH Last administered on 12/06/18 08:13; Admin Dose 1 INH; Start 11/17/18 at 12:00 Albuterol/ Ipratropium (Duoneb) 3 ml Q4H RESP THERAPY HHN Last administered on 12/06/18 12:30; Admin Dose 3 ML; Start 11/18/18 at 13:00 Metoprolol Tartrate (Lopressor) 5 mg Q4H PRN IV HR>110 Hold SBP<100; Start 11/23/18 at 13:00 IV Flush (NS 10 ml) 10 ml PRN PRN IV IV PROTOCOL; Start 11/24/18 at 16:00 Miscellaneous Information 1 ea NOTE XX Last administered on 11/29/18 12:55; Admin Dose 1 EA; Start 11/24/18 at 20:30 Glucose (Glutose) 15 gm Q15M PRN PO DECREASED GLUCOSE; Start 11/24/18 at 20:30 Glucose (Glutose) 22.5 gm Q15M PRN PO DECREASED GLUCOSE; Start 11/24/18 at 20:30 Dextrose (D50w Syringe) 25 ml Q15M PRN IV DECREASED GLUCOSE Last administered on 11/26/18at 01:40; Admin Dose 25 ML; Start 11/24/18 at 20:30 Dextrose (D50w Syringe) 50 ml Q15M PRN IV DECREASED GLUCOSE Last administered on 11/29/18 06:01; Admin Dose 50 ML; Start 11/24/18 at 20:30 Glucagon (Glucagen) 1 mg Q15M PRN IM DECREASED GLUCOSE; Start 11/24/18 at 20:30 Glucose (Glutose) 15 gm Q15M PRN BUCCAL DECREASED GLUCOSE; Start 11/24/18 at 20:30 Insulin Aspart (Novolog Insulin Pen) NOVOLOG *MILD* ALGORITHM WITH MEALS BEDTIME SC Last administered on 12/06/18 08:21; Admin Dose 2 UNIT; Start 11/28/18 at 11:30 Metoprolol Tartrate (Lopressor) 50 mg BID PO Last administered on 12/06/18 08:16; Admin Dose 50 MG; Start 11/28/18 at 21:00 Furosemide (Lasix) 40 mg BID DIURETICS IV Last administered on 12/06/18at 06:55; Admin Dose 40 MG; Start 11/30/18 at 18:00 Assessment/Plan Assessment/Plan (Daily) IMP: 1. Status post acute hypoxemic respiratory failure secondary to volume overload 2. Acute renal failure now hemodialysis dependent 3. History of pulmonary embolus on Eliquis 4. Congestive cardiac failure with aortic stenosis 5. Encephalopathy toxic metabolic now resolving RECS: 1. Continue hemodialysis per nephrology 2. Monitor H&H 3. Aspiration precautions 4. Wound care 5. PT evaluation SNF placement. ISAEL MANTILLA MD Dec 06, 2018 14:06
--- NOTE | 2018-12-06 14:26 | PN ---
Date/Time of Note Date/Time of Note DATE: 12/06/18 TIME: 14:24 Assessment/Plan VTE Prophylaxis Risk score (from Ns)>0 risk: 11 SCD applied (from Ns): Yes Pharmacological prophylaxis: NA/contraindicated Pharm contraindication: thrombocytopenia Lines/Catheters IV Catheter Type (from Nrsg): PICC Line Central line still needed: Yes Urinary Cath still in place: No Assessment/Plan Assessment/Plan 83 yo female with , diastolic CHF with acute respiratory failure and volume overload from CHF and BRIE. She was transferred to ICU and was at risk for intubation. HD was initiated and patient has improved markedly. Respiratory status stable. Remains a bit hypervolemic. Holding HD now. Kidneys recovering. 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 Stop heparin products. Unfortunately she refused labs - Fortunately platelets now recovering. Acute respiratory failure 2/2 volume overload: - patient's status has improved, now stable on NC - Continue O2 by NC BRIE: - Kidneys recovering with good urine output - diuretics per renal - Holding off on HD A Fib: - Hold heparin given hematuria and thrombocytopenia Anemia - Transfuse to Hgb>7 or for symptomatic anemia Cirrhosis Septic encephelopathy, improving Sepsis - will stop abx at this point, no clear source DNR Discharge planning: Patient can be discharged when volume status is optimized and platelet situation resolved. Likely will need subacute rehab. Result Diagram: 12/06/1851212/06/18512 Subjective 24 Hr Interval Summary Free Text/Dictation No acute overnight events. Continues to complain of nonspecific chest and leg pain. Complains that she is not getting treated for pain; according to nursing she hasn't asked for analgesia. Got 1 unit pRBCs yesterday. Exam/Review of Systems Exam Vitals Vital Signs Date Temp Pulse Resp B/P (MAP) Pulse Ox O2 O2 Flow FiO2 Time Delivery Rate 12/06/18 83 14 96 Nasal 3.0 12:20 Cannula 12/06/18 98.0 137/64 11:19 (88) Intake and Output 12/05/18 12/05/18 12/06/18 1515:00 23:00 07:00 IntakeIntake Total 800 ml 1100 ml BalanceBalance 800 ml 1100 ml Exam GENERAL: Obese woman lying in bed in no acute distress. HEENT: Moist mucous membranes NECK: Supple, no thyromegaly. LUNGS: Mechanical breath sounds equal bilaterally. CARDIOVASCULAR: S1, S2 heard. No rubs or gallops. ABDOMEN: Soft, nontender, nondistended. Normal bowel sounds. No rebound or guarding. MUSCULOSKELETAL: bilateral LE edema, 1+ Results Results 24hrs Laboratory Tests Test 12/05/18 17:16 12/05/18 19:59 12/06/18 05:13 12/06/18 08:12 Bedside Glucose 238 H 180 200 White Blood Count 4.1 L Red Blood Count 3.00 L Hemoglobin 7.3 L Hematocrit 23.6 L Mean Corpuscular 78.7 L Volume Mean Corpuscular 24.3 L Hemoglobin Mean Corpuscular 30.9 L Hemoglobin Concent Red Cell 20.3 H Distribution Width Platelet Count 71 #L Mean Platelet Volume Immature 1.200 H Granulocytes % Neutrophils % 71.1 Lymphocytes % 16.3 Monocytes % 9.5 Eosinophils % 1.7 Basophils % 0.2 Nucleated Red Blood 0.0 Cells % Immature 0.050 H Granulocytes # Neutrophils # 2.9 Lymphocytes # 0.7 L Monocytes # 0.4 Eosinophils # 0.1 Basophils # 0.0 Nucleated Red Blood 0.0 Cells # Sodium Level 142 Potassium Level 4.3 Chloride Level 102 Carbon Dioxide Level 32 H Anion Gap 8 Blood Urea Nitrogen 69 H Creatinine 2.06 H Est Glomerular Filtrat Rate mL/min Glucose Level 222 H Calcium Level 8.5 Phosphorus Level 2.9 Magnesium Level 1.8 Test 12/06/18 12:00 Bedside Glucose 132 Medications Medication Current Medications IV Flush (NS 3 ml) 3 ml PER PROTOCOL IV ; Start 11/16/18 at 19:30 Ondansetron HCl (Zofran Inj) 4 mg Q6H PRN IV NAUSEA/VOMITING; Start 11/16/18 at 19:30 Acetaminophen (Tylenol Tab) 650 mg Q6H PRN PO .PAIN 1-3 OR TEMP; Start 11/16/18 at 19:30 Acetaminophen/ Hydrocodone Bitart ([place] (5/325)) 1 tab Q6H PRN PO .MOD PAIN 4- 6 Last administered on 12/05/18at 23:01; Admin Dose 1 TAB; Start 11/16/18 at 19:30 Docusate Sodium (Colace) 100 mg Q12H PRN PO .CONSTIPATION; Start 11/16/18 at 19:30 Zolpidem Tartrate (Ambien) 5 mg QHS PRN PO .INSOMNIA Last administered on 11/22/18 23:20; Admin Dose 5 MG; Start 11/16/18 at 19:30 Clotrimazole (Lotrimin Cr) 1 applic BID TOP Last administered on 12/06/18at 08:13; Admin Dose 1 APPLIC; Start 11/16/18 at 21:00 Fluticasone/ Vilanterol (Breo Ellipta 100-25 Mcg Inh) 1 inh DAILY INH Last administered on 12/06/18at 08:13; Admin Dose 1 INH; Start 11/17/18 at 12:00 Albuterol/ Ipratropium (Duoneb) 3 ml Q4H RESP THERAPY HHN Last administered on 12/06/18at 12:30; Admin Dose 3 ML; Start 11/18/18 at 13:00 Metoprolol Tartrate (Lopressor) 5 mg Q4H PRN IV HR>110 Hold SBP<100; Start 11/23/18 at 13:00 IV Flush (NS 10 ml) 10 ml PRN PRN IV IV PROTOCOL; Start 11/24/18 at 16:00 Miscellaneous Information 1 ea NOTE XX Last administered on 11/29/18at 12:55; Admin Dose 1 EA; Start 11/24/18 at 20:30 Glucose (Glutose) 15 gm Q15M PRN PO DECREASED GLUCOSE; Start 11/24/18 at 20:30 Glucose (Glutose) 22.5 gm Q15M PRN PO DECREASED GLUCOSE; Start 11/24/18 at 20:30 Dextrose (D50w Syringe) 25 ml Q15M PRN IV DECREASED GLUCOSE Last administered on 11/26/18at 01:40; Admin Dose 25 ML; Start 11/24/18 at 20:30 Dextrose (D50w Syringe) 50 ml Q15M PRN IV DECREASED GLUCOSE Last administered on 11/29/18at 06:01; Admin Dose 50 ML; Start 11/24/18 at 20:30 Glucagon (Glucagen) 1 mg Q15M PRN IM DECREASED GLUCOSE; Start 11/24/18 at 20:30 Glucose (Glutose) 15 gm Q15M PRN BUCCAL DECREASED GLUCOSE; Start 11/24/18 at 20:30 Insulin Aspart (Novolog Insulin Pen) NOVOLOG *MILD* ALGORITHM WITH MEALS BEDTIME SC Last administered on 12/06/18at 08:21; Admin Dose 2 UNIT; Start 11/28/18 at 11:30 Metoprolol Tartrate (Lopressor) 50 mg BID PO Last administered on 12/06/18 08:16; Admin Dose 50 MG; Start 11/28/18 at 21:00 Furosemide (Lasix) 40 mg BID DIURETICS IV Last administered on 12/06/18at 06:55; Admin Dose 40 MG; Start 11/30/18 at 18:00 GHASSAN INIGUEZ MD Dec 06, 2018 14:26
[2018-12-06] MEDS: HYDROCODONE/APAP (5/325) TAB PO PRN (20:37)
[2018-12-07] VITALS (10 sets, daily range): BP systolic 123–149; BP diastolic 58–71; PULSE 66–87; RESP 17–20
[2018-12-07] MEDS: ALBUTEROL/IPRATROPIUM (NEB) 3 ML AMP HHN SCH ×3 (01:54→08:12)
[2018-12-07] MEDS: HYDROCODONE/APAP (5/325) TAB PO PRN (03:41)
[2018-12-07] MEDS: FUROSEMIDE 40 MG INJ IV SCH ×2 (06:57→18:54)
[2018-12-07] MEDS: INSULIN ASPART [NOVOLOG] 3 ML PEN SC SCH ×4 (07:47→20:42)
[2018-12-07] MEDS: FLUTICASONE/VILANTEROL 100-25 INH SCH (08:27)
[2018-12-07] MEDS: CLOTRIMAZOLE 1% 30 GM CR TOP SCH ×3 (08:28→20:49)
[2018-12-07] MEDS: METOPROLOL 50 MG TAB PO SCH ×2 (08:28→20:41)
--- NOTE | 2018-12-07 09:06 | PN ---
DATE: 12/07/2018 SUBJECTIVE: The patient is stable, no events overnight. No fevers, chills, nausea, vomiting. OBJECTIVE: VITAL SIGNS: Blood pressure is 149/71, pulse 75, respirations 18, temperature 98.2. HEENT: Head is normocephalic. NECK: Supple. HEART: Regular rate. LUNGS: Show diminished breath sounds at the base. ABDOMEN: Soft, nontender to palpation. No rebound or guarding. EXTREMITIES: Negative for clubbing, cyanosis. The patient is positive for edema. DERMATOLOGIC: No rashes. MUSCULOSKELETAL: No joint effusion. NEUROLOGIC: No change in exam. ASSESSMENT AND PLAN: 1. Nonoliguric acute kidney injury on top of chronic kidney disease with previous baseline creatinin e of 1.5 mg/dL. Etiology of acute kidney injury is secondary to hemodynamics, acute tubular necrosis . The patient was initiated on dialysis; however, dialysis has been held as the patient showed signs of renal recovery. Anticipate discontinuing the Noel catheter. We will follow up renal panel to day. Continue current diuretic regimen. 2. Volume overload secondary to congestive heart failure. Continue current diuretic regimen. 3. Anemia. Monitor hemoglobin and hematocrit levels. 4. Mineral bone disorder, monitor calcium and phosphorus levels. 5. Acute respiratory failure secondary to congestive heart failure, reactive airway disease. The pa tient is clinically improving. Continue diuretic therapy, supplemental oxygen. 6. Atrial fibrillation. Continue medical management. 7. Diabetes. Continue current insulin regimen. 8. Acute encephalopathy, etiology is toxic metabolic. 9. Aortic stenosis. Continue to monitor. Dictated By: JOCELINE MCCALLUM DO NR/NTS Conf#: [id number] DID#: [id number] CC: JABIER SEBASTIAN MD;*EndCC*
[2018-12-07] MEDS ORDERED: ALBUTEROL/IPRATROPIUM (NEB) 3 ML AMP HHN PRN (10:00)
[2018-12-07] MEDS: METOLAZONE 2.5 MG TAB PO SCH (10:06)
--- NOTE | 2018-12-07 11:47 | CONS ---
Assessment/Plan Assessment/Plan Hospital Course (Demo Recall) IMP: 1.AF with mild RVR-rate controlled on current dose of BB 2.Renal failure 3.hyperkalemia 4.Bradycardia 5.CHF-diastolic acute on chronic EF 50% by echo this admit 6.HTN 7.-mod to severe by echo 08/09 8. 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 and platelet count -Continue abx's and f/u cx data -Follow MS -HD now held and would follow volume status closely on lasix IV BID and metolazone Consultation Date/Type/Reason Admit Date/Time Nov 16, 2018 at 17:17 Initial Consult Date 11/20/18 Type of Consult Cardiology Reason for Consultation AF Requesting Provider: JABIER SEBASTIAN Date/Time of Note DATE: 12/07/18 TIME: 11:44 Exam/Review of Systems Vital Signs Vitals Vital Signs Date Temp Pulse Resp B/P (MAP) Pulse Ox O2 O2 Flow FiO2 Time Delivery Rate 12/07/18 97.5 78 18 139/60 100 11:28 (86) 12/07/18 Nasal 3.0 08:30 Cannula 12/07/18 27 01:58 Intake and Output 12/06/18 12/06/18 12/07/18 1515:00 23:00 07:00 IntakeIntake Total 700 ml 1000 ml 1150 ml BalanceBalance 700 ml 1000 ml 1150 ml Exam Exam Review of Systems: CONSTITUTIONAL: No fevers, chills. PULMONARY: cough and sob CARDIOVASCULAR: No chest pain/palpitations GASTROINTESTINAL: No nausea/vomiting. GENITOURINARY: No hematuria/dysuria. MUSCULOSKELETAL: No myagias/arthalgias. PSYCHIATRIC: The patient denies depression. NEUROLOGIC: No weakness Constitutional: alert Psych: no complaints Head: normocephalic Eyes: nl conjunctiva ENMT: mucosa pink and moist Neck: supple, jvd (9 cm water) Respiratory: diminished breath sounds (at bases/B) Cardiovascular: regular rate and rhythm Gastrointestinal: soft, non-tender Musculoskeletal: muscle tone (normal) Extremities: edema (none) Labs Result Diagram: 12/06/1813 12/06/18512 Results 24hrs Laboratory Tests Test 3/17/19 12:00 12/06/18 17:24 12/06/18 20:34 12/07/18 03:22 Bedside Glucose 132 237 H 192 211 Test 12/07/18 07:32 12/07/18 08:45 12/07/18 11:31 Bedside Glucose 176 239 H Lab Scanned BLOOD TRANSFUSIO Report N Medications Medications Current Medications IV Flush (NS 3 ml) 3 ml PER PROTOCOL IV ; Start 11/16/18 at 19:30 Ondansetron HCl (Zofran Inj) 4 mg Q6H PRN IV NAUSEA/VOMITING; Start 11/16/18 at 19:30 Acetaminophen (Tylenol Tab) 650 mg Q6H PRN PO .PAIN 1-3 OR TEMP; Start 11/16/18 at 19:30 Acetaminophen/ Hydrocodone Bitart ([place] (5/325)) 1 tab Q6H PRN PO .MOD PAIN 4- 6 Last administered on 12/07/18at 03:41; Admin Dose 1 TAB; Start 11/16/18 at 19:30 Docusate Sodium (Colace) 100 mg Q12H PRN PO .CONSTIPATION; Start 11/16/18 at 19:30 Zolpidem Tartrate (Ambien) 5 mg QHS PRN PO .INSOMNIA Last administered on 11/22/18 23:20; Admin Dose 5 MG; Start 11/16/18 at 19:30 Clotrimazole (Lotrimin Cr) 1 applic BID TOP Last administered on 12/07/18at 08:28; Admin Dose 1 APPLIC; Start 11/16/18 at 21:00 Fluticasone/ Vilanterol (Breo Ellipta 100-25 Mcg Inh) 1 inh DAILY INH Last administered on 12/07/18 08:27; Admin Dose 1 INH; Start 11/17/18 at 12:00 Metoprolol Tartrate (Lopressor) 5 mg Q4H PRN IV HR>110 Hold SBP<100; Start 11/23/18 at 13:00 IV Flush (NS 10 ml) 10 ml PRN PRN IV IV PROTOCOL; Start 11/24/18 at 16:00 Miscellaneous Information 1 ea NOTE XX Last administered on 11/29/18at 12:55; Admin Dose 1 EA; Start 11/24/18 at 20:30 Glucose (Glutose) 15 gm Q15M PRN PO DECREASED GLUCOSE; Start 11/24/18 at 20:30 Glucose (Glutose) 22.5 gm Q15M PRN PO DECREASED GLUCOSE; Start 11/24/18 at 20:30 Dextrose (D50w Syringe) 25 ml Q15M PRN IV DECREASED GLUCOSE Last administered on 11/26/18at 01:40; Admin Dose 25 ML; Start 11/24/18 at 20:30 Dextrose (D50w Syringe) 50 ml Q15M PRN IV DECREASED GLUCOSE Last administered on 11/29/18at 06:01; Admin Dose 50 ML; Start 11/24/18 at 20:30 Glucagon (Glucagen) 1 mg Q15M PRN IM DECREASED GLUCOSE; Start 11/24/18 at 20:30 Glucose (Glutose) 15 gm Q15M PRN BUCCAL DECREASED GLUCOSE; Start 11/24/18 at 20:30 Insulin Aspart (Novolog Insulin Pen) NOVOLOG *MILD* ALGORITHM WITH MEALS BEDTIME SC Last administered on 12/07/18at 07:47; Admin Dose 1 UNIT; Start 11/28/18 at 11:30 Metoprolol Tartrate (Lopressor) 50 mg BID PO Last administered on 12/07/18 08:28; Admin Dose 50 MG; Start 11/28/18 at 21:00 Furosemide (Lasix) 40 mg BID DIURETICS IV Last administered on 12/07/18at 06:57; Admin Dose 40 MG; Start 11/30/18 at 18:00 Metolazone (Zaroxolyn) 2.5 mg DAILY PO Last administered on 12/07/18at 10:06; Admin Dose 2.5 MG; Start 12/07/18 at 09:00 Albuterol/ Ipratropium (Duoneb) 3 ml Q4H RESP THERAPY PRN HHN SHORTNESS OF BREATH; Start 12/07/18 at 10:00 GHASSAN SHERMAN 18, 2019 11:47
--- NOTE | 2018-12-07 12:53 | PN ---
Date/Time of Note Date/Time of Note DATE: 12/07/18 TIME: 12:47 Assessment/Plan VTE Prophylaxis Risk score (from Ns)>0 risk: 14 SCD applied (from Ns): Yes Pharmacological prophylaxis: heparin Lines/Catheters IV Catheter Type (from Nrsg): PICC Line Central line still needed: Yes Urinary Cath still in place: No Assessment/Plan Hospital Course 83 yo female with , diastolic CHF with acute respiratory failure and volume overload from CHF and BRIE. She was transferred to ICU and was at risk for intubation. HD was intiated and patient has improved markedly. Respiratory status stable. Remains a bit hypervolemic. Holding HD now. Kidneys recovering. Now wtih thrombocytopenia concerning for HIT Thrombocytopenia: - Concerning for HIT. Stopped heparin products and aspirin. Trend platelets Acute respiratory failure 2/2 volume overload: - patient's status has improved, now stable on NC - Continue O2 by NC BRIE: - Kidneys recovering with good urine output - diuretics per renal - Holding off on HD A Fib: - Hold heparin given hematuria and thrombocytopenia Cirrhosis Septic encephelopathy, improving Sepsis - will stop abx at this point, no clear source DNR Dischage plannign: Patient can be discharged when volume status is optimzied and platelet situation resolved. Likely will need subacute rehab. Result Diagram: 12/06/18 0513 12/06/18 0513 Results 24hrs Laboratory Tests Test 12/06/18 17:24 12/06/18 20:34 12/07/18 03:22 12/07/18 07:32 Bedside Glucose 237 H 192 211 176 Test 12/07/18 08:45 12/07/18 11:31 Lab Scanned BLOOD TRANSFUSIO Report N Bedside Glucose 239 H Subjective 24 Hr Interval Summary Free Text/Dictation breathing comfortably still with cough Exam/Review of Systems Exam Vitals Vital Signs Date Temp Pulse Resp B/P (MAP) Pulse Ox O2 O2 Flow FiO2 Time Delivery Rate 12/07/18 81 12:05 12/07/18 97.5 18 139/60 100 11:28 (86) 12/07/18 Nasal 3.0 08:30 Cannula 12/07/18 27 01:58 Intake and Output 12/06/18 12/06/18 12/07/18 1515:00 23:00 07:00 IntakeIntake Total 700 ml 1000 ml 1150 ml BalanceBalance 700 ml 1000 ml 1150 ml Exam Breathing comfortably + JVD Rhonchi Abdomen soft nt Results Results 24hrs Laboratory Tests Test 12/06/18 17:24 12/06/18 20:34 12/07/18 03:22 12/07/18 07:32 Bedside Glucose 237 H 192 211 176 Test 12/07/18 08:45 12/07/18 11:31 Lab Scanned BLOOD TRANSFUSIO Report N Bedside Glucose 239 H Medications Medication Current Medications IV Flush (NS 3 ml) 3 ml PER PROTOCOL IV ; Start 11/16/18 at 19:30 Ondansetron HCl (Zofran Inj) 4 mg Q6H PRN IV NAUSEA/VOMITING; Start 11/16/18 at 19:30 Acetaminophen (Tylenol Tab) 650 mg Q6H PRN PO .PAIN 1-3 OR TEMP; Start 11/16/18 at 19:30 Acetaminophen/ Hydrocodone Bitart ([place] (5/325)) 1 tab Q6H PRN PO .MOD PAIN 4- 6 Last administered on 12/07/18at 03:41; Admin Dose 1 TAB; Start 11/16/18 at 19:30 Docusate Sodium (Colace) 100 mg Q12H PRN PO .CONSTIPATION; Start 11/16/18 at 19:30 Zolpidem Tartrate (Ambien) 5 mg QHS PRN PO .INSOMNIA Last administered on 23:20; Admin Dose 5 MG; Start 11/16/18 at 19:30 Clotrimazole (Lotrimin Cr) 1 applic BID TOP Last administered on 12/07/18 08:28; Admin Dose 1 APPLIC; Start 11/16/18 at 21:00 Fluticasone/ Vilanterol (Breo Ellipta 100-25 Mcg Inh) 1 inh DAILY INH Last administered on 12/07/18 08:27; Admin Dose 1 INH; Start 11/17/18 at 12:00 Metoprolol Tartrate (Lopressor) 5 mg Q4H PRN IV HR>110 Hold SBP<100; Start 11/23/18 at 13:00 IV Flush (NS 10 ml) 10 ml PRN PRN IV IV PROTOCOL; Start 11/24/18 at 16:00 Miscellaneous Information 1 ea NOTE XX Last administered on 11/29/18at 12:55; Admin Dose 1 EA; Start 11/24/18 at 20:30 Glucose (Glutose) 15 gm Q15M PRN PO DECREASED GLUCOSE; Start 11/24/18 at 20:30 Glucose (Glutose) 22.5 gm Q15M PRN PO DECREASED GLUCOSE; Start 11/24/18 at 20:30 Dextrose (D50w Syringe) 25 ml Q15M PRN IV DECREASED GLUCOSE Last administered on 11/26/18at 01:40; Admin Dose 25 ML; Start 11/24/18 at 20:30 Dextrose (D50w Syringe) 50 ml Q15M PRN IV DECREASED GLUCOSE Last administered on 11/29/18at 06:01; Admin Dose 50 ML; Start 11/24/18 at 20:30 Glucagon (Glucagen) 1 mg Q15M PRN IM DECREASED GLUCOSE; Start 11/24/18 at 20:30 Glucose (Glutose) 15 gm Q15M PRN BUCCAL DECREASED GLUCOSE; Start 11/24/18 at 20:30 Insulin Aspart (Novolog Insulin Pen) NOVOLOG *MILD* ALGORITHM WITH MEALS BEDTI ME SC Last administered on 12/07/18at 12:10; Admin Dose 3 UNIT; Start 11/28/18 at 11:30 Metoprolol Tartrate (Lopressor) 50 mg BID PO Last administered on 12/07/18 08:28; Admin Dose 50 MG; Start 11/28/18 at 21:00 Furosemide (Lasix) 40 mg BID DIURETICS IV Last administered on 12/07/18at 06:57; Admin Dose 40 MG; Start 11/30/18 at 18:00 Metolazone (Zaroxolyn) 2.5 mg DAILY PO Last administered on 12/07/18at 10:06; Admin Dose 2.5 MG; Start 12/07/18 at 09:00 Albuterol/ Ipratropium (Duoneb) 3 ml Q4H RESP THERAPY PRN HHN SHORTNESS OF BREATH; Start 12/07/18 at 10:00 HARIS GREEN MD Dec 07, 2018 12:53
--- NOTE | 2018-12-07 12:54 | CONS ---
Assessment/Plan Assessment/Plan Hospital Course (Demo Recall) Patient is alert feels good Antimicrobial: none Indwelling: Right femoral Noel, Soto catheter. PICC Physical examination: Well-developed morbidly obese -[place] woman who in no distress. Head atraumatic normocephalic sclera nonicteric. Neck is supple. Chest rise symmetrical breath sounds diminished to bases. Heart: S1- S2.. Abdomen obese soft, bowel sounds present. Extremities: Bilateral lower extremities edema erythema and multiple wounds Assessment: 1. Acute hypoxemic respiratory failure secondary to pulmonary edema and CHF exacerbation 2. S/p sepsis, present on admission 3. 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 S/p Urinary tract infection 5. Staph bacteremia consistent with contaminant 6. Morbid obesity 7. Atrial fibrillation 8. Diabetes 9. Acute kidney failure==> HD on hold 7. Pancytopenia Plan: Patient remains stable, pending discharge to facility Consultation Date/Type/Reason Admit Date/Time Nov 16, 2018 at 17:17 Initial Consult Date Type of Consult id Requesting Provider: JABIER SEBASTIAN Date/Time of Note DATE: 12/07/18 TIME: 12:53 Exam/Review of Systems Exam Vitals Vital Signs Date Temp Pulse Resp B/P (MAP) Pulse Ox O2 O2 Flow FiO2 Time Delivery Rate 12/07/18 81 12:05 12/07/18 97.5 18 139/60 100 11:28 (86) 12/07/18 Nasal 3.0 08:30 Cannula 12/07/18 27 01:58 Intake and Output 12/06/18 12/06/18 12/07/18 1515:00 23:00 07:00 IntakeIntake Total 700 ml 1000 ml 1150 ml BalanceBalance 700 ml 1000 ml 1150 ml Results Result Diagram: 12/06/18 0513 12/06/18 0513 Results 24hrs Laboratory Tests Test 12/06/18 17:24 12/06/18 20:34 12/07/18 03:22 12/07/18 07:32 Bedside Glucose 237 H 192 211 176 Test 12/07/18 08:45 12/07/18 11:31 Lab Scanned BLOOD TRANSFUSIO Report N Bedside Glucose 239 H Medications Medication Current Medications IV Flush (NS 3 ml) 3 ml PER PROTOCOL IV ; Start 11/16/18 at 19:30 Ondansetron HCl (Zofran Inj) 4 mg Q6H PRN IV NAUSEA/VOMITING; Start 11/16/18 at 19:30 Acetaminophen (Tylenol Tab) 650 mg Q6H PRN PO .PAIN 1-3 OR TEMP; Start 11/16/18 at 19:30 Acetaminophen/ Hydrocodone Bitart ([place] (5/325)) 1 tab Q6H PRN PO .MOD PAIN 4- 6 Last administered on 12/07/18at 03:41; Admin Dose 1 TAB; Start 11/16/18 at 19:30 Docusate Sodium (Colace) 100 mg Q12H PRN PO .CONSTIPATION; Start 11/16/18 at 19:30 Zolpidem Tartrate (Ambien) 5 mg QHS PRN PO .INSOMNIA Last administered on 11/22/18 23:20; Admin Dose 5 MG; Start 11/16/18 at 19:30 Clotrimazole (Lotrimin Cr) 1 applic BID TOP Last administered on 12/07/18at 0 8:28; Admin Dose 1 APPLIC; Start 11/16/18 at 21:00 Fluticasone/ Vilanterol (Breo Ellipta 100-25 Mcg Inh) 1 inh DAILY INH Last administered on 12/07/18 08:27; Admin Dose 1 INH; Start 11/17/18 at 12:00 Metoprolol Tartrate (Lopressor) 5 mg Q4H PRN IV HR>110 Hold SBP<100; Start 11/23/18 at 13:00 IV Flush (NS 10 ml) 10 ml PRN PRN IV IV PROTOCOL; Start 11/24/18 at 16:00 Miscellaneous Information 1 ea NOTE XX Last administered on 11/29/18at 12:55; Admin Dose 1 EA; Start 11/24/18 at 20:30 Glucose (Glutose) 15 gm Q15M PRN PO DECREASED GLUCOSE; Start 11/24/18 at 20:30 Glucose (Glutose) 22.5 gm Q15M PRN PO DECREASED GLUCOSE; Start 11/24/18 at 20:30 Dextrose (D50w Syringe) 25 ml Q15M PRN IV DECREASED GLUCOSE Last administered on 11/26/18at 01:40; Admin Dose 25 ML; Start 11/24/18 at 20:30 Dextrose (D50w Syringe) 50 ml Q15M PRN IV DECREASED GLUCOSE Last administered on 11/29/18 06:01; Admin Dose 50 ML; Start 11/24/18 at 20:30 Glucagon (Glucagen) 1 mg Q15M PRN IM DECREASED GLUCOSE; Start 11/24/18 at 20:30 Glucose (Glutose) 15 gm Q15M PRN BUCCAL DECREASED GLUCOSE; Start 11/24/18 at 20:30 Insulin Aspart (Novolog Insulin Pen) NOVOLOG *MILD* ALGORITHM WITH MEALS BEDTIME SC Last administered on 12/07/18at 12:10; Admin Dose 3 UNIT; Start 11/28/18 at 11:30 Metoprolol Tartrate (Lopressor) 50 mg BID PO Last administered on 12/07/18 08:28; Admin Dose 50 MG; Start 11/28/18 at 21:00 Furosemide (Lasix) 40 mg BID DIURETICS IV Last administered on 12/07/18 06:57; Admin Dose 40 MG; Start 11/30/18 at 18:00 Metolazone (Zaroxolyn) 2.5 mg DAILY PO Last administered on 12/07/18at 10:06; Admin Dose 2.5 MG; Start 12/07/18 at 09:00 Albuterol/ Ipratropium (Duoneb) 3 ml Q4H RESP THERAPY PRN HHN SHORTNESS OF BREATH; Start 12/07/18 at 10:00 ROCHELLE STERLING NP Dec 07, 2018 12:54
--- NOTE | 2018-12-07 13:50 | CONS ---
Consult Date/Type/Reason Admit Date/Time Nov 16, 2018 at 17:17 Initial Consult Date Type of Consult Pulmonary Requesting Provider: JABIER SEBASTIAN Date/Time of Note DATE: 12/07/18 TIME: 13:49 Subjective Patient comfortable. No new events. Objective Vital Signs Date Temp Pulse Resp B/P (MAP) Pulse Ox O2 O2 Flow FiO2 Time Delivery Rate 12/07/18 81 12:05 12/07/18 97.5 18 139/60 100 11:28 (86) 12/07/18 Nasal 3.0 08:30 Cannula 12/07/18 27 01:58 Intake and Output 12/06/18 12/06/18 12/07/18 1515:00 23:00 07:00 IntakeIntake Total 700 ml 1000 ml 1150 ml BalanceBalance 700 ml 1000 ml 1150 ml Exam GENERAL: Elderly lady comfortable at rest no acute distress VITAL SIGNS: per chart NECK: Supple. No JVD or lymphadenopathy. CARDIAC EXAM: S1, S2. No added sounds or murmurs. CHEST: clear bilaterally, No added sounds, rales or wheezes ABDOMEN: Soft, nontender. No guarding or rebound. EXTREMITIES: No cyanosis, clubbing or edema. NEUROLOGIC: Generalized weakness. No focal deficits. Vent Setting Fraction of Inspired Oxygen pe: 27 Results/Medications Result Diagram: 12/06/18 0513 12/06/18 0513 Results 24 hrs Laboratory Tests Test 12/06/18 17:24 12/06/18 20:34 12/07/18 03:22 12/07/18 07:32 Bedside Glucose 237 H 192 211 176 Test 12/07/18 08:45 12/07/18 11:31 Lab Scanned BLOOD TRANSFUSIO Report N Bedside Glucose 239 H Medications Current Medications IV Flush (NS 3 ml) 3 ml PER PROTOCOL IV ; Start 11/16/18 at 19:30 Ondansetron HCl (Zofran Inj) 4 mg Q6H PRN IV NAUSEA/VOMITING; Start 11/16/18 at 19:30 Acetaminophen (Tylenol Tab) 650 mg Q6H PRN PO .PAIN 1-3 OR TEMP; Start 11/16/18 at 19:30 Acetaminophen/ Hydrocodone Bitart ([place] (5/325)) 1 tab Q6H PRN PO .MOD PAIN 4- 6 Last administered on 12/07/18at 03:41; Admin Dose 1 TAB; Start 11/16/18 at 19:30 Docusate Sodium (Colace) 100 mg Q12H PRN PO .CONSTIPATION; Start 11/16/18 at 19:30 Zolpidem Tartrate (Ambien) 5 mg QHS PRN PO .INSOMNIA Last administered on 11/22/18 23:20; Admin Dose 5 MG; Start 11/16/18 at 19:30 Clotrimazole (Lotrimin Cr) 1 applic BID TOP Last administered on 12/07/18 08:28; Admin Dose 1 APPLIC; Start 11/16/18 at 21:00 Fluticasone/ Vilanterol (Breo Ellipta 100-25 Mcg Inh) 1 inh DAILY INH Last administered on 12/07/18 08:27; Admin Dose 1 INH; Start 11/17/18 at 12:00 Metoprolol Tartrate (Lopressor) 5 mg Q4H PRN IV HR>110 Hold SBP<100; Start 11/23/18 at 13:00 IV Flush (NS 10 ml) 10 ml PRN PRN IV IV PROTOCOL; Start 11/24/18 at 16:00 Miscellaneous Information 1 ea NOTE XX Last administered on 11/29/18at 12:55; Admin Dose 1 EA; Start 11/24/18 at 20:30 Glucose (Glutose) 15 gm Q15M PRN PO DECREASED GLUCOSE; Start 11/24/18 at 20:30 Glucose (Glutose) 22.5 gm Q15M PRN PO DECREASED GLUCOSE; Start 11/24/18 at 20:30 Dextrose (D50w Syringe) 25 ml Q15M PRN IV DECREASED GLUCOSE Last administered on 11/26/18at 01:40; Admin Dose 25 ML; Start 11/24/18 at 20:30 Dextrose (D50w Syringe) 50 ml Q15M PRN IV DECREASED GLUCOSE Last administered on 11/29/18at 06:01; Admin Dose 50 ML; Start 11/24/18 at 20:30 Glucagon (Glucagen) 1 mg Q15M PRN IM DECREASED GLUCOSE; Start 11/24/18 at 20:30 Glucose (Glutose) 15 gm Q15M PRN BUCCAL DECREASED GLUCOSE; Start 11/24/18 at 20:30 Insulin Aspart (Novolog Insulin Pen) NOVOLOG *MILD* ALGORITHM WITH MEALS BEDTIME SC Last administered on 12/07/18 12:10; Admin Dose 3 UNIT; Start 11/28/18 at 11:30 Metoprolol Tartrate (Lopressor) 50 mg BID PO Last administered on 12/07/18 08:28; Admin Dose 50 MG; Start 11/28/18 at 21:00 Furosemide (Lasix) 40 mg BID DIURETICS IV Last administered on 12/07/18 06:57; Admin Dose 40 MG; Start 11/30/18 at 18:00 Metolazone (Zaroxolyn) 2.5 mg DAILY PO Last administered on 12/07/18 10:06; Admin Dose 2.5 MG; Start 12/07/18 at 09:00 Albuterol/ Ipratropium (Duoneb) 3 ml Q4H RESP THERAPY PRN HHN SHORTNESS OF BREATH; Start 12/07/18 at 10:00 Assessment/Plan Hospital Course (Demo Recall) MP: 1. Status post acute hypoxemic respiratory failure secondary to volume overload 2. Acute renal failure now hemodialysis dependent 3. History of pulmonary embolus on Eliquis 4. Congestive cardiac failure with aortic stenosis 5. Encephalopathy toxic metabolic now resolving RECS: 1. Continue hemodialysis per nephrology 2. Monitor H&H 3. Aspiration precautions 4. Wound care 5. PT evaluation SNF placement [facility] FRANKS [facility] Dec 07, 2018 13:50
--- NOTE | 2018-12-07 20:41 | CONS ---
Consultation Date/Type/Reason Admit Date/Time Nov 16, 2018 at 17:17 Initial Consult Date Requesting Provider: JABIER SEBASTIAN Date/Time of Note DATE: 12/07/18 TIME: 20:41 Exam/Review of Systems Exam Vitals Vital Signs Date Temp Pulse Resp B/P (MAP) Pulse Ox O2 O2 Flow FiO2 Time Delivery Rate 12/07/18 97.5 81 20 126/58 100 20:34 (80) 12/07/18 Nasal 3.0 15:48 Cannula 12/07/18 27 01:58 Intake and Output 12/06/18 12/06/18 12/07/18 1515:00 23:00 07:00 IntakeIntake Total 700 ml 1000 ml 1150 ml BalanceBalance 700 ml 1000 ml 1150 ml Results Result Diagram: 12/06/18 0513 12/06/18 0513 Results 24hrs Laboratory Tests Test 12/07/18 03:22 12/07/18 07:32 12/07/18 08:45 12/07/18 11:31 Bedside Glucose 211 176 239 H Lab Scanned BLOOD TRANSFUSIO Report N Test 12/07/18 17:28 12/07/18 20:38 Bedside Glucose 218 202 Medications Medication Current Medications IV Flush (NS 3 ml) 3 ml PER PROTOCOL IV ; Start 11/16/18 at 19:30 Ondansetron HCl (Zofran Inj) 4 mg Q6H PRN IV NAUSEA/VOMITING; Start 11/16/18 at 19:30 Acetaminophen (Tylenol Tab) 650 mg Q6H PRN PO .PAIN 1-3 OR TEMP; Start 11/16/18 at 19:30 Acetaminophen/ Hydrocodone Bitart ([place] (5/325)) 1 tab Q6H PRN PO .MOD PAIN 4- 6 Last administered on 12/07/18at 03:41; Admin Dose 1 TAB; Start 11/16/18 at 19:30 Docusate Sodium (Colace) 100 mg Q12H PRN PO .CONSTIPATION; Start 11/16/18 at 19:30 Zolpidem Tartrate (Ambien) 5 mg QHS PRN PO .INSOMNIA Last administered on 11/22/18at 23:20; Admin Dose 5 MG; Start 11/16/18 at 19:30 Clotrimazole (Lotrimin Cr) 1 applic BID TOP Last administered on 12/07/18 08:28; Admin Dose 1 APPLIC; Start 11/16/18 at 21:00 Fluticasone/ Vilanterol (Breo Ellipta 100-25 Mcg Inh) 1 inh DAILY INH Last administered on 12/07/18 08:27; Admin Dose 1 INH; Start 11/17/18 at 12:00 Metoprolol Tartrate (Lopressor) 5 mg Q4H PRN IV HR>110 Hold SBP<100; Start 11/23/18 at 13:00 IV Flush (NS 10 ml) 10 ml PRN PRN IV IV PROTOCOL; Start 11/24/18 at 16:00 Miscellaneous Information 1 ea NOTE XX Last administered on 11/29/18at 12:55; Admin Dose 1 EA; Start 11/24/18 at 20:30 Glucose (Glutose) 15 gm Q15M PRN PO DECREASED GLUCOSE; Start 11/24/18 at 20:30 Glucose (Glutose) 22.5 gm Q15M PRN PO DECREASED GLUCOSE; Start 11/24/18 at 20:30 Dextrose (D50w Syringe) 25 ml Q15M PRN IV DECREASED GLUCOSE Last administered on 11/26/18 01:40; Admin Dose 25 ML; Start 11/24/18 at 20:30 Dextrose (D50w Syringe) 50 ml Q15M PRN IV DECREASED GLUCOSE Last administered on 11/29/18 06:01; Admin Dose 50 ML; Start 11/24/18 at 20:30 Glucagon (Glucagen) 1 mg Q15M PRN IM DECREASED GLUCOSE; Start 11/24/18 at 20:30 Glucose (Glutose) 15 gm Q15M PRN BUCCAL DECREASED GLUCOSE; Start 11/24/18 at 20:30 Insulin Aspart (Novolog Insulin Pen) NOVOLOG *MILD* ALGORITHM WITH MEALS BEDTIME SC Last administered on 12/07/18 17:30; Admin Dose 2 UNIT; Start 11/28/18 at 11:30 Metoprolol Tartrate (Lopressor) 50 mg BID PO Last administered on 12/07/18 08:28; Admin Dose 50 MG; Start 11/28/18 at 21:00 Furosemide (Lasix) 40 mg BID DIURETICS IV Last administered on 12/07/18at 18:54; Admin Dose 40 MG; Start 11/30/18 at 18:00 Metolazone (Zaroxolyn) 2.5 mg DAILY PO Last administered on 12/07/18at 10:06; Admin Dose 2.5 MG; Start 12/07/18 at 09:00 Albuterol/ Ipratropium (Duoneb) 3 ml Q4H RESP THERAPY PRN HHN SHORTNESS OF BREATH; Start 12/07/18 at 10:00 MINI PAEZ Dec 07, 2018 20:41
[2018-12-08] MEDS: HYDROCODONE/APAP (5/325) TAB PO PRN (00:32)
[2018-12-08 02:52] VITALS: BP 119/56; PULSE 71; RESP 16
[2018-12-08] MEDS ORDERED: ALTEPLASE (CATHFLO) 2 MG INJ CATHETER PRN (05:30)
[2018-12-08] MEDS: FUROSEMIDE 40 MG INJ IV SCH ×2 (05:51→18:29)
[2018-12-08 08:00] VITALS: BP 123/54; PULSE 70; RESP 18
[2018-12-08] MEDS: METOLAZONE 2.5 MG TAB PO SCH (08:46)
[2018-12-08] MEDS: METOPROLOL 50 MG TAB PO SCH ×2 (08:47→20:52)
[2018-12-08] MEDS: CLOTRIMAZOLE 1% 30 GM CR TOP SCH ×2 (08:48→20:51)
[2018-12-08] MEDS: INSULIN ASPART [NOVOLOG] 3 ML PEN SC SCH ×4 (08:50→20:57)
--- NOTE | 2018-12-08 09:00 | PN ---
DATE: 12/08/2018 SUBJECTIVE: Patient was transferred from telemetry to med-surg. No acute events noted. OBJECTIVE: VITAL SIGNS: Blood pressure is 119/56, respirations 16, pulse 71, temperature 97.6. HEENT: Head is normocephalic. NECK: Supple. HEART: Regular rate. LUNGS: Show diminished breath sounds at the base. ABDOMEN: Soft, nontender to palpation. No rebound or guarding. EXTREMITIES: Negative for clubbing, cyanosis. Positive edema. DERMATOLOGIC: No rashes. MUSCULOSKELETAL: No joint effusion. NEUROLOGIC: No change in exam. MEDICATIONS: Reviewed. LABORATORY DATA: Shows sodium 142, potassium 4.0 BUN 77, creatinine 1.98. Hemoglobin 7.5, hematocri t 25.1. ASSESSMENT AND PLAN: 1. Nonoliguric acute kidney injury on top of chronic kidney disease with previous baseline creatinin e of 1.5 mg/dL. Etiology of BRIE is secondary to hemodynamics, acute tubular necrosis. The patient w as initiated on hemodialysis. However, dialysis has been held for over 7 days. The patient's renal function has been stable, slowly improving. At this point, will discontinue Noel catheter. We wi ll continue to monitor renal panel. Continue diuretic therapy. 2. Acute congestive heart failure exacerbation. Continue current diuretic regimen and monitor renal panel and electrolytes closely. 3. Anemia. Monitor hemoglobin and hematocrit levels. 4. Mineral bone disorder. Monitor calcium and phosphorus levels. 5. Acute respiratory failure secondary to congestive heart failure, reactive airway disease. The pa tient is clinically improving. Continue diuretic therapy, supplemental oxygen and nebulizers. 6. Atrial fibrillation. Continue medical management. 7. Diabetes. Continue current insulin regimen. 8. Acute encephalopathy, etiology toxic metabolic. 9. Aortic stenosis. Dictated By: JOCELINE MCCALLUM DO NR/NTS Conf#: [id number] DID#: [id number] CC: JABIER SEBASTIAN MD; HARIS GREEN MD;*End*
[2018-12-08] MEDS: FLUTICASONE/VILANTEROL 100-25 INH SCH (10:04)
--- NOTE | 2018-12-08 10:50 | CONS ---
Consult Date/Type/Reason Admit Date/Time Nov 16, 2018 at 17:17 Initial Consult Date Type of Consultation: Pulm Requesting Provider: JABIER SEBASTIAN Date/Time of Note DATE: 12/08/18 TIME: 10:49 Subjective NO acute events - pt comfortable - no CP - more alert today ROS: No fever, no chills, no nausea, no vomiting, no diarrhea/constipation No recent weight changes No chest pain, no PND, no orthopnea + SOB, + chronic pain No dizziness, blurred vision No thirst, no heat or cold intolerance Objective Vitals Vital Signs Date Temp Pulse Resp B/P (MAP) Pulse Ox O2 O2 Flow FiO2 Time Delivery Rate 12/08/18 98.6 70 18 123/54 96 08:00 (77) 12/08/18 3.0 05:40 12/07/18 Nasal 20:00 Cannula 12/07/18 27 01:58 Exam General: WN/WD/NAD, AOx 2-3 HEENT: Unicetric/atraumatic/EOMI (follows commands) NECK: JVD elevated, no thyromegaly Lymph: no lymphadenopathy HEART: regular with no S3, II/ systolic murmur at apex, PMI L , 2/6 m at base LUNGS: Coarse sounds ABD: soft, NT, ND, +BS : Intact Neuro: non focal SKIN: chronic changes EXT: + edema + wounds Results/Medications Result Diagram: 12/08/18 0711 12/08/18 0456 Results 24 hrs Laboratory Tests Test 12/07/18 11:31 12/07/18 17:28 12/07/18 20:38 12/08/18 02:02 Bedside Glucose 239 H 218 202 189 Test 12/08/18 04:56 12/08/18 07:11 12/08/18 08:19 White Blood Count 5.1 # Red Blood Count 2.53 L Hemoglobin 6.1 *L 7.5 #L Hematocrit 20.0 L 25.1 #L Mean Corpuscular 79.1 L Volume Mean Corpuscular 24.1 L Hemoglobin Mean Corpuscular 30.5 L Hemoglobin Concent Red Cell 20.7 H Distribution Width Platelet Count 122 #L Mean Platelet Volume 12.2 H Immature 0.800 H Granulocytes % Neutrophils % 70.1 Lymphocytes % 17.1 Monocytes % 9.8 Eosinophils % 2.0 Basophils % 0.2 Nucleated Red Blood 0.0 Cells % Immature 0.040 H Granulocytes # Neutrophils # 3.6 Lymphocytes # 0.9 Monocytes # 0.5 Eosinophils # 0.1 Basophils # 0.0 Nucleated Red Blood 0.0 Cells # Sodium Level 142 Potassium Level 4.0 Chloride Level 97 Carbon Dioxide Level 35 H Anion Gap 10 Blood Urea Nitrogen 77 H Creatinine 1.98 H Est Glomerular Filtrat Rate mL/min Glucose Level 176 Calcium Level 8.7 Phosphorus Level 3.0 Magnesium Level 1.7 Bedside Glucose 199 Home Meds Active Scripts Furosemide* (Furosemide*) 40 Mg Tablet, 40 MG PO DAILY, #30 TAB Prov:DAVID RAUSCH NP 08/09/18 Clotrimazole* (Lotrimin*) 1%-30 Gm Cream..g., 1 APPLIC TOP BID, #1 TUB Please apply to the right lower extremity wound twice daily. Prov:DAVID RAUSCH NP 08/09/18 Insulin Glargine,Hum.rec.anlog (Basaglar Kwikpen U-100) 100 Unit/1 Ml Insuln.pen, 5 UNIT SC DAILY for 30 Days, #1 EA Prov:RAMIRO MORRIS MD 04/05/18 Linagliptin (TRADJENTA) 5 Mg Tablet, 5 MG PO DAILY for 30 Days, #30 TAB Prov:RAMIRO MORRIS MD 04/05/18 Insulin Aspart* (Novolog Insulin Pen*) 100 Unit/Ml Soln, 10 UNIT SC WITH LUNCH for 30 Days, #1 EA Prov:RAMIRO MORRIS MD 04/05/18 Insulin Aspart* (Novolog Insulin Pen*) 100 Unit/Ml Soln, 10 UNIT SC WITH DINNER for 30 Days, #1 EA Prov:RAMIRO MORRIS MD 04/05/18 Insulin Aspart* (Novolog Insulin Pen*) 100 Unit/Ml Soln, 6 UNIT SC WITH BREAKFAST for 30 Days, #1 EA Prov:RAMIRO MORRIS MD 04/05/18 Fluticasone-Vilanterol (Breo Ellipta Inhaler) 100-25 Mcg/Actuation Aer.pow.ba, 1 INH INH DAILY for 30 Days, #1 EA Prov:RAMIRO MORRIS MD 04/05/18 Aspirin (Aspirin) 81 Mg Chew, 81 MG PO DAILY for 30 Days, #30 TAB Prov:RAMIRO MORRIS MD 04/05/18 Metoprolol Tartrate* (Lopressor*) 25 Mg Tab, 75 MG PO BID for 30 Days, #60 TAB Prov:RAMIRO MORRIS MD 04/05/18 Hydralazine Hcl* (Apresoline*) 50 Mg Tab, 50 MG PO Q8 for 30 Days, #90 TAB Prov:RAMIRO MORRIS MD 04/05/18 Diltiazem Hcl* (Cardizem CD*) 120 Mg Cap.sr.24h, 120 MG PO BID for 30 Days, #60 TAB Prov:RAMIRO MORRIS MD 04/05/18 Apixaban* (Eliquis*) 5 Mg Tablet, 2.5 MG PO BID for 30 Days, #60 TAB Prov:RAMIRO MORRIS MD 04/05/18 Tiotropium [place]* (Spiriva*) 18 Mcg Cap.w.dev, 1 INH INH DAILY for 30 Days, #30 CAP Prov:RAMIRO MORRIS MD 04/05/18 Psyllium Husk (Metamucil) 0.52 Gm Capsule, 0.52 GM PO DAILY for 30 Days, #30 CAP Prov:RAMIRO MORRIS MD 04/19/17 Digoxin* (Digitek*) 0.125 Mg Tab, 0.125 MG PO DAILY@13, #30 3 Refills Prov:DALLAS PICKETT 03/22/15 Reported Medications Albuterol Sulfate* (Proair HFA*) 8.5 Gm Hfa.aer.ad, 2 PUFF INH Q6H PRN for WHEEZING AND SOB, INH 03/16/15 Omeprazole* (Omeprazole*) 20 Mg Capsule.dr, 20 MG PO DAILY, CAP 03/16/15 Medications Current Medications IV Flush (NS 3 ml) 3 ml PER PROTOCOL IV ; Start 11/16/18 at 19:30 Ondansetron HCl (Zofran Inj) 4 mg Q6H PRN IV NAUSEA/VOMITING; Start 11/16/18 at 19:30 Acetaminophen (Tylenol Tab) 650 mg Q6H PRN PO .PAIN 1-3 OR TEMP; Start 11/16/18 at 19:30 Acetaminophen/ Hydrocodone Bitart ([place] (5/325)) 1 tab Q6H PRN PO .MOD PAIN 4- 6 Last administered on 12/08/18 00:32; Admin Dose 1 TAB; Start 11/16/18 at 19:30 Docusate Sodium (Colace) 100 mg Q12H PRN PO .CONSTIPATION; Start 11/16/18 at 19:30 Zolpidem Tartrate (Ambien) 5 mg QHS PRN PO .INSOMNIA Last administered on 11/22/18 23:20; Admin Dose 5 MG; Start 11/16/18 at 19:30 Clotrimazole (Lotrimin Cr) 1 applic BID TOP Last administered on 12/08/18 08:48; Admin Dose 1 APPLIC; Start 11/16/18 at 21:00 Fluticasone/ Vilanterol (Breo Ellipta 100-25 Mcg Inh) 1 inh DAILY INH Last administered on 12/08/18 10:04; Admin Dose 1 INH; Start 11/17/18 at 12:00 Metoprolol Tartrate (Lopressor) 5 mg Q4H PRN IV HR>110 Hold SBP<100; Start 11/23/18 at 13:00 IV Flush (NS 10 ml) 10 ml PRN PRN IV IV PROTOCOL; Start 11/24/18 at 16:00 Miscellaneous Information 1 ea NOTE XX Last administered on 11/29/18at 12:55; Admin Dose 1 EA; Start 11/24/18 at 20:30 Glucose (Glutose) 15 gm Q15M PRN PO DECREASED GLUCOSE; Start 11/24/18 at 20:30 Glucose (Glutose) 22.5 gm Q15M PRN PO DECREASED GLUCOSE; Start 11/24/18 at 20:30 Dextrose (D50w Syringe) 25 ml Q15M PRN IV DECREASED GLUCOSE Last administered on 11/26/18at 01:40; Admin Dose 25 ML; Start 11/24/18 at 20:30 Dextrose (D50w Syringe) 50 ml Q15M PRN IV DECREASED GLUCOSE Last administered on 11/29/18at 06:01; Admin Dose 50 ML; Start 11/24/18 at 20:30 Glucagon (Glucagen) 1 mg Q15M PRN IM DECREASED GLUCOSE; Start 11/24/18 at 20:30 Glucose (Glutose) 15 gm Q15M PRN BUCCAL DECREASED GLUCOSE; Start 11/24/18 at 20:30 Insulin Aspart (Novolog Insulin Pen) NOVOLOG *MILD* ALGORITHM WITH MEALS BEDTIME SC Last administered on 12/08/18at 08:50; Admin Dose 2 UNIT; Start 11/28/18 at 11:30 Metoprolol Tartrate (Lopressor) 50 mg BID PO Last administered on 12/08/18at 08:47; Admin Dose 50 MG; Start 11/28/18 at 21:00 Furosemide (Lasix) 40 mg BID DIURETICS IV Last administered on 12/08/18at 05:51; Admin Dose 40 MG; Start 11/30/18 at 18:00 Metolazone (Zaroxolyn) 2.5 mg DAILY PO Last administered on 12/08/18at 08:46; Admin Dose 2.5 MG; Start 12/07/18 at 09:00 Albuterol/ Ipratropium (Duoneb) 3 ml Q4H RESP THERAPY PRN HHN SHORTNESS OF BREATH; Start 12/07/18 at 10:00 Alteplase, Recombinant (Cathflo (Activase)) 6 mg MAY REPEAT X1 PRN CATHETER IF CATHETER REMAINS OCCULUDED Last administered on 12/08/18at 06:01; Admin Dose 6 MG; Start 12/08/18 at 05:30 Assessment/Plan Hospital Course (Demo Recall) 1.AF with mild RVR-rate controlled on current dose of BB - rate controlled now - stable now. 2.Renal failure - intermittent HD - lasix per renal team - will monitor 3.Hyperkalemia - now treated 4.Bradycardia - will monitor now. NO plan for pacer nw. 5.CHF-diastolic acute on chronic EF 50% by echo this admit - in CHF now - con;t to remove fluid as tolerated. 6.HTN 7.-mod to severe by echo 08/09 - no intervention planned. 8. Anemia - H/H low - s/p blood tx - up to 7.3 today JUAN KEY MD Dec 08, 2018 10:50
--- NOTE | 2018-12-08 10:58 | CONS ---
Assessment/Plan Assessment/Plan Assessment/Plan (Daily) Assessment recommendations; 1. Patient now complaining of increasing shortness of breath likely with acute bronchitis and COPD exacerbation, difficult to rule out worsening pulmonary edema. 2. Acute renal failure now off hemodialysis. Maintained on diuretic regimen. With adequate urine output. 3. Chronic atrial fibrillation. 4. History of hypertension. 5. Underlying COPD. 6. Marked improvement in generalized anasarca. Obtain chest x-ray. Start Solu-Medrol 40 mg every 8 hours, DuoNeb every 6 hours. Further recommendations once chest x-ray is obtained. Continue other supportive measures. Consultation Date/Type/Reason Admit Date/Time Nov 16, 2018 at 17:17 Initial Consult Date Type of Consult Pulmonary/critical care Patient's condition has taken a turn for the worse with altered mental status. Patient now has been transferred to ICU. Hemodialysis will be started shortly. Patient appears confused. But is hemodynamically stable. General exam; elderly woman, awake, agitated off and on. Requesting Provider: JABIER SEBASTIAN Date/Time of Note DATE: 12/08/18 TIME: 10:56 24 HR Interval Summary Free Text/Dictation Patient is complaining of shortness of breath with coughing wheezing and sputum production which is clear. Denies any chest pain, fever. General exam; elderly female awake and alert. Having coughing episodes. Exam/Review of Systems Exam Vitals Vital Signs Date Temp Pulse Resp B/P (MAP) Pulse Ox O2 O2 Flow FiO2 Time Delivery Rate 12/08/18 98.6 70 18 123/54 96 08:00 (77) 12/08/18 3.0 05:40 12/07/18 Nasal 20:00 Cannula 12/07/18 27 01:58 Exam H EENT exam; supple neck, positive JVD. No lymphadenopathy. Midline trachea. No thyromegaly. Patient is edentulous. Chest exam; diminished breath sounds bilaterally. S1-S2 audible, no murmurs. Irregular rhythm. Abdomen exam; soft, nontender. No organomegaly. Bowel sounds audible. Extremity exam; trace edema. [employer] PRODUCTION ASSOCIATE exam; no focal deficit. Results Result Diagram: 12/08/18 0711 12/08/18 0456 Results 24hrs Laboratory Tests Test 12/07/18 11:31 12/07/18 17:28 12/07/18 20:38 12/08/18 02:02 Bedside Glucose 239 H 218 202 189 Test 12/08/18 04:56 12/08/18 07:11 12/08/18 08:19 White Blood Count 5.1 # Red Blood Count 2.53 L Hemoglobin 6.1 *L 7.5 #L Hematocrit 20.0 L 25.1 #L Mean Corpuscular 79.1 L Volume Mean Corpuscular 24.1 L Hemoglobin Mean Corpuscular 30.5 L Hemoglobin Concent Red Cell 20.7 H Distribution Width Platelet Count 122 #L Mean Platelet Volume 12.2 H Immature 0.800 H Granulocytes % Neutrophils % 70.1 Lymphocytes % 17.1 Monocytes % 9.8 Eosinophils % 2.0 Basophils % 0.2 Nucleated Red Blood 0.0 Cells % Immature 0.040 H Granulocytes # Neutrophils # 3.6 Lymphocytes # 0.9 Monocytes # 0.5 Eosinophils # 0.1 Basophils # 0.0 Nucleated Red Blood 0.0 Cells # Sodium Level 142 Potassium Level 4.0 Chloride Level 97 Carbon Dioxide Level 35 H Anion Gap 10 Blood Urea Nitrogen 77 H Creatinine 1.98 H Est Glomerular Filtrat Rate mL/min Glucose Level 176 Calcium Level 8.7 Phosphorus Level 3.0 Magnesium Level 1.7 Bedside Glucose 199 Medications Medication Current Medications IV Flush (NS 3 ml) 3 ml PER PROTOCOL IV ; Start 11/16/18 at 19:30 Ondansetron HCl (Zofran Inj) 4 mg Q6H PRN IV NAUSEA/VOMITING; Start 11/16/18 at 19:30 Acetaminophen (Tylenol Tab) 650 mg Q6H PRN PO .PAIN 1-3 OR TEMP; Start 11/16/18 at 19:30 Acetaminophen/ Hydrocodone Bitart ([place] (5/325)) 1 tab Q6H PRN PO .MOD PAIN 4- 6 Last administered on 12/08/18at 00:32; Admin Dose 1 TAB; Start 11/16/18 at 19:30 Docusate Sodium (Colace) 100 mg Q12H PRN PO .CONSTIPATION; Start 11/16/18 at 1 9:30 Zolpidem Tartrate (Ambien) 5 mg QHS PRN PO .INSOMNIA Last administered on 11/22/18at 23:20; Admin Dose 5 MG; Start 11/16/18 at 19:30 Clotrimazole (Lotrimin Cr) 1 applic BID TOP Last administered on 12/08/18 08:48; Admin Dose 1 APPLIC; Start 11/16/18 at 21:00 Fluticasone/ Vilanterol (Breo Ellipta 100-25 Mcg Inh) 1 inh DAILY INH Last administered on 12/08/18 10:04; Admin Dose 1 INH; Start 11/17/18 at 12:00 Metoprolol Tartrate (Lopressor) 5 mg Q4H PRN IV HR>110 Hold SBP<100; Start 11/23/18 at 13:00 IV Flush (NS 10 ml) 10 ml PRN PRN IV IV PROTOCOL; Start 11/24/18 at 16:00 Miscellaneous Information 1 ea NOTE XX Last administered on 11/29/18at 12:55; Admin Dose 1 EA; Start 11/24/18 at 20:30 Glucose (Glutose) 15 gm Q15M PRN PO DECREASED GLUCOSE; Start 11/24/18 at 20:30 Glucose (Glutose) 22.5 gm Q15M PRN PO DECREASED GLUCOSE; Start 11/24/18 at 20:30 Dextrose (D50w Syringe) 25 ml Q15M PRN IV DECREASED GLUCOSE Last administered on 11/26/18 01:40; Admin Dose 25 ML; Start 11/24/18 at 20:30 Dextrose (D50w Syringe) 50 ml Q15M PRN IV DECREASED GLUCOSE Last administered on 11/29/18 06:01; Admin Dose 50 ML; Start 11/24/18 at 20:30 Glucagon (Glucagen) 1 mg Q15M PRN IM DECREASED GLUCOSE; Start 11/24/18 at 20:30 Glucose (Glutose) 15 gm Q15M PRN BUCCAL DECREASED GLUCOSE; Start 11/24/18 at 20: 30 Insulin Aspart (Novolog Insulin Pen) NOVOLOG *MILD* ALGORITHM WITH MEALS BEDTIME SC Last administered on 12/08/18 08:50; Admin Dose 2 UNIT; Start 11/28/18 at 11:30 Metoprolol Tartrate (Lopressor) 50 mg BID PO Last administered on 12/08/18 08:47; Admin Dose 50 MG; Start 11/28/18 at 21:00 Furosemide (Lasix) 40 mg BID DIURETICS IV Last administered on 12/08/18 05:51; Admin Dose 40 MG; Start 11/30/18 at 18:00 Metolazone (Zaroxolyn) 2.5 mg DAILY PO Last administered on 12/08/18at 08:46; Admin Dose 2.5 MG; Start 12/07/18 at 09:00 Albuterol/ Ipratropium (Duoneb) 3 ml Q4H RESP THERAPY PRN HHN SHORTNESS OF BREATH; Start 12/07/18 at 10:00 Alteplase, Recombinant (Cathflo (Activase)) 6 mg MAY REPEAT X1 PRN CATHETER IF CATHETER REMAINS OCCULUDED Last administered on 12/08/18at 06:01; Admin Dose 6 MG; Start 12/08/18 at 05:30 ZACH HEALY 19, 2019 10:58
[2018-12-08] MEDS: ALBUTEROL/IPRATROPIUM (NEB) 3 ML AMP HHN SCH ×3 (11:00→20:07)
--- NOTE | 2018-12-08 13:50 | PN ---
Date/Time of Note Date/Time of Note DATE: 12/08/18 TIME: 13:49 Assessment/Plan VTE Prophylaxis Risk score (from Ns)>0 risk: 9 SCD applied (from Ns): Yes Pharmacological prophylaxis: heparin Lines/Catheters IV Catheter Type (from Nrs): PICC Line Central line still needed: Yes Urinary Cath still in place: No Assessment/Plan Hospital Course 83 yo female with , diastolic CHF with acute respiratory failure and volume overload from CHF and BRIE. She was transferred to ICU and was at risk for intubation. HD was intiated and patient has improved markedly. Respiratory status stable. Remains a bit hypervolemic. Holding HD now. Kidneys recovering. Now wtih thrombocytopenia concerning for HIT Thrombocytopenia: - Resolving nicely Acute respiratory failure 2/2 volume overload: - Recheck CXR today - patient's status has improved, now stable on NC - Continue O2 by NC BRIE: - Kidneys recovering with good urine output - diuretics per renal - Holding off on HD A Fib: - Hold heparin given hematuria and thrombocytopenia Cirrhosis Septic encephelopathy, improved Sepsis - resolved DNR Dischage plannign: Patient can be discharged when volume status is optimzied and platelet situation resolved. Likely will need subacute rehab. Result Diagram: 12/08/18 0711 12/08/18 0456 Results 24hrs Laboratory Tests Test 12/07/18 17:28 12/07/18 20:38 12/08/18 02:02 12/08/18 04:56 Bedside Glucose 218 202 189 White Blood Count 5.1 # Red Blood Count 2.53 L Hemoglobin 6.1 *L Hematocrit 20.0 L Mean Corpuscular 79.1 L Volume Mean Corpuscular 24.1 L Hemoglobin Mean Corpuscular 30.5 L Hemoglobin Concent Red Cell 20.7 H Distribution Width Platelet Count 122 #L Mean Platelet Volume 12.2 H Immature 0.800 H Granulocytes % Neutrophils % 70.1 Lymphocytes % 17.1 Monocytes % 9.8 Eosinophils % 2.0 Basophils % 0.2 Nucleated Red Blood 0.0 Cells % Immature 0.040 H Granulocytes # Neutrophils # 3.6 Lymphocytes # 0.9 Monocytes # 0.5 Eosinophils # 0.1 Basophils # 0.0 Nucleated Red Blood 0.0 Cells # Sodium Level 142 Potassium Level 4.0 Chloride Level 97 Carbon Dioxide Level 35 H Anion Gap 10 Blood Urea Nitrogen 77 H Creatinine 1.98 H Est Glomerular Filtrat Rate mL/min Glucose Level 176 Calcium Level 8.7 Phosphorus Level 3.0 Magnesium Level 1.7 Test 12/08/18 07:11 12/08/18 08:19 12/08/18 12:18 Hemoglobin 7.5 #L Hematocrit 25.1 #L Bedside Glucose 199 169 Subjective 24 Hr Interval Summary Free Text/Dictation Still SOB Says she doesn't want to go to a [place] health care facility Exam/Review of Systems Exam Vitals Vital Signs Date Temp Pulse Resp B/P (MAP) Pulse Ox O2 O2 Flow FiO2 Time Delivery Rate 12/08/18 3.0 11:01 12/08/18 54 18 92 Nasal 11:01 Cannula 12/08/18 98.6 123/54 08:00 (77) 12/07/18 27 01:58 Constitutional: alert, oriented, well developed Psych: no complaints, nl mood/affect Head: normocephalic, atraumatic Eyes: nl conjunctiva, EOMI, nl lids, nl sclera, PERRL ENMT: nl external ears & nose, nl lips & teeth, nl nasal mucosa & septum Neck: supple, non-tender Respiratory: clear to auscultation, normal air movement Cardiovascular: regular rate and rhythm, nl pulses Gastrointestinal: soft, nl liver, spleen, non-tender Musculoskeletal: nl extremities to inspection, nl gait and stance Extremities: normal pulses Neurological: INTERNET TECHNOLOGY MANAGER II-XII intact, nl mental status, nl speech, nl strength Skin: nl turgor; No rash or lesions Lymph: nl lymph nodes Results Results 24hrs Laboratory Tests Test 12/07/18 17:28 12/07/18 20:38 12/08/18 02:02 12/08/18 04:56 Bedside Glucose 218 202 189 White Blood Count 5.1 # Red Blood Count 2.53 L Hemoglobin 6.1 *L Hematocrit 20.0 L Mean Corpuscular 79.1 L Volume Mean Corpuscular 24.1 L Hemoglobin Mean Corpuscular 30.5 L Hemoglobin Concent Red Cell 20.7 H Distribution Width Platelet Count 122 #L Mean Platelet Volume 12.2 H Immature 0.800 H Granulocytes % Neutrophils % 70.1 Lymphocytes % 17.1 Monocytes % 9.8 Eosinophils % 2.0 Basophils % 0.2 Nucleated Red Blood 0.0 Cells % Immature 0.040 H Granulocytes # Neutrophils # 3.6 Lymphocytes # 0.9 Monocytes # 0.5 Eosinophils # 0.1 Basophils # 0.0 Nucleated Red Blood 0.0 Cells # Sodium Level 142 Potassium Level 4.0 Chloride Level 97 Carbon Dioxide Level 35 H Anion Gap 10 Blood Urea Nitrogen 77 H Creatinine 1.98 H Est Glomerular Filtrat Rate mL/min Glucose Level 176 Calcium Level 8.7 Phosphorus Level 3.0 Magnesium Level 1.7 Test 12/08/18 07:11 12/08/18 08:19 12/08/18 12:18 Hemoglobin 7.5 #L Hematocrit 25.1 #L Bedside Glucose 199 169 Medications Medication Current Medications IV Flush (NS 3 ml) 3 ml PER PROTOCOL IV ; Start 11/16/18 at 19:30 Ondansetron HCl (Zofran Inj) 4 mg Q6H PRN IV NAUSEA/VOMITING; Start 11/16/18 at 19:30 Acetaminophen (Tylenol Tab) 650 mg Q6H PRN PO .PAIN 1-3 OR TEMP; Start 11/16/18 at 19:30 Acetaminophen/ Hydrocodone Bitart ([place] (5/325)) 1 tab Q6H PRN PO .MOD PAIN 4- 6 Last administered on 12/08/18at 00:32; Admin Dose 1 TAB; Start 11/16/18 at 19:30 Docusate Sodium (Colace) 100 mg Q12H PRN PO .CONSTIPATION; Start 11/16/18 at 19:30 Zolpidem Tartrate (Ambien) 5 mg QHS PRN PO .INSOMNIA Last administered on 11/22/18at 23:20; Admin Dose 5 MG; Start 11/16/18 at 19:30 Clotrimazole (Lotrimin Cr) 1 applic BID TOP Last administered on 12/08/18at 08:48; Admin Dose 1 APPLIC; Start 11/16/18 at 21:00 Fluticasone/ Vilanterol (Breo Ellipta 100-25 Mcg Inh) 1 inh DAILY INH Last administered on 12/08/18at 10:04; Admin Dose 1 INH; Start 11/17/18 at 12:00 Metoprolol Tartrate (Lopressor) 5 mg Q4H PRN IV HR>110 Hold SBP<100; Start 11/23/18 at 13:00 IV Flush (NS 10 ml) 10 ml PRN PRN IV IV PROTOCOL; Start 11/24/18 at 16:00 Miscellaneous Information 1 ea NOTE XX Last administered on 11/29/18at 12:55; Admin Dose 1 EA; Start 11/24/18 at 20:30 Glucose (Glutose) 15 gm Q15M PRN PO DECREASED GLUCOSE; Start 11/24/18 at 20:30 Glucose (Glutose) 22.5 gm Q15M PRN PO DECREASED GLUCOSE; Start 11/24/18 at 20:30 Dextrose (D50w Syringe) 25 ml Q15M PRN IV DECREASED GLUCOSE Last administered on 11/26/18 01:40; Admin Dose 25 ML; Start 11/24/18 at 20:30 Dextrose (D50w Syringe) 50 ml Q15M PRN IV DECREASED GLUCOSE Last administered on 11/29/18 06:01; Admin Dose 50 ML; Start 11/24/18 at 20:30 Glucagon (Glucagen) 1 mg Q15M PRN IM DECREASED GLUCOSE; Start 11/24/18 at 20:30 Glucose (Glutose) 15 gm Q15M PRN BUCCAL DECREASED GLUCOSE; Start 11/24/18 at 20:30 Insulin Aspart (Novolog Insulin Pen) NOVOLOG *MILD* ALGORITHM WITH MEALS BEDTIME SC Last administered on 12/08/18 12:43; Admin Dose 1 UNIT; Start 11/28/18 at 11:30 Metoprolol Tartrate (Lopressor) 50 mg BID PO Last administered on 12/08/18 08:47; Admin Dose 50 MG; Start 11/28/18 at 21:00 Furosemide (Lasix) 40 mg BID DIURETICS IV Last administered on 12/08/18 05:51; Admin Dose 40 MG; Start 11/30/18 at 18:00 Metolazone (Zaroxolyn) 2.5 mg DAILY PO Last administered on 12/08/18 08:46; Admin Dose 2.5 MG; Start 12/07/18 at 09:00 Albuterol/ Ipratropium (Duoneb) 3 ml Q4H RESP THERAPY PRN HHN SHORTNESS OF BREATH Last administered on 12/08/18 11:00; Admin Dose 3 ML; Start 12/07/18 at 10:00 Alteplase, Recombinant (Cathflo (Activase)) 6 mg MAY REPEAT X1 PRN CATHETER IF CATHETER REMAINS OCCULUDED Last administered on 12/08/18at 06:01; Admin Dose 6 MG; Start 12/08/18 at 05:30 Albuterol/ Ipratropium (Duoneb) 3 ml Q6H RESP THERAPY HHN ; Start 12/08/18 at 11:00 Methylprednisolone Sodium Succinate (Solu-Medrol) 40 mg Q8 IV ; Start 12/08/18 at 14:00 HARIS GREEN MD Dec 08, 2018 13:50
[2018-12-08 14:00] VITALS: BP 124/54; PULSE 64; RESP 18
[2018-12-08] MEDS: METHYLPREDNISOLONE 40 MG INJ IV SCH ×2 (14:41→21:00)
--- NOTE | 2018-12-08 16:59 | CONS ---
Assessment/Plan Assessment/Plan Assessment/Plan (Daily) Congestive heart failure Resolved Fluid overload Resolved End-stage renal disease on hemodialysis Sepsis syndrome resolved patient hemodynamically stable DNR status Atrial fibrillation She is done extremely well cognitively intact and very pleasant . Consultation Date/Type/Reason Admit Date/Time Nov 16, 2018 at 17:17 Initial Consult Date Requesting Provider: JABIER SEBASTIAN Date/Time of Note DATE: 12/08/18 TIME: 16:57 Exam/Review of Systems Exam Vitals Vital Signs Date Temp Pulse Resp B/P (MAP) Pulse Ox O2 O2 Flow FiO2 Time Delivery Rate 12/08/18 67 18 98 Nasal 3.0 14:15 Cannula 12/08/18 98.8 124/54 14:00 (77) 12/07/18 27 01:58 Constitutional: alert, oriented, well developed Respiratory: No clear to auscultation, No normal air movement, No congested co ugh, No crackles/rales, No diminished breath sounds, No intercostal retraction, No labored breathing, No respirations, No tactile fremitus, No wheezing, No other Cardiovascular: No regular rate and rhythm, No nl pulses, No bruits, No diastolic murmur, No edema, No gallop, No irregular rhythm, No jugular venous distention (JVD), No murmurs/extra sounds, No rub, No systolic murmur, No S3, No S4, No other Neurological: ART FRAMING MANAGER II-XII intact, nl speech, other (Pleasantly confused) Results Result Diagram: 12/08/18 0711 12/08/18 0456 Results 24hrs Laboratory Tests Test 12/07/18 17:28 12/07/18 20:38 12/08/18 02:02 12/08/18 04:56 Bedside Glucose 218 202 189 White Blood Count 5.1 # Red Blood Count 2.53 L Hemoglobin 6.1 *L Hematocrit 20.0 L Mean Corpuscular 79.1 L Volume Mean Corpuscular 24.1 L Hemoglobin Mean Corpuscular 30.5 L Hemoglobin Concent Red Cell 20.7 H Distribution Width Platelet Count 122 #L Mean Platelet Volume 12.2 H Immature 0.800 H Granulocytes % Neutrophils % 70.1 Lymphocytes % 17.1 Monocytes % 9.8 Eosinophils % 2.0 Basophils % 0.2 Nucleated Red Blood 0.0 Cells % Immature 0.040 H Granulocytes # Neutrophils # 3.6 Lymphocytes # 0.9 Monocytes # 0.5 Eosinophils # 0.1 Basophils # 0.0 Nucleated Red Blood 0.0 Cells # Sodium Level 142 Potassium Level 4.0 Chloride Level 97 Carbon Dioxide Level 35 H Anion Gap 10 Blood Urea Nitrogen 77 H Creatinine 1.98 H Est Glomerular Filtrat Rate mL/min Glucose Level 176 Calcium Level 8.7 Phosphorus Level 3.0 Magnesium Level 1.7 Test 12/08/18 07:11 12/08/18 08:19 12/08/18 12:18 Hemoglobin 7.5 #L Hematocrit 25.1 #L Bedside Glucose 199 169 Medications Medication Current Medications IV Flush (NS 3 ml) 3 ml PER PROTOCOL IV ; Start 11/16/18 at 19:30 Ondansetron HCl (Zofran Inj) 4 mg Q6H PRN IV NAUSEA/VOMITING; Start 11/16/18 at 19:30 Acetaminophen (Tylenol Tab) 650 mg Q6H PRN PO .PAIN 1-3 OR TEMP; Start 11/16/18 at 19:30 Acetaminophen/ Hydrocodone Bitart ([place] (5/325)) 1 tab Q6H PRN PO .MOD PAIN 4- 6 Last administered on 12/08/18at 00:32; Admin Dose 1 TAB; Start 11/16/18 at 19:30 Docusate Sodium (Colace) 100 mg Q12H PRN PO .CONSTIPATION; Start 11/16/18 at 19:30 Zolpidem Tartrate (Ambien) 5 mg QHS PRN PO .INSOMNIA Last administered on 11/22/18at 23:20; Admin Dose 5 MG; Start 11/16/18 at 19:30 Clotrimazole (Lotrimin Cr) 1 applic BID TOP Last administered on 12/08/18at 08:48; Admin Dose 1 APPLIC; Start 11/16/18 at 21:00 Fluticasone/ Vilanterol (Breo Ellipta 100-25 Mcg Inh) 1 inh DAILY INH Last administered on 12/08/18at 10:04; Admin Dose 1 INH; Start 11/17/18 at 12:00 Metoprolol Tartrate (Lopressor) 5 mg Q4H PRN IV HR>110 Hold SBP<100; Start 11/23/18 at 13:00 IV Flush (NS 10 ml) 10 ml PRN PRN IV IV PROTOCOL; Start 11/24/18 at 16:00 Miscellaneous Information 1 ea NOTE XX Last administered on 11/29/18at 12:55; Admin Dose 1 EA; Start 11/24/18 at 20:30 Glucose (Glutose) 15 gm Q15M PRN PO DECREASED GLUCOSE; Start 11/24/18 at 20:30 Glucose (Glutose) 22.5 gm Q15M PRN PO DECREASED GLUCOSE; Start 11/24/18 at 20:30 Dextrose (D50w Syringe) 25 ml Q15M PRN IV DECREASED GLUCOSE Last administered on 11/26/18at 01:40; Admin Dose 25 ML; Start 11/24/18 at 20:30 Dextrose (D50w Syringe) 50 ml Q15M PRN IV DECREASED GLUCOSE Last administered on 11/29/18at 06:01; Admin Dose 50 ML; Start 11/24/18 at 20:30 Glucagon (Glucagen) 1 mg Q15M PRN IM DECREASED GLUCOSE; Start 11/24/18 at 20:30 Glucose (Glutose) 15 gm Q15M PRN BUCCAL DECREASED GLUCOSE; Start 11/24/18 at 20:30 Insulin Aspart (Novolog Insulin Pen) NOVOLOG *MILD* ALGORITHM WITH MEALS BEDTIME SC Last administered on 12/08/18at 12:43; Admin Dose 1 UNIT; Start 11/28/18 at 11:30 Metoprolol Tartrate (Lopressor) 50 mg BID PO Last administered on 12/08/18at 0 8:47; Admin Dose 50 MG; Start 11/28/18 at 21:00 Furosemide (Lasix) 40 mg BID DIURETICS IV Last administered on 12/08/18at 05:51; Admin Dose 40 MG; Start 11/30/18 at 18:00 Metolazone (Zaroxolyn) 2.5 mg DAILY PO Last administered on 12/08/18at 08:46; Admin Dose 2.5 MG; Start 12/07/18 at 09:00 Albuterol/ Ipratropium (Duoneb) 3 ml Q4H RESP THERAPY PRN HHN SHORTNESS OF BREATH Last administered on 12/08/18at 11:00; Admin Dose 3 ML; Start 12/07/18 at 10:00 Alteplase, Recombinant (Cathflo (Activase)) 6 mg MAY REPEAT X1 PRN CATHETER IF CATHETER REMAINS OCCULUDED Last administered on 12/08/18 06:01; Admin Dose 6 MG; Start 12/08/18 at 05:30 Albuterol/ Ipratropium (Duoneb) 3 ml Q6H RESP THERAPY HHN Last administered on 12/08/18 14:15; Admin Dose 3 ML; Start 12/08/18 at 11:00 Methylprednisolone Sodium Succinate (Solu-Medrol) 40 mg Q8 IV Last administered on 12/08/18at 14:41; Admin Dose 40 MG; Start 12/08/18 at 14:00 MINI PAEZ Dec 08, 2018 16:59
[2018-12-08 20:00] VITALS: BP 130/61; PULSE 78; RESP 18
[2018-12-08] MEDS: BALSAM PERU/CASTOR OIL 60 GM TUBE TOP SCH (20:51)
[2018-12-09 02:22] VITALS: BP 151/72; PULSE 90; RESP 18
[2018-12-09] MEDS: ALBUTEROL/IPRATROPIUM (NEB) 3 ML AMP HHN SCH ×4 (02:23→19:57)
[2018-12-09] MEDS: FUROSEMIDE 40 MG INJ IV SCH ×2 (05:38→18:14)
[2018-12-09] MEDS: METHYLPREDNISOLONE 40 MG INJ IV SCH ×3 (05:38→21:16)
[2018-12-09] MEDS: INSULIN ASPART [NOVOLOG] 3 ML PEN SC SCH ×4 (08:29→20:42)
[2018-12-09 08:51] VITALS: BP 145/85; PULSE 72; RESP 18
--- NOTE | 2018-12-09 09:39 | PN ---
DATE: 12/09/2018 SUBJECTIVE: The patient is stable. No events overnight. OBJECTIVE: VITAL SIGNS: Blood pressure is 145/85, respiration 18, pulse 72, temperature 97.8. HEENT: Head is normocephalic. NECK: Supple. HEART: Regular rate. LUNGS: Show diminished breath sounds at the base. ABDOMEN: Soft, nontender to palpation without rebound or guarding. EXTREMITIES: Negative for clubbing, cyanosis. Positive edema. DERMATOLOGIC: No rashes. MUSCULOSKELETAL: No joint effusion. NEUROLOGIC: No change in exam. MEDICATIONS: Have been reviewed. LABORATORY DATA: Has been reviewed. ASSESSMENT AND PLAN: 1. Nonoliguric acute kidney injury on top of chronic kidney disease with previous baseline creatinin e of 1.5 mg/dL. Etiology of BRIE is secondary to hemodynamics, acute tubular necrosis. The patient i s status post hemodialysis. We will continue current treatment plan, supportive care, renally dose a ll meds Continue diuretic therapy. 2. Acute congestive heart failure exacerbation. Continue current diuretic regimen, monitor renal fu nction and electrolytes. 3. Anemia. Monitor hemoglobin and hematocrit levels. 4. Mineral bone disorder, monitor calcium and phosphorus levels. 5. Acute respiratory failure secondary to congestive heart failure, reactive airway disease. The pa tient is clinically improving. Continue current diuretic regimen. Continue supplemental oxygen and nebulizers. 6. Atrial fibrillation. Continue medical management. 7. Diabetes. Continue current insulin regimen. 8. Acute encephalopathy, etiology is toxic metabolic. 9. Aortic stenosis. 10. Alkalosis. Etiology may be compensatory versus diuretic therapy. Continue to monitor. Dictated By: JOCELINE MCCALLUM DO NR/NTS Conf#: [id number] DID#: [id number] CC: JABIER SEBASTIAN MD; HARIS GREEN MD;*EndCC*
[2018-12-09] MEDS: FLUTICASONE/VILANTEROL 100-25 INH SCH (10:27)
[2018-12-09] MEDS: METOPROLOL 50 MG TAB PO SCH ×3 (10:28→21:00)
[2018-12-09] MEDS: METOLAZONE 2.5 MG TAB PO SCH (10:29)
[2018-12-09] MEDS: CLOTRIMAZOLE 1% 30 GM CR TOP SCH ×2 (10:31→20:44)
[2018-12-09] MEDS: BALSAM PERU/CASTOR OIL 60 GM TUBE TOP SCH ×2 (10:31→20:44)
--- NOTE | 2018-12-09 11:11 | CONS ---
Assessment/Plan Assessment/Plan Assessment/Plan (Daily) Assessment and recommendations; 1. Patient admitted with CHF exacerbation as well as acute renal failure now off hemodialysis. Chest x-ray however showing persistent pulmonary edema. 2. Severe COPD exacerbation yesterday with significant interval improvement on current treatment regimen. 3. Chronic atrial fibrillation. 4. Patient has a history of multiple admissions to the hospital for various reasons. Continue current supportive care. Consultation Date/Type/Reason Admit Date/Time Nov 16, 2018 at 17:17 Initial Consult Date Type of Consult Pulmonary/critical care Patient's condition has taken a turn for the worse with altered mental status. Patient now has been transferred to ICU. Hemodialysis will be started shortly. Patient appears confused. But is hemodynamically stable. General exam; elderly woman, awake, agitated off and on. Requesting Provider: JABIER SEBASTIAN Date/Time of Note DATE: 12/09/18 TIME: 11:09 24 HR Interval Summary Free Text/Dictation Patient's condition is significantly improved over the last 24 hours. With marked reduction in wheezing, chest congestion and shortness of breath. General exam; elderly female, awake and alert. Currently no distress. Exam/Review of Systems Exam Vitals Vital Signs Date Temp Pulse Resp B/P (MAP) Pulse Ox O2 O2 Flow FiO2 Time Delivery Rate 12/09/18 76 18 94 21 08:52 12/09/18 97.8 145/85 Room Air 08:51 (105) 12/09/18 2.0 02:23 Intake and Output 12/08/18 12/08/18 12/09/18 1515:00 23:00 07:00 IntakeIntake Total 590 ml 410 ml BalanceBalance 590 ml 410 ml Exam HEENT exam; supple neck, positive JVD. No lymphadenopathy. Midline trachea. No thyromegaly. Patient is edentulous and has dentures. Chest exam; diminished but clear breath sounds. S1-S2 audible, no murmurs. Irregular rhythm. Abdomen exam; soft, nontender. No organomegaly. Bowel sounds audible. Extremity exam; no peripheral edema. DRIVER'S EDUCATION INSTRUCTOR exam; no focal deficit. Results Result Diagram: 12/09/18 0600 12/09/18 0600 Results 24hrs Laboratory Tests Test 12/08/18 12:18 12/08/18 17:22 12/08/18 20:50 12/09/18 01:14 Bedside Glucose 169 285 H 265 H 239 H Test 12/09/18 06:00 12/09/18 08:06 White Blood Count 4.3 L Red Blood Count 3.33 #L Hemoglobin 7.9 L Hematocrit 25.9 L Mean Corpuscular 77.8 L Volume Mean Corpuscular 23.7 L Hemoglobin Mean Corpuscular 30.5 L Hemoglobin Concent Red Cell 21.1 H Distribution Width Platelet Count 163 # Mean Platelet Volume Immature 0.500 H Granulocytes % Neutrophils % 87.1 H Lymphocytes % 10.5 L Monocytes % 1.9 Eosinophils % 0.0 Basophils % 0.0 Nucleated Red Blood 0.0 Cells % Immature 0.020 Granulocytes # Neutrophils # 3.7 Lymphocytes # 0.5 L Monocytes # 0.1 L Eosinophils # 0.0 Basophils # 0.0 Nucleated Red Blood 0.0 Cells # Sodium Level 141 Potassium Level 4.3 Chloride Level 96 L Carbon Dioxide Level 33 H Anion Gap 12 Blood Urea Nitrogen 82 H Creatinine 1.98 H Est Glomerular Filtrat Rate mL/min Glucose Level 260 H Calcium Level 9.3 Phosphorus Level 3.5 Magnesium Level 1.8 Bedside Glucose 274 H Medications Medication Current Medications IV Flush (NS 3 ml) 3 ml PER PROTOCOL IV ; Start 11/16/18 at 19:30 Ondansetron HCl (Zofran Inj) 4 mg Q6H PRN IV NAUSEA/VOMITING; Start 11/16/18 at 19:30 Acetaminophen (Tylenol Tab) 650 mg Q6H PRN PO .PAIN 1-3 OR TEMP; Start 11/16/18 at 19:30 Acetaminophen/ Hydrocodone Bitart ([place] (5/325)) 1 tab Q6H PRN PO .MOD PAIN 4- 6 Last administered on 12/08/18at 00:32; Admin Dose 1 TAB; Start 11/16/18 at 19:30 Docusate Sodium (Colace) 100 mg Q12H PRN PO .CONSTIPATION; Start 11/16/18 at 19:30 Zolpidem Tartrate (Ambien) 5 mg QHS PRN PO .INSOMNIA Last administered on 11/22/18at 23:20; Admin Dose 5 MG; Start 11/16/18 at 19:30 Clotrimazole (Lotrimin Cr) 1 applic BID TOP Last administered on 12/09/18at 10:31; Admin Dose 1 APPLIC; Start 11/16/18 at 21:00 Fluticasone/ Vilanterol (Breo Ellipta 100-25 Mcg Inh) 1 inh DAILY INH Last administered on 12/09/18at 10:27; Admin Dose 1 INH; Start 11/17/18 at 12:00 Metoprolol Tartrate (Lopressor) 5 mg Q4H PRN IV HR>110 Hold SBP<100; Start 11/23/18 at 13:00 IV Flush (NS 10 ml) 10 ml PRN PRN IV IV PROTOCOL; Start 11/24/18 at 16:00 Miscellaneous Information 1 ea NOTE XX Last administered on 11/29/18at 12:55; Admin Dose 1 EA; Start 11/24/18 at 20:30 Glucose (Glutose) 15 gm Q15M PRN PO DECREASED GLUCOSE; Start 11/24/18 at 20:30 Glucose (Glutose) 22.5 gm Q15M PRN PO DECREASED GLUCOSE; Start 11/24/18 at 20:30 Dextrose (D50w Syringe) 25 ml Q15M PRN IV DECREASED GLUCOSE Last administered on 11/26/18at 01:40; Admin Dose 25 ML; Start 11/24/18 at 20:30 Dextrose (D50w Syringe) 50 ml Q15M PRN IV DECREASED GLUCOSE Last administered on 11/29/18at 06:01; Admin Dose 50 ML; Start 11/24/18 at 20:30 Glucagon (Glucagen) 1 mg Q15M PRN IM DECREASED GLUCOSE; Start 11/24/18 at 20:30 Glucose (Glutose) 15 gm Q15M PRN BUCCAL DECREASED GLUCOSE; Start 11/24/18 at 20:30 Insulin Aspart (Novolog Insulin Pen) NOVOLOG *MILD* ALGORITHM WITH MEALS BEDTIME SC Last administered on 12/09/18at 08:29; Admin Dose 4 UNIT; Start 11/28/18 at 11:30 Metoprolol Tartrate (Lopressor) 50 mg BID PO Last administered on 12/09/18at 10:28; Admin Dose 50 MG; Start 11/28/18 at 21:00 Furosemide (Lasix) 40 mg BID DIURETICS IV Last administered on 12/09/18at 05:38; Admin Dose 40 MG; Start 11/30/18 at 18:00 Metolazone (Zaroxolyn) 2.5 mg DAILY PO Last administered on 12/09/18 10:29; Admin Dose 2.5 MG; Start 12/07/18 at 09:00 Albuterol/ Ipratropium (Duoneb) 3 ml Q4H RESP THERAPY PRN HHN SHORTNESS OF BREATH Last administered on 12/08/18 11:00; Admin Dose 3 ML; Start 12/07/18 at 10:00 Alteplase, Recombinant (Cathflo (Activase)) 6 mg MAY REPEAT X1 PRN CATHETER IF CATHETER REMAINS OCCULUDED Last administered on 12/08/18 06:01; Admin Dose 6 MG; Start 12/08/18 at 05:30 Albuterol/ Ipratropium (Duoneb) 3 ml Q6H RESP THERAPY HHN Last administered on 12/09/18 08:52; Admin Dose 3 ML; Start 12/08/18 at 11:00 Methylprednisolone Sodium Succinate (Solu-Medrol) 40 mg Q8 IV Last administered on 12/09/18 05:38; Admin Dose 40 MG; Start 12/08/18 at 14:00 ZACH HEALY Dec 09, 2018 11:11
[2018-12-09 14:46] VITALS: BP 139/66; PULSE 68; RESP 18
--- NOTE | 2018-12-09 17:17 | PN ---
Date/Time of Note Date/Time of Note DATE: 12/09/18 TIME: 17:16 Assessment/Plan VTE Prophylaxis Risk score (from Ns)>0 risk: 13 SCD applied (from Ns): Yes Pharmacological prophylaxis: heparin Lines/Catheters IV Catheter Type (from Nrs): PICC Line Central line still needed: No Urinary Cath still in place: No Assessment/Plan Hospital Course 83 yo female with , diastolic CHF with acute respiratory failure and volume overload from CHF and BRIE. She was transferred to ICU and was at risk for intubation. HD was intiated and patient has improved markedly. Respiratory status stable. Remains a bit hypervolemic. Holding HD now. Kidneys recovering. Now wtih thrombocytopenia concerning for HIT Pleural effusion: - Thoracentesis. 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 Likely will need subacute rehab. Result Diagram: 12/09/18 0600 12/09/18 0600 Results 24hrs Laboratory Tests Test 12/08/18 17:22 12/08/18 20:50 12/09/18 01:14 12/09/18 06:00 Bedside Glucose 285 H 265 H 239 H White Blood Count 4.3 L Red Blood Count 3.33 #L Hemoglobin 7.9 L Hematocrit 25.9 L Mean Corpuscular 77.8 L Volume Mean Corpuscular 23.7 L Hemoglobin Mean Corpuscular 30.5 L Hemoglobin Concent Red Cell 21.1 H Distribution Width Platelet Count 163 # Mean Platelet Volume Immature 0.500 H Granulocytes % Neutrophils % 87.1 H Lymphocytes % 10.5 L Monocytes % 1.9 Eosinophils % 0.0 Basophils % 0.0 Nucleated Red Blood 0.0 Cells % Immature 0.020 Granulocytes # Neutrophils # 3.7 Lymphocytes # 0.5 L Monocytes # 0.1 L Eosinophils # 0.0 Basophils # 0.0 Nucleated Red Blood 0.0 Cells # Sodium Level 141 Potassium Level 4.3 Chloride Level 96 L Carbon Dioxide Level 33 H Anion Gap 12 Blood Urea Nitrogen 82 H Creatinine 1.98 H Est Glomerular Filtrat Rate mL/min Glucose Level 260 H Calcium Level 9.3 Phosphorus Level 3.5 Magnesium Level 1.8 Test 12/09/18 08:06 12/09/18 14:11 Bedside Glucose 274 H Prothrombin Time 17.3 #H Prothrombin Time 1.4 Ratio INR International 1.40 Normalized Ratio Activated 33.7 Partial Thromboplast Time Subjective 24 Hr Interval Summary Free Text/Dictation A bit SOB. XR confirms pleural effusion Exam/Review of Systems Exam Vitals Vital Signs Date Temp Pulse Resp B/P (MAP) Pulse Ox O2 O2 Flow FiO2 Time Delivery Rate 12/09/18 Nasal 2.0 15:44 Cannula 12/09/18 73 18 92 21 15:06 12/09/18 97.8 139/66 14:46 (90) Intake and Output 12/08/18 12/08/18 12/09/18 1515:00 23:00 07:00 IntakeIntake Total 590 ml 410 ml BalanceBalance 590 ml 410 ml Constitutional: alert, oriented, well developed Psych: no complaints, nl mood/affect Head: normocephalic, atraumatic Eyes: nl conjunctiva, EOMI, nl lids, nl sclera, PERRL ENMT: nl external ears & nose, nl lips & teeth, nl nasal mucosa & septum Neck: supple, non-tender Respiratory: clear to auscultation, normal air movement Cardiovascular: regular rate and rhythm, nl pulses Gastrointestinal: soft, nl liver, spleen, non-tender Musculoskeletal: nl extremities to inspection, nl gait and stance Extremities: normal pulses Neurological: CALENDER RUNNER II-XII intact, nl mental status, nl speech, nl strength Skin: nl turgor; No rash or lesions Lymph: nl lymph nodes Results Results 24hrs Laboratory Tests Test 12/08/18 17:22 12/08/18 20:50 12/09/18 01:14 12/09/18 06:00 Bedside Glucose 285 H 265 H 239 H White Blood Count 4.3 L Red Blood Count 3.33 #L Hemoglobin 7.9 L Hematocrit 25.9 L Mean Corpuscular 77.8 L Volume Mean Corpuscular 23.7 L Hemoglobin Mean Corpuscular 30.5 L Hemoglobin Concent Red Cell 21.1 H Distribution Width Platelet Count 163 # Mean Platelet Volume Immature 0.500 H Granulocytes % Neutrophils % 87.1 H Lymphocytes % 10.5 L Monocytes % 1.9 Eosinophils % 0.0 Basophils % 0.0 Nucleated Red Blood 0.0 Cells % Immature 0.020 Granulocytes # Neutrophils # 3.7 Lymphocytes # 0.5 L Monocytes # 0.1 L Eosinophils # 0.0 Basophils # 0.0 Nucleated Red Blood 0.0 Cells # Sodium Level 141 Potassium Level 4.3 Chloride Level 96 L Carbon Dioxide Level 33 H Anion Gap 12 Blood Urea Nitrogen 82 H Creatinine 1.98 H Est Glomerular Filtrat Rate mL/min Glucose Level 260 H Calcium Level 9.3 Phosphorus Level 3.5 Magnesium Level 1.8 Test 12/09/18 08:06 12/09/18 14:11 Bedside Glucose 274 H Prothrombin Time 17.3 #H Prothrombin Time 1.4 Ratio INR International 1.40 Normalized Ratio Activated 33.7 Partial Thromboplast Time Medications Medication Current Medications IV Flush (NS 3 ml) 3 ml PER PROTOCOL IV ; Start 11/16/18 at 19:30 Ondansetron HCl (Zofran Inj) 4 mg Q6H PRN IV NAUSEA/VOMITING; Start 11/16/18 at 19:30 Acetaminophen (Tylenol Tab) 650 mg Q6H PRN PO .PAIN 1-3 OR TEMP; Start 11/16/18 at 19:30 Acetaminophen/ Hydrocodone Bitart ([place] (5/325)) 1 tab Q6H PRN PO .MOD PAIN 4- 6 Last administered on 12/08/18at 00:32; Admin Dose 1 TAB; Start 11/16/18 at 19:30 Docusate Sodium (Colace) 100 mg Q12H PRN PO .CONSTIPATION; Start 11/16/18 at 19:30 Zolpidem Tartrate (Ambien) 5 mg QHS PRN PO .INSOMNIA Last administered on 11/22/18 23:20; Admin Dose 5 MG; Start 11/16/18 at 19:30 Clotrimazole (Lotrimin Cr) 1 applic BID TOP Last administered on 12/09/18at 10:31; Admin Dose 1 APPLIC; Start 11/16/18 at 21:00 Fluticasone/ Vilanterol (Breo Ellipta 100-25 Mcg Inh) 1 inh DAILY INH Last administered on 12/09/18at 10:27; Admin Dose 1 INH; Start 11/17/18 at 12:00 Metoprolol Tartrate (Lopressor) 5 mg Q4H PRN IV HR>110 Hold SBP<100; Start 11/23/18 at 13:00 IV Flush (NS 10 ml) 10 ml PRN PRN IV IV PROTOCOL; Start 11/24/18 at 16:00 Miscellaneous Information 1 ea NOTE XX Last administered on 11/29/18at 12:55; Admin Dose 1 EA; Start 11/24/18 at 20:30 Glucose (Glutose) 15 gm Q15M PRN PO DECREASED GLUCOSE; Start 11/24/18 at 20:30 Glucose (Glutose) 22.5 gm Q15M PRN PO DECREASED GLUCOSE; Start 11/24/18 at 20:30 Dextrose (D50w Syringe) 25 ml Q15M PRN IV DECREASED GLUCOSE Last administered on 11/26/18 01:40; Admin Dose 25 ML; Start 11/24/18 at 20:30 Dextrose (D50w Syringe) 50 ml Q15M PRN IV DECREASED GLUCOSE Last administered on 11/29/18at 06:01; Admin Dose 50 ML; Start 11/24/18 at 20:30 Glucagon (Glucagen) 1 mg Q15M PRN IM DECREASED GLUCOSE; Start 11/24/18 at 20:30 Glucose (Glutose) 15 gm Q15M PRN BUCCAL DECREASED GLUCOSE; Start 11/24/18 at 20:30 Insulin Aspart (Novolog Insulin Pen) NOVOLOG *MILD* ALGORITHM WITH MEALS BEDTIME SC Last administered on 12/09/18 12:18; Admin Dose 4 UNIT; Start at 11:30 Metoprolol Tartrate (Lopressor) 50 mg BID PO Last administered on 12/09/18 10:28; Admin Dose 50 MG; Start 11/28/18 at 21:00 Furosemide (Lasix) 40 mg BID DIURETICS IV Last administered on 12/09/18 05:38; Admin Dose 40 MG; Start 11/30/18 at 18:00 Metolazone (Zaroxolyn) 2.5 mg DAILY PO Last administered on 12/09/18 10:29; Admin Dose 2.5 MG; Start 12/07/18 at 09:00 Albuterol/ Ipratropium (Duoneb) 3 ml Q4H RESP THERAPY PRN HHN SHORTNESS OF BREATH Last administered on 12/08/18 11:00; Admin Dose 3 ML; Start 12/07/18 at 10:00 Alteplase, Recombinant (Cathflo (Activase)) 6 mg MAY REPEAT X1 PRN CATHETER IF CATHETER REMAINS OCCULUDED Last administered on 12/08/18 06:01; Admin Dose 6 MG; Start 12/08/18 at 05:30 Albuterol/ Ipratropium (Duoneb) 3 ml Q6H RESP THERAPY HHN Last administered on 12/09/18 15:05; Admin Dose 3 ML; Start 12/08/18 at 11:00 Methylprednisolone Sodium Succinate (Solu-Medrol) 40 mg Q8 IV Last administered on 12/09/18 14:05; Admin Dose 40 MG; Start 12/08/18 at 14:00 HARIS GREEN MD Dec 09, 2018 17:16
[2018-12-09] MEDS ORDERED: LIDOCAINE 1% (MPF) 5 ML VIAL ONE (17:48)
[2018-12-09 20:00] VITALS: BP 131/62; PULSE 69; RESP 18
[2018-12-09] MEDS ORDERED: INSULIN ASPART [NOVOLOG] 3 ML PEN SC ONE (21:30)
[2018-12-10 02:00] VITALS: BP 126/60; PULSE 68; RESP 18
[2018-12-10] MEDS: ALBUTEROL/IPRATROPIUM (NEB) 3 ML AMP HHN SCH ×4 (02:20→20:39)
[2018-12-10] MEDS ORDERED: INSULIN ASPART [NOVOLOG] 3 ML PEN SC ONE (05:00)
[2018-12-10] MEDS: METHYLPREDNISOLONE 40 MG INJ IV SCH (05:18)
[2018-12-10] MEDS: FUROSEMIDE 40 MG INJ IV SCH (05:26)
[2018-12-10 08:53] VITALS: BP 146/89; PULSE 84; RESP 20
[2018-12-10] MEDS: FLUTICASONE/VILANTEROL 100-25 INH SCH (08:56)
[2018-12-10] MEDS: METOPROLOL 50 MG TAB PO SCH ×2 (08:57→21:29)
[2018-12-10] MEDS: BALSAM PERU/CASTOR OIL 60 GM TUBE TOP SCH ×2 (08:58→21:33)
[2018-12-10] MEDS: CLOTRIMAZOLE 1% 30 GM CR TOP SCH ×2 (08:58→21:33)
[2018-12-10] MEDS: INSULIN ASPART [NOVOLOG] 3 ML PEN SC SCH ×6 (09:01→21:00)
--- NOTE | 2018-12-10 09:17 | PN ---
DATE: 12/10/2018 SUBJECTIVE: The patient is stable, no events overnight. Patient continues to have ongoing wheezes. OBJECTIVE: VITAL SIGNS: Blood pressure is 126/60, respiration 18, pulse 68, temperature 98.2. HEENT: Head is normocephalic. NECK: Supple. HEART: Regular rate. LUNGS: Show diminished breath sounds at the base. ABDOMEN: Soft, nontender to palpation without rebound or guarding. EXTREMITIES: Negative for clubbing, cyanosis. Trace edema. DERMATOLOGIC: No rashes. MUSCULOSKELETAL: No joint effusion. NEUROLOGIC: No change in exam. MEDICATIONS: Reviewed. LABORATORY DATA: Shows sodium 141, potassium 4.2, bicarb 34, BUN 90, creatinine 2.12. White count 5 .3, hemoglobin 8.1, platelet count is 201. ASSESSMENT AND PLAN: 1. Nonoliguric acute kidney on top of chronic kidney disease with previous baseline creatinine of 1. 5 mg/dL. Etiology of acute kidney injury is multifactorial secondary to hemodynamics, cardiorenal sy ndrome, possible tubular injury. The patient is status post hemodialysis. The patient's renal funct ion has improved as creatinine has been stable. However, the patient has a progressive azotemia, lik keven due to diuretic therapy. Plan is to deescalate diuretics. Will monitor volume status, renal fun ction and electrolytes closely. 2. Acute congestive heart failure exacerbation. The patient is clinically improving. Will de-escal ate diuretic therapy due to progressive azotemia. Monitor closely. 3. Anemia. Monitor hemoglobin and hematocrit levels. 4. Mineral bone disorder. Monitor calcium and phosphorus levels. 5. Acute respiratory failure secondary to congestive heart failure, reactive airway disease. Contin ue current medical management. Continue supplemental oxygen, nebulizers, continue diuretic therapy, will be adjusted as stated above. 6. Atrial fibrillation. Continue current treatment plan. 7. Diabetes. Continue current insulin regimen. 8. Acute encephalopathy, etiology is toxic metabolic. 9. Aortic stenosis. 10. Alkalosis. Continue to monitor. Dictated By: JOCELINE OLEA/MIRTA Conf#: [id number] DID#: [id number]
--- NOTE | 2018-12-10 10:58 | CONS ---
Assessment/Plan Assessment/Plan Assessment/Plan (Daily) Assessment and recommendations; 1. Patient admitted with sepsis due to lower extremity cellulitis status post antibiotic treatment. 2. Development of acute renal insufficiency patient was on hemodialysis with severe generalized anasarca as well as pulmonary edema with complete resolution of anasarca but patient has still persistent pulmonary edema on chest x-ray. 3. Onset of COPD exacerbation in hospital. 4. History of hypertension or diabetes. 5. COPD. 6. Chronic atrial fibrillation. 7. Chronic anemia. Continue current supportive care. Add Zithromax orally. Continue current Solu-Medrol dosing as well as current bronchodilator regimen. Prognosis is guarded. Consultation Date/Type/Reason Admit Date/Time Nov 16, 2018 at 17:17 Initial Consult Date Type of Consult Pulmonary/critical care Patient's condition has taken a turn for the worse with altered mental status. Patient now has been transferred to ICU. Hemodialysis will be started shortly. Patient appears confused. But is hemodynamically stable. General exam; elderly woman, awake, agitated off and on. Requesting Provider: JABIER SEBASTIAN Date/Time of Note DATE: 12/10/18 TIME: 10:56 24 HR Interval Summary Free Text/Dictation Patient's condition is slightly worse today. With increasing chest congestion coughing and mild wheezing. Patient underwent thoracentesis yesterday. Only 300 mL of fluid could be drained. General exam; elderly female, awake and alert. Currently in no distress. Coughing episodes were observed. Exam/Review of Systems Exam Vitals Vital Signs Date Temp Pulse Resp B/P (MAP) Pulse Ox O2 O2 Flow FiO2 Time Delivery Rate 12/10/18 98.0 84 20 146/89 100 Nasal 2.0 08:53 (108) Cannula 12/09/18 21 15:06 Intake and Output 12/09/18 12/09/18 12/10/18 1515:00 23:00 07:00 IntakeIntake Total 120 ml 480 ml BalanceBalance 120 ml 480 ml Exam H EENT exam; supple neck, positive JVD. Patient is edentulous and has dentures. No neck masses. Chest exam; diminished breath sounds throughout with mild expiratory wheezing bilaterally. S1-S2 audible, no murmurs. Irregular rhythm. Abdomen exam; soft, nontender. No organomegaly. Bowel sounds audible. Extremity exam; no edema. PARTITION NOTCHER exam; no focal deficit. Results Result Diagram: 12/10/18 0608 12/10/18 0608 Results 24hrs Laboratory Tests Test 12/09/18 12:00 12/09/18 14:11 12/09/18 18:07 12/09/18 20:38 Bedside Glucose 289 H 316 H 379 H Prothrombin Time 17.3 #H Prothrombin Time 1.4 Ratio INR International 1.40 Normalized Ratio Activated 33.7 Partial Thromboplast Time Test 12/10/18 03:10 12/10/18 05:22 12/10/18 06:08 Bedside Glucose 343 H 332 H White Blood Count 5.3 # Red Blood Count 3.40 L Hemoglobin 8.1 L Hematocrit 25.9 L Mean Corpuscular 76.2 L Volume Mean Corpuscular 23.8 L Hemoglobin Mean Corpuscular 31.3 L Hemoglobin Concent Red Cell 21.3 H Distribution Width Platelet Count 201 # Mean Platelet Volume 12.4 H Immature 0.400 Granulocytes % Neutrophils % 88.8 H Lymphocytes % 7.1 L Monocytes % 3.7 Eosinophils % 0.0 Basophils % 0.0 Nucleated Red Blood 0.0 Cells % Immature 0.020 Granulocytes # Neutrophils # 4.7 Lymphocytes # 0.4 L Monocytes # 0.2 L Eosinophils # 0.0 Basophils # 0.0 Nucleated Red Blood 0.0 Cells # Sodium Level 141 Potassium Level 4.2 Chloride Level 98 Carbon Dioxide Level 34 H Anion Gap 9 Blood Urea Nitrogen 90 H Creatinine 2.12 H Est Glomerular Filtrat Rate mL/min Glucose Level 316 H Calcium Level 9.6 Phosphorus Level 3.7 Magnesium Level 1.9 Medications Medication Current Medications IV Flush (NS 3 ml) 3 ml PER PROTOCOL IV ; Start 11/16/18 at 19:30 Ondansetron HCl (Zofran Inj) 4 mg Q6H PRN IV NAUSEA/VOMITING; Start 11/16/18 at 19:30 Acetaminophen (Tylenol Tab) 650 mg Q6H PRN PO .PAIN 1-3 OR TEMP; Start 11/16/18 at 19:30 Acetaminophen/ Hydrocodone Bitart ([place] (5/325)) 1 tab Q6H PRN PO .MOD PAIN 4- 6 Last administered on 12/08/18at 00:32; Admin Dose 1 TAB; Start 11/16/18 at 19:30 Docusate Sodium (Colace) 100 mg Q12H PRN PO .CONSTIPATION; Start 11/16/18 at 19:30 Zolpidem Tartrate (Ambien) 5 mg QHS PRN PO .INSOMNIA Last administered on 11/22/18 23:20; Admin Dose 5 MG; Start 11/16/18 at 19:30 Clotrimazole (Lotrimin Cr) 1 applic BID TOP Last administered on 12/10/18 08:58; Admin Dose 1 APPLIC; Start 11/16/18 at 21:00 Fluticasone/ Vilanterol (Breo Ellipta 100-25 Mcg Inh) 1 inh DAILY INH Last administered on 12/10/18 08:56; Admin Dose 1 INH; Start 11/17/18 at 12:00 Metoprolol Tartrate (Lopressor) 5 mg Q4H PRN IV HR>110 Hold SBP<100; Start 11/23/18 at 13:00 IV Flush (NS 10 ml) 10 ml PRN PRN IV IV PROTOCOL; Start 11/24/18 at 16:00 Miscellaneous Information 1 ea NOTE XX Last administered on 11/29/18at 12:55; Admin Dose 1 EA; Start 11/24/18 at 20:30 Glucose (Glutose) 15 gm Q15M PRN PO DECREASED GLUCOSE; Start 11/24/18 at 20:30 Glucose (Glutose) 22.5 gm Q15M PRN PO DECREASED GLUCOSE; Start 11/24/18 at 20:30 Dextrose (D50w Syringe) 25 ml Q15M PRN IV DECREASED GLUCOSE Last administered on 11/26/18at 01:40; Admin Dose 25 ML; Start 11/24/18 at 20:30 Dextrose (D50w Syringe) 50 ml Q15M PRN IV DECREASED GLUCOSE Last administered on 11/29/18at 06:01; Admin Dose 50 ML; Start 11/24/18 at 20:30 Glucagon (Glucagen) 1 mg Q15M PRN IM DECREASED GLUCOSE; Start 11/24/18 at 20:30 Glucose (Glutose) 15 gm Q15M PRN BUCCAL DECREASED GLUCOSE; Start 11/24/18 at 20:30 Insulin Aspart (Novolog Insulin Pen) NOVOLOG *MILD* ALGORITHM WITH MEALS BEDTIME SC Last administered on 12/10/18at 09:01; Admin Dose 5 UNIT; Start 11/28/18 at 11:30 Metoprolol Tartrate (Lopressor) 50 mg BID PO Last administered on 12/10/18 08:57; Admin Dose 50 MG; Start 11/28/18 at 21:00 Furosemide (Lasix) 40 mg BID DIURETICS IV Last administered on 12/10/18 05:26; Admin Dose 40 MG; Start 11/30/18 at 18:00; Status Hold Metolazone (Zaroxolyn) 2.5 mg DAILY PO Last administered on 12/09/18 10:29; Admin Dose 2.5 MG; Start 12/07/18 at 09:00; Status Hold Albuterol/ Ipratropium (Duoneb) 3 ml Q4H RESP THERAPY PRN HHN SHORTNESS OF BREATH Last administered on 12/08/18 11:00; Admin Dose 3 ML; Start 12/07/18 at 10:00 Alteplase, Recombinant (Cathflo (Activase)) 6 mg MAY REPEAT X1 PRN CATHETER IF CATHETER REMAINS OCCULUDED Last administered on 12/08/18 06:01; Admin Dose 6 MG; Start 12/08/18 at 05:30 Albuterol/ Ipratropium (Duoneb) 3 ml Q6H RESP THERAPY HHN Last administered on 12/10/18 07:19; Admin Dose 3 ML; Start 12/08/18 at 11:00 Methylprednisolone Sodium Succinate (Solu-Medrol) 40 mg Q8 IV Last administered on 12/10/18 05:18; Admin Dose 40 MG; Start 12/08/18 at 14:00 ZCAH HEALY Dec 10, 2018 10:58
[2018-12-10] MEDS ORDERED: FURO40TA4 PO (11:15)
[2018-12-10] MEDS: INSULIN GLARGINE [LANTus] (100 UNITS/ML) SYG SC SCH ×2 (13:12→21:32)
[2018-12-10] MEDS: AZITHROMYCIN 250 MG TAB PO SCH (13:12)
[2018-12-10 14:50] VITALS: BP 153/70; PULSE 67; RESP 22
--- NOTE | 2018-12-10 17:15 | DS ---
Date/Time of Note Date/Time of Note DATE: 12/10/18 TIME: 17:06 Discharge Summary Admission/Discharge Info Admit Date/Time Nov 16, 2018 at 17:17 Discharge Date/Time Discharge Diagnosis Acute respiratory failure Cirrhosis Atrial fibrillation Hypertension BRIE ACute diastolic CHF Patient Condition: Stable Hospital Course 83 yo female with , diastolic CHF with acute respiratory failure and volume overload from CHF and BRIE. She was treated with diuretics. Her renal function deteriorated and respiratory status worsened. She was transferred to ICU and was at risk for intubation. HD was initiated and the patient's respiratory status improved markedly. Her kidney function improved and she did not require further HD. She was continued on diuretics. Respiratory status stable. Remains a bit hypervolemic. Holding HD now. Kidneys recovering. 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 She remained short of breath and we had difficulty controlling her volume status. Thoracentesis was performed yesterday with mild improvement. I recommended hospice to the patient's daughter and ROYAL young. However, Mansi asked to take her mother back home immediately. Diuretics were prescribed at discharge. Patient is very likely to return to the hospital, however family is adamant about taking her home Home Meds Active Scripts Furosemide* (Furosemide*) 40 Mg Tablet, 40 MG PO BID, #90 TAB 4 Refills Prov:HARIS GREEN MD 12/10/18 Clotrimazole* (Lotrimin*) 1%-30 Gm Cream..g., 1 APPLIC TOP BID, #1 TUB Please apply to the right lower extremity wound twice daily. Prov:DAVID RAUSCH NP 08/09/18 Insulin Glargine,Hum.rec.anlog (Basaglar Kwikpen U-100) 100 Unit/1 Ml Insuln.pen, 5 UNIT SC DAILY for 30 Days, #1 EA Prov:RAMIRO MORRIS MD 04/05/18 Linagliptin (TRADJENTA) 5 Mg Tablet, 5 MG PO DAILY for 30 Days, #30 TAB Prov:RAMIRO MORRIS MD 04/05/18 Insulin Aspart* (Novolog Insulin Pen*) 100 Unit/Ml Soln, 10 UNIT SC WITH LUNCH for 30 Days, #1 EA Prov:RAMIRO MORRIS MD 04/05/18 Insulin Aspart* (Novolog Insulin Pen*) 100 Unit/Ml Soln, 10 UNIT SC WITH DINNER for 30 Days, #1 EA Prov:RAMIRO MORRIS MD 04/05/18 Insulin Aspart* (Novolog Insulin Pen*) 100 Unit/Ml Soln, 6 UNIT SC WITH BREAKFAST for 30 Days, #1 EA Prov:RAMIRO MORRIS MD 04/05/18 Fluticasone-Vilanterol (Breo Ellipta Inhaler) 100-25 Mcg/Actuation Aer.pow.ba, 1 INH INH DAILY for 30 Days, #1 EA Prov:RAMIRO MORRIS MD 04/05/18 Aspirin (Aspirin) 81 Mg Chew, 81 MG PO DAILY for 30 Days, #30 TAB Prov:RAMIRO MORRIS MD 04/05/18 Metoprolol Tartrate* (Lopressor*) 25 Mg Tab, 75 MG PO BID for 30 Days, #60 TAB Prov:RAMIRO MORRIS MD 04/05/18 Tiotropium [place]* (Spiriva*) 18 Mcg Cap.w.dev, 1 INH INH DAILY for 30 Days, #30 CAP Prov:RAMIRO MORRIS MD 04/05/18 Psyllium Husk (Metamucil) 0.52 Gm Capsule, 0.52 GM PO DAILY for 30 Days, #30 CAP Prov:RAMIRO MORRIS MD 04/19/17 Reported Medications Albuterol Sulfate* (Proair HFA*) 8.5 Gm Hfa.aer.ad, 2 PUFF INH Q6H PRN for WHEEZING AND SOB, INH 03/16/15 Omeprazole* (Omeprazole*) 20 Mg Capsule.dr, 20 MG PO DAILY, CAP 03/16/15 Discontinued Scripts Hydralazine Hcl* (Apresoline*) 50 Mg Tab, 50 MG PO Q8 for 30 Days, #90 TAB Prov:RAMIRO MORRIS MD 04/05/18 Diltiazem Hcl* (Cardizem CD*) 120 Mg Cap.sr.24h, 120 MG PO BID for 30 Days, #60 TAB Prov:RAMIRO MORRIS MD 04/05/18 Apixaban* (Eliquis*) 5 Mg Tablet, 2.5 MG PO BID for 30 Days, #60 TAB Prov:RAMIRO MORRIS MD 04/05/18 Digoxin* (Digitek*) 0.125 Mg Tab, 0.125 MG PO DAILY@13, #30 3 Refills Prov:DALLAS PICKETT 03/22/15 Primary Care Provider Gordy Nunez DO Pending Labs Laboratory Tests Test 12/09/18 18:07 12/09/18 20:38 12/10/18 03:10 12/10/18 05:22 Bedside 316 379 343 332 Glucose mg/dL (70-220) mg/dL (70-220) mg/dL (70-220) mg/dL (70-220) Test 12/10/18 06:08 12/10/18 12:07 12/10/18 14:35 12/10/18 16:52 White Blood 5.3 Count 10^3/ul (4.8-10 .8) Red Blood 3.40 Count 10^6/ul (4.20-5 .40) Hemoglobin 8.1 g/dl (12.0-16.0 ) Hematocrit 25.9 % (37.0-47.0) Mean 76.2 Corpuscular fl (82.0-101.0) Volume Mean 23.8 Corpuscular pg (29.0-33.0) Hemoglobin Mean 31.3 Corpuscular g/dl (32.0-37.0 Hemoglobin Conc ) ent Red Cell 21.3 Distribution % (11.5-14.5) Width Platelet Count 201 10^3/UL (140-41 5) Mean Platelet 12.4 Volume fl (7.4-10.4) Immature 0.400 Granulocytes % % (0.001-0.429) Neutrophils % 88.8 % (39.0-77.0) Lymphocytes % 7.1 % (15.0-51.0) Monocytes % 3.7 % (0.0-11.0) Eosinophils % 0.0 % (0.0-7.0) Basophils % 0.0 % (0.0-2.0) Nucleated Red 0.0 Blood Cells % /100WBC (0.0-0. 0) Immature 0.020 Granulocytes # 10^3/ul (0.0-0. 031) Neutrophils # 4.7 10^3/ul (1.6-7. 5) Lymphocytes # 0.4 10^3/ul (0.8-2. 9) Monocytes # 0.2 10^3/ul (0.3-0. 9) Eosinophils # 0.0 10^3/ul (0.0-0. 5) Basophils # 0.0 10^3/ul (0.0-0. 1) Nucleated Red 0.0 Blood Cells # 10^3/ul (0.0-0. 0) Sodium Level 141 mmol/L (135-144 ) Potassium 4.2 Level mmol/L (3.5-5.1 ) Chloride Level 98 mmol/L (97-110) Carbon Dioxide 34 Level mmol/L (21-31) Anion Gap 9 (5-13) Blood Urea 90 mg/dl (7-20) Nitrogen Creatinine 2.12 mg/dl (0.44-1.0 0) Est Glomerular mL/min (>60) Filtrat Rate mL/min Glucose Level 316 mg/dl (70-220) Calcium Level 9.6 mg/dl (8.4-10.2 ) Phosphorus 3.7 Level mg/dl (2.5-4.9) Magnesium 1.9 Level mg/dl (1.7-2.5) Bedside 311 151 Glucose mg/dL (70-220) mg/dL (70-220) Urine Color YELLOW (YELLOW ) Urine Clarity SLIGHTLY CLOUD Y (CLEAR) Urine pH 7.0 (5.0-9.0) Urine Specific 1.009 (1.003-1 [place] .030) Urine Ketones NEGATIVE mg/dL (NEGATIV E) Urine Nitrite NEGATIVE mg/dL (NEGATIV E) Urine NEGATIVE Bilirubin mg/dL (NEGATIV E) Urine NEGATIVE Urobilinogen mg/dL (NEGATIV E) Urine Leukocyte TRACE Esterase Martha/ul (NEGATI VE) Urine 1 /HPF (0-5) Microscopic RBC Urine 5 /HPF (0-5) Microscopic WBC Urine Squamous FEW /HPF (FEW) Epithelial Cell s Urine 1+ Hemoglobin mg/dL (NEGATIV E) Urine Random 34.57 Creatinine mg/dl (20-320) Urine Random 106 Sodium mmol/L (30-90) Urine Glucose NEGATIVE mg/dL (NEGATIV E) Urine Total 19.0 Protein mg/dl (0.0-11. 9) HARIS GREEN MD Dec 10, 2018 17:15
--- NOTE | 2018-12-10 18:44 | CONS ---
Assessment/Plan Assessment/Plan Hospital Course (Demo Recall) IMP: 1.AF with mild RVR-rate controlled on current dose of BB 2.Renal failure 3.hyperkalemia 4.Bradycardia 5.CHF-diastolic acute on chronic EF 50% by echo this admit 6.HTN 7.-mod to severe by echo 08/09 8. Hematuria-improved 9. Platelet count improved Recc: -ICU -Now DNI -IVP PRN BB -Continue current PO BB dose -start hydralazine to improve overall BP control -Heparin and asa now held in the setting of anemia and worsening thrombocytopenia and f/u HIT and platelet count -Continue abx's and f/u cx data -Follow MS -HD now held and would follow volume status closely on lasix and thus transition to PO if is going to be d/c'd Consultation Date/Type/Reason Admit Date/Time Nov 16, 2018 at 17:17 Initial Consult Date 11/20/18 Type of Consult Cardiology Reason for Consultation AF/CHF Requesting Provider: JABIER SEBASTIAN Date/Time of Note DATE: 12/10/18 TIME: 18:41 Exam/Review of Systems Vital Signs Vitals Vital Signs Date Temp Pulse Resp B/P (MAP) Pulse Ox O2 O2 Flow FiO2 Time Delivery Rate 12/10/18 2.0 15:18 12/10/18 68 20 100 Nasal 15:16 Cannula 12/10/18 98.2 153/70 14:50 (97) 12/09/18 21 15:06 Intake and Output 12/09/18 12/09/18 12/10/18 1414:59 22:59 06:59 IntakeIntake Total 120 ml 480 ml BalanceBalance 120 ml 480 ml Exam Exam Review of Systems: CONSTITUTIONAL: No fevers, chills. PULMONARY: No sob CARDIOVASCULAR: No chest pain/palpitations GASTROINTESTINAL: No nausea/vomiting. GENITOURINARY: No hematuria/dysuria. MUSCULOSKELETAL: No myagias/arthalgias. PSYCHIATRIC: The patient denies depression. NEUROLOGIC: No weakness Constitutional: alert Psych: no complaints Head: normocephalic ENMT: mucosa pink and moist Neck: supple, jvd (9 cm water) Respiratory: clear to auscultation Cardiovascular: regular rate and rhythm Gastrointestinal: soft, non-tender Musculoskeletal: muscle tone (normal) Extremities: edema (trace but significantly decreased) Labs Result Diagram: 12/10/18 0608 12/10/18 0608 Results 24hrs Laboratory Tests Test 12/09/18 20:38 12/10/18 03:10 12/10/18 05:22 12/10/18 06:08 Bedside Glucose 379 H 343 H 332 H White Blood Count 5.3 # Red Blood Count 3.40 L Hemoglobin 8.1 L Hematocrit 25.9 L Mean Corpuscular 76.2 L Volume Mean Corpuscular 23.8 L Hemoglobin Mean Corpuscular 31.3 L Hemoglobin Concen t Red Cell 21.3 H Distribution Width Platelet Count 201 # Mean Platelet 12.4 H Volume Immature 0.400 Granulocytes % Neutrophils % 88.8 H Lymphocytes % 7.1 L Monocytes % 3.7 Eosinophils % 0.0 Basophils % 0.0 Nucleated Red 0.0 Blood Cells % Immature 0.020 Granulocytes # Neutrophils # 4.7 Lymphocytes # 0.4 L Monocytes # 0.2 L Eosinophils # 0.0 Basophils # 0.0 Nucleated Red 0.0 Blood Cells # Sodium Level 141 Potassium Level 4.2 Chloride Level 98 Carbon Dioxide 34 H Level Anion Gap 9 Blood Urea 90 H Nitrogen Creatinine 2.12 H Est Glomerular Filtrat Rate mL/min Glucose Level 316 H Calcium Level 9.6 Phosphorus Level 3.7 Magnesium Level 1.9 Test 12/10/18 08:35 12/10/18 12:07 12/10/18 14:35 12/10/18 16:52 Bedside Glucose 309 H 311 H 151 Urine Color YELLOW Urine Clarity SLIGHTLY CLOUDY A Urine pH 7.0 Urine Specific 1.009 [place] Urine Ketones NEGATIVE Urine Nitrite NEGATIVE Urine Bilirubin NEGATIVE Urine NEGATIVE Urobilinogen Urine Leukocyte TRACE A Esterase Urine Microscopic 1 RBC Urine Microscopic 5 WBC Urine Squamous FEW Epithelial Cells Urine Hemoglobin 1+ H Urine Random 34.57 Creatinine Urine Random 106 H Sodium Urine Glucose NEGATIVE Urine Total 19.0 H Protein Medications Medications Current Medications IV Flush (NS 3 ml) 3 ml PER PROTOCOL IV ; Start 11/16/18 at 19:30 Ondansetron HCl (Zofran Inj) 4 mg Q6H PRN IV NAUSEA/VOMITING; Start 11/16/18 at 19:30 Acetaminophen (Tylenol Tab) 650 mg Q6H PRN PO .PAIN 1-3 OR TEMP; Start 11/16/18 at 19:30 Acetaminophen/ Hydrocodone Bitart ([place] (5/325)) 1 tab Q6H PRN PO .MOD PAIN 4- 6 Last administered on 12/08/18at 00:32; Admin Dose 1 TAB; Start 11/16/18 at 19:30 Docusate Sodium (Colace) 100 mg Q12H PRN PO .CONSTIPATION; Start 11/16/18 at 19:30 Zolpidem Tartrate (Ambien) 5 mg QHS PRN PO .INSOMNIA Last administered on 11/22/18 23:20; Admin Dose 5 MG; Start 11/16/18 at 19:30 Clotrimazole (Lotrimin Cr) 1 applic BID TOP Last administered on 12/10/18 08:58; Admin Dose 1 APPLIC; Start 11/16/18 at 21:00 Fluticasone/ Vilanterol (Breo Ellipta 100-25 Mcg Inh) 1 inh DAILY INH Last administered on 12/10/18 08:56; Admin Dose 1 INH; Start 11/17/18 at 12:00 Metoprolol Tartrate (Lopressor) 5 mg Q4H PRN IV HR>110 Hold SBP<100; Start 11/23/18 at 13:00 IV Flush (NS 10 ml) 10 ml PRN PRN IV IV PROTOCOL; Start 11/24/18 at 16:00 Miscellaneous Information 1 ea NOTE XX Last administered on 11/29/18at 12:55; Admin Dose 1 EA; Start 11/24/18 at 20:30 Glucose (Glutose) 15 gm Q15M PRN PO DECREASED GLUCOSE; Start 11/24/18 at 20:30 Glucose (Glutose) 22.5 gm Q15M PRN PO DECREASED GLUCOSE; Start 11/24/18 at 20:30 Dextrose (D50w Syringe) 25 ml Q15M PRN IV DECREASED GLUCOSE Last administered on 11/26/18at 01:40; Admin Dose 25 ML; Start 11/24/18 at 20:30 Dextrose (D50w Syringe) 50 ml Q15M PRN IV DECREASED GLUCOSE Last administered on 11/29/18at 06:01; Admin Dose 50 ML; Start 11/24/18 at 20:30 Glucagon (Glucagen) 1 mg Q15M PRN IM DECREASED GLUCOSE; Start 11/24/18 at 20:30 Glucose (Glutose) 15 gm Q15M PRN BUCCAL DECREASED GLUCOSE; Start 11/24/18 at 20:30 Insulin Aspart (Novolog Insulin Pen) NOVOLOG *MILD* ALGORITHM WITH MEALS BEDTIME SC Last administered on 12/10/18 16:57; Admin Dose 1 UNIT; Start 11/28/18 at 11:30 Metoprolol Tartrate (Lopressor) 50 mg BID PO Last administered on 12/10/18 08:57; Admin Dose 50 MG; Start 11/28/18 at 21:00 Furosemide (Lasix) 40 mg BID DIURETICS IV Last administered on 12/10/18 05:26; Admin Dose 40 MG; Start 11/30/18 at 18:00; Status Hold Metolazone (Zaroxolyn) 2.5 mg DAILY PO Last administered on 12/09/18 10:29; Admin Dose 2.5 MG; Start 12/07/18 at 09:00; Status Hold Albuterol/ Ipratropium (Duoneb) 3 ml Q4H RESP THERAPY PRN HHN SHORTNESS OF BREATH Last administered on 12/08/18 11:00; Admin Dose 3 ML; Start 12/07/18 at 10:00 Alteplase, Recombinant (Cathflo (Activase)) 6 mg MAY REPEAT X1 PRN CATHETER IF CATHETER REMAINS OCCULUDED Last administered on 12/08/18 06:01; Admin Dose 6 MG; Start 12/08/18 at 05:30 Albuterol/ Ipratropium (Duoneb) 3 ml Q6H RESP THERAPY HHN Last administered on 12/10/18 15:14; Admin Dose 3 ML; Start 12/08/18 at 11:00 Azithromycin (Zithromax) 250 mg DAILY PO Last administered on 12/10/18 13:12; Admin Dose 250 MG; Start 12/10/18 at 12:30 Insulin Glargine (Lantus) 16 units DAILY@0800 SC Last administered on 12/10/18 13:12; Admin Dose 16 UNITS; Start 12/10/18 at 12:30 Insulin Aspart (Novolog Insulin Pen) 5 unit WITH MEALS SC Last administered on 12/10/18 16:55; Admin Dose 5 UNIT; Start 12/10/18 at 11:30 GHASSAN SHERMAN Dec 10, 2018 18:44
[2018-12-10 20:00] VITALS: BP 114/69; PULSE 77; RESP 18
[2018-12-11 02:01] VITALS: BP 110/58; PULSE 83; RESP 18
[2018-12-11] MEDS: ALBUTEROL/IPRATROPIUM (NEB) 3 ML AMP HHN SCH ×4 (02:46→20:23)
[2018-12-11] MEDS: INSULIN ASPART [NOVOLOG] 3 ML PEN SC SCH ×7 (07:35→21:00)
[2018-12-11 08:42] VITALS: BP 112/71; PULSE 65; RESP 18
[2018-12-11] MEDS: FLUTICASONE/VILANTEROL 100-25 INH SCH (08:54)
[2018-12-11] MEDS: AZITHROMYCIN 250 MG TAB PO SCH (08:54)
[2018-12-11] MEDS: METOPROLOL 50 MG TAB PO SCH ×2 (08:55→20:59)
[2018-12-11] MEDS: CLOTRIMAZOLE 1% 30 GM CR TOP SCH ×2 (08:56→21:00)
[2018-12-11] MEDS: BALSAM PERU/CASTOR OIL 60 GM TUBE TOP SCH ×2 (08:56→21:00)
[2018-12-11] MEDS: GLUCOSE GEL 15 GRAM TUBE PO PRN ×2 (09:08→09:45)
--- NOTE | 2018-12-11 09:12 | PN ---
DATE: 12/11/2018 SUBJECTIVE: The patient is stable. No events overnight. No fevers, chills, nausea, or vomiting. T he patient continues to have shortness of breath. OBJECTIVE: VITAL SIGNS: Blood pressure is 110/58, respirations 18, pulse 83, temperature 97.9. HEENT: Head is normocephalic. NECK: Supple. HEART: Regular rate. LUNGS: Show diminished breath sounds at the base. ABDOMEN: Soft, nontender to palpation without rebound or guarding. EXTREMITIES: Negative for clubbing, cyanosis, no edema. DERMATOLOGIC: No rashes. MUSCULOSKELETAL: No joint effusion. NEUROLOGIC: No change in exam. MEDICATIONS: Reviewed. LABORATORY DATA: Shows sodium 143, potassium 3.8, chloride 96, BUN 93, creatinine 2.22. White count 6.7, hemoglobin 8.1, platelet count is 181. ASSESSMENT AND PLAN: 1. Nonoliguric acute kidney injury on top of chronic kidney disease with previous baseline creatinin e of 1.5 mg/dL. Etiology of acute kidney injury is secondary to hemodynamics, cardiorenal syndrome, possible tubular injury. The patient is currently off hemodialysis. The patient's renal function valentino s been stable, but has declined in the last 48 hours with worsening azotemia. The patient's diuretic s have been on hold. We will continue to monitor renal function and volume status closely. 2. Congestive heart failure exacerbation. The patient is clinically improving, currently holding di uretics due to worsening renal function and progressive azotemia. Continue to monitor. 4. Anemia. Continue to monitor hemoglobin and hematocrit levels. 5. Mineral bone disorder, monitor calcium and phosphorus levels. 6. Acute respiratory failure secondary to congestive heart failure, reactive airway disease. Contin ue medical management. Continue supplemental oxygen, continue nebulizers. 7. Atrial fibrillation. Continue current treatment plan. 8. Diabetes. Continue current insulin regimen. 9. Acute encephalopathy, etiology is toxic metabolic. 10. Aortic stenosis. 11. Alkalosis secondary to acute kidney injury, diuretic regimen possible hypercapnia. Continue to monitor. Dictated By: JOCELINE MCCALLUM DO NR/NTS Conf#: [id number] DID#: [id number] CC: JOCELINE MCCALLUM DO; JABIER SEBASTIAN MD; HARIS GREEN MD;*End*
[2018-12-11] MEDS ORDERED: INSULIN GLARGINE [LANTus] (100 UNITS/ML) SYG SC ONE (10:00)
--- NOTE | 2018-12-11 10:44 | CONS ---
Assessment/Plan Assessment/Plan Assessment/Plan (Daily) Congestive heart failure Massive fluid overload Morbid obesity End-stage renal disease on hemodialysis Mild to moderate dementia Fluid and electrolyte abnormalities Is improved remarkably awake alert conversant and in good spirits overall prognosis is extremely guarded. Discharge planning per primary care physician will suggest patient be transferred [facility] a [facility]. Consultation Date/Type/Reason Admit Date/Time Nov 16, 2018 at 17:17 Initial Consult Date Requesting Provider: JABIER SEBASTIAN Date/Time of Note DATE: 12/11/18 TIME: 10:42 Exam/Review of Systems Exam Vitals Vital Signs Date Temp Pulse Resp B/P (MAP) Pulse Ox O2 O2 Flow FiO2 Time Delivery Rate 12/11/18 97.8 65 18 112/71 96 Nasal 2.0 08:42 (85) Cannula 12/09/18 15:06 Intake and Output 12/10/18 12/10/18 12/11/18 1515:00 23:00 07:00 IntakeIntake Total 600 ml 300 ml OutputOutput Total 800 ml BalanceBalance -200 ml 300 ml Constitutional: alert, oriented, well developed, frail Respiratory: clear to auscultation, normal air movement, crackles/rales Cardiovascular: regular rate and rhythm, nl pulses; No bruits, No diastolic murmur, No edema, No gallop, No irregular rhythm, No jugular venous distention (JVD), No murmurs/extra sounds, No rub, No systolic murmur, No S3, No S4, No other Gastrointestinal: soft, nl liver, spleen, non-tender; No ascites, No bowel sounds, No distended, No firm, No hepatomegaly, No mass, No rebound or guarding, No splenomegaly, No surgical scars, No tender, No other Neurological: UPPER LEATHER SORTER II-XII intact, nl mental status, nl speech, nl strength, confused Results Result Diagram: 12/11/18 0554 12/11/18 0554 Results 24hrs Laboratory Tests Test 12/10/18 12:07 12/10/18 14:35 12/10/18 16:52 12/10/18 21:26 Bedside Glucose 311 H 151 137 Urine Color YELLOW Urine Clarity SLIGHTLY CLOUDY A Urine pH 7.0 Urine Specific 1.009 [place] Urine Ketones NEGATIVE Urine Nitrite NEGATIVE Urine Bilirubin NEGATIVE Urine NEGATIVE Urobilinogen Urine Leukocyte TRACE A Esterase Urine Microscopic 1 RBC Urine Microscopic 5 WBC Urine Squamous FEW Epithelial Cells Urine Hemoglobin 1+ H Urine Random 34.57 Creatinine Urine Random 106 H Sodium Urine Glucose NEGATIVE Urine Total 19.0 H Protein Test 12/11/18 05:54 12/11/18 10:03 12/11/18 10:20 12/11/18 10:37 White Blood Count 6.7 # Red Blood Count 3.44 L Hemoglobin 8.1 L Hematocrit 26.6 L Mean Corpuscular 77.3 L Volume Mean Corpuscular 23.5 L Hemoglobin Mean Corpuscular 30.5 L Hemoglobin Concen t Red Cell 21.9 H Distribution Width Platelet Count 181 Mean Platelet 11.8 H Volume Immature 0.400 Granulocytes % Neutrophils % 80.8 H Lymphocytes % 11.8 L Monocytes % 6.9 Eosinophils % 0.1 Basophils % 0.0 Nucleated Red 0.0 Blood Cells % Immature 0.030 Granulocytes # Neutrophils # 5.4 Lymphocytes # 0.8 Monocytes # 0.5 Eosinophils # 0.0 Basophils # 0.0 Nucleated Red 0.0 Blood Cells # Sodium Level 143 Potassium Level 3.8 Chloride Level 96 L Carbon Dioxide 36 H Level Anion Gap 11 Blood Urea 93 H Nitrogen Creatinine 2.22 H Est Glomerular Filtrat Rate mL/min Glucose Level 82 # Calcium Level 9.3 Phosphorus Level 3.7 Magnesium Level 1.9 Bedside Glucose 72 89 101 Medications Medication Current Medications IV Flush (NS 3 ml) 3 ml PER PROTOCOL IV ; Start 11/16/18 at 19:30 Ondansetron HCl (Zofran Inj) 4 mg Q6H PRN IV NAUSEA/VOMITING; Start 11/16/18 at 19:30 Acetaminophen (Tylenol Tab) 650 mg Q6H PRN PO .PAIN 1-3 OR TEMP; Start 11/16/18 at 19:30 Acetaminophen/ Hydrocodone Bitart ([place] (5/325)) 1 tab Q6H PRN PO .MOD PAIN 4- 6 Last administered on 12/08/18at 00:32; Admin Dose 1 TAB; Start 11/16/18 at 19:30 Docusate Sodium (Colace) 100 mg Q12H PRN PO .CONSTIPATION; Start 11/16/18 at 19:30 Zolpidem Tartrate (Ambien) 5 mg QHS PRN PO .INSOMNIA Last administered on 11/22/18at 23:20; Admin Dose 5 MG; Start 11/16/18 at 19:30 Clotrimazole (Lotrimin Cr) 1 applic BID TOP Last administered on 12/11/18 08:56; Admin Dose 1 APPLIC; Start 11/16/18 at 21:00 Fluticasone/ Vilanterol (Breo Ellipta 100-25 Mcg Inh) 1 inh DAILY INH Last administered on 12/11/18 08:54; Admin Dose 1 INH; Start 11/17/18 at 12:00 Metoprolol Tartrate (Lopressor) 5 mg Q4H PRN IV HR>110 Hold SBP<100; Start 11/23/18 at 13:00 IV Flush (NS 10 ml) 10 ml PRN PRN IV IV PROTOCOL; Start 11/24/18 at 16:00 Miscellaneous Information 1 ea NOTE XX Last administered on 11/29/18 12:55; Admin Dose 1 EA; Start 11/24/18 at 20:30 Glucose (Glutose) 15 gm Q15M PRN PO DECREASED GLUCOSE Last administered on 12/11/18 09:45; Admin Dose 15 GM; Start 11/24/18 at 20:30 Glucose (Glutose) 22.5 gm Q15M PRN PO DECREASED GLUCOSE; Start 11/24/18 at 20:30 Dextrose (D50w Syringe) 25 ml Q15M PRN IV DECREASED GLUCOSE Last administered on 11/26/18at 01:40; Admin Dose 25 ML; Start 11/24/18 at 20:30 Dextrose (D50w Syringe) 50 ml Q15M PRN IV DECREASED GLUCOSE Last administered on 11/29/18 06:01; Admin Dose 50 ML; Start 11/24/18 at 20:30 Glucagon (Glucagen) 1 mg Q15M PRN IM DECREASED GLUCOSE; Start 11/24/18 at 20:30 Glucose (Glutose) 15 gm Q15M PRN BUCCAL DECREASED GLUCOSE; Start 11/24/18 at 2 0:30 Insulin Aspart (Novolog Insulin Pen) NOVOLOG *MILD* ALGORITHM WITH MEALS BEDTIME SC Last administered on 12/10/18 16:57; Admin Dose 1 UNIT; Start 11/28/18 at 11:30 Metoprolol Tartrate (Lopressor) 50 mg BID PO Last administered on 12/11/18 08:55; Admin Dose 50 MG; Start 11/28/18 at 21:00 Furosemide (Lasix) 40 mg BID DIURETICS IV Last administered on 12/10/18 05:26; Admin Dose 40 MG; Start 11/30/18 at 18:00; Status Hold Metolazone (Zaroxolyn) 2.5 mg DAILY PO Last administered on 12/09/18 10:29; Admin Dose 2.5 MG; Start 12/07/18 at 09:00; Status Hold Albuterol/ Ipratropium (Duoneb) 3 ml Q4H RESP THERAPY PRN HHN SHORTNESS OF BREATH Last administered on 12/08/18 11:00; Admin Dose 3 ML; Start 12/07/18 at 10:00 Alteplase, Recombinant (Cathflo (Activase)) 6 mg MAY REPEAT X1 PRN CATHETER IF CATHETER REMAINS OCCULUDED Last administered on 12/08/18 06:01; Admin Dose 6 MG; Start 12/08/18 at 05:30 Albuterol/ Ipratropium (Duoneb) 3 ml Q6H RESP THERAPY HHN Last administered on 12/11/18 02:46; Admin Dose 3 ML; Start 12/08/18 at 11:00 Azithromycin (Zithromax) 250 mg DAILY PO Last administered on 12/11/18 08:54; Admin Dose 250 MG; Start 12/10/18 at 12:30 Insulin Glargine (Lantus) 16 units DAILY@0800 SC Last administered on 12/10/18 21:32; Admin Dose 16 UNITS; Start 12/10/18 at 12:30 Insulin Aspart (Novolog Insulin Pen) 5 unit WITH MEALS SC Last administered on 12/10/18 16:55; Admin Dose 5 UNIT; Start 12/10/18 at 11:30 Hydralazine HCl (Apresoline) 25 mg Q8 PO Last administered on 12/10/18 21:29; Admin Dose 25 MG; Start 12/10/18 at 22:00 MINI PAEZ Dec 11, 2018 10:44
--- NOTE | 2018-12-11 11:14 | CONS ---
Assessment/Plan Assessment/Plan Assessment/Plan (Daily) Assessment and recommendations; 1. Patient initially admitted for bilateral lower extremity cellulitis and developed acute renal failure with massive anasarca and CHF requiring ICU admission now weaned off BiPAP for the last few days with patient now experiencing COPD exacerbation currently on appropriate antimicrobial as well as bronchodilator regimen in conjunction with systemic steroids. Clinically improving. 2. Off hemodialysis now for the last several days. However chest x-ray showing persistent pulmonary edema. 3. History of chronic atrial fibrillation. 4. History of hypertension and diabetes. Continue current supportive care. Steroid taper in 24 hours as dictated by clinical status. Consultation Date/Type/Reason Admit Date/Time Nov 16, 2018 at 17:17 Initial Consult Date Type of Consult Pulmonary/critical care Patient's condition has taken a turn for the worse with altered mental status. Patient now has been transferred to ICU. Hemodialysis will be started shortly. Patient appears confused. But is hemodynamically stable. General exam; elderly woman, awake, agitated off and on. Requesting Provider: JABIER SEBASTIAN Date/Time of Note DATE: 12/11/18 TIME: 11:11 24 HR Interval Summary Free Text/Dictation Patient's condition is improving. Patient reports decreased chest congestion, wheezing, cough and shortness of breath. General exam; elderly female, awake and alert. Currently in no distress. Exam/Review of Systems Exam Vitals Vital Signs Date Temp Pulse Resp B/P (MAP) Pulse Ox O2 O2 Flow FiO2 Time Delivery Rate 12/11/18 Nasal 2.0 10:48 Cannula 12/11/18 97.8 65 18 112/71 96 08:42 (85) 12/09/18 21 15:06 Intake and Output 12/10/18 12/10/18 12/11/18 1515:00 23:00 07:00 IntakeIntake Total 600 ml 300 ml OutputOutput Total 800 ml BalanceBalance -200 ml 300 ml Exam H EENT exam; supple neck, positive JVD. No lymphadenopathy. Midline trachea. No thyromegaly. Patient is edentulous and has dentures. Chest exam; diminished but clear breath sounds. S1-S2 audible, no murmurs. Irregular rhythm. Abdomen exam; soft, nontender. No organomegaly. Bowel sounds audible. Extremity exam; no peripheral edema or clubbing. ELECTROPHYSIOLOGY TECH exam; no focal deficit. Results Result Diagram: 12/11/18 0554 12/11/18 0554 Results 24hrs Laboratory Tests Test 12/10/18 12:07 12/10/18 14:35 12/10/18 16:52 12/10/18 21:26 Bedside Glucose 311 H 151 137 Urine Color YELLOW Urine Clarity SLIGHTLY CLOUDY A Urine pH 7.0 Urine Specific 1.009 [place] Urine Ketones NEGATIVE Urine Nitrite NEGATIVE Urine Bilirubin NEGATIVE Urine NEGATIVE Urobilinogen Urine Leukocyte TRACE A Esterase Urine Microscopic 1 RBC Urine Microscopic 5 WBC Urine Squamous FEW Epithelial Cells Urine Hemoglobin 1+ H Urine Random 34.57 Creatinine Urine Random 106 H Sodium Urine Glucose NEGATIVE Urine Total 19.0 H Protein Test 12/11/18 05:54 12/11/18 10:03 12/11/18 10:20 12/11/18 10:37 White Blood Count 6.7 # Red Blood Count 3.44 L Hemoglobin 8.1 L Hematocrit 26.6 L Mean Corpuscular 77.3 L Volume Mean Corpuscular 23.5 L Hemoglobin Mean Corpuscular 30.5 L Hemoglobin Concen t Red Cell 21.9 H Distribution Width Platelet Count 181 Mean Platelet 11.8 H Volume Immature 0.400 Granulocytes % Neutrophils % 80.8 H Lymphocytes % 11.8 L Monocytes % 6.9 Eosinophils % 0.1 Basophils % 0.0 Nucleated Red 0.0 Blood Cells % Immature 0.030 Granulocytes # Neutrophils # 5.4 Lymphocytes # 0.8 Monocytes # 0.5 Eosinophils # 0.0 Basophils # 0.0 Nucleated Red 0.0 Blood Cells # Sodium Level 143 Potassium Level 3.8 Chloride Level 96 L Carbon Dioxide 36 H Level Anion Gap 11 Blood Urea 93 H Nitrogen Creatinine 2.22 H Est Glomerular Filtrat Rate mL/min Glucose Level 82 # Calcium Level 9.3 Phosphorus Level 3.7 Magnesium Level 1.9 Bedside Glucose 72 89 101 Medications Medication Current Medications IV Flush (NS 3 ml) 3 ml PER PROTOCOL IV ; Start 11/16/18 at 19:30 Ondansetron HCl (Zofran Inj) 4 mg Q6H PRN IV NAUSEA/VOMITING; Start 11/16/18 at 19:30 Acetaminophen (Tylenol Tab) 650 mg Q6H PRN PO .PAIN 1-3 OR TEMP; Start 11/16/18 at 19:30 Acetaminophen/ Hydrocodone Bitart ([place] (5/325)) 1 tab Q6H PRN PO .MOD PAIN 4- 6 Last administered on 12/08/18 00:32; Admin Dose 1 TAB; Start 11/16/18 at 19:30 Docusate Sodium (Colace) 100 mg Q12H PRN PO .CONSTIPATION; Start 11/16/18 at 19:30 Zolpidem Tartrate (Ambien) 5 mg QHS PRN PO .INSOMNIA Last administered on 11/22/18 23:20; Admin Dose 5 MG; Start 11/16/18 at 19:30 Clotrimazole (Lotrimin Cr) 1 applic BID TOP Last administered on 12/11/18 08:56; Admin Dose 1 APPLIC; Start 11/16/18 at 21:00 Fluticasone/ Vilanterol (Breo Ellipta 100-25 Mcg Inh) 1 inh DAILY INH Last administered on 12/11/18 08:54; Admin Dose 1 INH; Start 11/17/18 at 12:00 Metoprolol Tartrate (Lopressor) 5 mg Q4H PRN IV HR>110 Hold SBP<100; Start 11/23/18 at 13:00 IV Flush (NS 10 ml) 10 ml PRN PRN IV IV PROTOCOL; Start 11/24/18 at 16:00 Miscellaneous Information 1 ea NOTE XX Last administered on 11/29/18 12:55; Admin Dose 1 EA; Start 11/24/18 at 20:30 Glucose (Glutose) 15 gm Q15M PRN PO DECREASED GLUCOSE Last administered on 12/11/18 09:45; Admin Dose 15 GM; Start 11/24/18 at 20:30 Glucose (Glutose) 22.5 gm Q15M PRN PO DECREASED GLUCOSE; Start 11/24/18 at 20:30 Dextrose (D50w Syringe) 25 ml Q15M PRN IV DECREASED GLUCOSE Last administered on 11/26/18 01:40; Admin Dose 25 ML; Start 11/24/18 at 20:30 Dextrose (D50w Syringe) 50 ml Q15M PRN IV DECREASED GLUCOSE Last administered on 11/29/18 06:01; Admin Dose 50 ML; Start 11/24/18 at 20:30 Glucagon (Glucagen) 1 mg Q15M PRN IM DECREASED GLUCOSE; Start 11/24/18 at 20:30 Glucose (Glutose) 15 gm Q15M PRN BUCCAL DECREASED GLUCOSE; Start 11/24/18 at 20:30 Insulin Aspart (Novolog Insulin Pen) NOVOLOG *MILD* ALGORITHM WITH MEALS BEDTIME SC Last administered on 12/10/18 16:57; Admin Dose 1 UNIT; Start 11/28/18 at 11:30 Metoprolol Tartrate (Lopressor) 50 mg BID PO Last administered on 12/11/18 08:55; Admin Dose 50 MG; Start 11/28/18 at 21:00 Furosemide (Lasix) 40 mg BID DIURETICS IV Last administered on 12/10/18 05:26; Admin Dose 40 MG; Start 11/30/18 at 18:00; Status Hold Metolazone (Zaroxolyn) 2.5 mg DAILY PO Last administered on 12/09/18 10:29; Admin Dose 2.5 MG; Start 12/07/18 at 09:00; Status Hold Albuterol/ Ipratropium (Duoneb) 3 ml Q4H RESP THERAPY PRN HHN SHORTNESS OF BREATH Last administered on 12/08/18 11:00; Admin Dose 3 ML; Start 12/07/18 at 10:00 Alteplase, Recombinant (Cathflo (Activase)) 6 mg MAY REPEAT X1 PRN CATHETER IF CATHETER REMAINS OCCULUDED Last administered on 12/08/18 06:01; Admin Dose 6 MG; Start 12/08/18 at 05:30 Albuterol/ Ipratropium (Duoneb) 3 ml Q6H RESP THERAPY HHN Last administered on 12/11/18 02:46; Admin Dose 3 ML; Start 12/08/18 at 11:00 Azithromycin (Zithromax) 250 mg DAILY PO Last administered on 12/11/18 08:54; Admin Dose 250 MG; Start 12/10/18 at 12:30 Insulin Glargine (Lantus) 16 units DAILY@0800 SC Last administered on 12/10/18 21:32; Admin Dose 16 UNITS; Start 12/10/18 at 12:30 Insulin Aspart (Novolog Insulin Pen) 5 unit WITH MEALS SC Last administered on 12/10/18 16:55; Admin Dose 5 UNIT; Start 12/10/18 at 11:30 Hydralazine HCl (Apresoline) 25 mg Q8 PO Last administered on 12/10/18at 21:29; Admin Dose 25 MG; Start 12/10/18 at 22:00 ZACH HEALY Dec 11, 2018 11:13
[2018-12-11 14:15] VITALS: BP 108/54; PULSE 74
--- NOTE | 2018-12-11 17:19 | PN ---
Date/Time of Note Date/Time of Note DATE: 12/11/18 TIME: 17:17 Assessment/Plan VTE Prophylaxis Risk score (from Ns)>0 risk: 13 SCD applied (from Ns): Yes Pharmacological prophylaxis: heparin Lines/Catheters IV Catheter Type (from Nrsg): No IV Access Urinary Cath still in place: No Assessment/Plan Hospital Course 83 yo female with , diastolic CHF with acute respiratory failure and volume overload from CHF and BRIE. She was treated with diuretics. Her renal function deteriorated and respiratory status worsened. She was transferred to ICU and was at risk for intubation. HD was initiated and the patient's respiratory status improved markedly. Her kidney function improved and she did not require further HD. She was continued on diuretics. Respiratory status stable. Remains a bit hypervolemic. Holding HD now. Kidneys recovering. 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 She remained short of breath and we had difficulty controlling her volume status. Thoracentesis was performed yesterday with mild improvement. I recommended hospice to the patient's daughter and ROYAL young. Mansi is in agreement. No planning to dc home tomorrwo 12/12 with home hospice services Result Diagram: 12/11/18 0554 12/11/18 0554 Results 24hrs Laboratory Tests Test 12/10/18 21:26 12/11/18 05:54 12/11/18 08:45 12/11/18 09:01 Bedside Glucose 137 65 L 57 L White Blood Count 6.7 # Red Blood Count 3.44 L Hemoglobin 8.1 L Hematocrit 26.6 L Mean Corpuscular 77.3 L Volume Mean Corpuscular 23.5 L Hemoglobin Mean Corpuscular 30.5 L Hemoglobin Concent Red Cell 21.9 H Distribution Width Platelet Count 181 Mean Platelet Volume 11.8 H Immature 0.400 Granulocytes % Neutrophils % 80.8 H Lymphocytes % 11.8 L Monocytes % 6.9 Eosinophils % 0.1 Basophils % 0.0 Nucleated Red Blood 0.0 Cells % Immature 0.030 Granulocytes # Neutrophils # 5.4 Lymphocytes # 0.8 Monocytes # 0.5 Eosinophils # 0.0 Basophils # 0.0 Nucleated Red Blood 0.0 Cells # Sodium Level 143 Potassium Level 3.8 Chloride Level 96 L Carbon Dioxide Level 36 H Anion Gap 11 Blood Urea Nitrogen 93 H Creatinine 2.22 H Est Glomerular Filtrat Rate mL/min Glucose Level 82 # Calcium Level 9.3 Phosphorus Level 3.7 Magnesium Level 1.9 Test 12/11/18 09:18 12/11/18 10:03 12/11/18 10:20 12/11/18 10:37 Bedside Glucose 63 L 72 89 101 Test 12/11/18 12:07 12/11/18 17:05 Bedside Glucose 133 169 Subjective 24 Hr Interval Summary Free Text/Dictation I spoke to the patient's daughter at bedside. Explained in great detail her moms condition. Her priority is taking her mom home to be with her family but she is worried about being unable to help her fully. I suggested hospice is a good option. Mansi agreed. We will arrange for home hospice and discharge patient tomorrow hopefully Exam/Review of Systems Exam Vitals Vital Signs Date Temp Pulse Resp B/P (MAP) Pulse Ox O2 O2 Flow FiO2 Time Delivery Rate 12/11/18 98.4 74 108/54 98 Room Air 14:15 (72) 12/11/18 2.0 10:48 12/11/18 18 08:42 12/09/18 21 15:06 Intake and Output 12/10/18 12/10/18 12/11/18 1515:00 23:00 07:00 IntakeIntake Total 600 ml 300 ml OutputOutput Total 800 ml BalanceBalance -200 ml 300 ml Constitutional: alert, oriented, well developed Psych: no complaints, nl mood/affect Head: normocephalic, atraumatic Eyes: nl conjunctiva, EOMI, nl lids, nl sclera, PERRL ENMT: nl external ears & nose, nl lips & teeth, nl nasal mucosa & septum Neck: supple, non-tender Respiratory: clear to auscultation, normal air movement Cardiovascular: regular rate and rhythm, nl pulses Gastrointestinal: soft, nl liver, spleen, non-tender Musculoskeletal: nl extremities to inspection, nl gait and stance Extremities: normal pulses Neurological: CAPITAL EQUIPMENT SPECIALIST II-XII intact, nl mental status, nl speech, nl strength Skin: nl turgor; No rash or lesions Lymph: nl lymph nodes Results Results 24hrs Laboratory Tests Test 12/10/18 21:26 12/11/18 05:54 12/11/18 08:45 12/11/18 09:01 Bedside Glucose 137 65 L 57 L White Blood Count 6.7 # Red Blood Count 3.44 L Hemoglobin 8.1 L Hematocrit 26.6 L Mean Corpuscular 77.3 L Volume Mean Corpuscular 23.5 L Hemoglobin Mean Corpuscular 30.5 L Hemoglobin Concent Red Cell 21.9 H Distribution Width Platelet Count 181 Mean Platelet Volume 11.8 H Immature 0.400 Granulocytes % Neutrophils % 80.8 H Lymphocytes % 11.8 L Monocytes % 6.9 Eosinophils % 0.1 Basophils % 0.0 Nucleated Red Blood 0.0 Cells % Immature 0.030 Granulocytes # Neutrophils # 5.4 Lymphocytes # 0.8 Monocytes # 0.5 Eosinophils # 0.0 Basophils # 0.0 Nucleated Red Blood 0.0 Cells # Sodium Level 143 Potassium Level 3.8 Chloride Level 96 L Carbon Dioxide Level 36 H Anion Gap 11 Blood Urea Nitrogen 93 H Creatinine 2.22 H Est Glomerular Filtrat Rate mL/min Glucose Level 82 # Calcium Level 9.3 Phosphorus Level 3.7 Magnesium Level 1.9 Test 12/11/18 09:18 12/11/18 10:03 12/11/18 10:20 12/11/18 10:37 Bedside Glucose 63 L 72 89 101 Test 12/11/18 12:07 12/11/18 17:05 Bedside Glucose 133 169 Medications Medication Current Medications IV Flush (NS 3 ml) 3 ml PER PROTOCOL IV ; Start 11/16/18 at 19:30 Ondansetron HCl (Zofran Inj) 4 mg Q6H PRN IV NAUSEA/VOMITING; Start 11/16/18 at 19:30 Acetaminophen (Tylenol Tab) 650 mg Q6H PRN PO .PAIN 1-3 OR TEMP; Start 11/16/18 at 19:30 Acetaminophen/ Hydrocodone Bitart ([place] (5/325)) 1 tab Q6H PRN PO .MOD PAIN 4- 6 Last administered on 12/08/18at 00:32; Admin Dose 1 TAB; Start 11/16/18 at 19:30 Docusate Sodium (Colace) 100 mg Q12H PRN PO .CONSTIPATION; Start 11/16/18 at 19:30 Zolpidem Tartrate (Ambien) 5 mg QHS PRN PO .INSOMNIA Last administered on 11/22/18at 23:20; Admin Dose 5 MG; Start 11/16/18 at 19:30 Clotrimazole (Lotrimin Cr) 1 applic BID TOP Last administered on 12/11/18 08:56; Admin Dose 1 APPLIC; Start 11/16/18 at 21:00 Fluticasone/ Vilanterol (Breo Ellipta 100-25 Mcg Inh) 1 inh DAILY INH Last ad ministered on 12/11/18 08:54; Admin Dose 1 INH; Start 11/17/18 at 12:00 Metoprolol Tartrate (Lopressor) 5 mg Q4H PRN IV HR>110 Hold SBP<100; Start 11/23/18 at 13:00 IV Flush (NS 10 ml) 10 ml PRN PRN IV IV PROTOCOL; Start 11/24/18 at 16:00 Miscellaneous Information 1 ea NOTE XX Last administered on 11/29/18 12:55; Admin Dose 1 EA; Start 11/24/18 at 20:30 Glucose (Glutose) 15 gm Q15M PRN PO DECREASED GLUCOSE Last administered on 12/11/18 09:45; Admin Dose 15 GM; Start 11/24/18 at 20:30 Glucose (Glutose) 22.5 gm Q15M PRN PO DECREASED GLUCOSE; Start 11/24/18 at 20:30 Dextrose (D50w Syringe) 25 ml Q15M PRN IV DECREASED GLUCOSE Last administered on 11/26/18 01:40; Admin Dose 25 ML; Start 11/24/18 at 20:30 Dextrose (D50w Syringe) 50 ml Q15M PRN IV DECREASED GLUCOSE Last administered on 11/29/18 06:01; Admin Dose 50 ML; Start 11/24/18 at 20:30 Glucagon (Glucagen) 1 mg Q15M PRN IM DECREASED GLUCOSE; Start 11/24/18 at 20:30 Glucose (Glutose) 15 gm Q15M PRN BUCCAL DECREASED GLUCOSE; Start 11/24/18 at 20:30 Insulin Aspart (Novolog Insulin Pen) NOVOLOG *MILD* ALGORITHM WITH MEALS BEDTIME SC Last administered on 12/11/18 17:07; Admin Dose 1 UNIT; Start 11/28/18 at 11:30 Metoprolol Tartrate (Lopressor) 50 mg BID PO Last administered on 12/11/18 08:55; Admin Dose 50 MG; Start 11/28/18 at 21:00 Furosemide (Lasix) 40 mg BID DIURETICS IV Last administered on 12/10/18 05:26; Admin Dose 40 MG; Start 11/30/18 at 18:00; Status Hold Metolazone (Zaroxolyn) 2.5 mg DAILY PO Last administered on 12/09/18 10:29; Admin Dose 2.5 MG; Start 12/07/18 at 09:00; Status Hold Albuterol/ Ipratropium (Duoneb) 3 ml Q4H RESP THERAPY PRN HHN SHORTNESS OF BREATH Last administered on 12/08/18 11:00; Admin Dose 3 ML; Start 12/07/18 at 10:00 Alteplase, Recombinant (Cathflo (Activase)) 6 mg MAY REPEAT X1 PRN CATHETER IF CATHETER REMAINS OCCULUDED Last administered on 12/08/18 06:01; Admin Dose 6 MG ; Start 12/08/18 at 05:30 Albuterol/ Ipratropium (Duoneb) 3 ml Q6H RESP THERAPY HHN Last administered on 12/11/18 02:46; Admin Dose 3 ML; Start 12/08/18 at 11:00 Azithromycin (Zithromax) 250 mg DAILY PO Last administered on 12/11/18 08:54; Admin Dose 250 MG; Start 12/10/18 at 12:30 Insulin Glargine (Lantus) 16 units DAILY@0800 SC Last administered on 12/10/18 21:32; Admin Dose 16 UNITS; Start 12/10/18 at 12:30 Insulin Aspart (Novolog Insulin Pen) 5 unit WITH MEALS SC Last administered on 12/11/18 17:07; Admin Dose 5 UNIT; Start 12/10/18 at 11:30 Hydralazine HCl (Apresoline) 25 mg Q8 PO Last administered on 12/10/18 21:29; Admin Dose 25 MG; Start 12/10/18 at 22:00 HARIS GREEN MD Dec 11, 2018 17:19
--- NOTE | 2018-12-11 18:48 | CONS ---
Assessment/Plan Assessment/Plan Hospital Course (Demo Recall) IMP: 1.AF with mild RVR-rate controlled on current dose of BB 2.Renal failure 3.hyperkalemia 4.Bradycardia 5.CHF-diastolic acute on chronic EF 50% by echo this admit 6.HTN 7.-mod to severe by echo 08/09 8. Hematuria-improved 9. Platelet count improved Recc: -Tele -Now DNI -IVP PRN BB -Continue current PO BB dose -Continue PO hydralazine as tolerated with possible need to reduce dose -Heparin and asa now held in the setting of anemia and worsening thrombocytopenia and f/u HIT and platelet count -Continue abx's and f/u cx data -Follow MS -HD now held and would follow volume status closely on lasix and thus transition to PO if is going to be d/c'd Consultation Date/Type/Reason Admit Date/Time Nov 16, 2018 at 17:17 Initial Consult Date 11/20/18 Type of Consult Cardiology Reason for Consultation AF/CHF Requesting Provider: JABIER SEBASTIAN Date/Time of Note DATE: 12/11/18 TIME: 18:46 Exam/Review of Systems Vital Signs Vitals Vital Signs Date Temp Pulse Resp B/P (MAP) Pulse Ox O2 O2 Flow FiO2 Time Delivery Rate 12/11/18 2.0 18:31 12/11/18 98.4 74 108/54 98 Room Air 14:15 (72) 12/11/18 18 08:42 12/09/18 21 15:06 Intake and Output 12/10/18 12/10/18 12/11/18 1515:00 23:00 07:00 IntakeIntake Total 600 ml 300 ml OutputOutput Total 800 ml BalanceBalance -200 ml 300 ml Exam Exam Review of Systems: CONSTITUTIONAL: No fevers, chills. PULMONARY: No sob CARDIOVASCULAR: No chest pain/palpitations GASTROINTESTINAL: No nausea/vomiting. GENITOURINARY: No hematuria/dysuria. MUSCULOSKELETAL: No myagias/arthalgias. PSYCHIATRIC: The patient denies depression. NEUROLOGIC: generalized weakness Constitutional: alert Psych: no complaints Head: normocephalic ENMT: mucosa pink and moist Neck: supple, jvd (9 cm wter) Cardiovascular: regular rate and rhythm Gastrointestinal: soft, non-tender Musculoskeletal: muscle weakness (generalized) Extremities: edema (trace/B) Neurological: other (No focal deficts) Labs Result Diagram: 12/11/18 0554 12/11/18 0554 Results 24hrs Laboratory Tests Test 12/10/18 21:26 12/11/18 05:54 12/11/18 08:45 12/11/18 09:01 Bedside Glucose 137 65 L 57 L White Blood Count 6.7 # Red Blood Count 3.44 L Hemoglobin 8.1 L Hematocrit 26.6 L Mean Corpuscular 77.3 L Volume Mean Corpuscular 23.5 L Hemoglobin Mean Corpuscular 30.5 L Hemoglobin Concent Red Cell 21.9 H Distribution Width Platelet Count 181 Mean Platelet Volume 11.8 H Immature 0.400 Granulocytes % Neutrophils % 80.8 H Lymphocytes % 11.8 L Monocytes % 6.9 Eosinophils % 0.1 Basophils % 0.0 Nucleated Red Blood 0.0 Cells % Immature 0.030 Granulocytes # Neutrophils # 5.4 Lymphocytes # 0.8 Monocytes # 0.5 Eosinophils # 0.0 Basophils # 0.0 Nucleated Red Blood 0.0 Cells # Sodium Level 143 Potassium Level 3.8 Chloride Level 96 L Carbon Dioxide Level 36 H Anion Gap 11 Blood Urea Nitrogen 93 H Creatinine 2.22 H Est Glomerular Filtrat Rate mL/min Glucose Level 82 # Calcium Level 9.3 Phosphorus Level 3.7 Magnesium Level 1.9 Test 12/11/18 09:18 12/11/18 10:03 12/11/18 10:20 12/11/18 10:37 Bedside Glucose 63 L 72 89 101 Test 12/11/18 12:07 12/11/18 17:05 Bedside Glucose 133 169 Medications Medications Current Medications IV Flush (NS 3 ml) 3 ml PER PROTOCOL IV ; Start 11/16/18 at 19:30 Ondansetron HCl (Zofran Inj) 4 mg Q6H PRN IV NAUSEA/VOMITING; Start 11/16/18 at 19:30 Acetaminophen (Tylenol Tab) 650 mg Q6H PRN PO .PAIN 1-3 OR TEMP; Start 11/16/18 at 19:30 Acetaminophen/ Hydrocodone Bitart ([place] (5/325)) 1 tab Q6H PRN PO .MOD PAIN 4- 6 Last administered on 12/08/18at 00:32; Admin Dose 1 TAB; Start 11/16/18 at 19:30 Docusate Sodium (Colace) 100 mg Q12H PRN PO .CONSTIPATION; Start 11/16/18 at 19:30 Zolpidem Tartrate (Ambien) 5 mg QHS PRN PO .INSOMNIA Last administered on 11/22/18 23:20; Admin Dose 5 MG; Start 11/16/18 at 19:30 Clotrimazole (Lotrimin Cr) 1 applic BID TOP Last administered on 12/11/18 08:56; Admin Dose 1 APPLIC; Start 11/16/18 at 21:00 Fluticasone/ Vilanterol (Breo Ellipta 100-25 Mcg Inh) 1 inh DAILY INH Last administered on 12/11/18 08:54; Admin Dose 1 INH; Start 11/17/18 at 12:00 Metoprolol Tartrate (Lopressor) 5 mg Q4H PRN IV HR>110 Hold SBP<100; Start 11/23/18 at 13:00 IV Flush (NS 10 ml) 10 ml PRN PRN IV IV PROTOCOL; Start 11/24/18 at 16:00 Miscellaneous Information 1 ea NOTE XX Last administered on 11/29/18at 12:55; Admin Dose 1 EA; Start 11/24/18 at 20:30 Glucose (Glutose) 15 gm Q15M PRN PO DECREASED GLUCOSE Last administered on 12/11/18at 09:45; Admin Dose 15 GM; Start 11/24/18 at 20:30 Glucose (Glutose) 22.5 gm Q15M PRN PO DECREASED GLUCOSE; Start 11/24/18 at 20:30 Dextrose (D50w Syringe) 25 ml Q15M PRN IV DECREASED GLUCOSE Last administered on 11/26/18at 01:40; Admin Dose 25 ML; Start 11/24/18 at 20:30 Dextrose (D50w Syringe) 50 ml Q15M PRN IV DECREASED GLUCOSE Last administered on 11/29/18 06:01; Admin Dose 50 ML; Start 11/24/18 at 20:30 Glucagon (Glucagen) 1 mg Q15M PRN IM DECREASED GLUCOSE; Start 11/24/18 at 20:30 Glucose (Glutose) 15 gm Q15M PRN BUCCAL DECREASED GLUCOSE; Start 11/24/18 at 20:30 Insulin Aspart (Novolog Insulin Pen) NOVOLOG *MILD* ALGORITHM WITH MEALS BEDTIME SC Last administered on 12/11/18 17:07; Admin Dose 1 UNIT; Start 11/28/18 at 11:30 Metoprolol Tartrate (Lopressor) 50 mg BID PO Last administered on 12/11/18 08:55; Admin Dose 50 MG; Start 11/28/18 at 21:00 Furosemide (Lasix) 40 mg BID DIURETICS IV Last administered on 12/10/18 05:26; Admin Dose 40 MG; Start 11/30/18 at 18:00; Status Hold Metolazone (Zaroxolyn) 2.5 mg DAILY PO Last administered on 12/09/18 10:29; Admin Dose 2.5 MG; Start 12/07/18 at 09:00; Status Hold Albuterol/ Ipratropium (Duoneb) 3 ml Q4H RESP THERAPY PRN HHN SHORTNESS OF BREATH Last administered on 12/08/18 11:00; Admin Dose 3 ML; Start 12/07/18 at 10:00 Alteplase, Recombinant (Cathflo (Activase)) 6 mg MAY REPEAT X1 PRN CATHETER IF CATHETER REMAINS OCCULUDED Last administered on 12/08/18 06:01; Admin Dose 6 MG; Start 12/08/18 at 05:30 Albuterol/ Ipratropium (Duoneb) 3 ml Q6H RESP THERAPY HHN Last administered on 12/11/18 02:46; Admin Dose 3 ML; Start 12/08/18 at 11:00 Azithromycin (Zithromax) 250 mg DAILY PO Last administered on 12/11/18 08:54; Admin Dose 250 MG; Start 12/10/18 at 12:30 Insulin Glargine (Lantus) 16 units DAILY@0800 SC Last administered on 12/10/18 21:32; Admin Dose 16 UNITS; Start 12/10/18 at 12:30 Insulin Aspart (Novolog Insulin Pen) 5 unit WITH MEALS SC Last administered on 12/11/18 17:07; Admin Dose 5 UNIT; Start 12/10/18 at 11:30 Hydralazine HCl (Apresoline) 25 mg Q8 PO Last administered on 12/10/18 21:29; Admin Dose 25 MG; Start 12/10/18 at 22:00 GHASSAN SHERMAN 22, 2019 18:48
[2018-12-11] MEDS: ACETAMINOPHEN 325 MG TAB PO PRN ×2 (19:06→22:10)
[2018-12-11 20:08] VITALS: BP 114/56; PULSE 75; RESP 16
[2018-12-12 02:07] VITALS: BP 118/60; PULSE 108; RESP 18
[2018-12-12] MEDS: ALBUTEROL/IPRATROPIUM (NEB) 3 ML AMP HHN SCH ×4 (02:16→21:41)
[2018-12-12] MEDS: INSULIN ASPART [NOVOLOG] 3 ML PEN SC SCH ×7 (08:00→21:35)
[2018-12-12] MEDS: INSULIN GLARGINE [LANTus] (100 UNITS/ML) SYG SC SCH ×2 (08:00→08:27)
[2018-12-12 08:03] VITALS: BP 123/60; PULSE 98; RESP 18
[2018-12-12] MEDS: FLUTICASONE/VILANTEROL 100-25 INH SCH (08:28)
[2018-12-12] MEDS: METOPROLOL 50 MG TAB PO SCH ×3 (08:30→21:34)
[2018-12-12] MEDS: AZITHROMYCIN 250 MG TAB PO SCH ×2 (08:31→09:34)
[2018-12-12] MEDS: CLOTRIMAZOLE 1% 30 GM CR TOP SCH ×2 (08:31→21:00)
[2018-12-12] MEDS: BALSAM PERU/CASTOR OIL 60 GM TUBE TOP SCH ×2 (08:31→21:36)
--- NOTE | 2018-12-12 09:40 | PN ---
DATE: 12/12/2018 SUBJECTIVE: The patient continues to have audible wheezes, no other events noted. No hemoptysis, he matemesis, hematochezia. OBJECTIVE: VITAL SIGNS: Blood pressure is 123/60, pulse 98, respiration 18, temperature 97.4. HEENT: Head is normocephalic. NECK: Supple. HEART: Regular rate. LUNGS: Show diminished breath sounds at the base. ABDOMEN: Soft, nontender to palpation without rebound or guarding. EXTREMITIES: Negative for clubbing, cyanosis. Trace edema. DERMATOLOGIC: No rashes. MUSCULOSKELETAL: No joint effusion. NEUROLOGIC: No change in exam. MEDICATIONS: Reviewed. LABORATORY DATA: Currently pending. ASSESSMENT AND PLAN: 1. Nonoliguric acute kidney injury on top of chronic kidney disease with previous baseline creatinin e of 1.5 mg/dL. Etiology of BRIE is secondary to hemodynamics, cardiorenal syndrome, tubular injury. The patient is currently a dialysis. Noel catheter was removed. The patient's renal function valentino s been stable, however, a noted decline has been seen in the last 48 to 72 hours with progressive azo temia. This is likely from diuretic therapy. Diuretics have been on hold. Continue to monitor sophia l function closely. 2. Congestive heart failure exacerbation. The patient is clinically improving. Diuretics are on ho ld due to worsening renal function, progressive azotemia. Continue to monitor. 3. Anemia. Monitor hemoglobin and hematocrit levels. 4. Mineral bone disorder, monitor calcium and phosphorus levels. 5. Acute respiratory failure secondary to congestive heart failure, reactive airway disease. Contin ue medical management. Continue supplemental oxygen, continue nebulizers. 6. Atrial fibrillation. Continue current treatment plan. 7. Diabetes. Continue current insulin regimen. 8. Acute encephalopathy, etiology is toxic metabolic. 9. Alkalosis secondary to acute kidney injury, diuretic therapy and possible hypercapnia. Continue to monitor. 10. History of aortic stenosis. Dictated By: JOCELINE OLEA/MIRTA Conf#: [id number] DID#: [id number]
--- NOTE | 2018-12-12 13:44 | CONS ---
Assessment/Plan Assessment/Plan Hospital Course (Demo Recall) IMP: 1.AF with mild RVR-rate controlled on current dose of BB 2.Renal failure 3.hyperkalemia 4.Bradycardia 5.CHF-diastolic acute on chronic EF 50% by echo this admit 6.HTN 7.-mod to severe by echo 08/09 8. Hematuria-improved 9. Platelet count improved Recc: -Tele -Now DNI -IVP PRN BB -Continue current PO BB dose -Continue PO hydralazine as tolerated with possible need to reduce dose -Heparin and asa now held in the setting of anemia and worsening thrombocytopenia and f/u HIT and platelet count -Continue abx's and f/u cx data -Follow MS -HD now held and would resume lasix and follow volume status clsoely Consultation Date/Type/Reason Admit Date/Time Nov 16, 2018 at 17:17 Initial Consult Date 11/20/18 Type of Consult Cardiology Reason for Consultation AF Requesting Provider: JABIER SEBASTIAN Date/Time of Note DATE: 12/12/18 TIME: 13:42 Exam/Review of Systems Vital Signs Vitals Vital Signs Date Temp Pulse Resp B/P (MAP) Pulse Ox O2 O2 Flow FiO2 Time Delivery Rate 12/12/18 59 22 97 Nasal 3.0 08:50 Cannula 12/12/18 97.4 123/60 08:03 (81) 12/12/18 21 02:16 Intake and Output 12/11/18 12/11/18 12/12/18 1515:00 23:00 07:00 IntakeIntake Total 720 ml 100 ml 640 ml OutputOutput Total 1 ml BalanceBalance 719 ml 100 ml 640 ml Exam Exam Review of Systems: CONSTITUTIONAL: No fevers, chills. PULMONARY: No sob CARDIOVASCULAR: No chest pain/palpitations GASTROINTESTINAL: No nausea/vomiting. GENITOURINARY: No hematuria/dysuria. MUSCULOSKELETAL: No myagias/arthalgias. PSYCHIATRIC: The patient denies depression. NEUROLOGIC: No weakness Constitutional: alert Psych: no complaints Head: normocephalic ENMT: mucosa pink and moist Neck: supple, jvd (9 cm water) Respiratory: clear to auscultation Cardiovascular: regular rate and rhythm Gastrointestinal: soft, non-tender Musculoskeletal: muscle tone (normal) Extremities: pitting pedal edema (bilateral LE) Neurological: other (No focal defcits) Labs Result Diagram: 12/11/18 0554 12/11/18 0554 Results 24hrs Laboratory Tests Test 12/11/18 17:05 12/11/18 20:57 12/12/18 07:57 12/12/18 11:47 Bedside Glucose 169 150 139 204 Medications Medications Current Medications IV Flush (NS 3 ml) 3 ml PER PROTOCOL IV ; Start 11/16/18 at 19:30 Ondansetron HCl (Zofran Inj) 4 mg Q6H PRN IV NAUSEA/VOMITING; Start 11/16/18 at 19:30 Acetaminophen (Tylenol Tab) 650 mg Q6H PRN PO .PAIN 1-3 OR TEMP Last administered on 12/11/18at 19:06; Admin Dose 650 MG; Start 11/16/18 at 19:30 Acetaminophen/ Hydrocodone Bitart ([place] (5/325)) 1 tab Q6H PRN PO .MOD PAIN 4- 6 Last administered on 12/08/18at 00:32; Admin Dose 1 TAB; Start 11/16/18 at 19:30 Docusate Sodium (Colace) 100 mg Q12H PRN PO .CONSTIPATION; Start 11/16/18 at 19:30 Zolpidem Tartrate (Ambien) 5 mg QHS PRN PO .INSOMNIA Last administered on 11/22/18 23:20; Admin Dose 5 MG; Start 11/16/18 at 19:30 Clotrimazole (Lotrimin Cr) 1 applic BID TOP Last administered on 12/11/18 21:00; Admin Dose 1 APPLIC; Start 11/16/18 at 21:00 Fluticasone/ Vilanterol (Breo Ellipta 100-25 Mcg Inh) 1 inh DAILY INH Last administered on 12/12/18 08:28; Admin Dose 1 INH; Start 11/17/18 at 12:00 Metoprolol Tartrate (Lopressor) 5 mg Q4H PRN IV HR>110 Hold SBP<100; Start 11/23/18 at 13:00 IV Flush (NS 10 ml) 10 ml PRN PRN IV IV PROTOCOL; Start 11/24/18 at 16:00 Miscellaneous Information 1 ea NOTE XX Last administered on 11/29/18at 12:55; Admin Dose 1 EA; Start 11/24/18 at 20:30 Glucose (Glutose) 15 gm Q15M PRN PO DECREASED GLUCOSE Last administered on 12/11/18 09:45; Admin Dose 15 GM; Start 11/24/18 at 20:30 Glucose (Glutose) 22.5 gm Q15M PRN PO DECREASED GLUCOSE; Start 11/24/18 at 20:30 Dextrose (D50w Syringe) 25 ml Q15M PRN IV DECREASED GLUCOSE Last administered on 11/26/18 01:40; Admin Dose 25 ML; Start 11/24/18 at 20:30 Dextrose (D50w Syringe) 50 ml Q15M PRN IV DECREASED GLUCOSE Last administered on 11/29/18 06:01; Admin Dose 50 ML; Start 11/24/18 at 20:30 Glucagon (Glucagen) 1 mg Q15M PRN IM DECREASED GLUCOSE; Start 11/24/18 at 20:30 Glucose (Glutose) 15 gm Q15M PRN BUCCAL DECREASED GLUCOSE; Start 11/24/18 at 20:30 Insulin Aspart (Novolog Insulin Pen) NOVOLOG *MILD* ALGORITHM WITH MEALS BEDTIME SC Last administered on 12/12/18 11:49; Admin Dose 2 UNIT; Start 11/28/18 at 11:30 Metoprolol Tartrate (Lopressor) 50 mg BID PO Last administered on 12/12/18 09:37; Admin Dose 50 MG; Start 11/28/18 at 21:00 Furosemide (Lasix) 40 mg BID DIURETICS IV Last administered on 12/10/18 05:26; Admin Dose 40 MG; Start 11/30/18 at 18:00; Status Hold Metolazone (Zaroxolyn) 2.5 mg DAILY PO Last administered on 12/09/18 10:29; Admin Dose 2.5 MG; Start 12/07/18 at 09:00; Status Hold Albuterol/ Ipratropium (Duoneb) 3 ml Q4H RESP THERAPY PRN HHN SHORTNESS OF BREATH Last administered on 12/08/18 11:00; Admin Dose 3 ML; Start 12/07/18 at 10:00 Alteplase, Recombinant (Cathflo (Activase)) 6 mg MAY REPEAT X1 PRN CATHETER IF CATHETER REMAINS OCCULUDED Last administered on 12/08/18 06:01; Admin Dose 6 MG; Start 12/08/18 at 05:30 Albuterol/ Ipratropium (Duoneb) 3 ml Q6H RESP THERAPY HHN Last administered on 12/12/18 08:50; Admin Dose 3 ML; Start 12/08/18 at 11:00 Azithromycin (Zithromax) 250 mg DAILY PO Last administered on 12/12/18 09:34; Admin Dose 250 MG; Start 12/10/18 at 12:30 Insulin Glargine (Lantus) 16 units DAILY@0800 SC Last administered on 12/10/18 21:32; Admin Dose 16 UNITS; Start 12/10/18 at 12:30 Insulin Aspart (Novolog Insulin Pen) 5 unit WITH MEALS SC Last administered on 12/12/18 11:49; Admin Dose 5 UNIT; Start 12/10/18 at 11:30 Hydralazine HCl (Apresoline) 25 mg Q8 PO Last administered on 12/12/18 06:03; Admin Dose 25 MG; Start 12/10/18 at 22:00 GHASSAN SHERMAN 23, 2019 13:44
[2018-12-12 14:20] VITALS: BP 122/57; PULSE 91; RESP 19
--- NOTE | 2018-12-12 15:51 | CONS ---
Consult Date/Type/Reason Admit Date/Time Nov 16, 2018 at 17:17 Initial Consult Date Type of Consultation: Pulm Requesting Provider: JABIER SEBASTIAN Date/Time of Note DATE: 12/12/18 TIME: 15:47 Subjective No events overnight. Objective Vitals Vital Signs Date Temp Pulse Resp B/P (MAP) Pulse Ox O2 O2 Flow FiO2 Time Delivery Rate 12/12/18 2.0 14:02 12/12/18 62 20 96 Nasal 13:59 Cannula 12/12/18 97.4 123/60 08:03 (81) 12/12/18 21 02:16 Intake and Output 12/11/18 12/11/18 12/12/18 1414:59 22:59 06:59 IntakeIntake Total 720 ml 100 ml 640 ml OutputOutput Total 1 ml BalanceBalance 719 ml 100 ml 640 ml Exam HEENT: Neck supple; no JVD; no LAD CVS: RRR, S1 and S2 CHEST: Distant BS ABD: Soft, NT, + BS EXT: No c/c; + edema Results/Medications Result Diagram: 12/12/18 1412 12/12/18 1412 Results 24 hrs Laboratory Tests Test 12/11/18 17:05 12/11/18 20:57 12/12/18 07:57 12/12/18 11:47 Bedside Glucose 169 150 139 204 Test 12/12/18 14:12 White Blood Count 4.4 #L Red Blood Count 3.18 L Hemoglobin 7.6 L Hematocrit 24.9 L Mean Corpuscular 78.3 L Volume Mean Corpuscular 23.9 L Hemoglobin Mean Corpuscular 30.5 L Hemoglobin Concent Red Cell 21.3 H Distribution Width Platelet Count 174 Mean Platelet Volume 12.3 H Immature 0.200 Granulocytes % Neutrophils % 69.8 Lymphocytes % 18.3 Monocytes % 10.6 Eosinophils % 0.9 Basophils % 0.2 Nucleated Red Blood 0.0 Cells % Immature 0.010 Granulocytes # Neutrophils # 3.1 Lymphocytes # 0.8 Monocytes # 0.5 Eosinophils # 0.0 Basophils # 0.0 Nucleated Red Blood 0.0 Cells # Sodium Level 141 Potassium Level 3.9 Chloride Level 99 Carbon Dioxide Level 31 Anion Gap 11 Blood Urea Nitrogen 95 H Creatinine 2.17 H Est Glomerular Filtrat Rate mL/min Glucose Level 194 # Calcium Level 8.8 Phosphorus Level 3.5 Magnesium Level 2.1 Home Meds Active Scripts Furosemide* (Furosemide*) 40 Mg Tablet, 40 MG PO BID, #90 TAB 4 Refills Prov:HARIS GREEN MD 12/10/18 Clotrimazole* (Lotrimin*) 1%-30 Gm Cream..g., 1 APPLIC TOP BID, #1 TUB Please apply to the right lower extremity wound twice daily. Prov:DAVID RAUSCH NP 08/09/18 Insulin Glargine,Hum.rec.anlog (Basaglar Kwikpen U-100) 100 Unit/1 Ml Insuln.p en, 5 UNIT SC DAILY for 30 Days, #1 EA Prov:RAMIRO MORRIS MD 04/05/18 Linagliptin (TRADJENTA) 5 Mg Tablet, 5 MG PO DAILY for 30 Days, #30 TAB Prov:RAMIRO MORRIS MD 04/05/18 Insulin Aspart* (Novolog Insulin Pen*) 100 Unit/Ml Soln, 10 UNIT SC WITH LUNCH for 30 Days, #1 EA Prov:RAMIRO MORRIS MD 04/05/18 Insulin Aspart* (Novolog Insulin Pen*) 100 Unit/Ml Soln, 10 UNIT SC WITH DINNER for 30 Days, #1 EA Prov:RAMIRO MORRIS MD 04/05/18 Insulin Aspart* (Novolog Insulin Pen*) 100 Unit/Ml Soln, 6 UNIT SC WITH BREAKFAS T for 30 Days, #1 EA Prov:RAMIRO MORRIS MD 04/05/18 Fluticasone-Vilanterol (Breo Ellipta Inhaler) 100-25 Mcg/Actuation Aer.pow.ba, 1 INH INH DAILY for 30 Days, #1 EA Prov:RAMIRO MORRIS MD 04/05/18 Aspirin (Aspirin) 81 Mg Chew, 81 MG PO DAILY for 30 Days, #30 TAB Prov:RAMIRO MORRIS MD 04/05/18 Metoprolol Tartrate* (Lopressor*) 25 Mg Tab, 75 MG PO BID for 30 Days, #60 TAB Prov:RAMIRO MORRIS MD 04/05/18 Tiotropium Shell* (Spiriva*) 18 Mcg Cap.w.dev, 1 INH INH DAILY for 30 Days, #30 CAP Prov:RAMIRO MORRIS MD 04/05/18 Psyllium Husk (Metamucil) 0.52 Gm Capsule, 0.52 GM PO DAILY for 30 Days, #30 CAP Prov:RAMIRO MORRIS MD 04/19/17 Reported Medications Albuterol Sulfate* (Proair HFA*) 8.5 Gm Hfa.aer.ad, 2 PUFF INH Q6H PRN for WHEEZING AND SOB, INH 03/16/15 Omeprazole* (Omeprazole*) 20 Mg Capsule.dr, 20 MG PO DAILY, CAP 03/16/15 Discontinued Scripts Hydralazine Hcl* (Apresoline*) 50 Mg Tab, 50 MG PO Q8 for 30 Days, #90 TAB Prov:RAMIRO MORRIS MD 04/05/18 Diltiazem Hcl* (Cardizem CD*) 120 Mg Cap.sr.24h, 120 MG PO BID for 30 Days, #60 TAB Prov:RAMIRO MORRIS MD 04/05/18 Apixaban* (Eliquis*) 5 Mg Tablet, 2.5 MG PO BID for 30 Days, #60 TAB Prov:RAMIRO MORRIS MD 04/05/18 Digoxin* (Digitek*) 0.125 Mg Tab, 0.125 MG PO DAILY@13, #30 3 Refills Prov:DALLAS PICKETT 03/22/15 Medications Current Medications IV Flush (NS 3 ml) 3 ml PER PROTOCOL IV ; Start 11/16/18 at 19:30 Ondansetron HCl (Zofran Inj) 4 mg Q6H PRN IV NAUSEA/VOMITING; Start 11/16/18 at 19:30 Acetaminophen (Tylenol Tab) 650 mg Q6H PRN PO .PAIN 1-3 OR TEMP Last administered on 12/11/18at 19:06; Admin Dose 650 MG; Start 11/16/18 at 19:30 Acetaminophen/ Hydrocodone Bitart ([place] (5/325)) 1 tab Q6H PRN PO .MOD PAIN 4- 6 Last administered on 12/08/18at 00:32; Admin Dose 1 TAB; Start 11/16/18 at 19:30 Docusate Sodium (Colace) 100 mg Q12H PRN PO .CONSTIPATION; Start 11/16/18 at 19:30 Zolpidem Tartrate (Ambien) 5 mg QHS PRN PO .INSOMNIA Last administered on 11/22/18 23:20; Admin Dose 5 MG; Start 11/16/18 at 19:30 Clotrimazole (Lotrimin Cr) 1 applic BID TOP Last administered on 12/11/18 21:00; Admin Dose 1 APPLIC; Start 11/16/18 at 21:00 Fluticasone/ Vilanterol (Breo Ellipta 100-25 Mcg Inh) 1 inh DAILY INH Last administered on 12/12/18 08:28; Admin Dose 1 INH; Start 11/17/18 at 12:00 Metoprolol Tartrate (Lopressor) 5 mg Q4H PRN IV HR>110 Hold SBP<100; Start 11/23/18 at 13:00 IV Flush (NS 10 ml) 10 ml PRN PRN IV IV PROTOCOL; Start 11/24/18 at 16:00 Miscellaneous Information 1 ea NOTE XX Last administered on 11/29/18 12:55; Admin Dose 1 EA; Start 11/24/18 at 20:30 Glucose (Glutose) 15 gm Q15M PRN PO DECREASED GLUCOSE Last administered on 12/11/18 09:45; Admin Dose 15 GM; Start 11/24/18 at 20:30 Glucose (Glutose) 22.5 gm Q15M PRN PO DECREASED GLUCOSE; Start 11/24/18 at 20:30 Dextrose (D50w Syringe) 25 ml Q15M PRN IV DECREASED GLUCOSE Last administered on 11/26/18 01:40; Admin Dose 25 ML; Start 11/24/18 at 20:30 Dextrose (D50w Syringe) 50 ml Q15M PRN IV DECREASED GLUCOSE Last administered on 11/29/18 06:01; Admin Dose 50 ML; Start 11/24/18 at 20:30 Glucagon (Glucagen) 1 mg Q15M PRN IM DECREASED GLUCOSE; Start 11/24/18 at 20:30 Glucose (Glutose) 15 gm Q15M PRN BUCCAL DECREASED GLUCOSE; Start 11/24/18 at 20:30 Insulin Aspart (Novolog Insulin Pen) NOVOLOG *MILD* ALGORITHM WITH MEALS BEDTIME SC Last administered on 12/12/18 11:49; Admin Dose 2 UNIT; Start 11/28/18 at 11:30 Metoprolol Tartrate (Lopressor) 50 mg BID PO Last administered on 12/12/18 09:37; Admin Dose 50 MG; Start 11/28/18 at 21:00 Furosemide (Lasix) 40 mg BID DIURETICS IV Last administered on 12/10/18 05:26; Admin Dose 40 MG; Start 11/30/18 at 18:00; Status Hold Metolazone (Zaroxolyn) 2.5 mg DAILY PO Last administered on 12/09/18 10:29; Admin Dose 2.5 MG; Start 12/07/18 at 09:00; Status Hold Albuterol/ Ipratropium (Duoneb) 3 ml Q4H RESP THERAPY PRN HHN SHORTNESS OF BREATH Last administered on 12/08/18 11:00; Admin Dose 3 ML; Start 12/07/18 at 10:00 Alteplase, Recombinant (Cathflo (Activase)) 6 mg MAY REPEAT X1 PRN CATHETER IF CATHETER REMAINS OCCULUDED Last administered on 12/08/18 06:01; Admin Dose 6 MG; Start 12/08/18 at 05:30 Albuterol/ Ipratropium (Duoneb) 3 ml Q6H RESP THERAPY HHN Last administered on 12/12/18 13:59; Admin Dose 3 ML; Start 12/08/18 at 11:00 Azithromycin (Zithromax) 250 mg DAILY PO Last administered on 12/12/18 09:34; Admin Dose 250 MG; Start 12/10/18 at 12:30 Insulin Glargine (Lantus) 16 units DAILY@0800 SC Last administered on 12/10/18 21:32; Admin Dose 16 UNITS; Start 12/10/18 at 12:30 Insulin Aspart (Novolog Insulin Pen) 5 unit WITH MEALS SC Last administered on 12/12/18 11:49; Admin Dose 5 UNIT; Start 12/10/18 at 11:30 Hydralazine HCl (Apresoline) 25 mg Q8 PO Last administered on 12/12/18 06:03; Admin Dose 25 MG; Start 12/10/18 at 22:00 Assessment/Plan Assessment/Plan (Daily) IMP: 1. Status post acute hypoxemic respiratory failure secondary to volume overload/COPD exacerbation 2. Acute renal failure now hemodialysis dependent 3. History of pulmonary embolus on Eliquis 4. Congestive cardiac failure with aortic stenosis 5. Encephalopathy toxic metabolic now resolving RECS: 1. Continue hemodialysis per nephrology 2. Monitor H&H 3. Aspiration precautions 4. Wound care 5. To home hospice soon ISAEL MANTILLA MD Dec 12, 2018 15:51
--- NOTE | 2018-12-12 16:13 | PN ---
Date/Time of Note Date/Time of Note DATE: 12/12/18 TIME: 16:13 Assessment/Plan VTE Prophylaxis Risk score (from Ns)>0 risk: 6 SCD applied (from Ns): Yes Pharmacological prophylaxis: heparin Lines/Catheters IV Catheter Type (from [facility]): no IV access, MD aware Urinary Cath still in place: No Assessment/Plan Hospital Course 83 yo female with , diastolic CHF with acute respiratory failure and volume overload from CHF and BRIE. She was treated with diuretics. Her renal function deteriorated and respiratory status worsened. She was transferred to ICU and was at risk for intubation. HD was initiated and the patient's respiratory status improved markedly. Her kidney function improved and she did not require further HD. She was continued on diuretics. Respiratory status stable. Remains a bit hypervolemic. Holding HD now. Kidneys recovering. 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 She remained short of breath and we had difficulty controlling her volume status. Thoracentesis was performed yesterday with mild improvement. I recommended hospice to the patient's daughter and ROYAL young. Mansi is in agreement. No planning to dc home tomorrwo 12/12 with home hospice services - Continue diuretics - Home with hospice as soon as arrangemebnts can be finalized Result Diagram: 12/12/18 1412 12/12/18 1412 Results 24hrs Laboratory Tests Test 12/11/18 17:05 12/11/18 20:57 12/12/18 07:57 12/12/18 11:47 Bedside Glucose 169 150 139 204 Test 12/12/18 14:12 White Blood Count 4.4 #L Red Blood Count 3.18 L Hemoglobin 7.6 L Hematocrit 24.9 L Mean Corpuscular 78.3 L Volume Mean Corpuscular 23.9 L Hemoglobin Mean Corpuscular 30.5 L Hemoglobin Concent Red Cell 21.3 H Distribution Width Platelet Count 174 Mean Platelet Volume 12.3 H Immature 0.200 Granulocytes % Neutrophils % 69.8 Lymphocytes % 18.3 Monocytes % 10.6 Eosinophils % 0.9 Basophils % 0.2 Nucleated Red Blood 0.0 Cells % Immature 0.010 Granulocytes # Neutrophils # 3.1 Lymphocytes # 0.8 Monocytes # 0.5 Eosinophils # 0.0 Basophils # 0.0 Nucleated Red Blood 0.0 Cells # Sodium Level 141 Potassium Level 3.9 Chloride Level 99 Carbon Dioxide Level 31 Anion Gap 11 Blood Urea Nitrogen 95 H Creatinine 2.17 H Est Glomerular Filtrat Rate mL/min Glucose Level 194 # Calcium Level 8.8 Phosphorus Level 3.5 Magnesium Level 2.1 Subjective 24 Hr Interval Summary Free Text/Dictation Awaiting hospice arrangements Patient quite anxious about returning home, doesn't feel well Exam/Review of Systems Exam Vitals Vital Signs Date Temp Pulse Resp B/P (MAP) Pulse Ox O2 O2 Flow FiO2 Time Delivery Rate 12/12/18 98.3 91 19 122/57 99 Nasal 14:20 (78) Cannula 12/12/18 2.0 14:02 12/12/18 21 02:16 Intake and Output 12/11/18 12/11/18 12/12/18 1515:00 23:00 07:00 IntakeIntake Total 720 ml 100 ml 640 ml OutputOutput Total 1 ml BalanceBalance 719 ml 100 ml 640 ml Constitutional: alert, oriented, well developed Psych: no complaints, nl mood/affect Head: normocephalic, atraumatic Eyes: nl conjunctiva, EOMI, nl lids, nl sclera, PERRL ENMT: nl external ears & nose, nl lips & teeth, nl nasal mucosa & septum Neck: supple, non-tender Respiratory: clear to auscultation, normal air movement Cardiovascular: regular rate and rhythm, nl pulses Gastrointestinal: soft, nl liver, spleen, non-tender Musculoskeletal: nl extremities to inspection, nl gait and stance Extremities: normal pulses Neurological: 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, nl mental status, nl speech, nl strength Skin: nl turgor; No rash or lesions Lymph: nl lymph nodes Results Results 24hrs Laboratory Tests Test 12/11/18 17:05 12/11/18 20:57 12/12/18 07:57 12/12/18 11:47 Bedside Glucose 169 150 139 204 Test 12/12/18 14:12 White Blood Count 4.4 #L Red Blood Count 3.18 L Hemoglobin 7.6 L Hematocrit 24.9 L Mean Corpuscular 78.3 L Volume Mean Corpuscular 23.9 L Hemoglobin Mean Corpuscular 30.5 L Hemoglobin Concent Red Cell 21.3 H Distribution Width Platelet Count 174 Mean Platelet Volume 12.3 H Immature 0.200 Granulocytes % Neutrophils % 69.8 Lymphocytes % 18.3 Monocytes % 10.6 Eosinophils % 0.9 Basophils % 0.2 Nucleated Red Blood 0.0 Cells % Immature 0.010 Granulocytes # Neutrophils # 3.1 Lymphocytes # 0.8 Monocytes # 0.5 Eosinophils # 0.0 Basophils # 0.0 Nucleated Red Blood 0.0 Cells # Sodium Level 141 Potassium Level 3.9 Chloride Level 99 Carbon Dioxide Level 31 Anion Gap 11 Blood Urea Nitrogen 95 H Creatinine 2.17 H Est Glomerular Filtrat Rate mL/min Glucose Level 194 # Calcium Level 8.8 Phosphorus Level 3.5 Magnesium Level 2.1 Medications Medication Current Medications IV Flush (NS 3 ml) 3 ml PER PROTOCOL IV ; Start 11/16/18 at 19:30 Ondansetron HCl (Zofran Inj) 4 mg Q6H PRN IV NAUSEA/VOMITING; Start 11/16/18 at 19:30 Acetaminophen (Tylenol Tab) 650 mg Q6H PRN PO .PAIN 1-3 OR TEMP Last administered on 12/11/18at 19:06; Admin Dose 650 MG; Start 11/16/18 at 19:30 Acetaminophen/ Hydrocodone Bitart ([place] (5/325)) 1 tab Q6H PRN PO .MOD PAIN 4- 6 Last administered on 12/08/18at 00:32; Admin Dose 1 TAB; Start 11/16/18 at 19:30 Docusate Sodium (Colace) 100 mg Q12H PRN PO .CONSTIPATION; Start 11/16/18 at 19:30 Zolpidem Tartrate (Ambien) 5 mg QHS PRN PO .INSOMNIA Last administered on 11/22/18 23:20; Admin Dose 5 MG; Start 11/16/18 at 19:30 Clotrimazole (Lotrimin Cr) 1 applic BID TOP Last administered on 12/11/18at 21:00; Admin Dose 1 APPLIC; Start 11/16/18 at 21:00 Fluticasone/ Vilanterol (Breo Ellipta 100-25 Mcg Inh) 1 inh DAILY INH Last administered on 12/12/18at 08:28; Admin Dose 1 INH; Start 11/17/18 at 12:00 Metoprolol Tartrate (Lopressor) 5 mg Q4H PRN IV HR>110 Hold SBP<100; Start 11/23/18 at 13:00 IV Flush (NS 10 ml) 10 ml PRN PRN IV IV PROTOCOL; Start 11/24/18 at 16:00 Miscellaneous Information 1 ea NOTE XX Last administered on 11/29/18 12:55; Admin Dose 1 EA; Start 11/24/18 at 20:30 Glucose (Glutose) 15 gm Q15M PRN PO DECREASED GLUCOSE Last administered on 12/11/18 09:45; Admin Dose 15 GM; Start 11/24/18 at 20:30 Glucose (Glutose) 22.5 gm Q15M PRN PO DECREASED GLUCOSE; Start 11/24/18 at 20:30 Dextrose (D50w Syringe) 25 ml Q15M PRN IV DECREASED GLUCOSE Last administered on 11/26/18 01:40; Admin Dose 25 ML; Start 11/24/18 at 20:30 Dextrose (D50w Syringe) 50 ml Q15M PRN IV DECREASED GLUCOSE Last administered on 11/29/18 06:01; Admin Dose 50 ML; Start 11/24/18 at 20:30 Glucagon (Glucagen) 1 mg Q15M PRN IM DECREASED GLUCOSE; Start 11/24/18 at 20:30 Glucose (Glutose) 15 gm Q15M PRN BUCCAL DECREASED GLUCOSE; Start 11/24/18 at 20:30 Insulin Aspart (Novolog Insulin Pen) NOVOLOG *MILD* ALGORITHM WITH MEALS BEDTI ME SC Last administered on 12/12/18 11:49; Admin Dose 2 UNIT; Start 11/28/18 at 11:30 Metoprolol Tartrate (Lopressor) 50 mg BID PO Last administered on 12/12/18 09:37; Admin Dose 50 MG; Start 11/28/18 at 21:00 Furosemide (Lasix) 40 mg BID DIURETICS IV Last administered on 12/10/18 05:26; Admin Dose 40 MG; Start 11/30/18 at 18:00; Status Hold Metolazone (Zaroxolyn) 2.5 mg DAILY PO Last administered on 12/09/18 10:29; Admin Dose 2.5 MG; Start 12/07/18 at 09:00; Status Hold Albuterol/ Ipratropium (Duoneb) 3 ml Q4H RESP THERAPY PRN HHN SHORTNESS OF BREATH Last administered on 12/08/18 11:00; Admin Dose 3 ML; Start 12/07/18 at 10:00 Alteplase, Recombinant (Cathflo (Activase)) 6 mg MAY REPEAT X1 PRN CATHETER IF CATHETER REMAINS OCCULUDED Last administered on 12/08/18 06:01; Admin Dose 6 MG; Start 12/08/18 at 05:30 Albuterol/ Ipratropium (Duoneb) 3 ml Q6H RESP THERAPY HHN Last administered on 12/12/18 13:59; Admin Dose 3 ML; Start 12/08/18 at 11:00 Azithromycin (Zithromax) 250 mg DAILY PO Last administered on 12/12/18 09:34; Admin Dose 250 MG; Start 12/10/18 at 12:30 Insulin Glargine (Lantus) 16 units DAILY@0800 SC Last administered on 12/10/18 21:32; Admin Dose 16 UNITS; Start 12/10/18 at 12:30 Insulin Aspart (Novolog Insulin Pen) 5 unit WITH MEALS SC Last administered on 12/12/18 11:49; Admin Dose 5 UNIT; Start 12/10/18 at 11:30 Hydralazine HCl (Apresoline) 25 mg Q8 PO Last administered on 12/12/18 06:03; Admin Dose 25 MG; Start 12/10/18 at 22:00 HARIS GREEN MD Dec 12, 2018 16:13
[2018-12-12 20:48] VITALS: BP 127/57; PULSE 98; RESP 18
[2018-12-13] MEDS: ALBUTEROL/IPRATROPIUM (NEB) 3 ML AMP HHN SCH ×4 (01:21→19:38)
[2018-12-13 02:58] VITALS: BP 117/58; PULSE 90; RESP 16
[2018-12-13 05:26] VITALS: BP 125/71; PULSE 96
[2018-12-13 08:34] VITALS: BP 123/64; PULSE 90; RESP 17
[2018-12-13] MEDS: INSULIN ASPART [NOVOLOG] 3 ML PEN SC SCH ×7 (08:55→21:00)
[2018-12-13] MEDS: INSULIN GLARGINE [LANTus] (100 UNITS/ML) SYG SC SCH (08:56)
[2018-12-13] MEDS: FLUTICASONE/VILANTEROL 100-25 INH SCH (08:57)
[2018-12-13] MEDS: AZITHROMYCIN 250 MG TAB PO SCH (08:58)
[2018-12-13] MEDS: METOPROLOL 50 MG TAB PO SCH ×2 (08:58→21:09)
[2018-12-13] MEDS: CLOTRIMAZOLE 1% 30 GM CR TOP SCH ×2 (08:59→21:00)
[2018-12-13] MEDS: BALSAM PERU/CASTOR OIL 60 GM TUBE TOP SCH ×2 (08:59→21:00)
--- NOTE | 2018-12-13 10:58 | PN ---
DATE: 12/13/2018 SUBJECTIVE: The patient continues to have shortness of breath. No other events noted. OBJECTIVE: VITAL SIGNS: Blood pressure is 123/64, pulse 90, temperature 97.9. HEENT: Head is normocephalic. NECK: Supple. HEART: Regular rate. LUNGS: Show diminished breath sounds at the base. ABDOMEN: Soft, nontender to palpation. No rebound or guarding. EXTREMITIES: Negative for clubbing, cyanosis. No edema. DERMATOLOGIC: No rashes. MUSCULOSKELETAL: No joint effusion. NEUROLOGIC: No change in exam. MEDICATIONS: Reviewed. LABORATORY DATA: From 12/12/2018 was reviewed. ASSESSMENT AND PLAN: 1. Nonoliguric acute kidney injury on top of chronic kidney disease, stage IV, with a previous basel ine creatinine around 1.5 mg/dL. Etiology of acute kidney injury was secondary to hemodynamics, card iorenal syndrome, tubular injury. The patient is status post hemodialysis. Noel catheter has bee n removed. Dialysis has been held. The patient's creatinine has been overall stable. However, the patient has a significant azotemia due to cardiorenal pathophysiology. Diuretic therapy has been on hold for the last 2 days. Plan is to follow up renal panel. If azotemia stabilizes, we will resume diuretic therapy, monitor closely. 2. Congestive heart failure exacerbation. The patient is clinically improving. Diuretic therapy on hold due to worsening renal function, progressive azotemia. Continue to monitor. 3. Anemia. Monitor hemoglobin and hematocrit levels. 4. Mineral bone disorder. Monitor calcium and phosphatase levels. 5. Acute respiratory failure secondary to congestive heart failure, reactive airway disease. Contin ue medical management. Continue supplemental oxygen. Continue nebulizers. 6. Atrial fibrillation. Continue current treatment plan. 7. Diabetes. Continue current insulin regimen. 8. Acute encephalopathy. Etiology is toxic metabolic. 9. Alkalosis secondary to acute kidney injury, diuretic therapy hypercapnia. Continue to monitor. 10. Aortic stenosis. Dictated By: JOCELINE MCCALLUM DO NR/NTS Conf#: [id number] DID#: [id number] CC: JABIER SEBASTIAN MD;*EndCC*
--- NOTE | 2018-12-13 13:29 | CONS ---
Assessment/Plan Assessment/Plan Hospital Course (Demo Recall) IMP: 1.AF with mild RVR-rate controlled on current dose of BB 2.Renal failure 3.hyperkalemia 4.Bradycardia 5.CHF-diastolic acute on chronic EF 50% by echo this admit 6.HTN 7.-mod to severe by echo 08/09 8. Hematuria-improved 9. Platelet count improved Recc: -Tele -Now DNI -IVP PRN BB -Continue current PO BB dose and hydralazine -Continue PO hydralazine as tolerated with possible need to reduce dose -Heparin and asa now held in the setting of anemia and worsening thrombocytopenia and f/u HIT and platelet count -Continue abx's and f/u cx data -Follow MS -HD now held and resumed on lasix -Will follow volume status clsoely Consultation Date/Type/Reason Admit Date/Time Nov 16, 2018 at 17:17 Initial Consult Date 11/20/18 Type of Consult Cardiology Reason for Consultation AF Requesting Provider: JABIER SEBASTIAN Date/Time of Note DATE: 12/13/18 TIME: 13:27 Exam/Review of Systems Vital Signs Vitals Vital Signs Date Temp Pulse Resp B/P (MAP) Pulse Ox O2 O2 Flow FiO2 Time Delivery Rate 12/13/18 78 18 95 Nasal 2.0 13:21 Cannula 12/13/18 97.9 123/64 08:34 (83) 12/12/18 21 02:16 Intake and Output 12/12/18 12/12/18 12/13/18 1515:00 23:00 07:00 IntakeIntake Total 240 ml 900 ml 1200 ml BalanceBalance 240 ml 900 ml 1200 ml Exam Exam Review of Systems: CONSTITUTIONAL: No fevers, chills. PULMONARY: No sob CARDIOVASCULAR: No chest pain/palpitations GASTROINTESTINAL: No nausea/vomiting. GENITOURINARY: No hematuria/dysuria. MUSCULOSKELETAL: No myagias/arthalgias. PSYCHIATRIC: The patient denies depression. NEUROLOGIC: No weakness Constitutional: alert Psych: no complaints Head: normocephalic ENMT: mucosa pink and moist Neck: supple, jvd (9 cm water) Respiratory: diminished breath sounds (at bases/B) Cardiovascular: regular rate and rhythm Gastrointestinal: soft, non-tender Musculoskeletal: muscle weakness (mild generalized) Extremities: edema (none) Neurological: other (No focal deficits) Labs Result Diagram: 12/12/18 1412 12/12/18 1412 Results 24hrs Laboratory Tests Test 12/12/18 14:12 12/12/18 16:32 12/12/18 21:32 12/13/18 01:43 White Blood Count 4.4 #L Red Blood Count 3.18 L Hemoglobin 7.6 L Hematocrit 24.9 L Mean Corpuscular 78.3 L Volume Mean Corpuscular 23.9 L Hemoglobin Mean Corpuscular 30.5 L Hemoglobin Concent Red Cell 21.3 H Distribution Width Platelet Count 174 Mean Platelet Volume 12.3 H Immature 0.200 Granulocytes % Neutrophils % 69.8 Lymphocytes % 18.3 Monocytes % 10.6 Eosinophils % 0.9 Basophils % 0.2 Nucleated Red Blood 0.0 Cells % Immature 0.010 Granulocytes # Neutrophils # 3.1 Lymphocytes # 0.8 Monocytes # 0.5 Eosinophils # 0.0 Basophils # 0.0 Nucleated Red Blood 0.0 Cells # Sodium Level 141 Potassium Level 3.9 Chloride Level 99 Carbon Dioxide Level 31 Anion Gap 11 Blood Urea Nitrogen 95 H Creatinine 2.17 H Est Glomerular Filtrat Rate mL/min Glucose Level 194 # Calcium Level 8.8 Phosphorus Level 3.5 Magnesium Level 2.1 Bedside Glucose 248 H 304 H 246 H Test 12/13/18 08:00 12/13/18 11:57 Bedside Glucose 196 122 Medications Medications Current Medications IV Flush (NS 3 ml) 3 ml PER PROTOCOL IV ; Start 11/16/18 at 19:30 Ondansetron HCl (Zofran Inj) 4 mg Q6H PRN IV NAUSEA/VOMITING; Start 11/16/18 at 19:30 Acetaminophen (Tylenol Tab) 650 mg Q6H PRN PO .PAIN 1-3 OR TEMP Last administered on 12/11/18at 19:06; Admin Dose 650 MG; Start 11/16/18 at 19:30 Acetaminophen/ Hydrocodone Bitart ([place] (5/325)) 1 tab Q6H PRN PO .MOD PAIN 4- 6 Last administered on 12/08/18at 00:32; Admin Dose 1 TAB; Start 11/16/18 at 19:30 Docusate Sodium (Colace) 100 mg Q12H PRN PO .CONSTIPATION; Start 11/16/18 at 19:30 Zolpidem Tartrate (Ambien) 5 mg QHS PRN PO .INSOMNIA Last administered on 11/22/18 23:20; Admin Dose 5 MG; Start 11/16/18 at 19:30 Clotrimazole (Lotrimin Cr) 1 applic BID TOP Last administered on 12/13/18 08:59; Admin Dose 1 APPLIC; Start 11/16/18 at 21:00 Fluticasone/ Vilanterol (Breo Ellipta 100-25 Mcg Inh) 1 inh DAILY INH Last administered on 12/13/18 08:57; Admin Dose 1 INH; Start 11/17/18 at 12:00 Metoprolol Tartrate (Lopressor) 5 mg Q4H PRN IV HR>110 Hold SBP<100; Start 11/23/18 at 13:00 IV Flush (NS 10 ml) 10 ml PRN PRN IV IV PROTOCOL; Start 11/24/18 at 16:00 Miscellaneous Information 1 ea NOTE XX Last administered on 11/29/18at 12:55; Admin Dose 1 EA; Start 11/24/18 at 20:30 Glucose (Glutose) 15 gm Q15M PRN PO DECREASED GLUCOSE Last administered on 12/11/18at 09:45; Admin Dose 15 GM; Start 11/24/18 at 20:30 Glucose (Glutose) 22.5 gm Q15M PRN PO DECREASED GLUCOSE; Start 11/24/18 at 20:30 Dextrose (D50w Syringe) 25 ml Q15M PRN IV DECREASED GLUCOSE Last administered on 11/26/18at 01:40; Admin Dose 25 ML; Start 11/24/18 at 20:30 Dextrose (D50w Syringe) 50 ml Q15M PRN IV DECREASED GLUCOSE Last administered on 11/29/18at 06:01; Admin Dose 50 ML; Start 11/24/18 at 20:30 Glucagon (Glucagen) 1 mg Q15M PRN IM DECREASED GLUCOSE; Start 11/24/18 at 20:30 Glucose (Glutose) 15 gm Q15M PRN BUCCAL DECREASED GLUCOSE; Start 11/24/18 at 20:30 Insulin Aspart (Novolog Insulin Pen) NOVOLOG *MILD* ALGORITHM WITH MEALS BEDTIME SC Last administered on 12/13/18 08:56; Admin Dose 2 UNIT; Start 11/28/18 at 11:30 Metoprolol Tartrate (Lopressor) 50 mg BID PO Last administered on 12/13/18 08:58; Admin Dose 50 MG; Start 11/28/18 at 21:00 Furosemide (Lasix) 40 mg BID DIURETICS IV Last administered on 12/10/18 0 5:26; Admin Dose 40 MG; Start 11/30/18 at 18:00 Metolazone (Zaroxolyn) 2.5 mg DAILY PO Last administered on 12/09/18 10:29; Admin Dose 2.5 MG; Start 12/07/18 at 09:00 Albuterol/ Ipratropium (Duoneb) 3 ml Q4H RESP THERAPY PRN HHN SHORTNESS OF BREATH Last administered on 12/08/18 11:00; Admin Dose 3 ML; Start 12/07/18 at 10:00 Alteplase, Recombinant (Cathflo (Activase)) 6 mg MAY REPEAT X1 PRN CATHETER IF CATHETER REMAINS OCCULUDED Last administered on 12/08/18 06:01; Admin Dose 6 MG; Start 12/08/18 at 05:30 Albuterol/ Ipratropium (Duoneb) 3 ml Q6H RESP THERAPY HHN Last administered on 12/13/18 13:21; Admin Dose 3 ML; Start 12/08/18 at 11:00 Azithromycin (Zithromax) 250 mg DAILY PO Last administered on 12/13/18 08:58; Admin Dose 250 MG; Start 12/10/18 at 12:30 Insulin Glargine (Lantus) 16 units DAILY@0800 SC Last administered on 12/13/18 08:56; Admin Dose 16 UNITS; Start 12/10/18 at 12:30 Insulin Aspart (Novolog Insulin Pen) 5 unit WITH MEALS SC Last administered on 12/13/18 12:05; Admin Dose 5 UNIT; Start 12/10/18 at 11:30 Hydralazine HCl (Apresoline) 25 mg Q8 PO Last administered on 12/13/18 05:24; Admin Dose 25 MG; Start 12/10/18 at 22:00 GHASSAN SHERMAN 24, 2019 13:29
[2018-12-13 14:18] VITALS: BP 110/55; PULSE 92; RESP 18
--- NOTE | 2018-12-13 14:20 | CONS ---
Consult Date/Type/Reason Admit Date/Time Nov 16, 2018 at 17:17 Initial Consult Date Type of Consultation: Pulm Requesting Provider: JABIER SEBASTIAN Date/Time of Note DATE: 12/13/18 TIME: 14:19 Subjective No events overnight. Objective Vitals Vital Signs Date Temp Pulse Resp B/P (MAP) Pulse Ox O2 O2 Flow FiO2 Time Delivery Rate 12/13/18 78 18 95 Nasal 2.0 13:21 Cannula 12/13/18 97.9 123/64 08:34 (83) 12/12/18 21 02:16 Intake and Output 12/12/18 12/12/18 12/13/18 1515:00 23:00 07:00 IntakeIntake Total 240 ml 900 ml 1200 ml BalanceBalance 240 ml 900 ml 1200 ml Exam HEENT: Neck supple; no JVD; no LAD CVS: RRR, S1 and S2 CHEST: Distant BS ABD: Soft, NT, + BS EXT: No c/c; + edema Results/Medications Result Diagram: 12/12/18 1412 12/12/18 1412 Results 24 hrs Laboratory Tests Test 12/12/18 16:32 12/12/18 21:32 12/13/18 01:43 12/13/18 08:00 Bedside Glucose 248 H 304 H 246 H 196 Test 12/13/18 11:57 Bedside Glucose 122 Home Meds Active Scripts Furosemide* (Furosemide*) 40 Mg Tablet, 40 MG PO BID, #90 TAB 4 Refills Prov:HARIS GREEN MD 12/10/18 Clotrimazole* (Lotrimin*) 1%-30 Gm Cream..g., 1 APPLIC TOP BID, #1 TUB Please apply to the right lower extremity wound twice daily. Prov:DAVID RAUSCH NP 08/09/18 Insulin Glargine,Hum.rec.anlog (Basaglar Kwikpen U-100) 100 Unit/1 Ml Insuln.pen, 5 UNIT SC DAILY for 30 Days, #1 EA Prov:RAMIRO MORRIS MD 04/05/18 Linagliptin (TRADJENTA) 5 Mg Tablet, 5 MG PO DAILY for 30 Days, #30 TAB Prov:RAMIRO MORRIS MD 04/05/18 Insulin Aspart* (Novolog Insulin Pen*) 100 Unit/Ml Soln, 10 UNIT SC WITH LUNCH for 30 Days, #1 EA Prov:RAMIRO MORRIS MD 04/05/18 Insulin Aspart* (Novolog Insulin Pen*) 100 Unit/Ml Soln, 10 UNIT SC WITH DINNER for 30 Days, #1 EA Prov:RAMIRO MORRIS MD 04/05/18 Insulin Aspart* (Novolog Insulin Pen*) 100 Unit/Ml Soln, 6 UNIT SC WITH BREAKFAST for 30 Days, #1 EA Prov:RAMIRO MORRIS MD 04/05/18 Fluticasone-Vilanterol (Breo Ellipta Inhaler) 100-25 Mcg/Actuation Aer.pow.ba, 1 INH INH DAILY for 30 Days, #1 EA Prov:RAMIRO MORRIS MD 04/05/18 Aspirin (Aspirin) 81 Mg Chew, 81 MG PO DAILY for 30 Days, #30 TAB Prov:RAMIRO MORRIS MD 04/05/18 Metoprolol Tartrate* (Lopressor*) 25 Mg Tab, 75 MG PO BID for 30 Days, #60 TAB Prov:RAMIRO MORRIS MD 04/05/18 Tiotropium [place]* (Spiriva*) 18 Mcg Cap.w.dev, 1 INH INH DAILY for 30 Days, #30 CAP Prov:RAMIRO MORRIS MD 04/05/18 Psyllium Husk (Metamucil) 0.52 Gm Capsule, 0.52 GM PO DAILY for 30 Days, #30 CAP Prov:RAMIRO MORRIS MD 04/19/17 Reported Medications Albuterol Sulfate* (Proair HFA*) 8.5 Gm Hfa.aer.ad, 2 PUFF INH Q6H PRN for WHEEZING AND SOB, INH 03/16/15 Omeprazole* (Omeprazole*) 20 Mg Capsule.dr, 20 MG PO DAILY, CAP 03/16/15 Discontinued Scripts Hydralazine Hcl* (Apresoline*) 50 Mg Tab, 50 MG PO Q8 for 30 Days, #90 TAB Prov:RAMIRO MORRIS MD 04/05/18 Diltiazem Hcl* (Cardizem CD*) 120 Mg Cap.sr.24h, 120 MG PO BID for 30 Days, #60 TAB Prov:RAMIRO MORRIS MD 04/05/18 Apixaban* (Eliquis*) 5 Mg Tablet, 2.5 MG PO BID for 30 Days, #60 TAB Prov:RAMIRO MORRIS MD 04/05/18 Digoxin* (Digitek*) 0.125 Mg Tab, 0.125 MG PO DAILY@13, #30 3 Refills Prov:NIEVESDALLAS 03/22/15 Medications Current Medications IV Flush (NS 3 ml) 3 ml PER PROTOCOL IV ; Start 11/16/18 at 19:30 Ondansetron HCl (Zofran Inj) 4 mg Q6H PRN IV NAUSEA/VOMITING; Start 11/16/18 at 19:30 Acetaminophen (Tylenol Tab) 650 mg Q6H PRN PO .PAIN 1-3 OR TEMP Last administered on 12/11/18 19:06; Admin Dose 650 MG; Start 11/16/18 at 19:30 Acetaminophen/ Hydrocodone Bitart ([place] (5/325)) 1 tab Q6H PRN PO .MOD PAIN 4- 6 Last administered on 12/08/18 00:32; Admin Dose 1 TAB; Start 11/16/18 at 19:30 Docusate Sodium (Colace) 100 mg Q12H PRN PO .CONSTIPATION; Start 11/16/18 at 19:30 Zolpidem Tartrate (Ambien) 5 mg QHS PRN PO .INSOMNIA Last administered on 11/22/18 23:20; Admin Dose 5 MG; Start 11/16/18 at 19:30 Clotrimazole (Lotrimin Cr) 1 applic BID TOP Last administered on 12/13/18 08:59; Admin Dose 1 APPLIC; Start 11/16/18 at 21:00 Fluticasone/ Vilanterol (Breo Ellipta 100-25 Mcg Inh) 1 inh DAILY INH Last administered on 12/13/18 08:57; Admin Dose 1 INH; Start 11/17/18 at 12:00 Metoprolol Tartrate (Lopressor) 5 mg Q4H PRN IV HR>110 Hold SBP<100; Start 11/23/18 at 13:00 IV Flush (NS 10 ml) 10 ml PRN PRN IV IV PROTOCOL; Start 11/24/18 at 16:00 Miscellaneous Information 1 ea NOTE XX Last administered on 11/29/18at 12:55; Admin Dose 1 EA; Start 11/24/18 at 20:30 Glucose (Glutose) 15 gm Q15M PRN PO DECREASED GLUCOSE Last administered on 12/11/18 09:45; Admin Dose 15 GM; Start 11/24/18 at 20:30 Glucose (Glutose) 22.5 gm Q15M PRN PO DECREASED GLUCOSE; Start 11/24/18 at 20:30 Dextrose (D50w Syringe) 25 ml Q15M PRN IV DECREASED GLUCOSE Last administered on 11/26/18 01:40; Admin Dose 25 ML; Start 11/24/18 at 20:30 Dextrose (D50w Syringe) 50 ml Q15M PRN IV DECREASED GLUCOSE Last administered on 11/29/18 06:01; Admin Dose 50 ML; Start 11/24/18 at 20:30 Glucagon (Glucagen) 1 mg Q15M PRN IM DECREASED GLUCOSE; Start 11/24/18 at 20:30 Glucose (Glutose) 15 gm Q15M PRN BUCCAL DECREASED GLUCOSE; Start 11/24/18 at 20:30 Insulin Aspart (Novolog Insulin Pen) NOVOLOG *MILD* ALGORITHM WITH MEALS BEDTIME SC Last administered on 12/13/18 08:56; Admin Dose 2 UNIT; Start 11/28/18 at 11:30 Metoprolol Tartrate (Lopressor) 50 mg BID PO Last administered on 12/13/18 08:58; Admin Dose 50 MG; Start 11/28/18 at 21:00 Furosemide (Lasix) 40 mg BID DIURETICS IV Last administered on 12/10/18 05:26; Admin Dose 40 MG; Start 11/30/18 at 18:00 Metolazone (Zaroxolyn) 2.5 mg DAILY PO Last administered on 12/09/18 10:29; Admin Dose 2.5 MG; Start 12/07/18 at 09:00 Albuterol/ Ipratropium (Duoneb) 3 ml Q4H RESP THERAPY PRN HHN SHORTNESS OF BREATH Last administered on 12/08/18 11:00; Admin Dose 3 ML; Start 12/07/18 at 10:00 Alteplase, Recombinant (Cathflo (Activase)) 6 mg MAY REPEAT X1 PRN CATHETER IF CATHETER REMAINS OCCULUDED Last administered on 12/08/18 06:01; Admin Dose 6 MG; Start 12/08/18 at 05:30 Albuterol/ Ipratropium (Duoneb) 3 ml Q6H RESP THERAPY HHN Last administered on 12/13/18 13:21; Admin Dose 3 ML; Start 12/08/18 at 11:00 Azithromycin (Zithromax) 250 mg DAILY PO Last administered on 12/13/18 08:58; Admin Dose 250 MG; Start 12/10/18 at 12:30 Insulin Glargine (Lantus) 16 units DAILY@0800 SC Last administered on 12/13/18 08:56; Admin Dose 16 UNITS; Start 12/10/18 at 12:30 Insulin Aspart (Novolog Insulin Pen) 5 unit WITH MEALS SC Last administered on 12/13/18 12:05; Admin Dose 5 UNIT; Start 12/10/18 at 11:30 Hydralazine HCl (Apresoline) 25 mg Q8 PO Last administered on 12/13/18 05:24; Admin Dose 25 MG; Start 12/10/18 at 22:00 Assessment/Plan Assessment/Plan (Daily) IMP: 1. Status post acute hypoxemic respiratory failure secondary to volume overload /COPD exacerbation 2. Acute renal failure now hemodialysis dependent 3. History of pulmonary embolus on Eliquis 4. Congestive cardiac failure with aortic stenosis 5. Encephalopathy toxic metabolic now resolving 6. Anemia RECS: 1. Continue hemodialysis per nephrology 2. Monitor H&H 3. Aspiration precautions 4. Wound care 5. To home hospice soon ISAEL MANTILLA MD Dec 13, 2018 14:20
--- NOTE | 2018-12-13 14:51 | PN ---
Date/Time of Note Date/Time of Note DATE: 12/13/18 TIME: 14:50 Assessment/Plan VTE Prophylaxis Risk score (from Ns)>0 risk: 10 SCD applied (from Ns): Yes Pharmacological prophylaxis: heparin Lines/Catheters IV Catheter Type (from Nrs): no Iv access MD aware Urinary Cath still in place: No Assessment/Plan Hospital Course 83 yo female with , diastolic CHF with acute respiratory failure and volume overload from CHF and BRIE. She was treated with diuretics. Her renal function deteriorated and respiratory status worsened. She was transferred to ICU and was at risk for intubation. HD was initiated and the patient's respiratory status improved markedly. Her kidney function improved and she did not require further HD. She was continued on diuretics. Respiratory status stable. Remains a bit hypervolemic. Holding HD now. Kidneys recovering. 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 She remained short of breath and we had difficulty controlling her volume status. Thoracentesis was performed yesterday with mild improvement. I recommended hospice to the patient's daughter and ROYAL young. Mansi is in agreement. No planning to dc home tomorrwo 12/12 with home hospice services - Resume diuretics - Home with hospice as soon as arrangements can be finalized, though it is not clear to me whether she and daughter will change their mind Result Diagram: 12/12/18 1412 12/12/18 1412 Results 24hrs Laboratory Tests Test 12/12/18 16:32 12/12/18 21:32 12/13/18 01:43 12/13/18 08:00 Bedside Glucose 248 H 304 H 246 H 196 Test 12/13/18 11:57 Bedside Glucose 122 Subjective 24 Hr Interval Summary Free Text/Dictation Patient upset about our discussion regarding hospice Physically she feels well Exam/Review of Systems Exam Vitals Vital Signs Date Temp Pulse Resp B/P (MAP) Pulse Ox O2 O2 Flow FiO2 Time Delivery Rate 12/13/18 97.4 92 18 110/55 100 Room Air 2.0 14:18 (73) 12/12/18 21 02:16 Intake and Output 12/12/18 12/12/18 12/13/18 1414:59 22:59 06:59 IntakeIntake Total 240 ml 800 ml 1300 ml BalanceBalance 240 ml 800 ml 1300 ml Constitutional: alert, oriented, well developed Psych: no complaints, nl mood/affect Head: normocephalic, atraumatic Eyes: nl conjunctiva, EOMI, nl lids, nl sclera, PERRL ENMT: nl external ears & nose, nl lips & teeth, nl nasal mucosa & septum Neck: supple, non-tender Respiratory: clear to auscultation, normal air movement Cardiovascular: regular rate and rhythm, nl pulses Gastrointestinal: soft, nl liver, spleen, non-tender Musculoskeletal: nl extremities to inspection, nl gait and stance Extremities: normal pulses Neurological: MEDICAL LIAISON II-XII intact, nl mental status, nl speech, nl strength Skin: nl turgor; No rash or lesions Lymph: nl lymph nodes Results Results 24hrs Laboratory Tests Test 12/12/18 16:32 12/12/18 21:32 12/13/18 01:43 12/13/18 08:00 Bedside Glucose 248 H 304 H 246 H 196 Test 12/13/18 11:57 Bedside Glucose 122 Medications Medication Current Medications IV Flush (NS 3 ml) 3 ml PER PROTOCOL IV ; Start 11/16/18 at 19:30 Ondansetron HCl (Zofran Inj) 4 mg Q6H PRN IV NAUSEA/VOMITING; Start 11/16/18 at 19:30 Acetaminophen (Tylenol Tab) 650 mg Q6H PRN PO .PAIN 1-3 OR TEMP Last administered on 12/11/18at 19:06; Admin Dose 650 MG; Start 11/16/18 at 19:30 Acetaminophen/ Hydrocodone Bitart ([place] (5/325)) 1 tab Q6H PRN PO .MOD PAIN 4- 6 Last administered on 12/08/18at 00:32; Admin Dose 1 TAB; Start 11/16/18 at 19:30 Docusate Sodium (Colace) 100 mg Q12H PRN PO .CONSTIPATION; Start 11/16/18 at 19:30 Zolpidem Tartrate (Ambien) 5 mg QHS PRN PO .INSOMNIA Last administered on 11/22/18 23:20; Admin Dose 5 MG; Start 11/16/18 at 19:30 Clotrimazole (Lotrimin Cr) 1 applic BID TOP Last administered on 12/13/18at 08:59; Admin Dose 1 APPLIC; Start 11/16/18 at 21:00 Fluticasone/ Vilanterol (Breo Ellipta 100-25 Mcg Inh) 1 inh DAILY INH Last administered on 12/13/18 08:57; Admin Dose 1 INH; Start 11/17/18 at 12:00 Metoprolol Tartrate (Lopressor) 5 mg Q4H PRN IV HR>110 Hold SBP<100; Start 11/23/18 at 13:00 IV Flush (NS 10 ml) 10 ml PRN PRN IV IV PROTOCOL; Start 11/24/18 at 16:00 Miscellaneous Information 1 ea NOTE XX Last administered on 11/29/18at 12:55; Admin Dose 1 EA; Start 11/24/18 at 20:30 Glucose (Glutose) 15 gm Q15M PRN PO DECREASED GLUCOSE Last administered on 12/11/18 09:45; Admin Dose 15 GM; Start 11/24/18 at 20:30 Glucose (Glutose) 22.5 gm Q15M PRN PO DECREASED GLUCOSE; Start 11/24/18 at 20:30 Dextrose (D50w Syringe) 25 ml Q15M PRN IV DECREASED GLUCOSE Last administered on 11/26/18at 01:40; Admin Dose 25 ML; Start 11/24/18 at 20:30 Dextrose (D50w Syringe) 50 ml Q15M PRN IV DECREASED GLUCOSE Last administered on 11/29/18 06:01; Admin Dose 50 ML; Start 11/24/18 at 20:30 Glucagon (Glucagen) 1 mg Q15M PRN IM DECREASED GLUCOSE; Start 11/24/18 at 20:30 Glucose (Glutose) 15 gm Q15M PRN BUCCAL DECREASED GLUCOSE; Start 11/24/18 at 20:30 Insulin Aspart (Novolog Insulin Pen) NOVOLOG *MILD* ALGORITHM WITH MEALS BEDTIME SC Last administered on 12/13/18 08:56; Admin Dose 2 UNIT; Start 11/28/18 at 11:30 Metoprolol Tartrate (Lopressor) 50 mg BID PO Last administered on 12/13/18 08:58; Admin Dose 50 MG; Start 11/28/18 at 21:00 Furosemide (Lasix) 40 mg BID DIURETICS IV Last administered on 12/10/18 05:26; Admin Dose 40 MG; Start 11/30/18 at 18:00 Metolazone (Zaroxolyn) 2.5 mg DAILY PO Last administered on 12/09/18 10:29; Admin Dose 2.5 MG; Start 12/07/18 at 09:00 Albuterol/ Ipratropium (Duoneb) 3 ml Q4H RESP THERAPY PRN HHN SHORTNESS OF BREATH Last administered on 12/08/18 11:00; Admin Dose 3 ML; Start 12/07/18 at 10:00 Alteplase, Recombinant (Cathflo (Activase)) 6 mg MAY REPEAT X1 PRN CATHETER IF CATHETER REMAINS OCCULUDED Last administered on 12/08/18 06:01; Admin Dose 6 MG; Start 12/08/18 at 05:30 Albuterol/ Ipratropium (Duoneb) 3 ml Q6H RESP THERAPY HHN Last administered on 12/13/18 13:21; Admin Dose 3 ML; Start 12/08/18 at 11:00 Azithromycin (Zithromax) 250 mg DAILY PO Last administered on 12/13/18 08:58; Admin Dose 250 MG; Start 12/10/18 at 12:30 Insulin Glargine (Lantus) 16 units DAILY@0800 SC Last administered on 12/13/18 08:56; Admin Dose 16 UNITS; Start 12/10/18 at 12:30 Insulin Aspart (Novolog Insulin Pen) 5 unit WITH MEALS SC Last administered on 12/13/18 12:05; Admin Dose 5 UNIT; Start 12/10/18 at 11:30 Hydralazine HCl (Apresoline) 25 mg Q8 PO Last administered on 12/13/18 05:24; Admin Dose 25 MG; Start 12/10/18 at 22:00 HARIS GREEN MD Dec 13, 2018 14:51
[2018-12-13 17:38] VITALS: BP 117/57; PULSE 81; RESP 18
[2018-12-13] MEDS: FUROSEMIDE 40 MG INJ IV SCH (17:38)
[2018-12-13] MEDS: FUROSEMIDE 40 MG TAB PO SCH (18:43)
[2018-12-13 20:00] VITALS: BP 116/58; PULSE 103; RESP 18
[2018-12-13] MEDS: ZOLPIDEM 5 MG TAB PO PRN (21:09)
[2018-12-14] MEDS: ALBUTEROL/IPRATROPIUM (NEB) 3 ML AMP HHN SCH ×4 (01:49→20:00)
[2018-12-14 02:00] VITALS: BP 130/76; PULSE 84; RESP 18
[2018-12-14] MEDS: FUROSEMIDE 40 MG TAB PO SCH ×2 (05:27→17:40)
[2018-12-14 05:31] VITALS: BP 128/67; PULSE 91
[2018-12-14 08:00] VITALS: BP 124/59; PULSE 84; RESP 20
[2018-12-14] MEDS: INSULIN ASPART [NOVOLOG] 3 ML PEN SC SCH ×6 (08:00→17:42)
--- NOTE | 2018-12-14 09:13 | PN ---
DATE: 12/14/2018 SUBJECTIVE: The patient is stable. No events overnight. OBJECTIVE: VITAL SIGNS: Blood pressure is 124/59, respirations 20, pulse 84, temperature 97.6. HEENT: Head is normocephalic. NECK: Supple. HEART: Regular rate. LUNGS: Show diminished breath sounds at the base. ABDOMEN: Soft, nontender to palpation without rebound or guarding. EXTREMITIES: Negative for clubbing, cyanosis, no edema. DERMATOLOGIC: No rashes. MUSCULOSKELETAL: No joint effusion. NEUROLOGIC: No change in exam. MEDICATIONS: The patient's medications have been reviewed. LABORATORY DATA: Laboratory data for 12/13/2018 was reviewed. ASSESSMENT AND PLAN: 1. Nonoliguric acute kidney injury on top of chronic kidney disease stage IV with previous baseline creatinine around 1.5 mg/dL. Etiology of acute kidney injury is secondary to hemodynamics, cardioren al syndrome, tubular injury. The patient is status post hemodialysis. Noel catheter has been rem pooja. The patient's renal function has shown recovery. There has been significant azotemia which is likely due to cardiorenal pathophysiology. The patient's diuretic therapy has been removed. Will c ontinue to monitor closely. Continue supportive care, renally dose all meds. 2. Congestive heart failure exacerbation. The patient is clinically improving. Continue to monitor . Continue diuretic therapy. 3. Anemia. Monitor hemoglobin and hematocrit levels. 4. Mineral bone disorder. Monitor calcium and phosphorus levels. 5. Acute respiratory failure secondary to congestive heart failure, reactive airway disease. Contin ue supplemental oxygen, continue nebulizers. 6. Atrial fibrillation. Continue current treatment plan. 7. Diabetes. Continue current insulin regimen. 8. Acute encephalopathy, etiology is toxic metabolic. 9. Severe aortic stenosis. Dictated By: JOCELINE MCCALLUM DO NR/NTS Conf#: [id number] DID#: [id number] CC: JABIER SEBASTIAN MD; HARIS GREEN MD;*End*
[2018-12-14] MEDS: AZITHROMYCIN 250 MG TAB PO SCH (09:40)
[2018-12-14] MEDS: FLUTICASONE/VILANTEROL 100-25 INH SCH (09:40)
[2018-12-14] MEDS: METOLAZONE 2.5 MG TAB PO SCH (09:40)
[2018-12-14] MEDS: METOPROLOL 50 MG TAB PO SCH (09:41)
[2018-12-14] MEDS: INSULIN GLARGINE [LANTus] (100 UNITS/ML) SYG SC SCH (09:43)
--- NOTE | 2018-12-14 11:29 | CONS ---
Assessment/Plan Assessment/Plan Assessment/Plan (Daily) Assessment and recommendations; 1. Patient initially admitted with bilateral lower extremity cellulitis with development of acute renal failure with massive anasarca, patient status post hemodialysis with stable renal function now. 2. Exacerbation of COPD in hospital with significant interval improvement as well. 3. Chronic atrial fibrillation. 4. Underlying COPD. 5. Diabetes and hypertension. 6. Aortic stenosis. Continue current supportive care. Patient responding well to current treatment regimen. Consider discharge to senior living. Consultation Date/Type/Reason Admit Date/Time Nov 16, 2018 at 17:17 Initial Consult Date Type of Consult Pulmonary/critical care Patient's condition has taken a turn for the worse with altered mental status. Patient now has been transferred to ICU. Hemodialysis will be started shortly. Patient appears confused. But is hemodynamically stable. General exam; elderly woman, awake, agitated off and on. Requesting Provider: JABIER SEBASTIAN Date/Time of Note DATE: 12/14/18 TIME: 11:27 24 HR Interval Summary Free Text/Dictation Patient's condition is significantly improved to the point where she denies having any further shortness of breath. Denies any coughing, wheezing. General exam; elderly lady, awake alert, laying comfortably in bed. Currently in no distress. Exam/Review of Systems Exam Vitals Vital Signs Date Temp Pulse Resp B/P (MAP) Pulse Ox O2 O2 Flow FiO2 Time Delivery Rate 12/14/18 88 18 99 Nasal 2.0 08:38 Cannula 12/14/18 97.6 124/59 08:00 (80) 12/12/18 21 02:16 Intake and Output 12/13/18 12/13/18 12/14/18 1414:59 22:59 06:59 IntakeIntake Total 440 ml 240 ml 100 ml OutputOutput Total 250 ml BalanceBalance 190 ml 240 ml 100 ml Exam H EENT exam; supple neck, positive JVD. Patient is edentulous. No neck masses. Chest exam; clear to auscultation. S1-S2 audible, no murmurs. Irregular rhythm. Abdomen exam; soft, nontender. No organomegaly. Bowel sounds audible. Extremity exam; no peripheral edema. NEON PUMPER exam; no focal deficit. Results Result Diagram: 12/13/18 1453 12/13/18 1453 Results 24hrs Laboratory Tests Test 12/13/18 11:57 12/13/18 14:53 12/13/18 17:14 12/13/18 21:06 Bedside Glucose 122 110 89 White Blood Count 4.9 Red Blood Count 3.29 L Hemoglobin 7.9 L Hematocrit 25.7 L Mean Corpuscular 78.1 L Volume Mean Corpuscular 24.0 L Hemoglobin Mean Corpuscular 30.7 L Hemoglobin Concent Red Cell 21.5 H Distribution Width Platelet Count 172 Mean Platelet Volume 11.5 H Immature 0.400 Granulocytes % Neutrophils % 68.6 Lymphocytes % 18.5 Monocytes % 10.7 Eosinophils % 1.6 Basophils % 0.2 Nucleated Red Blood 0.0 Cells % Immature 0.020 Granulocytes # Neutrophils # 3.3 Lymphocytes # 0.9 Monocytes # 0.5 Eosinophils # 0.1 Basophils # 0.0 Nucleated Red Blood 0.0 Cells # Sodium Level 142 Potassium Level 3.9 Chloride Level 98 Carbon Dioxide Level 36 H Anion Gap 8 Blood Urea Nitrogen 88 H Creatinine 2.04 H Est Glomerular Filtrat Rate mL/min Glucose Level 95 # Calcium Level 9.0 Phosphorus Level 3.3 Magnesium Level 2.1 Test 12/14/18 08:09 12/14/18 09:39 Bedside Glucose 138 138 Medications Medication Current Medications IV Flush (NS 3 ml) 3 ml PER PROTOCOL IV ; Start 11/16/18 at 19:30 Ondansetron HCl (Zofran Inj) 4 mg Q6H PRN IV NAUSEA/VOMITING; Start 11/16/18 at 19:30 Acetaminophen (Tylenol Tab) 650 mg Q6H PRN PO .PAIN 1-3 OR TEMP Last administered on 12/11/18at 19:06; Admin Dose 650 MG; Start 11/16/18 at 19:30 Acetaminophen/ Hydrocodone Bitart ([place] (5/325)) 1 tab Q6H PRN PO .MOD PAIN 4- 6 Last administered on 12/08/18at 00:32; Admin Dose 1 TAB; Start 11/16/18 at 19:30 Docusate Sodium (Colace) 100 mg Q12H PRN PO .CONSTIPATION; Start 11/16/18 at 19:30 Zolpidem Tartrate (Ambien) 5 mg QHS PRN PO .INSOMNIA Last administered on 12/13/18at 21:09; Admin Dose 5 MG; Start 11/16/18 at 19:30 Clotrimazole (Lotrimin Cr) 1 applic BID TOP Last administered on 12/13/18 08:59; Admin Dose 1 APPLIC; Start 11/16/18 at 21:00 Fluticasone/ Vilanterol (Breo Ellipta 100-25 Mcg Inh) 1 inh DAILY INH Last administered on 12/14/18 09:40; Admin Dose 1 INH; Start 11/17/18 at 12:00 Metoprolol Tartrate (Lopressor) 5 mg Q4H PRN IV HR>110 Hold SBP<100; Start 11/23/18 at 13:00 IV Flush (NS 10 ml) 10 ml PRN PRN IV IV PROTOCOL; Start 11/24/18 at 16:00 Miscellaneous Information 1 ea NOTE XX Last administered on 11/29/18at 12:55; Admin Dose 1 EA; Start 11/24/18 at 20:30 Glucose (Glutose) 15 gm Q15M PRN PO DECREASED GLUCOSE Last administered on 12/11/18at 09:45; Admin Dose 15 GM; Start 11/24/18 at 20:30 Glucose (Glutose) 22.5 gm Q15M PRN PO DECREASED GLUCOSE; Start 11/24/18 at 20:30 Dextrose (D50w Syringe) 25 ml Q15M PRN IV DECREASED GLUCOSE Last administered on 11/26/18 01:40; Admin Dose 25 ML; Start 11/24/18 at 20:30 Dextrose (D50w Syringe) 50 ml Q15M PRN IV DECREASED GLUCOSE Last administered on 11/29/18 06:01; Admin Dose 50 ML; Start 11/24/18 at 20:30 Glucagon (Glucagen) 1 mg Q15M PRN IM DECREASED GLUCOSE; Start 11/24/18 at 20:30 Glucose (Glutose) 15 gm Q15M PRN BUCCAL DECREASED GLUCOSE; Start 11/24/18 at 20:30 Insulin Aspart (Novolog Insulin Pen) NOVOLOG *MILD* ALGORITHM WITH MEALS BEDTIME SC Last administered on 12/13/18 08:56; Admin Dose 2 UNIT; Start 11/28/18 at 11:30 Metoprolol Tartrate (Lopressor) 50 mg BID PO Last administered on 12/14/18 09:41; Admin Dose 50 MG; Start 11/28/18 at 21:00 Metolazone (Zaroxolyn) 2.5 mg DAILY PO Last administered on 12/14/18 09:40; Admin Dose 2.5 MG; Start 12/07/18 at 09:00 Albuterol/ Ipratropium (Duoneb) 3 ml Q4H RESP THERAPY PRN HHN SHORTNESS OF BREATH Last administered on 12/08/18 11:00; Admin Dose 3 ML; Start 12/07/18 at 10:00 Alteplase, Recombinant (Cathflo (Activase)) 6 mg MAY REPEAT X1 PRN CATHETER IF CATHETER REMAINS OCCULUDED Last administered on 12/08/18 06:01; Admin Dose 6 MG; Start 12/08/18 at 05:30 Albuterol/ Ipratropium (Duoneb) 3 ml Q6H RESP THERAPY HHN Last administered on 12/14/18 08:35; Admin Dose 3 ML; Start 12/08/18 at 11:00 Azithromycin (Zithromax) 250 mg DAILY PO Last administered on 12/14/18 09:40; Admin Dose 250 MG; Start 12/10/18 at 12:30 Insulin Glargine (Lantus) 16 units DAILY@0800 SC Last administered on 12/14/18 09:43; Admin Dose 16 UNITS; Start 12/10/18 at 12:30 Insulin Aspart (Novolog Insulin Pen) 5 unit WITH MEALS SC Last administered on 12/14/18 09:42; Admin Dose 5 UNIT; Start 12/10/18 at 11:30 Hydralazine HCl (Apresoline) 25 mg Q8 PO Last administered on 12/14/18 05:27; Admin Dose 25 MG; Start 12/10/18 at 22:00 Furosemide (Lasix) 40 mg BID DIURETICS PO Last administered on 12/14/18 05:27; Admin Dose 40 MG; Start 12/13/18 at 18:00 ZACH HEALY Dec 14, 2018 11:29
[2018-12-14] MEDS: CLOTRIMAZOLE 1% 30 GM CR TOP SCH (13:55)
[2018-12-14] MEDS: BALSAM PERU/CASTOR OIL 60 GM TUBE TOP SCH (13:55)
--- NOTE | 2018-12-14 18:38 | CONS ---
Assessment/Plan Assessment/Plan Hospital Course (Demo Recall) IMP: 1.AF with mild RVR-rate controlled on current dose of BB 2.Renal failure 3.hyperkalemia 4.Bradycardia 5.CHF-diastolic acute on chronic EF 50% by echo this admit 6.HTN 7.-mod to severe by echo 08/09 8. Hematuria-improved 9. Platelet count improved 10. anemia Recc: -Tele -Now DNI -IVP PRN BB -Continue current PO BB dose and hydralazine -Continue PO hydralazine as tolerated with possible need to reduce dose -Continue abx's and f/u cx data -Follow MS -HD now held and resumed on lasix 40 po bid -Will follow volume status clsoely -will resume asa as tolerated given now improved platelet count for AF. Not on systemic anticoag secondary to anemia and prior hematuria during this admission Consultation Date/Type/Reason Admit Date/Time Nov 16, 2018 at 17:17 Initial Consult Date 11/20/18 Type of Consult Cardiology Reason for Consultation CHF Requesting Provider: JABIER SEBASTIAN Date/Time of Note DATE: 12/14/18 TIME: 18:35 Exam/Review of Systems Vital Signs Vitals Vital Signs Date Temp Pulse Resp B/P (MAP) Pulse Ox O2 O2 Flow FiO2 Time Delivery Rate 12/14/18 89 24 98 Nasal 2.0 13:47 Cannula 12/14/18 97.6 124/59 08:00 (80) 12/12/18 21 02:16 Intake and Output 12/13/18 12/13/18 12/14/18 1515:00 23:00 07:00 IntakeIntake Total 440 ml 340 ml OutputOutput Total 250 ml BalanceBalance 190 ml 340 ml Exam Exam Review of Systems: CONSTITUTIONAL: No fevers, chills. PULMONARY: No sob CARDIOVASCULAR: No chest pain/palpitations GASTROINTESTINAL: No nausea/vomiting. GENITOURINARY: No hematuria/dysuria. MUSCULOSKELETAL: No myagias/arthalgias. PSYCHIATRIC: The patient denies depression. NEUROLOGIC: generalized weakness Constitutional: alert Psych: no complaints Head: normocephalic ENMT: mucosa pink and moist Neck: supple, jvd (9 cm water) Respiratory: diminished breath sounds Cardiovascular: regular rate and rhythm Gastrointestinal: soft, non-tender Musculoskeletal: muscle weakness (mild generalized) Extremities: edema (trace/B) Neurological: other (No focal deficits) Labs Result Diagram: 12/14/18 1330 12/14/18 1330 Results 24hrs Laboratory Tests Test 12/13/18 21:06 12/14/18 08:09 12/14/18 09:39 12/14/18 12:23 Bedside Glucose 89 138 138 106 Test 12/14/18 13:30 12/14/18 17:37 White Blood Count 4.7 L Red Blood Count 3.55 L Hemoglobin 8.3 L Hematocrit 27.5 L Mean Corpuscular 77.5 L Volume Mean Corpuscular 23.4 L Hemoglobin Mean Corpuscular 30.2 L Hemoglobin Concent Red Cell 21.4 H Distribution Width Platelet Count 154 Mean Platelet Volume 10.8 H Immature 0.400 Granulocytes % Neutrophils % 65.9 Lymphocytes % 21.9 Monocytes % 9.5 Eosinophils % 2.1 Basophils % 0.2 Nucleated Red Blood 0.0 Cells % Immature 0.020 Granulocytes # Neutrophils # 3.1 Lymphocytes # 1.0 Monocytes # 0.5 Eosinophils # 0.1 Basophils # 0.0 Nucleated Red Blood 0.0 Cells # Sodium Level 142 Potassium Level 3.9 Chloride Level 99 Carbon Dioxide Level 34 H Anion Gap 9 Blood Urea Nitrogen 96 H Creatinine 1.98 H Est Glomerular Filtrat Rate mL/min Glucose Level 56 #L Calcium Level 9.3 Phosphorus Level 3.6 Magnesium Level 2.2 Bedside Glucose 108 Medications Medications Current Medications IV Flush (NS 3 ml) 3 ml PER PROTOCOL IV ; Start 11/16/18 at 19:30 Ondansetron HCl (Zofran Inj) 4 mg Q6H PRN IV NAUSEA/VOMITING; Start 11/16/18 at 19:30 Acetaminophen (Tylenol Tab) 650 mg Q6H PRN PO .PAIN 1-3 OR TEMP Last administered on 12/11/18at 19:06; Admin Dose 650 MG; Start 11/16/18 at 19:30 Acetaminophen/ Hydrocodone Bitart ([place] (5/325)) 1 tab Q6H PRN PO .MOD PAIN 4- 6 Last administered on 12/08/18at 00:32; Admin Dose 1 TAB; Start 11/16/18 at 19:30 Docusate Sodium (Colace) 100 mg Q12H PRN PO .CONSTIPATION; Start 11/16/18 at 19:30 Zolpidem Tartrate (Ambien) 5 mg QHS PRN PO .INSOMNIA Last administered on 12/13/18 21:09; Admin Dose 5 MG; Start 11/16/18 at 19:30 Clotrimazole (Lotrimin Cr) 1 applic BID TOP Last administered on 12/14/18 13:55; Admin Dose 1 APPLIC; Start 11/16/18 at 21:00 Fluticasone/ Vilanterol (Breo Ellipta 100-25 Mcg Inh) 1 inh DAILY INH Last administered on 12/14/18 09:40; Admin Dose 1 INH; Start 11/17/18 at 12:00 Metoprolol Tartrate (Lopressor) 5 mg Q4H PRN IV HR>110 Hold SBP<100; Start 11/23/18 at 13:00 IV Flush (NS 10 ml) 10 ml PRN PRN IV IV PROTOCOL; Start 11/24/18 at 16:00 Miscellaneous Information 1 ea NOTE XX Last administered on 11/29/18at 12:55; Admin Dose 1 EA; Start 11/24/18 at 20:30 Glucose (Glutose) 15 gm Q15M PRN PO DECREASED GLUCOSE Last administered on 12/11/18 09:45; Admin Dose 15 GM; Start 11/24/18 at 20:30 Glucose (Glutose) 22.5 gm Q15M PRN PO DECREASED GLUCOSE; Start 11/24/18 at 20:30 Dextrose (D50w Syringe) 25 ml Q15M PRN IV DECREASED GLUCOSE Last administered on 11/26/18 01:40; Admin Dose 25 ML; Start 11/24/18 at 20:30 Dextrose (D50w Syringe) 50 ml Q15M PRN IV DECREASED GLUCOSE Last administered on 11/29/18 06:01; Admin Dose 50 ML; Start 11/24/18 at 20:30 Glucagon (Glucagen) 1 mg Q15M PRN IM DECREASED GLUCOSE; Start 11/24/18 at 20:30 Glucose (Glutose) 15 gm Q15M PRN BUCCAL DECREASED GLUCOSE; Start 11/24/18 at 20: 30 Insulin Aspart (Novolog Insulin Pen) NOVOLOG *MILD* ALGORITHM WITH MEALS BEDTIME SC Last administered on 12/13/18 08:56; Admin Dose 2 UNIT; Start 11/28/18 at 11:30 Metoprolol Tartrate (Lopressor) 50 mg BID PO Last administered on 12/14/18 09:41; Admin Dose 50 MG; Start 11/28/18 at 21:00 Metolazone (Zaroxolyn) 2.5 mg DAILY PO Last administered on 12/14/18 09:40; Admin Dose 2.5 MG; Start 12/07/18 at 09:00 Albuterol/ Ipratropium (Duoneb) 3 ml Q4H RESP THERAPY PRN HHN SHORTNESS OF BREATH Last administered on 12/08/18 11:00; Admin Dose 3 ML; Start 12/07/18 at 10:00 Alteplase, Recombinant (Cathflo (Activase)) 6 mg MAY REPEAT X1 PRN CATHETER IF CATHETER REMAINS OCCULUDED Last administered on 12/08/18 06:01; Admin Dose 6 MG; Start 12/08/18 at 05:30 Albuterol/ Ipratropium (Duoneb) 3 ml Q6H RESP THERAPY HHN Last administered on 12/14/18 13:46; Admin Dose 3 ML; Start 12/08/18 at 11:00 Azithromycin (Zithromax) 250 mg DAILY PO Last administered on 12/14/18 09:40; Admin Dose 250 MG; Start 12/10/18 at 12:30 Insulin Glargine (Lantus) 16 units DAILY@0800 SC Last administered on 12/14/18 09:43; Admin Dose 16 UNITS; Start 12/10/18 at 12:30 Insulin Aspart (Novolog Insulin Pen) 5 unit WITH MEALS SC Last administered on 12/14/18 17:42; Admin Dose 5 UNIT; Start 12/10/18 at 11:30 Hydralazine HCl (Apresoline) 25 mg Q8 PO Last administered on 12/14/18 15:07; Admin Dose 25 MG; Start 12/10/18 at 22:00 Furosemide (Lasix) 40 mg BID DIURETICS PO Last administered on 12/14/18 17:40 ; Admin Dose 40 MG; Start 12/13/18 at 18:00 GHASSAN SHERMAN 25, 2019 18:38
== END 2018-12-14 19:08 | disposition hospice, home (50) | DRG 871 ==
LOC: E/R 14:32 → TEL 17:17 → ICU 11-23 10:12 → 6WM 11-29 07:55 → PP2 12-07 15:13
PROVIDERS: ADMIT Internal Medicine; ATTEND Internal Medicine
PROC: 5A1D70Z Performance of Urinary Filtration, Intermittent, Less than 6 Hours Per Day (ICD-10-PCS; 2018-11-23)
PROC: 02HV33Z Insertion of Infusion Device into Superior Vena Cava, Percutaneous Approach (ICD-10-PCS; principal; 2018-11-24)
PROC: 30233N1 Transfusion of Nonautologous Red Blood Cells into Peripheral Vein, Percutaneous Approach (ICD-10-PCS; 2018-11-30)
PROC: 0W9B3ZZ Drainage of Left Pleural Cavity, Percutaneous Approach (ICD-10-PCS; 2018-12-09)
DX: A41.9 Sepsis, unspecified organism (principal); J18.9 Pneumonia, unspecified organism; I50.33 Acute on chronic diastolic (congestive) heart failure; J96.01 Acute respiratory failure with hypoxia; G92 Toxic encephalopathy; I13.0 Hypertensive heart and chronic kidney disease with heart failure and stage 1 through stage 4 chronic kidney disease, or unspecified chronic kidney disease; J44.1 Chronic obstructive pulmonary disease with (acute) exacerbation; N39.0 Urinary tract infection, site not specified; J90 Pleural effusion, not elsewhere classified; L03.116 Cellulitis of left lower limb; N17.9 Acute kidney failure, unspecified; L03.115 Cellulitis of right lower limb; B37.49 Other urogenital candidiasis; N18.4 Chronic kidney disease, stage 4 (severe); D75.82 Heparin induced thrombocytopenia (HIT); R41.0 Disorientation, unspecified; Z66 Do not resuscitate; Z87.891 Personal history of nicotine dependence; Z68.39 Body mass index [BMI] 39.0-39.9, adult; D64.9 Anemia, unspecified; I48.91 Unspecified atrial fibrillation; Z86.711 Personal history of pulmonary embolism; Z79.02 Long term (current) use of antithrombotics/antiplatelets; I35.0 Nonrheumatic aortic (valve) stenosis; E66.01 Morbid (severe) obesity due to excess calories; E87.5 Hyperkalemia; E11.65 Type 2 diabetes mellitus with hyperglycemia; B95.4 Other streptococcus as the cause of diseases classified elsewhere; B96.89 Other specified bacterial agents as the cause of diseases classified elsewhere; S30.91XA Unspecified superficial injury of lower back and pelvis, initial encounter; R31.9 Hematuria, unspecified; R60.1 Generalized edema
CPT/HCPCS: 32555; 36430; 36569; 36600; 71045; 71250; 76937; 80048; 80053; 80162; 81001; 81003; 82043; 82803; 82962; 83036; 83605; 83735; 83880; 84100; 84155; 84300; 84484; 85014; 85018; 85025; 85610; 85730; 86706; 86850; 86900; 86901; 86920; 87040; 87070; 87081; 87086; 87340; 90935; 92526; 92610; 93005; 93970; 93971; 94640; 94660; 94664; 96365; 96375; 97110; 97162; 97164; 97530; C1752; C1769; J0692; J0696; J1450; J1630; J1644; J1815; J1940; J1956; J2060; J2270; J2543; J2920; J2930; J3370; J7040; J7042; J7050; P9016; P9047